=== PATIENT | female | born 1950 | race Two or more races ===

== ENCOUNTER 2023-06-15 10:20 | Outpatient (OUT) | payer MEDICARE, SELFPAY ==
--- NOTE | 2023-06-15 10:43 | MR_ITS ---
[address] [address] Patient Name: EDITH KHOURY MRN: [facility]:[id number] date: 1950 Sex: F Assigned Patient Location: MRI Current Patient Location: Accession/Order Number: [id number] Exam Date: 06/15/2023 10:49 Report Date: 06/16/2023 07:38 At the request of: NON-STAFF PHYSICIAN Procedure: MR lumbar spine wo con EXAMINATION: MR lumbar spine wo con HISTORY: Sacroiliitis M46.1 COMPARISON: 08/21/2020 TECHNIQUE: A variety of imaging planes and parameters were utilized for visualization of suspected pathology. FINDINGS: For the purposes of numbering, sagittal T2 image # 8 extends from the T10 vertebral body superiorly to the S3-S4 level inferiorly. PARASPINAL AREA: Normal with no visible mass. BONES: Normal alignment with no acute fracture or spondylolisthesis. Mild heterogeneous appearance of the marrow likely age-related change. Moderate degenerative spondylosis and facet osteoarthropathy CORD/CAUDA EQUINA: Normal caliber, contour, and signal intensity. DISC LEVELS: 12-L1: No significant disc/facet abnormality, spinal stenosis, or foraminal stenosis. L1-L2: No significant disc/facet abnormality, spinal stenosis, or foraminal stenosis. L2-L3: Moderate disc space narrowing and disc desiccation. Moderate diffuse disc/osteophyte complex and ligamentum flavum hypertrophy and facet osteoarthropathy. Moderate trefoil narrowing of the central canal, axial image #17. Minimal right and no left foraminal stenosis L3-L4: Mild disc space narrowing and disc desiccation. Mild diffuse disc/osteophyte complex and ligamentum flavum hypertrophy and facet osteoarthropathy. Moderate trefoil narrowing of the central canal, axial image #22. Moderate right and no left foraminal stenosis L4-L5: Disc collapse with endplate sclerosis right greater than left. Moderate diffuse disc/osteophyte complex and ligamentum flavum hypertrophy and facet osteoarthropathy. Severe central canal stenosis. Moderate bilateral foraminal stenosis L5-S1: Disc desiccation. Broad-based posterior disc herniation the protrusion type extending up to 3.8 mm. Bilateral facet osteoarthropathy. No central canal or right foraminal stenosis. Moderate narrowing of the left neural foramen. MR/MR lumbar spine wo con IMPRESSION: Degenerative changes resulting in moderate to severe central and foraminal stenosis at multiple levels as detailed above Electronically authenticated by: MARJORIE SUTTON Date: 06/16/2023 07:38
== END 2023-06-15 10:21 | disposition home or self-care (01) ==
LOC: MRI 10:23
PROVIDERS: PCP Family Medicine
DX: M46.1 Sacroiliitis, not elsewhere classified (principal); M51.36 Other intervertebral disc degeneration, lumbar region; M51.26 Other intervertebral disc displacement, lumbar region; M48.061 Spinal stenosis, lumbar region without neurogenic claudication; M47.816 Spondylosis without myelopathy or radiculopathy, lumbar region
CPT/HCPCS: 72148

== ENCOUNTER 2023-06-18 23:02 | Emergency (ER) | payer MEDICARE, SELFPAY ==
[2023-06-18 23:13] VITALS: BP 129/96; PULSE 81; RESP 16; TEMP 36.8; O2SAT 97; BMI 75.7
[2023-06-18] MEDS: IBUPROFEN 600 MG TABLET PO (23:51)
--- NOTE | 2023-06-18 23:53 | ED.SKABFB1 ---
HPI - Skin/Abscess/Foreign Bdy General Chief complaint: Skin/Abscess/Foreign Body Stated complaint: ABSCESS, LOWER EXTREMITY PAIN Time Seen by Provider: 06/18/23 23:19 Source: patient Mode of arrival: walk-in Limitations: no limitations History of Present Illness HPI narrative: The patient is doing diabetes coming to the ER with a right toe pain she mentioned that she already have a history of ingrowing toenail and she is supposed to see podiatry in 3 days The patient denies any other complaints she admits to walking more recently and also complaining of pain at the site No injury no other complaints Related Data Previous Rx's Medication Instructions Recorded clindamycin HCl 150 mg capsule 150 mg PO Q8H 3 days #9 caps 06/18/23 Allergies Allergy/AdvReac Type Severity Reaction Status Date / Time azithromycin Allergy Mild Hives Verified 06/18/23 23:25 [From Zithromax Z-Rk] cetirizine [From Zyrtec] Allergy Mild Hypertensio Verified 06/18/23 23:25 n ciprofloxacin [From Cipro] Allergy Mild Abdominal Verified 06/18/23 23:25 Pain Sulfa (Sulfonamide Allergy Mild Abdominal Verified 06/18/23 23:25 Antibiotics) Pain sulfamethoxazole Allergy Mild Nausea Verified 06/18/23 23:25 [From Bactrim] trimethoprim [From Bactrim] Allergy Mild Nausea Verified 06/18/23 23:25 Penicillins Allergy Hives Verified 06/18/23 23:25 morphine AdvReac Severe Palpitation Verified 06/18/23 23:25 s Review of Systems ROS Status of ROS 10 or more systems reviewed and unremarkable except as noted in history and below Exam Narrative Exam Narrative: Nurses notes and vital signs reviewed and patient is not hypoxic. General: Well-appearing and in no apparent distress. Skin: Warm, dry, no pallor noted. No rash. Head: Normocephalic, atraumatic. Neck: Supple, non-tender. Eye: Pupils are equal, round and EOMI. No scleral icterus. Ears, Nose, Mouth, and Throat: TM are clear, no nasal mucosal hypertrophy. Oral mucosa is moist, no posterior oropharynx erythema, uvula is mid-line Cardiovascular: Regular Rate and Rhythm without murmur, gallop or rub. Respiratory: No accessory muscle use or respiratory distress. Lungs are clear to auscultation, no wheezing, rales or rhonchi Chest Wall: no tenderness Back: No midline thoracic or lumbar vertebral tenderness. No CVA tenderness Musculoskeletal: normal ROM, no calf or popliteal tenderness, no lower extremity edema/swelling at the medial aspect of the greater toe nail there is a spot of 2 mm that is more ecchymosis that is mildly tender GI: Abdomen is soft, non-distended. Normal bowel sounds. No masses appreciated. No tenderness to palpation. No rebound, guarding, or rigidity noted. Neurological: A&O x4. No cranial nerve dysfunction observed. No truncal ataxia. Moves all extremities. Sensation intact. Psychiatric: Cooperative and interactive. Normal mood and affect. Constitutional Vital Signs, click to edit/add: Last Vital Signs Temp 98.2 F 06/18/23 23:13 Pulse 81 06/18/23 23:13 Resp 16 06/18/23 23:13 BP 129/96 H 06/18/23 23:13 Pulse Ox 97 06/18/23 23:13 O2 Del Method Room Air 06/18/23 23:13 Course Vital Signs Vital signs: Vital Signs Temperature 98.2 F 06/18/23 23:13 Pulse Rate 81 06/18/23 23:13 Respiratory Rate 16 06/18/23 23:13 Blood Pressure 129/96 H 06/18/23 23:13 Pulse Oximetry 97 06/18/23 23:13 Oxygen Delivery Method Room Air 06/18/23 23:13 Temperature 98.2 F 06/18/23 23:13 Pulse Rate 81 06/18/23 23:13 Respiratory Rate 16 06/18/23 23:13 Blood Pressure 129/96 H 06/18/23 23:13 Pulse Oximetry 97 06/18/23 23:13 Oxygen Delivery Method Room Air 06/18/23 23:13 MDM - Skin/Abscess/Foreign Bdy MDM Narrative Medical decision making narrative: The patient spot in her toe is mostly ecchymosis but with the patient history of being diabetic she was given 3 days of antibiotic prophylaxis she is supposed to see podiatry in 3 days She was instructed on the importance of following up with podiatry in 3 days The patient is to follow up with primary care physician in next 2-3 days or to return to the emergency department should any of the signs or symptoms worsen or new symptoms develop. The patient agrees with the following Diagnosis and Treatment plan and the patient will be discharged home. Discharge Plan Discharge Chief Complaint: Skin/Abscess/Foreign Body Clinical Impression: Ingrown nail Patient Disposition: Home, Self-Care Time of Disposition Decision: 23:40 Condition: Good Mode of Transportation: Private Vehicle Prescriptions / Home Meds: New clindamycin HCl 150 mg capsule 150 mg PO Q8H 3 Days Qty: 9 0RF Instructions: Ingrown Nail (ED) Stand Alone Forms: Portal Instructions Referrals: MATT SHEIKH [Primary Care Provider] - 1 week Zbigniew Jensen MD [Physician] - 06/22/23
== END 2023-06-18 23:55 | disposition home or self-care (01) ==
PROVIDERS: Emergency Provider Emergency Medicine; PCP Family Medicine
DX: L60.0 Ingrowing nail (principal); E11.9 Type 2 diabetes mellitus without complications
CPT/HCPCS: 99283

== ENCOUNTER 2023-07-20 18:21 | Emergency (ER) | payer MEDICARE, SELFPAY ==
[2023-07-20 18:41] VITALS: BP 170/60; PULSE 73; RESP 20; O2SAT 99; BMI 33.1
--- NOTE | 2023-07-20 18:46 | ECG_ITS ---
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
--- NOTE | 2023-07-20 18:46 | XR_ITS ---
[address] [address] Patient Name: EDITH KHOURY MRN: [facility]:[id number] date: 1950 Sex: F Assigned Patient Location: ER Current Patient Location: ER Accession/Order Number: [id number] Exam Date: 07/20/2023 19:15 Report Date: 07/20/2023 19:57 At the request of: TORI ARTEAGA Procedure: XR cervical spine 2-3V Exam: Radiographs: XR cervical spine 2-3V Reason for exam: Neck pain Comparison: Plain films dated 08/09/2018 XR/XR cervical spine 2-3V IMPRESSION: No radiographically evident cervical spine fractures. Mild anterolisthesis of C3 on C4 and C4-C5. Mild cervical spine degenerative changes with preserved intervertebral disc heights. Remainder unremarkable. Electronically authenticated by: SHEY RODRIGUEZ Date: 07/20/2023 19:57
--- NOTE | 2023-07-20 18:48 | ED_ITS ---
HPI - Neck Pain/Injury General Chief Complaint: Neck Pain/Injury Stated Complaint: NECK PAIN Time Seen by Provider: 07/20/23 18:41 Source: patient Mode of arrival: walk-in Limitations: no limitations History of Present Illness HPI Narrative: patient is a 73-year-old female who presents to the emergency department for a three day history of pain in the back of the neck radiating to the left side of the neck and behind the left ear. She denies any mechanism of injury or trauma. Pain is worse with movement of the head. She denies any pain radiation into the left arm or numbness or tingling of the left arm. no medications taken prior to arrival. Related Data Previous Rx's Medication Instructions Recorded clindamycin HCl 150 mg capsule 150 mg PO Q8H 3 days #9 caps 06/18/23 methocarbamol 500 mg tablet 500 mg PO Q8H #20 tabs 07/20/23 tramadol 50 mg tablet 50 mg PO Q4H PRN pain #15 tabs 07/20/23 Allergies Allergy/AdvReac Type Severity Reaction Status Date / Time azithromycin Allergy Mild Hives Verified 06/18/23 23:25 [From Zithromax Z-Rk] cetirizine [From Zyrtec] Allergy Mild Hypertensio Verified 06/18/23 23:25 n ciprofloxacin [From Cipro] Allergy Mild Abdominal Verified 06/18/23 23:25 Pain Sulfa (Sulfonamide Allergy Mild Abdominal Verified 06/18/23 23:25 Antibiotics) Pain sulfamethoxazole Allergy Mild Nausea Verified 06/18/23 23:25 [From Bactrim] trimethoprim [From Bactrim] Allergy Mild Nausea Verified 06/18/23 23:25 Penicillins Allergy Hives Verified 06/18/23 23:25 morphine AdvReac Severe Palpitation Verified 06/18/23 23:25 s Review of Systems ROS Constitutional Denies: fever or chills Ears, nose, mouth, and throat Reports: neck pain Cardiovascular Denies: chest pain Respiratory Denies: shortness of breath Gastrointestinal Denies: nausea or vomiting Musculoskeletal Reports: neck pain; Denies: back pain Integumentary/Breast Denies: rash Neurological Denies: headache Allergic/Immunologic Denies: hives Exam Narrative Exam Narrative: Gen.: Awake, alert, in no distress Head: Normocephalic, atraumatic ENT: Moist mucous membranes; left tympanic membrane is clear with a white tympanic membrane tube present Neck: no posterior bony point tenderness of the cervical spine with diffuse tenderness of the left paraspinal cervical muscles and left trapezius muscle. 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 Normal flexion and extension of the upper extremities, no deficit in biceps tendon strength. Normal abduction of the left shoulder. Psych: Normal mood and affect Neuro: No focal neuro deficit Skin: Warm, dry, intact Constitutional Vital Signs, click to edit/add: Last Vital Signs Pulse 73 07/20/23 18:41 Resp 20 07/20/23 18:41 BP 170/60 H 07/20/23 18:41 Pulse Ox 99 07/20/23 18:41 O2 Del Method Room Air 07/20/23 18:41 Course Vital Signs Vital signs: Vital Signs Pulse Rate 73 07/20/23 18:41 Respiratory Rate 20 07/20/23 18:41 Blood Pressure 170/60 H 07/20/23 18:41 Pulse Oximetry 99 07/20/23 18:41 Oxygen Delivery Method Room Air 07/20/23 18:41 Pulse Rate 73 07/20/23 18:41 Respiratory Rate 20 07/20/23 18:41 Blood Pressure 170/60 H 07/20/23 18:41 Pulse Oximetry 99 07/20/23 18:41 Oxygen Delivery Method Room Air 07/20/23 18:41 MDM - Neck Pain/Injury MDM Narrative Medical decision making narrative: x-rays with no evidence of acute process, patient with degenerative disc disease. Exam is consistent with muscular pain of the neck, the patient had an EKG that was unremarkable. She is discharged home with short course of analgesics and muscle relaxants follow-up with her PCP. OARRS shows the patient has been on tramadol chronically in the past but has not been on this medication in several months. She is prescribed tramadol and Robaxin for home. Rest, ice, gentle stretching. Follow-up with PCP and return to the Emergency Room if symptoms change or worsen Medical Records Attestation: I reviewed the patient's medical records. Imaging Data XR cervical spine: Attestation: I have reviewed the pertinent imaging results. Radiologist's impression: Procedure: XR cervical spine 2-3V Exam: Radiographs: XR cervical spine 2-3V Reason for exam: Neck pain Comparison: Plain films dated 08/09/2018 IMPRESSION: No radiographically evident cervical spine fractures. Mild anterolisthesis of C3 on C4 and C4-C5. Mild cervical spine degenerative changes with preserved intervertebral disc heights. Remainder unremarkable. Electronically authenticated by: SHEY RODRIGUEZ Date: 07/20/2023 19:57 ECG Data Attestation: I personally reviewed and interpreted this ECG as follows: (normal sinus rhythm at a rate of sixty-three, right bundle branch block, no acute ST elevation or ectopy. EKG reviewed by attending physician.) Discharge Plan Discharge Chief Complaint: Neck Pain/Injury Clinical Impression: Acute neck pain, Cervical muscle strain, Degenerative arthritis of cervical spine Patient Disposition: Home, Self-Care Time of Disposition Decision: 20:18 Condition: Good Prescriptions / Home Meds: New methocarbamol 500 mg tablet 500 mg PO Q8H Qty: 20 0RF tramadol 50 mg tablet 50 mg PO Q4H PRN (Reason: pain) Qty: 15 0RF No Action clindamycin HCl 150 mg capsule 150 mg PO Q8H 3 Days Qty: 9 0RF Stand Alone Forms: Portal Instructions Referrals: MATT SHEIKH [Primary Care Provider] - 1 week
[2023-07-20] MEDS: METHOCARBAMOL 500 MG TABLET PO (19:58)
[2023-07-20 20:52] VITALS: PULSE 86; RESP 16; O2SAT 97
== END 2023-07-20 20:52 | disposition home or self-care (01) ==
PROVIDERS: Emergency Provider Emergency Medicine; PCP Family Medicine
DX: S16.1XXA Strain of muscle, fascia and tendon at neck level, initial encounter (principal); M54.2 Cervicalgia; M47.812 Spondylosis without myelopathy or radiculopathy, cervical region; X58.XXXA Exposure to other specified factors, initial encounter
CPT/HCPCS: 72040; 93005; 99284

== ENCOUNTER 2023-07-22 08:53 | Emergency (ER) | payer MEDICARE, SELFPAY ==
[2023-07-22] VITALS (16 sets, daily range): BP systolic 132–169; BP diastolic 55–61; PULSE 58–70; RESP 13–30; TEMP 36.7; O2SAT 92–96; BMI 33.2
--- NOTE | 2023-07-22 09:30 | ECG_ITS ---
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
[2023-07-22] MEDS: ONDANSETRON PF 4 MG/2 ML VIAL IV (09:45)
[2023-07-22] MEDS: FAMOTIDINE/PF 20 MG/2 ML VIAL IV (09:45)
[2023-07-22] MEDS: KETOROLAC TROMETHAMINE 30 MG/ML VIAL 15 MG IVP ×2 (09:45→11:44)
[2023-07-22 10:01] LABS: Basophils Absolute Auto 0.1 10^3/uL (0.0-0.1); Basophils Percent Auto 0.6 % (0.2-2.0); Eosinophils Absolute Auto 0.1 10^3/uL (0.0-0.7); Eosinophils Percent Auto 1.3 % (0.9-7.0); Hematocrit 34.3 % (36.0-48.0); Hemoglobin 11.4 g/dL (12.0-16.0); Immature Granulocytes Abs Auto 0.03 10^3/uL (0.00-0.03); Immature Granulocytes Pct Auto 0.4 % (0.0-0.5); Lymphocytes Absolute Auto 1.6 10^3/uL (1.2-3.8); Lymphocytes Percent Auto 19.2 % (20.5-60.0); Mean Corpuscular HGB Conc 33.2 g/dL (29.9-35.2); Mean Corpuscular Hemoglobin 30.6 pg (26.7-34.0); Mean Platelet Volume 9.4 fL (9.5-13.5); Monocytes Absolute Auto 0.4 10^3/uL (0.3-0.8); Monocytes Percent Auto 4.6 % (1.7-12.0); Neutrophils Absolute Auto 6.1 10^3/uL (1.4-6.5); Neutrophils Percent Auto 73.9 % (43.0-75.0); Platelet Count 222 10^3/uL (150-450); Red Blood Count 3.73 10^6/uL (4.20-5.40); White Blood Count 8.3 10^3/uL (4.0-11.0)
[2023-07-22 10:10] LABS: Alanine Aminotransferase 21 U/L (14-59); Albumin Globulin Ratio 0.9; Albumin Level 3.1 g/dL (3.4-5.0); Alkaline Phosphatase 88 U/L (46-116); Anion Gap 11.8; Aspartate Amino Transferase 15 U/L (15-37); BUN Creatinine Ratio 25.4; Bilirubin Total 0.7 mg/dL (0.2-1.0); Carbon Dioxide 26.7 mmol/L (21.0-32.0); Chloride 101 mmol/L (98-107); Estimated GFR (African America >60 (>=60); Estimated GFR (Non-African Ame >60 (>=60); Globulin 3.6 g/dL; Glucose 162 mg/dL (74-106); Potassium 3.5 mmol/L (3.5-5.1); Sodium 136 mmol/L (136-145); Total Protein 6.7 g/dL (6.4-8.2)
[2023-07-22 10:13] LABS: Troponin I High Sensitivity 6.3 pg/mL (4.0-51.3)
--- NOTE | 2023-07-22 11:01 | ED_ITS ---
HPI - Back Pain/Injury General Chief Complaint: Back Pain/Injury Stated Complaint: BACK PAIN/NECK PAIN Time Seen by Provider: 07/22/23 09:24 Source: patient Mode of arrival: walk-in Limitations: no limitations History of Present Illness HPI Narrative: The patient is coming to the ER after she was just evaluated almost 2 days ago for her left-sided neck pain complaint is that she will woke up this morning with the neck pain and nausea, although initially the patient mentioned that she had the nausea after she took her tramadol but then she said that she woke up with nausea, there was no chest pain at any time no fever no chills no coughing and her neck pain is still there and is exacerbated with movement There is no sweating or any other complaints there was no difficulty breathing Related Data Previous Rx's Medication Instructions Recorded clindamycin HCl 150 mg capsule 150 mg PO Q8H 3 days #9 caps 06/18/23 methocarbamol 500 mg tablet 500 mg PO Q8H #20 tabs 07/20/23 tramadol 50 mg tablet 50 mg PO Q4H PRN pain #15 tabs 07/20/23 famotidine 20 mg tablet (Pepcid) 20 mg PO BID #20 tabs 07/22/23 meloxicam 7.5 mg tablet 7.5 mg PO DAILY PRN pain #10 tabs 07/22/23 ondansetron 4 mg disintegrating 4 mg PO Q8H nausea and vomiting 07/22/23 tablet 24 hours #3 tabs Allergies Allergy/AdvReac Type Severity Reaction Status Date / Time azithromycin Allergy Mild Hives Verified 06/18/23 23:25 [From Zithromax Z-Rk] cetirizine [From Zyrtec] Allergy Mild Hypertensio Verified 06/18/23 23:25 n ciprofloxacin [From Cipro] Allergy Mild Abdominal Verified 06/18/23 23:25 Pain Sulfa (Sulfonamide Allergy Mild Abdominal Verified 06/18/23 23:25 Antibiotics) Pain sulfamethoxazole Allergy Mild Nausea Verified 06/18/23 23:25 [From Bactrim] trimethoprim [From Bactrim] Allergy Mild Nausea Verified 06/18/23 23:25 Penicillins Allergy Hives Verified 06/18/23 23:25 morphine AdvReac Severe Palpitation Verified 06/18/23 23:25 s Review of Systems ROS Status of ROS 10 or more systems reviewed and unremarkable except as noted in history and below [facility] Social History Smoking status: Never smoker Exam Narrative Exam Narrative: Nurses notes and vital signs reviewed and patient is not hypoxic. General: Well-appearing and in no apparent distress. Skin: Warm, dry, no pallor noted. No rash. Head: Normocephalic, atraumatic. Neck: The patient have no intervertebral line tenderness she have paraspinal muscle tenderness in both sides mostly to the lower cervical level Eye: Pupils are equal, round and EOMI. No scleral icterus. Ears, Nose, Mouth, and Throat: TM are clear, no nasal mucosal hypertrophy. Oral mucosa is moist, no posterior oropharynx erythema, uvula is mid-line Cardiovascular: Regular Rate and Rhythm without murmur, gallop or rub. Respiratory: No accessory muscle use or respiratory distress. Lungs are clear to auscultation, no wheezing, rales or rhonchi Chest Wall: no tenderness Back: No midline thoracic or lumbar vertebral tenderness. No CVA tenderness Musculoskeletal: normal ROM, no calf or popliteal tenderness, no lower extremity edema/swelling GI: Abdomen is soft, non-distended. Normal bowel sounds. No masses appreciated. No tenderness to palpation. No rebound, guarding, or rigidity noted. Neurological: A&O x4. No cranial nerve dysfunction observed. No truncal ataxia. Moves all extremities. Sensation intact. Psychiatric: Cooperative and interactive. Normal mood and affect. Constitutional Vital Signs, click to edit/add: Last Vital Signs Temp 98.0 F 07/22/23 08:59 Pulse 65 07/22/23 10:20 Resp 14 07/22/23 10:20 BP 132/55 07/22/23 10:00 Pulse Ox 94 L 07/22/23 10:20 O2 Del Method Room Air 07/22/23 08:59 Course Vital Signs Vital signs: Vital Signs Temperature 98.0 F 07/22/23 08:59 Pulse Rate 63 07/22/23 08:59 Respiratory Rate 16 07/22/23 08:59 Blood Pressure 169/61 H 07/22/23 08:59 Pulse Oximetry 96 07/22/23 08:59 Oxygen Delivery Method Room Air 07/22/23 08:59 Temperature 98.0 F 07/22/23 08:59 Pulse Rate 65 07/22/23 10:20 Respiratory Rate 14 07/22/23 10:20 Blood Pressure 132/55 07/22/23 10:00 Pulse Oximetry 94 L 07/22/23 10:20 Oxygen Delivery Method Room Air 07/22/23 08:59 MDM - Back Pain/Injury MDM Narrative Medical decision making narrative: 2The patient EKG upon presentation showing sinus rhythm with a heart rate of 68 no significant acute changes compared to old EKG The patient CBC chemistry as well as troponin were negative the troponin will be repeated again just to make sure the patient have no cardiac reason for her nausea But she is presenting with a nausea and she admits that she took her tramadol on empty stomach Right now the patient was feeling much better after she was treated in the ER with Toradol as well as Zofran The patient was discharged home with Pepcid Zofran for only 24 hours as well as Mobic for pain avoid using tramadol unless she did that for pain if that Mobic is not working also she was instructed to take all her medication with food The patient is to follow up with primary care physician in next 2-3 days or to return to the emergency department should any of the signs or symptoms worsen or new symptoms develop. The patient agrees with the following Diagnosis and Treatment plan and the patient will be discharged home. Lab Data Labs: Lab Results 07/22/23 07/22/23 Range/Units 09:38 10:47 WBC 8.3 (4.0-11.0) 10^3/uL RBC 3.73 L (4.20-5.40) 10^6/uL Hgb 11.4 L (12.0-16.0) g/dL Hct 34.3 L (36.0-48.0) % MCV 92.0 (81.0-99.0) fL MCH 30.6 (26.7-34.0) pg MCHC 33.2 (29.9-35.2) g/dL RDW 14.0 (11.0-15.0) % Plt Count 222 (150-450) 10^3/uL MPV 9.4 L (9.5-13.5) fL Neut % (Auto) 73.9 (43.0-75.0) % Lymph % (Auto) 19.2 L (20.5-60.0) % Mcdonald % (Auto) 4.6 (1.7-12.0) % Eos % (Auto) 1.3 (0.9-7.0) % Baso % (Auto) 0.6 (0.2-2.0) % Neut # (Auto) 6.1 (1.4-6.5) 10^3/uL Lymph # (Auto) 1.6 (1.2-3.8) 10^3/uL Mcdonald # (Auto) 0.4 (0.3-0.8) 10^3/uL Eos # (Auto) 0.1 (0.0-0.7) 10^3/uL Baso # (Auto) 0.1 (0.0-0.1) 10^3/uL Abs Immat Gran (auto) 0.03 (0.00-0.03) 10^3/uL Imm/Tot Granulo (auto) 0.4 (0.0-0.5) % Sodium 136 (136-145) mmol/L Potassium 3.5 (3.5-5.1) mmol/L Chloride 101 (98-107) mmol/L Carbon Dioxide 26.7 (21.0-32.0) mmol/L Anion Gap 11.8 BUN 16.0 (7.0-18.0) mg/dL Creatinine 0.63 (0.55-1.02) mg/dL Est GFR ( Amer) >60 (>=60) Est GFR (Non-Af Amer) >60 (>=60) BUN/Creatinine Ratio 25.4 Glucose 162 H (74-106) mg/dL Calcium 9.0 (8.5-10.1) mg/dL Total Bilirubin 0.7 (0.2-1.0) mg/dL AST 15 (15-37) U/L ALT 21 (14-59) U/L Alkaline Phosphatase 88 (46-116) U/L Troponin I High Sens 6.3 7.3 (4.0-51.3) pg/mL Total Protein 6.7 (6.4-8.2) g/dL Albumin 3.1 L (3.4-5.0) g/dL Globulin 3.6 g/dL Albumin/Globulin Ratio 0.9 Discharge Plan Discharge Chief Complaint: Back Pain/Injury Clinical Impression: Pill gastritis Patient Disposition: Home, Self-Care Time of Disposition Decision: 11:24 Condition: Good Prescriptions / Home Meds: New famotidine [Pepcid] 20 mg tablet 20 mg PO BID Qty: 20 0RF meloxicam 7.5 mg tablet 7.5 mg PO DAILY PRN (Reason: pain ) Qty: 10 0RF ondansetron 4 mg tablet,disintegrating 4 mg PO Q8H 1 Days Qty: 3 0RF No Action clindamycin HCl 150 mg capsule 150 mg PO Q8H 3 Days Qty: 9 0RF methocarbamol 500 mg tablet 500 mg PO Q8H Qty: 20 0RF tramadol 50 mg tablet 50 mg PO Q4H PRN (Reason: pain) Qty: 15 0RF Instructions: Gastritis (ED) Stand Alone Forms: Portal Instructions Referrals: MATT SHEIKH [Primary Care Provider] - 1 week
[2023-07-22 11:13] LABS: Troponin I High Sensitivity 7.3 pg/mL (4.0-51.3)
== END 2023-07-22 12:12 | disposition home or self-care (01) ==
PROVIDERS: Emergency Provider Emergency Medicine; PCP Family Medicine
DX: K29.60 Other gastritis without bleeding (principal); Z79.899 Other long term (current) drug therapy
CPT/HCPCS: 36415; 80053; 84484; 85025; 93005; 96374; 96375; 96376; 99285

== ENCOUNTER 2024-01-01 17:40 | Emergency (ER) | payer MEDICARE, SELFPAY ==
[2024-01-01 17:45] VITALS: BP 153/83; PULSE 83; RESP 18; TEMP 36.9; O2SAT 99; BMI 30.9
--- NOTE | 2024-01-01 18:08 | ED_ITS ---
HPI - Dental/Oral General Chief complaint: Dental/Oral Stated complaint: MOUTH PAIN Time Seen by Provider: 01/01/24 17:57 Source: patient Mode of arrival: walk-in Limitations: no limitations History of Present Illness HPI Narrative: The patient presented with a dental pain that started after she was eating a hard candy. Pain in the right upper dental area no other complaints Related Data Home Medications Medication Instructions Recorded Confirmed albuterol sulfate 90 mcg/actuation 2 puff inhalation DAILY PRN 01/01/24 01/01/24 aerosol inhaler shortness of breath or wheezing amlodipine 2.5 mg tablet 2.5 mg PO DAILY 01/01/24 01/01/24 aspirin 81 mg tablet,delayed 81 mg PO DAILY 01/01/24 01/01/24 release (Adult Aspirin Regimen) atorvastatin 10 mg tablet 10 mg PO DAILY 01/01/24 01/01/24 benzonatate 100 mg capsule 100 mg PO TID PRN cough 01/01/24 01/01/24 doxycycline monohydrate 100 mg 100 mg PO DAILY 01/01/24 01/01/24 capsule fluticasone 250 mcg-salmeterol 50 1 inh inhalation Q12H 01/01/24 01/01/24 mcg/dose blistr powdr for inhalation levothyroxine 100 mcg tablet 100 mcg PO DAILY 01/01/24 01/01/24 (Synthroid) loratadine 10 mg tablet 10 mg PO DAILY 01/01/24 01/01/24 metformin 500 mg tablet 500 mg PO DAILY 01/01/24 01/01/24 mometasone 50 mcg/actuation nasal 1 spray intranasal PRN allergy 01/01/24 spray symptoms pantoprazole 40 mg tablet,delayed 40 mg PO DAILY 01/01/24 01/01/24 release ramipril 10 mg capsule 10 mg PO DAILY 01/01/24 01/01/24 Previous Rx's Medication Instructions Recorded methocarbamol 500 mg tablet 500 mg PO Q8H #20 tabs 07/20/23 tramadol 50 mg tablet 50 mg PO Q4H PRN pain #15 tabs 07/20/23 meloxicam 7.5 mg tablet 7.5 mg PO DAILY PRN pain #10 tabs 07/22/23 clindamycin HCl 300 mg capsule 300 mg PO Q8H 7 days #21 caps 01/01/24 meloxicam 7.5 mg tablet 7.5 mg PO DAILY PRN pain #10 tabs 01/01/24 Allergies Allergy/AdvReac Type Severity Reaction Status Date / Time azithromycin Allergy Mild Hives Verified 06/18/23 23:25 [From Zithromax Z-Rk] cetirizine [From Zyrtec] Allergy Mild Hypertensio Verified 06/18/23 23:25 n ciprofloxacin [From Cipro] Allergy Mild Abdominal Verified 06/18/23 23:25 Pain Sulfa (Sulfonamide Allergy Mild Abdominal Verified 06/18/23 23:25 Antibiotics) Pain sulfamethoxazole Allergy Mild Nausea Verified 06/18/23 23:25 [From Bactrim] trimethoprim [From Bactrim] Allergy Mild Nausea Verified 06/18/23 23:25 Penicillins Allergy Hives Verified 06/18/23 23:25 morphine AdvReac Severe Palpitation Verified 06/18/23 23:25 s Review of Systems ROS Status of ROS 10 or more systems reviewed and unremark able except as noted in history and below PFSH PFS Social History Smoking status: Never smoker Exam Narrative Exam Narrative: Nurses notes and vital signs reviewed and patient is not hypoxic. Dental: It was noted that the patient have very poor dental hygiene with a 6 tooth is decayed with erythematous gum the seventh tooth have crown there is tenderness on palpation General: Well-appearing and in no apparent distress. Skin: Warm, dry, no pallor noted. No rash. Head: Normocephalic, atraumatic. Neck: Supple, non-tender. Eye: Pupils are equal, round and EOMI. No scleral icterus. Ears, Nose, Mouth, and Throat: TM are clear, no nasal mucosal hypertrophy. Oral mucosa is moist, no posterior oropharynx erythema, uvula is mid-line Cardiovascular: Regular Rate and Rhythm without murmur, gallop or rub. Respiratory: No accessory muscle use or respiratory distress. Lungs are clear to auscultation, no wheezing, rales or rhonchi Chest Wall: no tenderness Back: No midline thoracic or lumbar vertebral tenderness. No CVA tenderness Musculoskeletal: normal ROM, no calf or popliteal tenderness, no lower extremity edema/swelling GI: Abdomen is soft, non-distended. Normal bowel sounds. No masses appreciated. No tenderness to palpation. No rebound, guarding, or rigidity noted. Neurological: A&O x4. No cranial nerve dysfunction observed. No truncal ataxia. Moves all extremities. Sensation intact. Psychiatric: Cooperative and interactive. Normal mood and affect. Constitutional Vital Signs, click to edit/add: Last Vital Signs Temp 98.4 F 01/01/24 17:45 Pulse 83 01/01/24 17:45 Resp 18 01/01/24 17:45 BP 153/83 H 01/01/24 17:45 Pulse Ox 99 01/01/24 17:45 O2 Del Method Room Air 01/01/24 17:45 Course Vital Signs Vital signs: Vital Signs Temperature 98.4 F 01/01/24 17:45 Pulse Rate 83 01/01/24 17:45 Respiratory Rate 18 01/01/24 17:45 Blood Pressure 153/83 H 01/01/24 17:45 Pulse Oximetry 99 01/01/24 17:45 Oxygen Delivery Method Room Air 01/01/24 17:45 Temperature 98.4 F 01/01/24 17:45 Pulse Rate 83 01/01/24 17:45 Respiratory Rate 18 01/01/24 17:45 Blood Pressure 153/83 H 01/01/24 17:45 Pulse Oximetry 99 01/01/24 17:45 Oxygen Delivery Method Room Air 01/01/24 17:45 MDM - Dental/Oral MDM Narrative Medical decision making narrative: The patient presenting to us with dental pain mostly secondary to dental infection she was treated with clindamycin in addition to local pain control in the ER discharged home with Mobic and clindamycin with referred to the dentist with outpatient The patient is to follow up with primary care physician in next 2-3 days or to return to the emergency department should any of the signs or symptoms worsen or new symptoms develop. The patient agrees with the following Diagnosis and Treatment plan and the patient will be discharged home. Discharge Plan Discharge Chief Complaint: Dental/Oral Clinical Impression: Pain, dental Patient Disposition: Home, Self-Care Time of Disposition Decision: 18:11 Condition: Good Prescriptions / Home Meds: New clindamycin HCl 300 mg capsule 300 mg PO Q8H 7 Days Qty: 21 0RF meloxicam 7.5 mg tablet 7.5 mg PO DAILY PRN (Reason: pain ) Qty: 10 0RF No Action methocarbamol 500 mg tablet 500 mg PO Q8H Qty: 20 0RF tramadol 50 mg tablet 50 mg PO Q4H PRN (Reason: pain) Qty: 15 0RF meloxicam 7.5 mg tablet 7.5 mg PO DAILY PRN (Reason: pain ) Qty: 10 0RF amlodipine 2.5 mg tablet 2.5 mg PO DAILY aspirin [Adult Aspirin Regimen] 81 mg tablet,delayed release (DR/EC) 81 mg PO DAILY atorvastatin 10 mg tablet 10 mg PO DAILY benzonatate 100 mg capsule 100 mg PO TID PRN (Reason: cough) doxycycline monohydrate 100 mg capsule 100 mg PO DAILY levothyroxine [Synthroid] 100 mcg tablet 100 mcg PO DAILY loratadine 10 mg tablet 10 mg PO DAILY fluticasone propion-salmeterol 250-50 mcg/dose blister with device 1 inh INHALATION Q12H metformin 500 mg tablet 500 mg PO DAILY pantoprazole 40 mg tablet,delayed release (DR/EC) 40 mg PO DAILY ramipril 10 mg capsule 10 mg PO DAILY albuterol sulfate 90 mcg/actuation HFA aerosol inhaler 2 puff INHALATION DAILY PRN (Reason: shortness of breath or wheezing) mometasone 50 mcg/actuation spray,non-aerosol 1 spray INTRANASAL PRN (Reason: allergy symptoms) Instructions: Toothache (ED) Stand Alone Forms: Portal Instructions Referrals: MATT SHEIKH [Primary Care Provider] - 1 week
[2024-01-01] MEDS: BENZOCAINE 30 ML, lidocaine HCL 15 ML MM (18:22)
[2024-01-01] MEDS: CLINDAMYCIN HCL 150 MG CAPSULE 300 MG PO (18:22)
[2024-01-01] MEDS: IBUPROFEN 600 MG TABLET PO (18:22)
[2024-01-01 18:28] VITALS: BP 138/70; PULSE 84; RESP 16; O2SAT 99
== END 2024-01-01 18:30 | disposition home or self-care (01) ==
PROVIDERS: Emergency Provider Emergency Medicine; PCP Family Medicine
DX: K08.89 Other specified disorders of teeth and supporting structures (principal); Z79.899 Other long term (current) drug therapy; Z79.82 Long term (current) use of aspirin; Z79.890 Hormone replacement therapy; Z79.84 Long term (current) use of oral hypoglycemic drugs
CPT/HCPCS: 99283

== ENCOUNTER 2024-01-03 14:39 | Emergency (ER) | payer MEDICARE, SELFPAY ==
[2024-01-03 14:42] VITALS: BP 132/56; PULSE 81; RESP 16; TEMP 37.3; O2SAT 97; BMI 36.4
--- NOTE | 2024-01-03 14:54 | ED.DENTAL1 ---
HPI - Dental/Oral General Chief complaint: Dental/Oral Stated complaint: dental pain Time Seen by Provider: 01/03/24 14:41 Source: patient Mode of arrival: walk-in Limitations: no limitations History of Present Illness HPI Narrative: 73-year-old female presents to the emergency department for swelling to her right upper jaw. She has a bad tooth and has a dentist appointment tomorrow. She has been on clindamycin for a few days. No difficulty breathing or swallowing. She has been taking [id number] Tylenol which is helping with the pain and she does not have pain at this moment. Related Data Home Medications Medication Instructions Recorded Confirmed albuterol sulfate 90 mcg/actuation 2 puff inhalation DAILY PRN 01/01/24 01/01/24 aerosol inhaler shortness of breath or wheezing amlodipine 2.5 mg tablet 2.5 mg PO DAILY 01/01/24 01/01/24 aspirin 81 mg tablet,delayed 81 mg PO DAILY 01/01/24 01/01/24 release (Adult Aspirin Regimen) atorvastatin 10 mg tablet 10 mg PO DAILY 01/01/24 01/01/24 benzonatate 100 mg capsule 100 mg PO TID PRN cough 01/01/24 01/01/24 doxycycline monohydrate 100 mg 100 mg PO DAILY 01/01/24 01/01/24 capsule fluticasone 250 mcg-salmeterol 50 1 inh inhalation Q12H 01/01/24 01/01/24 mcg/dose blistr powdr for inhalation levothyroxine 100 mcg tablet 100 mcg PO DAILY 01/01/24 01/01/24 (Synthroid) loratadine 10 mg tablet 10 mg PO DAILY 01/01/24 01/01/24 metformin 500 mg tablet 500 mg PO DAILY 01/01/24 01/01/24 mometasone 50 mcg/actuation nasal 1 spray intranasal PRN allergy 01/01/24 spray symptoms pantoprazole 40 mg tablet,delayed 40 mg PO DAILY 01/01/24 01/01/24 release ramipril 10 mg capsule 10 mg PO DAILY 01/01/24 01/01/24 Previous Rx's Medication Instructions Recorded methocarbamol 500 mg tablet 500 mg PO Q8H #20 tabs 07/20/23 tramadol 50 mg tablet 50 mg PO Q4H PRN pain #15 tabs 07/20/23 meloxicam 7.5 mg tablet 7.5 mg PO DAILY PRN pain #10 tabs 07/22/23 clindamycin HCl 300 mg capsule 300 mg PO Q8H 7 days #21 caps 01/01/24 meloxicam 7.5 mg tablet 7.5 mg PO DAILY PRN pain #10 tabs 01/01/24 Allergies Allergy/AdvReac Type Severity Reaction Status Date / Time azithromycin Allergy Mild Hives Verified 06/18/23 23:25 [From Zithromax Z-Rk] cetirizine [From Zyrtec] Allergy Mild Hypertensio Verified 06/18/23 23:25 n ciprofloxacin [From Cipro] Allergy Mild Abdominal Verified 06/18/23 23:25 Pain Sulfa (Sulfonamide Allergy Mild Abdominal Verified 06/18/23 23:25 Antibiotics) Pain sulfamethoxazole Allergy Mild Nausea Verified 06/18/23 23:25 [From Bactrim] trimethoprim [From Bactrim] Allergy Mild Nausea Verified 06/18/23 23:25 Penicillins Allergy Hives Verified 06/18/23 23:25 morphine AdvReac Severe Palpitation Verified 06/18/23 23:25 s Review of Systems ROS Narrative A ten point review of systems is negative except as noted above. PFSH PFS Social History Smoking status: Never smoker Exam Narrative Exam Narrative: Nurses note and vital signs reviewed and patient is not hypoxic. General: The patient appears well and in no apparent distress. Patient is resting comfortably on cart. Skin: Warm, dry, no pallor noted. There is no rash noted. Head: Normocephalic, atraumatic Eye: Normal conjunctiva, no drainage Ears, Nose, Mouth, and Throat: oral mucosa is moist. Nares patent. Dental caries is noted in the right upper dentition. She has right-sided facial swelling. No swelling to the floor of her mouth. She is handling her oral secretions well. Cardiovascular: Regular Rate and Rhythm Respiratory: Patient is in no distress, no accessory muscle use, lungs are clear to auscultation, no wheezing, rales or rhonchi Back: non-tender GI: Soft and nontender Musculoskeletal: The patient has no evidence of calf tenderness, no pitting edema, symmetrical pulses noted bilaterally Neurological: A&O, normal speech Psychiatric: Cooperative Constitutional Vital Signs, click to edit/add: Last Vital Signs Temp 99.1 F 01/03/24 14:42 Pulse 81 01/03/24 14:42 Resp 16 01/03/24 14:42 BP 132/56 01/03/24 14:42 Pulse Ox 97 01/03/24 14:42 O2 Del Method Room Air 01/03/24 14:42 Course Vital Signs Vital signs: Vital Signs Temperature 99.1 F 01/03/24 14:42 Pulse Rate 81 01/03/24 14:42 Respiratory Rate 16 01/03/24 14:42 Blood Pressure 132/56 01/03/24 14:42 Pulse Oximetry 97 01/03/24 14:42 Oxygen Delivery Method Room Air 01/03/24 14:42 Temperature 99.1 F 01/03/24 14:42 Pulse Rate 81 01/03/24 14:42 Respiratory Rate 16 01/03/24 14:42 Blood Pressure 132/56 01/03/24 14:42 Pulse Oximetry 97 01/03/24 14:42 Oxygen Delivery Method Room Air 01/03/24 14:42 MDM - Dental/Oral MDM Narrative Medical decision making narrative: She is allergic to penicillin. She is given IV clindamycin and will see the dentist tomorrow. She was offered prescription pain medication but wants to stick with [id number]-[id number] Tylenol. Treatment diagnosis and follow-up were discussed with the patient. Differential Diagnosis Differential diagnosis: Likely gingival abscess, dental caries, toothache and dental abscess Discharge Plan Discharge Chief Complaint: Dental/Oral Clinical Impression: Dental infection Patient Disposition: Home, Self-Care Time of Disposition Decision: 14:52 Condition: Good Mode of Transportation: Private Vehicle Prescriptions / Home Meds: No Action methocarbamol 500 mg tablet 500 mg PO Q8H Qty: 20 0RF tramadol 50 mg tablet 50 mg PO Q4H PRN (Reason: pain) Qty: 15 0RF meloxicam 7.5 mg tablet 7.5 mg PO DAILY PRN (Reason: pain ) Qty: 10 0RF amlodipine 2.5 mg tablet 2.5 mg PO DAILY aspirin [Adult Aspirin Regimen] 81 mg tablet,delayed release (DR/EC) 81 mg PO DAILY atorvastatin 10 mg tablet 10 mg PO DAILY benzonatate 100 mg capsule 100 mg PO TID PRN (Reason: cough) doxycycline monohydrate 100 mg capsule 100 mg PO DAILY levothyroxine [Synthroid] 100 mcg tablet 100 mcg PO DAILY loratadine 10 mg tablet 10 mg PO DAILY fluticasone propion-salmeterol 250-50 mcg/dose blister with device 1 inh INHALATION Q12H metformin 500 mg tablet 500 mg PO DAILY pantoprazole 40 mg tablet,delayed release (DR/EC) 40 mg PO DAILY ramipril 10 mg capsule 10 mg PO DAILY albuterol sulfate 90 mcg/actuation HFA aerosol inhaler 2 puff INHALATION DAILY PRN (Reason: shortness of breath or wheezing) mometasone 50 mcg/actuation spray,non-aerosol 1 spray INTRANASAL PRN (Reason: allergy symptoms) clindamycin HCl 300 mg capsule 300 mg PO Q8H 7 Days Qty: 21 0RF meloxicam 7.5 mg tablet 7.5 mg PO DAILY PRN (Reason: pain ) Qty: 10 0RF Instructions: Dental Abscess (ED) Additional Instructions: See your dentist at your appointment tomorrow. Continue the clindamycin at home. Stand Alone Forms: Portal Instructions Referrals: MATT SHEIKH [Primary Care Provider] - 1 week
[2024-01-03] MEDS: CLINDAMYCIN PHOSPHATE/D5W 600 MG/50 ML PIGGYBACK 100 MG IV (15:01)
== END 2024-01-03 15:38 | disposition home or self-care (01) ==
PROVIDERS: Emergency Provider Emergency Medicine; PCP Family Medicine
DX: K04.7 Periapical abscess without sinus (principal); Z79.82 Long term (current) use of aspirin; Z79.84 Long term (current) use of oral hypoglycemic drugs; Z79.890 Hormone replacement therapy
CPT/HCPCS: 96365; 99284

== ENCOUNTER 2024-04-28 12:18 | Outpatient (OUT) | payer MEDICARE, SELFPAY ==
--- NOTE | 2024-04-28 12:29 | MR_ITS ---
[address] [address] Patient Name: EDITH KHOURY MRN: [id number] date: 1950 Sex: F Assigned Patient Location: LAB Current Patient Location: Accession/Order Number: [id number] Exam Date: 04/28/2024 13:00 Report Date: 05/01/2024 14:23 At the request of: NON-STAFF PHYSICIAN Procedure: MR head/brain wo/w con Examination: MR head/brain wo/w con; [id number] Technique: Multiplanar and multisequence MR images of the brain were obtained both before and after the administration of IV contrast. Comparison: CT of the head 07/25/2022 and brain MRI 03/14/2021. Clinical Statement: rule out posterior fossa lesion, cholesteatoma Findings: Cerebellopontine angle/internal auditory canals: No mass or abnormal enhancement. Normal symmetric fluid signal within the labyrinth bilaterally. Cranial nerves VII/VIII: Normal course and caliber. Ebony: Mild multifocal FLAIR signal hyperintensity probably in the left ebony, similar. Parenchyma: -Mild multifocal and bilateral periventricular white matter FLAIR signal hyperintensities, overall similar and nonspecific though commonly seen in the setting of chronic microvascular ischemic disease. -No midline shift or mass effect. Basilar cisterns are patent. -Major vascular flow voids are patent. No restricted diffusion to indicate acute infarct. -Normal parenchymal FLAIR signal. -No susceptibility artifact to indicate hemosiderin deposition. -No enhancing parenchymal mass. Extra-axial spaces: No extra-axial hemorrhage or fluid collection. Ventricles: Normal in size and symmetric. Paranasal Sinuses: Clear. Mastoid air cells: -Status post right mastoidectomy. Overall appearance and signal characteristics are similar compared with 03/14/2021. -The left mastoid air cells are clear. Orbits: Normal MR/MR head/brain wo/w con Impression: 1. Status post right mastoidectomy. Overall appearance and signal characteristics are similar compared with 03/14/2021. No discrete abnormal enhancement or new/enlarging mass demonstrated. 2. Mild multifocal partial hyperintensity within the periventricular white matter and in the ebony, similar compared with 2020 and likely the sequela of chronic microvascular ischemic disease. Electronically authenticated by: FARHEEN OSBORN Date: 05/01/2024 14:23
[2024-04-28 12:39] LABS: Estimated GFR (African America >60 (>=60); Estimated GFR (Non-African Ame >60 (>=60)
== END 2024-04-28 12:19 | disposition home or self-care (01) ==
LOC: LAB 12:18
PROVIDERS: PCP Family Medicine
DX: D49.6 Neoplasm of unspecified behavior of brain (principal)
CPT/HCPCS: 36415; 70553; 82565; 84520; A9575

== ENCOUNTER 2024-05-15 12:44 | Outpatient (OUT) | payer MEDICARE, SELFPAY ==
--- NOTE | 2024-05-15 12:51 | XR_ITS ---
[facility] [place] [id number] Patient Name: EDITH KHOURY MRN: [id number] date: 1950 Sex: F Assigned Patient Location: [facility] Current Patient Location: [facility] Accession/Order Number: [id number] Exam Date: 05/15/2024 12:55 Report Date: 05/15/2024 13:21 At the request of: MATT SHEIKH Procedure: XR finger RT min 2V PROCEDURE: XR finger RT min 2V COMPARISON: None. HISTORY: Middle finger right hand pain and swelling M79.644 FINDINGS: BONES:No acute fracture or dislocation. Degenerative change of the distal interphalangeal joint with joint space narrowing and marginal osteophyte formation SOFT TISSUES:Negative. No visible soft tissue swelling. EFFUSION:None visible. OTHER: Negative. XR/XR finger RT min 2V IMPRESSION: Third distal interphalangeal joint osteoarthritis Electronically authenticated by: MARJORIE SUTTON Date: 05/15/2024 13:21
== END 2024-05-15 12:45 | disposition home or self-care (01) ==
LOC: RAD 12:46
PROVIDERS: PCP Family Medicine; Visit Provider Family Medicine
DX: M79.644 Pain in right finger(s) (principal)
CPT/HCPCS: 73140

== ENCOUNTER 2024-07-18 13:02 | Outpatient (OUT) | payer MEDICARE, SELFPAY ==
[2024-07-18 14:00] LABS: Estimated Average Glucose 143 mg/dL; Glycohemoglobin A1C 6.6 % (4.5-6.2)
== END 2024-07-18 13:03 | disposition home or self-care (01) ==
LOC: LAB 13:05
PROVIDERS: PCP Family Medicine; Visit Provider Family Medicine
DX: E11.9 Type 2 diabetes mellitus without complications (principal)
CPT/HCPCS: 36415; 83036

== ENCOUNTER 2024-08-11 12:32 | Emergency (ER) | payer MEDICARE, SELFPAY ==
[2024-08-11 12:35] VITALS: BP 153/98; PULSE 74; TEMP 36.7; O2SAT 99; BMI 34.4
--- NOTE | 2024-08-11 12:49 | PC.NURSE ---
no injury, no bruising and h/o chronic back pain
[2024-08-11] MEDS: KETOROLAC TROMETHAMINE 60 MG/2 ML VIAL IM (12:57)
--- NOTE | 2024-08-11 13:09 | ED.BACK1 ---
HPI HPI - Back Pain/Injury General Chief Complaint: Back Pain/Injury Stated Complaint: LOWER BACK PAIN Time Seen by Provider: 08/11/24 12:35 Source: patient Mode of arrival: walk-in History of Present Illness HPI Narrative: 74-year-old female presents to the emergency department for lower back pain. Its mostly on the right and this is an ongoing issue for her. She has been in pain management previously. No new injury and no dysuria or hematuria and the pain does not seem to radiate. No weakness or numbness. The pain is moderate to severe. Related Data Home Medications ?Medication ?Instructions ?Recorded ?Confirmed albuterol sulfate 90 mcg/actuation 2 puff inhalation DAILY PRN 01/01/24 01/01/24 aerosol inhaler shortness of breath or wheezing amlodipine 2.5 mg tablet 2.5 mg PO DAILY 01/01/24 01/01/24 aspirin 81 mg tablet,delayed 81 mg PO DAILY 01/01/24 01/01/24 release (Adult Aspirin Regimen) atorvastatin 10 mg tablet 10 mg PO DAILY 01/01/24 01/01/24 benzonatate 100 mg capsule 100 mg PO TID PRN cough 01/01/24 01/01/24 doxycycline monohydrate 100 mg 100 mg PO DAILY 01/01/24 01/01/24 capsule fluticasone 250 mcg-salmeterol 50 1 inh inhalation Q12H 01/01/24 01/01/24 mcg/dose blistr powdr for inhalation levothyroxine 100 mcg tablet 100 mcg PO DAILY 01/01/24 01/01/24 (Synthroid) loratadine 10 mg tablet 10 mg PO DAILY 01/01/24 01/01/24 metformin 500 mg tablet 500 mg PO DAILY 01/01/24 01/01/24 mometasone 50 mcg/actuation nasal 1 spray intranasal PRN allergy 01/01/24 spray symptoms pantoprazole 40 mg tablet,delayed 40 mg PO DAILY 01/01/24 01/01/24 release ramipril 10 mg capsule 10 mg PO DAILY 01/01/24 01/01/24 Previous Rx's ?Medication ?Instructions ?Recorded methocarbamol 500 mg tablet 500 mg PO Q8H #20 tabs 07/20/23 tramadol 50 mg tablet 50 mg PO Q4H PRN pain #15 tabs 07/20/23 meloxicam 7.5 mg tablet 7.5 mg PO DAILY PRN pain #10 tabs 07/22/23 clindamycin HCl 300 mg capsule 300 mg PO Q8H 7 days #21 caps 01/01/24 meloxicam 7.5 mg tablet 7.5 mg PO DAILY PRN pain #10 tabs 01/01/24 etodolac 300 mg capsule 300 mg PO Q8H PRN pain #20 caps 08/11/24 Allergies Allergy/AdvReac Type Severity Reaction Status Date / Time azithromycin Allergy Mild Hives Verified 06/18/23 23:25 [From Zithromax Z-Rk] cetirizine [From Zyrtec] Allergy Mild Hypertensio Verified 06/18/23 23:25 n ciprofloxacin [From Cipro] Allergy Mild Abdominal Verified 06/18/23 23:25 Pain Sulfa (Sulfonamide Allergy Mild Abdominal Verified 06/18/23 23:25 Antibiotics) Pain sulfamethoxazole Allergy Mild Nausea Verified 06/18/23 23:25 [From Bactrim] trimethoprim [From Bactrim] Allergy Mild Nausea Verified 06/18/23 23:25 Penicillins Allergy Hives Verified 06/18/23 23:25 morphine AdvReac Severe Palpitation Verified 06/18/23 23:25 s Opioid HPI Opioid Management Most Recent Opioid Data: Last Pain Scale 6 08/11/24 12:57 Last MAR Pain Assessment 08/11/24 12:57 Review of Systems ROS Narrative A ten point review of systems is negative except as noted above. PFSH PFSH Social History Smoking status: Never smoker Exam Narrative Exam Narrative: Nurses note and vital signs reviewed and patient is not hypoxic. General: The patient appears in no apparent distress. Skin: Warm, dry, no pallor noted. There is no rash noted. Head: Normocephalic, atraumatic Eye: Normal conjunctiva, no drainage Ears, Nose, Mouth, and Throat: oral mucosa is moist. Nares patent. Cardiovascular: Regular Rate and Rhythm Respiratory: Patient is in no distress, no accessory muscle use, lungs are clear to auscultation, no wheezing, rales or rhonchi Back: non-tender, no bruise or rash or focal area of tenderness to palpation. GI: Soft and nontender Musculoskeletal: The patient has no evidence of calf tenderness, no pitting edema, symmetrical pulses noted bilaterally Neurological: Awake and alert. Motor strength intact in her lower extremities Psychiatric: Cooperative Constitutional Vital Signs, click to edit/add: Last Vital Signs Temp 98.1 F 08/11/24 12:35 Pulse 74 08/11/24 12:35 Resp 18 08/11/24 12:35 BP 153/98 H 08/11/24 12:35 Pulse Ox 99 08/11/24 12:35 O2 Del Method Room Air 08/11/24 12:35 Course Vital Signs Vital signs: Vital Signs Temperature 98.1 F 08/11/24 12:35 Pulse Rate 74 08/11/24 12:35 Respiratory Rate 18 08/11/24 12:35 Blood Pressure 153/98 H 08/11/24 12:35 Pulse Oximetry 99 08/11/24 12:35 Oxygen Delivery Method Room Air 08/11/24 12:35 Temperature 98.1 F 08/11/24 12:35 Pulse Rate 74 08/11/24 12:35 Respiratory Rate 18 08/11/24 12:35 Blood Pressure 153/98 H 08/11/24 12:35 Pulse Oximetry 99 08/11/24 12:35 Oxygen Delivery Method Room Air 08/11/24 12:35 MDM - Back Pain/Injury MDM Narrative Medical decision making narrative: She was given IM Toradol and prescribed etodolac and she will follow-up with her doctor. She was also recommended pain management and was given information. Treatment diagnosis and follow-up were discussed with the patient. Differential Diagnosis Differential diagnosis: Likely lumbar radiculopathy, sciatica and strain of lumbar region Discharge Plan Discharge Chief Complaint: Back Pain/Injury Clinical Impression: Low back pain Patient Disposition: Home, Self-Care Time of Disposition Decision: 13:08 Condition: Good Mode of Transportation: Private Vehicle Prescriptions / Home Meds: New etodolac 300 mg capsule 300 mg PO Q8H PRN (Reason: pain) Qty: 20 0RF No Action methocarbamol 500 mg tablet 500 mg PO Q8H Qty: 20 0RF tramadol 50 mg tablet 50 mg PO Q4H PRN (Reason: pain) Qty: 15 0RF meloxicam 7.5 mg tablet 7.5 mg PO DAILY PRN (Reason: pain ) Qty: 10 0RF amlodipine 2.5 mg tablet 2.5 mg PO DAILY aspirin [Adult Aspirin Regimen] 81 mg tablet,delayed release (DR/EC) 81 mg PO DAILY atorvastatin 10 mg tablet 10 mg PO DAILY benzonatate 100 mg capsule 100 mg PO TID PRN (Reason: cough) doxycycline monohydrate 100 mg capsule 100 mg PO DAILY levothyroxine [Synthroid] 100 mcg tablet 100 mcg PO DAILY loratadine 10 mg tablet 10 mg PO DAILY fluticasone propion-salmeterol 250-50 mcg/dose blister with device 1 inh INHALATION Q12H metformin 500 mg tablet 500 mg PO DAILY pantoprazole 40 mg tablet,delayed release (DR/EC) 40 mg PO DAILY ramipril 10 mg capsule 10 mg PO DAILY albuterol sulfate 90 mcg/actuation HFA aerosol inhaler 2 puff INHALATION DAILY PRN (Reason: shortness of breath or wheezing) mometasone 50 mcg/actuation spray,non-aerosol 1 spray INTRANASAL PRN (Reason: allergy symptoms) clindamycin HCl 300 mg capsule 300 mg PO Q8H 7 Days Qty: 21 0RF meloxicam 7.5 mg tablet 7.5 mg PO DAILY PRN (Reason: pain ) Qty: 10 0RF Print Language: Faroese Instructions: Acute Low Back Pain (ED) Additional Instructions: Do not take meloxicam while on etodolac. Referrals: MATT SHEIKH [Primary Care Provider] - 1 week
[2024-08-11 13:16] VITALS: BP 154/79; PULSE 69; O2SAT 98
== END 2024-08-11 13:27 | disposition home or self-care (01) ==
PROVIDERS: Emergency Provider Emergency Medicine; PCP Family Medicine
DX: M54.50 Low back pain, unspecified (principal)
CPT/HCPCS: 96372; 99284; J1885

== ENCOUNTER 2024-09-29 17:21 | Inpatient (IN) | payer MEDICARE, SELFPAY ==
--- OUTSIDE RECORDS SUMMARY | 2024-09-29 18:01 | XMS_ITS | CCD ---
Author Organization [facility] Care Team Providers Care Medical Diagnostic Radiographer Name Role Phone Smith Sheikh Primary Care Provider Unavailable Unavailable Smith Sheikh MD Primary Care Provi israel Smith Sheikh MD Primary Care Provider Ava Salvador Unavailable Adilia Buck Unavailable Smith Sheikh MD Primary Care Provider Smith Sheikh MD Primary Care Provi israel Alexandre Frazier Attending Unavailable Alexandre Frazier Ad[facility] UnavailCORBY Sánchez Attending Unavailable CORBY YANEZ Admitting [facility] Unavailable ALEX HUERTA Consulting Unavailable CORBY YANEZ Consulting Unavailable [facility] Primary Care Unavailable LAKSHMIPATHY ., NARENDRANATH Attending Valery vailable LAKSHMIPATHY ., NARENDRANATH Admitting Valery vailable LAKSHMIPATHY ., NARENDRANATH Consulting Valery vailable ARCINIEGA ., DR RONY Reinoso Attending Unavailable [facility] Primary Care Unavailable PAVITHRA .GOGO Consulting Unavailable SUZE ., DR RONY Reinoso Admitting Unavailable LAKSHMIPATHY ., NARENDRANATH Consulting Valery vailable ARCINIEGA ., DR RONY Reinoso Consulting Unavailable [facility] Primary Care Unavailable ARCINIEGA ., DR RONY Reinoso Admitting Unavailable ARCINIEGA ., DR RONY Reinoso Attending Unavailable ARSHAD . GOGO Consulting Unavailable LAKSHMIPATHY ., NARENDRANATH Attending Valery vailable LAKSHMIPATHY ., NARENDRANATH Admitting Valery vailable [facility], SMITH Primary Care Unavailable SUZE ., DR RONY Reinoso Admitting Unavailable ARSHAD ., GOGO Consulting Unavailable [facility], SMITH Primary Care Unavailable ARCINIEGA ., DR RONY Reinoso Attending Unavailable ARCINIEGA ., DR RONY Reinoso Admitting Unavailable ARSHAD ., GOGO Consulting Unavailable RAGOTHAMAN, SMITH Primary Care Unavailable ARICNIEGA ., DR RONY Reinoso Attending Unavailable [facility], SMITH Primary Care Unavailable LAKSHMIPATHY ., NARENDRANATH Admitting Valery vailable LAKSHMIPATHY ., NARENDRANATH Attending Valery vailable LAKSHMIPATHY ., NARENDRANATH Consulting Valery vailable [facility]OTHAM[facility], SMITH Primary Care Unavailable [facility], SMITH Attending Unavailable [facility], SMITH Admitting Unavailable MISC, DR BRANNON Consulting Unavailable [facility]AGOTH[facility], SMITH Consulting Unavailable [facility]OTH[facility], SMITH Primary Care Unavailable NADHOMERO, DR MARLA Puente Consulting Unavailable NADERER, DR MARLA Puente Attending Unavailable NADERER, DR MARLA Puente Admitting Unavailable TREVON NAGY Consulting Unavailable HARIS OSUNA Consulting Unavailable GABRIELA MITTAL Consulting Unavailable EMETERIO ., CORBY Consulting Unavailable EMETERIO ., CORBY Attending Unavailable RAGOTHAM[facility], SMITH Primary Care Unavailable EMETERIO ., CORBY Admitting Unavailable ASTRID RODRIGUEZ Consulting Unavaila BILL Vivar Consulting Unavailable Courtney Perez [facility] GU[facility]LE Primary Care Unava ilable CONCEPCION MOORE Referring Unavailable BOBBI NUNEZ Referring Unavailable RAGOTHAMAN, SMITH M Primary Care Unavailabl e FABI ANTONY Referring Unavailable RAGOTHAMAN, SMITH M Primary Care Unavailabl e AGUILAR, SMITH M Primary Care Unavailabl e JIGAR SHEIKHNA M Attending Unavailabl e RAGOTHAMAN, SMITH M Referring Unavailabl e Tayla Torres Unavailable Smith Sheikh MD Primary Care Provider Smith Sheikh MD Primary Care Provi israel LICONA, ABDI Referring Unavailable RAGOTHAMAN, SMITH M Primary Care Unavailabl e RAGOTHAMAN, SMITH M Primary Care Unavailabl e LICONA, ABDI Referring Unavailable RAGOTHAMAN, SMITH M Primary Care Unavailabl e LICONA, ABDI Referring Unavailable LICONA, ABDI Referring Unavailable RAGOTHAMAN, SMITH M Primary Care Unavailabl e LICONA, ABDI Referring Unavailable RAGOTHAMAN, SMITH M Primary Care Unavailabl e LICONA, ABDI Referring Unavailable RAGOTHAMAN, SMITH M Primary Care Unavailabl e LICONA, ABDI Referring Unavailable RAGOTHAMAN, SMITH M Primary Care Unavailabl e LICONA, ABDI Referring Unavailable RAGOTHAMAN, SMITH M Primary Care Unavailabl e LICONA, ABDI Referring Unavailable RAGOTHAMAN, SMITH M Primary Care Unavailabl e LICONA, ABDI Referring Unavailable RAGOTHAMAN, SMITH M Primary Care Unavailabl e RAGOTHAMAN, SMITH M Primary Care Unavailabl e MARJORIE SYLVESTER Attending Unavailable FAUSTO SHIPLEY Admitting Unavailable [facility] Consulting Unavailable TERESA WILDER Consulting Unavailable MARJORIE SYLVESTER Attending Unavailable MARJORIE SYLVESTER Referring Unavailable RAGOTHAMAN, SMITH M Primary Care Unavailabl e LICONA, ABDI Referring Unavailable RAGOTHAMAN, SMITH M Primary Care Unavailabl e ATUL FRAZIER Attending Unavailable RAGOTHAMAN, SMITH M Primary Care Unavailabl e RAGOTHAMAN, SMITH GUILLE Primary Care Unava ilable SELF Referring Unavailable AVA DAMON Attending Unavailable AVA DAMON Referring Unavailable AVA DAMON Attending [facility] GUILLE Primary Care Unava ilable Allergies Allergy Classification Reported Allergen(s) Allergy Type Date of Onset Reaction(s) Facility (20 sources) Cetirizine; Translations: [CETIRIZINE HCL] Drug Allergy 12-20-19 09 [facility] [employer] Phone: (20 sources) Ciprofloxacin; Translations: [Ciprofloxacin HCl TABS] Drug Allergy 05-19-20 13 Unknown [facility] [employer] Phone: (20 sources) Morphine; Translations: [morphine] Drug Allergy 12-20-19 09 chest hurting and breathing issues [employer] Phone: (10 sources) Penicillins; Translations: [PENICILLINS] Propensity to adverse reactions to drug 12-20-19 09 [employer] Phone: (20 sources) Sulfamethoxazole / Trimethoprim; Translations: [SULFAMETHOXAZOLE-T RIMETHOPRIM] Drug Allergy 12-20-19 09 Nausea And Vomiting [employer] Phone: (6 sources) traMADol Drug Allergy 02-27-20 21 Other (See Comments) [employer] Phone: (5 sources) Cetirizine; Translations: [Cetirizine HCl TABS] [facility] [employer] [facility] Work Phone: (5 sources) Penicillins; Translations: [Penicillins] Allergy to drug (finding) [facility] [employer] DO Work Phone: (9 sources) Sulfamethoxazole / Trimethoprim; Translations: [Bactrim TABS] Drug Allergy stomach pain [facility] [employer] DO Work Phone: (5 sources) Sulfonamides (Antibiotic); Translations: [Sulfa Drugs] Allergy to drug (finding) [facility] [employer] DO Work Phone: (14 sources) Ibuprofen; Translations: [IBUPROFEN] Drug Allergy 12-07-19 18 Unknown [facility] (2 sources) Penicillins Propensity to adverse reactions 12-20-19 09 [facility] (4 sources) Cetirizine Drug Allergy blood pressure elevated [employer] Other (4 sources) Penicillin G Benzathine Drug allergy rash [employer] Other (2 sources) sulfaSALAzine Drug Allergy Unknown [employer] Other (13 sources) Penicillins Propensity to adverse reactions to drug 12-20-19 09 [facility] [employer] Phone: (3 sources) Cetirizine; Translations: [CETIRIZINE] Drug Allergy 12-20-19 [facility] Repository (1 source) Ciprofloxacin Drug Allergy 12-01-19 [facility] (1 source) Morphine Drug Allergy 12-01-19 [facility] (1 source) Penicillins Drug allergy (disorder) 12-01-19 [facility] (1 source) Sulfamethoxazole Drug Allergy 12-01-19 [facility] (2 sources) Sulfonamides (Antibiotic); Translations: [SULFA (SULFONAMIDE ANTIBIOTICS)] Drug allergy (disorder) 12-01-19 [facility] Repository (1 source) Trimethoprim Drug Allergy 12-01-19 [facility] Repository (1 source) Cetirizine Drug Allergy 08-11-20 15 [facility] Repository (1 source) Ciprofloxacin Drug Allergy 08-11-20 15 [facility] Repository (2 sources) Morphine Drug Allergy 05-05-20 15 [facility] Rep[facility] (2 sources) Penicillins Drug allergy (disorder) 04-28-20 15 [facility] Rep[facility] (2 sources) Sulfamethoxazole / Trimethoprim Drug Allergy 05-05-20 15 [facility] Repository (1 source) Sulfonamides (Antibiotic) Drug allergy (disorder) 08-11-20 15 [facility] Repository (2 sources) Substance with sulfonamide structure and antibacterial mechanism of action (substance) Drug allergy Unknown [employer] Other Medications Current Medications Medication Drug Class(es) Dates Sig (Normalized) Sig (Original) acetaminophen 300 mg / codeine phosphate 30 mg oral tablet (15 sources) Opioid Agonist Start: 09-16-2020 acetaminophen-cod eine (TYLENOL-COD #3) 300-30 mg per tablet 10/13/2020 Active Advair Diskus 250-50 MCG/DOSE (4 sources) take 1 puff(s) by inhalation twice daily Advair Diskus 250-50 MCG/DOSE 1 puff Inhalation Twice a day Active [id number] actuat albuterol 0.09 mg/actuat metered dose inhaler (20 sources) beta2-Adrenergic Agonist Start: 12-28-2023 take 2 puff(s) by inhalation every four to six hours as needed Albuterol Sulfate HFA 108 (90 Base) MCG/ACT 2 puffs as needed Inhalation every 4-6 hours for 14 days Dec, Active Start: 09-22-2023 take 2 puff(s) by in halation four times daily as needed Albuterol Sulfate HFA 108 (90 Base) MCG/ACT 2 puffs Inhalation 4 times a day prn Sep, Not-Taking/PRN Start: 01-28-2023 take 2 puff(s) by in halation every six hours as needed for wheezing albuterol sulfate HFA (PROVENTIL;VENTOLIN;PROAIR) 108 (90 Base) MCG/ACT inhaler Indications: Chest discomfort Inhale 2 puffs into the lungs every 6 hours as needed for Wheezing 1 each 3 01/28/2023 Active Start: 04-06-2022 take 2 puff(s) by in halation every four hours as needed Albuterol Sulfate HFA 108 (90 Base) MCG/ACT 2 puffs as needed Inhalation every 4 hrs March, Active Start: 02-05-2021 take 2 puff(s) by in halation every six hours as needed for wheezing albuterol sulfate HFA 108 (90 Base) MCG/ACT inhaler Inhale 2 puffs into the lungs every 6 hours as needed for Wheezing 1 Inhaler 3 02/05/2021 Active Start: 02-05-2021 ProAir HFA 108 (90 Base) MCG/ACT Inhalation Aerosol Solution Quantity: 8 Refills: 0 Ordered: 29-May-2021 DO Start : 05-Feb-2021 Complete Start: 09-26-2016 PROAIR HFA 108 (90 BASE) MCG/ACT inhaler albuterol sulfat e (PROAIR DIGIHALER) 90 mcg/actuation aebs Inhale as instructed. Active albuterol sulfat e (PROAIR DIGIHALER) 90 mcg/actuation aebs Inhale as instructed. 0 Active ProAir HFA Activ e take 1-2 puff(s) by inhalation every four to six hours as needed Albuterol 90 MCG/ACT AERS INHALE 1 TO 2 PUFFS EVERY 4 TO 6 HOURS NEEDED AND DIRECTED. Quantity: 0 Refills: 0 Ordered: 02-Sep-2021 DO Active Comment on above: Inhale as instructed . albuterol 0.833 mg/ml / ipratropium bromide 0.167 mg/ml inhalation solution (20 sources) Anticholinergic, beta2-Adrenergic Agonist Start: 9 End: 1 take 3 mL by inhalation every four hours ipratropium-albute rol (DUONEB) 0.5 mg-3 mg(2.5 mg base)/3 mL nebu Inhale 3 mL as instructed every 4 hours. 08/04/2019 Active take 1 [IU] by inhal ation four times daily Ipratropium-Albuterol 0.5-2.5 (3) MG/3ML Inhalation Solution USE 1 UNIT DOSE IN NEBULIZER 4 TIMES DAILY. Quantity: 0 Refills: 0 Ordered: 02-Sep-2021 DO Active Comment on above: Inhale 3 mL as instr ucted every 4 hours. albuterol sulfate HFA 108 (90 Base) MCG/ACT inhaler (4 sources) Start: 02-06-20 21 take 2 puff(s) by inhalation every six hours as needed for wheezing albuterol sulfate HFA 108 (90 Base) MCG/ACT inhaler Inhale 2 puffs into the lungs every 6 hours as needed for Wheezing 1 Inhaler 3 02/05/2021 Active amLODIPine 2.5 mg oral tablet (20 sources) Dihydropyridine Calcium Channel [place] Start: 08-11-20 21 amLODIPine Besylate 2.5 MG Oral Tablet Quantity: 90 Refills: 0 Ordered: 11-Aug-2021 DO Start : 11-Aug-2021 Complete Start: 08-09-2020 amLODIPine (NO RVASC) 2.5 MG tablet TAKE 1 TABLET DAILY 90 tablet 3 10/07/2023 Active Comment on above: Take 2.5 mg by mouth once daily. TAKE 1 TABLET DAILY Amlodipine & Diet Manage Prod 2.5 MG (4 sources) Amlodipine & t Manage Prod 2.5 MG as directed Orally Active Aspir-81 81 MG (4 sources) take 1 tablet by mouth once daily Aspir-81 81 MG 1 tablet Orally Once a day for 30 day(s) Active Aspirin (20 sources) Platelet Aggregation Inhibitor, Nonsteroidal Anti-inflammatory Drug aspirin, enteric coated (ASPIRIN, ENTERIC COATED) 81 mg EC tablet Take 81 mg by mouth. Active BABY ASPIRIN ORA L Take by mouth. Active aspirin 81 MG ch ewable tablet Take by mouth 0 Active BABY ASPIRIN ORA L Take by mouth. 0 Active Comment on above: Take by mouth. Take 81 mg by mouth. atorvastatin 10 mg oral tablet (20 sources) HMG-CoA Reductase Inhibitor Start: 08-04-2021 Atorvastatin Calcium 10 MG Oral Tablet Quantity: 90 Refills: 0 Ordered: 04-Aug-2021 DO Start : 04-Aug-2021 Complete Start: 11-07-2020 atorvastatin ( LIPITOR) 10 MG tablet TAKE 1 TABLET DAILY 90 tablet 3 10/25/2023 Active Comment on above: Take 10 mg by mouth once daily. TAKE 1 TABLET DAILY azithromycin 250 mg oral tablet (2 sources) Macrolide Antimicrobial Start: 2022 azithromycin (ZITHROMAX) 250 MG tablet Indications: Cough 500mg on day 1 followed by 250mg on days 2 - 5 6 tablet 0 2022 Active baclofen 10 mg oral tablet (15 sources) gamma-Aminobutyric Acid-ergic Agonist Start: 05-02-2021 baclofen (LIORESAL) 10 MG tablet Take 10 mg by mouth 0 05/02/2021 Active Start: 03-10-2021 Baclofen 10 MG Oral Tablet Quantity: 30 Refills: 0 Ordered: 02-May-2021 DO Start : 10-Mar-2021 Complete take 5 mL by mouth o nce daily at mealtime as needed Baclofen 10 MG 5 mL with food or milk as needed Orally Once a day Not-Taking/PRN benoxinate hydrochloride 4 mg/ml / fluorescein sodium 3 mg/ml ophthalmic solution (3 sources) Diagnostic Dye Start: 08-29-2024 End: 08-29-2024 fluorescein-benoxinate 0.3-0.4 % 1 Drop (FLURESS) Start: 03-13-2024 End: 03-13-2024 fluorescein-benoxinate 0.3-0 .4 % 1 Drop (FLURESS) Start: 02-19-2022 End: 02-19-2022 fluorescein-benoxinate 0.25- 0.4 % 1 Drop (FLURESS) benzonatate 100 mg oral capsule (3 sources) Non-narcotic Antitussive Start: 12-28-2023 take 1 capsule by mouth three times daily as needed Tessalon Perles 100 MG 1 capsule as needed Orally Three times a day for 7 days Dec, Active Start: 06-17-2023 take 1 capsule by mo [facility] three times daily as needed for cough Benzonatate 200 MG 1 capsule Orally Three times a day prn cough for 10 days Apr, Not-Taking/PRN biotin 1 mg oral capsule (13 sources) biotin 1 mg cap Take by mouth. Active Biotin 64602 MCG TABS Take by mouth 0 Active Comment on above: Take by mouth. Vjlplummd-ZD-Utyywdmenhu en (CORICIDIN D COLD/FLU/SINUS PO) (2 sources) Boanbtvmi-IG-Lep ta minophen (CORICIDIN D COLD/FLU/SINUS PO) Take by mouth 0 Active ubidecarenone 200 mg oral capsule (20 sources) Start: 07-17-2021 take 1 capsule by mouth once daily Coenzyme Q10 200 mg cap Take 1 capsule by mouth once daily. 07/17/2021 Active Start: 07-17-2021 CoQ10 200 MG O ral Capsule Quantity: 30 Refills: 0 Ordered: 16-Aug-2021 DO Start : 17-Jul-2021 Complete Co Q-10 200 MG O ral Capsule TAKE DIRECTED. Quantity: 0 Refills: 0 Ordered: 02-Sep-2021 DO Active take 1 capsule by [facility] once daily, then take 10 capsules by mouth once, then take 10 capsules by mouth Coenzyme Q10 (CO Q 10) 10 MG CAPS Take 10 mg by mouth daily 0 Active Comment on above: Take 1 capsule by [facility] once daily. COMP-AIR NEBULIZER COMPRESSOR (3 sources) Start: 03-07-2024 COMP-AIR NEBULIZER COMPRESSOR 03/07/2024 Active Start: 03-07-2024 COMP-AIR NEBUL IZER COMPRESSOR cyanocobalamin, vitamin B-12 , (B-12 DOTS ORAL) (11 sources) cyanocobalamin, vitamin B-12, (B-12 DOTS ORAL) Take by mouth. Active cyanocobalamin, vitamin B-12, (B-12 DOTS ORAL) Take by mouth. 0 Active Comment on above: Take by mouth. desloratadine 5 mg oral tablet (11 sources) Histamine-1 Receptor Antagonist Start: 9 desloratadine(C LARINEX 5 MG TAB) Take by mouth. 0 04/05/2009 Active Comment on above: Take by mouth. dexamethasone 1 mg/ml / neomycin 3.5 mg/ml / polymyxin b [id number] unt/ml ophthalmic suspension (4 sources) Aminoglycoside Antibacterial, Polymyxin-class Antibacterial, Corticosteroid Start: 4 take 1 drop(s) into the eye(s) three times daily NEOMYCIN-POLYMY APOLLO-DEXAMETH 3.5 MG/ML-10,000 UNIT/ML-0.1% EYE DROPS Use 1 Drop in both eyes three times a day. 5 mL 08/29/2024 Active Start: 11-18-2020 Neomycin-Polym yxin-Dexameth 3.5-45074-5.1 Ophthalmic Ointment Quantity: 3 Refills: 0 Ordered: 18-Nov-2020 DO Start : 18-Nov-2020 Complete diclofenac potassium 50 mg oral tablet (11 sources) Nonsteroidal Anti-inflammatory Drug Start: 08-21-2020 diclofenac potassium (CATAFLAM) 50 mg tablet 08/21/2020 Active doxycycline monohydrate 100 mg oral capsule (6 sources) Tetracycline-class Drug Start: 12-28-2023 take 1 capsule by mouth every twelve hours Doxycycline Monohydrate 100 MG 1 capsule Orally every 12 hrs for 10 days Dec, Active Start: 09-22-2023 take 1 tablet by pauline th every twelve hours Doxycycline Hyclate 100 MG 1 tablet Orally Twice a day for 10 day(s) Sep, Not-Taking/PRN Start: 03-02-2021 Doxycycline Mo nohydrate 100 MG Oral Capsule Quantity: 20 Refills: 0 Ordered: 02-Mar-2021 DO Start : 02-Mar-2021 Complete esomeprazole 40 mg delayed release oral capsule (11 sources) Proton Pump Inhibitor take 1 capsule by mouth once daily, then take 6 capsules by mouth in the morning esomeprazole (NEXIUM) 40 mg capsule Take 40 mg by mouth DAILY (6 AM). Active Comment on above: Take 40 mg by mouth DAILY (6 AM). famotidine 20 mg oral tablet (2 sources) Histamine-2 Receptor Antagonist Start: 3 famotidine (PEPCID) 20 MG tablet ferrous sulfate 325 mg oral tablet (12 sources) Start: 1 take 1 tablet by mouth twice daily ferrous sulfate (IRON 325) 325 (65 Fe) MG tablet Take 1 tablet by mouth 2 times daily 90 tablet 1 09/01/2021 Active Start: 09-01-2021 Ferrous Sulfat e 325 (65 Fe) MG Oral Tablet Delayed Release Quantity: 90 Refills: 0 Ordered: 01-Sep-2021 DO Start : 01-Sep-2021 Complete Start: 03-17-2021 FeroSul 325 (6 5 Fe) MG Oral Tablet Quantity: 60 Refills: 0 Ordered: 17-Mar-2021 DO Start : 17-Mar-2021 Complete fexofenadine hydrochloride 180 mg oral tablet (13 sources) Histamine-1 Receptor Antagonist take 1 tablet by mouth once daily fexofenadine (DELMI) 180 mg tablet Take 180 mg by mouth once daily. Active Delmi Active Comment on above: Take 180 mg by mouth once daily. fluticasone propionate 0.05 mg/actuat metered dose nasal spray (7 sources) Corticosteroid Start: take 2 spray(s) nasal route once daily fluticasone (FLONASE) 50 MCG/ACT nasal spray USE 2 SPRAY(S) IN EACH NOSTRIL ONCE DAILY FOR 14 DAYS 16 g 1 02/14/2024 Active Start: 05-08-2023 take 2 spray(s) nasa l route once daily as needed Fluticasone Propionate 50 MCG/ACT 2 sprays Nasally Once a day for 14 day(s) Sep, Not-Taking/PRN Start: 05-08-2023 Fluticasone Pr opionate 50 MCG/ACT 2 sprays (1 spray in each nostril) Nasally Once a day for 14 days Apr, Not-Taking/PRN Start: 05-08-2023 Fluticasone Pr opionate 50 MCG/ACT 2 sprays (1 spray in each nostril) Nasally Once a day for 14 days Apr, Active Start: 06-23-2022 End: 06-23-2023 take 2 puff(s) by inhalation in the morning fluticasone (FLOVENT HFA) 110 MCG/ACT inhaler Inhale 2 puffs into the lungs in the morning and 2 puffs before bedtime. 12 g 3 06/23/2022 06/23/2023 Active 60 actuat fluticasone propionate 0.25 mg/actuat / salmeterol 0.05 mg/actuat dry powder inhaler (20 sources) Corticosteroid, beta2-Adrenergic Agonist Start: 04-09-2023 take 1 puff(s) by inhalation in the morning fluticasone-salmeterol (ADVAIR) 250-50 MCG/ACT AEPB diskus inhaler Inhale 1 puff into the lungs in the morning and 1 puff in the evening. 1 each 0 04/09/2023 Active Start: 12-04-2019 fluticasone-sa lmeterol (ADVAIR, WIXELA) 250-50 mcg/dose inhaler USE 1 INHALATION TWICE A DAY 12/04/2019 Active Start: 12-04-2019 fluticasone-sa lmeterol (ADVAIR, WIXELA) 250-50 mcg/dose inhaler USE 1 INHALATION TWICE A DAY 0 12/04/2019 Active Start: 12-04-2019 fluticasone-sa lmeterol (ADVAIR DISKUS) 250-50 mcg/dose USE 1 INHALATION TWICE A DAY 0 12/04/2019 Active Start: 12-04-2019 ADVAIR DISKUS 250-50 MCG/DOSE AEPB USE 1 INHALATION TWICE A DAY 180 each 3 02/10/2021 Active Start: 04-05-2009 fluticasone/sa lmeterol(ADVAIR DISKUS 250 MCG-50 MCG/DOSE FOR INHALATION) 0 04/05/2009 Active take 1 puff(s) by in halation every twelve hours Advair Diskus 250-50 MCG/DOSE Inhalation Aerosol Powder Breath Activated INHALE 1 PUFF EVERY 12 HOURS. Quantity: 0 Refills: 0 Ordered: 02-Sep-2021 DO Active Comment on above: USE 1 INHALATION TWI CE A DAY furosemide 20 mg oral tablet (12 sources) Loop Diuretic Start: 05-06-2020 take 1 tablet by mouth once daily furosemide (LASIX) 20 mg tablet Take 20 mg by mouth once daily. 05/06/2020 Active Start: 05-06-2020 End: 02-26-2021 take 1 tablet by mouth twice daily furosemide (LASIX) 20 MG tablet Take 1 tablet by mouth 2 times daily for 10 days 20 tablet 0 05/06/2020 02/26/2021 Discontinued (LIST CLEANUP) Comment on above: Take 20 mg by mouth once daily. ketotifen 0.25 mg/ml ophthalmic solution (4 sources) Histamine-1 Receptor Inhibitor Start: 05-08-2023 take 1 drop(s) into the eye(s) twice daily EQ EYE ITCH RELIEF 0.025 % ophthalmic solution INSTILL 1 DROP INTO AFFECTED EYE TWICE DAILY FOR 7 DAYS 0 05/08/2023 Active Start: 05-08-2023 take 1 drop(s) into the eye(s) twice daily Ketotifen Fumarate 0.025 % 1 drop into affected eye Ophthalmic Twice a day for 7 days Apr, Active levothyroxine sodium 0.1 mg oral tablet (20 sources) l-Thyroxine Start: 09-01-2021 Synthroid 100 MCG Oral Tablet Quantity: 90 Refills: 0 Ordered: 01-Sep-2021 DO Start : 01-Sep-2021 Complete Start: 08-09-2020 SYNTHROID 88 m cg tablet 08/09/2020 Active Start: 01-08-2014 levothyroxine (SYNTHROID) 100 mcg tablet 1 tab qd 09/16/2020 Active take 1 tablet by pauline th once daily in the morning Levothyroxine Sodium 100 MCG 1 tablet on an empty stomach in the morning Orally Once a day for 30 day(s) Active Comment on above: Take 1 tablet by pauline th once daily. 1 tab qd loratadine 10 mg oral tablet (7 sources) Start: 01-06-2024 take 1 tablet by mouth once loratadine (CLARITIN) 10 mg tablet Take 1 tablet by mouth every afternoon. 01/06/2024 Active Start: 05-08-2023 take 1 tablet by pauline th every twenty-four hours Loratadine 10 MG 1 tablet Orally Once a day for 15 days Apr, Not-Taking/PRN meloxicam 7.5 mg oral tablet (7 sources) Nonsteroidal Anti-inflammatory Drug Start: 07-22-2023 meloxicam (MOBIC) 7.5 mg tablet 02/16/2024 Active metFORMIN hydrochloride 500 mg oral tablet (20 sources) Biguanide Start: 05-29-2021 metFORMIN HCl - 500 MG Oral Tablet Quantity: 270 Refills: 0 Ordered: 29-May-2021 DO Start : 29-May-2021 Complete Start: 11-27-2019 metFORMIN (GLU COPHAGE) 500 mg tablet TAKE 2 TABLETS EVERY MORNING AND TAKE 1 TABLET EVERY EVENING 11/27/2019 Active Start: 04-05-2009 metformin hcl( GLUCOPHAGE 500 MG TAB) Take by mouth. 0 04/05/2009 Active metFORMIN (GLUCO PHAGE) 1,000 mg tablet Take 1,000 mg by mouth. Active Comment on above: as directed Take 1,000 mg by pauline th. TAKE 2 TABLETS EVERY MORNING AND TAKE 1 TABLET EVERY EVENING Take by mouth. methocarbamol 500 mg oral tablet (1 source) Muscle Relaxant Start: 11-10-2023 End: 02-08-2024 methocarbamol (ROBAXIN) 500 MG tablet Take 1 tablet by mouth in the morning and 1 tablet at noon and 1 tablet in the evening. 180 tablet 0 11/10/2023 02/08/2024 Active mometasone furoate 0.05 mg/actuat metered dose nasal spray (20 sources) Corticosteroid Start: 01-08-2021 Mometasone Furoate 50 MCG/ACT Nasal Suspension Quantity: 51 Refills: 0 Ordered: 08-Jan-2021 DO Start : 08-Jan-2021 Complete Start: 04-05-2009 mometasone (NA SONEX) 50 MCG/ACT nasal spray 2 sprays by Nasal route daily 1 each 0 04/13/2023 Active Start: 04-05-2009 mometasone fur oate(NASONEX 50 MCG/ACTUATION SPRAY) MV with Hnc-Ehigxzlk-Lolruh 0.4 mg-300 mcg- 250 mcg tab (7 sources) MV with Min-Lyco pene-Lutein 0.4 mg-300 mcg- 250 mcg tab Take by mouth. Active MV with Min-Lyco pene-Lutein 0.4 mg-300 mcg- 250 mcg tab Take by mouth. 0 Active Comment on above: Take by mouth. olopatadine 1 mg/ml ophthalmic solution (19 sources) Histamine-1 Receptor Inhibitor Start: 08-29-2024 olopatadine (PATADAY TWICE DAILY RELIEF) 0.1 % ophthalmic solution Use 1 Drop in both eyes two times a day. 5 mL 4 08/29/2024 Active Start: 12-10-2023 take 1 drop(s) into the eye(s) twice daily olopatadine (PATANOL) 0.1 % ophthalmic solution INSTILL ONE DROP TO BOTH EYES TWICE A DAY 5 mL 5 12/10/2023 Active Start: 04-19-2023 olopatadine (P ATANOL) 0.1 % ophthalmic solution Start: 03-10-2023 take 1 drop(s) into the eye(s) twice daily olopatadine (PATANOL) 0.1 % ophthalmic solution INSTILL ONE DROP TO BOTH EYES TWICE A DAY 5 mL 5 03/10/2023 Active Start: 07-31-2022 take 1 drop(s) into the eye(s) twice daily olopatadine (PATANOL) 0.1 % ophthalmic solution INSTILL ONE DROP TO BOTH EYES TWICE A DAY 5 mL 5 07/31/2022 Active Start: 12-04-2020 take 1 drop(s) into the eye(s) twice daily olopatadine (PATANOL) 0.1 % ophthalmic solution Use 1 Drop in both eyes twice daily. 5 mL 5 12/04/2020 Active Start: 12-04-2020 Olopatadine HC l - 0.1 % Ophthalmic Solution Quantity: 5 Refills: 0 Ordered: 14-May-2021 DO Start : 04-Dec-2020 Complete Comment on above: Use 1 Drop in both e yes twice daily. INSTILL ONE DROP TO BOTH EYES TWICE A DAY pantoprazole 40 mg delayed release oral tablet (20 sources) Proton Pump Inhibitor Start: 05-02-2021 Pantoprazole Sodium 40 MG Oral Tablet Delayed Release Quantity: 90 Refills: 0 Ordered: 26-Jun-2021 DO Start : 02-May-2021 Complete Start: 10-21-2020 take 1 tablet by pauline once daily pantoprazole DR (PROTONIX) 40 mg tablet Take 40 mg by mouth once daily. 10/21/2020 Active Pantoprazole Sod ium Active Comment on above: Take 40 mg by mouth once daily. Potassium Chloride (2 sources) Potassium Chlori de (KLOR-CON 10 PO) Take by mouth 0 Active Pravastatin (4 sources) HMG-CoA Reductase Inhibitor Pravastatin Sodium Active ramipril 10 mg oral capsule (20 sources) Angiotensin Converting Enzyme Inhibitor Start: 05-30-2021 Ramipril 10 MG Oral Capsule Quantity: 90 Refills: 0 Ordered: 17-Aug-2021 DO Start : 30-May-2021 Complete Start: 10-09-2020 ramipril (GORGE CE) 10 mg capsule TAKE 1 CAPSULE DAILY 10/09/2020 Active Start: 04-05-2009 ramipril(ALTAC E 10 MG TAB) Take by mouth. 0 04/05/2009 Active Comment on above: TAKE 1 CAPSULE DAILY Take by mouth. Respiratory Therapy Supplies (NEBULIZER/TUBING/PAULINE THPIECE) KIT (6 sources) Start: Respiratory Therapy Supplies (NEBULIZER/TUBING/PAULINE THPIECE) KIT 1 kit by Does not apply route 4 times daily 1 kit 0 05/28/2021 Active rosuvastatin calcium 20 mg oral tablet (11 sources) HMG-CoA Reductase Inhibitor Start: 4 take 1 tablet by mouth once daily at bedtime rosuvastatin (CRESTOR) 20 mg tablet Take 1 tablet by mouth daily at bedtime. 0 01/08/2014 Active Comment on above: Take 1 tablet by pauline th daily at bedtime. 3 ml sodium chloride 9 mg/ml injection (4 sources) Start: 0.9 % sodium chloride infusion Start: 03-07-2021 sodium chlorid e flush 0.9 % injection 10 mL sucralfate 1000 mg oral tablet (20 sources) Aluminum Complex Start: 01-13-2021 Sucralfate 1 GM Oral Tablet Quantity: 240 Refills: 0 Ordered: 13-Jan-2021 DO Start : 13-Jan-2021 Complete Start: 09-02-2020 End: 05-14-2022 take 1 tablet by mouth four times daily sucralfate (CARAFATE) 1 gram tablet Take 1 g by mouth four times daily. 09/02/2020 Active Sucralfate Activ e Comment on above: Take 1 g by mouth fo ur times daily. vitamin b12 0.1 mg oral tablet (2 sources) Vitamin B12 take 0.5 tablet by mouth once daily vitamin B-12 (CYANOCOBALAMIN) 100 MCG tablet Take 0.5 tablets by mouth daily 0 Active Completed/Discontinued Medications Medication Drug Class(es) Dates Sig (Normalized) Sig (Original) 8 hr acetaminophen 650 mg extended release oral tablet (20 sources) Start: 03-26-2021 Acetaminophen ER 650 MG Oral Tablet Extended Release Quantity: 20 Refills: 0 Ordered: 26-Mar-2021 DO Start : 26-Mar-2021 Complete acetaminophen (T YLENOL ORAL) Take 650 mg by mouth as needed. Active take 1 tablet by pauline th every six hours as needed for pain acetaminophen (TYLENOL) 500 MG tablet Take 1 tablet by mouth every 6 hours as needed for Pain 0 Active End: 12-04-2022 take 1 tablet by mouth twice daily acetaminophen (TYLENOL) 650 MG extended release tablet Take 650 mg by mouth 2 times daily 0 12/04/2022 Discontinued (LIST CLEANUP) Comment on above: Take 650 mg by mouth as needed. Acetaminophen Extra Strength CAPS (5 sources) Acetaminophen Ex tra Strength CAPS TAKE 2 CAPSULES 4 TIMES DAILY PRN Quantity: 0 Refills: 0 Ordered: 02-Sep-2021 DO Active [employer] Test (4 sources) Asc[employer]ia Autod[employer] c Test Not-Taking/PRN Asc[employer]ia Autodis c Test Not-Taking [employer] c Test Active bisacodyl 5 mg delayed release oral tablet (8 sources) Stimulant Laxative Start: 02-24-2021 Bisacodyl E C 5 MG Oral Tablet Delayed Release Quantity: 4 Refills: 0 Ordered: 24-Feb-2021 DO Start : 24-Feb-2021 Complete Start: 02-24-2021 End: 03-07-2021 bisacodyl (BISACODYL) 5 MG E C tablet Follow instructions provided given by the physician's office. 4 tablet 0 02/24/2021 03/07/2021 Discontinued (Therapy completed) 5 ml bupivacaine hydrochloride 5 mg/ml injection (1 source) Amide Local Anesthetic Start: 02-02-2024 End: 02-02-2024 BUPivacaine (PF) (MARCAINE) 0.5 % injection celecoxib 200 mg oral capsule (20 sources) Nonsteroidal Anti-inflammatory Drug Start: 07-06-2022 End: 12-04-2022 celecoxib (CELEBREX) 200 MG capsule TAKE 1 CAPSULE DAILY 90 capsule 0 07/06/2022 12/04/2022 Discontinued (LIST CLEANUP) Start: 04-07-2022 celecoxib (MANUEL EBREX) 200 MG capsule TAKE 1 CAPSULE DAILY 90 capsule 0 04/07/2022 Active Start: 02-05-2021 Celecoxib 200 MG Oral Capsule Quantity: 60 Refills: 0 Ordered: 11-Jul-2021 DO Start : 05-Feb-2021 Complete Start: 01-22-2021 Celecoxib 100 MG Oral Capsule Quantity: 90 Refills: 0 Ordered: 22-Jan-2021 DO Start : 22-Jan-2021 Complete Start: 10-05-2020 End: 04-22-2021 take 1 capsule by mouth once daily celecoxib (CELEBREX) 100 MG capsule Take 1 capsule by mouth daily 90 capsule 0 01/22/2021 04/22/2021 Active take 1 capsule by [facility] twice daily at mealtime CeleBREX 200 MG Oral Capsule TAKE 1 CAPSULE TWICE DAILY WITH FOOD. Quantity: 0 Refills: 0 Ordered: 02-Sep-2021 DO Active Comment on above: Take 100 mg by mouth . clindamycin 150 mg oral capsule (4 sources) Lincosamide Antibacterial Start: 03-26-2021 Clindamycin HCl - 150 MG Oral Capsule Quantity: 21 Refills: 0 Ordered: 26-Mar-2021 DO Start : 26-Mar-2021 Complete 2 ml fentaNYL 0.05 mg/ml injection (1 source) Opioid Agonist Start: 02-02-2024 End: 02-02-2024 fentaNYL (SUBLIMAZE) injection ibuprofen 600 mg oral tablet (4 sources) Nonsteroidal Anti-inflammatory Drug Start: 03-26-2021 Ibuprofen 600 MG Oral Tablet Quantity: 20 Refills: 0 Ordered: 26-Mar-2021 DO Start : 26-Mar-2021 Complete iohexol (OMNIPAQUE 180) injection (1 source) Start: 02-02-2024 End: 02-02-2024 iohexol (OMNIPAQUE 180) injection 10 ml lidocaine hydrochloride 10 mg/ml injection (2 sources) Antiarrhythmic, Amide Local Anesthetic Start: 02-02-2024 End: 02-02-2024 lidocaine PF 1 % injection Start: 03-07-2021 End: 03-07-2021 lidocaine PF 1 % injection 1 mL meclizine hydrochloride 25 m g oral tablet (4 sources) Antiemetic Start: 02-14-2021 Meclizine HCl - 25 MG Oral Tablet Quantity: 20 Refills: 0 Ordered: 15-Feb-2021 DO Start : 14-Feb-2021 Complete methylPREDNISolone 4 mg oral tablet (2 sources) Corticosteroid Start: 09-22-2023 Medrol 4 MG as directed Orally As Directed for 6 days Sep, Not-Taking/PRN Start: 04-06-2022 methylPREDNISo lone 4 MG as directed Orally Once a day for 6 days March, Active 2 ml midazolam 1 mg/ml injection (1 source) Benzodiazepine Start: 02-02-2024 End: 02-02-2024 midazolam PF (VERSED) injection moxifloxacin 5 mg/ml ophthalmic solution (4 sources) Quinolone Antimicrobial Start: 06-16-2021 Moxifloxacin HCl - 0.5 % Ophthalmic Solution Quantity: 3 Refills: 0 Ordered: 17-Jun-2021 DO Start : 16-Jun-2021 Complete MV with Pfb-Tbrlrsxe-Mqvqkp (CENTRUM SILVER) 0.4-300-250 mg-mcg-mcg tab (4 sources) MV with Pnl-Uobebkda-Ippehb (CENTRUM SILVER) 0.4-300-250 mg-mcg-mcg tab Take by mouth. 0 Active Comment on above: Take by mouth. Nasonex 50 MCG/ACT (2 sources) take 2 spray(s) nasal route once daily Nasonex 50 MCG/ACT 2 sprays in each nostril Nasally Once a day for 30 day(s) Not-Taking ondansetron 4 mg disintegrating oral tablet (4 sources) Serotonin-3 Receptor Antagonist Start: 02-14-2021 Ondansetron 4 MG Oral Tablet Disintegrating Quantity: 10 Refills: 0 Ordered: 15-Feb-2021 DO Start : 14-Feb-2021 Complete Oxygen (5 sources) Oxygen 2L AT NIG HT Quantity: 0 Refills: 0 Ordered: 02-Sep-2021 DO Active phenylephrine hydrochloride 25 mg/ml ophthalmic solution (2 sources) alpha-1 Adrenergic Agonist Start: 03-13-2024 End: 03-13-2024 PHENYLephrine 2.5 % 1 Drop (AK-DILATE, THERESA-SYNEPHRINE) Start: 02-19-2022 End: 02-19-2022 PHENYLephrine 2.5 % 1 Drop ( AK-DILATE, THERESA-SYNEPHRINE) polyethylene glycol 3350 47510 mg powder for oral solution (8 sources) Osmotic Laxative Start: 02-24-2021 PEG 3350 17 G M/SCOOP Oral Powder Quantity: 238 Refills: 0 Ordered: 24-Feb-2021 DO Start : 24-Feb-2021 Complete Start: 02-24-2021 End: 03-07-2021 polyethylene glycol (GLYCOLA X) 17 GM/SCOOP powder Follow instructions provided to you from physician's office. 238 g 0 02/24/2021 03/07/2021 Discontinued (Therapy completed) traMADol hydrochloride 50 mg oral tablet (20 sources) Opioid Agonist Start: 02-13-2021 traMADol HCl - 50 MG Oral Tablet Quantity: 46 Refills: 0 Ordered: 25-Feb-2021 DO Start : 13-Feb-2021 Complete Start: 04-05-2009 tramadol hcl(U LTRAM 50 MG TAB) Take by mouth. 0 04/05/2009 Active Start: 04-05-2009 tramadol hcl(U LTRAM 50 MG TAB) Take one (1) or two(2) tablets every eight(8) hours as needed for pain. 0 04/05/2009 Active traMADol HCl Not -Taking/PRN traMADol HCl Act buddy Comment on above: Take one (1) or two( 2) tablets every eight(8) hours as needed for pain. Take 50 mg by mouth. Take by mouth. tropicamide 10 mg/ml ophthalmic solution (2 sources) Anticholinergic Start: 03-13-2024 End: 03-13-2024 tropicamide 1 % 1 Drop (MYDRIACYL) Start: 02-19-2022 End: 02-19-2022 tropicamide 1 % 1 Drop (MYDR IACYL) Problems Active Problems Problem Classification Problem Date Documented Date Episodic/Chronic Asthma (4 sources) Mild intermittent asthma; Translations: [Mild intermittent asthma, uncomplicated] Chronic Cardiac dysrhythmias (1 source) Tachycardia, unspecified; Translations: [Tachycardia, unspecified] Onset: 06-12-20 Episodic Cataract (17 sources) Bilateral pseudophakia; Translations: [Presence of intraocular lens] Onset: 11-03-20 10 Resolved : 06-09-20 Chronic Chronic obstructive pulmonary disease and bronchiectasis (2 sources) Acute exacerbation of chronic obstructive airways disease; Translations: [Chronic obstructive pulmonary disease with (acute) exacerbation] Chronic Conduction disorders (7 sources) EKG: right bundle branch block; Translations: [Right bundle branch block] Onset: 07-26-20 Chronic Congestive heart failure; nonhypertensive (3 sources) Heart failure, unspecified; Translations: [Heart failure] Onset: 07-29-20 22 04-07-2023 Chronic Coronary atherosclerosis and other heart disease (9 sources) Coronary artery spasm; Translations: [Other and unspecified angina pectoris] Onset: 08-29-20 Chronic Deficiency and other anemia (1 source) Anemia; Translations: [Anemia, unspecified type] Episodic Deficiency and other anemia (1 source) Iron deficiency anemia; Translations: [Other iron deficiency anemias] Episodic Deficiency and other anemia (1 source) Chronic anemia; Translations: [Anemia, unspecified] Episodic Deficiency and other anemia (1 source) Iron deficiency anemia secondary to inadequate dietary iron intake; Translations: [Other iron deficiency anemias] Episodic Diabetes mellitus without complication (20 sources) Diabetes mellitus; Translations: [Diabetes mellitus without mention of complication, type II or unspecified type, not stated as uncontrolled] Onset: 05-19-20 13 05-19-2013 Chronic Diabetes mellitus without complication (1 source) Hyperglycemia, unspecified; Translations: [Hyperglycemia, unspecified] Onset: 06-12-20 24 Episodic Disorders of lipid metabolism (7 sources) Hyperlipidemia; Translations: [Other and unspecified hyperlipidemia] Onset: 09-07-20 Chronic Esophageal disorders (3 sources) Gastro-esophageal reflux disease without esophagitis; Translations: [Gastroesophageal reflux disease without esophagitis] Onset: 09-07-20 22 04-07-2023 Chronic Esophageal disorders (2 sources) Esophageal disorders; Translations: [GASTROESOPHAGEAL REFLUX DISEASE WITHOUT ESOPHAGITIS] Onset: 12-08-19 Essential hypertension (8 sources) Benign essential hypertension; Translations: [Benign essential hypertension] Onset: 09-07-20 Chronic Genitourinary symptoms and ill-defined conditions (4 sources) Dysuria; Translations: [Dysuria] Episodic Headache; including migraine (1 source) Pain in face; Translations: [Left facial pain] Episodic Hypertension with complications and secondary hypertension (4 sources) Hypertensive heart disease with heart failure; Translations: [Hypertensive heart failure] Onset: 07-29-2004-07-2023 Chronic Immunizations and screening for infectious disease (6 sources) Contact with and (suspected) exposure to other viral communicable diseases; Translations: [Encounter for immunization] Onset: 04-06-20 Resolved : 07-25-20 Episodic Inflammation; infection of eye (except that caused by tuberculosis or sexually transmitteddisease) (7 sources) Keratoconjunctivitis sicca; Translations: [Keratoconjunctivitis sicca, not specified as Sjogren's, bilateral] Chronic Nonspecific chest pain (13 sources) Chest pain; Translations: [Chest pain, unspecified] Onset: 08-28-20 Episodic Osteoarthritis (3 sources) Primary osteoarthritis, right wrist; Translations: [Osteoarthritis of joint of right wrist] Onset: 09-07-20 22 04-07-2023 Chronic Other and unspecified benign neoplasm (10 sources) History of polyp of colon; Translations: [Personal history of colonic polyps] 09-07-2016 Episodic Other connective tissue disease (1 source) Neuralgia and neuritis, unspecified; Translations: [NEURALGIA AND NEURITIS UNSPECIFIED] Onset: 02-15-20 Episodic Other connective tissue disease (1 source) Muscle pain; Translations: [Myalgia, unspecified site] Episodic Other connective tissue disease (1 source) Poor posture; Translations: [Abnormal posture] Episodic Other connective tissue disease (1 source) Myalgia, unspecified site; Translations: [Myalgia] Onset: 05-14-20 Episodic Other connective tissue disease (1 source) Abnormal posture; Translations: [Postural imbalance] Onset: 05-14-20 Episodic Other eye disorders (4 sources) Scar of cornea of bilateral eyes; Translations: [Unspecified corneal scar and opacity] Episodic Other gastrointestinal disorders (10 sources) Irritable bowel syndrome; Translations: [Irritable bowel syndrome without diarrhea] 09-06-2017 Chronic Other nervous system disorders (5 sources) Other chronic pain; Translations: [OTHER CHRONIC PAIN] Onset: 02-15-20 Chronic Other nervous system disorders (1 source) Other specified mononeuropathies; Translations: [OTHER SPECIFIED MONONEUROPATHIES] Onset: 04-21-20 Chronic Other nervous system disorders (4 sources) Other specified mononeuropathies of right lower limb; Translations: [OTH SPEC MONONEUROPATH RT LOW LIMB] Onset: 02-24-20 Chronic Other nervous system disorders (2 sources) Mononeuropathy of lower limb; Translations: [Unspecified mononeuropathy of unspecified lower limb] Onset: 02-24-2004-07-2023 Chronic Other nervous system disorders (2 sources) Intercostal neuralgia; Translations: [Other specified mononeuropathies] Onset: 04-21-2007-28-2023 Chronic Other non-traumatic joint disorders (4 sources) Pain in right hip; Translations: [PAIN IN RIGHT HIP] Onset: 02-12-20 Episodic Other nutritional; endocrine; and metabolic disorders (5 sources) Obesity; Translations: [Obesity, unspecified] Chronic Other nutritional; endocrine; and metabolic disorders (2 sources) Body mass index (BMI) 34.0-34.9, adult; Translations: [Body mass index (BMI) 34.0-34.9, adult] Onset: 07-26-20 Chronic Other nutritional; endocrine; and metabolic disorders (1 source) Weight loss; Translations: [Abnormal weight loss] Episodic Other screening for suspected conditions (not mental disorders or infectious disease) (6 sources) Cardiovascular stress test abnormal; Translations: [Other nonspecific abnormal results of function study of cardiovascular system] Onset: 06-12-20 Episodic Other upper respiratory disease (4 sources) Seasonal allergic rhinitis; Translations: [Other seasonal allergic rhinitis] Onset: 07-28-2007-28-2023 Chronic Other upper respiratory disease (1 source) Other seasonal allergic rhinitis Chronic Other upper respiratory infections (5 sources) Acute ethmoidal sinusitis; Translations: [Acute ethmoidal sinusitis, unspecified] Onset: 07-25-20 Resolved : 07-25-20 Episodic Phlebitis; thrombophlebitis and thromboembolism (1 source) Acute embolism and thrombosis of unspecified deep veins of right lower extremity; Translations: [Acute embolism and thrombosis of unspecified deep veins of right lower extremity] Onset: 11-30-19 Episodic Residual codes; unclassified (10 sources) Chronic pain; Translations: [Other chronic pain] Onset: 08-02-20 17 08-02-2017 Chronic Residual codes; unclassified (5 sources) Sleep apnea; Translations: [Unspecified sleep apnea] Chronic Residual codes; unclassified (2 sources) Other specified health status; Translations: [Other specified health status] Onset: 07-26-20 Episodic Retinal detachments; defects; vascular occlusion; and retinopathy (12 sources) Retinal pigment epithelial abnormality; Translations: [Other specified retinal disorders] Onset: 06-09-20 Chronic Spondylosis; intervertebral disc disorders; other back problems (15 sources) Other intervertebral disc degeneration, lumbar region; Translations: [Spondylosis without myelopathy or radiculopathy, lumbar region] Onset: 03-09-20 Chronic Thyroid disorders (12 sources) Hypothyroidism; Translations: [Hypothyroidism, unspecified] Onset: 05-19-20 13 05-19-2013 Chronic Unclassified (1 source) Patient encounter status; Translations: [Pre-op testing] Unclassified (1 source) R07.9 - Chest pain, unspecified; Translations: [R07.9 - Chest pain, unspecified] Onset: 12-01-19 Unclassified (4 sources) LOW BACK PAIN, UNSPECIFIED; Translations: [LOW BACK PAIN, UNSPECIFIED] Onset: 07-06-20 Unclassified (1 source) CONTACT W/AND (SUSP) EXPOS COVID-19; Translations: [CONTACT W/AND (SUSP) EXPOS COVID-19] Onset: 09-02-20 22 Unclassified (1 source) EMS Onset: 06-12-20 Unclassified (1 source) Personal history of COVID-19; Translations: [Personal history of COVID-19] Onset: 07-26-20 Urinary tract infections (4 sources) Lower urinary tract infectious disease; Translations: [UTI (lower urinary tract infection)] Episodic Viral infection (1 source) COVID-19; Translations: [COVID-19] Onset: 06-13-20 Past or Other Problems Problem Classification Problem Date Documented Da te Episodic/Chronic Allergic reactions (11 sources) Contact dermatitis; Translations: [Unspecified contact dermatitis, unspecified cause] Onset: 12-20-2008 12-20-2008 Episodic Chronic obstructive pulmonary disease and bronchiectasis (1 source) Bronchitis, not specified as acute or chronic Onset: 04-06-2022 Resolved: 04-06-2022 Episodic Conditions associated with dizziness or vertigo (4 sources) Dizziness and giddiness; Translations: [DIZZINESS AND GIDDINESS] Onset: 07-25-2022 Episodic Fluid and electrolyte disorders (3 sources) Dehydration; Translations: [Dehydration] Onset: 07-29-2022 Resolved: 05-07-2023 05-07-2023 Episodic Osteoporosis (10 sources) Osteoporosis; Translations: [Age-related osteoporosis without current pathological fracture] Onset: 05-19-2013 Resolved: 04-29-2016 04-29-2016 Chronic Other aftercare (1 source) [facility] (current) use of aspirin; Translations: [GROUP HOME CURRENT USE OF ASPIRIN] Onset: 09-07-2022 Episodic Other aftercare (1 source) Other continuous churn buttermaker (current) drug therapy; Translations: [OTH GROUP HOME CURRENT DRUG THERAPY] Onset: 09-07-2022 Episodic Other aftercare (1 source) emt intermediate (current) use of oral hypoglycemic drugs; Translations: [GROUP HOME USE ORAL HYPOGLYCEMIC DX] Onset: 09-07-2022 Episodic Other aftercare (2 sources) Long-term current use of aspirin; Translations: [[facility] (current) use of aspirin] Onset: 09-07-2022 04-07-2023 Episodic Other aftercare (2 sources) Long-term current use of oral hypoglycemic medication; Translations: [[facility] (current) use of oral hypoglycemic drugs] Onset: 09-07-2022 04-07-2023 Episodic Other aftercare (2 sources) Long-term current use of drug therapy; Translations: [Other [facility] (current) drug therapy] Onset: 09-07-2022 04-07-2023 Episodic Other and unspecified benign neoplasm (10 sources) Tubular adenoma of colon; Translations: [Benign neoplasm of colon, unspecified] Onset: 08-19-2016 09-07-2016 Episodic Other connective tissue disease (4 sources) Other muscle spasm; Translations: [OTHER MUSCLE SPASM] Onset: 07-01-2022 Episodic Other connective tissue disease (1 source) Trochanteric bursitis, right hip; Translations: [TROCHANTERIC BURSITIS RIGHT HIP] Onset: 07-06-2022 Episodic Other connective tissue disease (2 sources) Neuropathy; Translations: [Neuralgia and neuritis, unspecified] Onset: 02-14-2023 04-07-2023 Episodic Other connective tissue disease (2 sources) Spasm; Translations: [Other muscle spasm] Onset: 07-01-2022 04-07-2023 Episodic Other connective tissue disease (2 sources) Trochanteric bursitis of right hip; Translations: [Trochanteric bursitis, right hip] Onset: 07-06-2022 04-07-2023 Episodic Other eye disorders (11 sources) Scar of cornea of left eye; Translations: [Unspecified corneal scar and opacity] Onset: 06-09-2019 06-09-2019 Episodic Other gastrointestinal disorders (10 sources) Diarrhea; Translations: [Diarrhea, unspecified] Onset: 07-16-2016 07-16-2016 Episodic Other non-traumatic joint disorders (4 sources) Pain in right wrist; Translations: [PAIN IN RIGHT WRIST] Onset: 09-06-2022 Episodic Other non-traumatic joint disorders (2 sources) Pain in right hip joint; Translations: [Pain in right hip] Onset: 02-11-2023 04-07-2023 Episodic Other non-traumatic joint disorders (2 sources) Pain in wrist; Translations: [Pain in unspecified wrist] Onset: 09-06-2022 04-07-2023 Episodic Residual codes; unclassified (10 sources) Family history of cancer of colon; Translations: [Family history of malignant neoplasm of digestive organs] Onset: 07-16-2016 07-16-2016 Episodic Residual codes; unclassified (1 source) Acquired absence of other specified parts of digestive tract; Translations: [ACQ ABSENCE OTH PART DIGESTV TRACT] Onset: 09-07-2022 Episodic Residual codes; unclassified (1 source) Acquired absence of both cervix and uterus; Translations: [ACQUIRED ABSENCE BOTH CERVIX AND UTERUS] Onset: 09-07-2022 Episodic Residual codes; unclassified (2 sources) Acquired absence of cervix and uterus; Translations: [Acquired absence of both cervix and uterus] Onset: 09-07-2022 04-07-2023 Episodic Residual codes; unclassified (2 sources) Disorder of digestive tract; Translations: [Acquired absence of other specified parts of digestive tract] Onset: 09-07-2022 04-07-2023 Episodic Residual codes; unclassified (1 source) Pain, unspecified; Translations: [Pain, unspecified] Onset: 11-08-2023 Episodic Spondylosis; intervertebral disc disorders; other back problems (6 sources) Spinal stenosis of lumbar region; Translations: [Spinal stenosis, lumbar region without neurogenic claudication] Onset: 05-14-2023 Episodic Unclassified (5 sources) Never smoked tobacco; Translations: [Never a smoker] Unclassified (1 source) LOW BACK PAIN, UNSPECIFIED; Translations: [LOW BACK PAIN, UNSPECIFIED] Onset: 11-10-2022 Unclassified (1 source) Acute cough R05.1 Unclassified (2 sources) Onset: 12-13-2023 12-13-2023 Unclassified (1 source) Personal history of COVID-19; Translations: [Personal history of COVID-19] Onset: 07-26-2024 Results Test Name Value Interpretation Reference Range Facility CBC AND AUTO DIFFon 06-13-20 ABSOLUTE BASOPHIL 0.0 X10E9/L Normal 0.0-0.2 [facility] Comment on above: Performed By: #### C JAMES, 87944-2, CMP, 02442-4, 36843-5 #### [facility] ([id number]) [address] [place] [address] 99330 ABSOLUTE NEUTROPHIL 7.1 X10E9/L High 1.5-6.6 [facility] Comment on above: Performed By: #### C JAMES, 93304-2, CMP, 51410-4, 68824-6 #### [facility] ([id number]) [address] [place] [address] 87083 Basophils/100 WBC (Bld) 0.2 % Normal [facility] Comment on above: Performed By: #### Siria RAMIREZ, 78357-7, CMP, 58132-3, 57528-3 #### [facility] ([id number]) [address] [place] [address] 07491 Eosinophils (Bld) [#/Vol] 0.0 10*3/uL Normal 0.0-0.4 [facility] Comment on above: Performed By: #### Siria RAMIREZ, 54290-3, CMP, 88576-2, 77512-0 #### [facility] ([id number]) [address] [place] [address] 12850 Eosinophils/100 WBC (Bld) 0.0 % Normal [facility] Comment on above: Performed By: #### Siria RAMIREZ, 77684-4, CMP, 62514-0, 54432-3 #### [facility] ([id number]) [address] [place] [address] 08953 Erythrocyte distribution width (RBC) [Ratio] 16.0 % High 11.5-15.0 [facility] Comment on above: Performed By: #### Siria RAMIREZ, 99973-9, CMP, 27916-8, 08667-9 #### [facility] ([id number]) [address] [place] [address] 50352 Hematocrit (Bld) [Volume fraction] 30.8 % Low 35-47 [facility] Comment on above: Performed By: #### C JAMES, 62772-5, CMP, 49927-6, 21236-3 #### [facility] ([id number]) [address] [place] [address] 73649 Hemoglobin (Bld) [Mass/Vol] 10.3 g/dL Low 11.7-15.5 [facility] Comment on above: Performed By: #### C JAMES, 18985-2, CMP, 14109-3, 15737-3 #### [facility] ([id number]) [address] [place] [address] 31651 Lymphocytes (Bld) [#/Vol] 1.0 10*3/uL Normal 1.0-3.5 [facility] Comment on above: Performed By: #### C JAMES, 09977-3, CMP, 28010-2, 04933-8 #### [facility] ([id number]) [address] [place] [address] 95993 Lymphocytes/100 WBC (Bld) 12.1 % Normal [facility] Comment on above: Performed By: #### Siria RAMIREZ, 40956-6, CMP, 84522-2, 34634-5 #### [facility] ([id number]) [address] [place] [address] 42851 MCH (RBC) [Entitic mass] 29.9 pg Normal 27-34 [facility] Comment on above: Performed By: #### C BCA, 53690-6, CMP, 72758-5, 70778-1 #### [facility] ([id number]) [address] [place] [address] 65303 MCHC (RBC) [Mass/Vol] 33.4 g/dL Normal 32-[address] [facility] Comment on above: Performed By: #### Siria RAMIREZ, 34268-0, CMP, 24010-4, 79440-9 #### [facility] ([id number]) [address] [place] [address] 14729 MCV (RBC) [Entitic vol] 90 fL Normal 80-100 [facility] Comment on above: Performed By: #### Siria RAMIREZ, 47804-6, CMP, 72995-7, 53024-9 #### [facility] ([id number]) [address] [place] [address] 60237 Monocytes (Bld) [#/Vol] 0.4 10*3/uL Normal 0-0.9 [facility] Comment on above: Performed By: #### Siria RAMIREZ, 45105-7, CMP, 89190-0, 99815-8 #### [facility] ([id number]) [address] [place] [address] 50366 Monocytes/100 WBC (Bld) 4.8 % Normal [facility] Comment on above: Performed By: #### Siria RAMIREZ, 06719-5, CMP, 47497-1, 41073-6 #### [facility] ([id number]) [address] [place] [address] 70172 Neutrophils/100 WBC (Bld) 82.9 % Normal [facility] Comment on above: Performed By: #### Siria RAMIREZ, 19173-2, CMP, 89967-5, 09589-7 #### [facility] ([id number]) [address] [place] [address] 72260 Platelet mean volume (Bld) [Entitic vol] 8.0 fL Normal 7-12 [facility] Comment on above: Performed By: #### Siria RAMIREZ, 71426-7, CMP, 06079-6, 53121-5 #### [facility] ([id number]) [address] [place] [address] 76265 Platelets (Bld) [#/Vol] 200 10*3/uL Normal 150-450 [facility] Comment on above: Performed By: #### C BCA, 41384-6, CMP, 15390-1, 01814-5 #### [facility] ([id number]) [address] [place] [address] 08539 RBC COUNT 3.43 X10E12/L Low 3.80-5.20 [facility] Comment on above: Performed By: #### C BCA, 18930-4, CMP, 58446-9, 74399-6 #### [facility] ([id number]) [address] [place] [address] 42598 WBC (Bld) [#/Vol] 8.5 10*3/uL Normal 4.0-11.0 [facility] Comment on above: Performed By: #### C BCA, 95639-3, CMP, 19312-9, 27388-3 #### [facility] ([id number]) [address] [place] [address] 54228 COMPREHENSIVE METABOLIC PANE Schuyler 06-13-2024 Albumin [Mass/Vol] 3.4 g/dL Normal 3.2-5.3 [facility] Comment on above: Performed By: #### Siria BCA, 50719-2, CMP, 39188-1, 09790-2 #### [facility] ([id number]) [address] [place] [address] 53351 ALP [Catalytic activity/Vol] 69 U/L Normal 39-130 [facility] Comment on above: Performed By: #### C BCA, 42480-7, CMP, 09834-2, 68488-4 #### [facility] ([id number]) [address] [place] [address] 41578 ALT [Catalytic activity/Vol] 34 U/L High 0-31 [facility] Comment on above: Performed By: #### C BCA, 71141-8, CMP, 35998-1, 38598-1 #### [facility] ([id number]) [address] [place] [address] 27686 Anion gap [Moles/Vol] 8 mmol/L Normal 5-[address] [facility] Comment on above: Performed By: #### C BCA, 04420-6, CMP, 91026-2, 41296-4 #### [facility] ([id number]) [address] [place] [address] 02428 AST [Catalytic activity/Vol] 31 U/L Normal 0-41 [facility] Comment on above: Performed By: #### C BCA, 56111-0, CMP, 04223-1, 63481-7 #### [facility] ([id number]) [address] [place] [address] 25508 Bilirubin [Mass/Vol] 0.3 mg/dL Normal 0.3-1.2 [facility] Comment on above: Performed By: #### C BCA, 44753-9, CMP, 80573-6, 14032-1 #### [facility] ([id number]) [address] [place] [address] 55055 Calcium [Mass/Vol] 8.5 mg/dL Normal 8.5-10.5 [facility] Comment on above: Performed By: #### C BCA, 75247-7, CMP, 59044-5, 99184-2 #### [facility] ([id number]) [address] [place] [address] 92744 Chloride [Moles/Vol] 107 mmol/L Normal 98-109 [facility] Comment on above: Performed By: #### C BCA, 72263-2, CMP, 13001-9, 69707-7 #### [facility] ([id number]) [address] [place] [address] 11123 CO2 [Moles/Vol] 21 mmol/L Low 22-32 [facility] Comment on above: Performed By: #### C BCA, 85442-2, CMP, 43145-5, 89691-2 #### [facility] ([id number]) [address] [place] [address] 81475 Creatinine [Mass/Vol] 0.62 mg/dL Normal 0.40-1.[address] [facility] Comment on above: Result Comment: METH OD TRACEABLE TO IDMS STANDARD Performed By: #### C BCA, 35437-2, CMP, 46970-1, 67657-6 #### [facility] ([id number]) [address] [place] [address] 87178 eGFR (CKD-EPI) NON-RACE DEPENDENT >90 Normal >59 [facility] Comment on above: Result Comment: Reported eGFR is based on the CKD-EPI 2020 equation that does not use a race coefficient. Performed By: #### C BCA, 07071-4, CMP, 14500-2, 83541-1 #### [facility] ([id number]) [address] [place] [address] 83870 Glucose [Mass/Vol] 159 mg/dL High 65-99 [facility] Comment on above: Performed By: #### C BCA, 93902-3, CMP, 04549-4, 39002-5 #### [facility] ([id number]) [address] [place] [address] 21155 Potassium [Moles/Vol] 3.8 mmol/L Normal 3.5-5.[address] [facility] Comment on above: Performed By: #### C BCA, 89117-0, CMP, 12241-3, 11981-9 #### [facility] ([id number]) [address] [place] [address] 44400 Protein [Mass/Vol] 6.3 g/dL Normal 6.0-8.0 [facility] Comment on above: Performed By: #### C JAMES, 86792-6, CMP, 13571-0, 78590-5 #### [facility] ([id number]) [address] [place] [address] 46095 Sodium [Moles/Vol] 136 mmol/L Normal 134-146 [facility] Comment on above: Performed By: #### C JAMES, 22562-3, CMP, 09149-4, 34946-9 #### [facility] ([id number]) [address] [place] [address] 15335 Urea nitrogen [Mass/Vol] 17 mg/dL Normal 5-27 [facility] Comment on above: Performed By: #### C JAMES, 63740-3, CMP, 37944-3, 63080-6 #### [facility] ([id number]) [address] [place] [address] 33044 Glucose Glucometer (BldC) [M ass/Vol]on 06-13-2024 Glucose [Mass/Vol] 233 mg/dL High 65-99 [facility] Glucose [Mass/Vol] 268 mg/dL High 65-99 [facility] Glucose [Mass/Vol] 153 mg/dL High 65-99 [facility] Glucose [Mass/Vol] 276 mg/dL High 65-99 [facility] MAGNESIUMon 06-13-2024 Magnesium [Mass/Vol] 1.5 mg/dL Low 1.8-2.6 [facility] Comment on above: Performed By: #### C JAMES, 67364-7, CMP, 19741-0, 67521-7 #### [facility] ([id number]) [address] [place] [address] 59892 Troponin I.cardiac High sens itivity method [Mass/Vol]on 06-13-2024 3 HOUR TROP I, HIGH SENSITIVITY 100 ng/L High <16 [facility] Comment on above: Result Comment: Elevations of hs-Troponin may be due to causes other than myocardial ischemia. Recommend serial hs-Troponin testing be performed. For the initial evaluation and management of chest pain patients, refer to the algorithms linked below. Emergency Patient: [email or web address] uh=[email or web address] Inpatient: [email or web address] uh=[email or web address] Performed By: #### C BCA, 04682-4, CMP, 27110-9, 27347-5 #### [facility] ([id number]) [address] [place] [address] 64853 1 HOUR TROP I, HIGH SENSITIVITY 116 ng/L High <16 [facility] Comment on above: Result Comment: Elevations of hs-Troponin may be due to causes other than myocardial ischemia. Recommend serial hs-Troponin testing be performed. For the initial evaluation and management of chest pain patients, refer to the algorithms linked below. Emergency Patient: [email or web address] uh=[email or web address] Inpatient: [email or web address] uh=acaea Performed By: #### C BCA, 78535-0, CMP, 64246-4, 58330-3 #### [facility] ([id number]) [address] [place] [address] 49142 TROPONIN I, HIGH SENSITIVITY 116 ng/L High <16 [facility] Comment on above: Result Comment: Elevations of hs-Troponin may be due to causes other than myocardial ischemia. Recommend serial hs-Troponin testing be performed. For the initial evaluation and management of chest pain patients, refer to the algorithms linked below. Emergency Patient: [email or web address] uh=[email or web address] Inpatient: [email or web address] uh=acaea Performed By: #### C BCA, 20830-6, CMP, 28248-9, 28017-1 #### [facility] ([id number]) [address] [place] [address] 45343 Beta hydroxybutyrate [Moles/ Vol]on 06-12-2024 BetaHydroxybutyrate 0.20 mmol/L Normal 0.02-0.27 [facility] Comment on above: Performed By: #### 6 873-4, 33713-2, 56376-7 #### [facility] ([id number]) [address] [place] [address] 75534 CBC AND AUTO DIFFon 06-12-20 ABSOLUTE BASOPHIL 0.0 X10E9/L Normal 0.0-0.2 [facility] Comment on above: Performed By: #### C BCA, 06142-1, CMP, 93174-4, 14608-1 #### [facility] ([id number]) [address] [place] [address] 95123 ABSOLUTE NEUTROPHIL 5.7 X10E9/L Normal 1.5-6.6 [facility] Comment on above: Performed By: #### C BCA, 73617-9, CMP, 96911-0, 24470-1 #### [facility] ([id number]) [address] [place] [address] 91679 Basophils/100 WBC (Bld) 0.1 % Normal [facility] Comment on above: Performed By: #### C BCA, 90154-8, CMP, 81396-9, 04076-1 #### [facility] ([id number]) [address] [place] [address] 40674 Eosinophils (Bld) [#/Vol] 0.0 10*3/uL Normal 0.0-0.4 [facility] Comment on above: Performed By: #### C JAMES, 13801-2, CMP, 26844-4, 94811-5 #### [facility] ([id number]) [address] [place] [address] 13649 Eosinophils/100 WBC (Bld) 0.0 % Normal [facility] Comment on above: Performed By: #### Siria RAMIREZ, 97829-4, CMP, 16906-2, 30531-2 #### [facility] ([id number]) [address] [place] [address] 44401 Erythrocyte distribution width (RBC) [Ratio] 16.2 % High 11.5-15.0 [facility] Comment on above: Performed By: #### Siria RAMIREZ, 23269-2, CMP, 25461-2, 19489-1 #### [facility] ([id number]) [address] [place] [address] 88465 Hematocrit (Bld) [Volume fraction] 32.5 % Low 35-47 [facility] Comment on above: Performed By: #### Siria RAMIREZ, 79342-6, CMP, 98369-6, 08232-8 #### [facility] ([id number]) [address] [place] [address] 00759 Hemoglobin (Bld) [Mass/Vol] 10.7 g/dL Low 11.7-15.5 [facility] Comment on above: Performed By: #### Siria RAMIREZ, 78153-8, CMP, 10025-1, 18725-0 #### [facility] ([id number]) [address] [place] [address] 12494 Lymphocytes (Bld) [#/Vol] 0.6 10*3/uL Low 1.0-3.5 [facility] Comment on above: Performed By: #### Siria RAMIREZ, 62580-0, CMP, 76106-5, 90023-6 #### [facility] ([id number]) [address] [place] [address] 18265 Lymphocytes/100 WBC (Bld) 8.7 % Normal [facility] Comment on above: Performed By: #### C JAMES, 67675-4, CMP, 30971-2, 56659-2 #### [facility] ([id number]) [address] [place] [address] 58883 MCH (RBC) [Entitic mass] 29.6 pg Normal 27-34 [facility] Comment on above: Performed By: #### Siria RAMIREZ, 13167-3, CMP, 11445-0, 16663-8 #### [facility] ([id number]) [address] [place] [address] 27427 MCHC (RBC) [Mass/Vol] 32.9 g/dL Normal 32-[address] [facility] Comment on above: Performed By: #### C JAEMS, 27616-7, CMP, 70340-1, 23223-0 #### [facility] ([id number]) [address] [place] [address] 98027 MCV (RBC) [Entitic vol] 90 fL Normal 80-100 [facility] Comment on above: Performed By: #### Siria RAMIREZ, 03461-4, CMP, 27463-6, 77270-1 #### [facility] ([id number]) [address] [place] [address] 69689 Monocytes (Bld) [#/Vol] 0.2 10*3/uL Normal 0-0.9 [facility] Comment on above: Performed By: #### Siria RAMIREZ, 21132-4, CMP, 56019-6, 74311-4 #### [facility] ([id number]) [address] [place] [address] 24534 Monocytes/100 WBC (Bld) 3.3 % Normal [facility] Comment on above: Performed By: #### Siria BCA, 96676-9, CMP, 41616-2, 01789-4 #### [facility] ([id number]) [address] [place] [address] 70105 Neutrophils/100 WBC (Bld) 87.9 % Normal [facility] Comment on above: Performed By: #### Siria BCA, 00136-7, CMP, 10364-3, 35078-6 #### [facility] ([id number]) [address] [place] [address] 67472 Platelet mean volume (Bld) [Entitic vol] 7.7 fL Normal 7-12 [facility] Comment on above: Performed By: #### Siria RAMIREZ, 95559-5, CMP, 71855-4, 07847-9 #### [facility] ([id number]) [address] [place] [address] 60597 Platelets (Bld) [#/Vol] 212 10*3/uL Normal 150-450 [facility] Comment on above: Performed By: #### Siria RAMIREZ, 46762-7, CMP, 30270-5, 61750-4 #### [facility] ([id number]) [address] [place] [address] 64529 RBC COUNT 3.62 X10E12/L Low 3.80-5.20 [facility] Comment on above: Performed By: #### Siria BCA, 30216-3, CMP, 63994-9, 78846-7 #### [facility] ([id number]) [address] [place] [address] 73084 WBC (Bld) [#/Vol] 6.4 10*3/uL Normal 4.0-11.0 [facility] Comment on above: Performed By: #### Siria BCA, 97281-8, CMP, 44246-5, 72604-2 #### [facility] ([id number]) [address] [place] [address] 84639 COMPREHENSIVE METABOLIC PANE Schuyler 06-12-2024 Albumin [Mass/Vol] 3.8 g/dL Normal 3.2-5.3 [facility] Comment on above: Performed By: #### C BCA, 28620-8, CMP, 41757-6, 49899-2 #### [facility] ([id number]) [address] [place] [address] 62729 ALP [Catalytic activity/Vol] 78 U/L Normal 39-130 [facility] Comment on above: Performed By: #### C BCA, 22963-4, CMP, 65571-6, 90161-7 #### [facility] ([id number]) [address] [place] [address] 92730 ALT [Catalytic activity/Vol] 30 U/L Normal 0-31 [facility] Comment on above: Performed By: #### C BCA, 80762-3, CMP, 63746-2, 18201-8 #### [facility] ([id number]) [address] [place] [address] 93634 Anion gap [Moles/Vol] 16 mmol/L High 5-[address] [facility] Comment on above: Performed By: #### C BCA, 30729-4, CMP, 12289-9, 76685-0 #### [facility] ([id number]) [address] [place] [address] 88727 AST [Catalytic activity/Vol] 31 U/L Normal 0-41 [facility] Comment on above: Performed By: #### C BCA, 23839-6, CMP, 74116-5, 54917-0 #### [facility] ([id number]) [address] [place] [address] 45221 Bilirubin [Mass/Vol] 0.2 mg/dL Low 0.3-1.2 [facility] Comment on above: Performed By: #### C BCA, 67635-1, CMP, 06727-8, 87328-5 #### [facility] ([id number]) [address] [place] [address] 28980 Calcium [Mass/Vol] 9.0 mg/dL Normal 8.5-10.5 [facility] Comment on above: Performed By: #### C BCA, 75822-7, CMP, 24848-4, 83910-1 #### [facility] ([id number]) [address] [place] [address] 72557 Chloride [Moles/Vol] 103 mmol/L Normal 98-109 [facility] Comment on above: Performed By: #### C BCA, 76069-1, CMP, 69297-5, 94013-5 #### [facility] ([id number]) [address] [place] [address] 09370 CO2 [Moles/Vol] 15 mmol/L Low 22-32 [facility] Comment on above: Performed By: #### C BCA, 55661-5, CMP, 90006-6, 30400-0 #### [facility] ([id number]) [address] [place] [address] 37320 Creatinine [Mass/Vol] 0.92 mg/dL Normal 0.40-1.[address] [facility] Comment on above: Result Comment: METH OD TRACEABLE TO IDMS STANDARD Performed By: #### C BCA, 18544-8, CMP, 73028-8, 15253-4 #### [facility] ([id number]) [address] [place] [address] 72636 GFR/1.73 sq M.predicted among non-blacks MDRD (S/P/Bld) [Vol rate/Area] 65 mL/min/{1.73_m2} Normal >59 [facility] Comment on above: Result Comment: Reported eGFR is based on the CKD-EPI 2020 equation that does not use a race coefficient. Performed By: #### C BCA, 79966-5, CMP, 07640-2, 37390-8 #### [facility] ([id number]) [address] [place] [address] 46770 Glucose [Mass/Vol] 362 mg/dL High 65-99 [facility] Comment on above: Performed By: #### C BCA, 31743-2, CMP, 67412-7, 42307-3 #### [facility] ([id number]) [address] [place] [address] 37987 Potassium [Moles/Vol] 3.7 mmol/L Normal 3.5-5.[address] [facility] Comment on above: Performed By: #### C BCA, 33859-4, CMP, 80349-1, 97633-8 #### [facility] ([id number]) [address] [place] [address] 59878 Protein [Mass/Vol] 6.9 g/dL Normal 6.0-8.0 [facility] Comment on above: Performed By: #### C BCA, 31440-4, CMP, 02182-2, 08221-4 #### [facility] ([id number]) [address] [place] [address] 23094 Sodium [Moles/Vol] 134 mmol/L Normal 134-146 [facility] Comment on above: Performed By: #### C BCA, 01072-2, CMP, 31899-6, 80560-0 #### [facility] ([id number]) [address] [place] [address] 05476 Urea nitrogen [Mass/Vol] 22 mg/dL Normal 5-27 [facility] Comment on above: Performed By: #### C BCA, 40642-9, CMP, 99730-0, 65480-7 #### [facility] ([id number]) [address] [place] [address] 23590 Fibrin D-dimer DDU (PPP) [Ma ss/Vol]on 06-12-2024 D DIMER <150 Normal <255 [facility] Comment on above: Result Comment: Results <255 ng/mL DDU: The presence of a VTE can safely be excluded with a negative D-Dimer result and Wells score. A negative result doesn't exclude the possibility of DIC. The test be repeated along with other diagnostic tests if the patient's symptoms persist or worsen. [email or web address] Performed By: #### C JAMES, 03396-6, HARRISON, 54946-6, 58797-9 #### [facility] ([id number]) [address] [place] [address] 56440 Glucose Glucometer (BldC) [M ass/Vol]on 06-12-2024 Glucose [Mass/Vol] 327 mg/dL High 65-99 [facility] Natriuretic peptide B [Mass/ Vol]on 06-12-2024 Natriuretic peptide B (Bld) [Mass/Vol] 71 pg/mL Normal <100.0 [facility] Comment on above: Performed By: #### C JAMES, 70193-8, HARRISON, 01949-4, 39336-8 #### [facility] ([id number]) [address] [place] [address] 07529 Procalcitonin IA [Mass/Vol]o n 06-12-2024 PROCALCITONIN 0.05 ng/mL High <0.05 [facility] Comment on above: Result Comment: NOTE <0.50 ng/mL - Low risk of severe sepsis and/or septic shock. <2.00 ng/mL - Recommend retesting within 6-24 hours. >2.00 ng/mL - High risk of sepsis and/or septic shock. Performed By: #### 6 873-4, 18666-4, 45060-2 #### [facility] ([id number]) [address] [place] [address], [place] [address] Troponin I.cardiac High sens itivity method [Mass/Vol]on 06-12-2024 1 HOUR TROP I, HIGH SENSITIVITY 10 ng/L Normal <16 [facility] Comment on above: Performed By: #### 6 873-4, 70055-8, 15138-3 #### [facility] ([id number]) [address] [place] [address] 24386 TROPONIN I, HIGH SENSITIVITY 7 ng/L Normal <16 [facility] Comment on above: Performed By: #### C BCA, 91841-5, CMP, 16899-7, 05171-6 #### [facility] ([id number]) [address] [place] [address] 94282 VENOUS BLOOD GASon 4 GALI'S TEST Normal [facility] Comment on above: Performed By: #### V BG #### [facility] ([id number]) [address] [place] [address] 44253 BASE,DEFICIT 9.0 MMOL/L High 0.0-2.0 [facility] Comment on above: Performed By: #### V BG #### [facility] ([id number]) [address] [place] [address] 38433 Body temperature 98.6 [degF] Normal 37.0 [facility] Comment on above: Performed By: #### V BG #### [facility] ([id number]) [address] [place] [address] 57672 HCO3 (Bld) [Moles/Vol] 16.0 mmol/L Low 20.0-24.0 [facility] Comment on above: Performed By: #### V BG #### [facility] ([id number]) [address] [place] [address] [id number] Oxygen saturation in Blood 60.0 % Low >80.0 [facility] Comment on above: Performed By: #### V BG #### [facility] ([id number]) [address] [place] [address] 32191 OXYGEN SOURCE [employer] [facility] Comment on above: Performed By: #### V BG #### [facility] ([id number]) [address] [place] [address] 60137 PCO2, VENOUS 30.0 [facility] Low 35-50 [facility] Comment on above: Performed By: #### V BG #### [facility] ([id number]) [address] [place] [address] 03336 PH, VENOUS 7.334 Normal 7.320-7.420 [facility] Comment on above: Performed By: #### V BG #### [facility] ([id number]) [address] [place] [address] 38967 PO2, VENOUS 33 [facility] Normal 30-50 [facility] Comment on above: Performed By: #### V BG #### [facility] ([id number]) [address] [place] [address] 81999 SAMPLE SITE N/A [facility] Comment on above: Performed By: #### V BG #### [facility] ([id number]) [address] [place] [address] 82427 SAMPLE TYPE VENOUS Normal [facility] Comment on above: Performed By: #### V BG #### [facility] ([id number]) [address] [place] [address] [id number] FLUORO FOR SURGICAL PROCEDUR ESon 03-22-2024 FLUORO FOR SURGICAL PROCEDURES Radiology result is complete; follow up with provider / physician office for radiology results Final result Normal [facility] [place] [facility] Glucose,Whole Bloodon 2023 Glucose [Mass/Vol] 95 mg/dL Normal 65-105 [facility] [place] [facility] FLUORO FOR SURGICAL PROCEDUR ESon 02-02-2024 FLUORO FOR SURGICAL PROCEDURES Radiology result is complete; follow up with provider / physician office for radiology results Final result Normal [facility] [place] [facility] Glucose,Whole Bloodon 2023 Glucose [Mass/Vol] 88 mg/dL Normal 65-105 [facility] [place] [facility] POC Glucose Fingerstickon Glucose [Mass/Vol] 88 mg/dL 65 - 105 mg/dL [facility] COVID + FLU Quick Testingon 12-28-2023 SARS-CoV-2 (COVID-19) RNA JAYY+probe Ql (Unsp spec) Negative [facility] Other COVID + FLU Quick Testing Negative [facility] Other FLUORO FOR SURGICAL PROCEDUR ESon 11-08-2023 FLUORO FOR SURGICAL PROCEDURES Radiology result is complete; follow up with provider / physician office for radiology results Final result Normal [facility] [place] [facility] No Panel Informationon 05-14 [facility] XR LUMBAR 3V AP/LAT/L5-S1on 05-14-2023 XR LUMBAR 3V AP/LAT/L5-S1 * * *Final Report* * * DATE OF EXAM: May 14 2023 1:11PM [id number] - XR LUMBAR 3V AP/LAT/L5-S1 / PROCEDURE REASON: multiple diagnoses * * * * Physician Interpretation * * * * EXAMINATION: XR LUMBAR 3V AP/LAT/L5-S1 HISTORY: LOWER BACK PAIN RIGHT SIDE Spinal stenosis of lumbar region, unspecified whether neurogenic claudication present Degenerative arthropathy of spinal facet joint Myalgia Postural imbalance. TECHNIQUE: XR LUMBAR 3V AP/LAT/L5-S1 Laterality: NOT APPLICABLE Number of different views (projections): 3 M: XB_1 COMPARISON: RESULT: Counting Reference: Lumbosacral junction.. For the purposes of this report, the most caudal normal disc space in the lumbar region will be labeled as L5-S1. The iliac crest will serve as a secondary landmark to identify the L4-5 level. Exceptions: none Mild leftward curve in the lumbar spine and straightening of the lumbar lordosis. Minimal anterolisthesis of L3 on L4. Vertebral body heights appear maintained. Moderate degenerative disc changes at L2-3 and L3-4 and severe at L4-5 and L5-S1. Mild degenerative facet changes of the lumbar spine. Maintained sacroiliac joints. Right upper quadrant surgical clips. No acute fracture or dislocation. There are no bony erosions. IMPRESSION: Moderate to severe lumbar spine degenerative change as described. Radio Mechanic Apprentice: JENNIFER Transcribe Date/Time: May 14 2023 1:53P Dictated by : GABRIELA SANDERSON MD This examination was interpreted and the report reviewed and electronically signed by: GABRIELA SANDERSON MD on May 14 2023 1:54PM EST [id number] CN [facility] XR PELVIS 1V APon 05-14-2023 XR PELVIS 1V AP * * *Final Report* * * DATE OF EXAM: May 14 2023 1:11PM [id number] - XR PELVIS 1V AP / PROCEDURE REASON: multiple diagnoses * * * * Physician Interpretation * * * * EXAMINATION: XR PELVIS 1V AP HISTORY: LOWER BACK PAIN RIGHT SIDE Spinal stenosis of lumbar region, unspecified whether neurogenic claudication present Degenerative arthropathy of spinal facet joint Myalgia Postural imbalance. TECHNIQUE: XR PELVIS 1V AP Laterality: NOT APPLICABLE Number of different views (projections): 1 M: XB_1 COMPARISON: RESULT: Lower lumbar degenerative disc changes. There are degenerative changes of the sacroiliac joints greater on the right however they appear maintained. Maintained pubic symphysis. Minimal degenerative changes of both hips. No acute fracture or dislocation. There are no bony erosions. IMPRESSION: Degenerative changes as described. Radio Mechanic Apprentice: JENNIFER Transcribe Date/Time: May 14 2023 1:52P Dictated by : GABRIELA SANDERSON MD This examination was interpreted and the report reviewed and electronically signed by: GABRIELA SANDERSON MD on May 14 2023 1:53PM EST [id number] CN [facility] C-REACTIVE PROTEIN (CRP)on 0 03-27-2023 CRP [Mass/Vol] <0.9 mg/dL [facility] ESR Westergren method (Bld) [Velocity]on 03-27-2023 ESR (Bld) [Velocity] 8 mm/h 0 - 20 mm/hr [facility] POINT OF CARE GLUCOSEon 04-0 Glucose [Mass/Vol] 133 mg/dL Critically high 74-106 [facility] Comment on above: Performed By: #### P OCGLUC #### [facility] [address] [address] [address] Kris Castillo CBC with Auto Differentialon 12-02-2022 Absolute Eos # 0.20 [facility] Absolute Lymph # 2.10 [facility] Absolute [place] # 0.30 [facility] Basophils (Bld) [#/Vol] 0.00 10*3/uL [facility] Basophils/100 WBC (Bld) 1 % 0 - 2 % [facility] Eosinophils/100 WBC (Bld) 3 % 0 - 4 % [facility] Hematocrit (Bld) [Volume fraction] 33.7 % Low 36 - 46 % [facility] Hemoglobin (Bld) [Mass/Vol] 11.3 g/dL Low 12.0 - 16.0 g/dL [facility] Interpretation and review of laboratory results Abnormal [facility] Lymphocytes/100 WBC (Bld) 36 % 24 - 44 % [facility] MCH (RBC) [Entitic mass] 29.2 pg 26 - 34 pg [facility] MCHC (RBC) [Mass/Vol] 33.5 g/dL 31 - 37 g/dL [facility] MCV (RBC) [Entitic vol] 87.1 fL 80 - 100 fL [facility] Monocytes/100 WBC (Bld) 6 % 1 - 7 % [facility] Platelet distribution width (Bld) [Ratio] 15.9 % High 11.5 - 14.9 % [facility] Platelet mean volume (Bld) [Entitic vol] 7.5 fL 6.0 - 12.0 fL [facility] Platelets (Bld) [#/Vol] 255 10*3/uL [facility] RBC (Bld) [#/Vol] 3.87 10*6/uL Low 4.0 - 5.2 m/uL [facility] Segmented neutrophils/100 WBC (Bld) 54 % 36 - 66 % [facility] Segs Absolute 3.00 [facility] WBC (Bld) [#/Vol] 5.7 10*3/uL [facility] Comprehensive Metabolic Pane schuyler 12-02-2022 Albumin [Mass/Vol] 3.8 g/dL 3.5 - 5.2 g/dL [facility] ALP (Bld) [Catalytic activity/Vol] 79 U/L 35 - 104 U/L [facility] ALT [Catalytic activity/Vol] 14 U/L 5 - 33 U/L [facility] Anion gap [Moles/Vol] 10 mmol/L 9 - 17 mmol/L [facility] AST [Catalytic activity/Vol] 18 U/L NINF - 32 U/L [facility] Bilirubin [Mass/Vol] 0.5 mg/dL 0.3 - 1 .2 mg/dL [facility] Calcium [Mass/Vol] 9.6 mg/dL 8.6 - 10. 4 mg/dL [facility] Chloride [Moles/Vol] 105 mmol/L 98 - 10 7 mmol/L [facility] CO2 [Moles/Vol] 26 mmol/L 20 - 31 mmol/L [facility] Creatinine [Mass/Vol] 0.53 mg/dL 0.50 - 0.90 mg/dL [facility] GFR/1.73 sq M.predicted MDRD (S/P/Bld) [Vol rate/Area] - PINF [facility] Comment on above: Effective Aug 24, 2022 These results are not intended for use in patients <18 years of age. eGFR results are calculated without a race factor using the 2020 CKD-EPI equation. Careful clinical correlation is recommended, particularly when comparing to results calculated using previous equations. The CKD-EPI equation is less accurate in patients with extremes of muscle mass, extra-renal metabolism of creatine, excessive creatine ingestion, or following therapy that affects renal tubular secretion. Glucose [Mass/Vol] 135 mg/dL High 70 - 99 mg/dL [facility] Interpretation and review of laboratory results Abnormal [facility] Potassium [Moles/Vol] 4.3 mmol/L 3.7 - 5.3 mmol/L [facility] Protein [Mass/Vol] 6.6 g/dL 6.4 - 8.3 g/dL [facility] Sodium [Moles/Vol] 141 mmol/L 135 - 144 mmol/L [facility] Urea nitrogen (BldV) [Mass/Vol] 14 mg/dL 8 - 23 mg/dL [facility] Folateon 12-02-2022 Folate 11 ng/mL 4.8 - PINF ng/mL [facility] Iron and TIBCon 12-02-2022 Iron [Mass/Vol] 81 ug/dL 37 - 145 ug/dL [facility] Iron Saturation 24 % 20 - 55 % [facility] TIBC 338 ug/dL 250 - 450 ug/dL [facility] UIBC 257 ug/dL 112 - 347 ug/dL [facility] Lipaseon 12-02-2022 Lipase [Catalytic activity/Vol] 16 U/L 13 - 60 U/L [facility] No Panel Informationon 12-02 [facility] Reticulocyteson 12-02-2022 Absolute Retic # 0.036 [facility] Retic % 0.9 % 0.5 - 2.0 % [facility] T4, Freeon 12-02-2022 Interpretation and review of laboratory results Abnormal [facility] Thyroxine, Free 1.95 ng/dL High 0.93 - 1.70 ng/dL [facility] TSH With Reflex Ft4on 2022 Interpretation and review of laboratory results Abnormal [facility] TSH Qn 0.08 m[IU]/L Low [facility] Vitamin B12on 12-02-2022 Cobalamin (Vitamin B12) [Mass/Vol] pg/mL High 232 - 1245 pg/mL [facility] Interpretation and review of laboratory results Abnormal [facility] XR WRIST RT MIN 3 Von 2021 XR WRIST RT MIN 3 V EXAM: XR WRIST RT MIN 3 V HISTORY: Pain COMPARISON: None. TECHNIQUE: 3 views of the right wrist are performed. FINDINGS: The bones are demineralized. There is no acute fracture. 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 There is mild soft tissue swelling. There is mild joint space narrowing at the wrist. IMPRESSION: Degenerative changes with soft tissue swelling. No fracture or definite bony erosion. Osteopenia. Electronically authenticated by: ALEX HUERTA Date: 2022-09-06 16:27 Normal [facility] LIPID PROFILEon 08-29-2022 CHOL-HDL RATIO NORM SEE BELOW Normal [facility] Comment on above: Result Comment: 3.3 - 4.4 LOW RISK 4.4 - 7.1 AVERAGE RISK 7.1 - 11.0 MODERATE RISK >11.0 HIGH RISK Performed By: #### C MREP #### [facility] [address] [address] [address] Kris Castillo Cholesterol [Mass/Vol] 157 mg/dL Normal <=200 [facility] Comment on above: Performed By: #### C MREP #### [facility] [address] [address] [address] Kris Castillo Cholesterol in HDL [Mass/Vol] 84 mg/dL Critically high 40-60 [facility] Comment on above: Performed By: #### C MREP #### [facility] [address] [address] [address] Kris Castillo Cholesterol in LDL [Mass/Vol] 62.4 mg/dL Normal [facility] Comment on above: Performed By: #### C MREP #### [facility] [address] [address] [address] Kris Castillo Cholesterol.total/Chol esterol in HDL [Mass ratio] 1.9 {ratio} Normal [facility] Comment on above: Performed By: #### C MREP #### [facility] [address] [place], [place] [address] Dr. Kris Castillo HDL NORMAL > or = 60 mg/dl - LOW CARDIOVASCULAR RISK <40 mg/dl - HIGH CARDIOVASCULAR RISK Normal [facility] Comment on above: Performed By: #### C MREP #### [facility] [address] [place], [place] [address] Dr. Kris Castillo LDL CALC NORMAL SEE BELOW Normal [facility] Comment on above: Result Comment: <100 mg/dl OPTIMAL 100 - 129 mg/dl NEAR OR ABOVE OPTIMAL 130 - 159 mg/dl BORDERLINE HIGH 160 - 189 mg/dl HIGH >190 mg/dl VERY HIGH Performed By: #### C MREP #### [facility] [address] [place] [address] Dr. Kris Castillo Triglyceride [Mass/Vol] 53 mg/dL Normal <=150 [facility] Comment on above: Performed By: #### C MREP #### [facility] [address] [place] [address] Dr. Kris Castillo VLDL CALC 10.6 mg/dL Normal [facility] Comment on above: Performed By: #### C MREP #### [facility] [address] [place] [address] Dr. Kris Castillo CARDIAC ROYA 3-6on 2 CK [Catalytic activity/Vol] 54 U/L Normal 26-192 [facility] Comment on above: Performed By: #### D DIM #### [facility] [address] [place] [address] Dr. Kris Castillo CK.MB [Mass/Vol] 1.12 ng/mL Normal <=3.60 [facility] Comment on above: Performed By: #### D DIM #### [facility] [address] [place] [address] Dr. Kris Castillo HSTROP 8.2 pg/mL Normal 4.0-51.3 [facility] Comment on above: Result Comment: CUT- OFF POINTS HAVE BEEN ESTABLISHED BASED ON THE FOURTH UNIVERSAL DEFINITIONS OF MYOCARDIAL INFARCTION. THE UPPER REFERENCE LIMIT (URL) OF TROPONIN, DEFINED THE 99TH PERCENTILE OF cTnI DISTRIBUTION IN A REFERENCE POPULATION, HAS BEEN CONFIRMED THE DECISION THRESHOLD FOR AL DIAGNOSIS. Performed By: #### D DIM #### [facility] [address] [place] [address] Dr. Kris Castillo CK [Catalytic activity/Vol] 57 U/L Normal 26-192 [facility] Comment on above: Performed By: #### C MREP #### [facility] [address] [place] [address] Dr. Kris Castillo CK.MB [Mass/Vol] 1.25 ng/mL Normal <=3.60 [facility] Comment on above: Performed By: #### C MREP #### [facility] [address] [address] [address] Kris Castillo HSTROP 7.3 pg/mL Normal 4.0-51.3 [facility] Comment on above: Result Comment: CUT- OFF POINTS HAVE BEEN ESTABLISHED BASED ON THE FOURTH UNIVERSAL DEFINITIONS OF MYOCARDIAL INFARCTION. THE UPPER REFERENCE LIMIT (URL) OF TROPONIN, DEFINED THE 99TH PERCENTILE OF cTnI DISTRIBUTION IN A REFERENCE POPULATION, HAS BEEN CONFIRMED THE DECISION THRESHOLD FOR AL DIAGNOSIS. Performed By: #### C MREP #### [facility] [address] [address] [address] Kris Castillo CARDIAC ROYA ADMITon 022 CK [Catalytic activity/Vol] 86 U/L Normal 26-192 [facility] Comment on above: Performed By: #### D DIM #### [facility] [address] [place] [address] Dr. Kris Castillo CK.MB [Mass/Vol] 1.65 ng/mL Normal <=3.60 [facility] Comment on above: Performed By: #### D DIM #### [facility] [address] [place] [address] Dr. Kris Castillo HSTROP 6.2 pg/mL Normal 4.0-51.3 [facility] Comment on above: Result Comment: CUT- OFF POINTS HAVE BEEN ESTABLISHED BASED ON THE FOURTH UNIVERSAL DEFINITIONS OF MYOCARDIAL INFARCTION. THE UPPER REFERENCE LIMIT (URL) OF TROPONIN, DEFINED THE 99TH PERCENTILE OF cTnI DISTRIBUTION IN A REFERENCE POPULATION, HAS BEEN CONFIRMED THE DECISION THRESHOLD FOR AL DIAGNOSIS. Performed By: #### D DIM #### [facility] [address] [place] [address] Dr. Kris Castillo RAMSES 34 ng/mL Normal 9-82 [facility] Comment on above: Performed By: #### D DIM #### [facility] [address] [place] [address] Dr. Kris Castillo CBC AUTO DIFFon 08-28-2022 BASO # 0.1 103/ul Normal 0.0-0.1 [facility] Comment on above: Performed By: #### C BC #### [facility] [address] [address] [address] Kris Castillo Basophils/100 WBC (Bld) 0.6 % Normal 0.2-2.0 [facility] Comment on above: Performed By: #### C BC #### [facility] [address] [place] [address] Dr. Kris Castillo EO # 0.3 103/ul Normal 0.0-0.7 [facility] Comment on above: Performed By: #### C BC #### [facility] [address] [place] [address] Dr. Kris Castillo Eosinophils/100 WBC (Bld) 3.8 % Normal 0.9-7.0 [facility] Comment on above: Performed By: #### C BC #### [facility] [address] [place] [address] Dr. Kris Castillo Erythrocyte distribution width (RBC) [Ratio] 16.2 % Critically high 11.0-15.0 [facility] Comment on above: Performed By: #### C BC #### [facility] [address] [place] [address] Dr. Kris Castillo Hematocrit (Bld) [Volume fraction] 34.7 % Critically low 36.0-48.0 [facility] Comment on above: Performed By: #### C BC #### [facility] [address] [place] [address] Dr. Kris Castillo Hemoglobin (Bld) [Mass/Vol] 10.8 g/dL Critically low 12.0-16.0 [facility] Comment on above: Performed By: #### C BC #### [facility] [address] [place] [address] Dr. Kris Castillo IG # 0.02 10e3/ul Normal 0.00-0.03 [facility] Comment on above: Performed By: #### C BC #### [facility] [address] [place] [address] Dr. Kris Castillo IG % 0.3 % Normal 0.0-0.5 [facility] Comment on above: Performed By: #### C BC #### [facility] [address] [place] [address] Dr. Kris Castillo LYMPH # 2.2 103/ul Normal 1.2-3.8 [facility] Comment on above: Performed By: #### C BC #### [facility] [address] [place] [address] Dr. Kris Castillo Lymphocytes/100 WBC (Bld) 27.9 % Normal 20.5-60.0 [facility] Comment on above: Performed By: #### C BC #### [facility] [address] [place] [address] Dr. Kris Castillo MANUAL DIFF REQ NO Normal [facility] Comment on above: Performed By: #### C BC #### [facility] [address] [place] [address] Dr. Kris Castillo MCH (RBC) [Entitic mass] 27.7 pg Normal 26.7-34.0 [facility] Comment on above: Performed By: #### C BC #### [facility] [address] [place] [address] Dr. Kris Castillo MCHC (RBC) [Mass/Vol] 31.1 g/dL Normal 29.9-35.2 [facility] Comment on above: Performed By: #### C BC #### [facility] [address] [place] [address] Dr. Kris Castillo MCV (RBC) [Entitic vol] 89.0 fL Normal 81.0-99.0 [facility] Comment on above: Performed By: #### C BC #### [facility] [address] [place] [address] Dr. Kris Castillo MONO # 0.6 103/ul Normal 0.3-0.8 [facility] Comment on above: Performed By: #### C BC #### [facility] [address] [place] [address] Dr. Kris Castillo Monocytes/100 WBC (Bld) 7.6 % Normal 1.7-12.0 [facility] Comment on above: Performed By: #### C BC #### [facility] [address] [place] [address] Dr. Kris Castillo NEUT # 4.7 103/ul Normal 1.4-6.5 [facility] Comment on above: Performed By: #### C BC #### [facility] [address] [place] [address] Dr. Kris Castillo Neutrophils/100 WBC (Bld) 59.8 % Normal 43.0-75.0 [facility] Comment on above: Performed By: #### C BC #### [facility] [address] [place] [address] Dr. Kris Castillo Platelet mean volume (Bld) [Entitic vol] 9.5 fL Normal 9.5-13.5 [facility] Comment on above: Performed By: #### C BC #### [facility] [address] [place] [address] Dr. Kris Castillo PLT 264 103/ul Normal 150-450 [facility] Comment on above: Performed By: #### C BC #### [facility] [address] [place] [address] Dr. Kris Castillo RBC 3.90 106/ul Critically low 4.20-5.40 [facility] Comment on above: Performed By: #### C BC #### [facility] [address] [place] [address] Dr. Kris Castillo WBC 7.9 103/ul Normal 4.0-11.0 [facility] Comment on above: Performed By: #### C BC #### [facility] [address] [place] [address] Dr. Kris Castillo [facility]on SARS-CoV-2 (COVID-19) RNA JAYY+probe Ql (Unsp spec) Not detected Normal NOT DETECTED [facility] Comment on above: Result Comment: When diagnostic testing is negative, the possibility of a false negative should be considered in the context of a patient's recent exposures and the presence of clinical signs and symptoms consistent with SARS-CoV-2. This test is not yet approved or cleared by the [place] FDA. When there are no FDA-approved or cleared tests available, and other criteria are met, FDA can make tests available under an emergency access mechanism called an Emergency Use Authorization (EUA). The EUA for this test is supported by the Plant Machin[employer] of Health and Human Service's declaration that circumstances exist to justify the emergency use of in vitro diagnostics for the detection and/or diagnosis of the virus that causes COVID-19. This EUA will remain in effect for the duration of the COVID-19 declaration justifying emergency of IVDs, unless it is terminated or revoked by the FDA (after which the test may no longer be used). Performed By: #### C VDTBH #### [facility] [address] [place] [address] Dr. Kris Castillo D-DIMERon 08-28-2022 D-DIMER 0.48 mg/L FEU Normal <=0.59 [facility] Comment on above: Performed By: #### D DIM #### [facility] [address] [place] [address] Dr. Kris Castillo D-DIMER COMMENTS SEE BELOW Normal [facility] Comment on above: Result Comment: Incr eases in D-Dimer concentration observed with thromboembolic events can be variable due to localization, size, and age of the thrombus. Therefore, a thromboembolic event cannot be diagnosed with certainty on the basis of the reference range. D-Dimers may also be elevated for a variety of disorders including: advanced age, , coronary disease, cancer, liver disease, infection, inflammation, hematoma, DIC, trauma, post-surgery, diabetes, thrombolytic or anticoagulant therapy, stress, and generalized hospitalization. Performed By: #### D DIM #### [facility] [address] [place] [address] Dr. Kris Castillo LIPID PROFILEon 08-28-2022 CHOL-HDL RATIO NORM SEE BELOW Normal [facility] Comment on above: Result Comment: 3.3 - 4.4 LOW RISK 4.4 - 7.1 AVERAGE RISK 7.1 - 11.0 MODERATE RISK >11.0 HIGH RISK Performed By: #### D DIM #### [facility] [address] [place] [address] Dr. Kris Castillo Cholesterol [Mass/Vol] 151 mg/dL Normal <=200 [facility] Comment on above: Performed By: #### D DIM #### [facility] [address] [address] [address] Kris Castillo Cholesterol in HDL [Mass/Vol] 77 mg/dL Critically high 40-60 [facility] Comment on above: Performed By: #### D DIM #### [facility] [address] [address] [address] Kris Castillo Cholesterol in LDL [Mass/Vol] 65.6 mg/dL Normal [facility] Comment on above: Performed By: #### D DIM #### [facility] [address] [address] [address] Kris Castillo Cholesterol.total/Chol esterol in HDL [Mass ratio] 2.0 {ratio} Normal [facility] Comment on above: Performed By: #### D DIM #### [facility] [address] [address] [address] Kris Castillo HDL NORMAL > or = 60 mg/dl - LOW CARDIOVASCULAR RISK <40 mg/dl - HIGH CARDIOVASCULAR RISK Normal [facility] Comment on above: Performed By: #### D DIM #### [facility] [address] [address] [address] Kris Castillo LDL CALC NORMAL SEE BELOW Normal [facility] Comment on above: Result Comment: <100 mg/dl OPTIMAL 100 - 129 mg/dl NEAR OR ABOVE OPTIMAL 130 - 159 mg/dl BORDERLINE HIGH 160 - 189 mg/dl HIGH >190 mg/dl VERY HIGH Performed By: #### D DIM #### [facility] [address] [address] [address] Kris Castillo Triglyceride [Mass/Vol] 42 mg/dL Normal <=150 [facility] Comment on above: Performed By: #### D DIM #### [facility] [address] [address] [address] Kris Castillo VLDL CALC 8.4 mg/dL Normal [facility] Comment on above: Performed By: #### D DIM #### [facility] [address] [address] [address] Kris Csatillo POINT OF CARE GLUCOSEon 10-0 Glucose [Mass/Vol] 108 mg/dL Critically high 74-106 [facility] Comment on above: Performed By: #### D DIM #### [facility] [address] [place] [address] Dr. Kris Castillo PROF 14(COMP METB)on 022 Albumin [Mass/Vol] 3.4 g/dL Normal 3.4-5.0 [facility] Comment on above: Performed By: #### D DIM #### [facility] [address] [place] [address] Dr. Kris Castillo Albumin/Globulin [Mass ratio] 0.9 {ratio} Normal [facility] Comment on above: Performed By: #### D DIM #### [facility] [address] [place] [address] Dr. Kris Castillo ALP [Catalytic activity/Vol] 88 U/L Normal 46-116 [facility] Comment on above: Performed By: #### D DIM #### [facility] [address] [place] [address] Dr. Kris Castillo ALT [Catalytic activity/Vol] 16 U/L Normal 14-59 [facility] Comment on above: Performed By: #### D DIM #### [facility] [address] [place] [address] Dr. Kris Castillo Anion gap [Moles/Vol] 9.5 mmol/L Normal [facility] Comment on above: Performed By: #### D DIM #### [facility] [address] [place] [address] Dr. Kris Castillo AST [Catalytic activity/Vol] 18 U/L Normal 15-37 [facility] Comment on above: Performed By: #### D DIM #### [facility] [address] [place] [address] Dr. Kris Castillo Bilirubin [Mass/Vol] 0.5 mg/dL Normal 0.2-1.0 [facility] Comment on above: Performed By: #### D DIM #### [facility] [address] [place] [address] Dr. Kris Castillo Calcium [Mass/Vol] 9.7 mg/dL Normal 8.5-10.1 [facility] Comment on above: Performed By: #### D DIM #### [facility] [address] [place] [address] Dr. Kris Castillo Chloride [Moles/Vol] 103 mmol/L Normal 98-107 [facility] Comment on above: Performed By: #### D DIM #### [facility] [address] [place] [address] Dr. Kris Castillo CO2 [Moles/Vol] 28.4 mmol/L Normal 21.0-32.0 [facility] Comment on above: Performed By: #### D DIM #### [facility] [address] [place] [address] Dr. Kris Castillo Creatinine [Mass/Vol] 0.78 mg/dL Normal 0.55-1.02 [facility] Comment on above: Performed By: #### D DIM #### [facility] [address] [place] [address] Dr. Kris Castillo EGFR-AF ISRAELI >60 Normal >=60 [facility] Comment on above: Performed By: #### D DIM #### [facility] [address] [place] [address] Dr. Kris Castillo EGFR-NON AF ISRAELI >60 Normal >=60 [facility] Comment on above: Performed By: #### D DIM #### [facility] [address] [place] [address] Dr. Kris Castillo Globulin (S) [Mass/Vol] 3.6 g/dL Normal [facility] Comment on above: Performed By: #### D DIM #### [facility] [address] [place] [address] Dr. Kris Castillo Glucose [Mass/Vol] 111 mg/dL Critically high 74-106 [facility] Comment on above: Performed By: #### D DIM #### [facility] [address] [place] [address] Dr. Kris Castillo Potassium [Moles/Vol] 3.9 mmol/L Normal 3.5-5.1 [facility] Comment on above: Performed By: #### D DIM #### [facility] [address] [place], [place] [address] Dr. Kris Castillo Protein [Mass/Vol] 7.0 g/dL Normal 6.4-8.2 [facility] Comment on above: Performed By: #### D DIM #### [facility] [address] [place], [place] [address] Dr. Kris Castillo Sodium [Moles/Vol] 137 mmol/L Normal 136-145 [facility] Comment on above: Performed By: #### D DIM #### [facility] [address] [place], [place] [address] Dr. Kris Castillo Urea nitrogen [Mass/Vol] 21.0 mg/dL Critically high 7.0-18.0 [facility] Comment on above: Performed By: #### D DIM #### [facility] [address] [place], [place] [address] Dr. Kris Castillo Urea nitrogen/Creatinine [Mass ratio] 26.9 mg/mg Normal [facility] Comment on above: Performed By: #### D DIM #### [facility] [address] [place], [place] [address] Dr. Kris Castillo XR CHEST 1 Von 08-28-2022 XR CHEST 1 V EXAM: XR CHEST 1 V HISTORY: CHEST PAIN, UNSPECIFIED COMPARISON: 07/25/2022 TECHNIQUE: Chest single view. FINDINGS: Lines/tubes/devices: EKG leads overlie the chest. No indwelling lines are seen. Cardiomediastinum: Heart size is stable, mildly enlarged. Stable mediastinal silhouette with aortic atherosclerosis. Vasculature: Normal. Lungs/pleura: Evaluation of the lung bases is limited by overlapping soft tissues but no consolidation, sizable effusion, or pneumothorax is demonstrated. Stable radiodense small nodule in the right midlung zone likely calcified granuloma. Bones/soft tissues: Bony thorax appears grossly intact with mild degenerative changes noted. IMPRESSION: No acute cardiopulmonary process. Stable mild cardiomegaly. Electronically authenticated by: GABRIELA MITTAL Date: 2022-08-28 02:26 Normal [facility] CULTURE URINEon 07-27-2022 CULTURE URINE Isolate 1 Escherichia coli >100,000 cfu/mL of ORGANISM 1 Escherichia coli ANTIBIOTIC M.I.C RX STATUS Ampicillin >=32 R F Ampicillin/Sulbactam >=32 R F Piperacillin/Tazobac swartz <=4 S F Cefazolin <=4 S F Ceftazidime <=1 S F Ceftriaxone <=1 S F Ertapenem <=0.5 S F Imipenem <=0.25 S F Amikacin <=2 S F Gentamicin <=1 S F Tobramycin <=1 S F Ciprofloxacin >=4 R F Levofloxacin >=8 R F Nitrofurantoin <=16 S F Trimethoprim/Sulfame thoxazole >=320 R F Normal [facility] Comment on above: Performed By: #### D DIM #### [facility] [address] [place] [address] Dr. Kris Castillo ACETONE SERUMon 07-25-2022 ACETONE Negative Normal NEGATIVE [facility] Comment on above: Performed By: #### C MREP #### [facility] [address] [place] [address] Dr. Kris Castillo BNPon 07-25-2022 Natriuretic peptide B (Bld) [Mass/Vol] 111.0 pg/mL Normal <=900.0 [facility] Comment on above: Performed By: #### C MREP #### [facility] [address] [place] [address] Dr. Kris Castillo CARDIAC ROYA ADMITon 022 CK [Catalytic activity/Vol] 61 U/L Normal 26-192 [facility] Comment on above: Performed By: #### C MREP #### [facility] [address] [place] [address] Dr. Kris Castillo CK.MB [Mass/Vol] 1.55 ng/mL Normal <=3.60 [facility] Comment on above: Performed By: #### C MREP #### [facility] [address] [place] [address] Dr. Kris Castillo HSTROP 7.1 pg/mL Normal 4.0-51.3 [facility] Comment on above: Result Comment: CUT- OFF POINTS HAVE BEEN ESTABLISHED BASED ON THE FOURTH UNIVERSAL DEFINITIONS OF MYOCARDIAL INFARCTION. THE UPPER REFERENCE LIMIT (URL) OF TROPONIN, DEFINED THE 99TH PERCENTILE OF cTnI DISTRIBUTION IN A REFERENCE POPULATION, HAS BEEN CONFIRMED THE DECISION THRESHOLD FOR AL DIAGNOSIS. Performed By: #### C MREP #### [facility] [address] [place] [address] Dr. Kris Castillo RAMSES 29 ng/mL Normal 9-82 [facility] Comment on above: Performed By: #### C MREP #### [facility] [address] [place] [address] Dr. Kris Castillo CBC AUTO DIFFon 07-25-2022 BASO # 0.1 103/ul Normal 0.0-0.1 [facility] Comment on above: Performed By: #### C BC #### [facility] [address] [place] [address] Dr. Kris Castillo Basophils/100 WBC (Bld) 0.6 % Normal 0.2-2.0 [facility] Comment on above: Performed By: #### C BC #### [facility] [address] [place] [address] Dr. Kris Castillo EO # 0.2 103/ul Normal 0.0-0.7 [facility] Comment on above: Performed By: #### C BC #### [facility] [address] [place] [address] Dr. Kris Castillo Eosinophils/100 WBC (Bld) 2.6 % Normal 0.9-7.0 [facility] Comment on above: Performed By: #### C BC #### [facility] [address] [place] [address] Dr. Kris Castillo Erythrocyte distribution width (RBC) [Ratio] 17.4 % Critically high 11.0-15.0 [facility] Comment on above: Performed By: #### C BC #### [facility] [address] [place] [address] Dr. Kris Castillo Hematocrit (Bld) [Volume fraction] 34.5 % Critically low 36.0-48.0 [facility] Comment on above: Performed By: #### C BC #### [facility] [address] [place] [address] Dr. Kris Castillo Hemoglobin (Bld) [Mass/Vol] 11.0 g/dL Critically low 12.0-16.0 [facility] Comment on above: Performed By: #### C BC #### [facility] [address] [place] [address] Dr. Kris Castillo IG # 0.03 10e3/ul Normal 0.00-0.03 [facility] Comment on above: Performed By: #### C BC #### [facility] [address] [place] [address] Dr. Kris Castillo IG % 0.3 % Normal 0.0-0.5 [facility] Comment on above: Performed By: #### C BC #### [facility] [address] [place] [address] Dr. Kris Castillo LYMPH # 2.0 103/ul Normal 1.2-3.8 [facility] Comment on above: Performed By: #### C BC #### [facility] [address] [place] [address] Dr. Kris Castillo Lymphocytes/100 WBC (Bld) 21.8 % Normal 20.5-60.0 [facility] Comment on above: Performed By: #### C BC #### [facility] [address] [place] [address] Dr. Kris Castillo MANUAL DIFF REQ NO Normal [facility] Comment on above: Performed By: #### C BC #### [facility] [address] [place] [address] Dr. Kris Castillo MCH (RBC) [Entitic mass] 27.8 pg Normal 26.7-34.0 [facility] Comment on above: Performed By: #### C BC #### [facility] [address] [place] [address] Dr. Kris Castillo MCHC (RBC) [Mass/Vol] 31.9 g/dL Normal 29.9-35.2 [facility] Comment on above: Performed By: #### C BC #### [facility] [address] [place] [address] Dr. Kris Castillo MCV (RBC) [Entitic vol] 87.3 fL Normal 81.0-99.0 [facility] Comment on above: Performed By: #### C BC #### [facility] [address] [address] [address] Kris Castillo MONO # 0.5 103/ul Normal 0.3-0.8 [facility] Comment on above: Performed By: #### C BC #### [facility] [address] [address] [address] Kris Castillo Monocytes/100 WBC (Bld) 5.9 % Normal 1.7-12.0 [facility] Comment on above: Performed By: #### C BC #### [facility] [address] [address] [address] Kris Castillo NEUT # 6.2 103/ul Normal 1.4-6.5 [facility] Comment on above: Performed By: #### C BC #### [facility] [address] [place] [address] Dr. Kris Castillo Neutrophils/100 WBC (Bld) 68.8 % Normal 43.0-75.0 [facility] Comment on above: Performed By: #### C BC #### [facility] [address] [address] [address] Kris Castillo Platelet mean volume (Bld) [Entitic vol] 9.5 fL Normal 9.5-13.5 [facility] Comment on above: Performed By: #### C BC #### [facility] [address] [address] [address] Kris Castillo PLT 231 103/ul Normal 150-450 [facility] Comment on above: Performed By: #### C BC #### [facility] [address] [address] [address] Kris Castillo RBC 3.95 106/ul Critically low 4.20-5.40 [facility] Comment on above: Performed By: #### C BC #### [facility] [address] [address] [address] Kris Castillo WBC 9.0 103/ul Normal 4.0-11.0 [facility] Comment on above: Performed By: #### C BC #### [facility] [address] [address] [address] HEAD WO CONon 07-25-2022 CT HEAD WO CON EXAMINATION: CT HEAD WO CON HISTORY: Dizziness COMPARISON: MR brain 03/14/2021. TECHNIQUE: CT examination of the head without IV contrast. Dose reduction techniques were achieved by using automated exposure control and/or adjustment of mA and/or kV according to patient size and/or use of iterative reconstruction technique. FINDINGS: Calvarium/skull base: No evidence of acute fracture or destructive lesion. Mastoids and middle ears demonstrate no substantial mucosal disease. Bilateral cheesh-na ocular lens replacement.Nonspeci fic calcifications are present along the superior aspect of the left orbit along the superficial soft tissues. These are likely present on MR from 2020 and are of undetermined etiology and significance. Paranasal sinuses: No air fluid levels. Brain: No acute intracranial hemorrhage. No acute large vascular territory infarct. Redemonstration of partially calcified dural based mass along the right parietal convexity measuring approximately 0.8 x 1.3 x 0.7 cm consistent with known meningioma. There is no mass effect on adjacent brain parenchyma. No hydrocephalus. Intracranial atherosclerosis. IMPRESSION: 1. No acute large vascular territory infarct or acute intracranial hemorrhage. If there is clinical concern for acute ischemia recommend MRI brain for further evaluation. 2. Stable appearance of right parietal convexity meningioma without mass effect on adjacent brain parenchyma. Electronically authenticated by: ASTRID RODRIGUEZ Date: 2022-07-25 12:48 Normal [facility] ER URINE PROFILEon 2 Bilirubin Ql (U) Negative Normal NEGATIVE [facility] Comment on above: Performed By: #### U MICRO, ERUR #### [facility] [address] [place] [address] Dr. Kris Castillo Clarity (U) CLEAR Normal CLEAR [facility] Comment on above: Performed By: #### U MICRO, ERUR #### [facility] [address] [address] [address] Kris Castillo Color (U) LT. YELLOW Normal YELLOW [facility] Comment on above: Performed By: #### U MICRO, ERUR #### [facility] [address] [address] [address] Kris DOMINGUEZ A micrscopic examination will be performed if indicated. Normal [facility] Comment on above: Performed By: #### U MICRO, ERUR #### [facility] [address] [address] [address] Kris Castillo Glucose Ql (U) Negative Normal NEGATIVE [facility] Comment on above: Performed By: #### U MICRO, ERUR #### [facility] [address] [address] [address] Kris Castillo Hemoglobin Ql (U) Negative Normal NEGATIVE [facility] Comment on above: Performed By: #### U MICRO, ERUR #### [facility] [address] [address] [address] Kris Castillo Ketones Ql (U) Negative Normal NEGATIVE [facility] Comment on above: Performed By: #### U MICRO, ERUR #### [facility] [address] [place] [address] Dr. Kris Castillo LEUKOCYTES SMALL Abnormal NEGATIVE [facility] Comment on above: Performed By: #### U MICRO, ERUR #### [facility] [address] [address] [address] Kris Castillo Nitrite Ql (U) Negative Normal NEGATIVE [facility] Comment on above: Performed By: #### U MICRO, ERUR #### [facility] [address] [place] [address] Dr. Kris Castillo pH (U) 6.0 [pH] Normal 5-9 [facility] Comment on above: Performed By: #### U MICRO, ERUR #### [facility] [address] [place] [address] Dr. Kris Castillo SPEC GRAVITY <=1.005 Abnormal 1.005-<=1.02 5 [facility] Comment on above: Performed By: #### U MICRO, ERUR #### [facility] [address] [place] [address] Dr. Kris Castillo UA PROTEIN Negative Normal NEGATIVE/ TRACE [facility] Comment on above: Performed By: #### U MICRO, ERUR #### [facility] [address] [address] [address] Kris Castillo UR MICRO IND INDICATED Normal [facility] Comment on above: Performed By: #### U MICRO, ERUR #### [facility] [address] [place] [address] Dr. Kris Castillo Urobilinogen Qn (U) 0.2 {Yaritza'U}/dL Normal 0.2 - 1. 0 [facility] Comment on above: Performed By: #### U MICRO, ERUR #### [facility] [address] [place] [address] Dr. Kris Castillo PH VENOUS BLOODon 07-25-2022 PCO2 VENOUS 49.1 mmHg Normal 40.0-52.0 [facility] Comment on above: Performed By: #### P T, PTT #### [facility] [address] [place] [address] Dr. Kris Castillo pH VENOUS 7.320 Critically low 7.330-7.430 [facility] Comment on above: Performed By: #### P T, PTT #### [facility] [address] [place] [address] Dr. Kris Castillo PROF 14(COMP METB)on 022 Albumin [Mass/Vol] 3.5 g/dL Normal 3.4-5.0 [facility] Comment on above: Performed By: #### C MREP #### [facility] [address] [place] [address] Dr. Kris Castillo Albumin/Globulin [Mass ratio] 1.0 {ratio} Normal [facility] Comment on above: Performed By: #### C MREP #### [facility] [address] [place] [address] Dr. Kris Castillo ALP [Catalytic activity/Vol] 82 U/L Normal 46-116 [facility] Comment on above: Performed By: #### C MREP #### [facility] [address] [place] [address] Dr. Kris Castillo ALT [Catalytic activity/Vol] 18 U/L Normal 14-59 [facility] Comment on above: Performed By: #### C MREP #### [facility] [address] [address] [address] Kris Castillo Anion gap [Moles/Vol] 15.9 mmol/L Normal [facility] Comment on above: Performed By: #### C MREP #### [facility] [address] [address] [address] Kris Castillo AST [Catalytic activity/Vol] 14 U/L Critically low 15-37 [facility] Comment on above: Performed By: #### C MREP #### [facility] [address] [address] [address] Kris Castillo Bilirubin [Mass/Vol] 0.4 mg/dL Normal 0.2-1.0 [facility] Comment on above: Performed By: #### C MREP #### [facility] [address] [place] [address] Dr. Kris Castillo Calcium [Mass/Vol] 8.6 mg/dL Normal 8.5-10.1 [facility] Comment on above: Performed By: #### C MREP #### [facility] [address] [place] [address] Dr. Kris Castillo Chloride [Moles/Vol] 102 mmol/L Normal 98-107 [facility] Comment on above: Performed By: #### C MREP #### [facility] [address] [place] [address] Dr. Kris Castillo CO2 [Moles/Vol] 22.7 mmol/L Normal 21.0-32.0 [facility] Comment on above: Performed By: #### C MREP #### [facility] [address] [place] [address] Dr. Kris Castillo Creatinine [Mass/Vol] 0.63 mg/dL Normal 0.55-1.02 [facility] Comment on above: Performed By: #### C MREP #### [facility] [address] [place] [address] Dr. Kris Castillo EGFR-AF ISRAELI >60 Normal >=60 [facility] Comment on above: Performed By: #### C MREP #### [facility] [address] [place] [address] Dr. Kris Castillo EGFR-NON AF ISRAELI >60 Normal >=60 [facility] Comment on above: Performed By: #### C MREP #### [facility] [address] [place] [address] Dr. Kris Castillo Globulin (S) [Mass/Vol] 3.4 g/dL Normal [facility] Comment on above: Performed By: #### C MREP #### [facility] [address] [address] [address] Kris Castillo Glucose [Mass/Vol] 92 mg/dL Normal 74-106 [facility] Comment on above: Performed By: #### C MREP #### [facility] [address] [place] [address] Dr. Kris Castillo Potassium [Moles/Vol] 3.6 mmol/L Normal 3.5-5.1 [facility] Comment on above: Performed By: #### C MREP #### [facility] [address] [place] [address] Dr. Kris Castillo Protein [Mass/Vol] 6.9 g/dL Normal 6.4-8.2 [facility] Comment on above: Performed By: #### C MREP #### [facility] [address] [place] [address] Dr. Kris Castillo Sodium [Moles/Vol] 137 mmol/L Normal 136-145 [facility] Comment on above: Performed By: #### C MREP #### [facility] [address] [place] [address] Dr. Kris Castillo Urea nitrogen [Mass/Vol] 24.0 mg/dL Critically high 7.0-18.0 [facility] Comment on above: Performed By: #### C MREP #### [facility] [address] [place] [address] Dr. Kris Castillo Urea nitrogen/Creatinine [Mass ratio] 38.1 mg/mg Normal [facility] Comment on above: Performed By: #### C MREP #### [facility] [address] [place] [address] Dr. Kris Castillo PROTIMEon 07-25-2022 INR Coag (PPP) [Relative time] 1.01 {INR} Normal [facility] Comment on above: Performed By: #### P T, PTT #### [facility] [address] [place] [address] Dr. Kris Castillo INR GUIDELINES SEE BELOW Normal [facility] Comment on above: Result Comment: ISAAC RED INR: 2.0 - 3.0 CONDITIONS NOT LISTED BELOW 2.5 - 3.5 FOR PROSTHETIC HEART VALVE REPLACEMENT 2.5 - 3.5 RECURRENT THROMBOSIS Performed By: #### P T, PTT #### [facility] [address] [place] [address] Dr. Kris Castillo PT Coag (PPP) [Time] 10.9 s Normal 9.0-11.6 [facility] Comment on above: Performed By: #### P T, PTT #### [facility] [address] [place] [address] Dr. Kris Castillo PTTon 07-25-2022 aPTT Coag (Bld) [Time] 27.6 s Normal 22.3-36.2 [facility] Comment on above: Performed By: #### P T, PTT #### [facility] [address] [place] [address] Dr. Kris Castillo SARS-CoV-2 (COVID-19) RNA NA A+probe Ql (Resp)on 07-25-2022 SARS-CoV-2 (COVID-19) RNA JAYY+probe Ql (Unsp spec) Negative [facility] Other URINE MICROSCOPIC ONLYon BACTERIA MODERATE Abnormal NONE SEEN [facility] Comment on above: Performed By: #### U MICRO, ERUR #### [facility] [address] [place] [address] Dr. Kirs Castillo Bacteria identified Cx Nom (U) INDICATED Normal [facility] Comment on above: Performed By: #### U MICRO, ERUR #### [facility] [address] [place] [address] Dr. Kris Castillo CAST NONE SEEN Normal NONE SEEN [facility] Comment on above: Performed By: #### U MICRO, ERUR #### [facility] [address] [address] [address] Kris Castillo Crystals LM Nom (Urine sed) NONE SEEN Normal NONE SEEN [facility] Comment on above: Performed By: #### U MICRO, ERUR #### [facility] [address] [address] [address] Kris Castillo Epithelial cells LM Ql (Urine sed) FEW Abnormal NONE SEEN /RARE [facility] Comment on above: Performed By: #### U MICRO, ERUR #### [facility] [address] [address] [address] Kris Castillo MUCOUS NONE SEEN Normal NONE SEEN [facility] Comment on above: Performed By: #### U MICRO, ERUR #### [facility] [address] [place] [address] Dr. Kris Castillo RBC 0-2 Normal 0-2 [facility] Comment on above: Performed By: #### U MICRO, ERUR #### [facility] [address] [address] [address] Kris Castillo WBC 2-5 Abnormal NONE SEEN [facility] Comment on above: Performed By: #### U MICRO, ERUR #### [facility] [address] [address] [address] Kris Castillo XR CHEST 1 Von 07-25-2022 XR CHEST 1 V EXAM: XR CHEST 1 V, 07/25/2022 HISTORY: Dizziness COMPARISON: Previous x-ray from 03/17/2022 TECHNIQUE: Portable AP upright x-ray of the chest. FINDINGS: Mild cardiac enlargement. Mild atherosclerotic calcification of the aortic arch. No focal consolidation or evidence of pleural effusion. Unremarkable bony structures. IMPRESSION: Mild cardiac enlargement. Clear lungs. Electronically authenticated by: BILL JONES Date: 2022-07-25 12:52 Normal [facility] CBC Auto Differentialon 05- Absolute Eos # 0.00 [facility] Heal th Absolute Lymph # 1.40 [facility] alth Absolute [place] # 0.30 [facility] Basophils (Bld) [#/Vol] 0.10 10*3/uL [facility] Basophils/100 WBC (Bld) 1 % 0 - 2 % [facility] Eosinophils/100 WBC (Bld) 0 % 0 - 4 % [facility] Hematocrit (Bld) [Volume fraction] 35.2 % Low 36 - 46 % [facility] Hemoglobin.gastrointes tinal spec 1 Ql (Stl) 11.2 g/dL Low 12.0 - 16.0 g/dL [facility] Interpretation and review of laboratory results Abnormal [facility] Lymphocytes/100 WBC (Bld) 14 % Low 24 - 44 % [facility] MCH (RBC) [Entitic mass] 27.7 pg 26 - 34 pg [facility] MCHC (RBC) [Mass/Vol] 31.9 g/dL 31 - 37 g/dL M [facility] MCV (RBC) [Entitic vol] 86.8 fL 80 - 100 fL [facility] Monocytes/100 WBC (Bld) 3 % 1 - 7 % [facility] Platelet distribution width (Bld) [Ratio] 16.5 % High 11.5 - 14.9 % [facility] Platelet mean volume (Bld) [Entitic vol] 6.8 fL 6.0 - 12.0 fL [facility] Platelets (Bld) [#/Vol] 290 10*3/uL [facility] RBC (Bld) [#/Vol] 4.06 10*6/uL 4.0 - 5.2 m/uL [facility] Segmented neutrophils/100 WBC (Bld) 82 % High 36 - 66 % [facility] Segs Absolute 8.50 [facility] h WBC (Bld) [#/Vol] 10.3 10*3/uL [facility] CBC with Auto Differentialon 04-07-2022 Absolute Eos # 0.00 [facility] th Absolute Lymph # 1.40 [facility] alth Absolute [place] # 0.30 [facility] lth Basophils (Bld) [#/Vol] 0.10 10*3/uL [facility] Basophils/100 WBC (Bld) 1 % 0 - 2 % [facility] Eosinophils/100 WBC (Bld) 0 % 0 - 4 % [facility] Hematocrit (Bld) [Volume fraction] 35.2 % Low 36 - 46 % [facility] Hemoglobin.gastrointes tinal spec 1 Ql (Stl) 11.2 g/dL Low 12.0 - 16.0 g/dL [facility] Interpretation and review of laboratory results Abnormal [facility] Lymphocytes/100 WBC (Bld) 14 % Low 24 - 44 % [facility] MCH (RBC) [Entitic mass] 27.7 pg 26 - 34 pg [facility] MCHC (RBC) [Mass/Vol] 31.9 g/dL 31 - 37 g/dL [facility] MCV (RBC) [Entitic vol] 86.8 fL 80 - 100 fL [facility] Monocytes/100 WBC (Bld) 3 % 1 - 7 % [facility] Platelet distribution width (Bld) [Ratio] 16.5 % High 11.5 - 14.9 % [facility] Platelet mean volume (Bld) [Entitic vol] 6.8 fL 6.0 - 12.0 fL [facility] Platelets (Bld) [#/Vol] 290 10*3/uL [facility] RBC (Bld) [#/Vol] 4.06 10*6/uL 4.0 - 5.2 m/uL [facility] Segmented neutrophils/100 WBC (Bld) 82 % High 36 - 66 % [facility] Segs [facility].50 [facility] (Bld) [#/Vol] 10.3 10*3/uL [facility] Iron And TIBCon 04-07-2022 Interpretation and review of laboratory results Abnormal [facility] Iron [Mass/Vol] 34 ug/dL Low 37 - 145 ug/dL [facility] Iron Saturation 8 % Low 20 - 55 % [facility] TIBC 413 ug/dL 250 - 450 ug/dL [facility] UIBC 379 ug/dL High 112 - 347 ug/dL [facility] COVID Quick Testingon 2021 Result Negative [facility] Other Quick Fluon 04-06-2022 FLUAV Ab CF (S) [Titer] Negative [facility] Other FLUBV Ab CF (S) [Titer] Negative [facility] Other Laboratory - Microbiology an d Antimicrobial susceptibilityon 09-17-2021 SARS-CoV-2 (COVID-19) RNA JAYY+probe Ql (Unsp spec) -[address] Work Phone: No Panel Informationon 09-17 18\S\18 Normal 9-23 [facility] [address] [place] Work Phone: 27.4\S\27.4 Normal 25.1-36.5 [facility] [address] [place] Work Phone: Comment on above: PERFORMED BY:[address] [address] [address] [place], [place] [id number] MEDICAL DIRECTORKIA MORE M.D. 1.1\S\1.1 Normal [facility] [address] [place] Work Phone: Comment on above: INR Therapeutic Rang e A) Pre- and Peroperative OAT started two weeks before surgery. NOT HIP SURGERY: 1.5 - 2.5 HIP SURGERY: 2 - 3 B) Primary and secondary prevention of venous THROMBOSIS: 2 - 3 C) Active venous thrombosis, pulmonary embolism and prevention of recurrent venous thrombosis: 2 - 3 D) Prevention of arterial thromboembolism including patients with mechanical heart valves: 3 - 4.5 12.5\S\12.5 Normal 9.0-12.9 [facility] [address] [place] Work Phone: 24.9\S\24.9 Normal 22.0-30.0 [facility] [address] [place] Work Phone: 106\S\106 Normal 95-114 [facility] [address] [place] Work Phone: 3.8\S\3.8 Normal 3.5-5.1 [facility] [address] [place] Work Phone: 140\S\140 Normal 136-146 [facility] [address] [place] Work Phone: [facility] [address] [place] Work Phone: > 60 Normal [facility] [address] [place] Work Phone: Comment on above: GFR estimated refere nce range: According to KDOQI guidelines, <60 ml/min/1.73m2 is sufficient to diagnose a patient with chronic kidney disease.PERFORMED BY:[facility] [place], [place] [id number] MEDICAL DIRECTORKIA MORE M.D. 0.57\S\0.57 Normal 0.44-1.03 -[facility] [address] [place] Work Phone: 46.1\S\46.1 Normal . [facility] [address] [place] Work Phone: 7.2\S\7.2 Normal . [facility] [address] [place] Work Phone: 267\S\267 Normal 150-450 [facility] [address] [place] Work Phone: 20.2\S\20.2 above high threshold 11.9-15.3 [facility] [address] [place] Work Phone: 30.4\S\30.4 below low threshold 32.0-35.0 [facility] [address] [place] Work Phone: 20.9\S\20.9 below low threshold 24.7-34.3 [facility] [address] [place] Work Phone: 2.1\S\2.1 Normal 1.8-7.7 [facility] [address] [place] Work Phone: 0.0\S\0.0 Normal 0-0.5 [facility] [address] [place] Work Phone: 1.9\S\1.9 Normal 1.00-4.8 [facility] [address] [place] Work Phone: 4.5\S\4.5 Normal . [facility] [address] [place] Work Phone: 40.3\S\40.3 Normal . [facility] [address] [place] Work Phone: Moderate Normal [facility] [address] [place] Work Phone: 0.1\S\0.1 Normal 0.0-0.2 [facility] [address] [place] Work Phone: 0.2\S\0.2 Normal 0.0-0.45 -[facility] [address] [place] Work Phone: 0.3\S\0.3 Normal 0.0-0.8 [facility] [address] [place] Work Phone: Normal Normal Normal [facility] [address] [place] Work Phone: Comment on above: PERFORMED BY:[address] [address] [address] [place], [place] [id number] MEDICAL DIRECTORKIA MORE M.D. Slight Normal [facility] [address] [place] Work Phone: 68.8\S\68.8 below low threshold 80-100 [facility] [address] [place] Work Phone: 26.3\S\26.3 below low threshold 34.0-46.4 [facility] [address] [place] Work Phone: 8.0\S\8.0 below low threshold 11.8-15.4 [facility] [address] [place] Work Phone: 3.82\S\3.82 Normal 3.60-5.00 [facility] [address] [place] Work Phone: 4.6\S\4.6 Normal 3.8-11.6 [facility] [address] [place] Work Phone: [facility] [address] [place] Work Phone: Laboratory - Chemistry and C hemistry - challengeon 09-09-2021 Cholesterol [Mass/Vol] 164\S\164 Normal 140-[address] Work Phone: Comment on above: Chol less than 200 m g/dl low risk Chol 201-239 mg/dl borderline risk Chol 240 mg/dl and greater high risk Cholesterol in LDL [Mass/Vol] 90\S\90 Normal 0-[address] Work Phone: Comment on above: LDL ATP III CLASSIFI CATION LDL less than 100 mg/dL Optimal LDL 100-129 mg/dL Near or above optimal LDL 130-159 mg/dL Borderline high LDL 160-189 mg/dL High LDL greater than 189 mg/dL Very high Laboratory - Microbiology an d Antimicrobial susceptibilityon 09-09-2021 SARS-CoV-2 (COVID-19) RNA JAYY+probe Ql (Unsp spec) [address] Work Phone: No Panel Informationon 09-09 29.7\S\29.7 Normal 25.1-36.[address] Work Phone: Comment on above: PERFORMED BY:[address] [address] [address] [place], [place] [id number] MEDICAL DIRECTORKIA MORE M.D. 1.2\S\1.[address] Work Phone: Comment on above: INR Therapeutic Rang e A) Pre- and Peroperative OAT started two weeks before surgery. NOT HIP SURGERY: 1.5 - 2.5 HIP SURGERY: 2 - 3 B) Primary and secondary prevention of venous THROMBOSIS: 2 - 3 C) Active venous thrombosis, pulmonary embolism and prevention of recurrent venous thrombosis: 2 - 3 D) Prevention of arterial thromboembolism including patients with mechanical heart valves: 3 - 4.5 13.3\S\13.3 above high threshold 9.0-12.[address] Work Phone: 24.8\S\24.8 Normal 22.0-30.0 -[facility] [address] [place] Work Phone: 106\S\106 Normal 95-114 -[facility] [address] [place] Work Phone: 4.0\S\4.0 Normal 3.5-5.1 -[facility] [address] [place] Work Phone: 140\S\140 Normal 136-146 -[facility] [address] [place] Work Phone: Slight Normal -[facility] [address] [place] Work Phone: Comment on above: PERFORMED BY:[facility] [id number] MEDICAL DIRECTORKIA MORE M.D. Normal Normal Normal -[facility] [address] [place] Work Phone: Moderate Normal -[facility] [address] [place] Work Phone: 0.1\S\0.1 Normal 0.0-0.2 -[facility] [address] [place] Work Phone: 0.3\S\0.3 Normal 0.0-0.45 -[facility] [address] [place] Work Phone: 0.4\S\0.4 Normal 0.0-0.8 -[facility] [address] [place] Work Phone: 2.1\S\2.1 Normal 1.00-4.8 -[facility] [address] [place] Work Phone: 2.6\S\2.6 Normal 1.8-7.7 -[facility] [address] [place] Work Phone: Comment on above: PERFORMED BY:[facility] [place], [place] [id number] MEDICAL DIRECTORKIA MORE M.D. 0.0\S\0.0 Normal 0-0.5 -[facility] [address] [place] Work Phone: 1.1\S\1.1 Normal . -[facility] [address] [place] Work Phone: 5.3\S\5.3 Normal . -[facility] [address] [place] Work Phone: 7.2\S\7.2 Normal . -[facility] [address] [place] Work Phone: 39.2\S\39.2 Normal . -[facility] [address] [place] Work Phone: 47.2\S\47.2 Normal . -[facility] [address] [place] Work Phone: 6.8\S\6.8 Normal 6.3-10.7 -[facility] [address] [place] Work Phone: 332\S\332 Normal 150-450 -[facility] [address] [place] Work Phone: 20.1\S\20.1 above high threshold 11.9-15.3 -[facility] [address] [place] Work Phone: 29.8\S\29.8 below low threshold 32.0-35.0 -[facility] [address] [place] Work Phone: 20.7\S\20.7 below low threshold 24.7-34.3 -[facility] [address] [place] Work Phone: 69.2\S\69.2 below low threshold 80-100 -[facility] [address] [place] Work Phone: 27.8\S\27.8 below low threshold 34.0-46.4 -[facility] [address] [place] Work Phone: 8.3\S\8.3 below low threshold 11.8-15.4 [facility] [employer] [address] [place] Work Phone: 4.01\S\4.01 Normal 3.60-5.00 [facility] [employer] [address] [place] Work Phone: 5.5\S\5.5 Normal 3.8-11.6 [facility] [employer] [address] [place] Work Phone: 11\S\11 Normal [facility] [employer] [address] [employer] Work Phone: 57\S\57 Normal 35-149 [facility] [employer] Work Phone: Comment on above: TRIG ATP III CLASSIF ICATION TRIG less than 150 mg/dL Normal TRIG 150-199 mg/dL Borderline high TRIG 200-500 mg/dL High TRIG greater than 500 mg/dL Very high Standard traceable to the Center for Disease Conrtrol and Prevention (CDC) test method. 63\S\63 Normal 35-85 [facility] [employer] Work Phone: Comment on above: HDL CHOL ATP-III CLA SSIFICATION Cardiovascular Risk HDL > or equal to 60 mg/dL LOW HDL < 40 mg/dL HIGH > 60 Normal [facility] [employer] Work Phone: Comment on above: GFR estimated refere nce range: According to KDOQI guidelines, <60 ml/min/1.73m2 is sufficient to diagnose a patient with chronic kidney disease. 0.56\S\0.56 Normal 0.44-1.03 [facility] [employer] [address] [employer] Work Phone: 19\S\19 Normal 9-23 [facility] [employer] [address] [place] Work Phone: [facility] [employer] [address] [place] Work Phone: [facility] [employer] [address] [employer] Work Phone: Office Visit (Cardiology)on 09-02-2021 Follow-up visit Diagnoses/Problems Assessed Chest pain (786.50) (R07.9) Abnormal stress test (794.39) (R94.39) Diabetes mellitus (250.00) (E11.9) Essential hypertension, benign (401.1) (I10) Hyperlipidemia (272.4) (E78.5) Sleep apnea (780.57) (G47.30) Never a smoker Class 1 obesity with body mass index (BMI) of 34.0 to 34.9 in adult (278.00,V85.34) (E66.9,Z68.34) Orders Abnormal stress test, Chest pain Hospital Evaluation and Treatment Evaluate AND Treat [place] diagnostic staff to initiate [facility] preop orders for left cardiac cath Status: Hold For - Scheduling,Retrospec tive Authorization Requested for: 02Sep2021 Electrocardiogram 12 Lead; Status:Active - Retrospective Authorization; Requested for:02Sep2021; SocHx: Never a smoker Tobacco Use Screening; Status:Complete; Done: 02Sep2021 Patient Instructions By signing my name below, I, Marla Suresh LPN ,[employer], attest that this documentation has been prepared under the direction and in the presence of Dr. Atul Frazier DO. All medical record entries made by the Scribe were at my direction and personally dictated by me. I have reviewed the chart and agree that the record accurately reflects my personal performance of the history, physical exam, discussion and plan. Follow-up after testing completed Chief Complaint MARAH SILVA is being seen for a consultation for abnormal test(s) results. Patient is a 71-year-old female seen in cardiology consultation at the request of her primary care physician for further assessment regarding chest pain, pressure with increasing frequency that occurs with exertion for the past 1 month. She underwent stress perfusion imaging, details of that outside report are reviewed revealing distal anteroapical perfusion date defect/ischemia with normal left ventricular function. She has a history of prior heart catheterization in [place] remotely that revealed normal coronary arteries. I had seen her a couple times in 2014 -. Her comorbidities include diabetes, controlled hypertension, hyperlipidemia, obesity and obstructive sleep apnea. ECG reveals sinus rhythm with right bundle branch block. And importantly she is not a smoker Her discomfort is classically described as retrosternal pressure and heaviness radiating to her back with less exertion now occurring nearly on a daily basis. Informed decision-making process, risk benefits regarding invasive assessment via cardiac catheterization possible revascularization are reviewed with the patient she is willing to proceed and also offered conservative based medical therapies. Surgical History Problems History of Cholecystectomy History of Colonoscopy History of Ear surgery History of Ostectomy of calcaneus for spur History of Partial hysterectomy History of Tonsillectomy Current Meds Medication NameInstruction Acetaminophen Extra Strength CAPSTAKE 2 CAPSULES 4 TIMES DAILY PRN Advair Diskus 250-50 MCG/DOSE Inhalation Aerosol Powder Breath ActivatedINHALE 1 PUFF EVERY 12 HOURS. Albuterol 90 MCG/ACT AERSINHALE 1 TO 2 PUFFS EVERY 4 TO 6 HOURS NEEDED AND DIRECTED. amLODIPine Besylate 2.5 MG Oral TabletTAKE 1 TABLET DAILY. Aspirin EC 81 MG Oral Tablet Delayed ReleaseTAKE 1 TABLET DAILY DIRECTED. Baclofen 10 MG Oral TabletTAKE 1 TABLET 3 TIMES DAILY NEEDED FOR MUSCLE SPASM. CeleBREX 200 MG Oral CapsuleTAKE 1 CAPSULE TWICE DAILY WITH FOOD. Co Q-10 200 MG Oral CapsuleTAKE DIRECTED. Ipratropium-Albutero l 0.5-2.5 (3) MG/3ML Inhalation SolutionUSE 1 UNIT DOSE IN NEBULIZER 4 TIMES DAILY. Levothyroxine Sodium 100 MCG Oral TabletTAKE 1 TABLET DAILY DIRECTED. Lipitor 10 MG Oral TabletTAKE 1 TABLET AT BEDTIME. metFORMIN HCl - 500 MG Oral Tablettake 2 tabets in the am and 1 tablet in the pm Mometasone Furoate 50 MCG/ACT Nasal SuspensionUSE 2 SPRAYS IN EACH NOSTRIL ONCE DAILY Daokcb1W AT NIGHT Pantoprazole Sodium 40 MG Oral Tablet Delayed ReleaseTAKE 1 TABLET DAILY. Ramipril 10 MG Oral CapsuleTAKE 1 CAPSULE ONCE DAILY. Sucralfate 1 GM Oral TabletTAKE 1 TABLET 4 TIMES DAILY. traMADol HCl - 50 MG Oral TabletTake 1 tablet twice daily Allergies Medication Bactrim TABS Recorded By: Farzad Magallon; 09/02/2021 10:42:10 AM Cetirizine HCl TABS Recorded By: Farzad Magallon; 09/02/2021 10:42:10 AM Ciprofloxacin HCl TABS Recorded By: Farzad Magallon; 09/02/2021 10:42:10 AM morphine Recorded By: Farzad Magallon; 09/02/2021 10:42:10 AM Penicillins Recorded By: Farzad Magallon; 09/02/2021 10:42:10 AM Sulfa Drugs Recorded By: Farzad Magallon; 09/02/2021 10:42:10 AM Family History Mother Family history of coronary artery disease (V17.3) (Z82.49) Father Family history of coronary artery disease (V17.3) (Z82.49) Sister Family history of coronary artery disease (V17.3) (Z82.49) Brother Family history of coronary artery disease (V17.3) (Z82.49) Social History Problems Daily caffeine consumption, 1 serving a day Never a smoker No alcohol use No illicit tres (more content not included)... Normal [facility] Tobacco Screening.on 021 Fall risk assessment a) No falls within the last year [employer] Work Phone: Tobacco use status CP b) No [employer] DO Work Phone: POC Glucose Fingerstickon Glucose [Mass/Vol] 101 mg/dL 65 - 105 mg/dL [employer] Phone: Glucose [Mass/Vol] 121 mg/dL High 65 - 105 mg/dL [employer] Phone: Interpretation and review of laboratory results Abnormal [employer] Phone: Folateon 03-03-2021 Folate 6.6 ng/mL >4.8 [employer] Phone: Iron and TIBCon 03-03-2021 Interpretation and review of laboratory results Abnormal [employer] Phone: Iron [Mass/Vol] 15 ug/dL Low 37 - 145 ug/dL [employer] Phone: Iron Saturation 4 % Low 20 - 55 % [employer] [facility] Work Phone: TIBC 390 ug/dL 250 - 450 ug/dL [employer] Phone: UIBC 375 ug/dL High 112 - 347 ug/dL [employer] Phone: Reticulocyteson 03-03-2021 Absolute Retic # 0.049 [employer] Work Phone: Immature Retic Fract NOT REPORTED % [facility] [employer] Phone: Retic % 1.3 % 0.5 - 2.0 % [employer] Phone: Retic Hemoglobin NOT REPORTED 28.2 - 35.7 pg [facility] Phone: Vitamin B12on 03-03-2021 Cobalamin (Vitamin B12) [Mass/Vol] pg/mL High 232 - 1245 pg/mL [employer] Phone: Interpretation and review of laboratory results Abnormal [employer] Phone: Vital Signs Date Time Vital Sign Value Performing Clinician Facility 12-28-2023 12:00-0500 Body height 149.86 cm Tayla Torres Other [facility] Other 12-28-2023 12:00-0500 Body mass index (BMI) [Ratio] 35.95 kg/m2 Tayla Torres Other [facility] Other 12-28-2023 12:00-0500 Body temperature 98.1 [degF] Tayla Torres Other [facility] Other 12-28-2023 12:00-0500 Body weight 80.74 kg Tayla Torres Other [facility] Other 12-28-2023 12:00-0500 Respiratory rate 18 /min Tayla Torres Other [facility] Other 12-28-2023 12:00-0500 SaO2% (BldA) [Mass fraction] 97 % Tayla Torres Other [facility] Other 05-14-2023 12:05-0400 Body height 152.4 cm Concepcion Moore DO Work Phone: [facility] 05-14-2023 12:05-0400 Body weight 74.84 kg Concepcion Moore DO Work Phone: [facility] 05-08-2023 11:30-0400 Body height 149.86 cm Courtney Perez Other [facility] Other 05-08-2023 11:30-0400 Body mass index (BMI) [Ratio] 33.24 kg/m2 Courtney Perez Other [facility] Other 05-08-2023 11:30-0400 Body temperature 97.7 [degF] Courtney Perez Other [facility] Other 05-08-2023 11:30-0400 Body weight 74.66 kg Courtney Perez Other [facility] Other 05-08-2023 11:30-0400 Diastolic blood pressure 66 mm[Hg] Courtney Perez Other [facility] Other 05-08-2023 11:30-0400 Respiratory rate 18 /min Courtney Perez Other [facility] Other 05-08-2023 11:30-0400 SaO2% (BldA) [Mass fraction] 98 % Courtney Perez Other [facility] Other 05-08-2023 11:30-0400 Systolic blood pressure 154 mm[Hg] Courtney Perez Other [facility] Other 12-08-2022 16:06-0500 Body height 149.9 cm [facility] 3 [facility] 12-08-2022 16:06-0500 Body mass index (BMI) [Ratio] 33.73 kg/m2 [facility] 3 [facility] 12-08-2022 16:06-0500 Body weight 75.75 kg [facility] 3 [facility] 07-25-2022 10:25-0400 Body height 149.86 cm Adilia Ramirezmond Other [facility] Other 07-25-2022 10:25-0400 Body mass index (BMI) [Ratio] 35.14 kg/m2 Adilia Cielo Other [facility] Other 07-25-2022 10:25-0400 Body temperature 97.8 [degF] Adilia Ramirezmond Other [facility] Other 07-25-2022 10:25-0400 Body weight 78.93 kg Adilia Buck Other [facility] Other 07-25-2022 10:25-0400 Respiratory rate 18 /min Adilia Buck Other [facility] Other 07-25-2022 10:25-0400 SaO2% (BldA) [Mass fraction] 98 % Adilia Ramirezmond Other [facility] Other 04-06-2022 12:35-0400 Body height 149.86 cm Ava Salvador Other [facility] Other 04-06-2022 12:35-0400 Body mass index (BMI) [Ratio] 35.95 kg/m2 Ava Salvador Other [facility] Other 04-06-2022 12:35-0400 Body temperature 98.8 [degF] Ava Salvador Other [facility] Other 04-06-2022 12:35-0400 Body weight 80.74 kg Ava Salvador Other [facility] Other 04-06-2022 12:35-0400 Respiratory rate 18 /min Ava Salvador Other [facility] Other 04-06-2022 12:35-0400 SaO2% (BldA) [Mass fraction] 97 % Ava Salvador Other [facility] Other 09-09-2021 00:00-0400 90 1 Atul Frazier DO Work Phone: [facility] [place] Work Phone: Comment on above: [facility] 09-02-2021 10:49-0400 Heart rate 62 /min Atul Frazier DO Work Phone: [facility] [address] DO Work Phone: 09-02-2021 10:46-0400 Body height 149.86 cm Atul Freddie DO Work Phone: [facility] [place] Work Phone: 09-02-2021 10:46-0400 Body mass index (BMI) [Ratio] 34.54 kg/m2 Atul Frazier DO Work Phone: [facility] [address] DO Work Phone: 09-02-2021 10:46-0400 Body surface area Derived from formula 1.73 m2 Atul Frazier DO Work Phone: [facility] [address] DO Work Phone: 09-02-2021 10:46-0400 Body weight 77.57 kg Atul Frazier DO Work Phone: [facility] [address] DO Work Phone: 09-02-2021 10:46-0400 Diastolic blood pressure 70 mm[Hg] Atul Frazier DO Work Phone: [facility] [address] DO Work Phone: 09-02-2021 10:46-0400 Systolic blood pressure 138 mm[Hg] Atul Frazier DO Work Phone: [facility] [address] DO Work Phone: 03-07-2021 09:20-0400 BP Diastolic 53 mm[Hg] [facility]bi [employer] [facility] Work Phone: 03-07-2021 09:20-0400 BP Systolic 136 mm[Hg] [facility]bi [employer] [facility] Work Phone: 03-07-2021 09:20-0400 Pulse (Heart Rate) 81 /min [facility] [employer] Work Phone: 03-07-2021 09:20-0400 Pulse Oximetry 97 % [facility]bi [employer] [facility] Work Phone: 03-07-2021 09:20-0400 Respiratory Rate 21 /min [facility]bi [employer] [facility] Work Phone: 03-07-2021 09:10-0400 Body Temperature 97.7 [degF] [facility]bi [employer] [facility] Work Phone: 03-07-2021 06:58-0400 BMI (Body Mass Index) 37.2 kg/m2 [facility] [employer] [facility] Work Phone: 03-07-2021 06:58-0400 Body weight 80.74 kg [employer] [facility] Work Phone: 03-07-2021 06:58-0400 Height 147.3 cm Bobbi Nunez [employer] Work Phone: 02-26-2021 15:57-0400 BMI (Body Mass Index) 37.2 kg/m2 St [facility] [employer] Phone: 02-26-2021 15:57-0400 Body weight 80.74 kg [facility] 4 [employer] Work Phone: 02-26-2021 15:57-0400 Height 147.3 cm [facility] 4 [employer] Phone: Encounters Encounter Date Encounter Type Care Provider Facility Start: 09-28-2024 End: 09-28-2024 Telephone encounter Ava Damon OD Work Phone: Ophthalmology Comment on above: Medication Problem Start: 08-29-2024 End: 08-29-2024 ambulatory SMITH SHEIKH Facility:[facility] Start: 08-29-2024 End: 08-29-2024 Patient encounter procedure Ava Damon OD Work Phone: Ophthalmology Comment on above: Other chronic allerg ic conjunctivitis of both eyes (Primary Dx); Keratoconjunctivitis sicca of both eyes not specified as Sjogren's; Bilateral cornea scars; Pseudophakia of both eyes Start: 07-26-2024 End: 07-26-2024 ambulatory [facility] Ambulatory Start: 06-12-2024 End: 06-14-2024 Emergency department patient visit MARJORIE SYLVESTER [facility] Start: 06-12-2024 End: 06-13-2024 ambulatory SMITH Acevedo [facility] Start: 03-22-2024 End: 03-23-2024 ambulatory TRINIDAD LICONA [facility] Start: 03-13-2024 End: 03-13-2024 ambulatory AVA DAMON Facility:[facility] Start: 03-13-2024 End: 03-13-2024 Patient encounter procedure Ava Damon OD Work Phone: Ophthalmology Comment on above: Diabetes mellitus ty pe 2 without retinopathy (HCC) (Primary Dx); Bilateral cornea scars; Keratoconjunctivitis sicca of both eyes not specified as Sjogren's; Other chronic allergic conjunctivitis of both eyes; Pseudophakia of both eyes Start: 02-23-2024 End: 02-23-2024 Subsequent hospital visit by physician Trinidad Licona MD Work Phone: [employer] Comment on above: Canceled (Patient) Start: 02-21-2024 End: 03-22-2024 ambulatory [facility] Start: 02-02-2024 End: 02-03-2024 ambulatory [facility] Start: 02-02-2024 End: 02-02-2024 Subsequent hospital visit by physician Trinidad Licona MD Work Phone: [employer] Comment on above: Lumbosacral spondylo sis without myelopathy (Primary Dx) Start: 01-21-2024 End: 02-21-2024 ambulatory [facility] Start: 12-28-2023 End: 12-28-2023 ambulatory Tayla Torres Other [facility] Other Start: 12-28-2023 Office outpatient vi sit 25 minutes Tayla Torres [facility] Start: 12-23-2023 End: 01-21-2024 ambulatory [facility] Start: 11-30-2023 End: 12-03-2023 ambulatory [facility] Start: 11-29-2023 End: 12-23-[address] [facility] Start: 11-08-2023 End: 11-09-2023 ambulatory [facility] Start: 10-26-2023 End: 11-22-2023 ambulatory [facility] Start: 10-21-2023 End: 10-22-2023 ambulatory FABI [facility] Start: 05-14-2023 ambulatory SMITH SHEIKH Facility:[facility] Start: 05-14-2023 Telephone encounter Concepcion Moore DO Work Phone: [facility] Comment on above: Medication Question Start: 05-14-2023 End: 05-14-2023 Patient encounter procedure Concepcion Moore DO Work Phone: [facility] Comment on above: Spinal stenosis of l umbar region, unspecified whether neurogenic claudication present (Primary Dx); Degenerative arthropathy of spinal facet joint; Myalgia; Postural imbalance Start: 05-11-2023 Telephone encounter Concepcion Moore DO Work Phone: [facility] [place] Comment on above: Appointment Cancelle d Start: 05-08-2023 End: 05-08-2023 ambulatory Courtney Perez Other [facility] Other Start: 05-08-2023 Office outpatient vi sit 15 minutes Courtney Perez [facility] Start: 04-20-2023 End: 04-21-2023 ambulatory SMITH SHEIKH Facility:[facility] Start: 03-26-2023 End: 03-26-2023 Patient encounter procedure Blayne Haro OD Work Phone: Ophthalmology Comment on above: Left facial pain (Pr imary Dx); Keratoconjunctivitis sicca of both eyes not specified as Sjogren's; Bilateral cornea scars; Diabetes mellitus type 2 without retinopathy (HCC) Start: 03-09-2023 ambulatory MEÑO CARVER . Facility: Start: 02-23-2023 End: 02-23-2023 ambulatory SMITH SHEIKH Facility:[facility] Start: 02-11-2023 End: 02-12-[address] RONY ARCINIEGA . Facility:[facility] Start: 12-23-2022 Telephone encounter Ava Damon OD Work Phone: Ophthalmology Comment on above: Opened In Error Patient Question Start: 12-08-2022 End: 12-13-2022 ambulatory BOBBI NUNEZ [facility] Start: 12-08-2022 End: 12-12-2022 Subsequent hospital visit by physician Myles Pat Rm 3 [facility] Pre-Admit Testing Start: 12-02-2022 End: 12-02-2022 Subsequent hospital visit by physician Smith Sheikh MD Work Phone: [facility] Comment on above: Chronic anemia; Weight loss; Iron deficiency anemia secondary to inadequate dietary iron intake Start: 11-10-2022 End: 11-11-[address] RONY ARCINIEGA . Facility:[facility] Start: 10-01-[address] RONY ARCINIEGA . Faci lity:[facility] Start: 09-06-2022 End: 09-06-2022 ambulatory CORBY STORM . Facility:[facility] Start: 08-29-2022 End: 08-30-2022 ambulatory SMITH SHEIKH Facility:[facility] Start: 08-28-2022 End: 08-28-2022 ambulatory SMITH SHEIKH Facility:[facility] Start: 07-25-2022 Office outpatient vi sit 15 minutes Adilia Buck [facility] Start: 07-25-2022 End: 07-25-2022 ambulatory CORBY STORM . [facility] Other Start: 07-01-2022 End: 07-02-[address] RONY ARCINIEGA . Facility: Start: 04-15-2022 Telephone encounter Ava Damon OD Work Phone: Ophthalmology Comment on above: Patient Question Start: 04-07-2022 End: 04-07-2022 Subsequent hospital visit by physician Smith Sheikh MD Work Phone: [facility] Comment on above: Other iron deficienc y anemia Start: 04-06-2022 End: 04-06-2022 ambulatory Ava Salvador Other [facility] Other Start: 04-06-2022 Office outpatient vi sit 15 minutes Ava Salvador [facility] Start: 02-19-2022 End: 02-19-2022 Patient encounter procedure Ava Damon OD Work Phone: Ophthalmology Comment on above: Diabetes mellitus ty pe 2 without retinopathy (HCC) (Primary Dx); Keratoconjunctivitis sicca of both eyes not specified as Sjogren's; Other chronic allergic conjunctivitis of both eyes; Bilateral cornea scars; Pseudophakia of both eyes; Retinal pigment epithelial mottling of macula Start: 12-01-2021 End: 12-01-2021 ambulatory W Shady Frazier Facility:[facility] Start: 09-19-2021 Chart Update Atul veloz DO Work Phone: [facility] [address] [place] Work Phone: Start: 09-19-2021 [facility], Provider: Atul Frazier, Status: Pen, Time: 10:00 AM Atul Frazier DO Work Phone: -[facility] [address] [place] Work Phone: Start: 09-18-2021 AUDIT Atul veloz DO Work Phone: -[facility] [address] [place] Work Phone: Start: 09-11-2021 [facility], Provider: Atul Frazier, Status: Pen, Time: 12:00 PM Atul Frazier DO Work Phone: -[facility] [place] Work Phone: Start: 09-09-2021 Chart Update Atul veloz DO Work Phone: -[facility] [address] [place] Work Phone: Start: 09-02-2021 Office consultation new/estab patient 80 min Atul Frazier DO Work Phone: [facility] [address] DO Work Phone: Start: 09-02-2021 Patient encounter procedure Atul Frazier DO Work Phone: -[facility] [address] DO Work Phone: Start: 03-07-2021 End: 03-07-2021 Subsequent hospital visit by physician Bobbi Nunez Work Phone: [facility] Start: 03-03-2021 End: 03-03-2021 Subsequent hospital visit by physician Myles Covid Screening Schedule [facility] Covid Screening Comment on above: Pre-op testing (Prim bartolo Dx) Anemia, unspecified type Start: 02-26-2021 End: 03-02-2021 Subsequent hospital visit by physician Myles Pat Rm 4 [facility] Pre-Admit Testing Procedures Date Procedure Procedure Detail Performing Clinician Start: 02-02-2024 Glucose blood reagent strip Trinidad Licona MD Work Phone: Start: 12-02-2022 Comprehensive metabo lic panel Bobbi Nunez MD Work Phone: Start: 04-07-2022 Iron binding capacity K andrey Sheikh MD Work Phone: Start: 04-07-2021 Mammography Ava Damon OD Work Phone: Start: 03-07-2021 Glucose blood reagent strip Bobbi Nunez Work Phone: Start: 03-07-2021 Glucose blood reagent strip Bobbi Nunez Work Phone: Start: 03-07-2021 Colonoscopy Smith nix MD Work Phone: Start: 03-03-2021 Assay of folic acid serum Bobbi Nunez Work Phone: Start: 03-03-2021 Blood count reticulo cyte automated Bobbi Nunez Work Phone: Start: 03-03-2021 Cyanocobalamin vitamin b-12 Bobbi Nunez Work Phone: Start: 03-03-2021 Iron binding capacity S lore Nunez Work Phone: Cholecystectomy Atul fermin DO Work Phone: Colonoscopy Atul Frazier DO Work Phone: Operation on the ear Atul Frazier DO Work Phone: Ostectomy of calcane us for spur Atul Frazier DO Work Phone: Partial hysterectomy Atul Frazier DO Work Phone: Tonsillectomy Atul veloz DO Work Phone: Plan of Treatment Date Care Activity Detail Author Start: 03-07-2026 Screening for malignant neoplasm of colon [facility] Start: 03-14-2025 End: 03-14-2025 Patient encounter procedure 03/14/2025 10:30 AM EDT Office Visit [facility] [address] [place] [address] Ava Damon, OD [address] [place] [address] 1 year diabetic eye exam Ophthalmology Comment on above: 1 year diabetic eye exam Start: 03-13-2025 Glaucoma screening Dilated Retinal Exam [facility] Start: 12-13-2024 Depression Screen Depression Screen [facility] Start: 07-23-2024 Covid-19 Vaccine ( season) Covid-19 Vaccine ( season) [facility] Start: 07-23-2024 Influenza vaccination [facility] Start: 07-06-2024 Hemoglobin A1c measurement HbA1C [facility] Start: 06-22-2024 Influenza vaccination Flu vaccine (Season Ended) [facility] Start: 04-10-2024 End: 04-10-2024 Patient encounter procedure 04/10/2024 2:30 PM EDT Office Visit [facility] [address] [place] [address] [phone] Smith Sheikh MD [address] [place] [address] 3 month check [facility] Comment on above: 3 month check Start: 04-07-2024 Shingles vaccine (2 of 2) Shingles vaccine (2 of 2) [employer] Comment on above: Postponed from 09/17/2021 (Unavailable) Start: 04-03-2024 End: 04-03-2024 Patient encounter procedure 04/03/2024 11:15 AM EDT Office Visit [facility] [address] [place] [address] Smith Sheikh MD [address] [place] [address] 3 month f/u [facility] Comment on above: 3 month f/u Start: 03-29-2024 Pneumococcal 65+ years Vaccine (2 - PPSV23 or PCV20) Pneumococcal 65+ years Vaccine (2 - PPSV23 or PCV20) [employer] Comment on above: Postponed from 09/17/2021 (Unavailable) Start: 03-29-2024 Pneumococcal 65+ years Vaccine (2 of 2 - PPSV23 or PCV20) Pneumococcal 65+ years Vaccine (2 of 2 - PPSV23 or PCV20) [employer] Comment on above: Postponed from 09/17/2021 (Unavailable) Start: 03-10-2024 Hepatitis C antibody, confirmatory test DILATED RETINAL EXAM [facility] Start: 12-02-2023 GFR test (Diabetes, CKD 3-4, OR last GFR 15-59) GFR test (Diabetes, CKD 3-4, OR last GFR 15-59) [facility] Start: 11-22-2023 Advance Directive Discussion Advance Directive Discussion [facility] Start: 11-22-2023 Behavioral Health Screening Behavioral Health Screening [facility] Start: 10-21-2023 Depression Screen Depression Screen [facility] Start: 10-21-2023 Hemoglobin A1c measurement A1C test (Diabetic or Prediabetic) [facility] Start: 08-29-2023 Lipid panel Lipids [facility] Start: 07-23-2023 Covid-19 Vaccine ( season) Covid-19 Vaccine () [facility] Start: 07-23-2023 COVID-19 Vaccine ( season) COVID-19 Vaccine ( season) [facility] Start: 06-22-2023 Influenza vaccination Flu vaccine (#1) [facility] Start: 04-07-2023 Screening for malignant neoplasm of breast Breast cancer screen [facility] Start: 02-19-2023 Hepatitis C antibody, confirmatory test DILATED RETINAL EXAM [facility] Start: 01-20-2023 End: 01-20-2023 Patient encounter procedure 01/20/2023 Office Visit Family Medicine Smith Sheikh MD [address] [place] [id number] Smith Sheikh MD [facility] Start: 2023 RSV Vaccine (1 - 1-dose 75+ series) RSV Vaccine (1 - 1-dose 75+ series) [facility] Start: 12-22-2022 End: 12-22-2022 Admission to same day surgery center 12/22/2022 Surgery Endoscopy Bobbi Nunez MD [address] [place] [address] EGD [facility] Comment on above: EGD BIOPSY Start: 12-22-2022 End: 12-22-2022 Egd transoral biopsy single/multiple EGD BIOPSY Gastroesophageal reflux disease without esophagitis 12/22/2022 8:00 AM EST [facility] Start: 12-22-2022 Subsequent hospital visit by physician 12/22/2022 Hospital Encounter Endoscopy Bobbi Nunez MD [address] [place] [address] [facility] Start: 12-08-2022 End: 12-08-2022 Patient encounter procedure 12/08/2022 Appointment Pre-Admission Testing [facility] Pre-Admit Testing Start: 11-22-2022 ADVANCE DIRECTIVE DISCUSSION ADVANCE DIRECTIVE DISCUSSION [facility] Start: 11-22-2022 DEPRESSION ASSESSMENT DEPRESSION ASSESSMENT [facility] Start: 11-03-2022 Depression Screen Depression Screen [facility] Start: 08-30-2022 Hemoglobin A1c measurement A1C test (Diabetic or Prediabetic) [employer] Start: 07-23-2022 Influenza vaccination [facility] Start: 07-23-2022 Pneumococcal 65+ years Vaccine (2 - PPSV23 if available, else PCV20) Pneumococcal 65+ years Vaccine (2 - PPSV23 if available, else PCV20) [facility] [employer] Start: 07-23-2022 Pneumococcal 65+ years Vaccine (2 - PPSV23 or PCV20) Pneumococcal 65+ years Vaccine (2 - PPSV23 or PCV20) [facility] Start: 05-13-2022 End: 05-13-2022 Patient encounter procedure 05/13/2022 Office Visit Gastroenterology Bobbi Nunez MD [address] [place] [address] [facility] Start: 04-22-2022 End: 04-22-2022 Patient encounter procedure 04/22/2022 Office Visit Family Medicine Smith Sheikh MD [address] [place] [id number] Smith Sheikh MD [facility] Start: 04-07-2022 Mammography MAMMOGRAM [facility] Start: 02-14-2022 Screening for malignant neoplasm of colon FIT/FOBT: Average risk [employer] Start: 02-05-2022 Hepatitis C screening Hepatitis C screen [employer] Phone: Comment on above: Postponed from 1948 (Patient Refus ed) Start: 01-24-2022 COVID-19 VACCINE (4 - Booster for Moderna series) COVID-19 VACCINE (4 - Booster for Moderna series) [facility] Start: 01-22-2022 Creatinine measurement Creatinine monitoring [employer] Phone: Start: 01-22-2022 HbA1c (Bld) [Mass fraction] A1C test (Diabetic or Prediabetic) [employer] Phone: Start: 01-22-2022 Lipid panel [employer] Start: 01-22-2022 Potassium monitoring Potassium monitoring [facility] [employer] Phone: Start: 01-22-2022 TSH Qn TSH testing [facility] [employer] Phone: Start: 11-22-2021 ADVANCE DIRECTIVE DISCUSSION ADVANCE DIRECTIVE DISCUSSION [facility] Start: 11-21-2021 COVID-19 VACCINE (4 - Booster for Moderna series) COVID-19 VACCINE (4 - Booster for Moderna series) [facility] Start: 11-21-2021 COVID-19 VACCINE (5 - Booster for Moderna series) COVID-19 VACCINE (5 - Booster for Moderna series) [facility] Start: 11-21-2021 COVID-19 Vaccine (5 - Booster) COVID-19 Vaccine (5 - Booster) [facility] Start: 10-30-2021 [facility], Provider: Atul Frazier, Status: Pen, Time: 10:10 AM [facility], Provider: Atul Frazier, Status: Pen, Time: 10:10 AM [employer] DO Work Phone: Start: 09-17-2021 Pneumococcal Vaccine: 65+ (2 of 2 - PPSV23 or PCV20) Pneumococcal Vaccine: 65+ (2 of 2 - PPSV23 or PCV20) [facility] Start: 09-17-2021 Shingles vaccine (2 of 2) Shingles vaccine (2 of 2) [facility] Start: 09-17-2021 Shingrix Vaccine (2 of 2) Shingrix Vaccine (2 of 2) [facility] Start: 09-11-2021 [facility], Provider: Atul Frazier, Status: Pen, Time: 12:00 PM [facility], Provider: Atul Frazier, Status: Pen, Time: 12:00 PM [employer] 250 DO Work Phone: Start: 08-28-2021 HbA1c (Bld) [Mass fraction] A1C test (Diabetic or Prediabetic) [facility] [employer] Phone: Start: 08-23-2021 DTaP/Tdap/Td vaccine (1 - Tdap) DTaP/Tdap/Td vaccine (1 - Tdap) [employer] Phone: Comment on above: Postponed from 1967 (Not Indicated ) Start: 08-23-2021 Pneumococcal 65+ years Vaccine (1 of 1 - PPSV23) Pneumococcal 65+ years Vaccine (1 of 1 - PPSV23) [employer] Phone: Comment on above: Postponed from 2013 (Not Indicated ) Start: 08-23-2021 Shingles Vaccine (1 of 2) Shingles Vaccine (1 of 2) [employer] Phone: Comment on above: Postponed from 1998 (Not Indicated ) Start: 07-23-2021 Influenza vaccination INFLUENZA (#1) [facility] Start: 03-31-2021 End: 03-31-2021 Office Visit 03/31/2021 Office Visit Gastroenterology Bobbi Nunez MD [address] [place] [address] [address] [phone] [facility] Start: 03-17-2021 End: 03-17-2021 Office Visit 03/17/2021 Office Visit Family Medicine Smith Sheikh MD [address] [place] [address] [phone] Smith Sheikh MD [facility] Start: 03-07-2021 End: 03-07-2021 Hospital Encounter [facility] Comment on above: EGD Start: 03-03-2021 End: 02-28-2022 COVID-19 [employer] Phone: Comment on above: Expected: 03/03/2021, Expires: 2 Once for 1 Occurrenc es starting 03/03/2021 until 03/03/2021 Start: 03-03-2021 Hospital Encounter 03/03/2021 Hospital Encounter Lab Pre-op testing (Primary Dx) [facility] Covid Screening Comment on above: Pre-op testing (Primary Dx) Start: 02-26-2021 Hemoglobin A1c measurement HbA1C [facility] Start: 02-26-2021 Hemoglobin A1c/Hemoglobin.total in Blood HBA1C [facility] Start: 12-25-2018 Screening for malignant neoplasm of breast Breast cancer screen [employer] Phone: Start: 08-21-2017 Screening for malignant neoplasm of colon Colon Cancer Screen FIT/FOBT [employer] Phone: Start: 07-31-2017 Creatinine measurement Creatinine monitoring [employer] Phone: Start: 07-31-2017 Lipid panel Lipid screen [employer] Phone: Start: 07-31-2017 Potassium monitoring Potassium monitoring [employer] Phone: Start: 07-31-2017 TSH Qn TSH testing [employer] Phone: Start: 11-19-2015 Diabetic foot examination Diabetic foot exam [facility] Start: 11-19-2015 Diabetic retinal exam Diabetic retinal exam [facility] Start: 11-19-2015 Glaucoma screening Diabetic retinal exam [employer] Start: 2013 BONE DENSITY BONE DENSITY [facility] Start: 2013 PNEUMOCOCCAL: 65+ (1 - PCV) PNEUMOCOCCAL: 65+ (1 - PCV) [facility] Start: 2013 PNEUMOVAX AGE 65 AND OVER WITH 5YR LOOKBACK (#1) PNEUMOVAX AGE 65 AND OVER WITH 5YR LOOKBACK (#1) [facility] Start: 2013 Screening for osteoporosis Bone Density Screening [facility] Start: 2008 Respiratory Syncytial Virus (RSV) or age 60 yrs+ (1 - 1-dose 60+ series) Respiratory Syncytial Virus (RSV) or age 60 yrs+ (1 - 1-dose 60+ series) [facility] Start: 2008 RSV Vaccine (1 - 1-dose 60+ series) RSV Vaccine (1 - 1-dose 60+ series) [facility] Start: 1998 SHINGRIX VACCINE (1 of 2) SHINGRIX VACCINE (1 of 2) [facility] Start: 1993 COLOGUARD (FIT-DNA) COLOGUARD (FIT-DNA) [facility] Start: 1993 Colonoscopy COLONOSCOPY [facility] Start: 1993 COLORECTAL CANCER SCREENING COLORECTAL CANCER SCREENING [facility] Start: [address] COLONOGRAPHY [facility] Start: 1993 FECAL OCCULT BLOOD FECAL OCCULT BLOOD [facility] Start: 1993 Screening for malignant neoplasm of colon [facility] Start: 1993 SIGMOIDOSCOPY SIGMOIDOSCOPY [facility] Start: 1967 DTaP/Tdap/Td vaccine (1 - Tdap) DTaP/Tdap/Td vaccine (1 - Tdap) [facility] Start: 1967 Urine microalbumin profile [facility] Start: 1966 ANNUAL PCP TEAM CHRONIC DISEASE VISIT ANNUAL PCP TEAM CHRONIC DISEASE VISIT [facility] Start: 1966 Anxiety Screening Anxiety Screening [facility] Start: 1966 Depression Screening Depression Screening [facility] Start: 1966 Diabetic microalbuminuria test Diabetic microalbuminuria test [employer] Phone: Start: 1966 Hepatitis B surface antibody level LDL CHOLESTEROL [facility] Start: 1966 HEPATITIS C SCREENING HEPATITIS C SCREENING [facility] Start: 1966 Hepatitis C screening [facility] Start: 1966 Urine screening for protein [facility] Start: 1960 Adult depression screening assessment DEPRESSION SCREENING [facility] Start: 1958 3 comp foot exam completed DIABETIC FOOT EXAM [facility] Start: 1958 Diabetic foot examination Diabetic Foot Exam [facility] Start: 1958 Hepatitis B screening URINE ALBUMIN:CREATININE RATIO [facility] Start: 1954 PNEUMOCOCCAL: 65+ (1 - PCV) PNEUMOCOCCAL: 65+ (1 - PCV) [facility] Start: 1948 Annual Wellness Visit (AWV) Annual Wellness Visit (AWV) [employer] COVID-19 COVID-19 Lab Kayden ross 03/03/2021 1:21 PM EDT [employer] Phone: Oxygen therapy [[facility]] Initiate Oxygen Therapy Protocol Respiratory Care Routine Daily until discontinued starting 03/07/2021 [employer] Phone: Comment on above: Daily until discontinued starting 2020 Surgical Pathology Surgical Path ology Lab Routine Release Upon Ordering for 1 Occurrences starting 03/07/2021 [employer] Work Phone: Comment on above: Release Upon Ordering for 1 Occurrences starting 03/07/2021 End: 03-03-2021 Tissue Transglutaminase, IgA Tissue Transglutaminase, IgA Lab Routine Anemia, unspecified type 1 Occurrences starting 03/03/2021 until 03/03/2021 [employer] Work Phone: Comment on above: 1 Occurrences starting 03/03/2021 until 03/03/2021 Tissue Transglutamin ase, IgA Tissue Transglutaminase, IgA Lab Routine Anemia, unspecified type 03/03/2021 10:40 AM EDT [employer] Work Phone: End: 12-02-2022 Tissue Transglutaminase, IgA [facility] Work Phone: Comment on above: 1 Occurrences starting 12/02/2022 until 12/02/2022 [facility] Immunizations Immunization Date Immunization Notes Care Provider [facility] 08-28-2022 influenza, high dose seasonal, preservative-free Smith Sheikh MD Work Phone: [facility] 08-28-2022 influenza virus vaccine, unspecified formulation Ava Damon OD Work Phone: [facility] 09-26-2021 COVID-19, PFIZER PUR PLE top, DILUTE for use, (age 12 y+), 30mcg/0.3mL Trinidad Licona MD Work Phone: [facility] 07-23-2021 pneumococcal conjuga te vaccine, 13 valent Atul Frazier DO Work Phone: [facility] 07-23-2021 zoster vaccine recombinant Atul Frazier DO [facility] Work Phone: 02-23-2021 COVID-19, Moderna, Primary or Immunocompromised, PF, 100mcg/0.5mL Smith Sheikh MD Work Phone: [facility] [employer] Work Phone: 02-20-2021 Moderna COVID-19 Vaccine 100 MCG/0.5ML Intramuscular Suspension Atul Frazier DO Work Phone: [facility] Work Phone: 01-31-2021 COVID-19, Moderna, P F, 100mcg/0.5mL Stcz 4 [facility] Work Phone: 01-23-2021 Moderna COVID-19 Vaccine 100 MCG/0.5ML Intramuscular Suspension Atul Frazier DO Work Phone: [facility] Work Phone: 10-26-2020 Influenza, High-dose , Quadv, 65 yrs +, IM (Fluzone) Stcz 4 [facility] Work Phone: Payers Date Payer Category Payer Self-pay 2017 Medicare HUMANA MEDICARE HU[employer]NA MEDICARE PPO [id number] 2017-Present [phone] [address] [place] [address] PPO [id number] 2017 Medicare HUMANA MEDICARE HUMANA MEDICARE PPO [id number] 2017-Present [phone] [address] [place] [address] PPO [id number] 1959 Private Health Insurance [id number] 1948 Unknown [id number] 2.16.840.1.090263.3.579.2 .593 1948 Unknown [id number] 2.16.840.1.105534.3.579.2 .593 1948 Unknown [id number] 2.16.840.1.254146.3.579.2 .593 1948 Unknown [id number] 2.16.840.1.832811.3.579.2 .593 1948 Unknown [id number] 2.16.840.1.216887.3.579.2 .593 1948 Unknown [id number] 2.16.840.1.710219.3.579.2 .593 1948 Unknown [id number] 2.16.840.1.204934.3.579.2 .593 1948 Unknown [id number] 2.16.840.1.910924.3.579.2 .593 1948 Unknown [id number] 2.16.840.1.212804.3.579.2 .593 1948 Unknown [id number] 2.16.840.1.391900.3.579.2 .593 1948 Unknown [id number] 2.16.840.1.044608.3.579.2 .593 1948 Unknown [id number] 2.16.840.1.074172.3.579.2 .176 1948 Unknown [id number] 2.16.840.1.644667.3.579.2 .176 1948 Unknown [id number] 2.16.840.1.088740.3.579.2 .176 1948 Unknown [id number] 2.16.840.1.880924.3.579.2 .175 1948 Unknown [id number] 2.16.840.1.802774.3.579.2 .175 1948 Unknown [id number] 2.16.840.1.473496.3.579.2 .175 1948 Unknown [id number] 2.16.840.1.109010.3.579.2 .175 1948 Unknown [id number] 2.16.840.1.038361.3.579.2 .175 1948 Unknown [id number] 2.16.840.1.113426.3.579.2 .175 1948 Unknown [id number] 2.16.840.1.239452.3.579.2 .1286 1948 Unknown [id number] 2.16.840.1.467218.3.579.2 .1286 1948 Unknown [id number] 2.16.840.1.138600.3.579.2 .1286 1948 Unknown [id number] 2.16.840.1.962344.3.579.2 .128 1948 Unknown [id number] 2.16.840.1.966571.3.579.2 .128 1948 Unknown [id number] 2.16.840.1.792035.3.579.2 .1286 1948 Unknown [id number] 2.16.840.1.267178.3.579.2 .1286 1948 Unknown [id number] 2.16.840.1.925979.3.579.2 .1244 Unknown [employer] GOLD CHOICE Unknown [id number] 2.16.840.1.536273.3.579.2 .531 Social History Date Type Detail Facility Start: 02-26-2021 End: 03-10-2023 Tobacco smoking status MOIS Never smoker [facility] Start: 02-26-2021 End: 03-10-2023 Tobacco use and exposure Never used [employer] Phone: Start: 02-26-2021 End: 02-02-2024 Alcohol intake Current non-drinker of alcohol (finding) [employer] Phone: Start: 02-05-2021 History SDOH Social Connections Phone 5 [employer] Phone: Start: 02-05-2021 End: 02-19-2022 History SDOH Social Connections Get Together 1 [employer] Phone: Start: 02-05-2021 History SDOH Social Connections [employer] 3 [employer] Work Phone: Start: 02-05-2021 History SDOH Physical Activity DPW 0 [employer] Work Phone: Start: 02-05-2021 History SDOH Education 12 [employer] Phone: Start: 02-05-2021 History SDOH IPV Fear 2 [employer] Phone: Start: 05-19-2013 Alcohol Comment never drank [employer] Phone: Start: 1950 Sex Assigned At Not on file [employer] Work Phone: Start: 01-23-2022 End: 12-08-2022 Exposure to SARS-CoV-2 (event) Not sure [employer] Phone: Start: 11-03-2021 End: 03-26-2023 No alcohol use No alcohol use -[facility] DO Work Phone: Start: 02-19-2022 End: 08-29-2024 Alcohol intake Lifetime non-drinker (finding) [facility] Start: 02-05-2021 End: 03-26-2023 Sex Assigned At [facility] Other Start: 08-28-2022 History SDOH Financial 4 [employer] Work Phone: Do you belong to any clubs or organizations such as confucianist groups, unions, fraternal or athletic groups, or school groups? Yes [employer] Are you now , , , , never or living with a partner? [employer] How hard is it for y ou to pay for the very basics like food, housing, medical care, and heating Not hard at all [employer] Do you feel stress - tense, restless, nervous, or anxious, or unable to sleep at night because your mind is troubled all the time - these days [OSQ] Not at all [employer] (I/We) worried wheth er (my/our) food would run out before (I/we) got money to buy more. Never true [employer] At any time in the p ast 12 months, were you homeless or living in assisted [including now]? No [employer] Medical Equipment Procedure Code Equipment Code Equipment Origin al Text Equipment Identifier Dates 100 each by In V itro route 2 times daily As needed. [id number] Start: 02-24-2018 1 kit by Does no t apply route 2 times daily [id number] Start: 02-24-2018 Patient test blo od sugar BID [id number] Start: 02-24-2018 End: 12-08-2022 Lens Iol +21.5 D iop Acrsf Iq - [id number] Start: 01-10-2014 100 each by In V itro route 2 times daily As needed. [id number] Start: 07-28-2022 Clinical Notes 11-03-2010 to 09-28-2024 Telephone Encounter - Astrid Moralez - 09/28/2024 8:54 AM ESTTelephone Encounter - Astrid Moralez - 09/28/2024 8:54 AM Ava Hastings, OD - 08/29/2024 3:24 PM EDTPatient Instructions Note Date & Type Note Facility 09-28-2024 Telephone encounter Note Pt is requesting a new eye drop prescription or another alternative due to the rx that was given being to expensive. Pt states they are 25 dollars and too much. Would like something else. Would like something sent to [facility] in [place] on [address] [facility] 09-28-2024 Miscellaneous Notes Pt is requesting a new eye drop prescription or another alternative due to the rx that was given being to expensive. Pt states they are 25 dollars and too much. Would like something else. Would like something sent to [facility] in [place] on [address] documented in this encounter [facility] 08-29-2024 Note HNO ID: [id number] Author: AVA DAMON OD Service: ? Author Type: MANAGER LOGISTIC Type: Progress Notes Filed: 08/29/2024 15:26 Note Text: ASSESSMENT/PLAN: 1. Other chronic allergic conjunctivitis of both eyes - ICD9: 372.14, ICD10: H10.45 (primary diagnosis) Allergy flare. Start maxitrol TID OU x 1 week (FML not available). Pataday BID OU (Rx called in, but available in 1-2x daily dose OTC). Call if NI 2. Keratoconjunctivitis sicca of both eyes not specified as Sjogren's - ICD9: 370.33, ICD10: H16.223 Switch back to Refresh BID OU. 3. 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 Stable. 4. Pseudophakia of both eyes - ICD9: V43.1, ICD10: Z96.1 Ava Damon, OD I have confirmed and edited as necessary the relevant ophthalmic history, ROS, and the exam findings as obtained by others. I have seen and examined this patient. I have discussed the case and the management of this patient's care with the resident or fellow as appropriate. I also have reviewed and agree with the assessment and plan as stated above and agree with all of its relevant components. Ava Damon, OD August 29, 2024 3:24 PM [facility] 08-29-2024 History of Present illness Narrative ASSESSMENT/PLAN: 1. Other chronic allergic conjunctivitis of both eyes - ICD9: 372.14, ICD10: H10.45 (primary diagnosis) Allergy flare. Start maxitrol TID OU x 1 week (FML not available). Pataday BID OU (Rx called in, but available in 1-2x daily dose OTC). Call if NI 2. Keratoconjunctivitis sicca of both eyes not specified as Sjogren's - ICD9: 370.33, ICD10: H16.223 Switch back to Refresh BID OU. 3. 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 Stable. 4. Pseudophakia of both eyes - ICD9: V43.1, ICD10: Z96.1 Ava Damon, MAYLIN I have confirmed and edited as necessary the relevant ophthalmic history, ROS, and the exam findings as obtained by others. I have seen and examined this patient. I have discussed the case and the management of this patient's care with the resident or fellow as appropriate. I also have reviewed and agree with the assessment and plan as stated above and agree with all of its relevant components. Ava Damon OD August 29, 2024 3:24 PM documented in this encounter [facility] 08-29-2024 Instructions Ava Damon OD - 08/29/2024 11:44 AM EDT Short term: start maxitrol drops (steroid) 3 times daily in both eyes for 5 days, then stop. This should help you feel better quickly emt intermediate: also start allergy drops (either Rx, or OTC Pataday, Zaditor) twice a day. Go back to Refresh for artificial tears documented in this encounter [facility] 06-12-2024 Note XR CHEST 2 VWS Procedure: Chest x-ray performed Number of views:2 History:Chest pain Covid positive Comparison:01/20/2020 Findings: The heart and lungs show no acute findings, and the mediastinum and brennen are grossly negative . Impression: 1. No acute change. Finalized by Marvin Ackerman MD on 06/12/2024 9:29 PM [facility] 03-13-2024 Instructions Ava Damon OD - 03/13/2024 11:10 AM EDT Dry eye is likely causing the blurred vision in the morning, and blurriness that gets worse with prolonged reading. Start using artificial tears 2-3 times daily, when needed. Here are some good omaq-pcr-wscpwth brands: Systane, Refresh, TheraTears Restart the pataday allergy drops in both eyes every morning during allergy seasons documented in this encounter [facility] 03-13-2024 Note HNO ID: [id number] Author: AVA DAMON OD Service: ? Author Type: MANAGER LOGISTIC Type: Progress Notes Filed: 03/13/2024 11:12 Note Text: ASSESSMENT/PLAN: 1. Diabetes mellitus type 2 without retinopathy (HCC) - ICD9: 250.00, ICD10: E11.9 (primary diagnosis) - Controlled - Continue current medications Encouraged tight blood sugar control. Monitor 1 year. 2. 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 Keratoconjunctivitis sicca of both eyes not specified as Sjogren's - ICD9: 370.33, ICD10: H16.223 Pt educated. Start ATs BID-TID OU, chronically. Samples given of Systane Complete 4. Other chronic allergic conjunctivitis of both eyes - ICD9: 372.14, ICD10: H10.45 Pataday QAM OU 5. Pseudophakia of both eyes - ICD9: V43.1, ICD10: Z96.1 Continue OTC readers. Pt states cannot afford Rx glasses. Ava Damon OD I have confirmed and edited as necessary the relevant ophthalmic history, ROS, and the exam findings as obtained by others. I have seen and examined this patient. I have discussed the case and the management of this patient's care with the resident or fellow as appropriate. I also have reviewed and agree with the assessment and plan as stated above and agree with all of its relevant components. Ava Damon OD March 13, 2024 11:08 AM [facility] 03-13-2024 History of Present illness Narrative ASSESSMENT/PLAN: 1. Diabetes mellitus type 2 without retinopathy (HCC) - ICD9: 250.00, ICD10: E11.9 (primary diagnosis) - Controlled - Continue current medications Encouraged tight blood sugar control. Monitor 1 year. 2. 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 Keratoconjunctivitis sicca of both eyes not specified as Sjogren's - ICD9: 370.33, ICD10: H16.223 Pt educated. Start ATs BID-TID OU, chronically. Samples given of Systane Complete 4. Other chronic allergic conjunctivitis of both eyes - ICD9: 372.14, ICD10: H10.45 Pataday QAM OU 5. Pseudophakia of both eyes - ICD9: V43.1, ICD10: Z96.1 Continue OTC readers. Pt states cannot afford Rx glasses. Ava Damon, OD I have confirmed and edited as necessary the relevant ophthalmic history, ROS, and the exam findings as obtained by others. I have seen and examined this patient. I have discussed the case and the management of this patient's care with the resident or fellow as appropriate. I also have reviewed and agree with the assessment and plan as stated above and agree with all of its relevant components. Ava Damon, MAYLIN March 13, 2024 11:08 AM documented in this encounter [facility] 02-23-2024 History of Present illness Narrative Pt called to cancel appt she is ill will call office to reschedule. documented in this encounter [facility] 02-23-2024 Hospital Discharge instructions Chichi Castrejon RN - 02/23/2024 7:19 AM EDT Discharge Instructions following Sedation or Anesthesia: You have received a sedative/anesthetic therefore, you should not consume any alcoholic beverages for minimum of [address] operate machinery for 24 hours. Do not sign legal documents for 24 hours. Dizziness, drowsiness, and unsteadiness may occur. Rest when need to. Increase diet as tolerated. Keep up on fluids if diet allows. General Instructions: Do not take a tub bath for 72 hours after procedure (this includes hot tubs and swimming pools). You may shower, but avoid hot water to injection site. Avoid strenuous activity TODAY especially if you experience dizziness. Remove band-aid the next day. Wash off any residual iodine Do not use heat, heating pad, or any other heating device over the injection site for 3 days after the procedure. If you experience pain after your procedure, you may continue with your current pain medication as prescribed. (DO NOT INCREASE YOUR PAIN MEDICATION WITHOUT TALKING TO DOCTOR) Soreness and pain at injection site is common, may use ice to reduce soreness. Call [facility] at [phone] if you experience: Fever, chills or temperature over 100 Vomiting, Headache, persistent stiff neck, nausea, blurred vision Difficulty in urinating or unable to urinate with 8 hours Increase in weakness, numbness or loss of function Increased redness, swelling or drainage at the injection site documented in this encounter [facility] 02-02-2024 Hospital Discharge instructions Chichi Castrejon RN - 02/02/2024 7:20 AM EDT Discharge Instructions following Sedation or Anesthesia: You have received a sedative/anesthetic therefore, you should not consume any alcoholic beverages for minimum of [address] operate machinery for 24 hours. Do not sign legal documents for 24 hours. Dizziness, drowsiness, and unsteadiness may occur. Rest when need to. Increase diet as tolerated. Keep up on fluids if diet allows. General Instructions: Do not take a tub bath for 72 hours after procedure (this includes hot tubs and swimming pools). You may shower, but avoid hot water to injection site. Avoid strenuous activity TODAY especially if you experience dizziness. Remove band-aid the next day. Wash off any residual iodine Do not use heat, heating pad, or any other heating device over the injection site for 3 days after the procedure. If you experience pain after your procedure, you may continue with your current pain medication as prescribed. (DO NOT INCREASE YOUR PAIN MEDICATION WITHOUT TALKING TO DOCTOR) Soreness and pain at injection site is common, may use ice to reduce soreness. Please complete pain diary as instructed. Call [facility] at [phone] if you experience: Fever, chills or temperature over 100 Vomiting, Headache, persistent stiff neck, nausea, blurred vision Difficulty in urinating or unable to urinate with 8 hours Increase in weakness, numbness or loss of function Increased redness, swelling or drainage at the injection site documented in this encounter [facility] 12-28-2023 Evaluation note Encounter Date Diagnosis Assessment Notes Dec, Acute cough (ICD-10 - R05.1) Dec, COPD exacerbation (ICD-10 - J44.1) Advised patient that rapid COVID/Influenz a A/B test was negative today in office. Discussed diagnosis with patient in detail. Will treat today with antibiotic. Reviewed allergies and recent antibiotic use. Advised to take medications as prescribed, take with food and plenty of water, finish entire course. Encouraged supportive care as directed, push fluids and rest, may use Tylenol as needed for fever/discomfo rt, cool mist humidifier. May use Tessalon Perles, albuterol inhaler as directed. Patient to follow up with PCP in 2-3 days. Immediate eval if SOB, difficulty breathing, chest pain, dizziness, or other concerning symptoms. Patient verbalizes understanding and is agreeable to treatment plan [facility] Other 06-23-2023 NoteHNO ID: [id number] Author: RT Brandyn(R) Service: Radiology Author Type: Rail Track Layer Type: Progress Notes Filed: 05/14/2023 1:06 PM Note Text: Radiology Service Progress Note PATIENT NAME: Marah Silva DATE OF SERVICE: May 14, 2023 TIME: 1:06 PM PATIENT IDENTITY VERIFICATION COMPLETED USING TWO (2) IDENTIFIERS: Name and Date of confirmed by patient verbally and Name and Date of confirmed by identification band. FALL SCREENING: Has the patient had 2 falls in the last year or 1 fall with injury or currently using an Ambulatory Assistive Device (Walker, Cane, Wheelchair, Crutches, etc.)? No PATIENT GENDER DATA: Female. status: : No status: NO. PATIENT RELEVANT IMPLANT DATA REVIEWED: Not Applicable RADIOLOGY DEPARTMENT: General X-ray: Exam(s) Completed: Spine X-Ray(s): Lumbar AP / LAT / L5-S1 Pelvis X-Ray: Pelvis General AP PERIPHERAL IV DATA: Not applicable SIGNED BY: Milagros Cox RT(R) May 14, 2023 1:06 [id number] Miscellaneous Notes* Telephone Encounter - Dominique Meneses LPN - 05/14/2023 1:24 PM EDT Pt came back to the front end manager requesting tramadol Spoke to pt and advised Dr Moore does not prescribe narcotics for chronic pain and will need to secure the tramadol from the prior prescriber-also noted in office visit note Pt stated the prescriber did not want to see her anymore Advised pt to see if another provider/PCP would possibly consider prescribing the tramadol Pt verbalized understanding [facility] History of Present illness Narrative* Concepcion Moore DO - 05/14/2023 10:40 AM EDT Images from the original note were not included. [facility] Low Back Pain - Chronic (> 12 weeks) Initial Exam SUBJECTIVE HISTORY OF PRESENT ILLNESS: Marah Silva is a 73 year old female who presents with a chief complaint of low back pain and isseen in consultation requested by Self for an opinion regarding Rt lower back pain. Pt is here for a second opinion from pain mgmt with [facility]. My final recommendations will be communicated back to the requesting physician by way of shared medical record or letter via [place] mail. Other Issues Addressed at the Visit Today: None. Precipitating Event: None PAIN EVALUATION 05/14/2023 1204 Pain Level: 9 Pain Location: -- Rt lower back Description: -- burning Duration Units: Years Frequency: Continuous Intervention/Comfort measure: -- Injections, RFA, Pain mgmt, PT, Medications Pain Radiation: as noted above. Aggravating Factors: Standing long time, Walking distances Alleviating Factors:Sitting Pain Ratio: N/A Prior Therapy: Tylenol 650mg, PT 4 years ago, Pain mgmt injections/RFA, Celebrex, Tylenol #3 PREVIOUS TREATMENTS IN THE LAST SIX MONTHS Active conservative therapy in the last six months (see below) 1. Physical therapy: No 2. Home exercise program after PT: No 3. A physician supervised home exercise program (HEP): No 4. American History Professor: No 5. What are your limitations: Standing long time, Walking distances Passive conservative therapy in the last six months (see below) 1. NSAIDS: None 2. Prescription pain medication: Ultram 3. Acupuncture: No 4. Tens unit: No Litigation: No Workers' Compensation: No YELLOW & BLUE FLAGS No-Neg Attitude; Back Pain is Disabling No-Avoiding Activity (for Fear of Pain) No-Depression or Anxiety Disorders No-Social Problems No-Substance Use Disorder No-Job Dissatisfaction No-Financial Disincentives Patient Entered Questionnaires PROMIS Score Percentiles Percentiles provide an indication of how the patient's score ranks in relation to the general population. Higher percentile rankings indicate better function/quality of life. 50th percentile is the average of the general population and indicates half of respondents had a worse score. 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 PAST MEDICAL HISTORY Diagnosis Date Anxiety Asthma DM (diabetes mellitus) (HCC) GERD (gastroesophageal reflux disease) HTN (hypertension) Hypercholesteremia Hypothyroidism HECTOR (obstructive sleep apnea) does not use c-pap Pseudophakia Both eyes PAST SURGICAL HISTORY Procedure Laterality Date CATARACT SURGERY, COMPLEX CHOLECYSTECTOMY PAST SURGICAL HISTORY OF mastoid surgery x5, inner ear surgery PAST SURGICAL HISTORY OF bone spur left heel SLING OPER STRES INCONTINENCE Social History Tobacco Use Smoking status: Never Smokeless tobacco: Never Vaping Use Vaping Use: Never used Substance Use Topics Alcohol use: Never Drug use: Never FAMILY HISTORY Problem Relation Age of Onset No Ocular Disease Father No Ocular Disease Mother ALLERGIES Allergen Reactions Bactrim [Sulfametho* Ciprofloxacin Unknown Ibuprofen Unknown Morphine Penicillins Zyrtec [Cetirizine * CURRENT MEDICATIONS: olopatadine (PATANOL) 0.1 % ophthalmic solution INSTILL ONE DROP TO BOTH EYES TWICE A DAY Coenzyme Q10 200 mg cap Take 1 capsule by mouth once daily. acetaminophen-codeine (TYLENOL-COD #3) 300-30 mg per tablet (Patient not taking: No sig reported) celecoxib (CELEBREX) 100 mg capsule Take 100 mg by mouth. celecoxib (CELEBREX) 100 mg capsule (Patient not taking: No sig reported) diclofenac potassium (CATAFLAM) 50 mg tablet amLODIPine (NORVASC) 2.5 mg tablet TAKE 1 TABLET DAILY (Patient not taking: No sig reported) aspirin, enteric coated (ASPIRIN, ENTERIC COATED) 81 mg EC tablet Take 81 mg by mouth. atorvastatin (LIPITOR) 10 mg tablet TAKE 1 TABLET DAILY (Patient not taking: No sig reported) fluticasone-salmeterol (ADVAIR, WIXELA) 250-50 mcg/dose inhaler USE 1 INHALATION TWICE A DAY levothyroxine (SYNTHROID) 100 mcg tablet 1 tab qd (Patient not taking: No sig reported) SYNTHROID 88 mcg tablet metFORMIN (GLUCOPHAGE) 1,000 mg tablet Take 1,000 mg by mouth. (Patient not taking: No sig reported) metFORMIN (GLUCOPHAGE) 500 mg tablet TAKE 2 TABLETS EVERY MORNING AND TAKE 1 TABLET EVERY EVENING ramipril (ALTACE) 10 mg capsule TAKE 1 CAPSULE DAILY ramipril (ALTACE) 10 mg capsule (Patient not taking: No sig reported) traMADol (ULTRAM) 50 mg tablet Take 50 mg by mouth. acetaminophen (TYLENOL ORAL) Take 650 mg by mouth as needed. sucralfate (CARAFATE) 1 gram tablet Take 1 g by mouth four times daily. albuterol sulfate (PROAIR DIGIHALER) 90 mcg/actuation aebs Inhale as instructed. pantoprazole DR (PROTONIX) 40 mg tablet Take 40 mg by mouth once daily. ipratropium-albuterol (DUONEB) 0.5 mg-3 mg(2.5 mg base)/3 mL nebu Inhale 3 mL as instructed every 4hours. furosemide (LASIX) 20 mg tablet Take 20 mg by mouth once daily. (Patient not taking: No sig reported) MV with Pyx-Wqajclnd-Gvugeb 0.4 mg-300 mcg- 250 mcg tab Take by mouth. amLODIPine (NORVASC) 2.5 mg tablet Take 2.5 mg by mouth once daily. (Patient not taking: No sig reported) atorvastatin (LIPITOR) 10 mg tablet Take 10 mg by mouth once daily. esomeprazole (NEXIUM) 40 mg capsule Take 40 mg by mouth DAILY (6 AM). BABY ASPIRIN ORAL Take by mouth. (Patient not taking: No sig reported) biotin 1 mg cap Take by mouth. fexofenadine (DELMI) 180 mg tablet Take 180 mg by mouth once daily. (Patient not taking: No sig reported) cyanocobalamin, vitamin B-12, (B-12 DOTS ORAL) Take by mouth. levothyroxine (SYNTHROID) 100 mcg tablet Take 1 tablet by mouth once daily. rosuvastatin (CRESTOR) 20 mg tablet Take 1 tablet by mouth daily at bedtime. ramipril(ALTACE 10 MG TAB) (Patient not taking: No sig reported) metformin hcl(GLUCOPHAGE 500 MG TAB) as directed (Patient not taking: No sig reported) tramadol hcl(ULTRAM 50 MG TAB) Take one (1) or two(2) tablets every eight(8) hours as needed for pain. (Patient not taking: No sig reported) fluticasone/salmeterol(ADVAIR DISKUS 250 MCG-50 MCG/DOSE FOR INHALATION) mometasone furoate(NASONEX 50 MCG/ACTUATION SPRAY) desloratadine(CLARINEX 5 MG TAB) (Patient not taking: No sig reported) REVIEW OF SYSTEMS: PAIN ASSESSMENT: See HPI. GENERAL: Denies fever, chills malaise and weight loss. HEENT: No recent change in vision or hearing. CARDIOVASCULAR: Denies chest pain, history of A-fib, valvular disease, or pacemaker/ICD. RESPIRATORY: Denies SOB, sputum production, and hemoptysis. GI: Denies GI ulcers, inflammatory disease, or liver disease. : Denies change in frequency or urgency, kidney disease, and burning with urination. MUSCULOSKELETAL: None other than noted above SKIN: Denies rash or itching. OBJECTIVE: PHYSICAL EXAM There were no vitals taken for this visit. SIGNATURE: Concepcion Moore DO PATIENT NAME: Marah Silva DATE: May 14, 2023 TIME: 10:40 AM Hip Xrays:04/27/2019 [facility]: Reports to be scanned into EMR or available in the scanned section of EMR There is no acute osseous injury. I agree with the Chief Complaint, ROS, and Past Histories independently gathered by the clinical business support associate and the remaining scribed note accurately describes my personal service to the patient and I have edited the above note to reflect this. See notes for physical exam and treatment plan. CC - Rt lower back pain 08/01. Uses a cane. Standing and walking makes it worse. PHYSICAL EXAM: GENERAL APPEARANCE - well nourished, well hydrated, no apparent distress, forward flexed SKIN - No skin breakdown noted over lumbar spine. HEAD - Normal cephalic, atraumatic EYES - Extra ocular movement intact, no conjunctivitis, no nystagmus. EARS - No drainage noted, pinna intact NOSE - No epistaxis noted THROAT - No thyromegaly, no gross lymphadenopathy LUNGS - Normal respiratory effort, CTA bilaterally CARDIAC - S1S2 VASCULAR - No evidence of peripheral edema, No significant varicosity ABDOMEN - no guarding noted NEURO - Alert and oriented, cooperative, answers questions appropriately GAIT - rt antalgic gait noted. Unable to demonstrate heel and toe stand/walk smoothly. SENSORY EXAM - Grossly intact to superficial light touch bilaterally to lower limbs MOTOR STRENGTH DURING SEATED NEURO EXAM - No apparent weakness bilaterally in Hip flexors, knee extensors, plantar flexors, dorsiflexors and extensor hallux longus. MUSCLE STRETCH REFLEXES - symmetric bilaterally in patella and achilles. Negative Basil's b/l ROM - Lumbar flexion and extension is moderately limited Lateral bending to rt and lt is moderately limited HIP ROM - mild loss in external rotation and internal rotation b/l. KNEE ROM - No significant loss in terminal extension b/l. ANKLE ROM - no significant loss in plantar flexion and dorsiflexion b/l. MUSCLE MASS - No gross muscle atrophy or asymmetry noted bilaterally in lower limb. TENDERNESS - No significant reproduction of pain with palpation of greater trochanter bilaterally. No significant pain with palpation over gluteal muscles. Mild pain with palpation over b/l L3-s1 paraspinous muscles. Negative thigh Thrust b/l Fabers test was negative b/l PACE test was negative b/l Distraction test was negative b/l AMARI SIGNS - 1) Tenderness: Appropriate 2) Simulation/Axial Loading/ROT: Appropriate 3) Distraction: Seated SLR: Appropriate 4) Regional Disturbances: Appropriate 5) Overreaction: Negative. NEURO/PHYSICAL SIGNS: No significant babinski, seated straight leg raising test b/l. Patricks test was negative b/l. RADIOGRAPHY: Reports / films reviewed with patient. Lumbar Xrays:06/08/2012 [facility]: Reports to be scanned into EMR or available in the scanned section of EMR 1. Moderate degenerative disease. Clinical factors will determine the need for further evaluation with MRI.. 2. Atherosclerosis. IMPRESSION: See diagnosis. PLAN: Discussed evidence based options including use of medications, non-surgical and surgical options. Educated about likely pathology and reviewed anatomy and prognosis. At present, pt would like to continue with non surgical care. No neurological deficits noted during [facility] exam. PT - Core stabilization exercises, stretching/ flexibility and strengthening exercises, soft-tissue/ joint mobilization, modalities, body mechanics, posture, and home exercise program. An x-ray of the pelvis ordered to assess for any joint space narrowing, any presence of subchondral sclerosis or subchondral cyst or osteophytes. Lumbar spine X-Rays ordered also. May consider trigger point injection, has seen pain mgmt. On tramadol and baclofen. May secure thiswith original provider. Guarded with overall gains. The majority of the visit was spent counseling and/or coordinating care for the patient on the dateof the service which included preparing to see the patient, [id number] patient care, completing clinical documentation, obtaining and/or reviewing separately obtained history, performing a medically appropriate examination, and educating the patient/family/caregiver and ordering medications, tests, or procedures. Follow up with primary physician for routine care, blood pressure evaluation, labwork, physical exam as scheduled and for any medical concerns. I have answered all the questions regarding patients current diagnosis, care and treatment plan to patients satisfaction during today's visit. Patient verbalize understanding of current diagnosis and treatment plan. Follow up with me as scheduled Notes from todays visit will be forwarded to consulting/requesting physician. Concepcion Moore DO, LISA documented in this encounter[facility] Miscellaneous Notes* Telephone Encounter - Frank Pillai - 05/11/2023 9:26 AM EDT 05/11/2023 LVM documented in this encounterSelect [facility]-17-[facility] Evaluation note* Encounter Date Diagnosis Assessment Notes Treatment Notes Treatment Clinical Notes Apr, Seasonal allergic rhinitis, unspecified trigger (ICD-10 - J30.2) Discussed with patient exam and history is consistent with seasonal allergic rhinitis. Will Rx claritin, Flonase, Tessalon, Zaditor eyedrops for symptomatic treatment. Discussed lungs remain clear. Follow-up with PCP if symptoms or not gradually improving over the next 7 to 10 days, sooner if significantly worsening, fever. Patient verbalized understanding of treatment plan. [facility] Other 05-30-2023 NoteCONSULTATION CONSULTATION DATE: 04/20/2023 TO: [facility] HISTORY: Patient presents today complaining of 5-7/10 pain in her right hip area, described as a sharp, burning pain, increased with activities such as standing, walking and performing transitioning maneuvers. She feels most comfortable in the semi-recumbent position. Denies any change in bowel and bladder habits or new sensorimotor changes in the lower extremities. EXAM: Notable for the patient still having dysesthesia and hyperesthesia overlying the distribution of the lateral cutaneous branch of the iliohypogastric nerve on the right side, and myofascial spasm of the right gluteus medius. 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 She has undergone a diagnostic procedure of the same, under fluoroscopic guidance, with the patient receiving 75-80% reduction of pain symptoms, starting in the immediate post procedural period. However, despite the improvement in her pain symptoms, the patient was a poor historian and was not convinced that it was significant relief for those first two hours. RECOMMENDATIONS: Nevertheless, I have recommended that she consider follow up with the [facility], as the patient is requesting the same. In the interim, I have asked her to discontinue her baclofen secondary to ineffectiveness. To continue with the tramadol until she follows up with her new physician and primary caregivers for pain management at the [facility], and we will facilitate that referral. As part of providing excellent, safe, comprehensive care, the following was completed at our patient's visit: 1. A medication reconciliation and review to ensure accurate knowledge of current/active medications, including asking our patients to inform us about any [id number] medications or herbal remedies/nutritional supplements/alternative remedies. 2. A review to specifically ensure our patients have had annual screening for: elevated body mass index (BMI, see intake chart for exact total), tobacco use, screening for depression, and screening for unhealthy alcohol use. When screening is concerning, patients are provided with education and the specific recommendation to discuss the concerning health issue and treatment options with their primary care provider.[facility] [id number] History of Present illness Narrative* Blayne Haro, OD - 03/29/2023 1:47 PM EDT Sed Rate and CRP normal Blayne Haro, OD March 29, 2023 1:47 PM * Blayne Haro, OD - 03/26/2023 3:00 PM EDT ASSESSMENT/PLAN: 1. Left facial pain - ICD9: 784.0, ICD10: R51.9 (primary diagnosis) Escalating Pain x 2 weeks Pt initially identified it as Eye Pain Dry Eye and corneal epithelial defect treated on 03/10/23 Eye is white and quiet and pt now identifies her pain to be mid face and periocular Consistent with Trigeminal Neuralgia Less likely atypical Zoster without skin lesions Less likely Giant Cell Arteritis Order Sed Rate and CRP Consult to PCP for evaluation and treatment options 2. Keratoconjunctivitis sicca of both eyes not specified as Sjogren's - ICD9: 370.33, ICD10: H16.223 3. Bilateral cornea scars - ICD9: 371.00, ICD10: H17.9 Frequent Artificial tears for comfort 4. Diabetes mellitus type 2 without retinopathy (HCC) - ICD9: 250.00, ICD10: E11.9 No Non proliferative diabetic retinopathy at 03/10/23 eye exam I have confirmed and edited as necessary the relevant ophthalmic history, ROS, and the exam findings as obtained by others. I have seen and examined this patient. I also have reviewed and agree with the assessment and plan as stated above and agree with all of its relevant components. Blayne Haro, MAYLIN March 26, 2023 3:00 PM documented in this encounterSelect [facility]-2023 NoteCONSULTATION CONSULTATION DATE: 02/11/2023 TO: [facility] CHIEF COMPLAINT: Includes right sided hip pain, buttock pain. HISTORY: She reports the pain as being 5-7/10 pain, burning in character. She reports the pain increases with activities such as standing, walking and performing transitioning maneuvers. She also reports light touch is quite painful for the patient in this distribution. She denied any change in bowel and bladder habits or new sensorimotor change in her lower extremities. EXAM: Her examination of the lower extremities is notable for patient having no clinical radiculopathy or myelopathy involving the lower extremities. Nothing to suggest facet loading pain clinically. Patient did have dysesthesia and hypoesthesia long the distribution of the right lateral cutaneous branch of the iliohypogastric nerve, and she had a fair amount of myofascial spasm involving the lumbar paravertebral muscles on the right side. 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 RECOMMENDATIONS: I have placed her on baclofen 10 mg pills, 1-2 pills at h.s. I have asked her to reduce the use of tramadol. I have given her 50 pills to last one month's time, one 50 mg pill b.i.d. as needed and not for daily use. To proceed with a diagnostic right sided lateral cutaneous branch of the iliohypogastric nerve under fluoroscopic guidance.[facility] 12-23-2022 Miscellaneous Notes* Telephone Encounter - Yaquelin Wang - 12/23/2022 3:30 PM EST Called patient and told her about the recommendation to see Dr. Childers in [place]. * Telephone Encounter - Yaquelin Wang - 12/23/2022 9:22 AM EST Patient called in requesting eye drops for her right eye. She states that she is having discharge from the eye. She says that she can smell infection. She is scheduled to see in February. The eye is watery and has a lot of drainage. If prescription is processed she would like it to go to the [facility] on [address] in [place]. Please advise. documented in this encounterSelect [facility]01-17-2023 History of Present illness Narrative* Shanna Woody RN - 12/08/2022 10:45 AM EST Pre-op Instructions For Out-Patient Endoscopy Surgery Medication Instructions: Please stop herbs and any supplements now (includes vitamins and minerals). Please contact your surgeon and prescribing physician for pre-op instructions for any blood thinners. If you have inhalers/aerosol treatments at home, please use them the morning of your surgery and bring the inhalers with you to the hospital. Please take the following medications the morning of your surgery with a sip of water: Inhaler, Ramipril, Amlodipine, Levothyroxine. Surgery Instructions: After midnight before surgery: Do not eat or drink anything, including water, mints, gum, and hard candy. You may brush your teeth without swallowing. No smoking, chewing tobacco, or street drugs. Please shower or bathe before surgery. Please do not wear any cologne, lotion, powder, jewelry, piercings, perfume, makeup, nail paraguayan, hair accessories, or hair spray on the day of surgery. Wear loose comfortable clothing. Leave your valuables at home. Bring a storage case for any glasses/contacts. An adult who is responsible for you MUST drive you home and should be with you for the first 24 hours after surgery. The Day of Surgery: Arrive at [facility] at the time directed by your surgeon and check in at the desk. If you have a living will or healthcare power of employee benefits attorney, please bring a copy. You will be taken to the pre-op holding area where you will be prepared for surgery. A physical assessment will be performed by a nurse practitioner or electrician powerhouse. Your IV will be started and you will meet your anesthesiologist. When you go to surgery, your family will be directed to the surgical waiting room, where the doctorshould speak with them after your surgery. After surgery, you will be taken to the recovery room then when you are awake and stable you will go to the short stay unit for preparation to be discharged. Instructions read to Marah and understanding verbalized. documented in this encounterBON COBALT [facility] ([facility]) HOSPITALHALO2CLOUD Phone: [phone] 860-963512-20-2022 NoteCONSULTATION CONSULTATION DATE: 11/10/2022 CHIEF COMPLAINT: Low back pain right side. HISTORY OF PRESENT ILLNESS: This is a very pleasant, 72-year-old female, who has chronic low back pain. The patient has lumbar degenerative disc disease, lumbar spondylosis. The patient is status post rhizotomy radiofrequency ablation in February. With the change in weather, the patient notes increasing pain. She rates it at times as a 5/10, a sharp pain. The pain occurs before the weather changes. The Voltaren gel helps mitigate her pain as does sitting, transitioning, laying down. Activities such as walking, standing, doing dishes, activities, ADLs, singing in the choir aggravate the patient's pain. The patient takes Tylenol Arthritis when severe. She also uses topical Voltaren gel which she finds helpful, along with her tramadol 50 mg b.i.d. PHYSICAL EXAM: Upon physical examination, this is a pleasant, cooperative female, who does not appear to be in any acute distress. VITAL SIGNS: Stable at 146/82, with a heart rate of 84. At a height of 4'9 , the patient weighs 77 kg. HEAD: Atraumatic. NECK: No crepitus. HEART: No orthopnea. LUNGS: No dyspnea. EXTREMITIES: The patient ambulates without any assistive devices. No pedal edema. MUSCULOSKELETAL: Intact in the lower extremities at 4+/5 bilaterally. BACK: The patient is fluid in her range of motion in standing up, sitting down. NEUROLOGICALLY: The patient is grossly intact. PSYCHIATRICALLY: Affect is appropriate. IMPRESSION: Chronic low back pain, lumbar degenerative disc disease, lumbar spondylosis. PLAN: The patient was instructed to continue with a topical ointment, especially prior to the weather changing, but also tramadol 50 mg b.i.d. will be refilled for her.[facility] [id number] Evaluation note* Encounter Date Diagnosis Assessment Notes Treatment Notes Treatment Clinical Notes Jul, Contact with and (suspected) exposure to other viral communicable diseases (ICD-10 - Z20.828) Jul, Viral upper respiratory infection (ICD-10 - J06.9) Viral upper respiratory infection: adult home care material was printed Drink plenty fluids, get plenty of rest. Continue home medications as prescribed. Follow-up with your family physician if no improvement in 2 to 3 days. Go to the ER for worsening symptoms or concerns. [facility] Other 08-10-2022 NoteCONSULTATION CONSULTATION DATE: 07/01/2022 This is a pleasant 72-year-old female returning to the clinic for a 3-month follow-up for her chronic lower back pain and right hip pain. Today she was complaining of right buttocks pain and hip pain that she feels is affecting her ambulation. She rates it 7 out of 10 and describes it as sharp. 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 She did have bilateral SA RFAs in February of this year which afforded er 40% relief. She does not have radiating pain at this time. She has slight paresthesia to her right buttocks. Medications include Celebrex, Tylenol arthritis, Aspercreme. The patient has attempted to use a cane but feels it gets in her way and she is struggling around her grandchildren and her purse, therefore may be at increased risk of falling. REVIEW OF SYSTEMS, PAST MEDICAL HISTORY, ALLERGIES AND IMAGES: Have been reviewed and noted in the chart. PHYSICAL EXAM: VITAL SIGNS: Blood pressure 166/65, heart rate is 57, temperature is 97.8. Height is 4'9 , weighs 82 kg. GENERAL APPEARANCE: Pleasant, appropriate, in no acute distress but is uncomfortable. FOCUSED EXAM: BACK: Range of motion is guarded in lateral rotation and flexion/extension. Bilateral paravertebral muscles are taut. Right gluteal muscle with trigger point identified, lateral to S1. Compression of that reproduces the patient's pain symptomatology. Right greater trochanteric bursa, tender to compression with positive jump response. This reproduces patient's pain pattern. No reproduction of spinoaxial pain to the lumbar facets upon compression. MUSCULOSKELETAL: Diffuse muscle atrophy is noted to bilateral lower extremities. The patient does walk in a slight forward flexion, slow, steady, antalgic gait. She does not have a cane with her today. NEUROLOGICAL: Patchy hypesthesia noted along L5, and S1 to the right to the level of mid-thigh. Bilateral patellar reflexes are +2. DIAGNOSIS: Right gluteal spasm, right greater trochanteric bursitis and chronic lower back pain. PLAN: She will receive in the clinic today a right greater trochanteric bursa injection as well as right gluteal trigger point injection. She currently does not use heat so education was given on the menthol rubs, heat and stretching. Nutrition and vitamin importance was stressed as well. The patient agrees with the plan of care and will see her in three months unless otherwise indicated.[id number] NotePROCEDURE DATE: 07/01/2022 PRE AND POSTOPERATIVE DIAGNOSIS: Right greater trochanteric bursitis and right gluteal spasm. PROCEDURE: Right greater trochanteric bursa injection; right gluteal trigger point injection. Subsequent to obtaining informed consent, the patient was placed in the upright standing forward flexion position. A 25-gauge needle with 0.125% Marcaine and 40 mg of Kenalog was divided into two locations. The needle was placed to rest inside the right hip bursa, negative heme. Medication was slowly injected. Right gluteal region needle was placed to rest inside the trigger point, negative heme. Medications injected in a fan-like position. The patient tolerated the procedure well with no overt complications. She will be followed up in the office.[facility] [id number] Miscellaneous Notes* Telephone Encounter - Abdiel Leroy - 04/15/2022 9:49 AM EDT Called and spoke with family member. Patient was unable to come to the phone. Left message stating she could be seen today or in the next one to two days. Message from Dr. Damon: I can see her today at 2:30 (book in 3:45 slot), or any open provider within the next 1-2 days. * Telephone Encounter - Abdiel Leroy - 04/15/2022 9:21 AM EDT Patient called stating left eye is having irritation, redness and itching for two days. Patient said they have been using artificial tears but it is not helping. Patient is wanting to know if a prescription could be called in for something or if she needs to be seen first. Please advise. [facility]* Encounter Date Diagnosis Assessment Notes Treatment Notes Treatment Clinical Notes March, Contact with and (suspected) exposure to other viral communicable diseases (ICD-10 - Z20.828) Today test was performed in office. Results are currently negative. That does not mean that you will not develop COVID or do not currently have a low viral count of COVID. The rapid test works best if symptoms have been over 72 hours and the results can vary if you are asymptomatic There is a higher chance of false negative results to occur if testing is performed too soon. It is recommended that even if results are negative and you have been exposed to someone that has COVID that you follow current CDC recommendations. These can be found at CDC.GOV. Follow up with primary care provider if symptoms persist or do not improve *VIRAL URI HANOUT GIVEN ON OTC TREATMENTS, FOLLOW UP AND WHEN TO SEEK EMERGENCY TREATMENT March, Bronchitis (ICD-10 - J40) Bronchitis is inflammation of openings of lungs. It is not caused from bacteria. Antibiotics are not needed to treat this illness. Take medications as directed. Rest and increase fluid intake. Take meds with food to prevent stomach upset. Use inhaler as needed for SOB. Blood sugars may increase due to steroid treatment so eat lower amount of carbs. Follow up with primary care provider if symptoms do not improve with treatment plan, although it may take a few weeks for the cough to go away. March, Other Additional time spent conducting pre-visit phone call, screening for symptoms, instructions on social distancing, application and removal of PPE, and cleaning of examination room, equipment and supplies was preformed. Patient education given for testing methodology and results. Patient care instructions given in writting by [facility] Care At Home document. [facility] [employer] Other 03-31-2022 History of Present illness Narrative* Ava Damon OD - 02/19/2022 11:51 AM EDT ASSESSMENT/PLAN: 1. Diabetes mellitus type 2 without retinopathy (HCC) - ICD9: 250.00, ICD10: E11.9 (primary diagnosis) Controlled. - Continue current medications Encouraged tight blood sugar control. Diabetes carries risk of vision loss if not properly managed. Monitor yearly. 2. Keratoconjunctivitis sicca of both eyes not specified as Sjogren's - ICD9: 370.33, ICD10: H16.223 Continue PF Refresh prn, discussed can use it in the car with AC running. 3. Other chronic allergic conjunctivitis of both eyes - ICD9: 372.14, ICD10: H10.45 No symptoms at this time. Start OTC allergy drops prn during allergy seasons. 4. Bilateral cornea scars - ICD9: 371.00, ICD10: H17.9 OS>>OD. Visually significant OS - longstanding. 5. Pseudophakia of both eyes - ICD9: V43.1, ICD10: Z96.1 Doing well. 6. Retinal pigment epithelial mottling of macula - ICD9: 362.89, ICD10: H35.89 Stable. Ava Damon, MAYLIN I have confirmed and edited as necessary the relevant ophthalmic history, ROS, and the exam findings as obtained by others. I have seen and examined this patient. I have discussed the case and the management of this patient's care with the resident or fellow as appropriate. I also have reviewed andagree with the assessment and plan as stated above and agree with all of its relevant components. Ava Damon OD February 19, 2022 11:51 AM documented in this encounter[facility] Chief complaint Narrative - Reported* MARAH SILVA is being seen for a consultation for abnormal test(s) results. * Patient is a 71-year-old female seen in cardiology consultation at the request of her primary care physician for further assessment regarding chest pain, pressure with increasing frequency that occurs with exertion for the past 1 month. She underwent stress perfusion imaging, details of that outside report are reviewed revealing distal anteroapical perfusion date defect/ischemia with normal left ventricular function. * She has a history of prior heart catheterization in [place] remotely that revealed normal coronary arteries. I had seen her a couple times in 2014 -. * Her comorbidities include diabetes, controlled hypertension, hyperlipidemia, obesity and obstructive sleep apnea. * ECG reveals sinus rhythm with right bundle branch block. And importantly she is not a smoker * Her discomfort is classically described as retrosternal pressure and heaviness radiating to her back with less exertion now occurring nearly on a daily basis. * Informed decision-making process, risk benefits regarding invasive assessment via cardiac catheterization possible revascularization are reviewed with the patient she is willing to proceed and also offered conservative based medical therapies. [facility] [address] DO Work Phone: [phone] 438-445112-13-2010 History of Past illness Narrative* Problem Noted Date Resolved Date Senile cataract, unspecified 11/03/2010 documented as of this encounter (statuses as of 02/19/2022) [facility] History of Past illness Narrative* Problem Noted Date Resolved Date Senile cataract, unspecified 11/03/2010 documented as of this encounter (statuses as of 04/15/2022) [facility] History of Past illness Narrative* Problem Noted Date Resolved Date Senile cataract, unspecified 11/03/2010 documented as of this encounter (statuses as of 12/23/2022) [facility] History of Past illness Narrative* Problem Noted Date Resolved Date Senile cataract, unspecified 11/03/2010 documented as of this encounter (statuses as of 03/29/2023) [facility] History of Past illness Narrative* Problem Noted Date Resolved Date Senile cataract, unspecified 11/03/2010 documented as of this encounter (statuses as of 05/11/2023) [facility] History of Past illness Narrative* Problem Noted Date Resolved Date Senile cataract, unspecified 11/03/2010 documented as of this encounter (statuses as of 05/14/2023) [facility] History of Past illness Narrative* Problem Noted Date Resolved Date Senile cataract, unspecified 11/03/2010 documented as of this encounter (statuses as of 05/14/2023) [facility] Narrative - Johnathon SILVA is being seen for a consultation for abnormal test(s) results.-[facility] [employer] Work Phone: Evaluation note* Diagnosis Diabetes mellitus type 2 without retinopathy (HCC)- Primary Type II or unspecified type diabetes mellitus without mention of complication, not stated as uncontrolled Keratoconjunctivitis sicca of both eyes not specified as Sjogren's Keratoconjunctivitis sicca, not specified as Sjogren's Other 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 Corneal opacity, unspecified Pseudophakia of both eyes Lens replaced by other means Retinal pigment epithelial mottling of macula Other retinal disorders documented in this encounter [facility]* Diagnosis Other iron deficiency anemia documented in this encounter [employer] Phone: evaluation note* Diagnosis Chronic anemia Anemia, unspecified Weight loss Loss of weight Iron deficiency anemia secondary to inadequate dietary iron intake Gastroesophageal reflux disease without esophagitis Esophageal reflux documented in this encounter [facility] [employer] Phone: evaluation note* Diagnosis Left facial pain- Primary Headache Keratoconjunctivitis sicca of both eyes not specified as Sjogren's Keratoconjunctivitis sicca, not specified as Sjogren's Bilateral cornea scars Corneal opacity, unspecified Diabetes mellitus type 2 without retinopathy (HCC) Type II or unspecified type diabetes mellitus without mention of complication, not stated as uncontrolled documented [facility] this encounter [facility]* Diagnosis Spinal stenosis of lumbar region, unspecified whether neurogenic claudication present- Primary Degenerative arthropathy of spinal facet joint Spondylosis of unspecified site without mention of myelopathy Myalgia Mylagia and myositis, unspecified Postural imbalance Disorders of soft tissue, unspecified documented in this encounter [facility] note* Diagnosis Lumbosacral spondylosis without myelopathy- Primary documented in this encounter [facility] note* Diagnosis Diabetes mellitus type 2 without retinopathy (HCC)- Primary Type II or unspecified type diabetes mellitus without mention of complication, not stated as uncontrolled Bilateral cornea scars Corneal opacity, unspecified Keratoconjunctivitis sicca of both eyes not specified as Sjogren's Keratoconjunctivitis sicca, not specified as Sjogren's Other chronic allergic conjunctivitis of both eyes Pseudophakia of both eyes Lens replaced by other means documented in this encounter [facility] note* Diagnosis Other chronic allergic conjunctivitis of both eyes- Primary Keratoconjunctivitis sicca of both eyes not specified as Sjogren's Keratoconjunctivitis sicca, not specified as Sjogren's Bilateral cornea scars Corneal opacity, unspecified Pseudophakia of both eyes Lens replaced by other means documented in this encounter [facility] general Narrative - Reported* Type Description Date Medical History diabetes mellitus Medical History Hypothyroidism Medical History osteoporosis Medical History Chronic obstructive pulmonary di sease Medical History Hearing loss Medical History asthma Surgical History cholecystectomy Surgical History partial hysterectomy Surgical History tonsillectomy Surgical History colonoscopy Surgical History ear surgery Surgical History back ablasion Hospitalization History See Above [facility] Other [place] general Narrative - Reported* Type Description Date Medical History diabetes mellitus Medical History Hypothyroidism Medical History osteoporosis Medical History Chronic obstructive pulmonary di sease Medical History Hearing loss Medical History asthma Surgical History cholecystectomy Surgical History partial hysterectomy Surgical History tonsillectomy Surgical History colonoscopy Surgical History ear surgery Surgical History back ablasion Hospitalization History See Above Hospitalization History blood pressure elevated [facility] Other Reason for referral (narrative)* - Pending Review Specialty Diagnoses / Procedures Referred By Bernardino mcmahan Referred To Contact Physical Therapy Diagnoses Spinal stenosis of lumbar region, unspecified whether neurogenic claudication present Degenerative arthropathy of spinal facet joint Myalgia Postural imbalance Procedures CONSULT [place] [address] [place] [address] Referral ID Status Reason Start Date Expiration Date V isits Requested Visits Authorized [id number] Pending Review 05/14/2023 08/12/2023 1 1 * Diagnostic Procedure Only (Routine) - Closed Specialty Diagnoses / Procedures Referred By Contac t Referred To Contact XR IMAGING Diagnoses Spinal stenosis of lumbar region, unspecified whether neurogenic claudication present Degenerative arthropathy of spinal facet joint Myalgia Postural imbalance Procedures XR PELVIS 1V AP RADIOLOGIC EXAMINATION PELVIS 1/[place] [address] [place] [address] Xr Imaging Referral ID Status Reason Start Date Expiration Date V isits Requested Visits Authorized [id number] Closed Auto-Generate d Referral 05/14/2023 06/12/2024 1 1 * Diagnostic Procedure Only (Routine) - Closed Specialty Diagnoses / Procedures Referred By Contac t Referred To Contact XR IMAGING Diagnoses Spinal stenosis of lumbar region, unspecified whether neurogenic claudication present Degenerative arthropathy of spinal facet joint Myalgia Postural imbalance Procedures XR LUMBAR GENERAL 3V AP/LAT/L5-S1 RADEX SPINE LUMBOSACRAL 2/[place] [address] [place] [address] Xr Imaging Referral ID Status Reason Start Date Expiration Date V isits Requested Visits Authorized [id number] Closed Auto-Generate d Referral 05/14/2023 06/12/2024 1 1 [facility] History of Present Illness * Gay Lin RN - 02/26/2021 1:45 PM EDT Pre-op Instructions For Out-Patient Endoscopy Surgery Medication Instructions: Please stop herbs and any supplements now (includes vitamins and minerals). Please contact your surgeon and prescribing physician for pre-op instructions for any blood thinners. If you have inhalers/aerosol treatments at home, please use them the morning of your surgery and bring the inhalers with you to the hospital. Please take the following medications the morning of your surgery with a sip of water: Inhaler, altace, amlodipine, levothyroxine, protonix, carafate. Surgery Instructions: 1. After midnight before surgery: Do not eat or drink anything, including water, mints, gum, and hard candy. You may brush your teeth without swallowing. No smoking, chewing tobacco, or street drugs. 2. Please shower or bathe before surgery. 3. Please do not wear any cologne, lotion, powder, jewelry, piercings, perfume, makeup, nail paraguayan, hair accessories, or hair spray on the day of surgery. Wear loose comfortable clothing. 4. Leave your valuables at home. Bring a storage case for any glasses/contacts. 5. An adult who is responsible for you MUST drive you home and should be with you for the first 24 hours after surgery. The Day of Surgery: Arrive at [facility] at the time directed by your surgeon and check in at the desk. If you have a living will or healthcare power of employee benefits attorney, please bring a copy. You will be taken to the pre-op holding area where you will be prepared for surgery. A physical assessment will be performed by a nurse practitioner or electrician powerhouse. Your IV will be started and you will meet your anesthesiologist. We are currently limiting visitors to only one designated person in the pre-op holding area. When you go to surgery, your family will be directed to the surgical waiting room, where the doctor shouldspeak with them after your surgery. After surgery, you will be taken to the recovery room then when you are awake and stable you will go to the short stay unit for preparation to be discharged. Only your one designated person is allowed to come to short stay for your discharge. documented in this encounter* Heather Schmitt RN - 03/07/2021 7:25 AM EDT Blood sugar 121 documented in this encounter Advance Directives Documents on File Type Date Recorded Patient Joint Maker Machine Expl anation ACP-Advance Directive ACP-Power of Electronic Warfare Operator Documents on File Type Date Recorded Patient Joint Maker Machine Expl anation ACP-Advance Directive ACP-Power of Electronic Warfare Operator Assessments Diagnosis Pre-op testing- Primary Preoperative examination, unspecified Diagnosis Anemia, unspecified type Discharge Instructions * Instructions* Flor Frausto RN - 03/07/2021 Images from the original note were not included. To see in the office in the next 2 to 3 weeks Sedation or General Anesthesia, Adult Care After Refer to this sheet in the next 24 hours. These instructions provide you with information on caringfor yourself after your procedure. Your caregiver may also give you more specific instructions. Your treatment has been planned according to current medical practices, but problems sometimes occur. Call your caregiver if you have any problems or questions after your procedure. HOME CARE INSTRUCTIONS Do not participate in any activities that require you to be alert or coordinated. Do not: Drive. Swim. Ride a bicycle. Operate heavy machinery. Cook. Use power tools. Climb ladders. Work at heights. Take a bath. Do not drink alcohol. Do not make any important decisions or sign legal documents. Stay with an adult. The first meal following your procedure should be light and small. Avoid solid foods if you feel sick to your stomach (nauseous) or if you throw up (vomit). Drink enough fluids to keep your urine clear or pale yellow. Only take your usual medicines or new medicines if your caregiver approves them. Only take [id number] or prescription medicines for pain, discomfort, or fever as directed by your caregiver. Keep all follow-up appointments as directed by your caregiver. SEEK IMMEDIATE MEDICAL CARE IF: You are not feeling normal or behaving normally after 24 hours. You have persistent nausea and vomiting. You are unable to drink fluids or eat food. You have difficulty urinating. You have difficulty breathing or speaking. You have blue or gomez skin. There is difficulty waking or you cannot be woken up. You have heavy bleeding, redness, or a lot of swelling where the sedative or anesthesia entered your skin (intravenous site). You have a rash. MAKE SURE YOU: Understand these instructions. Will watch your condition. Will get help right away if you are not doing well or get worse. Document Released: 11/08/2006 Document Revised: 05/09/2013 Document Reviewed: 03/08/2013 [facility] [place] Patient Information 2013 [employer]. Colonoscopy: What to Expect at Home Your Recovery After you have a colonoscopy, you will stay at the clinic for 1 to 2 hours until the medicines wearoff. Then you can go home, but you will need to arrange for a ride. Your doctor will tell you when you can eat and do your other usual activities. Your doctor will talk to you about when you will need your next colonoscopy. The results of your test and your risk for colorectal cancer will help your doctor decide how often you need to be checked. After the test, you may be bloated or have gas pains. You may need to pass gas. If a biopsy was done or a polyp was removed, you may have streaks of blood in your stool (feces) for a few days. This care sheet gives you a general idea about how long it will take for you to recover. But each person recovers at a different pace. Follow the steps below to get better as quickly as possible. How can you care for yourself at home? Activity Rest as much as you need to after you go home. You should be able to go back to your usual activities the day after the test. Diet Follow your doctor s directions for eating. Drink plenty of fluids (unless your doctor has told you not to) to replace the fluids that were lost during the colon prep. Do not drink alcohol. Medicines If polyps were removed or a biopsy was done during the test, your doctor may tell you not to take aspirin or other anti-inflammatory medicines, such as ibuprofen (Advil, Motrin) and naproxen (Aleve),for a few days. Other instructions For your safety, you should not drive or operate machinery until the medicine effects are gone and you can think clearly. Your doctor may tell you not to drive or operate machinery until the day after your test. Do not sign legal documents or make major decisions until the medicine effects are gone and you canthink clearly. The anesthesia medicine can make it hard for you to fully understand what you are agreeing to. Follow-up care is a vargas part of your treatment and safety. Be sure to make and go to all appointments, and call your doctor if you are having problems. It's also a good idea to know your test resultsand keep a list of the medicines you take. Call your Doctor if you have any of the following: Passing blood rectally or vomiting blood (it may be red or black). Persistent nausea or vomiting. Severe abdominal or chest pain, not relieved by passing gas. Fever of 100 or more, chills or excessive sweating. Redness or swelling at the IV site. If you experience shortness of breath or severe chest pain, call 911. Where can you learn more? Go to [email or web address] and sign in to your [employer] account. Enter E264 in the Search Health Information box to learn more about Colonoscopy: What to Expect at Home. If you do not have an account, please click on the Sign Up Now link. [phone] [employer]. Care instructions adapted under license by [facility] [email or web address]. This care instruction is for use with your licensed healthcare professional. If you have questions about a medical condition or this instruction, always ask your healthcare professional. [employer] disclaims any warranty or liability for your use of this information. Content Version: [id number]; Last Revised: January 11, 2013 EGD DISCHARGE INSTRUCTIONS Activity: Rest today. No driving, operating machinery, or making any important decisions today. May resume normal activity tomorrow. Diet: Following EGD eat slowly, chew food well, cut food into small pieces-Avoid greasy, spicy, crunchy foods X 48 hours. Call your Doctor if you have any of the following: -Passing blood rectally or vomiting blood (it may be red or black). -Persistent nausea/vomiting -Severe abdominal or chest pain not relieved with passing gas -Fever of 100 degrees or more -Redness or swelling at the IV site -Severe sore throat or neck pain PATIENT INSTRUCTIONS DIVERTICULOSIS FOLLOW-UP: Please make an appointment with your physician as directed. Call your physician immediately if you have any fevers greater than 102.5, increasing abdominal pain, GI bleeding (from the colon or rectum),or nausea/vomiting. CAUSE: Some people may have congenital diverticulosis, but most people develop diverticulosis around or after age 40 due to a low-fiber, high-fat diet, along with inadequate fluid intake. This is very prevalent in the industrialized world where we eat a lot of processed, low fiber foods. Diverticuli develop due to firm stool and high pressures in the colon, along with secondary spasm, which causes outpouchings to occus where the small arteries penetrate the wall of the colon to feed the internal lining. These occur most commonly on the left side and lower portions of the colon. Diverticuli can then cause bleeding from the arteries at these sites of weakness when they rupture or the diveritculi can get blocked with stool and debris and become obstructed, causing diverticulosis, which is due to an infection. When these are infected, diverticulitis, it is often treated with antibiotics andbowel rest, but when severe, recurrent, or if rupture of the colon occurs, it may require surgery. Following appropriate dietary changes and taking the proper precautions is therefore very important. DIET: You should increase your dietary fiber intake and take a fiber supplement twice a day. Make sure that you are taking a supplement that is just fiber and is not a laxative, which should be notedon the package. Starting a fiber supplement may cause increased gas, more frequent bowel movements,and distension at first but this should improve after a couple of weeks. Try to eat whole wheat breads and pasta, more fruits and vegetables, along with brown rice and plenty of fluids. Avoid small undigestible food items that could get stuck in these outpouchings, such as unpopped popcorn kernals,whole corn, small undigestible seeds, etc.. ACTIVITY: Exercise is also a great way to prevent constipation and is encouraged. It may also help prevent progression of your diverticulosis. Always make sure you take in plenty of fluids when exercising. MEDICATIONS: Take an cmsa-csj-nyckeeg fiber supplement as noted above twice daily. If your symptomsdon't improve with fiber and dietary changes alone your physician may also recommend psyllium or methylcellulose as well. If your physician has placed you on an antibiotic it is critical that you take the full course of these, even if your symptoms have improved, and that you not miss any doses. QUESTIONS: Please feel free to call your physician or the hospital spiral machine operator if you have any questions, and they will be glad to assist you. If you have further questions it may also be helpful to meet with a dietitician. High-Fiber Diet What Is Fiber? Dietary fiber is a form of carbohydrate found in plants that cannot be digested by humans. All plants contain fiber, including fruits, vegetables, grains, and legumes. Fiber is often classified into two categories: soluble and insoluble. Soluble fiber draws water into the bowel and can help slow digestion. Examples of foods that are high in soluble fiber include oatmeal, oat bran, barley, legumes (eg, beans and peas), apples, and strawberries. Insoluble fiber speeds digestion and can add bulk to the stool. Examples of foods that are high in insoluble fiber include whole-wheat products, wheat bran, cauliflower, green beans, and potatoes. Why Follow a High-Fiber Diet? A high-fiber diet is often recommended to prevent and treat constipation , hemorrhoids , diverticulitis , and irritable bowel syndrome . Eating a high- fiber diet can also help improve your cholesterol levels, lower your risk of coronary heart disease , reduce your risk of type 2 diabetes , and lower your weight. For people with type 1 or 2 diabetes, a high-fiber diet can also help stabilize bloodsugar levels. How Much Fiber Should I Eat? A high-fiber diet should contain 20-35 grams of fiber a day. This is actually the amount recommended for the general adult population; however, most Americans eat only 15 grams of fiber per day. Digestion of Fiber Eating a higher fiber diet than usual can take some getting used to by your body's digestive system. To avoid the side effects of sudden increases in dietary fiber (eg, gas, cramping, bloating, and diarrhea), increase fiber gradually and be sure to drink plenty of fluids every day. Tips for Increasing Fiber Intake Whenever possible, choose whole grains over refined grains (eg, brown rice instead of white rice, whole-wheat bread instead of white bread). Include a variety of grains in your diet, such as wheat, rye, barley, oats, quinoa, and bulgur. Eat more vegetarian-based meals. Here are some ideas: black rocha burgers, eggplant lasagna, and veggie tofu stir-fcuhs. Choose high-fiber snacks, such as fruits, popcorn, whole-grain crackers, and nuts. Make whole-grain cereal or whole-grain toast part of your daily breakfast regime. When eating out, whether ordering a sandwich or dinner, ask for extra vegetables. When baking, replace part of the white flour with whole-wheat flour. Whole-wheat flour is particularly easy to incorporate into a recipmerline. High-Fiber Diet Eating Guide Food Category Foods Recommended Notes Grains Whole-grain breads, muffins, bagels, or verna bread [place] bread Whole-wheat crackers or crisp breads Whole-grain or bran cereals Oatmeal, oat bran, or grits Wheat germ Whole-wheat pasta and brown rice Read the ingredients list on food labels. Look for products that list whole as the first ingredient (eg, whole-wheat, whole oats). Choose cereals with at least 2 grams of fiber per serving. Vegetables All vegetables, especially asparagus, rocha sprouts, broccoli, [place] sprouts, cabbage, carrots, cauliflower, celery, corn, greens, green beans, green pepper, onions, peas, potatoes (with skin), snow peas, spinach, squash, sweet potatoes, tomatoes, zucchini For maximum fiber intake, eat the peels of fruits and vegetablesjust be sure to wash them well first. Fruits All fruits, especially apples, berries, grapefruits, mangoes, nectarines, oranges, peaches, pears, dried fruits (figs, dates, prunes, raisins) Choose raw fruits and vegetables over juice, cooked, or cannedraw fruit has more fiber. Dried fruitis also a good source of fiber. Milk With the exception of yogurt containing inulin (a type of fiber), dairy foods provide little fiber. Add more fiber by topping your yogurt or cottage cheese with fresh fruit, whole grain or bran cereals, nuts, or seeds. Meats and Beans All beans and peas, especially Garbanzo beans, kidney beans, lentils, lehman beans, split peas, and sutton beans All nuts and seeds, especially almonds, peanuts, [place] nuts, cashews, peanut butter, walnuts, sesame and sunflower seeds All meat, poultry, fish, and eggs Increase fiber in meat dishes by adding sutton beans, kidney beans, black-eyed peas, bran, or oatmeal. If you are following a low-fat diet, use nuts and seeds only in moderation. Fats and Oils All in moderation Fats and oils do not provide fiber Snacks, Sweets, and Condiments Fruit Nuts Popcorn, whole-wheat pretzels, or trail mix made with dried fruits, nuts, and seeds Cakes, breads, and cookies made with oatmeal or whole-wheat flour Most snack foods do not provide much fiber. Choose snacks with at least 2 grams of fiber per serving. Last Reviewed: January 2011 Marlen Matthews MS, MPH, RD Updated: 02/17/2011 * Attachments The following attachments cannot be sent through Care Everywhere. * Esophagitis (Indonesian) documented in this encounter Family History Unknown Family Member Name Dates Details Family history of coronary a rtery disease: Mother, Father, Sister, Brother(V17.3, Z82.49) Status:Active Unknown Family Member Name Dates Details Family history of coronary a rtery disease: Mother, Father, Sister, Brother(V17.3, Z82.49) Status:Active Unknown Family Member Name Dates Details Family history of coronary a rtery disease: Mother, Father, Sister, Brother(V17.3, Z82.49) Status:Active Unknown Family Member Name Dates Details Family history of coronary a rtery disease: Mother, Father, Sister, Brother(V17.3, Z82.49) Status:Active Unknown Family Member Name Dates Details Family history of coronary a rtery disease: Mother, Father, Sister, Brother(V17.3, Z82.49) Status:Active Summary Purpose Additional Source Comments Reason for Visit (unrecogniz ed section and content) Status Reason Specialty Diagnoses / Procedures Re ferred By Contact Referred To Contact Diagnoses Anemia ANEMIA COVID 03/03 Procedures HI ESOPHAGOGASTRODUODENOSCOPY TRANSORAL DIAGNOSTIC HI COLONOSCOPY FLX DX W/COLLJ SPEC WHEN PFRMD EGD COLONOSCOPY DIAGNOSTIC Bobbi Nunez MD [address], [facility] [address] [place] [address] [facility] Reason Comments Keratoconjunctivitis sicca Reason Comments Patient Question Reason Onset Date Comments Opened In Error 12/23/2022 Reason Comments Eye Problem Left Eye Reason Comments Appointment Cancelled Reason Comments Pain Rt lower back pain Reason Comments Medication Question Specialty Diagnoses / Procedures Referred By Contac t Referred To Contact Pain Management Diagnoses Spondylosis without myelopathy or radiculopathy, lumbosacral region Procedures HI NJX DX/THER AGT PVRT FACET JT LMBR/SAC 1 LEVEL HI NJX DX/THER AGT PVRT FACET JT LMBR/SAC 2ND LEVEL Trinidad Licona MD [address] [place] [address] Trinidad Licona MD [address] [place] [address] Referral ID Status Reason Start Date Expiration Date Visits Re quested Visits Authorized [id number] Open 01/05/2024 01/04/2025 1 1 Specialty Diagnoses / Procedures Referred By Contadán t Referred To Contact Pain Management Diagnoses Spondylosis without myelopathy or radiculopathy, lumbosacral region Procedures HI DSTR NROLYTC AGNT PARVERTEB FCT SNGL LMBR/SACRAL HI DSTR NROLYTC AGNT PARVERTEB FCT ADDL LMBR/SACRAL Trinidad Licona MD [address] [place] [address] Trinidad Licona MD [address] [place] [address] Referral ID Status Reason Start Date Expiration Date Visits Re quested Visits Authorized [id number] Open 02/23/2024 05/24/2024 1 1 Reason Comments Diabetic Eye Exam Reason Comments Tearing Both Eyes Reason Comments Medication Problem INFORMATION SOURCE (unrecogn ized section and content) DATE CREATED AUTHOR 09/03/2021 [facility] DATE CREATED AUTHOR AUTHOR'S ORGANIZ ATION 12/26/2022 [facility] DATE CREATED AUTHOR AUTHOR'S ORGANIZ ATION 04/30/2023 [facility] DATE CREATED AUTHOR AUTHOR'S ORGANIZ ATION 05/15/2023 [facility] DATE CREATED AUTHOR AUTHOR'S ORGANIZ ATION 12/03/2023 [facility] DATE CREATED AUTHOR AUTHOR'S ORGANIZ ATION 03/23/2024 [facility] DATE CREATED AUTHOR AUTHOR'S ORGANIZ ATION 06/15/2024 [facility] DATE CREATED AUTHOR AUTHOR'S ORGANIZ ATION 07/27/2024 [facility] DATE CREATED AUTHOR AUTHOR'S ORGANIZ ATION 08/30/2024 [facility] Source Comments (unrecognize d section and content) In the event this informatio n is protected by the Federal Confidentiality of Alcohol and Drug Abuse Patient Records regulations: The Federal rules restrict any use of the information to criminally investigate or prosecute any alcohol or drug abuse patient.[facility] the event this information is protected by the Federal Confidentiality of Alcohol and Drug Abuse Patient Records regulations: The Federal rules restrict any use of the information to criminally investigate or prosecute any alcohol or drug abuse patient.[facility] the event this information is protected by the Federal Confidentiality of Alcohol and Drug Abuse Patient Records regulations: The Federal rules restrict any use of the information to criminally investigate or prosecute any alcohol or drug abuse patient.[facility] the event this information is protected by the Federal Confidentiality of Alcohol and Drug Abuse Patient Records regulations: The Federal rules restrict any use of the information to criminally investigate or prosecute any alcohol or drug abuse patient.[facility] the event this information is protected by the Federal Confidentiality of Alcohol and Drug Abuse Patient Records regulations: The Federal rules restrict any use of the information to criminally investigate or prosecute any alcohol or drug abuse patient.[facility] the event this information is protected by the Federal Confidentiality of Alcohol and Drug Abuse Patient Records regulations: The Federal rules restrict any use of the information to criminally investigate or prosecute any alcohol or drug abuse patient.[facility] the event this information is protected by the Federal Confidentiality of Alcohol and Drug Abuse Patient Records regulations: The Federal rules restrict any use of the information to criminally investigate or prosecute any alcohol or drug abuse patient.[facility] the event this information is protected by the Federal Confidentiality of Alcohol and Drug Abuse Patient Records regulations: The Federal rules restrict any use of the information to criminally investigate or prosecute any alcohol or drug abuse patient.[facility] the event this information is protected by the Federal Confidentiality of Alcohol and Drug Abuse Patient Records regulations: The Federal rules restrict any use of the information to criminally investigate or prosecute any alcohol or drug abuse patient.[facility] the event this information is protected by the Federal Confidentiality of Alcohol and Drug Abuse Patient Records regulations: The Federal rules restrict any use of the information to criminally investigate or prosecute any alcohol or drug abuse patient.[facility] the event this information is protected by the Federal Confidentiality of Alcohol and Drug Abuse Patient Records regulations: The Federal rules restrict any use of the information to criminally investigate or prosecute any alcohol or drug abuse patient.[facility] Care Teams (unrecognized sec tion and content) Medical Diagnostic Radiographer Relationship Specialty Start Date End Date Smith Sheikh MD [address] [place] [address], [place] [address] PCP - General 01/08/14 Medical Diagnostic Radiographer Relationship Specialty Start Date End Date Smith Sheikh MD [address] [place] [address], [place] [address] PCP - General Family Medicine 05/18/13 Medical Diagnostic Radiographer Relationship Specialty Start Date End Date Smith Sheikh MD [address] [place] [address], [place] [address] PCP - General Family Medicine 05/18/13 Medical Diagnostic Radiographer Relationship Specialty Start Date End Date Smith Sheikh MD [address] [place] [address], [place] [address] PCP - General 01/08/14 Medical Diagnostic Radiographer Relationship Specialty Start Date End Date Smith Sheikh MD [address] [place] [address], [place] [address] PCP - General Family Medicine 05/18/13 Medical Diagnostic Radiographer Relationship Specialty Start Date End Date Smith Sheikh MD [address] [place] [address], [place] [address] PCP - General 01/08/14 Medical Diagnostic Radiographer Relationship Specialty Start Date End Date Smith Sheikh MD [address] [place] [address], [place] [address] PCP - General 01/08/14 Medical Diagnostic Radiographer Relationship Specialty Start Date End Date Smith Sheikh MD [address] [place] [address], [place] [address] PCP - General 01/08/14 Medical Diagnostic Radiographer Relationship Specialty Start Date End Date Smith Sheikh MD [address] [place] [address], [place] [address] PCP - General 01/08/14 Medical Diagnostic Radiographer Relationship Specialty Start Date End Date Smith Sheikh MD [address] [place] [address] PCP - General Family Medicine 05/18/13 Medical Diagnostic Radiographer Relationship Specialty Start Date End Date Smith Sheikh MD [address] [place] [address] PCP - General Family Medicine 05/18/13 Medical Diagnostic Radiographer Relationship Specialty Start Date End Date Smith Sheikh MD [address] [place] [address] PCP - General 01/08/14 Medical Diagnostic Radiographer Relationship Specialty Start Date End Date Smith Sheikh MD [address] [place] [address] PCP - General 01/08/14 Medical Diagnostic Radiographer Relationship Specialty Start Date End Date mSith Sheikh MD [address] [place] [address] PCP - General 01/08/14 FOR RECORDS PERTAINING TO PATIENTS WHO ARE OR HAVE BEEN ENROLLED IN A CHEMICAL DEPENDENCY/SUBSTANCEABUSE PROGRAM, SOME INFORMATION MAY BE OMITTED. This clinical summary was aggregated from multiple sources. Caution should be exercised in using it in the provision of clinical care. This summary normalizes information from multiple sources, and as a consequence, information in this document may materially change the coding, format and clinical context of patient data. In addition, data may be omitted in some cases. CLINICAL DECISIONS SHOULD BE BASED ON THE PRIMARY CLINICAL RECORDS. [facility] [employer] [facility]. provides no warranty or guarantee of the accuracy or completeness of information in this document.
[2024-09-29 18:08] VITALS: BP 154/79; PULSE 102; TEMP 36.7; O2SAT 99; BMI 34.8
--- NOTE | 2024-09-29 19:39 | ED_ITS ---
HPI HPI - General Adult General Chief complaint: Upper Respiratory Infection Stated complaint: COUGH, NAUSEA, VOMITING, DIARRHEA Time Seen by Provider: 09/29/24 19:31 Source: patient Mode of arrival: walk-in History of Present Illness HPI narrative: patient states she received an injection 3 days ago of Mounlazarusro. States next day vomiting and diarrhea. States both are black in color. States she took Imodium and the diarrhea improved . Still has nausea and vomiting. Denies any belly pain. States when she eats or drinks she has chest pain. Has not eaten since noon. No fever or shortness of breath. Mild cough. she takes Mobic daily Related Data Home Medications ?Medication ?Instructions ?Recorded ?Confirmed albuterol sulfate 90 mcg/actuation 2 puff inhalation DAILY PRN 01/01/24 09/29/24 aerosol inhaler shortness of breath or wheezing amlodipine 2.5 mg tablet 2.5 mg PO DAILY 01/01/24 09/29/24 aspirin 81 mg tablet,delayed 81 mg PO DAILY 01/01/24 09/29/24 release (Adult Aspirin Regimen) atorvastatin 10 mg tablet 10 mg PO DAILY 01/01/24 09/29/24 benzonatate 100 mg capsule 100 mg PO TID PRN cough 01/01/24 09/29/24 fluticasone 250 mcg-salmeterol 50 1 inh inhalation Q12H 01/01/24 09/29/24 mcg/dose blistr powdr for inhalation levothyroxine 100 mcg tablet 100 mcg PO DAILY 01/01/24 09/29/24 (Synthroid) loratadine 10 mg tablet 10 mg PO DAILY 01/01/24 09/29/24 metformin 500 mg tablet 500 mg PO DAILY 01/01/24 09/29/24 mometasone 50 mcg/actuation nasal 2 spray intranasal DAILY 01/01/24 09/29/24 spray pantoprazole 40 mg tablet,delayed 40 mg PO DAILY 01/01/24 09/29/24 release ramipril 10 mg capsule 10 mg PO DAILY 01/01/24 09/29/24 albuterol 90 mcg/actuation aerosol 90 mcg inhalation QID 09/29/24 09/29/24 inhaler amlodipine 5 mg tablet 2.5 mg PO DAILY 09/29/24 09/29/24 biotin 10,000 mcg disintegrating 10,000 mcg PO DAILY 09/29/24 09/29/24 tablet ferrous sulfate 325 mg (65 mg 325 mg PO BID 09/29/24 09/29/24 iron) tablet (Destinee-Time) fluticasone propionate 50 2 spray intranasal DAILY 09/29/24 09/29/24 mcg/actuation nasal spray,suspension neomycin-polymyxin B-dexameth eye 1 drp ophthalmic (eye) TID 09/29/24 09/29/24 drops,suspension hwtoixer-vnwtsikxk-uyehxnru 3.5 drp ophthalmic (eye) 09/29/24 mg/mL-10,000 unit/mL-0.1% eye drops ondansetron HCl 4 mg tablet 4 mg PO Q8H 09/29/24 09/29/24 ondansetron HCl 4 mg tablet mg 09/29/24 sucralfate 1 gram tablet 1 g PO Q6H 09/29/24 09/29/24 tirzepatide 2.5 mg/0.5 mL 2.5 mg subcut QWEEK 09/29/24 09/29/24 subcutaneous pen injector (Samir) tizanidine 2 mg tablet 2 mg PO Q12H 09/29/24 09/29/24 Previous Rx's ?Medication ?Instructions ?Recorded meloxicam 7.5 mg tablet 7.5 mg PO DAILY PRN pain #10 tabs 07/22/23 meloxicam 7.5 mg tablet 7.5 mg PO DAILY PRN pain #10 tabs 01/01/24 etodolac 300 mg capsule 300 mg PO Q8H PRN pain #20 caps 08/11/24 Allergies Allergy/AdvReac Type Severity Reaction Status Date / Time azithromycin (From Zithromax Allergy Mild Hives Verified 06/18/23 23:25 Z-Rk) cetirizine (From Zyrtec) Allergy Mild Hypertensio Verified 06/18/23 23:25 n ciprofloxacin (From Cipro) Allergy Mild Abdominal Verified 06/18/23 23:25 Pain Sulfa (Sulfonamide Allergy Mild Abdominal Verified 06/18/23 23:25 Antibiotics) Pain sulfamethoxazole (From Allergy Mild Nausea Verified 06/18/23 23:25 Bactrim) trimethoprim (From Bactrim) Allergy Mild Nausea Verified 06/18/23 23:25 Penicillins Allergy Hives Verified 06/18/23 23:25 morphine AdvReac Severe Palpitation Verified 06/18/23 23:25 s Opioid HPI Opioid Management Most Recent Opioid Data: Last Pain Scale 6 08/11/24 12:57 08/11/24 Review of Systems ROS Status of ROS 10 or more systems reviewed and unremark able except as noted in history and below PFSH PFSH Social History Smoking status: Never smoker Little interest or pleasure in doing things: not at all Feeling down, depressed, or hopeless: not at all Exam Constitutional Vital Signs, click to edit/add: Last Vital Signs Temp 98.1 F 09/29/24 18:08 Pulse 93 H 09/29/24 22:03 Resp 20 09/29/24 22:03 BP 129/76 09/29/24 22:03 Pulse Ox 96 09/29/24 22:03 O2 Del Method Room Air 09/29/24 22:03 Common normals: no apparent distress, average body habitus, oriented x3, no limitations, healthy appearing, alert and well nourished Eye Common normals: PERRL and EOMs intact bilaterally Respiratory Common normals: normal respiratory effort, no retractions, no use of accessory muscles and clear to auscultation bilaterally Cardio Common normals: regular rate, regular rhythm, S1 normal heart sound and S2 normal heart sound GI Common normals: Normal to inspection, nondistended, normoactive bowel sounds present, soft to palpation and non-tender Extremity Common normals: normal to inspection Neuro Common normals: oriented x3, CN's II-XII intact bilaterally and moves all extremities Psych Appearance: grossly normal Course Vital Signs Vital signs: Vital Signs Temperature 98.1 F 09/29/24 18:08 Pulse Rate 102 H 09/29/24 18:08 Respiratory Rate 18 09/29/24 18:08 Blood Pressure 154/79 H 09/29/24 18:08 Pulse Oximetry 99 09/29/24 18:08 Oxygen Delivery Method Room Air 09/29/24 18:08 Temperature 98.1 F 09/29/24 18:08 Pulse Rate 93 H 09/29/24 22:03 Respiratory Rate 20 09/29/24 22:03 Blood Pressure 129/76 09/29/24 22:03 Pulse Oximetry 96 09/29/24 22:03 Oxygen Delivery Method Room Air 09/29/24 22:03 Medical Decision Making [facility] Narrative Medical decision making narrative: patient presents with 2 day history of tarry stools and black emesis. Denies abdominal pain. Last emesis around 6pm tonight. Took Imodium for the diarrhea and that has improved. Digital exam with empty vault. smear of tarry stool heme positive. She is anemic with Hgb 8.8. Given dose of protonix IV. Nausea resolved after one dose of zofran. her vital signs remain stable. 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 Patient admitted to hospitalist service cxray with ? small infiltrate left chest. exam finds chest is clear. No cough or dyspnea noted. Lab Data Labs: Lab Results 09/29/24 09/29/24 Range/Units 19:30 20:50 WBC 15.0 H (4.0-11.0) 10^3/uL RBC 2.90 L (4.20-5.40) 10^6/uL Hgb 8.8 L (12.0-16.0) g/dL Hct 27.2 L (36.0-48.0) % MCV 93.8 (81.0-99.0) fL MCH 30.3 (26.7-34.0) pg MCHC 32.4 (29.9-35.2) g/dL RDW 13.7 (11.0-15.0) % Plt Count 255 (150-450) 10^3/uL MPV 9.8 (9.5-13.5) fL Neut % (Auto) 63.6 (43.0-75.0) % Lymph % (Auto) 28.9 (20.5-60.0) % [place] % (Auto) 5.7 (1.7-12.0) % Eos % (Auto) 1.0 (0.9-7.0) % Baso % (Auto) 0.5 (0.2-2.0) % Neut # (Auto) 9.5 H (1.4-6.5) 10^3/uL Lymph # (Auto) 4.3 H (1.2-3.8) 10^3/uL [place] # (Auto) 0.9 H (0.3-0.8) 10^3/uL Eos # (Auto) 0.2 (0.0-0.7) 10^3/uL Baso # (Auto) 0.1 (0.0-0.1) 10^3/uL Abs Immat Gran (auto) 0.04 H (0.00-0.03) 10^3/uL Imm/Tot Granulo (auto) 0.3 (0.0-0.5) % Sodium 140 (136-145) mmol/L Potassium 4.0 (3.5-5.1) mmol/L Chloride 104 (98-107) mmol/L Carbon Dioxide 26.0 (21.0-32.0) mmol/L Anion Gap 14.0 BUN 46.0 H (7.0-18.0) mg/dL Creatinine 0.86 (0.55-1.02) mg/dL Est GFR ( Amer) >60 (>=60 mL/min/1.73m^2) Est GFR (Non-Af Amer) >60 (>=60 mL/min/1.73m^2) BUN/Creatinine Ratio 53.5 Glucose 141 H (74-106) mg/dL Lactate 2.1 H (0.4-2.0) mmol/L Calcium 9.3 (8.5-10.1) mg/dL Total Bilirubin 0.5 (0.2-1.0) mg/dL AST 12 L (15-37) U/L ALT 19 (14-59) U/L Alkaline Phosphatase 73 (46-116) U/L Troponin I High Sens 7.1 (4.0-51.3) pg/mL Total Protein 6.1 L (6.4-8.2) g/dL Albumin 3.0 L (3.4-5.0) g/dL Globulin 3.1 g/dL Albumin/Globulin Ratio 1.0 Lipase 18.0 (16.0-77.0) U/L Stool Occult Blood Positive A Discharge Plan Discharge Chief Complaint: Upper Respiratory Infection Clinical Impression: Acute upper GI bleed Patient Disposition: Admitted As Inpatient
--- NOTE | 2024-09-29 19:42 | PC.NURSE ---
States black stools
--- NOTE | 2024-09-29 19:43 | XR_ITS ---
The [address] [address] Patient Name: EDITH KHOURY MRN: [id number] date: 1950 Sex: F Assigned Patient Location: ER Current Patient Location: ER Accession/Order Number: [id number] Exam Date: 09/29/2024 19:58 Report Date: 09/29/2024 22:08 At the request of: TREVON NAGY Procedure: XR chest 2V EXAMINATION: XR chest 2V, , 09/29/2024 7:58 PM EST INDICATION: cough HISTORY: Ordering Provider Reason for Exam: cough Technologist Note: Additional: COMPARISON: None. TECHNIQUE: Chest x-ray: Two views. FINDINGS: Small opacity is seen in the anterolateral left lung base, which may represent a small infiltrate in the proper clinical setting. No significant pleural effusion or obvious pneumothorax is seen. Heart is normal in size. Bony thorax is unremarkable. XR/XR chest 2V IMPRESSION: Small opacity is seen in the anterolateral left lung base, which may represent a small infiltrate in the proper clinical setting. Electronically authenticated by: SHERYL PAPPAS Date: 09/29/2024 22:08
[2024-09-29 20:19] LABS: Basophils Absolute Auto 0.1 10^3/uL (0.0-0.1); Basophils Percent Auto 0.5 % (0.2-2.0); Eosinophils Absolute Auto 0.2 10^3/uL (0.0-0.7); Hematocrit 27.2 % (36.0-48.0); Hemoglobin 8.8 g/dL (12.0-16.0); Immature Granulocytes Abs Auto 0.04 10^3/uL (0.00-0.03); Immature Granulocytes Pct Auto 0.3 % (0.0-0.5); Lymphocytes Absolute Auto 4.3 10^3/uL (1.2-3.8); Lymphocytes Percent Auto 28.9 % (20.5-60.0); Mean Corpuscular HGB Conc 32.4 g/dL (29.9-35.2); Mean Corpuscular Hemoglobin 30.3 pg (26.7-34.0); Mean Corpuscular Volume 93.8 fL (81.0-99.0); Mean Platelet Volume 9.8 fL (9.5-13.5); Monocytes Absolute Auto 0.9 10^3/uL (0.3-0.8); Monocytes Percent Auto 5.7 % (1.7-12.0); Neutrophils Absolute Auto 9.5 10^3/uL (1.4-6.5); Neutrophils Percent Auto 63.6 % (43.0-75.0); Platelet Count 255 10^3/uL (150-450); Red Cell Distribution Width 13.7 % (11.0-15.0)
[2024-09-29] MEDS: ONDANSETRON PF 4 MG/2 ML VIAL IV (20:36)
[2024-09-29 20:42] LABS: Alanine Aminotransferase 19 U/L (14-59); Alkaline Phosphatase 73 U/L (46-116); Aspartate Amino Transferase 12 U/L (15-37); BUN Creatinine Ratio 53.5; Bilirubin Total 0.5 mg/dL (0.2-1.0); Calcium 9.3 mg/dL (8.5-10.1); Chloride 104 mmol/L (98-107); Estimated GFR (African America >60 (>=60 mL/min/1.73m^2); Estimated GFR (Non-African Ame >60 (>=60 mL/min/1.73m^2); Globulin 3.1 g/dL; Glucose 141 mg/dL (74-106); Lactate/Lactic Acid 2.1 mmol/L (0.4-2.0); Sodium 140 mmol/L (136-145); Total Protein 6.1 g/dL (6.4-8.2); Troponin I High Sensitivity 7.1 pg/mL (4.0-51.3)
[2024-09-29] MEDS: PANTOPRAZOLE SODIUM 40 MG VIAL IV (21:16)
[2024-09-29 21:42] LABS: Internal Control Within Normal Limits; Occult Blood Positive
[2024-09-29 22:03] VITALS: BP 129/76; PULSE 93; O2SAT 96
[2024-09-29 23:12] VITALS: BP 117/75; PULSE 80; TEMP 38.8; O2SAT 95; BMI 34.9
--- OUTSIDE RECORDS SUMMARY | 2024-09-29 23:13 | XMS_ITS | CCD ---
Author Organization [facility] Care Team Providers Care Cigarette Tipper Name Role Phone Smith Sheikh Primary Care Provider Unavailable Unavailable Smith Sheikh MD Primary Care Provi israel Smith Sheikh MD Primary Care Provider Ava Salvador Unavailable Adilia Buck Unavailable Smith Sheikh MD Primary Care Provider Smith Sheikh MD Primary Care Provi israel Alexandre Frazier Attending Unavailable Alexandre Frazier Admitting [facility] UnavailCORBY Sánchez Attending Unavailable CORBY YANEZ Admitting [facility] Unavailable ALEX HUERTA Consulting Unavailable CORBY YANEZ Consulting Unavailable [facility] Primary Care Unavailable LAKSHMIPATHY ., NARENDRANATH Attending Valery vailable LAKSHMIPATHY ., NARENDRANATH Admitting Valery vailable LAKSHMIPATHY ., NARENDRANATH Consulting Valery vailable ARCINIEGA ., DR RONY Reinoso Attending Unavailable [facility] Primary Care Unavailable PAVITHRA .GOGO Consulting Unavailable SUZE ., DR RONY Reinoso Admitting Unavailable LAKSHMIPATHY ., NARENDRANATH Consulting Valery vailable ARCINIEGA ., DR RONY Reinoso Consulting Unavailable [facility] Primary Care Unavailable ARCINIEGA ., DR [...] ARCINIEGA ., DR RONY Reinoso Attending Unavailable RAGOTHAMAN, [...] BILL Vivar Consulting Unavailable Courtney Perez Unavailable [facility] Primary Care Unava ilable CONCEPCION [...] DAMON Referring Unavailable AVA DAMON Attending [facility]available [facility] Primary Care Unava ilable Allergies Allergy Classification Reported Allergen(s) Allergy Type Date of Onset Reaction(s) Facility (20 sources) Cetirizine; Translations: [CETIRIZINE HCL] Drug Allergy 12-20-19 09 [facility] [employer] Phone: (20 sources) Ciprofloxacin; Translations: [Ciprofloxacin HCl TABS] Drug Allergy 05-19-20 13 Unknown [facility] [employer] Phone: (20 sources) Morphine; Translations: [morphine] Drug Allergy 12-20-19 09 chest hurting and breathing issues [employer] Phone: (10 sources) Penicillins; Translations: [PENICILLINS] Propensity to adverse reactions to drug 12-20-19 09 [employer] Phone: (20 sources) Sulfamethoxazole / Trimethoprim; Translations: [SULFAMETHOXAZOLE-T RIMETHOPRIM] Drug Allergy 12-20-19 09 Nausea And Vomiting [employer] Phone: (6 sources) traMADol Drug Allergy 02-27-20 21 Other (See Comments) [employer] Phone: (5 sources) Cetirizine; Translations: [Cetirizine HCl TABS] Drug Allergy [facility] [employer] DO Work Phone: (5 sources) Penicillins; Translations: [Penicillins] Allergy to drug (finding) [facility] [employer] DO Work Phone: (9 sources) Sulfamethoxazole / Trimethoprim; Translations: [Bactrim TABS] Drug Allergy stomach pain [facility] [employer] DO Work Phone: (5 sources) Sulfonamides (Antibiotic); Translations: [Sulfa Drugs] Allergy to drug (finding) [facility] [employer] DO Work Phone: (14 sources) Ibuprofen; Translations: [IBUPROFEN] Drug Allergy 12-07-19 18 Unknown [facility] (2 sources) Penicillins Propensity to adverse reactions 12-20-19 09 [facility] (4 sources) Cetirizine Drug Allergy blood pressure elevated [facility] Other (4 sources) Penicillin G Benzathine Drug allergy rash [facility] Other (2 sources) sulfaSALAzine Drug Allergy Unknown [facility] Other (13 sources) Penicillins Propensity to adverse reactions to drug 12-20-19 09 [facility] [employer] Phone: (3 sources) Cetirizine; Translations: [CETIRIZINE] Drug Allergy 12-20-19 [facility] (1 source) Ciprofloxacin Drug Allergy 12-01-19 [facility] Repository (1 source) Morphine Drug Allergy 12-01-19 [facility] (1 source) Penicillins Drug allergy (disorder) 12-01-19 [facility] (1 source) Sulfamethoxazole Drug Allergy 12-01-19 [facility] (2 sources) Sulfonamides (Antibiotic); Translations: [SULFA (SULFONAMIDE ANTIBIOTICS)] Drug allergy (disorder) 12-01-19 [facility] Repository (1 source) Trimethoprim Drug Allergy 12-01-19 [facility] Repository (1 source) Cetirizine Drug Allergy 08-11-20 15 [facility] Repository (1 source) Ciprofloxacin Drug Allergy 08-11-20 15 [facility] Repository (2 sources) Morphine Drug Allergy 05-05-20 15 [facility] Rep[facility] (2 sources) Penicillins Drug allergy (disorder) 04-28-20 15 [facility] Repository (2 sources) Sulfamethoxazole / Trimethoprim Drug Allergy 05-05-20 15 [facility] Repository (1 source) Sulfonamides (Antibiotic) Drug allergy (disorder) 08-11-20 15 [facility] Repository (2 sources) Substance with sulfonamide structure and antibacterial mechanism of action (substance) Drug allergy Unknown [facility] [employer] Other Medications Current Medications Medication Drug Class(es) Dates Sig (Normalized) Sig (Original) acetaminophen 300 mg / codeine phosphate 30 mg oral tablet (15 sources) Opioid Agonist Start: 09-16-2020 acetaminophen-cod eine (TYLENOL-COD #3) 300-30 mg per tablet 10/13/2020 Active Advair Diskus 250-50 MCG/DOSE (4 sources) take 1 puff(s) by inhalation twice daily Advair Diskus 250-50 MCG/DOSE 1 puff Inhalation Twice a day Active [id number] actuat albuterol 0.09 mg/actuat metered dose [...] Start: 06-17-2023 take 1 capsule by mo [facility] three times daily as needed for cough Benzonatate 200 MG 1 capsule Orally Three times a day prn cough for 10 days Apr, Not-Taking/PRN biotin 1 mg oral capsule (13 sources) biotin 1 mg cap Take by mouth. Active Biotin 19571 MCG TABS Take by mouth 0 Active Comment on above: Take by mouth. Rhbozopxq-SY-Bafknykjmve en (CORICIDIN D COLD/FLU/SINUS PO) (2 sources) Owmyrsuek-LA-Hck ta minophen (CORICIDIN D COLD/FLU/SINUS PO) Take [...] 02-Sep-2021 DO Active take 1 capsule by [facility] once daily, then take 10 capsules by mouth once, then take 10 capsules by mouth Coenzyme Q10 (CO Q 10) 10 MG CAPS Take 10 mg by mouth daily 0 Active Comment on above: Take 1 capsule by [facility] once daily. COMP-AIR NEBULIZER COMPRESSOR (3 sources) [...] / neomycin 3.5 mg/ml / polymyxin b 38847 unt/ml ophthalmic suspension (4 sources) Aminoglycoside Antibacterial, Polymyxin-class Antibacterial, Corticosteroid Start: 4 take 1 drop(s) into the eye(s) three times daily NEOMYCIN-POLYMY APOLLO-DEXAMETH 3.5 MG/ML-10,000 UNIT/ML-0.1% EYE DROPS Use 1 Drop in both eyes three times a day. 5 mL 08/29/2024 Active Start: 11-18-2020 Neomycin-Polym yxin-Dexameth 3.5-10132-9.1 Ophthalmic Ointment Quantity: 3 Refills: 0 Ordered: [...] fur oate(NASONEX 50 MCG/ACTUATION SPRAY) MV with Ldm-Wfqkigfi-Cvqmao 0.4 mg-300 mcg- 250 mcg tab (7 [...] 01/22/2021 04/22/2021 Active take 1 capsule by [facility] twice daily at mealtime CeleBREX 200 MG [...] DO Start : 16-Jun-2021 Complete MV with Ehe-Gmuicymd-Slejtb (CENTRUM SILVER) 0.4-300-250 mg-mcg-mcg tab (4 sources) MV with Wso-Qmhfjfqw-Xybrxy (CENTRUM SILVER) 0.4-300-250 mg-mcg-mcg tab Take by [...] Drop ( AK-DILATE, THERESA-SYNEPHRINE) polyethylene glycol 3350 47549 mg powder for oral solution (8 sources) [...] 04-29-2016 04-29-2016 Chronic Other aftercare (1 source) alf (current) use of aspirin; Translations: [SENIOR LIVING CURRENT USE OF ASPIRIN] Onset: 09-07-2022 Episodic Other aftercare (1 source) Other rn long term care (current) drug therapy; Translations: [OTH SENIOR LIVING CURRENT DRUG THERAPY] Onset: 09-07-2022 Episodic Other aftercare (1 source) 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; Translations: [SENIOR LIVING USE ORAL HYPOGLYCEMIC DX] Onset: 09-07-2022 Episodic Other aftercare (2 sources) Long-term current use of aspirin; Translations: [alf (current) use of aspirin] Onset: 09-07-2022 04-07-2023 Episodic Other aftercare (2 sources) Long-term current use of oral hypoglycemic medication; Translations: [alf (current) use of oral hypoglycemic drugs] Onset: 09-07-2022 04-07-2023 Episodic Other aftercare (2 sources) Long-term current use of drug therapy; Translations: [Other custodial (current) drug therapy] Onset: 09-07-2022 04-07-2023 Episodic [...] 06-13-20 ABSOLUTE BASOPHIL 0.0 X10E9/L Normal 0.0-0.2 [facility] Comment on above: Performed By: #### C JAMES, 51890-5, CMP, 05352-5, 16202-0 #### [facility] ([id number]) [address] [place] [address] 82361 ABSOLUTE NEUTROPHIL 7.1 X10E9/L High 1.5-6.[address] [facility] Comment on above: Performed By: #### C JAMES, 34913-1, CMP, 74435-7, 50737-5 #### [facility] ([id number]) [address] [place] [address] 15220 Basophils/100 WBC (Bld) 0.2 % Normal [facility] Comment on above: Performed By: #### Siria RAMIREZ, 78913-1, CMP, 58203-1, 73431-8 #### [facility] ([id number]) [address] [place] [address] 94875 Eosinophils (Bld) [#/Vol] 0.0 10*3/uL Normal 0.0-0.4 [facility] Comment on above: Performed By: #### Siria RAMIREZ, 51505-9, CMP, 48657-0, 84944-6 #### [facility] ([id number]) [address] [place] [address] 84061 Eosinophils/100 WBC (Bld) 0.0 % Normal [facility] Comment on above: Performed By: #### Siria RAMIREZ, 69493-3, CMP, 22252-2, 46619-6 #### [facility] ([id number]) [address] [place] [address] 34369 Erythrocyte distribution width (RBC) [Ratio] 16.0 % High 11.5-15.0 [facility] Comment on above: Performed By: #### Siria RAMIREZ, 93823-2, CMP, 64002-6, 16184-2 #### [facility] ([id number]) [address] [place] [address] 49292 Hematocrit (Bld) [Volume fraction] 30.8 % Low 35-47 [facility] Comment on above: Performed By: #### C JAMES, 36371-5, CMP, 07369-1, 96328-6 #### [facility] ([id number]) [address] [place] [address] 30250 Hemoglobin (Bld) [Mass/Vol] 10.3 g/dL Low 11.7-15.5 [facility] Comment on above: Performed By: #### C JAMES, 99191-8, CMP, 06908-5, 26203-7 #### [facility] ([id number]) [address] [place] [address] 63902 Lymphocytes (Bld) [#/Vol] 1.0 10*3/uL Normal 1.0-3.5 [facility] Comment on above: Performed By: #### C JAMES, 34162-9, CMP, 43384-4, 00283-8 #### [facility] ([id number]) [address] [place] [address] 81214 Lymphocytes/100 WBC (Bld) 12.1 % Normal [facility] Comment on above: Performed By: #### Siria RAMIREZ, 89136-7, CMP, 15367-2, 10031-7 #### [facility] ([id number]) [address] [place] [address] 76639 MCH (RBC) [Entitic mass] 29.9 pg Normal 27-34 [facility] Comment on above: Performed By: #### C BCA, 13257-0, CMP, 59297-0, 28871-3 #### [facility] ([id number]) [address] [place] [address] 69948 MCHC (RBC) [Mass/Vol] 33.4 g/dL Normal 32-36 [facility] Comment on above: Performed By: #### Siria RAMIREZ, 72160-6, CMP, 47513-9, 50003-1 #### [facility] ([id number]) [address] [place] [address] 15109 MCV (RBC) [Entitic vol] 90 fL Normal 80-100 [facility] Comment on above: Performed By: #### Siria RAMIREZ, 72572-0, CMP, 01974-9, 95101-8 #### [facility] ([id number]) [address] [place] [address] 92597 Monocytes (Bld) [#/Vol] 0.4 10*3/uL Normal 0-0.9 [facility] Comment on above: Performed By: #### Siria RAMIREZ, 80211-9, CMP, 11754-0, 66833-9 #### [facility] ([id number]) [address] [place] [address] 67488 Monocytes/100 WBC (Bld) 4.8 % Normal [facility] Comment on above: Performed By: #### Siria RAMIREZ, 96842-1, CMP, 28279-5, 01267-5 #### [facility] ([id number]) [address] [place] [address] 74665 Neutrophils/100 WBC (Bld) 82.9 % Normal [facility] Comment on above: Performed By: #### Siria RAMIREZ, 12615-3, CMP, 67790-9, 60638-1 #### [facility] ([id number]) [address] [place] [address] 21992 Platelet mean volume (Bld) [Entitic vol] 8.0 fL Normal 7-12 [facility] Comment on above: Performed By: #### Siria RAMIREZ, 41763-9, CMP, 82610-9, 36208-0 #### [facility] ([id number]) [address] [place] [address] 42743 Platelets (Bld) [#/Vol] 200 10*3/uL Normal 150-450 [facility] Comment on above: Performed By: #### C BCA, 17189-2, CMP, 02008-3, 32950-0 #### [facility] ([id number]) [address] [place] [address] 55138 RBC COUNT 3.43 X10E12/L Low 3.80-5.20 [facility] Comment on above: Performed By: #### C BCA, 42717-9, CMP, 16092-5, 66259-5 #### [facility] ([id number]) [address] [place] [address] 49360 WBC (Bld) [#/Vol] 8.5 10*3/uL Normal 4.0-11.0 [facility] Comment on above: Performed By: #### C BCA, 65853-2, CMP, 00053-8, 39239-4 #### [facility] ([id number]) [address] [place] [address] 34068 COMPREHENSIVE METABOLIC PANE Schuyler 06-13-2024 Albumin [Mass/Vol] 3.4 g/dL Normal 3.2-5.3 [facility] Comment on above: Performed By: #### Siria BCA, 25772-6, CMP, 99241-7, 78742-8 #### [facility] ([id number]) [address] [place] [address] 64162 ALP [Catalytic activity/Vol] 69 U/L Normal 39-130 [facility] Comment on above: Performed By: #### C BCA, 17710-9, CMP, 41110-3, 74259-0 #### [facility] ([id number]) [address] [place] [address] 51205 ALT [Catalytic activity/Vol] 34 U/L High 0-31 [facility] Comment on above: Performed By: #### C BCA, 57812-3, CMP, 20991-3, 10361-4 #### [facility] ([id number]) [address] [place] [address] 37542 Anion gap [Moles/Vol] 8 mmol/L Normal 5-15 [facility] Comment on above: Performed By: #### C BCA, 12609-2, CMP, 03303-3, 53403-6 #### [facility] ([id number]) [address] [place] [address] 27407 AST [Catalytic activity/Vol] 31 U/L Normal 0-41 [facility] Comment on above: Performed By: #### C BCA, 85657-4, CMP, 18027-3, 69224-6 #### [facility] ([id number]) [address] [place] [address] 48753 Bilirubin [Mass/Vol] 0.3 mg/dL Normal 0.3-1.[address] [facility] Comment on above: Performed By: #### C BCA, 08339-4, CMP, 04768-4, 55497-3 #### [facility] ([id number]) [address] [place] [address] 93498 Calcium [Mass/Vol] 8.5 mg/dL Normal 8.5-10.5 [facility] Comment on above: Performed By: #### C BCA, 77113-7, CMP, 62880-8, 86054-6 #### [facility] ([id number]) [address] [place] [address] 38060 Chloride [Moles/Vol] 107 mmol/L Normal 98-[address] [facility] Comment on above: Performed By: #### C BCA, 13240-3, CMP, 31884-2, 84892-0 #### [facility] ([id number]) [address] [place] [address] 55241 CO2 [Moles/Vol] 21 mmol/L Low 22-32 [facility] Comment on above: Performed By: #### C BCA, 31158-3, CMP, 87295-0, 57725-7 #### [facility] ([id number]) [address] [place] [address] 08684 Creatinine [Mass/Vol] 0.62 mg/dL Normal 0.40-1.00 [facility] Comment on above: Result Comment: METH OD TRACEABLE TO IDMS STANDARD Performed By: #### C BCA, 56426-4, CMP, 59731-2, 85105-5 #### [facility] ([id number]) [address] [place] [address] 68624 eGFR (CKD-EPI) NON-RACE DEPENDENT >90 Normal >59 [facility] Comment on above: Result Comment: Reported eGFR is based on the CKD-EPI 2020 equation that does not use a race coefficient. Performed By: #### C BCA, 96579-2, CMP, 46700-6, 85953-5 #### [facility] ([id number]) [address] [place] [address] 63476 Glucose [Mass/Vol] 159 mg/dL High 65-99 [facility] Comment on above: Performed By: #### C BCA, 52074-9, CMP, 03744-2, 13516-7 #### [facility] ([id number]) [address] [place] [address] 88117 Potassium [Moles/Vol] 3.8 mmol/L Normal 3.5-5.0 [facility] Comment on above: Performed By: #### C BCA, 39165-3, CMP, 19958-3, 38832-0 #### [facility] ([id number]) [address] [place] [address] 53974 Protein [Mass/Vol] 6.3 g/dL Normal 6.0-8.0 [facility] Comment on above: Performed By: #### C JAMES, 35613-6, CMP, 54276-6, 87376-4 #### [facility] ([id number]) [address] [place] [address] 34507 Sodium [Moles/Vol] 136 mmol/L Normal 134-146 [facility] Comment on above: Performed By: #### C JAMES, 73037-3, CMP, 63752-0, 34839-8 #### [facility] ([id number]) [address] [place] [address] 25031 Urea nitrogen [Mass/Vol] 17 mg/dL Normal 5-27 [facility] Comment on above: Performed By: #### C JAMES, 05444-7, CMP, 88121-5, 89341-3 #### [facility] ([id number]) [address] [place] [address] 37334 Glucose Glucometer (BldC) [M ass/Vol]on 06-13-2024 Glucose [Mass/Vol] 233 mg/dL High 65-99 [facility] Glucose [Mass/Vol] 268 mg/dL High 65-99 [facility] Glucose [Mass/Vol] 153 mg/dL High 65-99 [facility] Glucose [Mass/Vol] 276 mg/dL High 65-99 [facility] MAGNESIUMon 06-13-2024 Magnesium [Mass/Vol] 1.5 mg/dL Low 1.8-2.[address] [facility] Comment on above: Performed By: #### C JAMES, 31122-6, CMP, 79656-1, 32858-9 #### [facility] ([id number]) [address] [place] [address] 19403 Troponin I.cardiac High sens itivity method [Mass/Vol]on 06-13-2024 3 HOUR TROP I, HIGH SENSITIVITY 100 ng/L High <16 [facility] Comment on above: Result Comment: Elevations of hs-Troponin may be due to causes other than myocardial ischemia. Recommend serial hs-Troponin testing be performed. For the initial evaluation and management of chest pain patients, refer to the algorithms linked below. Emergency Patient: [email or web address] uh=[email or web address] Inpatient: [email or web address]& uh=acaea Performed By: #### C BCA, 55606-8, CMP, 91989-2, 96658-5 #### [facility] ([id number]) [address] [place] [address] 83357 1 HOUR TROP I, HIGH SENSITIVITY 116 ng/L High <16 [facility] Comment on above: Result Comment: Elevations of hs-Troponin may be due to causes other than myocardial ischemia. Recommend serial hs-Troponin testing be performed. For the initial evaluation and management of chest pain patients, refer to the algorithms linked below. Emergency Patient: [email or web address] uh=[email or web address] Inpatient: [email or web address]& uh=[email or web address] Performed By: #### C BCA, 86710-4, CMP, 86351-4, 71967-5 #### [facility] ([id number]) [address] [place] [address] 05653 TROPONIN I, HIGH SENSITIVITY 116 ng/L High <16 [facility] Comment on above: Result Comment: Elevations of hs-Troponin may be due to causes other than myocardial ischemia. Recommend serial hs-Troponin testing be performed. For the initial evaluation and management of chest pain patients, refer to the algorithms linked below. Emergency Patient: [email or web address] [email or web address] Inpatient: [email or web address]& uh=acaea Performed By: #### C BCA, 20330-1, CMP, 64685-3, 54250-5 #### [facility] ([id number]) [address] [place] [address] 38270 Beta hydroxybutyrate [Moles/ Vol]on 06-12-2024 BetaHydroxybutyrate 0.20 mmol/L Normal 0.02-0.[address] [facility] Comment on above: Performed By: #### 6 873-4, 19423-5, 82095-0 #### [facility] ([id number]) [address] [place] [address] 40238 CBC AND AUTO DIFFon 06-12-20 ABSOLUTE BASOPHIL 0.0 X10E9/L Normal 0.0-0.2 [facility] Comment on above: Performed By: #### C BCA, 56698-9, CMP, 01045-1, 64150-3 #### [facility] ([id number]) [address] [place] [address] 56150 ABSOLUTE NEUTROPHIL 5.7 X10E9/L Normal 1.5-6.[address] [facility] Comment on above: Performed By: #### C BCA, 96956-9, CMP, 84620-6, 02182-4 #### [facility] ([id number]) [address] [place] [address] 03954 Basophils/100 WBC (Bld) 0.1 % Normal [facility] Comment on above: Performed By: #### C BCA, 36111-3, CMP, 85565-2, 79830-7 #### [facility] ([id number]) [address] [place] [address] 48328 Eosinophils (Bld) [#/Vol] 0.0 10*3/uL Normal 0.0-0.4 [facility] Comment on above: Performed By: #### C JAMES, 72072-4, CMP, 30601-7, 32170-8 #### [facility] ([id number]) [address] [place] [address] 68901 Eosinophils/100 WBC (Bld) 0.0 % Normal [facility] Comment on above: Performed By: #### Siria RAMIREZ, 12085-4, CMP, 72145-6, 49681-1 #### [facility] ([id number]) [address] [place] [address] 93485 Erythrocyte distribution width (RBC) [Ratio] 16.2 % High 11.5-15.0 [facility] Comment on above: Performed By: #### Siria RAMIREZ, 08683-4, CMP, 76044-4, 40437-7 #### [facility] ([id number]) [address] [place] [address] 14983 Hematocrit (Bld) [Volume fraction] 32.5 % Low 35-47 [facility] Comment on above: Performed By: #### Siria RAMIREZ, 29582-3, CMP, 19098-8, 40490-1 #### [facility] ([id number]) [address] [place] [address] 18490 Hemoglobin (Bld) [Mass/Vol] 10.7 g/dL Low 11.7-15.5 [facility] Comment on above: Performed By: #### Siria RAMIREZ, 26035-4, CMP, 60367-1, 28539-0 #### [facility] ([id number]) [address] [place] [address] 36462 Lymphocytes (Bld) [#/Vol] 0.6 10*3/uL Low 1.0-3.5 [facility] Comment on above: Performed By: #### Siria RAMIREZ, 36678-6, CMP, 37032-0, 27234-4 #### [facility] ([id number]) [address] [place] [address] 72997 Lymphocytes/100 WBC (Bld) 8.7 % Normal [facility] Comment on above: Performed By: #### C JAMES, 65353-6, CMP, 60127-3, 09581-5 #### [facility] ([id number]) [address] [place] [address] 89936 MCH (RBC) [Entitic mass] 29.6 pg Normal 27-34 [facility] Comment on above: Performed By: #### Siria RAMIREZ, 64531-3, CMP, 95821-1, 87688-3 #### [facility] ([id number]) [address] [place] [address] 42823 MCHC (RBC) [Mass/Vol] 32.9 g/dL Normal 32-36 [facility] Comment on above: Performed By: #### C JAMES, 59968-8, CMP, 42721-2, 20590-9 #### [facility] ([id number]) [address] [place] [address] 09828 MCV (RBC) [Entitic vol] 90 fL Normal 80-100 [facility] Comment on above: Performed By: #### Siria RAMIREZ, 64667-7, CMP, 74579-6, 59776-0 #### [facility] ([id number]) [address] [place] [address] 64721 Monocytes (Bld) [#/Vol] 0.2 10*3/uL Normal 0-0.9 [facility] Comment on above: Performed By: #### Siria RAMIREZ, 34210-2, CMP, 18185-2, 41290-9 #### [facility] ([id number]) [address] [place] [address] 74101 Monocytes/100 WBC (Bld) 3.3 % Normal [facility] Comment on above: Performed By: #### Siria BCA, 96579-6, CMP, 68241-7, 59345-2 #### [facility] ([id number]) [address] [place] [address] 28829 Neutrophils/100 WBC (Bld) 87.9 % Normal [facility] Comment on above: Performed By: #### Siria BCA, 80259-1, CMP, 82866-1, 55629-9 #### [facility] ([id number]) [address] [place] [address] 82252 Platelet mean volume (Bld) [Entitic vol] 7.7 fL Normal 7-12 [facility] Comment on above: Performed By: #### Siria RAMIREZ, 11295-0, CMP, 07916-8, 79567-1 #### [facility] ([id number]) [address] [place] [address] 51850 Platelets (Bld) [#/Vol] 212 10*3/uL Normal 150-450 [facility] Comment on above: Performed By: #### Siria RAMIREZ, 29279-7, CMP, 25436-8, 72198-7 #### [facility] ([id number]) [address] [place] [address] 23209 RBC COUNT 3.62 X10E12/L Low 3.80-5.20 [facility] Comment on above: Performed By: #### Siria BCA, 30347-8, CMP, 02180-1, 79424-9 #### [facility] ([id number]) [address] [place] [address] 74199 WBC (Bld) [#/Vol] 6.4 10*3/uL Normal 4.0-11.0 [facility] Comment on above: Performed By: #### Siria BCA, 34767-8, CMP, 11796-7, 38959-4 #### [facility] ([id number]) [address] [place] [address] 52654 COMPREHENSIVE METABOLIC PANE Schuyler 06-12-2024 Albumin [Mass/Vol] 3.8 g/dL Normal 3.2-5.3 [facility] Comment on above: Performed By: #### C BCA, 97830-6, CMP, 02782-1, 98266-2 #### [facility] ([id number]) [address] [place] [address] 45370 ALP [Catalytic activity/Vol] 78 U/L Normal 39-130 [facility] Comment on above: Performed By: #### C BCA, 19370-1, CMP, 46978-1, 31705-6 #### [facility] ([id number]) [address] [place] [address] 42422 ALT [Catalytic activity/Vol] 30 U/L Normal 0-31 [facility] Comment on above: Performed By: #### C BCA, 22595-3, CMP, 77066-0, 94429-6 #### [facility] ([id number]) [address] [place] [address] 36964 Anion gap [Moles/Vol] 16 mmol/L High 5-15 [facility] Comment on above: Performed By: #### C BCA, 93089-8, CMP, 06024-0, 91289-0 #### [facility] ([id number]) [address] [place] [address] 56273 AST [Catalytic activity/Vol] 31 U/L Normal 0-41 [facility] Comment on above: Performed By: #### C BCA, 38201-4, CMP, 92007-9, 54719-2 #### [facility] ([id number]) [address] [place] [address] 68916 Bilirubin [Mass/Vol] 0.2 mg/dL Low 0.3-1.[address] [facility] Comment on above: Performed By: #### C BCA, 90668-0, CMP, 29261-6, 49836-7 #### [facility] ([id number]) [address] [place] [address] 92127 Calcium [Mass/Vol] 9.0 mg/dL Normal 8.5-10.5 [facility] Comment on above: Performed By: #### C BCA, 93530-1, CMP, 47140-3, 60577-6 #### [facility] ([id number]) [address] [place] [address] 27514 Chloride [Moles/Vol] 103 mmol/L Normal 98-[address] [facility] Comment on above: Performed By: #### C BCA, 05130-7, CMP, 43264-7, 83419-6 #### [facility] ([id number]) [address] [place] [address] 80496 CO2 [Moles/Vol] 15 mmol/L Low 22-32 [facility] Comment on above: Performed By: #### C BCA, 19004-8, CMP, 08084-4, 93594-8 #### [facility] ([id number]) [address] [place] [address] 42098 Creatinine [Mass/Vol] 0.92 mg/dL Normal 0.40-1.00 [facility] Comment on above: Result Comment: METH OD TRACEABLE TO IDMS STANDARD Performed By: #### C BCA, 97141-6, CMP, 18364-3, 51993-5 #### [facility] ([id number]) [address] [place] [address] 29363 GFR/1.73 sq M.predicted among non-blacks MDRD (S/P/Bld) [Vol rate/Area] 65 mL/min/{1.73_m2} Normal >59 [facility] Comment on above: Result Comment: Reported eGFR is based on the CKD-EPI 2020 equation that does not use a race coefficient. Performed By: #### C BCA, 07730-4, CMP, 62065-6, 97030-0 #### [facility] ([id number]) [address] [place] [address] 80402 Glucose [Mass/Vol] 362 mg/dL High 65-99 [facility] Comment on above: Performed By: #### C BCA, 44102-9, CMP, 32063-2, 99866-4 #### [facility] ([id number]) [address] [place] [address] 81615 Potassium [Moles/Vol] 3.7 mmol/L Normal 3.5-5.0 [facility] Comment on above: Performed By: #### C BCA, 18090-3, CMP, 29367-6, 17641-1 #### [facility] ([id number]) [address] [place] [address] 73850 Protein [Mass/Vol] 6.9 g/dL Normal 6.0-8.0 [facility] Comment on above: Performed By: #### C BCA, 91367-2, CMP, 43534-2, 59480-9 #### [facility] ([id number]) [address] [place] [address] 35162 Sodium [Moles/Vol] 134 mmol/L Normal 134-146 [facility] Comment on above: Performed By: #### C BCA, 80643-4, CMP, 19146-8, 45021-9 #### [facility] ([id number]) [address] [place] [address] 61655 Urea nitrogen [Mass/Vol] 22 mg/dL Normal 5-27 [facility] Comment on above: Performed By: #### C BCA, 90815-9, CMP, 56871-4, 89317-3 #### [facility] ([id number]) [address] [place] [address] 39207 Fibrin D-dimer DDU (PPP) [Ma ss/Vol]on 06-12-2024 D DIMER <150 Normal <255 [facility] Comment on above: Result Comment: Results <255 ng/mL DDU: The presence of a VTE can safely be excluded with a negative D-Dimer result and Wells score. A negative result doesn't exclude the possibility of DIC. The test be repeated along with other diagnostic tests if the patient's symptoms persist or worsen. [email or web address] Performed By: #### C JAMES, 87321-3, HARRISON, 79826-3, 00741-4 #### [facility] ([id number]) [address] [place] [address] 00644 Glucose Glucometer (BldC) [M ass/Vol]on 06-12-2024 Glucose [Mass/Vol] 327 mg/dL High 65-99 [facility] Natriuretic peptide B [Mass/ Vol]on 06-12-2024 Natriuretic peptide B (Bld) [Mass/Vol] 71 pg/mL Normal <100.0 [facility] Comment on above: Performed By: #### C JAMES, 42822-2, HARRISON, 74597-8, 86070-7 #### [facility] ([id number]) [address] [place] [address] 49174 Procalcitonin IA [Mass/Vol]o n 06-12-2024 PROCALCITONIN 0.05 ng/mL High <0.05 [facility] Comment on above: Result Comment: NOTE <0.50 ng/mL - Low risk of severe sepsis and/or septic shock. <2.00 ng/mL - Recommend retesting within 6-24 hours. >2.00 ng/mL - High risk of sepsis and/or septic shock. Performed By: #### 6 873-4, 62059-9, 84961-8 #### [facility] ([id number]) [address] [place] [address], [place] [address] Troponin I.cardiac High sens itivity method [Mass/Vol]on 06-12-2024 1 HOUR TROP I, HIGH SENSITIVITY 10 ng/L Normal <16 [facility] Comment on above: Performed By: #### 6 873-4, 22623-7, 02554-4 #### [facility] ([id number]) [address] [place] [address] 28677 TROPONIN I, HIGH SENSITIVITY 7 ng/L Normal <16 [facility] Comment on above: Performed By: #### C BCA, 40776-3, CMP, 80898-2, 08801-6 #### [facility] ([id number]) [address] [place] [address] 53540 VENOUS BLOOD GASon 4 GALI'S TEST Normal [facility] Comment on above: Performed By: #### V BG #### [facility] ([id number]) [address] [place] [address] 56363 BASE,DEFICIT 9.0 MMOL/L High 0.0-2.0 [facility] Comment on above: Performed By: #### V BG #### [facility] ([id number]) [address] [place] [address] 05586 Body temperature 98.6 [degF] Normal 37.0 [facility] Comment on above: Performed By: #### V BG #### [facility] ([id number]) [address] [place] [address] 92415 HCO3 (Bld) [Moles/Vol] 16.0 mmol/L Low 20.0-24.0 [facility] Comment on above: Performed By: #### V BG #### [facility] ([id number]) [address] [place] [address] 62428 Oxygen saturation in Blood 60.0 % Low >80.0 [facility] Comment on above: Performed By: #### V BG #### [facility] ([id number]) [address] [place] [address] 95196 OXYGEN SOURCE [employer] [facility] Comment on above: Performed By: #### V BG #### [facility] ([id number]) [address] [place] [address] 73540 PCO2, VENOUS 30.0 MMHG Low 35-50 [facility] Comment on above: Performed By: #### V BG #### [facility] ([id number]) [address] [place] [address] 24001 PH, VENOUS 7.334 Normal 7.320-7.420 [facility] Comment on above: Performed By: #### V BG #### [facility] ([id number]) [address] [place] [address] 36608 PO2, VENOUS 33 MMHG Normal 30-50 [facility] Comment on above: Performed By: #### V BG #### [facility] ([id number]) [address] [place] [address] 41007 SAMPLE SITE N/A [facility] Comment on above: Performed By: #### V BG #### [facility] ([id number]) [address] [place] [address] 47581 SAMPLE TYPE VENOUS Normal [facility] Comment on above: Performed By: #### V BG #### [facility] ([id number]) [address] [place] [address] 63198 FLUORO FOR SURGICAL PROCEDUR ESon 03-22-2024 FLUORO FOR SURGICAL PROCEDURES Radiology result is complete; follow up with provider / physician office for radiology results Final result Normal [facility] Glucose,Whole Bloodon 2023 Glucose [Mass/Vol] 95 mg/dL Normal 65-105 [facility] FLUORO FOR SURGICAL PROCEDUR ESon 02-02-2024 FLUORO FOR SURGICAL PROCEDURES Radiology result is complete; follow up with provider / physician office for radiology results Final result Normal [facility] Glucose,Whole Bloodon 2023 Glucose [Mass/Vol] 88 mg/dL Normal 65-105 [facility] POC Glucose Fingerstickon Glucose [Mass/Vol] 88 mg/dL 65 - 105 mg/dL [facility] COVID + FLU Quick Testingon 12-28-2023 SARS-CoV-2 (COVID-19) RNA JAYY+probe Ql (Unsp spec) Negative [facility] Other COVID + FLU Quick Testing Negative [facility] Other FLUORO FOR SURGICAL PROCEDUR ESon 11-08-2023 FLUORO FOR SURGICAL PROCEDURES Radiology result is complete; follow up with provider / physician office for radiology results Final result Normal [facility] No Panel Informationon 05-14 [facility] XR LUMBAR 3V AP/LAT/L5-S1on 05-14-2023 XR LUMBAR [...] severe lumbar spine degenerative change as described. Corporate Licensed Broker: JENNIFER Transcribe Date/Time: May 14 2023 1:53P Dictated by : GABRIELA SANDERSON MD This examination was interpreted and the report reviewed and electronically signed by: GABRIELA SANDERSON MD on May 14 2023 1:54PM EST [id number] [facility] XR PELVIS 1V APon 05-14-2023 XR PELVIS [...] bony erosions. IMPRESSION: Degenerative changes as described. Corporate Licensed Broker: JENNIFER Transcribe Date/Time: May 14 2023 1:52P Dictated by : GABRIELA SANDERSON MD This examination was interpreted and the report reviewed and electronically signed by: GABRIELA SANDERSON MD on May 14 2023 1:53PM EST [id number] CN [facility] C-REACTIVE PROTEIN (CRP)on 0 03-27-2023 CRP [Mass/Vol] <0.9 mg/dL [facility] ESR Westergren method (Bld) [Velocity]on 03-27-2023 ESR (Bld) [Velocity] 8 mm/h 0 - 20 mm/hr [facility] POINT OF CARE GLUCOSEon 04-0 Glucose [Mass/Vol] 133 mg/dL Critically high 74-106 [facility] Comment on above: Performed By: #### P OCGLUC #### [facility] [address] [address] [address] Kris Castillo CBC with Auto Differentialon 12-02-2022 Absolute Eos # 0.20 [facility] Absolute Lymph # 2.10 [facility] Absolute [place] # 0.30 [facility] Basophils (Bld) [#/Vol] 0.00 10*3/uL [facility] Basophils/100 WBC (Bld) 1 % 0 - 2 % [facility] Eosinophils/100 WBC (Bld) 3 % 0 - 4 % [facility] Hematocrit (Bld) [Volume fraction] 33.7 % Low 36 - 46 % [facility] Hemoglobin (Bld) [Mass/Vol] 11.3 g/dL Low 12.0 - 16.0 g/dL [facility] Interpretation and review of laboratory results Abnormal [facility] Lymphocytes/100 WBC (Bld) 36 % 24 - 44 % [facility] MCH (RBC) [Entitic mass] 29.2 pg 26 - 34 pg [facility] MCHC (RBC) [Mass/Vol] 33.5 g/dL 31 - 37 g/dL [facility] MCV (RBC) [Entitic vol] 87.1 fL 80 - 100 fL [facility] Monocytes/100 WBC (Bld) 6 % 1 - 7 % [facility] Platelet distribution width (Bld) [Ratio] 15.9 % High 11.5 - 14.9 % [facility] Platelet mean volume (Bld) [Entitic vol] 7.5 fL 6.0 - 12.0 fL [facility] Platelets (Bld) [#/Vol] 255 10*3/uL [facility] RBC (Bld) [#/Vol] 3.87 10*6/uL Low 4.0 - 5.2 m/uL [facility] Segmented neutrophils/100 WBC (Bld) 54 % 36 - 66 % [facility] Segs Absolute 3.00 [facility] WBC (Bld) [#/Vol] 5.7 10*3/uL [facility] Comprehensive Metabolic Pane schuyler 12-02-2022 Albumin [Mass/Vol] 3.8 g/dL 3.5 - 5.2 g/dL [facility] ALP (Bld) [Catalytic activity/Vol] 79 U/L 35 - 104 U/L [facility] ALT [Catalytic activity/Vol] 14 U/L 5 - 33 U/L [facility] Anion gap [Moles/Vol] 10 mmol/L 9 - 17 mmol/L [facility] AST [Catalytic activity/Vol] 18 U/L NINF - 32 U/L [facility] Bilirubin [Mass/Vol] 0.5 mg/dL 0.3 - 1 .2 mg/dL [facility] Calcium [Mass/Vol] 9.6 mg/dL 8.6 - 10. 4 mg/dL [facility] Chloride [Moles/Vol] 105 mmol/L 98 - 10 7 mmol/L [facility] CO2 [Moles/Vol] 26 mmol/L 20 - 31 mmol/L [facility] Creatinine [Mass/Vol] 0.53 mg/dL 0.50 - 0.90 mg/dL [facility] GFR/1.73 sq M.predicted MDRD (S/P/Bld) [Vol rate/Area] - PINF [facility] Comment on above: Effective Aug 24, 2022 [...] 135 mg/dL High 70 - 99 mg/dL [facility] Interpretation and review of laboratory results Abnormal [facility] Potassium [Moles/Vol] 4.3 mmol/L 3.7 - 5.3 mmol/L [facility] Protein [Mass/Vol] 6.6 g/dL 6.4 - 8.3 g/dL [facility] Sodium [Moles/Vol] 141 mmol/L 135 - 144 mmol/L [facility] Urea nitrogen (BldV) [Mass/Vol] 14 mg/dL 8 - 23 mg/dL [facility] Folateon 12-02-2022 Folate 11 ng/mL 4.8 - PINF ng/mL [facility] Iron and TIBCon 12-02-2022 Iron [Mass/Vol] 81 ug/dL 37 - 145 ug/dL [facility] Iron Saturation 24 % 20 - 55 % [facility] TIBC 338 ug/dL 250 - 450 ug/dL [facility] UIBC 257 ug/dL 112 - 347 ug/dL [facility] Lipaseon 12-02-2022 Lipase [Catalytic activity/Vol] 16 U/L 13 - 60 U/L [facility] No Panel Informationon 12-02 [facility] Reticulocyteson 12-02-2022 Absolute Retic # 0.036 [facility] Retic % 0.9 % 0.5 - 2.0 % [facility] T4, Freeon 12-02-2022 Interpretation and review of laboratory results Abnormal [facility] Thyroxine, Free 1.95 ng/dL High 0.93 - 1.70 ng/dL [facility] TSH With Reflex Ft4on 2022 Interpretation and review of laboratory results Abnormal [facility] TSH Qn 0.08 m[IU]/L Low [facility] Vitamin B12on 12-02-2022 Cobalamin (Vitamin B12) [Mass/Vol] pg/mL High 232 - 1245 pg/mL [facility] Interpretation and review of laboratory results Abnormal [facility] XR WRIST RT MIN 3 Von 2021 [...] by: ALEX HUERTA Date: 2022-09-06 16:27 Normal [facility] LIPID PROFILEon 08-29-2022 CHOL-HDL RATIO NORM SEE BELOW Normal [facility] Comment on above: Result Comment: 3.3 - 4.4 LOW RISK 4.4 - 7.1 AVERAGE RISK 7.1 - 11.0 MODERATE RISK >11.0 HIGH RISK Performed By: #### C MREP #### [facility] [address] [address] [address] Kris Castillo Cholesterol [Mass/Vol] 157 mg/dL Normal <=200 [facility] Comment on above: Performed By: #### C MREP #### [facility] [address] [address] [address] Kris aCstillo Cholesterol in HDL [Mass/Vol] 84 mg/dL Critically high 40-60 [facility] Comment on above: Performed By: #### C MREP #### [facility] [address] [address] [address] Kris Castillo Cholesterol in LDL [Mass/Vol] 62.4 mg/dL Normal [facility] Comment on above: Performed By: #### C MREP #### [facility] [address] [address] [address] Kris Castillo Cholesterol.total/Chol esterol in HDL [Mass ratio] 1.9 {ratio} Normal [facility] Comment on above: Performed By: #### C MREP #### [facility] [address] [place], [place] [address] Dr. Kris Castillo HDL NORMAL > or = 60 mg/dl - LOW CARDIOVASCULAR RISK <40 mg/dl - HIGH CARDIOVASCULAR RISK Normal [facility] Comment on above: Performed By: #### C MREP #### [facility] [address] [place], [place] [address] Dr. Kris Castillo LDL CALC NORMAL SEE BELOW Normal [facility] Comment on above: Result Comment: <100 mg/dl OPTIMAL 100 - 129 mg/dl NEAR OR ABOVE OPTIMAL 130 - 159 mg/dl BORDERLINE HIGH 160 - 189 mg/dl HIGH >190 mg/dl VERY HIGH Performed By: #### C MREP #### [facility] [address] [place] [address] Dr. Kris Castillo Triglyceride [Mass/Vol] 53 mg/dL Normal <=150 [facility] Comment on above: Performed By: #### C MREP #### [facility] [address] [place] [address] Dr. Kris Castillo VLDL CALC 10.6 mg/dL Normal [facility] Comment on above: Performed By: #### C MREP #### [facility] [address] [place] [address] Dr. Kris Castillo CARDIAC ROYA 3-6on 2 CK [Catalytic activity/Vol] 54 U/L Normal 26-192 [facility] Comment on above: Performed By: #### D DIM #### [facility] [address] [place] [address] Dr. Kris Castillo CK.MB [Mass/Vol] 1.12 ng/mL Normal <=3.60 [facility] Comment on above: Performed By: #### D DIM #### [facility] [address] [place] [address] Dr. Kris Castillo HSTROP 8.2 pg/mL Normal 4.0-51.3 [facility] Comment on above: Result Comment: CUT- OFF POINTS HAVE BEEN ESTABLISHED BASED ON THE FOURTH UNIVERSAL DEFINITIONS OF MYOCARDIAL INFARCTION. THE UPPER REFERENCE LIMIT (URL) OF TROPONIN, DEFINED THE 99TH PERCENTILE OF cTnI DISTRIBUTION IN A REFERENCE POPULATION, HAS BEEN CONFIRMED THE DECISION THRESHOLD FOR TN DIAGNOSIS. Performed By: #### D DIM #### [facility] [address] [place] [address] Dr. Kris Castillo CK [Catalytic activity/Vol] 57 U/L Normal 26-192 [facility] Comment on above: Performed By: #### C MREP #### [facility] [address] [place] [address] Dr. Kris Castlilo CK.MB [Mass/Vol] 1.25 ng/mL Normal <=3.60 [facility] Comment on above: Performed By: #### C MREP #### [facility] [address] [address] [address] Kris Castillo HSTROP 7.3 pg/mL Normal 4.0-51.3 [facility] Comment on above: Result Comment: CUT- OFF POINTS HAVE BEEN ESTABLISHED BASED ON THE FOURTH UNIVERSAL DEFINITIONS OF MYOCARDIAL INFARCTION. THE UPPER REFERENCE LIMIT (URL) OF TROPONIN, DEFINED THE 99TH PERCENTILE OF cTnI DISTRIBUTION IN A REFERENCE POPULATION, HAS BEEN CONFIRMED THE DECISION THRESHOLD FOR TN DIAGNOSIS. Performed By: #### C MREP #### [facility] [address] [address] [address] Kris Castillo CARDIAC ROYA ADMITon 022 CK [Catalytic activity/Vol] 86 U/L Normal 26-192 [facility] Comment on above: Performed By: #### D DIM #### [facility] [address] [place] [address] Dr. Kris Castillo CK.MB [Mass/Vol] 1.65 ng/mL Normal <=3.60 [facility] Comment on above: Performed By: #### D DIM #### [facility] [address] [place] [address] Dr. Kris Castillo HSTROP 6.2 pg/mL Normal 4.0-51.3 [facility] Comment on above: Result Comment: CUT- OFF POINTS HAVE BEEN ESTABLISHED BASED ON THE FOURTH UNIVERSAL DEFINITIONS OF MYOCARDIAL INFARCTION. THE UPPER REFERENCE LIMIT (URL) OF TROPONIN, DEFINED THE 99TH PERCENTILE OF cTnI DISTRIBUTION IN A REFERENCE POPULATION, HAS BEEN CONFIRMED THE DECISION THRESHOLD FOR TN DIAGNOSIS. Performed By: #### D DIM #### [facility] [address] [place] [address] Dr. Kris Castillo RAMSES 34 ng/mL Normal 9-82 [facility] Comment on above: Performed By: #### D DIM #### [facility] [address] [place] [address] Dr. Kris Castillo CBC AUTO DIFFon 08-28-2022 BASO # 0.1 103/ul Normal 0.0-0.1 [facility] Comment on above: Performed By: #### C BC #### [facility] [address] [address] [address] Kris Castillo Basophils/100 WBC (Bld) 0.6 % Normal 0.2-2.0 [facility] Comment on above: Performed By: #### C BC #### [facility] [address] [place] [address] Dr. Kris Castillo EO # 0.3 103/ul Normal 0.0-0.7 [facility] Comment on above: Performed By: #### C BC #### [facility] [address] [place] [address] Dr. Kris Castillo Eosinophils/100 WBC (Bld) 3.8 % Normal 0.9-7.0 [facility] Comment on above: Performed By: #### C BC #### [facility] [address] [place] [address] Dr. Kris Castillo Erythrocyte distribution width (RBC) [Ratio] 16.2 % Critically high 11.0-15.0 [facility] Comment on above: Performed By: #### C BC #### [facility] [address] [place] [address] Dr. Kris Castillo Hematocrit (Bld) [Volume fraction] 34.7 % Critically low 36.0-48.0 [facility] Comment on above: Performed By: #### C BC #### [facility] [address] [place] [address] Dr. Kris Castillo Hemoglobin (Bld) [Mass/Vol] 10.8 g/dL Critically low 12.0-16.0 [facility] Comment on above: Performed By: #### C BC #### [facility] [address] [place] [address] Dr. Kris Castillo IG # 0.02 10e3/ul Normal 0.00-0.03 [facility] Comment on above: Performed By: #### C BC #### [facility] [address] [place] [address] Dr. Kris Castillo IG % 0.3 % Normal 0.0-0.5 [facility] Comment on above: Performed By: #### C BC #### [facility] [address] [place] [address] Dr. Kris Castillo LYMPH # 2.2 103/ul Normal 1.2-3.8 [facility] Comment on above: Performed By: #### C BC #### [facility] [address] [place] [address] Dr. Kris Castillo Lymphocytes/100 WBC (Bld) 27.9 % Normal 20.5-60.0 [facility] Comment on above: Performed By: #### C BC #### [facility] [address] [place] [address] Dr. Kris Castillo MANUAL DIFF REQ NO Normal [facility] Comment on above: Performed By: #### C BC #### [facility] [address] [place] [address] Dr. Kris Castillo MCH (RBC) [Entitic mass] 27.7 pg Normal 26.7-34.0 [facility] Comment on above: Performed By: #### C BC #### [facility] [address] [place] [address] Dr. Kris Castillo MCHC (RBC) [Mass/Vol] 31.1 g/dL Normal 29.9-35.2 [facility] Comment on above: Performed By: #### C BC #### [facility] [address] [place] [address] Dr. Kris Castillo MCV (RBC) [Entitic vol] 89.0 fL Normal 81.0-99.0 [facility] Comment on above: Performed By: #### C BC #### [facility] [address] [place] [address] Dr. Kris Castillo MONO # 0.6 103/ul Normal 0.3-0.8 [facility] Comment on above: Performed By: #### C BC #### [facility] [address] [place] [address] Dr. Kris Castillo Monocytes/100 WBC (Bld) 7.6 % Normal 1.7-12.0 [facility] Comment on above: Performed By: #### C BC #### [facility] [address] [place] [address] Dr. Kris Castillo NEUT # 4.7 103/ul Normal 1.4-6.5 [facility] Comment on above: Performed By: #### C BC #### [facility] [address] [place] [address] Dr. Kris Castillo Neutrophils/100 WBC (Bld) 59.8 % Normal 43.0-75.0 [facility] Comment on above: Performed By: #### C BC #### [facility] [address] [place] [address] Dr. Kris Castillo Platelet mean volume (Bld) [Entitic vol] 9.5 fL Normal 9.5-13.5 [facility] Comment on above: Performed By: #### C BC #### [facility] [address] [place] [address] Dr. Kris Castillo PLT 264 103/ul Normal 150-450 [facility] Comment on above: Performed By: #### C BC #### [facility] [address] [place] [address] Dr. Kris Castillo RBC 3.90 106/ul Critically low 4.20-5.40 [facility] Comment on above: Performed By: #### C BC #### [facility] [address] [place] [address] Dr. Kris Castillo WBC 7.9 103/ul Normal 4.0-11.0 [facility] Comment on above: Performed By: #### C BC #### [facility] [address] [place] [address] Dr. Kris Castillo [facility]on SARS-CoV-2 (COVID-19) RNA JAYY+probe Ql (Unsp spec) Not detected Normal NOT DETECTED [facility] Comment on above: Result Comment: When [...] for this test is supported by the Disintegrator Operator of Health and Human Service's declaration that [...] used). Performed By: #### C VDTBH #### [facility] [address] [place] [address] Dr. Kris Castillo D-DIMERon 08-28-2022 D-DIMER 0.48 mg/L FEU Normal <=0.59 [facility] Comment on above: Performed By: #### D DIM #### [facility] [address] [place] [address] Dr. Kris Castillo D-DIMER COMMENTS SEE BELOW Normal [facility] Comment on above: Result Comment: Incr eases [...] hospitalization. Performed By: #### D DIM #### [facility] [address] [place] [address] Dr. Kris Castillo LIPID PROFILEon 08-28-2022 CHOL-HDL RATIO NORM SEE BELOW Normal [facility] Comment on above: Result Comment: 3.3 - 4.4 LOW RISK 4.4 - 7.1 AVERAGE RISK 7.1 - 11.0 MODERATE RISK >11.0 HIGH RISK Performed By: #### D DIM #### [facility] [address] [place] [address] Dr. Kris Castillo Cholesterol [Mass/Vol] 151 mg/dL Normal <=200 [facility] Comment on above: Performed By: #### D DIM #### [facility] [address] [address] [address] Kris Castillo Cholesterol in HDL [Mass/Vol] 77 mg/dL Critically high 40-60 [facility] Comment on above: Performed By: #### D DIM #### [facility] [address] [address] [address] Kris Castillo Cholesterol in LDL [Mass/Vol] 65.6 mg/dL Normal [facility] Comment on above: Performed By: #### D DIM #### [facility] [address] [address] [address] Kris Castillo Cholesterol.total/Chol esterol in HDL [Mass ratio] 2.0 {ratio} Normal [facility] Comment on above: Performed By: #### D DIM #### [facility] [address] [address] [address] Kris Castillo HDL NORMAL > or = 60 mg/dl - LOW CARDIOVASCULAR RISK <40 mg/dl - HIGH CARDIOVASCULAR RISK Normal [facility] Comment on above: Performed By: #### D DIM #### [facility] [address] [address] [address] Kris Castillo LDL CALC NORMAL SEE BELOW Normal [facility] Comment on above: Result Comment: <100 mg/dl OPTIMAL 100 - 129 mg/dl NEAR OR ABOVE OPTIMAL 130 - 159 mg/dl BORDERLINE HIGH 160 - 189 mg/dl HIGH >190 mg/dl VERY HIGH Performed By: #### D DIM #### [facility] [address] [address] [address] Kris Castillo Triglyceride [Mass/Vol] 42 mg/dL Normal <=150 [facility] Comment on above: Performed By: #### D DIM #### [facility] [address] [address] [address] Kris Castillo VLDL CALC 8.4 mg/dL Normal [facility] Comment on above: Performed By: #### D DIM #### [facility] [address] [address] [address] Kris Castillo POINT OF CARE GLUCOSEon 10-0 Glucose [Mass/Vol] 108 mg/dL Critically high 74-106 [facility] Comment on above: Performed By: #### D DIM #### [facility] [address] [place] [address] Dr. Kris Castillo PROF 14(COMP METB)on 022 Albumin [Mass/Vol] 3.4 g/dL Normal 3.4-5.0 [facility] [place] [facility] Comment on above: Performed By: #### D DIM #### [facility] [address] [place] [address] Dr. Kris Castillo Albumin/Globulin [Mass ratio] 0.9 {ratio} Normal [facility] Comment on above: Performed By: #### D DIM #### [facility] [address] [place] [address] Dr. Kris Castillo ALP [Catalytic activity/Vol] 88 U/L Normal 46-116 [facility] Comment on above: Performed By: #### D DIM #### [facility] [address] [place] [address] Dr. Kris Castillo ALT [Catalytic activity/Vol] 16 U/L Normal 14-59 [facility] Comment on above: Performed By: #### D DIM #### [facility] [address] [place] [address] Dr. Kris Castillo Anion gap [Moles/Vol] 9.5 mmol/L Normal [facility] Comment on above: Performed By: #### D DIM #### [facility] [address] [place] [address] Dr. Kris Castillo AST [Catalytic activity/Vol] 18 U/L Normal 15-37 [facility] Comment on above: Performed By: #### D DIM #### [facility] [address] [place] [address] Dr. Kris Castillo Bilirubin [Mass/Vol] 0.5 mg/dL Normal 0.2-1.0 [facility] Comment on above: Performed By: #### D DIM #### [facility] [address] [place] [address] Dr. Kris Castillo Calcium [Mass/Vol] 9.7 mg/dL Normal 8.5-10.1 [facility] [place] [facility] Comment on above: Performed By: #### D DIM #### [facility] [address] [place] [address] Dr. Kris Castillo Chloride [Moles/Vol] 103 mmol/L Normal 98-107 [facility] Comment on above: Performed By: #### D DIM #### [facility] [address] [place] [address] Dr. Kris Castillo CO2 [Moles/Vol] 28.4 mmol/L Normal 21.0-32.0 [facility] Comment on above: Performed By: #### D DIM #### [facility] [address] [place] [address] Dr. Kris Castillo Creatinine [Mass/Vol] 0.78 mg/dL Normal 0.55-1.02 [facility] Comment on above: Performed By: #### D DIM #### [facility] [address] [place] [address] Dr. Kris Castillo EGFR-AF MONTENEGRIN >60 Normal >=60 [facility] Comment on above: Performed By: #### D DIM #### [facility] [address] [place] [address] Dr. Kris Castillo EGFR-NON AF MONTENEGRIN >60 Normal >=60 [facility] Comment on above: Performed By: #### D DIM #### [facility] [address] [place] [address] Dr. Kris Castillo Globulin (S) [Mass/Vol] 3.6 g/dL Normal [facility] Comment on above: Performed By: #### D DIM #### [facility] [address] [place] [address] Dr. Kris Castillo Glucose [Mass/Vol] 111 mg/dL Critically high 74-106 [facility] Comment on above: Performed By: #### D DIM #### [facility] [address] [place] [address] Dr. Kris Castillo Potassium [Moles/Vol] 3.9 mmol/L Normal 3.5-5.1 [facility] Comment on above: Performed By: #### D DIM #### [facility] [address] [place], [place] [address] Dr. Kris Castillo Protein [Mass/Vol] 7.0 g/dL Normal 6.4-8.2 [facility] [place] [facility] Comment on above: Performed By: #### D DIM #### [facility] [address] [place], [place] [address] Dr. Kris Castillo Sodium [Moles/Vol] 137 mmol/L Normal 136-145 [facility] Comment on above: Performed By: #### D DIM #### [facility] [address] [place], [place] [address] Dr. Kris Castillo Urea nitrogen [Mass/Vol] 21.0 mg/dL Critically high 7.0-18.0 [facility] Comment on above: Performed By: #### D DIM #### [facility] [address] [place], [place] [address] Dr. Kris Castillo Urea nitrogen/Creatinine [Mass ratio] 26.9 mg/mg Normal [facility] Comment on above: Performed By: #### D DIM #### [facility] [address] [place], [place] [address] Dr. Kris Castillo XR CHEST 1 Von [...] GABRIELA MITTAL Date: 2022-08-28 02:26 Normal [facility] CULTURE URINEon 07-27-2022 CULTURE URINE Isolate [...] Trimethoprim/Sulfame thoxazole >=320 R F Normal [facility] Comment on above: Performed By: #### D DIM #### [facility] [address] [place] [address] Dr. Kris Castillo ACETONE SERUMon 07-25-2022 ACETONE Negative Normal NEGATIVE [facility] Comment on above: Performed By: #### C MREP #### [facility] [address] [place] [address] Dr. Kris Castillo BNPon 07-25-2022 Natriuretic peptide B (Bld) [Mass/Vol] 111.0 pg/mL Normal <=900.0 [facility] Comment on above: Performed By: #### C MREP #### [facility] [address] [place] [address] Dr. Kris Castillo CARDIAC ROYA ADMITon 022 CK [Catalytic activity/Vol] 61 U/L Normal 26-192 [facility] Comment on above: Performed By: #### C MREP #### [facility] [address] [place] [address] Dr. Kris Castillo CK.MB [Mass/Vol] 1.55 ng/mL Normal <=3.60 [facility] Comment on above: Performed By: #### C MREP #### [facility] [address] [place] [address] Dr. Kris Castillo HSTROP 7.1 pg/mL Normal 4.0-51.3 [facility] Comment on above: Result Comment: CUT- OFF POINTS HAVE BEEN ESTABLISHED BASED ON THE FOURTH UNIVERSAL DEFINITIONS OF MYOCARDIAL INFARCTION. THE UPPER REFERENCE LIMIT (URL) OF TROPONIN, DEFINED THE 99TH PERCENTILE OF cTnI DISTRIBUTION IN A REFERENCE POPULATION, HAS BEEN CONFIRMED THE DECISION THRESHOLD FOR TN DIAGNOSIS. Performed By: #### C MREP #### [facility] [address] [place] [address] Dr. Kris Castillo RAMSES 29 ng/mL Normal 9-82 [facility] Comment on above: Performed By: #### C MREP #### [facility] [address] [place] [address] Dr. Kris Castillo CBC AUTO DIFFon 07-25-2022 BASO # 0.1 103/ul Normal 0.0-0.1 [facility] Comment on above: Performed By: #### C BC #### [facility] [address] [place] [address] Dr. Kris Castillo Basophils/100 WBC (Bld) 0.6 % Normal 0.2-2.0 [facility] Comment on above: Performed By: #### C BC #### [facility] [address] [place] [address] Dr. Kris Castillo EO # 0.2 103/ul Normal 0.0-0.7 [facility] Comment on above: Performed By: #### C BC #### [facility] [address] [place] [address] Dr. Kris Castillo Eosinophils/100 WBC (Bld) 2.6 % Normal 0.9-7.0 [facility] Comment on above: Performed By: #### C BC #### [facility] [address] [place] [address] Dr. Kris Castillo Erythrocyte distribution width (RBC) [Ratio] 17.4 % Critically high 11.0-15.0 [facility] Comment on above: Performed By: #### C BC #### [facility] [address] [place] [address] Dr. Kris Castillo Hematocrit (Bld) [Volume fraction] 34.5 % Critically low 36.0-48.0 [facility] Comment on above: Performed By: #### C BC #### [facility] [address] [place] [address] Dr. Kris Castillo Hemoglobin (Bld) [Mass/Vol] 11.0 g/dL Critically low 12.0-16.0 [facility] Comment on above: Performed By: #### C BC #### [facility] [address] [place] [address] Dr. Kris Castillo IG # 0.03 10e3/ul Normal 0.00-0.03 [facility] Comment on above: Performed By: #### C BC #### [facility] [address] [place] [address] Dr. Kris Castillo IG % 0.3 % Normal 0.0-0.5 [facility] Comment on above: Performed By: #### C BC #### [facility] [address] [place] [address] Dr. Kris Castillo LYMPH # 2.0 103/ul Normal 1.2-3.8 [facility] Comment on above: Performed By: #### C BC #### [facility] [address] [place] [address] Dr. Kris Castillo Lymphocytes/100 WBC (Bld) 21.8 % Normal 20.5-60.0 [facility] Comment on above: Performed By: #### C BC #### [facility] [address] [place] [address] Dr. Kris Castillo MANUAL DIFF REQ NO Normal [facility] Comment on above: Performed By: #### C BC #### [facility] [address] [place] [address] Dr. Kris Castillo MCH (RBC) [Entitic mass] 27.8 pg Normal 26.7-34.0 [facility] Comment on above: Performed By: #### C BC #### [facility] [address] [place] [address] Dr. Kris Castillo MCHC (RBC) [Mass/Vol] 31.9 g/dL Normal 29.9-35.2 [facility] Comment on above: Performed By: #### C BC #### [facility] [address] [place] [address] Dr. Kris Castillo MCV (RBC) [Entitic vol] 87.3 fL Normal 81.0-99.0 [facility] Comment on above: Performed By: #### C BC #### [facility] [address] [address] [address] Kris Castillo MONO # 0.5 103/ul Normal 0.3-0.8 [facility] Comment on above: Performed By: #### C BC #### [facility] [address] [address] [address] Kris Castillo Monocytes/100 WBC (Bld) 5.9 % Normal 1.7-12.0 [facility] Comment on above: Performed By: #### C BC #### [facility] [address] [address] [address] Kris Castillo NEUT # 6.2 103/ul Normal 1.4-6.5 [facility] Comment on above: Performed By: #### C BC #### [facility] [address] [place] [address] Dr. Kris Castillo Neutrophils/100 WBC (Bld) 68.8 % Normal 43.0-75.0 [facility] Comment on above: Performed By: #### C BC #### [facility] [address] [address] [address] Kris Castillo Platelet mean volume (Bld) [Entitic vol] 9.5 fL Normal 9.5-13.5 [facility] Comment on above: Performed By: #### C BC #### [facility] [address] [address] [address] Kris Castillo PLT 231 103/ul Normal 150-450 [facility] Comment on above: Performed By: #### C BC #### [facility] [address] [address] [address] Kris Castillo RBC 3.95 106/ul Critically low 4.20-5.40 [facility] Comment on above: Performed By: #### C BC #### [facility] [address] [address] [address] Kris Castillo WBC 9.0 103/ul Normal 4.0-11.0 [facility] Comment on above: Performed By: #### C BC #### [facility] [address] [address] [address] HEAD WO CONon [...] ears demonstrate no substantial mucosal disease. Bilateral [place] ocular lens replacement.Nonspeci fic calcifications are present [...] ASTRID RODRIGUEZ Date: 2022-07-25 12:48 Normal [facility] ER URINE PROFILEon 2 Bilirubin Ql (U) Negative Normal NEGATIVE [facility] Comment on above: Performed By: #### U MICRO, ERUR #### [facility] [address] [place] [address] Dr. Kris Castillo Clarity (U) CLEAR Normal CLEAR [facility] Comment on above: Performed By: #### U MICRO, ERUR #### [facility] [address] [address] [address] Kris Castillo Color (U) LT. YELLOW Normal YELLOW [facility] Comment on above: Performed By: #### U MICRO, ERUR #### [facility] [address] [address] [address] Kris DOMINGUEZ A micrscopic examination will be performed if indicated. Normal [facility] Comment on above: Performed By: #### U MICRO, ERUR #### [facility] [address] [address] [address] Kris Castillo Glucose Ql (U) Negative Normal NEGATIVE [facility] Comment on above: Performed By: #### U MICRO, ERUR #### [facility] [address] [address] [address] Kris Castillo Hemoglobin Ql (U) Negative Normal NEGATIVE [facility] Comment on above: Performed By: #### U MICRO, ERUR #### [facility] [address] [address] [address] Kris Castillo Ketones Ql (U) Negative Normal NEGATIVE [facility] Comment on above: Performed By: #### U MICRO, ERUR #### [facility] [address] [place] [address] Dr. Kris Castillo LEUKOCYTES SMALL Abnormal NEGATIVE [facility] Comment on above: Performed By: #### U MICRO, ERUR #### [facility] [address] [address] [address] Kris Castillo Nitrite Ql (U) Negative Normal NEGATIVE [facility] Comment on above: Performed By: #### U MICRO, ERUR #### [facility] [address] [place] [address] Dr. Kris Castillo pH (U) 6.0 [pH] Normal 5-9 [facility] Comment on above: Performed By: #### U MICRO, ERUR #### [facility] [address] [place] [address] Dr. Kris Castillo SPEC GRAVITY <=1.005 Abnormal 1.005-<=1.02 5 [facility] Comment on above: Performed By: #### U MICRO, ERUR #### [facility] [address] [place] [address] Dr. Kris Castillo UA PROTEIN Negative Normal NEGATIVE/ TRACE [facility] Comment on above: Performed By: #### U MICRO, ERUR #### [facility] [address] [address] [address] Kris Castillo UR MICRO IND INDICATED Normal [facility] Comment on above: Performed By: #### U MICRO, ERUR #### [facility] [address] [place] [address] Dr. Kris Castillo Urobilinogen Qn (U) 0.2 {Yaritza'U}/dL Normal 0.2 - 1. 0 [facility] Comment on above: Performed By: #### U MICRO, ERUR #### [facility] [address] [place] [address] Dr. Kris Castillo PH VENOUS BLOODon 07-25-2022 PCO2 VENOUS 49.1 mmHg Normal 40.0-52.0 [facility] Comment on above: Performed By: #### P T, PTT #### [facility] [address] [place] [address] Dr. Kris Castillo pH VENOUS 7.320 Critically low 7.330-7.430 [facility] Comment on above: Performed By: #### P T, PTT #### [facility] [address] [place] [address] Dr. Kris Castillo PROF 14(COMP METB)on 022 Albumin [Mass/Vol] 3.5 g/dL Normal 3.4-5.0 [facility] [place] [facility] Comment on above: Performed By: #### C MREP #### [facility] [address] [place] [address] Dr. Kris Castillo Albumin/Globulin [Mass ratio] 1.0 {ratio} Normal [facility] Comment on above: Performed By: #### C MREP #### [facility] [address] [place] [address] Dr. Kris Castillo ALP [Catalytic activity/Vol] 82 U/L Normal 46-116 [facility] Comment on above: Performed By: #### C MREP #### [facility] [address] [place] [address] Dr. Kris Castillo ALT [Catalytic activity/Vol] 18 U/L Normal 14-59 [facility] Comment on above: Performed By: #### C MREP #### [facility] [address] [address] [address] Kris Castillo Anion gap [Moles/Vol] 15.9 mmol/L Normal [facility] Comment on above: Performed By: #### C MREP #### [facility] [address] [address] [address] Kris Castillo AST [Catalytic activity/Vol] 14 U/L Critically low 15-37 [facility] Comment on above: Performed By: #### C MREP #### [facility] [address] [address] [address] Kris Castillo Bilirubin [Mass/Vol] 0.4 mg/dL Normal 0.2-1.0 [facility] Comment on above: Performed By: #### C MREP #### [facility] [address] [place] [address] Dr. Kris Castillo Calcium [Mass/Vol] 8.6 mg/dL Normal 8.5-10.1 [facility] [place] [facility] Comment on above: Performed By: #### C MREP #### [facility] [address] [place] [address] Dr. Kris Castillo Chloride [Moles/Vol] 102 mmol/L Normal 98-107 [facility] Comment on above: Performed By: #### C MREP #### [facility] [address] [place] [address] Dr. Kris Castillo CO2 [Moles/Vol] 22.7 mmol/L Normal 21.0-32.0 [facility] Comment on above: Performed By: #### C MREP #### [facility] [address] [place] [address] Dr. Kris Castillo Creatinine [Mass/Vol] 0.63 mg/dL Normal 0.55-1.02 [facility] Comment on above: Performed By: #### C MREP #### [facility] [address] [place] [address] Dr. Kris Castillo EGFR-AF MONTENEGRIN >60 Normal >=60 [facility] Comment on above: Performed By: #### C MREP #### [facility] [address] [place] [address] Dr. Kris Castillo EGFR-NON AF MONTENEGRIN >60 Normal >=60 [facility] Comment on above: Performed By: #### C MREP #### [facility] [address] [place] [address] Dr. Kris Castillo Globulin (S) [Mass/Vol] 3.4 g/dL Normal [facility] Comment on above: Performed By: #### C MREP #### [facility] [address] [address] [address] Kris Castillo Glucose [Mass/Vol] 92 mg/dL Normal 74-106 [facility] Comment on above: Performed By: #### C MREP #### [facility] [address] [place] [address] Dr. Kris Castillo Potassium [Moles/Vol] 3.6 mmol/L Normal 3.5-5.1 [facility] Comment on above: Performed By: #### C MREP #### [facility] [address] [place] [address] Dr. Kris Castillo Protein [Mass/Vol] 6.9 g/dL Normal 6.4-8.2 [facility] Comment on above: Performed By: #### C MREP #### [facility] [address] [place] [address] Dr. Kris Castillo Sodium [Moles/Vol] 137 mmol/L Normal 136-145 [facility] Comment on above: Performed By: #### C MREP #### [facility] [address] [place] [address] Dr. Kris Castillo Urea nitrogen [Mass/Vol] 24.0 mg/dL Critically high 7.0-18.0 [facility] Comment on above: Performed By: #### C MREP #### [facility] [address] [place] [address] Dr. Kris Castillo Urea nitrogen/Creatinine [Mass ratio] 38.1 mg/mg Normal [facility] Comment on above: Performed By: #### C MREP #### [facility] [address] [place] [address] Dr. Kris Castillo PROTIMEon 07-25-2022 INR Coag (PPP) [Relative time] 1.01 {INR} Normal [facility] Comment on above: Performed By: #### P T, PTT #### [facility] [address] [place] [address] Dr. Kris Castillo INR GUIDELINES SEE BELOW Normal [facility] Comment on above: Result Comment: ISAAC RED INR: 2.0 - 3.0 CONDITIONS NOT LISTED BELOW 2.5 - 3.5 FOR PROSTHETIC HEART VALVE REPLACEMENT 2.5 - 3.5 RECURRENT THROMBOSIS Performed By: #### P T, PTT #### [facility] [address] [place] [address] Dr. Kris Castillo PT Coag (PPP) [Time] 10.9 s Normal 9.0-11.6 [facility] Comment on above: Performed By: #### P T, PTT #### [facility] [address] [place] [address] Dr. Kris Castillo PTTon 07-25-2022 aPTT Coag (Bld) [Time] 27.6 s Normal 22.3-36.2 [facility] Comment on above: Performed By: #### P T, PTT #### [facility] [address] [place] [address] Dr. Kris Castillo SARS-CoV-2 (COVID-19) RNA NA A+probe Ql (Resp)on 07-25-2022 SARS-CoV-2 (COVID-19) RNA JAYY+probe Ql (Unsp spec) Negative [facility] Other URINE MICROSCOPIC ONLYon BACTERIA MODERATE Abnormal NONE SEEN [facility] Comment on above: Performed By: #### U MICRO, ERUR #### [facility] [address] [place] [address] Dr. Kris Castillo Bacteria identified Cx Nom (U) INDICATED Normal [facility] Comment on above: Performed By: #### U MICRO, ERUR #### [facility] [address] [place] [address] Dr. Kris Castillo CAST NONE SEEN Normal NONE SEEN [facility] Comment on above: Performed By: #### U MICRO, ERUR #### [facility] [address] [address] [address] Kris Castillo Crystals LM Nom (Urine sed) NONE SEEN Normal NONE SEEN [facility] Comment on above: Performed By: #### U MICRO, ERUR #### [facility] [address] [address] [address] Kris Castillo Epithelial cells LM Ql (Urine sed) FEW Abnormal NONE SEEN /RARE [facility] Comment on above: Performed By: #### U MICRO, ERUR #### [facility] [address] [address] [address] Kris Castillo MUCOUS NONE SEEN Normal NONE SEEN [facility] Comment on above: Performed By: #### U MICRO, ERUR #### [facility] [address] [place] [address] Dr. Kris Castillo RBC 0-2 Normal 0-2 [facility] Comment on above: Performed By: #### U MICRO, ERUR #### [facility] [address] [address] [address] Kris Castillo WBC 2-5 Abnormal NONE SEEN [facility] Comment on above: Performed By: #### U MICRO, ERUR #### [facility] [address] [address] [address] Kris Castillo XR CHEST 1 Von [...] by: BILL JONES Date: 2022-07-25 12:52 Normal [facility] CBC Auto Differentialon 05- Absolute Eos # 0.00 [facility]al th Absolute Lymph # 1.40 [facility] alth Absolute [place] # 0.30 [facility] Basophils (Bld) [#/Vol] 0.10 10*3/uL [facility] Basophils/100 WBC (Bld) 1 % 0 - 2 % [facility] Eosinophils/100 WBC (Bld) 0 % 0 - 4 % [facility] Hematocrit (Bld) [Volume fraction] 35.2 % Low 36 - 46 % [facility] Hemoglobin.gastrointes tinal spec 1 Ql (Stl) 11.2 g/dL Low 12.0 - 16.0 g/dL [facility] Interpretation and review of laboratory results Abnormal [facility] Lymphocytes/100 WBC (Bld) 14 % Low 24 - 44 % [facility] MCH (RBC) [Entitic mass] 27.7 pg 26 - 34 pg [facility] MCHC (RBC) [Mass/Vol] 31.9 g/dL 31 - 37 g/dL M [facility] MCV (RBC) [Entitic vol] 86.8 fL 80 - 100 fL [facility] Monocytes/100 WBC (Bld) 3 % 1 - 7 % [facility] Platelet distribution width (Bld) [Ratio] 16.5 % High 11.5 - 14.9 % [facility] Platelet mean volume (Bld) [Entitic vol] 6.8 fL 6.0 - 12.0 fL [facility] Platelets (Bld) [#/Vol] 290 10*3/uL [facility] RBC (Bld) [#/Vol] 4.06 10*6/uL 4.0 - 5.2 m/uL [facility] Segmented neutrophils/100 WBC (Bld) 82 % High 36 - 66 % [facility] Segs Absolute 8.50 [facility] h WBC (Bld) [#/Vol] 10.3 10*3/uL [facility] CBC with Auto Differentialon 04-07-2022 Absolute Eos # 0.[address] [facility] th Absolute Lymph # 1.40 [facility] alth Absolute [place] # 0.30 [facility] lth Basophils (Bld) [#/Vol] 0.10 10*3/uL [facility] Basophils/100 WBC (Bld) 1 % 0 - 2 % [facility] Eosinophils/100 WBC (Bld) 0 % 0 - 4 % [facility] Hematocrit (Bld) [Volume fraction] 35.2 % Low 36 - 46 % [facility] Hemoglobin.gastrointes tinal spec 1 Ql (Stl) 11.2 g/dL Low 12.0 - 16.0 g/dL [facility] Interpretation and review of laboratory results Abnormal [facility] Lymphocytes/100 WBC (Bld) 14 % Low 24 - 44 % [facility] MCH (RBC) [Entitic mass] 27.7 pg 26 - 34 pg [facility] MCHC (RBC) [Mass/Vol] 31.9 g/dL 31 - 37 g/dL [facility] MCV (RBC) [Entitic vol] 86.8 fL 80 - 100 fL [facility] Monocytes/100 WBC (Bld) 3 % 1 - 7 % [facility] Platelet distribution width (Bld) [Ratio] 16.5 % High 11.5 - 14.9 % [facility] Platelet mean volume (Bld) [Entitic vol] 6.8 fL 6.0 - 12.0 fL [facility] Platelets (Bld) [#/Vol] 290 10*3/uL [facility] RBC (Bld) [#/Vol] 4.06 10*6/uL 4.0 - 5.2 m/uL [facility] Segmented neutrophils/100 WBC (Bld) 82 % High 36 - 66 % [facility] Segs Absolute [facility].[address] [facility] WBC (Bld) [#/Vol] 10.3 10*3/uL [facility] Iron And TIBCon 04-07-2022 Interpretation and review of laboratory results Abnormal [facility] Iron [Mass/Vol] 34 ug/dL Low 37 - 145 ug/dL [facility] Iron Saturation 8 % Low 20 - 55 % [facility] 413 ug/dL 250 - 450 ug/dL [facility] UIBC 379 ug/dL High 112 - 347 ug/dL [facility] COVID Quick Testingon 2021 Result Negative [facility] Other Quick Fluon 04-06-2022 FLUAV Ab CF (S) [Titer] Negative [facility] Other FLUBV Ab CF (S) [Titer] Negative [facility] Other Laboratory - Microbiology an d Antimicrobial susceptibilityon 09-17-2021 SARS-CoV-2 (COVID-19) RNA JAYY+probe Ql (Unsp spec) -[address] Work Phone: No Panel Informationon 09-17 18\S\18 Normal 9-23 [facility] [address] [place] Work Phone: 27.4\S\27.4 Normal 25.1-36.5 [facility] [address] [place] Work Phone: Comment on above: PERFORMED BY:[address] [address] [address] [place], [place] [id number] MEDICAL DIRECTORKIA MORE M.D. 1.1\S\1.1 Normal [facility] [address] [place] Work Phone: Comment on above: [...] valves: 3 - 4.5 12.5\S\12.5 Normal 9.0-12.9 [facility] [address] [place] Work Phone: 24.9\S\24.9 Normal 22.0-30.0 [facility] [address] [place] Work Phone: 106\S\106 Normal 95-114 [facility] [address] [place] Work Phone: 3.8\S\3.8 Normal 3.5-5.1 [facility] [address] [place] Work Phone: 140\S\140 Normal 136-146 [facility] [address] [place] Work Phone: [facility] [address] [place] Work Phone: > 60 Normal [facility] [address] [place] Work Phone: Comment on above: GFR estimated refere nce range: According to KDOQI guidelines, <60 ml/min/1.73m2 is sufficient to diagnose a patient with chronic kidney disease.PERFORMED BY:[facility] [place], [place] [id number] MEDICAL DIRECTORKIA MORE M.D. 0.57\S\0.57 Normal 0.44-1.03 -[facility] [address] [place] Work Phone: 46.1\S\46.1 Normal . [facility] [address] [place] Work Phone: 7.2\S\7.2 Normal . [facility] [address] [place] Work Phone: 267\S\267 Normal 150-450 [facility] [address] [place] Work Phone: 20.2\S\20.2 above high threshold 11.9-15.3 [facility] [address] [place] Work Phone: 30.4\S\30.4 below low threshold 32.0-35.0 [facility] [address] [place] Work Phone: 20.9\S\20.9 below low threshold 24.7-34.3 [facility] [address] [place] Work Phone: 2.1\S\2.1 Normal 1.8-7.7 [facility] [address] [place] Work Phone: 0.0\S\0.0 Normal 0-0.5 [facility] [address] [place] Work Phone: 1.9\S\1.9 Normal 1.00-4.8 [facility] [address] [place] Work Phone: 4.5\S\4.5 Normal . [facility] [address] [place] Work Phone: 40.3\S\40.3 Normal . [facility] [address] [place] Work Phone: Moderate Normal [facility] [address] [place] Work Phone: 0.1\S\0.1 Normal 0.0-0.2 [facility] [address] [place] Work Phone: 0.2\S\0.2 Normal 0.0-0.45 -[facility] [address] [place] Work Phone: 0.3\S\0.3 Normal 0.0-0.8 [facility] [address] [place] Work Phone: Normal Normal Normal [facility] [address] [place] Work Phone: Comment on above: PERFORMED BY:[address] [address] [address] [place], [place] [id number] MEDICAL DIRECTORKIA MORE M.D. Slight Normal [facility] [address] [place] Work Phone: 68.8\S\68.8 below low threshold 80-100 [facility] [address] [place] Work Phone: 26.3\S\26.3 below low threshold 34.0-46.4 [facility] [address] [place] Work Phone: 8.0\S\8.0 below low threshold 11.8-15.4 [facility] [address] [place] Work Phone: 3.82\S\3.82 Normal 3.60-5.00 [facility] [address] [place] Work Phone: 4.6\S\4.6 Normal 3.8-11.6 [facility] [address] [place] Work Phone: [facility] [address] [place] Work Phone: Laboratory - Chemistry and C hemistry - challengeon 09-09-2021 Cholesterol [Mass/Vol] 164\S\164 Normal 140-[address] Work Phone: Comment on above: Chol less than 200 m g/dl low risk Chol 201-239 mg/dl borderline risk Chol 240 mg/dl and greater high risk Cholesterol in LDL [Mass/Vol] 90\S\90 Normal 0-[address] Work Phone: Comment on above: LDL ATP III CLASSIFI CATION LDL less than 100 mg/dL Optimal LDL 100-129 mg/dL Near or above optimal LDL 130-159 mg/dL Borderline high LDL 160-189 mg/dL High LDL greater than 189 mg/dL Very high Laboratory - Microbiology an d Antimicrobial susceptibilityon 09-09-2021 SARS-CoV-2 (COVID-19) RNA JAYY+probe Ql (Unsp spec) [address] Work Phone: No Panel Informationon 09-09 29.7\S\29.7 Normal 25.1-36.[address] Work Phone: Comment on above: PERFORMED BY:[address] [address] [address] [place], [place] [id number] MEDICAL DIRECTORKIA MORE M.D. 1.2\S\1.[address] Work Phone: Comment on above: INR [...] - 4.5 13.3\S\13.3 above high threshold 9.0-12.[address] Work Phone: 24.8\S\24.8 Normal 22.0-30.0 -[facility] [address] [place] Work Phone: 106\S\106 Normal 95-114 -[facility] [address] [place] Work Phone: 4.0\S\4.0 Normal 3.5-5.1 -[facility] [address] [place] Work Phone: 140\S\140 Normal 136-146 -[facility] [address] [place] Work Phone: Slight Normal -[facility] [address] [place] Work Phone: Comment on above: PERFORMED BY:[facility] [place] [id number] MEDICAL DIRECTORKIA MORE M.D. Normal Normal Normal -[facility] [address] [place] Work Phone: Moderate Normal -[facility] [address] [place] Work Phone: 0.1\S\0.1 Normal 0.0-0.2 -[facility] [address] [place] Work Phone: 0.3\S\0.3 Normal 0.0-0.45 -[facility] [address] [place] Work Phone: 0.4\S\0.4 Normal 0.0-0.8 -[facility] [address] [place] Work Phone: 2.1\S\2.1 Normal 1.00-4.8 -[facility] [address] [place] Work Phone: 2.6\S\2.6 Normal 1.8-7.7 -[facility] [address] [place] Work Phone: Comment on above: PERFORMED BY:[facility] [place], [place] [id number] MEDICAL DIRECTORKIA MORE M.D. 0.0\S\0.0 Normal 0-0.5 -[facility] [address] [place] Work Phone: 1.1\S\1.1 Normal . -[facility] [address] [place] Work Phone: 5.3\S\5.3 Normal . -[facility] [place] Work Phone: 7.2\S\7.2 Normal . -[facility] [address] [place] Work Phone: 39.2\S\39.2 Normal . -[facility] [address] [place] Work Phone: 47.2\S\47.2 Normal . -[facility] [address] [place] Work Phone: 6.8\S\6.8 Normal 6.3-10.7 -[facility] [address] [place] Work Phone: 332\S\332 Normal 150-450 -[facility] [address] [place] Work Phone: 20.1\S\20.1 above high threshold 11.9-15.3 -[facility] [place] Work Phone: 29.8\S\29.8 below low threshold 32.0-35.0 -[facility] [address] [place] Work Phone: 20.7\S\20.7 below low threshold 24.7-34.3 -[facility] [address] [place] Work Phone: 69.2\S\69.2 below low threshold 80-100 -[facility] [address] [place] Work Phone: 27.8\S\27.8 below low threshold 34.0-46.4 -[facility] [place] Work Phone: 8.3\S\8.3 below low threshold 11.8-15.4 [facility] [place] Work Phone: 4.01\S\4.01 Normal 3.60-5.00 [facility] [place] Work Phone: 5.5\S\5.5 Normal 3.8-11.6 [facility] [employer] [address] [place] Work Phone: 11\S\11 Normal [facility] [address] [employer] Work Phone: 57\S\57 Normal 35-149 [facility] [employer] [facility] [employer] Work Phone: Comment on above: TRIG ATP III CLASSIF ICATION TRIG less than 150 mg/dL Normal TRIG 150-199 mg/dL Borderline high TRIG 200-500 mg/dL High TRIG greater than 500 mg/dL Very high Standard traceable to the Center for Disease Conrtrol and Prevention (CDC) test method. 63\S\63 Normal 35-85 [facility] [employer] Work Phone: Comment on above: HDL CHOL ATP-III CLA SSIFICATION Cardiovascular Risk HDL > or equal to 60 mg/dL LOW HDL < 40 mg/dL HIGH > 60 Normal [facility] [employer] Work Phone: Comment on above: GFR estimated refere nce range: According to KDOQI guidelines, <60 ml/min/1.73m2 is sufficient to diagnose a patient with chronic kidney disease. 0.56\S\0.56 Normal 0.44-1.03 [facility] [employer] Work Phone: 19\S\19 Normal 9-23 [facility] [address] [address] [place] Work Phone: [facility] [employer] [address] [place] Work Phone: [facility] [employer] [address] [employer] Work Phone: Office Visit (Cardiology)on 09-02-2021 Follow-up [...] Hospital Evaluation and Treatment Evaluate AND Treat [facility] diagnostic staff to initiate [facility] preop orders for left cardiac [...] a history of prior heart catheterization in [place] remotely that revealed normal coronary arteries. I [...] 2 SPRAYS IN EACH NOSTRIL ONCE DAILY [id number] AT NIGHT Pantoprazole Sodium 40 MG Oral [...] illicit tres (more content not included)... Normal [facility] Tobacco Screening.on 021 Fall risk assessment a) No falls within the last year [employer] Work Phone: Tobacco use status CP b) No [facility]astings [employer] DO Work Phone: POC Glucose Fingerstickon Glucose [Mass/Vol] 101 mg/dL 65 - 105 mg/dL [employer] Phone: Glucose [Mass/Vol] 121 mg/dL High 65 - 105 mg/dL [employer] Phone: Interpretation and review of laboratory results Abnormal [employer] Phone: Folateon 03-03-2021 Folate 6.6 ng/mL >4.8 [employer] Phone: Iron and TIBCon 03-03-2021 Interpretation and review of laboratory results Abnormal [employer] Phone: Iron [Mass/Vol] 15 ug/dL Low 37 - 145 ug/dL [employer] Phone: Iron Saturation 4 % Low 20 - 55 % [facility] Work Phone: TIBC 390 ug/dL 250 - 450 ug/dL [employer] Phone: UIBC 375 ug/dL High 112 - 347 ug/dL [employer] Phone: Reticulocyteson 03-03-2021 Absolute Retic # 0.049 [employer] Work Phone: Immature Retic Fract NOT REPORTED % Me [facility] [employer] Phone: Retic % 1.3 % 0.5 - 2.0 % [employer] Phone: Retic Hemoglobin NOT REPORTED 28.2 - 35.7 [facility] Phone: Vitamin B12on 03-03-2021 Cobalamin (Vitamin B12) [Mass/Vol] pg/mL High 232 - 1245 pg/mL [employer] Phone: Interpretation and review of laboratory results Abnormal [employer] Phone: Vital Signs Date Time Vital Sign Value Performing Clinician Facility 12-28-2023 12:00-0500 Body height 149.86 cm Tayla Torres Other [facility] Other 12-28-2023 12:00-0500 Body mass index (BMI) [Ratio] 35.95 kg/m2 Tayla Torres Other [facility] Other 12-28-2023 12:00-0500 Body temperature 98.1 [degF] Tayla Torres Other [facility] Other 12-28-2023 12:00-0500 Body weight 80.74 kg Tayla Torres Other [facility] Other 12-28-2023 12:00-0500 Respiratory rate 18 /min Tayla Torres Other [facility] Other 12-28-2023 12:00-0500 SaO2% (BldA) [Mass fraction] 97 % Tayla Torres Other [facility] Other 05-14-2023 12:05-0400 Body height 152.4 cm Concepcion Moore DO Work Phone: [facility] 05-14-2023 12:05-0400 Body weight 74.84 kg Concepcion Moore DO Work Phone: [facility] 05-08-2023 11:30-0400 Body height 149.86 cm Courtney Perez Other [facility] Other 05-08-2023 11:30-0400 Body mass index (BMI) [Ratio] 33.24 kg/m2 Courtney Perez Other [facility] Other 05-08-2023 11:30-0400 Body temperature 97.7 [degF] Courtney Perez Other [facility] Other 05-08-2023 11:30-0400 Body weight 74.66 kg Courtney Perez Other [facility] Other 05-08-2023 11:30-0400 Diastolic blood pressure 66 mm[Hg] Courtney Perez Other [facility] Other 05-08-2023 11:30-0400 Respiratory rate 18 /min Courtney Perez Other [facility] Other 05-08-2023 11:30-0400 SaO2% (BldA) [Mass fraction] 98 % Courtney Perez Other [facility] Other 05-08-2023 11:30-0400 Systolic blood pressure 154 mm[Hg] Courtney Perez Other [facility] Other 12-08-2022 16:06-0500 Body height 149.9 cm Stcz 3 [facility] 12-08-2022 16:06-0500 Body mass index (BMI) [Ratio] 33.73 kg/m2 Stcz 3 [facility] 12-08-2022 16:06-0500 Body weight 75.75 kg Stcz 3 [facility] 07-25-2022 10:25-0400 Body height 149.86 cm Adilia Ramirezmond Other [facility] Other 07-25-2022 10:25-0400 Body mass index (BMI) [Ratio] 35.14 kg/m2 Adilia Cielo Other [facility] Other 07-25-2022 10:25-0400 Body temperature 97.8 [degF] Adilia Ramirezmond Other [facility] Other 07-25-2022 10:25-0400 Body weight 78.93 kg Adilia Buck Other [facility] Other 07-25-2022 10:25-0400 Respiratory rate 18 /min Adilia Buck Other [facility] Other 07-25-2022 10:25-0400 SaO2% (BldA) [Mass fraction] 98 % Adilia Ramirezmond Other [facility] Other 04-06-2022 12:35-0400 Body height 149.86 cm Ava Salvador Other [facility] Other 04-06-2022 12:35-0400 Body mass index (BMI) [Ratio] 35.95 kg/m2 Ava Salvador Other [facility] Other 04-06-2022 12:35-0400 Body temperature 98.8 [degF] Ava Salvador Other [facility] Other 04-06-2022 12:35-0400 Body weight 80.74 kg Ava Salvador Other [facility] Other 04-06-2022 12:35-0400 Respiratory rate 18 /min Ava Salvador Other [facility] Other 04-06-2022 12:35-0400 SaO2% (BldA) [Mass fraction] 97 % Ava Salvador Other [facility] Other 09-09-2021 00:00-0400 90 1 Atul Frazier DO Work Phone: [facility] [address] [place] Work Phone: Comment on above: FSLDL 09-02-2021 10:49-0400 Heart rate 62 /min Atul Frazier DO Work Phone: [facility] [address] DO Work Phone: 09-02-2021 10:46-0400 Body height 149.86 cm Atul Freddie DO Work Phone: [facility] [address] DO Work Phone: 09-02-2021 10:46-0400 Body mass index (BMI) [Ratio] 34.54 kg/m2 Atul Frazier DO Work Phone: [facility] [address] DO Work Phone: 09-02-2021 10:46-0400 Body surface area Derived from formula 1.73 m2 Atul Frazier DO Work Phone: [facility] [address] DO Work Phone: 09-02-2021 10:46-0400 Body weight 77.57 kg Atul Frazier DO Work Phone: [facility] [address] DO Work Phone: 09-02-2021 10:46-0400 Diastolic blood pressure 70 mm[Hg] Atul Frazier DO Work Phone: [facility] [address] DO Work Phone: 09-02-2021 10:46-0400 Systolic blood pressure 138 mm[Hg] Atul Frazier DO Work Phone: [facility] [address] DO Work Phone: 03-07-2021 09:20-0400 BP Diastolic 53 mm[Hg] Bobbi CC videor [facility] Work Phone: 03-07-2021 09:20-0400 BP Systolic 136 mm[Hg] Bobbi fruuxlur [facility] Work Phone: 03-07-2021 09:20-0400 Pulse (Heart Rate) 81 /min Bobbi fruuxeulalior [facility] Work Phone: 03-07-2021 09:20-0400 Pulse Oximetry 97 % Bobbi fruuxlur [facility] Work Phone: 03-07-2021 09:20-0400 Respiratory Rate 21 /min Bobbi fruuxlur [facility] Work Phone: 03-07-2021 09:10-0400 Body Temperature 97.7 [degF] Bobbi fruuxlur [facility] Work Phone: 03-07-2021 06:58-0400 BMI (Body Mass Index) 37.2 kg/m2 Bobbi fruuxlur [facility] Work Phone: 03-07-2021 06:58-0400 Body weight 80.74 kg Bobbi CC videor [facility] Work Phone: 03-07-2021 06:58-0400 Height 147.3 cm Bobbi Nunez [place] Work Phone: 02-26-2021 15:57-0400 BMI (Body Mass Index) 37.2 kg/m2 St [facility] [employer] Phone: 02-26-2021 15:57-0400 Body weight 80.74 kg [facility] 4 [place] Work Phone: 02-26-2021 15:57-0400 Height 147.3 cm Stcz 4 [employer] Phone: Encounters Encounter Date Encounter Type Care Provider Facility Start: 09-28-2024 End: 09-28-2024 Telephone encounter Ava Damon OD Work Phone: Ophthalmology Comment on above: Medication Problem Start: 08-29-2024 End: 08-29-2024 ambulatory SMITH SHEIKH Facility:[facility] Start: 08-29-2024 End: 08-29-2024 Patient encounter procedure Ava Damon OD Work Phone: Ophthalmology Comment on above: Other chronic allerg ic conjunctivitis of both eyes (Primary Dx); Keratoconjunctivitis sicca of both eyes not specified as Sjogren's; Bilateral cornea scars; Pseudophakia of both eyes Start: 07-26-2024 End: 07-26-2024 ambulatory [facility] Start: 06-12-2024 End: 06-14-2024 Emergency department patient visit MARJORIE SYLVESTER [facility] Start: 06-12-2024 End: 06-13-[address] [facility] Start: 03-22-2024 End: 03-23-2024 ambulatory TRINIDAD LICONA [facility] Start: 03-13-2024 End: 03-13-2024 ambulatory AVA DAMON Facility:[facility] Start: 03-13-2024 End: 03-13-2024 Patient encounter procedure Ava Damon OD Work Phone: Ophthalmology Comment on above: Diabetes mellitus ty pe 2 without retinopathy (HCC) (Primary Dx); Bilateral cornea scars; Keratoconjunctivitis sicca of both eyes not specified as Sjogren's; Other chronic allergic conjunctivitis of both eyes; Pseudophakia of both eyes Start: 02-23-2024 End: 02-23-2024 Subsequent hospital visit by physician Trinidad Licona MD Work Phone: [employer] Comment on above: Canceled (Patient) Start: 02-21-2024 End: 03-22-2024 ambulatory [facility] Start: 02-02-2024 End: 02-03-2024 ambulatory [facility] Start: 02-02-2024 End: 02-02-2024 Subsequent hospital visit by physician Trinidad Licona MD Work Phone: [employer] Comment on above: Lumbosacral spondylo sis without myelopathy (Primary Dx) Start: 01-21-2024 End: 02-21-2024 ambulatory [facility] Start: 12-28-2023 End: 12-28-2023 ambulatory Tayla Torres Other [facility] Other Start: 12-28-2023 Office outpatient vi sit 25 minutes Tayla Torres [facility] Start: 12-23-2023 End: 01-21-2024 ambulatory [facility] Start: 11-30-2023 End: 12-03-2023 ambulatory [facility] Start: 11-29-2023 End: 12-23-2023 [facility] Start: 11-08-2023 End: 11-09-2023 ambulatory [facility] Start: 10-26-2023 End: 11-22-2023 ambulatory [facility] Start: 10-21-2023 End: 10-22-2023 ambulatory [facility] Start: 05-14-2023 ambulatory SMITH SHEIKH Facility:[facility] Start: 05-14-2023 Telephone encounter Concepcion Moore DO Work Phone: [facility] Comment on above: Medication Question Start: 05-14-2023 End: 05-14-2023 Patient encounter procedure Concepcion Moore DO Work Phone: [facility] Comment on above: Spinal stenosis of l umbar region, unspecified whether neurogenic claudication present (Primary Dx); Degenerative arthropathy of spinal facet joint; Myalgia; Postural imbalance Start: 05-11-2023 Telephone encounter Concepcion Moore DO Work Phone: [facility] Comment on above: Appointment Cancelle d Start: 05-08-2023 End: 05-08-2023 ambulatory Courtney Perez Other [facility] Other Start: 05-08-2023 Office outpatient vi sit 15 minutes Courtney Perez [facility] Start: 04-20-2023 End: 04-21-2023 [...] Start: 12-08-2022 End: 12-13-2022 ambulatory BOBBI NUNEZ [facility] Start: 12-08-2022 End: 12-12-2022 Subsequent hospital visit [...] 07-25-2022 End: 07-25-2022 ambulatory CORBY STORM . [facility] Other Start: 07-01-2022 End: 07-02-[address] RONY ARCINIEGA . Facility: Start: 04-15-2022 Telephone encounter Ava Damon OD Work Phone: Ophthalmology Comment on above: Patient Question Start: 04-07-2022 End: 04-07-2022 Subsequent hospital visit by physician Smith Sheikh MD Work Phone: [facility] Comment on above: Other iron deficienc y anemia Start: 04-06-2022 End: 04-06-2022 ambulatory Ava Salvador Other [facility] Other Start: 04-06-2022 Office outpatient vi sit [...] 12-01-2021 End: 12-01-2021 ambulatory W Shady Frazier Facility:[facility] Start: 09-19-2021 Chart Update Atul veloz DO Work Phone: [facility] [address] [place] Work Phone: Start: 09-19-2021 [facility], Provider: Atul Frazier, Status: Pen, Time: 10:00 AM Atul Frazier DO Work Phone: -[facility] [place] Work Phone: Start: 09-18-2021 AUDIT Atul veloz DO Work Phone: -[facility] [place] Work Phone: Start: 09-11-2021 [facility], Provider: Atul Frazier, Status: Pen, Time: 12:00 PM Atul Frazier DO Work Phone: -[facility] [place] Work Phone: Start: 09-09-2021 Chart Update Atul veloz DO Work Phone: -[facility] [place] Work Phone: Start: 09-02-2021 Office consultation new/estab patient 80 min Atul Frazier DO Work Phone: [facility] [place] Work Phone: Start: 09-02-2021 Patient encounter procedure Atul Frazier DO Work Phone: -[facility] [place] Work Phone: Start: 03-07-2021 End: [...] 03-07-2026 Screening for malignant neoplasm of colon [facility] Start: 03-14-2025 End: 03-14-2025 Patient encounter procedure 03/14/2025 10:30 AM EDT Office Visit [facility] [address] [place] [address] Ava Damon, OD [address] [place] [address] 1 year diabetic eye exam Ophthalmology Comment on above: 1 year diabetic eye exam Start: 03-13-2025 Glaucoma screening Dilated Retinal Exam [facility] Start: 12-13-2024 Depression Screen Depression Screen [facility] Start: 07-23-2024 Covid-19 Vaccine ( season) Covid-19 Vaccine ( season) [facility] Start: 07-23-2024 Influenza vaccination [facility] Start: 07-06-2024 Hemoglobin A1c measurement HbA1C [facility] Start: 06-22-2024 Influenza vaccination Flu vaccine (Season Ended) [facility] Start: 04-10-2024 End: 04-10-2024 Patient encounter procedure 04/10/2024 2:30 PM EDT Office Visit [facility] [address] [place] [address] [phone] Smith Sheikh MD [address] [place] [address] 3 month check [facility] Comment on above: 3 month check Start: 04-07-2024 Shingles vaccine (2 of 2) Shingles vaccine (2 of 2) [employer] Comment on above: Postponed from 09/17/2021 (Unavailable) Start: 04-03-2024 End: 04-03-2024 Patient encounter procedure 04/03/2024 11:15 AM EDT Office Visit [facility] [address] [place] [address] Smith Sheikh MD [address] [place] [address] 3 month f/u [facility] Comment on above: 3 month f/u Start: 03-29-2024 Pneumococcal 65+ years Vaccine (2 - PPSV23 or PCV20) Pneumococcal 65+ years Vaccine (2 - PPSV23 or PCV20) [employer] Comment on above: Postponed from 09/17/2021 (Unavailable) Start: 03-29-2024 Pneumococcal 65+ years Vaccine (2 of 2 - PPSV23 or PCV20) Pneumococcal 65+ years Vaccine (2 of 2 - PPSV23 or PCV20) [employer] Comment on above: Postponed from 09/17/2021 (Unavailable) Start: 03-10-2024 Hepatitis C antibody, confirmatory test DILATED RETINAL EXAM [facility] Start: 12-02-2023 GFR test (Diabetes, CKD 3-4, OR last GFR 15-59) GFR test (Diabetes, CKD 3-4, OR last GFR 15-59) [employer] Start: 11-22-2023 Advance Directive Discussion Advance Directive Discussion [facility] Start: 11-22-2023 Behavioral Health Screening Behavioral Health Screening [facility] Start: 10-21-2023 Depression Screen Depression Screen [employer] Start: 10-21-2023 Hemoglobin A1c measurement A1C test (Diabetic or Prediabetic) [employer] Start: 08-29-2023 Lipid panel Lipids [employer] Start: 07-23-2023 Covid-19 Vaccine ( season) Covid-19 Vaccine () [facility] Start: 07-23-2023 COVID-19 Vaccine ( season) COVID-19 Vaccine ( season) [facility] Start: 06-22-2023 Influenza vaccination Flu vaccine (#1) [facility] Start: 04-07-2023 Screening for malignant neoplasm of breast Breast cancer screen [facility] Start: 02-19-2023 Hepatitis C antibody, confirmatory test DILATED RETINAL EXAM [facility] Start: 01-20-2023 End: 01-20-2023 Patient encounter procedure 01/20/2023 Office Visit Family Medicine Smith Sheikh MD [address] [place] [id number] Smith Sheikh MD [facility] Start: 2023 RSV Vaccine (1 - 1-dose 75+ series) RSV Vaccine (1 - 1-dose 75+ series) [facility] Start: 12-22-2022 End: 12-22-2022 Admission to same day surgery center 12/22/2022 Surgery Endoscopy Bobbi Nunez MD [address] [place] [address] EGD BIOPSY [facility] Comment on above: EGD BIOPSY Start: 12-22-2022 End: 12-22-2022 Egd transoral biopsy single/multiple EGD BIOPSY Gastroesophageal reflux disease without esophagitis 12/22/2022 8:00 AM EST [facility] Start: 12-22-2022 Subsequent hospital visit by physician 12/22/2022 Hospital Encounter Endoscopy Bobbi Nunez MD [address] [place] [address] [facility] Start: 12-08-2022 End: 12-08-2022 Patient encounter procedure 12/08/2022 Appointment Pre-Admission Testing [facility] Pre-Admit Testing Start: 11-22-2022 ADVANCE DIRECTIVE DISCUSSION ADVANCE DIRECTIVE DISCUSSION [facility] Start: 11-22-2022 DEPRESSION ASSESSMENT DEPRESSION ASSESSMENT [facility] Start: 11-03-2022 Depression Screen Depression Screen [facility] Start: 08-30-2022 Hemoglobin A1c measurement A1C test (Diabetic or Prediabetic) [facility] Start: 07-23-2022 [facility] Start: 07-23-2022 Pneumococcal 65+ years Vaccine (2 - PPSV23 if available, else PCV20) Pneumococcal 65+ years Vaccine (2 - PPSV23 if available, else PCV20) [employer] [employer] Start: 07-23-2022 Pneumococcal 65+ years Vaccine (2 - PPSV23 or PCV20) Pneumococcal 65+ years Vaccine (2 - PPSV23 or PCV20) [facility] Start: 05-13-2022 End: 05-13-2022 Patient encounter procedure 05/13/2022 Office Visit Gastroenterology Bobbi Nunez MD [address] [place] [address] [facility] Start: 04-22-2022 End: 04-22-2022 Patient encounter procedure 04/22/2022 Office Visit Family Medicine Smith Sheikh MD [address] [place] [phone] Smith Sheikh MD [facility] Start: 04-07-2022 Mammography MAMMOGRAM [facility] Start: 02-14-2022 Screening for malignant neoplasm of colon FIT/FOBT: Average risk [facility] Start: 02-05-2022 Hepatitis C screening Hepatitis C screen [employer] Phone: Comment on above: Postponed from 1948 (Patient Refus ed) Start: 01-24-2022 COVID-19 VACCINE (4 - Booster for Moderna series) COVID-19 VACCINE (4 - Booster for Moderna series) [facility] Start: 01-22-2022 Creatinine measurement Creatinine monitoring [employer] Phone: Start: 01-22-2022 HbA1c (Bld) [Mass fraction] A1C test (Diabetic or Prediabetic) [employer] Phone: Start: 01-22-2022 Lipid panel [facility] Start: 01-22-2022 Potassium monitoring Potassium monitoring [facility] [employer] Phone: Start: 01-22-2022 TSH Qn TSH testing [facility] [employer] Phone: Start: 11-22-2021 ADVANCE DIRECTIVE DISCUSSION ADVANCE DIRECTIVE DISCUSSION [facility] Start: 11-21-2021 COVID-19 VACCINE (4 - Booster for Moderna series) COVID-19 VACCINE (4 - Booster for Moderna series) [facility] Start: 11-21-2021 COVID-19 VACCINE (5 - Booster for Moderna series) COVID-19 VACCINE (5 - Booster for Moderna series) [facility] Start: 11-21-2021 COVID-19 Vaccine (5 - Booster) COVID-19 Vaccine (5 - Booster) [facility] Start: 10-30-2021 FUV, Provider: Atul Frazier, Status: Pen, Time: 10:10 AM [facility], Provider: Atul Frazier, Status: Pen, Time: 10:10 AM [employer] DO Work Phone: Start: 09-17-2021 Pneumococcal Vaccine: 65+ (2 of 2 - PPSV23 or PCV20) Pneumococcal Vaccine: 65+ (2 of 2 - PPSV23 or PCV20) [facility] Start: 09-17-2021 Shingles vaccine (2 of 2) Shingles vaccine (2 of 2) [facility] Start: 09-17-2021 Shingrix Vaccine (2 of 2) Shingrix Vaccine (2 of 2) [facility] Start: 09-11-2021 [facility], Provider: Atul Frazier, Status: Pen, Time: 12:00 PM [facility], Provider: Atul Frazier, Status: Pen, Time: 12:00 PM [employer] 250 DO Work Phone: Start: 08-28-2021 HbA1c (Bld) [Mass fraction] A1C test (Diabetic or Prediabetic) [facility] [employer] Phone: Start: 08-23-2021 DTaP/Tdap/Td vaccine (1 - Tdap) DTaP/Tdap/Td vaccine (1 - Tdap) [employer] Phone: Comment on above: Postponed from 1967 (Not Indicated ) Start: 08-23-2021 Pneumococcal 65+ years Vaccine (1 of 1 - PPSV23) Pneumococcal 65+ years Vaccine (1 of 1 - PPSV23) [employer] Phone: Comment on above: Postponed from 2013 (Not Indicated ) Start: 08-23-2021 Shingles Vaccine (1 of 2) Shingles Vaccine (1 of 2) [employer] Phone: Comment on above: Postponed from 1998 (Not Indicated ) Start: 07-23-2021 Influenza vaccination INFLUENZA (#1) [facility] Start: 03-31-2021 End: 03-31-2021 Office Visit 03/31/2021 Office Visit Gastroenterology Bobbi Nunez MD [address] [place] [address] [address] [phone] [facility] Start: 03-17-2021 End: 03-17-2021 Office Visit 03/17/2021 Office Visit Family Medicine Smith Sheikh MD [address] [place] [address] [phone] Smith Sheikh MD [facility] Start: 03-07-2021 End: 03-07-2021 Hospital Encounter [facility] Comment on above: EGD Start: 03-03-2021 End: 02-28-2022 COVID-19 [employer] Phone: Comment on above: Expected: 03/03/2021, Expires: 2 Once for 1 Occurrenc es starting 03/03/2021 until 03/03/2021 Start: 03-03-2021 Hospital Encounter 03/03/2021 Hospital Encounter Lab Pre-op testing (Primary Dx) [facility] Covid Screening Comment on above: Pre-op testing (Primary Dx) Start: 02-26-2021 Hemoglobin A1c measurement HbA1C [facility] Start: 02-26-2021 Hemoglobin A1c/Hemoglobin.total in Blood HBA1C [facility] Start: 12-25-2018 Screening for malignant neoplasm of breast Breast cancer screen [employer] Phone: Start: 08-21-2017 Screening for malignant neoplasm of colon Colon Cancer Screen FIT/FOBT [employer] Phone: Start: 07-31-2017 Creatinine measurement Creatinine monitoring [employer] Phone: Start: 07-31-2017 Lipid panel Lipid screen [employer] Phone: Start: 07-31-2017 Potassium monitoring Potassium monitoring [employer] Phone: Start: 07-31-2017 TSH Qn TSH testing [employer] Phone: Start: 11-19-2015 Diabetic foot examination [facility] Start: 11-19-2015 Diabetic retinal exam Diabetic retinal exam [facility] Start: 11-19-2015 Glaucoma screening Diabetic retinal exam [employer] Start: 2013 BONE DENSITY BONE DENSITY [facility] Start: 2013 PNEUMOCOCCAL: 65+ (1 - PCV) PNEUMOCOCCAL: 65+ (1 - PCV) [facility] Start: 2013 PNEUMOVAX AGE 65 AND OVER WITH 5YR LOOKBACK (#1) PNEUMOVAX AGE 65 AND OVER WITH 5YR LOOKBACK (#1) [facility] Start: 2013 Screening for osteoporosis Bone Density Screening [facility] Start: 2008 Respiratory Syncytial Virus (RSV) or age 60 yrs+ (1 - 1-dose 60+ series) Respiratory Syncytial Virus (RSV) or age 60 yrs+ (1 - 1-dose 60+ series) [facility] Start: 2008 RSV Vaccine (1 - 1-dose 60+ series) RSV Vaccine (1 - 1-dose 60+ series) [facility] Start: 1998 SHINGRIX VACCINE (1 of 2) SHINGRIX VACCINE (1 of 2) [facility] Start: 1993 COLOGUARD (FIT-DNA) COLOGUARD (FIT-DNA) [facility] Start: 1993 Colonoscopy COLONOSCOPY [facility] Start: 1993 COLORECTAL CANCER SCREENING COLORECTAL CANCER SCREENING [facility] Start: [address] COLONOGRAPHY [facility] Start: 1993 FECAL OCCULT BLOOD FECAL OCCULT BLOOD [facility] Start: 1993 Screening for malignant neoplasm of colon [facility] Start: 1993 SIGMOIDOSCOPY SIGMOIDOSCOPY [facility] Start: 1967 DTaP/Tdap/Td vaccine (1 - Tdap) DTaP/Tdap/Td vaccine (1 - Tdap) [facility] Start: 1967 Urine microalbumin profile [facility] Start: 1966 ANNUAL PCP TEAM CHRONIC DISEASE VISIT ANNUAL PCP TEAM CHRONIC DISEASE VISIT [facility] Start: 1966 Anxiety Screening Anxiety Screening [facility] Start: 1966 Depression Screening Depression Screening [facility] Start: 1966 Diabetic microalbuminuria test Diabetic microalbuminuria test [employer] Phone: Start: 1966 Hepatitis B surface antibody level LDL CHOLESTEROL [facility] Start: 1966 HEPATITIS C SCREENING HEPATITIS C SCREENING [facility] Start: 1966 Hepatitis C screening [facility] Start: 1966 Urine screening for protein [facility] Start: 1960 Adult depression screening assessment DEPRESSION SCREENING [facility] Start: 1958 3 comp foot exam completed DIABETIC FOOT EXAM [facility] Start: 1958 Diabetic foot examination Diabetic Foot Exam [facility] Start: 1958 Hepatitis B screening URINE ALBUMIN:CREATININE RATIO [facility] Start: 1954 PNEUMOCOCCAL: 65+ (1 - PCV) PNEUMOCOCCAL: 65+ (1 - PCV) [facility] Start: 1948 Annual Wellness Visit (AWV) Annual Wellness Visit (AWV) [facility] COVID-19 COVID-19 Lab Kayden ross 03/03/2021 1:21 PM EDT [employer] Phone: Oxygen therapy [[facility] Data Set] Initiate Oxygen Therapy Protocol Respiratory Care Routine Daily until discontinued starting 03/07/2021 [employer] Phone: Comment on above: Daily until discontinued starting 2020 Surgical Pathology Surgical Path ology Lab Routine Release Upon Ordering for 1 Occurrences starting 03/07/2021 [employer] Work Phone: Comment on above: Release Upon Ordering for 1 Occurrences starting 03/07/2021 End: 03-03-2021 Tissue Transglutaminase, IgA Tissue Transglutaminase, IgA Lab Routine Anemia, unspecified type 1 Occurrences starting 03/03/2021 until 03/03/2021 [employer] Work Phone: Comment on above: 1 Occurrences starting 03/03/2021 until 03/03/2021 Tissue Transglutamin ase, IgA Tissue Transglutaminase, IgA Lab Routine Anemia, unspecified type 03/03/2021 10:40 AM EDT [employer] [facility] Work Phone: End: 12-02-2022 Tissue Transglutaminase, IgA [facility] Work Phone: Comment on above: 1 Occurrences starting 12/02/2022 until 12/02/2022 [facility] Immunizations Immunization Date Immunization Notes Care Provider [facility] 08-28-2022 influenza, high dose seasonal, preservative-free Smith Sheikh MD Work Phone: [facility] 08-28-2022 influenza virus vaccine, unspecified formulation Ava Damon OD Work Phone: [facility] 09-26-2021 COVID-19, PFIZER PUR PLE top, DILUTE for use, (age 12 y+), 30mcg/0.3mL Trinidad Licona MD Work Phone: [facility] 07-23-2021 pneumococcal conjuga te vaccine, 13 valent Atul Frazier DO Work Phone: [facility] 07-23-2021 zoster vaccine recombinant Atul Fraz[facility] DO Work Phone: [facility] Work Phone: 02-23-2021 COVID-19, Moderna, Primary or Immunocompromised, PF, 100mcg/0.5mL Smith Sheikh MD Work Phone: [facility] Work Phone: 02-20-2021 Moderna COVID-19 Vaccine 100 MCG/0.5ML Intramuscular Suspension Atul Frazier DO Work [facility]: [facility] Work Phone: 01-31-2021 COVID-19, Moderna, P F, 100mcg/0.5mL [facility] Work Phone: 01-23-2021 Moderna COVID-19 Vaccine 100 MCG/0.5ML Intramuscular Suspension Atul Frazier DO Work Phone: [facility] Work Phone: 10-26-2020 Influenza, High-dose , Quadv, 65 yrs +, IM (Fluzone) [facility] Work Phone: Payers Date Payer Category Payer Self-pay 2017 Medicare HU[employer]NA MEDICARE HU[employer]NA MEDICARE PPO [id number] 2017-Present [phone] [place] [address] PPO [id number] 2017 Medicare HUMANA MEDICARE HU[employer]NA MEDICARE PPO [id number] 2017-Present [phone] [address] [place] [address] PPO [id number] 1959 Private Health Insurance [id number] 1948 Unknown [id number] 2.16.840.1.228075.3.579.2 .593 1948 Unknown [id number] 2.16.840.1.729244.3.579.2 .593 1948 Unknown [id number] 2.16.840.1.995254.3.579.2 .593 1948 Unknown [id number] 2.16.840.1.901705.3.579.2 .593 1948 Unknown [id number] 2.16.840.1.121916.3.579.2 .593 1948 Unknown [id number] 2.16.840.1.496726.3.579.2 .593 1948 Unknown [id number] 2.16.840.1.203363.3.579.2 .593 1948 Unknown [id number] 2.16.840.1.218942.3.579.2 .593 1948 Unknown [id number] 2.16.840.1.840209.3.579.2 .593 1948 Unknown [id number] 2.16.840.1.883087.3.579.2 .593 1948 Unknown [id number] 2.16.840.1.548154.3.579.2 .593 1948 Unknown [id number] 2.16.840.1.122679.3.579.2 .176 1948 Unknown [id number] 2.16.840.1.936251.3.579.2 .176 1948 Unknown [id number] 2.16.840.1.578409.3.579.2 .176 1948 Unknown [id number] 2.16.840.1.335546.3.579.2 .175 1948 Unknown [id number] 2.16.840.1.521864.3.579.2 .175 1948 Unknown [id number] 2.16.840.1.631238.3.579.2 .175 1948 Unknown [id number] 2.16.840.1.688686.3.579.2 .175 1948 Unknown [id number] 2.16.840.1.196446.3.579.2 .175 1948 Unknown [id number] 2.16.840.1.657484.3.579.2 .175 1948 Unknown [id number] 2.16.840.1.472597.3.579.2 .1286 1948 Unknown [id number] 2.16.840.1.508134.3.579.2 .1286 1948 Unknown [id number] 2.16.840.1.158751.3.579.2 .1286 1948 Unknown [id number] 2.16.840.1.201951.3.579.2 .128 1948 Unknown [id number] 2.16.840.1.872231.3.579.2 .128 1948 Unknown [id number] 2.16.840.1.921056.3.579.2 .1286 1948 Unknown [id number] 2.16.840.1.519866.3.579.2 .1286 1948 Unknown [id number] 2.16.840.1.426937.3.579.2 .1244 Unknown [employer] GOLD CHOICE Unknown [id number] 2.16.840.1.869453.3.579.2 .531 Social History Date Type Detail Facility Start: 02-26-2021 End: 03-10-2023 Tobacco smoking status NCIS Never smoker [facility] Start: 02-26-2021 End: 03-10-2023 Tobacco use and exposure Never used [employer] Phone: Start: 02-26-2021 End: 02-02-2024 Alcohol intake Current non-drinker of alcohol (finding) [employer] Phone: Start: 02-05-2021 History SDOH Social Connections Phone 5 [employer] Phone: Start: 02-05-2021 End: 02-19-2022 History SDOH Social Connections Get Together 1 [employer] Phone: Start: 02-05-2021 History SDOH Social Connections [employer] Work Phone: Start: 02-05-2021 History SDOH Physical Activity DPW 0 [employer] [facility] Work Phone: Start: 02-05-2021 History SDOH Education 12 [employer] Phone: Start: 02-05-2021 History SDOH IPV Fear 2 [employer] Phone: Start: 05-19-2013 Alcohol Comment never drank [employer] Phone: Start: 1950 Sex Assigned At Not on file [employer] [facility] Work Phone: Start: 01-23-2022 End: 12-08-2022 Exposure to SARS-CoV-2 (event) Not sure [employer] Phone: Start: 11-03-2021 End: 03-26-2023 No alcohol use No alcohol use -[facility] DO Work Phone: Start: 02-19-2022 End: 08-29-2024 Alcohol intake Lifetime non-drinker (finding) [facility] Start: 02-05-2021 End: 03-26-2023 Sex Assigned At [facility] [employer] Other Start: 08-28-2022 History SDOH Financial 4 [employer] Work Phone: Do you belong to any clubs or organizations such as baptist groups, unions, fraternal or athletic groups, or school groups? Yes [employer] Are you now , , , , never or living with a partner? [employer] How hard is it for y ou to pay for the very basics like food, housing, medical care, and heating Not hard at all [employer] Do you feel stress - tense, restless, nervous, or anxious, or unable to sleep at night because your mind is troubled all the time - these days [OSQ] Not at all [employer] (I/We) worried wheth er (my/our) food would run out before (I/we) got money to buy more. Never true [employer] At any time in the p ast 12 months, were you homeless or living in retirement [including now]? No [employer] Medical Equipment Procedure Code Equipment Code Equipment Origin al Text Equipment Identifier Dates 100 each by In V itro route 2 times daily As needed. [id number] Start: 02-24-2018 1 kit by Does no t apply route 2 times daily [id number] Start: 02-24-2018 Patient test blo od sugar BID [id number] Start: 02-24-2018 End: 12-08-2022 Lens Iol +21.5 D iop Acrsf Iq - [id number] Start: 01-10-2014 100 each by In V itro route 2 times daily As needed. [id number] Start: 07-28-2022 Clinical Notes 11-03-2010 to 09-28-2024 [...] Would like something sent to [facility] in [place] on [address] [facility] 09-28-2024 Miscellaneous Notes Pt is requesting a new eye drop prescription or another alternative due to the rx that was given being to expensive. Pt states they are 25 dollars and too much. Would like something else. Would like something sent to [facility] in [place] on [address] documented in this encounter [facility] 08-29-2024 Note HNO ID: [id number] Author: AAV DAMON OD Service: ? Author Type: BILINGUAL PATIENT SUPPORT CASEWORKER Type: Progress Notes Filed: 08/29/2024 15:26 Note [...] Damon, OD August 29, 2024 3:24 PM [facility] 08-29-2024 History of Present illness Narrative ASSESSMENT/PLAN: [...] PM documented in this encounter [facility] 08-29-2024 Instructions Ava Damon OD - 08/29/2024 11:44 AM EDT Short term: start maxitrol drops (steroid) 3 times daily in both eyes for 5 days, then stop. 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 Go back to Refresh for artificial tears documented in this encounter [facility] 06-12-2024 Note XR CHEST 2 VWS Procedure: Chest x-ray performed Number of views:2 History:Chest pain Covid positive Comparison:01/20/2020 Findings: The heart and lungs show no acute findings, and the mediastinum and brennen are grossly negative . Impression: 1. No acute change. Finalized by Marvin Ackerman MD on 06/12/2024 9:29 PM [facility] 03-13-2024 Instructions Ava Damon OD - 03/13/2024 11:10 AM EDT Dry eye is likely causing the blurred vision in the morning, and blurriness that gets worse with prolonged reading. Start using artificial tears 2-3 times daily, when needed. Here are some good jmzc-mvr-nlrhbim brands: Systane, Refresh, TheraTears Restart the pataday allergy drops in both eyes every morning during allergy seasons documented in this encounter [facility] 03-13-2024 Note HNO ID: [id number] Author: AVA DAMON OD Service: ? Author Type: BILINGUAL PATIENT SUPPORT CASEWORKER Type: Progress Notes Filed: 03/13/2024 11:12 Note [...] Damon OD March 13, 2024 11:08 AM [facility] 03-13-2024 History of Present illness Narrative ASSESSMENT/PLAN: [...] AM documented in this encounter [facility] 02-23-2024 History of Present illness Narrative Pt called to cancel appt she is ill will call office to reschedule. documented in this encounter [facility] 02-23-2024 Hospital Discharge instructions Chichi Castrejon RN [...] may use ice to reduce soreness. Call [facility] at [phone] if you experience: Fever, chills or temperature over 100 Vomiting, Headache, persistent stiff neck, nausea, blurred vision Difficulty in urinating or unable to urinate with 8 hours Increase in weakness, numbness or loss of function Increased redness, swelling or drainage at the injection site documented in this encounter [facility] 02-02-2024 Hospital Discharge instructions Chichi Castrejon RN [...] Please complete pain diary as instructed. Call [facility] at [phone] if you experience: Fever, chills or temperature over 100 Vomiting, Headache, persistent stiff neck, nausea, blurred vision Difficulty in urinating or unable to urinate with 8 hours Increase in weakness, numbness or loss of function Increased redness, swelling or drainage at the injection site documented in this encounter [facility] 12-28-2023 Evaluation note Encounter Date Diagnosis [...] understanding and is agreeable to treatment plan [facility] Other 06-23-2023 NoteHNO ID: [id number] Author: RT Brandyn(R) Service: Radiology Author Type: Commercial Lending Relationship Manager Type: Progress Notes Filed: 05/14/2023 1:06 PM [...] Milagros Cox RT(R) May 14, 2023 1:06 [id number] Miscellaneous Notes* Telephone Encounter - Dominique Meneses LPN - 05/14/2023 1:24 PM EDT 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 Energy Audit Advisor: No 5. What are your limitations: Standing [...] not taking: No sig reported) MV with Ncg-Iahldzrc-Gkvgwi 0.4 mg-300 mcg- 250 mcg tab Take [...] Past Histories independently gathered by the clinical patient support tech and the remaining scribed note accurately describes [...] surgical care. No neurological deficits noted during [facility] exam. PT - Core stabilization exercises, [...] which included preparing to see the patient, zdgm-el-joqu patient care, completing clinical documentation, obtaining and/or [...] DO, LISA [facility] Miscellaneous Notes* Telephone Encounter - Frank Pillai - 05/11/2023 9:26 AM EDT 05/11/2023 LVM [facility] Evaluation note* Encounter Date Diagnosis Assessment Notes [...] fever. Patient verbalized understanding of treatment plan. [facility] Other 05-30-2023 NoteCONSULTATION CONSULTATION DATE: 04/20/2023 TO: [facility] HISTORY: Patient presents today complaining of 5-7/10 [...] consider follow up with the [facility], as the patient is requesting the same. In the interim, I have asked her to discontinue her baclofen secondary to ineffectiveness. To continue with the tramadol until she follows up with her new physician and primary caregivers for pain management at the [facility], and we will facilitate that referral. As part of providing excellent, safe, comprehensive care, the following was completed at our patient's visit: 1. A medication reconciliation and review to ensure accurate knowledge of current/active medications, including asking our patients to inform us about any oouk-wqu-sdkfpyt medications or herbal remedies/nutritional supplements/alternative remedies. 2. [...] treatment options with their primary care provider.[facility] [id number] History of Present illness Narrative* Blayne Haro, [...] 3:00 PM [facility] NoteCONSULTATION CONSULTATION DATE: 02/11/2023 TO: [facility] CHIEF COMPLAINT: Includes right sided hip pain, [...] of the iliohypogastric nerve under fluoroscopic guidance.[facility] 12-23-2022 Miscellaneous Notes* Telephone Encounter - Yaquelin Wang - 12/23/2022 3:30 PM EST Called patient and told her about the recommendation to see Dr. Childers in [place]. * Telephone Encounter - Yaquelin Wang - [...] would like it to go to the [facility] on [address] in [place]. Please advise. [facility] History of Present illness Narrative* Shanna Woody [...] lotion, powder, jewelry, piercings, perfume, makeup, nail armenian, hair accessories, or hair spray on the day of surgery. Wear loose comfortable clothing. Leave your valuables at home. Bring a storage case for any glasses/contacts. An adult who is responsible for you MUST drive you home and should be with you for the first 24 hours after surgery. The Day of Surgery: Arrive at [facility] at the time directed by your surgeon and check in at the desk. If you have a living will or healthcare power of southeast regional sales manager, please bring a copy. You will be taken to the pre-op holding area where you will be prepared for surgery. A physical assessment will be performed by a nurse practitioner or compressor house operator. Your IV will be started and you [...] and understanding verbalized. documented in [facility] encounter[facility]ans[facility] Phone: [phone]) 927-622412-20-2022 NoteCONSULTATION CONSULTATION DATE: 11/10/2022 CHIEF COMPLAINT: Low [...] mg b.i.d. will be refilled for her.[facility] [id number] Evaluation note* Encounter Date Diagnosis Assessment Notes [...] the ER for worsening symptoms or concerns. [facility] Other 08-10-2022 NoteCONSULTATION CONSULTATION DATE: 07/01/2022 This is a pleasant 72-year-old female returning to the clinic for a 3-month follow-up for her chronic lower back pain and right hip pain. Today she was complaining of right buttocks pain and hip pain that she feels is affecting her ambulation. She rates it 7 out of 10 and describes it as sharp. 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 [facility] [place] Evaluation note* Encounter Date Diagnosis Assessment Notes [...] Patient care instructions given in writting by [facility] Care At Home document. [facility] [employer] Other 03-31-2022 History of Present illness Narrative* [...] 11:51 AM documented [facility] [place] Chief complaint Narrative - Reported* MARAH SILVA [...] a history of prior heart catheterization in [place] remotely that revealed normal coronary arteries. I [...] and also offered conservative based medical therapies. [facility] 250 DO Work Phone: 1([phone]) 500-134712-13-2010 History of Past illness Narrative* Problem Noted Date Resolved Date Senile cataract, unspecified 11/03/2010 documented as of this encounter (statuses as of 02/19/2022) [facility]12-13-2010 History of Past illness Narrative* Problem Noted Date Resolved Date Senile cataract, unspecified 11/03/2010 documented as of this encounter (statuses as of 04/15/2022) [facility]12-13-2010 History of Past illness Narrative* Problem Noted Date Resolved Date Senile cataract, unspecified 11/03/2010 documented as of this encounter (statuses as of 12/23/2022) [facility]12-13-2010 History of Past illness Narrative* Problem Noted Date Resolved Date Senile cataract, unspecified 11/03/2010 documented as of this encounter (statuses as of 03/29/2023) [facility]12-13-2010 History of Past illness Narrative* Problem Noted Date Resolved Date Senile cataract, unspecified 11/03/2010 documented as of this encounter (statuses as of 05/11/2023) [facility]12-[facility]2010 History of Past illness Narrative* Problem Noted Date Resolved Date Senile cataract, unspecified 11/03/2010 documented as of this encounter (statuses as of 05/14/2023) [facility]12-13-2010 History of Past illness Narrative* Problem Noted Date Resolved Date Senile cataract, unspecified 11/03/2010 documented as of this encounter (statuses as of 05/14/2023) [facility] Narrative - Johnathon SILVA is being seen for a consultation for abnormal test(s) results.-[facility] [employer] Work Phone: Evaluation note* Diagnosis Diabetes mellitus [...] disorders [facility]* Diagnosis Other iron deficiency anemia documented in this encounter [employer] Phone: evaluation note* Diagnosis Chronic anemia Anemia, unspecified Weight loss Loss of weight Iron deficiency anemia secondary to inadequate dietary iron intake Gastroesophageal reflux disease without esophagitis Esophageal reflux documented in this encounter [facility] [employer] Phone: evaluation note* Diagnosis Left facial pain- Primary Headache Keratoconjunctivitis sicca of both eyes not specified as Sjogren's Keratoconjunctivitis sicca, not specified as Sjogren's Bilateral cornea scars Corneal opacity, unspecified Diabetes mellitus type 2 without retinopathy (HCC) Type II or unspecified type diabetes mellitus without mention of complication, not stated as uncontrolled [facility]* Diagnosis Spinal stenosis of lumbar region, unspecified whether neurogenic claudication present- Primary Degenerative arthropathy of spinal facet joint Spondylosis of unspecified site without mention of myelopathy Myalgia Mylagia and myositis, unspecified Postural imbalance Disorders of soft tissue, unspecified documented in this encounter [facility] note* Diagnosis Lumbosacral spondylosis without myelopathy- Primary documented in this encounter [facility] note* Diagnosis Diabetes mellitus type 2 without [...] by other means documented in this encounter [facility] note* Diagnosis Other chronic allergic conjunctivitis of both eyes- Primary Keratoconjunctivitis sicca of both eyes not specified as Sjogren's Keratoconjunctivitis sicca, not specified as Sjogren's Bilateral cornea scars Corneal opacity, unspecified Pseudophakia of both eyes Lens replaced by other means documented in this encounter [facility] general Narrative - Reported* Type Description Date Medical History diabetes mellitus Medical History Hypothyroidism Medical History osteoporosis Medical History Chronic obstructive pulmonary di sease Medical History Hearing loss Medical History asthma Surgical History cholecystectomy Surgical History partial hysterectomy Surgical History tonsillectomy Surgical History colonoscopy Surgical History ear surgery Surgical History back ablasion Hospitalization History See Above [facility] Other Hishidt general Narrative - Reported* Type Description Date Medical History diabetes mellitus Medical History Hypothyroidism Medical History osteoporosis Medical History Chronic obstructive pulmonary di sease Medical History Hearing loss Medical History asthma Surgical History cholecystectomy Surgical History partial hysterectomy Surgical History tonsillectomy Surgical History colonoscopy Surgical History ear surgery Surgical History back ablasion Hospitalization History See Above Hospitalization History blood pressure elevated [facility] Other Reason for referral (narrative)* - Pending Review Specialty Diagnoses / Procedures Referred By Bernardino mcmahan Referred To Contact Physical Therapy Diagnoses Spinal stenosis of lumbar region, unspecified whether neurogenic claudication present Degenerative arthropathy of spinal facet joint Myalgia Postural imbalance Procedures CONSULT [place] [address] [place] [address] Referral ID Status Reason Start Date Expiration Date V isits Requested Visits Authorized [id number] Pending Review 05/14/2023 08/12/2023 1 1 * Diagnostic Procedure Only (Routine) - Closed Specialty Diagnoses / Procedures Referred By Contac t Referred To Contact XR IMAGING Diagnoses Spinal stenosis of lumbar region, unspecified whether neurogenic claudication present Degenerative arthropathy of spinal facet joint Myalgia Postural imbalance Procedures XR PELVIS 1V AP RADIOLOGIC EXAMINATION PELVIS 1/[place] [address] [place] [address] Xr Imaging Referral ID Status Reason Start Date Expiration Date V isits Requested Visits Authorized [id number] Closed Auto-Generate d Referral 05/14/2023 06/12/2024 1 1 * Diagnostic Procedure Only (Routine) - Closed Specialty Diagnoses / Procedures Referred By Contac t Referred To Contact XR IMAGING Diagnoses Spinal stenosis of lumbar region, unspecified whether neurogenic claudication present Degenerative arthropathy of spinal facet joint Myalgia Postural imbalance Procedures XR LUMBAR GENERAL 3V AP/LAT/L5-S1 RADEX SPINE LUMBOSACRAL 2/3 [place] [address] [place] [address] Xr Imaging Referral ID Status Reason Start Date Expiration Date V isits Requested Visits Authorized [id number] Closed Auto-Generate d Referral 05/14/2023 06/12/2024 1 1 [facility] History of Present Illness * Gay Lin [...] lotion, powder, jewelry, piercings, perfume, makeup, nail armenian, hair accessories, or hair spray on the day of surgery. Wear loose comfortable clothing. 4. Leave your valuables at home. Bring a storage case for any glasses/contacts. 5. An adult who is responsible for you MUST drive you home and should be with you for the first 24 hours after surgery. The Day of Surgery: Arrive at [facility] at the time directed by your surgeon and check in at the desk. If you have a living will or healthcare power of southeast regional sales manager, please bring a copy. You will be taken to the pre-op holding area where you will be prepared for surgery. A physical assessment will be performed by a nurse practitioner or compressor house operator. Your IV will be started and you [...] Documents on File Type Date Recorded Patient Produce Inspector Expl anation ACP-Advance Directive ACP-Power of Scoop Operator Documents on File Type Date Recorded Patient Produce Inspector Expl anation ACP-Advance Directive ACP-Power of Scoop Operator Assessments Diagnosis Pre-op testing- Primary Preoperative [...] if your caregiver approves them. Only take ykmm-vav-yuqtkyx or prescription medicines for pain, discomfort, or [...] [facility] [place] Patient Information 2013 [employer]. Colonoscopy: What to Expect at Home Your [...] Where can you learn more? Go to [email or web address] and sign in to your [employer] account. Enter E264 in the Search Health Information box to learn more about Colonoscopy: What to Expect at Home. If you do not have an account, please click on the Sign Up Now link. [phone] [employer]. Care instructions adapted under license by [facility] [employer]. This care instruction is for use with your licensed healthcare professional. If you have questions about a medical condition or this instruction, always ask your healthcare professional. [employer] disclaims any warranty or liability for your use of this information. Content Version: [id number]; Last Revised: January 11, 2013 EGD DISCHARGE [...] of fluids when exercising. MEDICATIONS: Take an ngnc-boc-wggpphs fiber supplement as noted above twice daily. [...] to call your physician or the hospital paper and pulp mill operator if you have any questions, and [...] rocha burgers, eggplant lasagna, and veggie tofu stir-fuchs. Choose high-fiber snacks, such as fruits, popcorn, [...] Whole-grain breads, muffins, bagels, or verna bread [place] bread Whole-wheat crackers or crisp breads Whole-grain or bran cereals Oatmeal, oat bran, or grits Wheat germ Whole-wheat pasta and brown rice Read the ingredients list on food labels. Look for products that list whole as the first ingredient (eg, whole-wheat, whole oats). Choose cereals with at least 2 grams of fiber per serving. Vegetables All vegetables, especially asparagus, rocha sprouts, broccoli, [place] sprouts, cabbage, carrots, cauliflower, celery, corn, greens, [...] All nuts and seeds, especially almonds, peanuts, [place] nuts, cashews, peanut butter, walnuts, sesame and [...] be sent through Care Everywhere. * Esophagitis (Nepali) documented in this encounter Family History Unknown [...] Contact Diagnoses Anemia ANEMIA COVID 03/03 Procedures UT ESOPHAGOGASTRODUODENOSCOPY TRANSORAL DIAGNOSTIC UT COLONOSCOPY FLX DX W/COLLJ SPEC WHEN PFRMD EGD COLONOSCOPY DIAGNOSTIC Bobbi Nunez MD [address], [facility] [address] [place] [address] [facility] Reason Comments Keratoconjunctivitis sicca Reason Comments Patient Question Reason Onset Date Comments Opened In Error 12/23/2022 Reason Comments Eye Problem Left Eye Reason Comments Appointment Cancelled Reason Comments Pain Rt lower back pain Reason Comments Medication Question Specialty Diagnoses / Procedures Referred By Contac t Referred To Contact Pain Management Diagnoses Spondylosis without myelopathy or radiculopathy, lumbosacral region Procedures UT NJX DX/THER AGT PVRT FACET JT LMBR/SAC 1 LEVEL UT NJX DX/THER AGT PVRT FACET JT LMBR/SAC 2ND LEVEL Trinidad Licona MD [address] [place] [address] Trinidad Licona MD [address] [place] [address] Referral ID Status Reason Start Date Expiration Date Visits Re quested Visits Authorized [id number] Open 01/05/2024 01/04/2025 1 1 Specialty Diagnoses / Procedures Referred By Contadán t Referred To Contact Pain Management Diagnoses Spondylosis without myelopathy or radiculopathy, lumbosacral region Procedures UT DSTR NROLYTC AGNT PARVERTEB FCT SNGL LMBR/SACRAL UT DSTR NROLYTC AGNT PARVERTEB FCT ADDL LMBR/SACRAL Trinidad Licona MD [address] [place] [address] Trinidad Licona MD [address] [place] [address] Referral ID Status Reason Start Date Expiration Date Visits Re quested Visits Authorized [id number] Open 02/23/2024 05/24/2024 1 1 Reason Comments Diabetic Eye Exam Reason Comments Tearing Both Eyes Reason Comments Medication Problem INFORMATION SOURCE (unrecogn ized section and content) DATE CREATED AUTHOR 09/03/2021 Qminder DATE CREATED AUTHOR AUTHOR'S ORGANIZ ATION 12/26/2022 [facility] DATE CREATED AUTHOR AUTHOR'S ORGANIZ ATION 04/30/2023 [facility] DATE CREATED AUTHOR AUTHOR'S ORGANIZ ATION 05/15/2023 [facility] DATE CREATED AUTHOR AUTHOR'S ORGANIZ ATION 12/03/[address] [facility] DATE CREATED AUTHOR AUTHOR'S ORGANIZ ATION 03/23/2024 [facility] DATE CREATED AUTHOR AUTHOR'S ORGANIZ ATION 06/15/2024 [facility] DATE CREATED AUTHOR AUTHOR'S ORGANIZ ATION 07/27/2024 [facility] DATE CREATED AUTHOR AUTHOR'S ORGANIZ ATION 08/30/2024 [facility] Source Comments (unrecognize d section and content) In the event this informatio n is protected by the Federal Confidentiality of Alcohol and Drug Abuse Patient Records regulations: The Federal rules restrict any use of the information to criminally investigate or prosecute any alcohol or drug abuse patient.[facility] [place] the event this information is protected by the Federal Confidentiality of Alcohol and Drug Abuse Patient Records regulations: The Federal rules restrict any use of the information to criminally investigate or prosecute any alcohol or drug abuse patient.[facility] [place] the event this information is protected by the Federal Confidentiality of Alcohol and Drug Abuse Patient Records regulations: The Federal rules restrict any use of the information to criminally investigate or prosecute any alcohol or drug abuse patient.[facility] [place] the event this information is protected by the Federal Confidentiality of Alcohol and Drug Abuse Patient Records regulations: The Federal rules restrict any use of the information to criminally investigate or prosecute any alcohol or drug abuse patient.[facility] [place] the event this information is protected by the Federal Confidentiality of Alcohol and Drug Abuse Patient Records regulations: The Federal rules restrict any use of the information to criminally investigate or prosecute any alcohol or drug abuse patient.[facility] [place] the event this information is protected by the Federal Confidentiality of Alcohol and Drug Abuse Patient Records regulations: The Federal rules restrict any use of the information to criminally investigate or prosecute any alcohol or drug abuse patient.[facility] [place] the event this information is protected by the Federal Confidentiality of Alcohol and Drug Abuse Patient Records regulations: The Federal rules restrict any use of the information to criminally investigate or prosecute any alcohol or drug abuse patient.[facility] [place] the event this information is protected by the Federal Confidentiality of Alcohol and Drug Abuse Patient Records regulations: The Federal rules restrict any use of the information to criminally investigate or prosecute any alcohol or drug abuse patient.[facility] [place] the event this information is protected by the Federal Confidentiality of Alcohol and Drug Abuse Patient Records regulations: The Federal rules restrict any use of the information to criminally investigate or prosecute any alcohol or drug abuse patient.[facility] [place]In the event this information is protected by the Federal Confidentiality of Alcohol and Drug Abuse Patient Records regulations: The Federal rules restrict any use of the information to criminally investigate or prosecute any alcohol or drug abuse patient.[facility] [place]In the event this information is protected by the Federal Confidentiality of Alcohol and Drug Abuse Patient Records regulations: The Federal rules restrict any use of the information to criminally investigate or prosecute any alcohol or drug abuse patient.[facility] [place] Care Teams (unrecognized sec tion and content) Cigarette Tipper Relationship Specialty Start Date End Date Smith Sheikh MD [address] [place] [address], [place] [address] PCP - General 01/08/14 Cigarette Tipper Relationship Specialty Start Date End Date Smith Sheikh MD [address] [place] [address], [place] [address] PCP - General Family Medicine 05/18/13 Cigarette Tipper Relationship Specialty Start Date End Date Smith Sheikh MD [address] [place] [address], [place] [address] PCP - General Family Medicine 05/18/13 Cigarette Tipper Relationship Specialty Start Date End Date Smith Sheikh MD [address] [place] [address], [place] [address] PCP - General 01/08/14 Cigarette Tipper Relationship Specialty Start Date End Date Smith Sheikh MD [address] [place] [address], [place] [address] PCP - General Family Medicine 05/18/13 Cigarette Tipper Relationship Specialty Start Date End Date Smith Sheikh MD [address] [place] [address], [place] [address] PCP - General 01/08/14 Cigarette Tipper Relationship Specialty Start Date End Date Smith Sheikh MD [address] [place] [address], [place] [address] PCP - General 01/08/14 Cigarette Tipper Relationship Specialty Start Date End Date Smith Sheikh MD [address] [place] [address], [place] [address] PCP - General 01/08/14 Cigarette Tipper Relationship Specialty Start Date End Date Smith Sheikh MD [address] [place] [address], [place] [address] PCP - General 01/08/14 Cigarette Tipper Relationship Specialty Start Date End Date Smith Sheikh MD [address] [place] [address] PCP - General Family Medicine 05/18/13 Cigarette Tipper Relationship Specialty Start Date End Date Smith Sheikh MD [address] [place] [address] PCP - General Family Medicine 05/18/13 Cigarette Tipper Relationship Specialty Start Date End Date Smith Sheikh MD [address] [place] [address] PCP - General 01/08/14 Cigarette Tipper Relationship Specialty Start Date End Date Smith Sheikh MD [address] [place] [address] PCP - General 01/08/14 Cigarette Tipper Relationship Specialty Start Date End Date Smith Sheikh MD [address] [place] [address] PCP - General 01/08/14 FOR RECORDS PERTAINING [...] BE BASED ON THE PRIMARY CLINICAL RECORDS. [facility]. provides no warranty or guarantee of the accuracy or completeness of information in this document.
[2024-09-29 23:15] VITALS: O2SAT 98
[2024-09-29 23:19] LABS: Glucometer 132 mg/dL (74-106)
[2024-09-29] MEDS: TIZANIDINE HCL 4 MG TABLET 2 MG PO (23:24)
[2024-09-29] MEDS: 0.9 % SODIUM CHLORIDE 1,000 ML 100 ML IV (23:38)
[2024-09-29 23:41] VITALS: PULSE 87
[2024-09-30] VITALS (28 sets, daily range): BP systolic 90–131; BP diastolic 50–83; PULSE 73–103; TEMP 36.4–37.1; O2SAT 93–100
[2024-09-30] MEDS: ALBUTEROL SULFATE 2.5 MG/3 ML VIAL NEB IH ×4 (05:21→22:33)
[2024-09-30 06:26] LABS: Basophils Percent Auto 0.4 % (0.2-2.0); Eosinophils Absolute Auto 0.3 10^3/uL (0.0-0.7); Hemoglobin 7.6 g/dL (12.0-16.0); Immature Granulocytes Abs Auto 0.02 10^3/uL (0.00-0.03); Immature Granulocytes Pct Auto 0.2 % (0.0-0.5); Lymphocytes Absolute Auto 3.5 10^3/uL (1.2-3.8); Lymphocytes Percent Auto 38.3 % (20.5-60.0); Mean Corpuscular HGB Conc 32.2 g/dL (29.9-35.2); Mean Corpuscular Hemoglobin 30.2 pg (26.7-34.0); Mean Corpuscular Volume 93.7 fL (81.0-99.0); Mean Platelet Volume 9.3 fL (9.5-13.5); Monocytes Absolute Auto 0.6 10^3/uL (0.3-0.8); Monocytes Percent Auto 6.4 % (1.7-12.0); Neutrophils Absolute Auto 4.7 10^3/uL (1.4-6.5); Neutrophils Percent Auto 51.7 % (43.0-75.0); Platelet Count 217 10^3/uL (150-450); Red Blood Count 2.52 10^6/uL (4.20-5.40); Red Cell Distribution Width 14.1 % (11.0-15.0); White Blood Count 9.2 10^3/uL (4.0-11.0)
[2024-09-30 06:30] LABS: Bilirubin Urine NEGATIVE (NEGATIVE); Blood Urine NEGATIVE (NEGATIVE); Clarity Urine CLEAR (CLEAR); Color Urine LT. YELLOW (YELLOW); Glucose Urine UA NEGATIVE (NEGATIVE); Ketones Urine NEGATIVE (NEGATIVE); Leukocyte Esterase Urine NEGATIVE (NEGATIVE); Nitrite Urine POSITIVE (NEGATIVE); Protein Urine NEGATIVE (NEG/TRACE); Urobilinogen Urine 0.2 EU/dL (0.2-1.0)
[2024-09-30] MEDS: LEVOTHYROXINE SODIUM 100 MCG TABLET PO (06:32)
[2024-09-30 06:39] LABS: Hematocrit 23.6 % (36.0-48.0)
[2024-09-30 06:49] LABS: Anion Gap 15.4; BUN Creatinine Ratio 39.6; Calcium 8.3 mg/dL (8.5-10.1); Carbon Dioxide 24.7 mmol/L (21.0-32.0); Chloride 109 mmol/L (98-107); Estimated GFR (African America >60 (>=60 mL/min/1.73m^2); Estimated GFR (Non-African Ame >60 (>=60 mL/min/1.73m^2); Glucose 102 mg/dL (74-106); Magnesium 1.5 mg/dL (1.8-2.4); Potassium 4.1 mmol/L (3.5-5.1); Sodium 145 mmol/L (136-145)
[2024-09-30 06:51] LABS: INR 1.07; Partial Thromboplastin Time 24.1 sec (22.3-36.2); Prothrombin Time 11.3 sec (9.0-11.6)
[2024-09-30 07:00] LABS: Lactate/Lactic Acid 1.3 mmol/L (0.4-2.0)
--- NOTE | 2024-09-30 08:07 | P.GSCN_ITS ---
History of Present Illness Consult details Consult date: 09/30/24 Reason for consult: other (Hematemesis/anemia/acute GI bleed according to ED) Requesting physician: Chintan Toribio Narrative: Marah Silva is a 74-year-old female who presented to the ED last evening with a complaints of hematemesis and black tarry stools associate with nausea and vomiting which began evening after she had just been prescribed Mounjaro by her PCP (Dr. Thacker/Ondina) in [place]. She was placed on this for weight loss?. Patient has a longstanding history of osteoarthritis and chronic back pain for which she is seeing [facility] management at [facility] who performed radiofrequency ablation without good results according to her. She then sought care at [facility] pain management and now is seeking care with [facility] in [place] and receiving acupuncture for her back pain. She was also being treated for bronchitis and giving herself albuterol treatments. She takes iron 3 times a week according to her but her chart states that she takes it more often. She is also taking a baby aspirin daily as well as meloxicam which she has been on for a year. She is also taking Protonix and Carafate as well. Denies any previous history of ulcer disease. She has had melena. She cannot remember when she had her last colonoscopy and she has a positive family history of colon cancer in her older sister. She denies any abdominal pain but has chronic back pain. She was found to be anemic with a hemoglobin of 8.8 g. She denies any shortness of breath chest pain or dizziness currently. She had a positive Hemoccult test performed by the ED physician. Review of Systems ROS Status of ROS 10 or more systems reviewed and unremark able except as noted in history and below [facility] Medical History (Updated 09/30/24 @ 08:15 by Oscar Villatoro MD) On home oxygen therapy ?Z99.81 - Dependence on supplemental oxygen (ICD-10) Sleep apnea ?G47.30 - Sleep apnea, unspecified (ICD-10) Thyroid disease ?E07.9 - Disorder of thyroid, unspecified (ICD-10) Heart attack ?I21.9 - Acute myocardial infarction, unspecified (ICD-10) Arthritis ?M19.90 - Unspecified osteoarthritis, unspecified site (ICD-10) COPD (chronic obstructive pulmonary disease) ?J44.9 - Chronic obstructive pulmonary disease, unspecified (ICD-10) Elevated cholesterol ?E78.00 - Pure hypercholesterolemia, unspecified (ICD-10) HTN (hypertension) ?I10 - Essential (primary) hypertension (ICD-10) Diabetes 1.5, managed as type 2 ?E13.9 - Other specified diabetes mellitus without complications (ICD-10) Surgical History History of cholecystectomy ?Z90.49 - Acquired absence of other specified parts of digestive tract (ICD- 10) Family History Father Family history of CHF (congestive heart failure) Sister Family history of cancer Mother Family history of myocardial infarction Other Family history of diabetes mellitus Family history of hypertension Social History Smoking status: Never smoker Highest level of school completed/degree received: high school graduate Little interest or pleasure in doing things: not at all Feeling down, depressed, or hopeless: not at all Meds Home Medications and Allergies Home Medications ?Medication ?Instructions ?Recorded ?Confirmed ?Type albuterol sulfate 90 mcg/actuation 2 puff inhalation DAILY PRN 01/01/24 09/29/24 History aerosol inhaler shortness of breath or wheezing amlodipine 2.5 mg tablet 2.5 mg PO DAILY 01/01/24 09/29/24 History aspirin 81 mg tablet,delayed 81 mg PO DAILY 01/01/24 09/29/24 History release (Adult Aspirin Regimen) atorvastatin 10 mg tablet 10 mg PO DAILY 01/01/24 09/29/24 History benzonatate 100 mg capsule 100 mg PO TID PRN cough 01/01/24 09/29/24 History fluticasone 250 mcg-salmeterol 50 1 inh inhalation Q12H 01/01/24 09/29/24 History mcg/dose blistr powdr for inhalation levothyroxine 100 mcg tablet 100 mcg PO DAILY 01/01/24 09/29/24 History (Synthroid) loratadine 10 mg tablet 10 mg PO DAILY 01/01/24 09/29/24 History meloxicam 7.5 mg tablet 7.5 mg PO DAILY PRN pain #10 tabs 01/01/24 09/29/24 Rx metformin 500 mg tablet 500 mg PO DAILY 01/01/24 09/29/24 History mometasone 50 mcg/actuation nasal 2 spray intranasal DAILY 01/01/24 09/29/24 History spray pantoprazole 40 mg tablet,delayed 40 mg PO DAILY 01/01/24 09/29/24 History release ramipril 10 mg capsule 10 mg PO DAILY 01/01/24 09/29/24 History albuterol 90 mcg/actuation aerosol 90 mcg inhalation QID 09/29/24 09/29/24 History inhaler biotin 10,000 mcg disintegrating 10,000 mcg PO DAILY 09/29/24 09/29/24 History tablet ferrous sulfate 325 mg (65 mg 325 mg PO BID 09/29/24 09/29/24 History iron) tablet (Destinee-Time) fluticasone propionate 50 2 spray intranasal DAILY 09/29/24 09/29/24 History mcg/actuation nasal spray,suspension neomycin-polymyxin B-dexameth eye 1 drp ophthalmic (eye) TID 09/29/24 09/29/24 History drops,suspension ondansetron HCl 4 mg tablet 4 mg PO Q8H 09/29/24 09/29/24 History sucralfate 1 gram tablet 1 g PO Q6H 09/29/24 09/29/24 History tirzepatide 2.5 mg/0.5 mL 2.5 mg subcut QWEEK 09/29/24 09/29/24 History subcutaneous pen injector (Mounjaro) tizanidine 2 mg tablet 2 mg PO Q12H 09/29/24 09/29/24 History acetaminophen 500 mg tablet 500 mg PO Q6H PRN pain 09/30/24 09/30/24 History (Acetaminophen Extra Strength) Allergies Allergy/AdvReac Type Severity Reaction Status Date / Time azithromycin (From Zithromax Allergy Mild Hives Verified 06/18/23 23:25 Z-Rk) cetirizine (From Zyrtec) Allergy Mild Hypertensio Verified 06/18/23 23:25 n ciprofloxacin (From Cipro) Allergy Mild Abdominal Verified 06/18/23 23:25 Pain Sulfa (Sulfonamide Allergy Mild Abdominal Verified 06/18/23 23:25 Antibiotics) Pain sulfamethoxazole (From Allergy Mild Nausea Verified 06/18/23 23:25 Bactrim) trimethoprim (From Bactrim) Allergy Mild Nausea Verified 06/18/23 23:25 Penicillins Allergy Hives Verified 06/18/23 23:25 morphine AdvReac Severe Palpitation Verified 06/18/23 23:25 s Exam Constitutional Vital Signs, click to edit/add: Last Vital Signs Temp 97.7 F 09/30/24 06:00 Pulse 89 09/30/24 07:58 Resp 16 09/30/24 06:00 BP 120/73 09/30/24 06:05 Pulse Ox 98 09/30/24 06:00 O2 Del Method Room Air 09/30/24 06:00 O2 Flow Rate 2 09/30/24 05:19 Documenting provider has reviewed patient's vital signs: yes Common normals: no apparent distress, average body habitus, oriented x3, healthy appearing, alert and well nourished General appearance: cooperative, comfortable, well kempt and well developed GI Common normals: Normal to inspection, nondistended, normoactive bowel sounds present, soft to palpation, non-tender, no hepatosplenomegaly and no masses Inspection: normal to inspection Palpation: soft Neuro Common normals: oriented x3, CN's II-XII intact bilaterally, moves all extremities, no focal motor deficits and no sensory deficits noted Results Labs Labs: Abnormal lab results 09/29/24 09/29/24 09/29/24 Range/Units 19:30 20:50 23:17 WBC 15.0 H (4.0-11.0) 10^3/uL RBC 2.90 L (4.20-5.40) 10^6/uL Hgb 8.8 L (12.0-16.0) g/dL Hct 27.2 L (36.0-48.0) % MPV (9.5-13.5) fL Neut # (Auto) 9.5 H (1.4-6.5) 10^3/uL Lymph # (Auto) 4.3 H (1.2-3.8) 10^3/uL Caldwell # (Auto) 0.9 H (0.3-0.8) 10^3/uL Abs Immat Gran (auto) 0.04 H (0.00-0.03) 10^3/uL Chloride (98-107) mmol/L BUN 46.0 H (7.0-18.0) mg/dL Glucose 141 H (74-106) mg/dL Lactate 2.1 H (0.4-2.0) mmol/L Calcium (8.5-10.1) mg/dL Magnesium (1.8-2.4) mg/dL AST 12 L (15-37) U/L Total Protein 6.1 L (6.4-8.2) g/dL Albumin 3.0 L (3.4-5.0) g/dL Urine Nitrite (NEGATIVE) Stool Occult Blood Positive A POC Glucose 132 H (74-106) mg/dL 09/30/24 Range/Units 06:15 WBC (4.0-11.0) 10^3/uL RBC 2.52 L (4.20-5.40) 10^6/uL Hgb 7.6 L (12.0-16.0) g/dL Hct 23.6 L* (36.0-48.0) % MPV 9.3 L (9.5-13.5) fL Neut # (Auto) (1.4-6.5) 10^3/uL Lymph # (Auto) (1.2-3.8) 10^3/uL Caldwell # (Auto) (0.3-0.8) 10^3/uL Abs Immat Gran (auto) (0.00-0.03) 10^3/uL Chloride 109 H (98-107) mmol/L BUN 36.0 H (7.0-18.0) mg/dL Glucose (74-106) mg/dL Lactate (0.4-2.0) mmol/L Calcium 8.3 L (8.5-10.1) mg/dL Magnesium 1.5 L (1.8-2.4) mg/dL AST (15-37) U/L Total Protein (6.4-8.2) g/dL Albumin (3.4-5.0) g/dL Urine Nitrite Positive A (NEGATIVE) Stool Occult Blood POC Glucose (74-106) mg/dL Diabetes panel 09/29/24 09/30/24 Range/Units 19:30 06:15 Sodium 140 145 (136-145) mmol/L Potassium 4.0 4.1 (3.5-5.1) mmol/L Chloride 104 109 H (98-107) mmol/L Carbon Dioxide 26.0 24.7 (21.0-32.0) mmol/L BUN 46.0 H 36.0 H (7.0-18.0) mg/dL Creatinine 0.86 0.91 (0.55-1.02) mg/dL Glucose 141 H 102 (74-106) mg/dL Calcium 9.3 8.3 L (8.5-10.1) mg/dL AST 12 L (15-37) U/L ALT 19 (14-59) U/L Alkaline Phosphatase 73 (46-116) U/L Total Protein 6.1 L (6.4-8.2) g/dL Albumin 3.0 L (3.4-5.0) g/dL Calcium panel 09/29/24 09/30/24 Range/Units 19:30 06:15 Calcium 9.3 8.3 L (8.5-10.1) mg/dL Albumin 3.0 L (3.4-5.0) g/dL Pituitary panel 09/29/24 09/30/24 Range/Units 19:30 06:15 Sodium 140 145 (136-145) mmol/L Potassium 4.0 4.1 (3.5-5.1) mmol/L Chloride 104 109 H (98-107) mmol/L Carbon Dioxide 26.0 24.7 (21.0-32.0) mmol/L BUN 46.0 H 36.0 H (7.0-18.0) mg/dL Creatinine 0.86 0.91 (0.55-1.02) mg/dL Glucose 141 H 102 (74-106) mg/dL Calcium 9.3 8.3 L (8.5-10.1) mg/dL Adrenal panel 09/29/24 09/30/24 Range/Units 19:30 06:15 Sodium 140 145 (136-145) mmol/L Potassium 4.0 4.1 (3.5-5.1) mmol/L Chloride 104 109 H (98-107) mmol/L Carbon Dioxide 26.0 24.7 (21.0-32.0) mmol/L BUN 46.0 H 36.0 H (7.0-18.0) mg/dL Creatinine 0.86 0.91 (0.55-1.02) mg/dL Glucose 141 H 102 (74-106) mg/dL Calcium 9.3 8.3 L (8.5-10.1) mg/dL Total Bilirubin 0.5 (0.2-1.0) mg/dL AST 12 L (15-37) U/L ALT 19 (14-59) U/L Alkaline Phosphatase 73 (46-116) U/L Total Protein 6.1 L (6.4-8.2) g/dL Albumin 3.0 L (3.4-5.0) g/dL All other labs normal. Assessment and Plan Assessment and Plan (1) Acute upper GI bleed: (2) Low back pain: (3) Degenerative arthritis of cervical spine: (4) Sleep apnea: (5) Thyroid disease: (6) Heart attack: (7) Arthritis: (8) COPD (chronic obstructive pulmonary disease): (9) HTN (hypertension): (10) Diabetes 1.5, managed as type 2: (11) History of cholecystectomy: (12) Family history of colon cancer: Plan EGD with possible biopsy. Risks benefits and alternatives to endoscopy may include perforation or bleeding. She understood all the above and wished to proceed. If the EGD is negative then I would recommend that patient proceed with an outpatient colonoscopy at a later date as long as clinically stable since she has a family history of colon cancer in her sister and she cannot remember when her last colonoscopy was performed and she is anemic to rule out colon cancer. There are no signs of active bleeding. She is hemodynamically stable. She did have Hemoccult positive stools.
[2024-09-30] MEDS: 0.9 % SODIUM CHLORIDE 1,000 ML 100 ML IV ×2 (08:09→15:16)
--- NOTE | 2024-09-30 08:22 | P.GSPRC_ITS ---
Date of procedure: 09/30/24 Indications for Procedure: Hematemesis/Hemoccult positive stool/anemia/acute upper GI bleed Pre-op diagnosis: Hematemesis/Hemoccult positive stool/anemia/acute upper GI bleed Post-op diagnosis: other (Gastric ulcer linear x 3 cardia of stomach, medium sized hiatal hernia, esophageal ulcers GE junction) Procedure: EGD with biopsy cardia of stomach, GE junction ulcers Findings: GE junction ulcers, medium sized hiatal hernia, gastric ulcers of cardia of stomach linear x 3 without active bleeding Anesthesia: MAC Surgeon: Oscar Villatoro Procedure Summary: Patient was taken to the endoscopy suite placed in the left lateral recumbent position and given sedation by the leak operator paraffin plant. The Olympus EGD scope was advanced under direct visualization into the posterior pharynx esophagus into the stomach through the pylorus into the first second third and fourth portions of the duodenum. No ulcers polyps or tumors were seen in the duodenum but in the cardia of the stomach when the scope was retroflexed she had 3 linear gastric ulcers for which biopsies were taken and hemostasis maintained. There was no active bleeding and no old blood in the stomach. The scope was then withdrawn to the esophagus where she was found to have a medium sized hiatal hernia and at the GE junction she had superficial ulcers which were biopsied as well and hemostasis was maintained. The rest of the esophagus was normal. The scope was then withdrawn from the mouth. Recommendation would be to discontinue the aspirin and meloxicam for short period of time and allow healing to take place. She may need to be off of all nonsteroidal anti-inflammatory drugs permanently since she has already been on Protonix and Carafate. I would recommend she have outpatient colonoscopy in the future due to anemia and family history of colon cancer if so desired. Estimated blood loss (mL): 1 Specimens: Antral biopsies Complications: No Condition: stable Disposition: PACU
[2024-09-30] MEDS: ramipriL 5 MG CAPSULE 10 MG PO (09:58)
[2024-09-30] MEDS: AMLODIPINE BESYLATE 5 MG TABLET 2.5 MG PO (09:58)
[2024-09-30] MEDS: FERROUS SULFATE 325 MG TABLET PO ×2 (09:59→20:43)
[2024-09-30] MEDS: ATORVASTATIN CALCIUM 10 MG TABLET PO (09:59)
[2024-09-30] MEDS: PANTOPRAZOLE SODIUM 40 MG VIAL IV ×2 (09:59→20:43)
[2024-09-30] MEDS: FLUTICASONE PROPIONATE 50 MCG NASAL SPRAY 2 SPRAY NS (09:59)
[2024-09-30] MEDS: CETIRIZINE HCL 10 MG TABLET PO (09:59)
[2024-09-30] MEDS: CEFTRIAXONE 1,000 MG in 0.9 % SODIUM CHLORIDE 50 ML 100 MG IV (10:00)
[2024-09-30] MEDS: CLINDAMYCIN PHOSPHATE/D5W 600 MG/50 ML PREMIX 100 MG IV ×3 (10:00→20:09)
[2024-09-30] MEDS: ACETAMINOPHEN 500 MG TABLET 1000 MG PO (10:02)
--- NOTE | 2024-09-30 10:39 | P.HP_ITS ---
HPI H&P: HPI History of Present Illness Chief complaint: upper gi bleed Narrative: Patient scented to emergency room with hematemesis. Some conflicting information, in ER was documented she has had multiple melena stools, emesis with black emesis as well. Patient have significant anemia in the emergency room. Repeat CBC shows deterioration. When I saw patient up on the medical surgical floor it was after her EGD, she was resting comfortably bed, still feels very fatigued. Still feels like she is significantly pale compared to her baseline. Patient also with cough and some shortness of breath. X-ray consistent with pneumonia, likely aspiration secondary to hyperemesis Opioid HPI Opioid Management Most Recent Pain and Opioid Data: Last Pain Scale 0 09/30/24 12:05 09/30/24 Last Pain Assessment 09/30/24 12:05 Last MAR Pain Assessment 09/30/24 10:02 Last ORT Total Score 0 09/29/24 23:12 09/29/24 Last ORT Risk Category Low Risk 09/29/24 23:12 09/29/24 Review of Systems ROS Constitutional Reports: fever Eyes Denies: change in vision PFSH [facility] Medical History (Updated 09/30/24 @ 08:15 by Oscar Villatoro MD) On home oxygen therapy ?Z99.81 - Dependence on supplemental oxygen (ICD-10) Sleep apnea ?G47.30 - Sleep apnea, unspecified (ICD-10) Thyroid disease ?E07.9 - Disorder of thyroid, unspecified (ICD-10) Heart attack ?I21.9 - Acute myocardial infarction, unspecified (ICD-10) Arthritis ?M19.90 - Unspecified osteoarthritis, unspecified site (ICD-10) COPD (chronic obstructive pulmonary disease) ?J44.9 - Chronic obstructive pulmonary disease, unspecified (ICD-10) Elevated cholesterol ?E78.00 - Pure hypercholesterolemia, unspecified (ICD-10) HTN (hypertension) ?I10 - Essential (primary) hypertension (ICD-10) Diabetes 1.5, managed as type 2 ?E13.9 - Other specified diabetes mellitus without complications (ICD-10) Surgical History History of cholecystectomy ?Z90.49 - Acquired absence of other specified parts of digestive tract (ICD- 10) Family History Father Family history of CHF (congestive heart failure) Sister Family history of cancer Mother Family history of myocardial infarction Other Family history of diabetes mellitus Family history of hypertension Social History Smoking status: Never smoker Highest level of school completed/degree received: high school graduate Little interest or pleasure in doing things: not at all Feeling down, depressed, or hopeless: not at all Meds Home Medications and Allergies Home Medications ?Medication ?Instructions ?Recorded ?Confirmed ?Type albuterol sulfate 90 mcg/actuation 2 puff inhalation DAILY PRN 01/01/24 09/29/24 History aerosol inhaler shortness of breath or wheezing amlodipine 2.5 mg tablet 2.5 mg PO DAILY 01/01/24 09/29/24 History aspirin 81 mg tablet,delayed 81 mg PO DAILY 01/01/24 09/29/24 History release (Adult Aspirin Regimen) atorvastatin 10 mg tablet 10 mg PO DAILY 01/01/24 09/29/24 History benzonatate 100 mg capsule 100 mg PO TID PRN cough 01/01/24 09/29/24 History fluticasone 250 mcg-salmeterol 50 1 inh inhalation Q12H 01/01/24 09/29/24 History mcg/dose blistr powdr for inhalation levothyroxine 100 mcg tablet 100 mcg PO DAILY 01/01/24 09/29/24 History (Synthroid) loratadine 10 mg tablet 10 mg PO DAILY 01/01/24 09/29/24 History meloxicam 7.5 mg tablet 7.5 mg PO DAILY PRN pain #10 tabs 01/01/24 09/29/24 Rx metformin 500 mg tablet 500 mg PO DAILY 01/01/24 09/29/24 History mometasone 50 mcg/actuation nasal 2 spray intranasal DAILY 01/01/24 09/29/24 History spray pantoprazole 40 mg tablet,delayed 40 mg PO DAILY 01/01/24 09/29/24 History release ramipril 10 mg capsule 10 mg PO DAILY 01/01/24 09/29/24 History albuterol 90 mcg/actuation aerosol 90 mcg inhalation QID 09/29/24 09/29/24 History inhaler biotin 10,000 mcg disintegrating 10,000 mcg PO DAILY 09/29/24 09/29/24 History tablet ferrous sulfate 325 mg (65 mg 325 mg PO BID 09/29/24 09/29/24 History iron) tablet (Destinee-Time) fluticasone propionate 50 2 spray intranasal DAILY 09/29/24 09/29/24 History mcg/actuation nasal spray,suspension neomycin-polymyxin B-dexameth eye 1 drp ophthalmic (eye) TID 09/29/24 09/29/24 History drops,suspension ondansetron HCl 4 mg tablet 4 mg PO Q8H 09/29/24 09/29/24 History sucralfate 1 gram tablet 1 g PO Q6H 09/29/24 09/29/24 History tirzepatide 2.5 mg/0.5 mL 2.5 mg subcut QWEEK 09/29/24 09/29/24 History subcutaneous pen injector (Mounjaro) tizanidine 2 mg tablet 2 mg PO Q12H 09/29/24 09/29/24 History acetaminophen 500 mg tablet 500 mg PO Q6H PRN pain 09/30/24 09/30/24 History (Acetaminophen Extra Strength) Allergies Allergy/AdvReac Type Severity Reaction Status Date / Time azithromycin (From Zithromax Allergy Mild Hives Verified 06/18/23 23:25 Z-Rk) cetirizine (From Zyrtec) Allergy Mild Hypertensio Verified 06/18/23 23:25 n ciprofloxacin (From Cipro) Allergy Mild Abdominal Verified 06/18/23 23:25 Pain Sulfa (Sulfonamide Allergy Mild Abdominal Verified 06/18/23 23:25 Antibiotics) Pain sulfamethoxazole (From Allergy Mild Nausea Verified 06/18/23 23:25 Bactrim) trimethoprim (From Bactrim) Allergy Mild Nausea Verified 06/18/23 23:25 Penicillins Allergy Hives Verified 06/18/23 23:25 morphine AdvReac Severe Palpitation Verified 06/18/23 23:25 s Exam Constitutional Vital Signs, click to edit/add: Last Vital Signs Temp 98.1 F 09/30/24 09:25 Pulse 83 09/30/24 10:00 Resp 16 09/30/24 09:25 BP 131/72 09/30/24 09:25 Pulse Ox 95 09/30/24 09:25 O2 Del Method Room Air 09/30/24 09:25 O2 Flow Rate 96 09/30/24 08:09 Documenting provider has reviewed patient's vital signs: yes Common normals: no apparent distress Chest Common normals: inspection of chest normal Respiratory Common normals: normal respiratory effort, no retractions and clear to auscultation bilaterally (Patient just received breathing treatment) Cardio Common normals: regular rate and regular rhythm GI Common normals: Normal to inspection, nondistended, normoactive bowel sounds present and soft to palpation; tender Palpation: tender Details: epigastric Results Labs Labs: Short CBC 09/29/24 09/30/24 Range/Units 19:30 06:15 WBC 15.0 H 9.2 (4.0-11.0) 10^3/uL Hgb 8.8 L 7.6 L (12.0-16.0) g/dL Hct 27.2 L 23.6 L* (36.0-48.0) % Plt Count 255 217 (150-450) 10^3/uL BMP 09/29/24 09/30/24 19:30 06:15 Sodium 140 145 Potassium 4.0 4.1 Chloride 104 109 H Carbon Dioxide 26.0 24.7 BUN 46.0 H 36.0 H Creatinine 0.86 0.91 Glucose 141 H 102 Calcium 9.3 8.3 L Liver Function 09/29/24 Range/Units 19:30 Total Bilirubin 0.5 (0.2-1.0) mg/dL AST 12 L (15-37) U/L ALT 19 (14-59) U/L Alkaline Phosphatase 73 (46-116) U/L Albumin 3.0 L (3.4-5.0) g/dL Urine 09/30/24 Range/Units 06:15 Urine Color Lt. yellow (YELLOW) Urine Clarity Clear (CLEAR) Urine pH 6.0 (5.0-9.0) Ur Specific [place] 1.010 (1.005-1.025) Urine Protein Negative (NEG/TRACE) mg/dL Urine Glucose (UA) Negative (NEGATIVE) mg/dL Assessment and Plan Assessment and Plan (1) Acute upper GI bleed: (2) Low back pain: (3) Degenerative arthritis of cervical spine: (4) Sleep apnea: (5) Thyroid disease: (6) Heart attack: (7) Arthritis: (8) COPD (chronic obstructive pulmonary disease): (9) HTN (hypertension): (10) Diabetes 1.5, managed as type 2: (11) History of cholecystectomy: (12) Family history of colon cancer: Plan Admission findings: Sinus tachycardia, fever, labile hypertension, leukocytosis, acute anemia secondary to acute upper gastrointestinal blood loss anemia complicated by acute left lower lobe pneumonia and a positive urinalysis resulting in sepsis. Sepsis(leukocytosis, fever, hypotension, infectious source of pneumonia and UTI) secondary to left lower lobe pneumonia likely secondary to aspiration with hyperemesis-IV antibiotics, pulm cultures pending Acute upper gastrointestinal blood loss anemia secondary to acute upper gastrointestinal bleeding secondary to acute gastric ulcers as documented on EGD. Type cross and transfuse 1 unit. Repeat CBC posttransfusion. Leukocytosis secondary to above-monitor daily Elevated BUN consistent with and gastrointestinal bleeding-monitor daily NIDDM-insulin sliding scale Hypomagnesemia-supplement Hypercholesterolemia-continue with home medications Generalized arthritis-hold off on NSAIDs. Coronary artery disease-we will hold off on aspirin for now but will likely discharge patient to home on that. GERD-on IV Protonix, restart Carafate Lumbar radiculopathy-continue with tizanidine Admission status: Patient initially placed in observation status, with bleeding persisting decreasing hemoglobin and need for transfusion as well as now with fever and sepsis consistent with pneumonia directly due to aspiration, medically necessary treatment will span 2 midnights. Inpatient status.
[2024-09-30] MEDS: BUDESONIDE 0.5 MG/2 ML AMPULE NEB IH ×2 (11:06→22:33)
[2024-09-30 11:23] LABS: Glucometer 146 mg/dL (74-106)
[2024-09-30] MEDS: MAGNESIUM OXIDE 400 MG TABLET PO ×2 (12:20→20:43)
[2024-09-30] MEDS: INSULIN ASPART 300 UNIT/3 ML PEN SUBQ (12:21)
[2024-09-30] MEDS: NEOMYCIN/POLYMYXIN B/DEXAMETHA OP SUSP 100 DROP/5 ML BOTTLE EYE-BOTH ×2 (15:12→21:07)
[2024-09-30] MEDS: SUCRALFATE 1 GM TABLET PO ×2 (15:13→20:09)
[2024-09-30 15:26] LABS: Glucometer 94 mg/dL (74-106)
[2024-09-30 16:29] LABS: Basophils Percent Auto 0.5 % (0.2-2.0); Eosinophils Absolute Auto 0.2 10^3/uL (0.0-0.7); Eosinophils Percent Auto 2.6 % (0.9-7.0); Hemoglobin 7.9 g/dL (12.0-16.0); Immature Granulocytes Abs Auto 0.02 10^3/uL (0.00-0.03); Immature Granulocytes Pct Auto 0.3 % (0.0-0.5); Lymphocytes Absolute Auto 2.4 10^3/uL (1.2-3.8); Lymphocytes Percent Auto 31.8 % (20.5-60.0); Mean Corpuscular HGB Conc 33.3 g/dL (29.9-35.2); Mean Corpuscular Hemoglobin 31.1 pg (26.7-34.0); Mean Corpuscular Volume 93.3 fL (81.0-99.0); Mean Platelet Volume 9.4 fL (9.5-13.5); Monocytes Absolute Auto 0.4 10^3/uL (0.3-0.8); Monocytes Percent Auto 5.8 % (1.7-12.0); Neutrophils Absolute Auto 4.4 10^3/uL (1.4-6.5); Platelet Count 170 10^3/uL (150-450); Red Blood Count 2.54 10^6/uL (4.20-5.40); Red Cell Distribution Width 14.1 % (11.0-15.0); White Blood Count 7.4 10^3/uL (4.0-11.0)
[2024-09-30 16:43] LABS: Hematocrit 23.7 % (36.0-48.0)
[2024-09-30 19:41] LABS: Glucometer 117 mg/dL (74-106)
[2024-09-30] MEDS: TIZANIDINE HCL 4 MG TABLET 2 MG PO (20:43)
[2024-09-30 23:41] LABS: Hemoglobin 7.9 g/dL (12.0-16.0); Mean Corpuscular HGB Conc 33.1 g/dL (29.9-35.2); Mean Corpuscular Hemoglobin 30.5 pg (26.7-34.0); Mean Corpuscular Volume 92.3 fL (81.0-99.0); Mean Platelet Volume 9.7 fL (9.5-13.5); Platelet Count 176 10^3/uL (150-450); Red Blood Count 2.59 10^6/uL (4.20-5.40); Red Cell Distribution Width 14.4 % (11.0-15.0); White Blood Count 7.6 10^3/uL (4.0-11.0)
[2024-09-30 23:45] LABS: Hematocrit 23.9 % (36.0-48.0)
[2024-10-01] VITALS (10 sets, daily range): BP systolic 100–135; BP diastolic 60–73; PULSE 69–79; TEMP 36.6–36.8; O2SAT 91–100
[2024-10-01] MEDS: SUCRALFATE 1 GM TABLET PO ×3 (02:55→15:36)
[2024-10-01] MEDS: CLINDAMYCIN PHOSPHATE/D5W 600 MG/50 ML PREMIX 100 MG IV ×2 (02:55→09:20)
[2024-10-01] MEDS: LEVOTHYROXINE SODIUM 100 MCG TABLET PO (06:52)
[2024-10-01] MEDS: NEOMYCIN/POLYMYXIN B/DEXAMETHA OP SUSP 100 DROP/5 ML BOTTLE EYE-BOTH (06:52)
[2024-10-01 07:57] LABS: Basophils Percent Auto 0.6 % (0.2-2.0); Eosinophils Absolute Auto 0.3 10^3/uL (0.0-0.7); Eosinophils Percent Auto 4.3 % (0.9-7.0); Hematocrit 25.5 % (36.0-48.0); Hemoglobin 8.4 g/dL (12.0-16.0); Immature Granulocytes Abs Auto 0.02 10^3/uL (0.00-0.03); Immature Granulocytes Pct Auto 0.3 % (0.0-0.5); Lymphocytes Absolute Auto 2.3 10^3/uL (1.2-3.8); Lymphocytes Percent Auto 36.2 % (20.5-60.0); Mean Corpuscular HGB Conc 32.9 g/dL (29.9-35.2); Mean Corpuscular Volume 94.1 fL (81.0-99.0); Mean Platelet Volume 9.4 fL (9.5-13.5); Monocytes Absolute Auto 0.4 10^3/uL (0.3-0.8); Monocytes Percent Auto 6.1 % (1.7-12.0); Neutrophils Absolute Auto 3.3 10^3/uL (1.4-6.5); Neutrophils Percent Auto 52.5 % (43.0-75.0); Platelet Count 174 10^3/uL (150-450); Red Blood Count 2.71 10^6/uL (4.20-5.40); Red Cell Distribution Width 14.6 % (11.0-15.0); White Blood Count 6.4 10^3/uL (4.0-11.0)
[2024-10-01 07:57] LABS: Glucometer 95 mg/dL (74-106)
[2024-10-01 08:08] LABS: Alanine Aminotransferase 20 U/L (14-59); Albumin Level 2.8 g/dL (3.4-5.0); Alkaline Phosphatase 60 U/L (46-116); Anion Gap 12.5; Aspartate Amino Transferase 18 U/L (15-37); Bilirubin Total 0.5 mg/dL (0.2-1.0); Calcium 8.2 mg/dL (8.5-10.1); Carbon Dioxide 27.4 mmol/L (21.0-32.0); Chloride 110 mmol/L (98-107); Estimated GFR (African America >60 (>=60 mL/min/1.73m^2); Estimated GFR (Non-African Ame >60 (>=60 mL/min/1.73m^2); Globulin 2.7 g/dL; Glucose 91 mg/dL (74-106); Potassium 3.9 mmol/L (3.5-5.1); Sodium 146 mmol/L (136-145); Total Protein 5.5 g/dL (6.4-8.2)
[2024-10-01] MEDS: FLUTICASONE PROPIONATE 50 MCG NASAL SPRAY 2 SPRAY NS (09:17)
[2024-10-01] MEDS: METFORMIN HCL 500 MG TABLET PO (09:18)
[2024-10-01] MEDS: AMLODIPINE BESYLATE 5 MG TABLET 2.5 MG PO (09:18)
[2024-10-01] MEDS: CETIRIZINE HCL 10 MG TABLET PO (09:19)
[2024-10-01] MEDS: ATORVASTATIN CALCIUM 10 MG TABLET PO (09:19)
[2024-10-01] MEDS: FERROUS SULFATE 325 MG TABLET PO (09:19)
[2024-10-01] MEDS: ramipriL 5 MG CAPSULE 10 MG PO (09:19)
[2024-10-01] MEDS: MAGNESIUM OXIDE 400 MG TABLET PO (09:19)
[2024-10-01] MEDS: PANTOPRAZOLE SODIUM 40 MG VIAL IV (09:20)
[2024-10-01 10:56] LABS: Glucometer 96 mg/dL (74-106)
[2024-10-01] MEDS: CEFTRIAXONE 1,000 MG in 0.9 % SODIUM CHLORIDE 50 ML 100 MG IV (11:03)
--- NOTE | 2024-10-01 11:34 | P.DS_ITS ---
DS: Providers Provider Date of admission: 09/29/24 23:03 Primary care physician: MATT SHEIKH Consults: 09/30/24 07:51 Occupational Therapy Eval and Treat Routine Reason for consultation: Only if needed for Rehab Has provider been notified: No Physical Therapy Eval and Treat Routine Reason for consultation: Eval and Treat Has provider been notified: No DS: Diagnosis Discharge Diagnosis (1) Acute upper GI bleed: (2) Low back pain: (3) Degenerative arthritis of cervical spine: (4) Sleep apnea: (5) Thyroid disease: (6) Heart attack: (7) Arthritis: (8) COPD (chronic obstructive pulmonary disease): (9) HTN (hypertension): (10) Diabetes 1.5, managed as type 2: (11) History of cholecystectomy: (12) Family history of colon cancer: Plan Admission findings: Sinus tachycardia, fever, labile hypertension, leukocytosis, acute anemia secondary to acute upper gastrointestinal blood loss anemia complicated by acute left lower lobe pneumonia and a positive urinalysis resulting in sepsis. Sepsis(leukocytosis, fever, hypotension, infectious source of pneumonia and UTI) secondary to left lower lobe pneumonia likely secondary to aspiration with hyperemesis-IV antibiotics, pulm cultures pending Acute upper gastrointestinal blood loss anemia secondary to acute upper gastrointestinal bleeding secondary to acute gastric ulcers as documented on EGD. Hemoglobin stable at the time of discharge Leukocytosis secondary to above-stable at the time of discharge Elevated BUN consistent with and gastrointestinal bleeding-stable at the time of discharge NIDDM-insulin sliding scale Hypomagnesemia-supplement Hypercholesterolemia-continue with home medications Generalized arthritis-hold off on NSAIDs. Coronary artery disease-we will hold off on aspirin for now but will likely discharge patient to home on that. GERD-on IV Protonix, restart Carafate Lumbar radiculopathy-continue with tizanidine Admission status: Patient initially placed in observation status, with bleeding persisting decreasing hemoglobin and need for transfusion as well as now with fever and sepsis consistent with pneumonia directly due to aspiration, medically necessary treatment will span 2 midnights. Inpatient status. ? DS: Summary Hospital Course Hospital Course: Patient was seen and evaluated in the emergency room secondary to hematemesis and melena. Sounds like she gave her a family member gave more detailed information to the emergency room and she was admitting up on the medical surgical floor. She was taken for endoscopy. Found to have several nonbleeding ulcers. Patient's hemoglobin did drop less than 8, she was typed crossed and transfused were just 1 unit. Her hemoglobin is improved today. She is able to eat well this morning. Patient also had significant fever and chest x-ray consistent with pneumonia. She was started on IV antibiotics. Her cough is improved today. With improvement in her cough, no further fevers, white blood cell count returned to normal, hemoglobin actually improved from previous day s he will be discharged home in improving condition. Medications see list. Follow-up with PCP this week. Patient ministered and status was inpatient. She was initially started off as an observational patient with EGD, with the elevation in her fever, pneumonia on chest x-ray, she failed the treatment in the initial observational time. She was made inpatient status and maintained that throughout the rest of the hospitalization Status at Discharge Overall status at discharge: patient is not back to baseline Time Spent with Patient Time attestation: Total time spent providing and/or coordinating discharge services: Time spent: greater than 30 minutes Exam Constitutional Vital Signs, click to edit/add: Last Vital Signs Temp 98.0 F 10/01/24 08:00 Pulse 77 10/01/24 08:00 Resp 16 10/01/24 08:00 BP 100/60 10/01/24 08:00 Pulse Ox 94 L 10/01/24 08:00 O2 Del Method Room Air 10/01/24 08:00 O2 Flow Rate 2 09/30/24 23:33 Documenting provider has reviewed patient's vital signs: yes Common normals: no apparent distress (Seems fatigued) Chest Common normals: inspection of chest normal Respiratory Common normals: normal respiratory effort and no retractions Auscultation: rhonchi (Resolved from previous day) Cardio Common normals: regular rate and regular rhythm GI Common normals: Normal to inspection, nondistended, normoactive bowel sounds present and soft to palpation; tender Palpation: tender (Less tender than previous day) Details: epigastric DS: Data Data Completed and Pending Labs on day of discharge: Labs from last 24 hours 10/01/24 10/01/24 10/01/24 10:55 07:56 07:50 WBC 6.4 RBC 2.71 L Hgb 8.4 L Hct 25.5 L MCV 94.1 MCH 31.0 MCHC 32.9 RDW 14.6 Plt Count 174 MPV 9.4 L Neut % (Auto) 52.5 Lymph % (Auto) 36.2 [place]ran % (Auto) 6.1 Eos % (Auto) 4.3 Baso % (Auto) 0.6 Neut # (Auto) 3.3 Lymph # (Auto) 2.3 [place]chran # (Auto) 0.4 Eos # (Auto) 0.3 Baso # (Auto) 0.0 Abs Immat Gran (auto) 0.02 Imm/Tot Granulo (auto) 0.3 Sodium 146 H Potassium 3.9 Chloride 110 H Carbon Dioxide 27.4 Anion Gap 12.5 BUN 15.0 Creatinine 0.88 Est GFR ( Amer) >60 Est GFR (Non-Af Amer) >60 BUN/Creatinine Ratio 17.0 Glucose 91 Calcium 8.2 L Total Bilirubin 0.5 AST 18 ALT 20 Alkaline Phosphatase 60 Total Protein 5.5 L Albumin 2.8 L Globulin 2.7 Albumin/Globulin Ratio 1.0 POC Glucose 96 95 Blood Type Antibody Screen Crossmatch 09/30/24 09/30/24 09/30/24 23:22 19:39 16:07 WBC 7.6 7.4 RBC 2.59 L 2.54 L Hgb 7.9 L 7.9 L Hct 23.9 L* 23.7 L* MCV 92.3 93.3 MCH 30.5 31.1 MCHC 33.1 33.3 RDW 14.4 14.1 Plt Count 176 170 MPV 9.7 9.4 L Neut % (Auto) 59.0 Lymph % (Auto) 31.8 [place] % (Auto) 5.8 Eos % (Auto) 2.6 Baso % (Auto) 0.5 Neut # (Auto) 4.4 Lymph # (Auto) 2.4 [place]ran # (Auto) 0.4 Eos # (Auto) 0.2 Baso # (Auto) 0.0 Abs Immat Gran (auto) 0.02 Imm/Tot Granulo (auto) 0.3 Sodium Potassium Chloride Carbon Dioxide Anion Gap BUN Creatinine Est GFR ( Amer) Est GFR (Non-Af Amer) BUN/Creatinine Ratio Glucose Calcium Total Bilirubin AST ALT Alkaline Phosphatase Total Protein Albumin Globulin Albumin/Globulin Ratio POC Glucose 117 H Blood Type Antibody Screen Crossmatch 09/30/24 09/30/24 15:15 08:09 WBC RBC Hgb Hct MCV MCH MCHC RDW Plt Count MPV Neut % (Auto) Lymph % (Auto) [place] % (Auto) Eos % (Auto) Baso % (Auto) Neut # (Auto) Lymph # (Auto) [place] # (Auto) Eos # (Auto) Baso # (Auto) Abs Immat Gran (auto) Imm/Tot Granulo (auto) Sodium Potassium Chloride Carbon Dioxide Anion Gap BUN Creatinine Est GFR ( Amer) Est GFR (Non-Af Amer) BUN/Creatinine Ratio Glucose Calcium Total Bilirubin AST ALT Alkaline Phosphatase Total Protein Albumin Globulin Albumin/Globulin Ratio POC Glucose 94 Blood Type O Positive Antibody Screen Negative Crossmatch See Detail Discharge Plan Discharge Disposition: Home, Self-Care Condition: Good Discharge Medications: New magnesium oxide 400 mg (241.3 mg magnesium) Tablet 400 mg PO BID Qty: 60 11RF cefdinir 300 mg capsule 600 mg PO DAILY Qty: 20 0RF Continued amlodipine 2.5 mg tablet 2.5 mg PO DAILY aspirin [Adult Aspirin Regimen] 81 mg tablet,delayed release (DR/EC) 81 mg PO DAILY atorvastatin 10 mg tablet 10 mg PO DAILY benzonatate 100 mg capsule 100 mg PO TID PRN (Reason: cough) levothyroxine [Synthroid] 100 mcg tablet 100 mcg PO DAILY loratadine 10 mg tablet 10 mg PO DAILY fluticasone propion-salmeterol 250-50 mcg/dose blister with device 1 inh INHALATION Q12H metformin 500 mg tablet 500 mg PO DAILY pantoprazole 40 mg tablet,delayed release (DR/EC) 40 mg PO DAILY ramipril 10 mg capsule 10 mg PO DAILY albuterol sulfate 90 mcg/actuation HFA aerosol inhaler 2 puff INHALATION DAILY PRN (Reason: shortness of breath or wheezing) mometasone 50 mcg/actuation spray,non-aerosol 2 spray INTRANASAL DAILY biotin 10,000 mcg tablet,disintegrating 10,000 mcg PO DAILY ferrous sulfate [Destinee-Time] 325 mg (65 mg iron) tablet 325 mg PO BID fluticasone propionate 50 mcg/actuation spray,suspension 2 spray INTRANASAL DAILY Mounjaro 2.5 mg/0.5 mL pen injector 2.5 mg subcut QWEEK Rx Instructions: for 4 weeks sucralfate 1 gram tablet 1 g PO Q6H tizanidine 2 mg tablet 2 mg PO Q12H ondansetron HCl 4 mg tablet 4 mg PO Q8H neomycin-polymyxin B-dexameth Drops,Suspension 1 drp ophthalmic (eye) TID albuterol 90 mcg/actuation aerosol 90 mcg inhalation QID Rx Instructions: 2 puffs acetaminophen [Acetaminophen Extra Strength] 500 mg tablet 500 mg PO Q6H PRN (Reason: pain) Discontinued meloxicam 7.5 mg tablet 7.5 mg PO DAILY PRN (Reason: pain ) Qty: 10 0RF Print Language: [place] Patient Instructions: Cefdinir (By mouth), Magnesium (By mouth), Anemia (DC), Capsule Endoscopy (DC) Forms: Portal Instructions Follow Up Appointments: Make a f/u appointment with Dr. Villatoro in 1 week, he is located at [address] [place] [address]. Phone number [phone], a colonoscopy needs scheduled for outpatient. Make a f/u appointment with your PCP as well. Discharge Date/Time: 10/01/24 15:44 Discharge location: [facility] surg
[2024-10-01 11:41] LABS: H Pylori Tissue, Urease Negative
--- OUTSIDE RECORDS SUMMARY | 2024-10-02 13:56 | XMS_ITS | CCD ---
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 Name Role Phone Smith Sheikh Primary Care Provider [phone] Unavailable Unavailable Smith Sheikh MD Primary Care Provi israel Smith Sheikh MD Primary Care Provider Ava Salvador Unavailable Adilia Buck Unavailable Smith Sheikh MD Primary Care Provider Smith Sheikh MD Primary Care Provi israel Alexandre Frazier Attending Unavailable Alexandre Frazier Admitting [facility] UnavailCORBY Sánchez Attending Unavailable CORBY YANEZ Admitting [facility] Unavailable ALEX HUERTA Consulting Unavailable CORBY YANEZ Consulting Unavailable [facility] Primary Care Unavailable LAKSHMIPATHY ., NARENDRANATH Attending Valery vailable LAKSHMIPATHY ., NARENDRANATH Admitting Valery vailable LAKSHMIPATHY ., NARENDRANATH Consulting Valery vailable ARCINIEGA ., DR RONY Reinoso Attending Unavailable [facility] Primary Care Unavailable PAVITHRA .GOGO Consulting Unavailable SUZE ., DR RONY Reinoso Admitting Unavailable LAKSHMIPATHY ., NARENDRANATH Consulting Valery vailable ARCINIEGA ., DR RONY Reinoso Consulting Unavailable [facility] Primary Care Unavailable ARCINIEGA [...] BILL Vivar Consulting Unavailable Courtney Perez Unavailable [facility] Primary Care Unava [...] Referring Unavailable AVA DAMON Attending Unavailable AVA ADMON Referring Unavailable AVA DAMON Attending Unavailable [facility] LAWNAMAN, SMITH GUILLE Primary Care Unava ilable Allergies Allergy Classification Reported Allergen(s) Allergy Type Date of Onset Reaction(s) Facility (20 sources) Cetirizine; Translations: [CETIRIZINE HCL] Drug Allergy 12-20-19 09 [place] [facility] Phone: (20 sources) Ciprofloxacin; Translations: [Ciprofloxacin HCl TABS] Drug Allergy 05-19-20 13 Unknown [facility] [employer] Phone: (20 sources) Morphine; Translations: [morphine] Drug Allergy 12-20-19 09 chest hurting and breathing issues [facility] Phone: (10 sources) Penicillins; Translations: [PENICILLINS] Propensity to adverse reactions to drug 12-20-19 09 [facility] Phone: (20 sources) Sulfamethoxazole / Trimethoprim; Translations: [SULFAMETHOXAZOLE-T RIMETHOPRIM] Drug Allergy 12-20-19 09 Nausea And Vomiting [facility] Phone: (6 sources) traMADol Drug Allergy 02-27-20 21 Other (See Comments) [facility] Phone: (5 sources) Cetirizine; Translations: [Cetirizine HCl TABS] [facility] Phone: (5 sources) Penicillins; Translations: [Penicillins] Allergy to drug (finding) [facility] [employer] DO Work Phone: (9 sources) Sulfamethoxazole / Trimethoprim; Translations: [Bactrim TABS] Drug Allergy stomach pain [facility] [employer] DO Work Phone: (5 sources) Sulfonamides (Antibiotic); Translations: [Sulfa Drugs] Allergy to drug (finding) [facility] [employer] DO Work Phone: (14 sources) Ibuprofen; Translations: [IBUPROFEN] Drug Allergy 12-07-19 18 Unknown [facility] (2 sources) Penicillins Propensity to adverse reactions 12-20-19 09 [facility] (4 sources) Cetirizine Drug Allergy blood pressure elevated [employer] Other (4 sources) Penicillin G Benzathine Drug allergy rash [employer] Other (2 sources) sulfaSALAzine Drug Allergy Unknown [employer] Other (13 sources) Penicillins Propensity to adverse reactions to drug 12-20-19 09 [facility] Phone: (3 sources) Cetirizine; Translations: [CETIRIZINE] Drug Allergy 12-20-19 [facility] Rep[facility] (1 source) Ciprofloxacin Drug Allergy 12-01-19 [facility] (1 source) Morphine Drug Allergy 12-01-19 [facility] (1 source) Penicillins Drug allergy (disorder) 12-01-19 [facility] (1 source) Sulfamethoxazole Drug Allergy 12-01-19 [facility] Repository (2 sources) Sulfonamides (Antibiotic); Translations: [SULFA (SULFONAMIDE ANTIBIOTICS)] Drug allergy (disorder) 12-01-19 [facility] Repository (1 source) Trimethoprim Drug Allergy 12-01-19 [facility] (1 source) Cetirizine Drug Allergy 08-11-20 15 [facility] Repository (1 source) Ciprofloxacin Drug Allergy 08-11-20 15 [facility] (2 sources) Morphine Drug Allergy 05-05-20 15 [facility] (2 sources) Penicillins Drug allergy (disorder) 04-28-20 15 [facility] (2 sources) Sulfamethoxazole / Trimethoprim Drug Allergy 05-05-20 15 [facility] (1 source) Sulfonamides (Antibiotic) Drug allergy (disorder) 08-11-20 15 [facility] (2 sources) Substance with sulfonamide structure and antibacterial mechanism of action (substance) Drug allergy Unknown [facility] Other Medications Current Medications Medication Drug Class(es) Dates Sig (Normalized) Sig (Original) acetaminophen 300 mg / codeine phosphate 30 mg oral tablet (15 sources) Opioid Agonist Start: 09-16-2020 acetaminophen-cod eine (TYLENOL-COD #3) 300-30 mg per tablet 10/13/2020 Active Advair Diskus 250-50 MCG/DOSE (4 sources) take 1 puff(s) by inhalation twice daily Advair Diskus 250-50 MCG/DOSE 1 puff Inhalation Twice a day Active [id number] actuat albuterol 0.09 mg/actuat metered dose [...] Start: 06-17-2023 take 1 capsule by [facility] three times daily as needed for cough Benzonatate 200 MG 1 capsule Orally Three times a day prn cough for 10 days Apr, Not-Taking/PRN biotin 1 mg oral capsule (13 sources) biotin 1 mg cap Take by mouth. Active Biotin 49654 MCG TABS Take by mouth 0 Active Comment on above: Take by mouth. Dwoymfrgq-GO-Xdkpiuesgtn en (CORICIDIN D COLD/FLU/SINUS PO) (2 sources) Sqwxfuqeg-KE-Ljy ta minophen (CORICIDIN D COLD/FLU/SINUS PO) Take [...] 02-Sep-2021 DO Active take 1 capsule by [facility] once daily, then take 10 capsules by mouth once, then take 10 capsules by mouth Coenzyme Q10 (CO Q 10) 10 MG CAPS Take 10 mg by mouth daily 0 Active Comment on above: Take 1 capsule by [facility] once daily. COMP-AIR NEBULIZER COMPRESSOR (3 [...] / neomycin 3.5 mg/ml / polymyxin b 49694 unt/ml ophthalmic suspension (4 sources) Aminoglycoside Antibacterial, Polymyxin-class Antibacterial, Corticosteroid Start: 4 take 1 drop(s) into the eye(s) three times daily NEOMYCIN-POLYMY APOLLO-DEXAMETH 3.5 MG/ML-10,000 UNIT/ML-0.1% EYE DROPS Use 1 Drop in both eyes three times a day. 5 mL 08/29/2024 Active Start: 11-18-2020 Neomycin-Polym yxin-Dexameth 3.5-62246-0.1 Ophthalmic Ointment Quantity: 3 Refills: 0 Ordered: [...] fur oate(NASONEX 50 MCG/ACTUATION SPRAY) MV with Soe-Lyjrdyad-Ueqtop 0.4 mg-300 mcg- 250 mcg tab (7 [...] 01/22/2021 04/22/2021 Active take 1 capsule by [facility] twice daily at mealtime CeleBREX 200 [...] DO Start : 16-Jun-2021 Complete MV with Ztm-Ogolrfoz-Gokpyn (CENTRUM SILVER) 0.4-300-250 mg-mcg-mcg tab (4 sources) MV with Scf-Ntwoiblg-Hperdc (CENTRUM SILVER) 0.4-300-250 mg-mcg-mcg tab Take by [...] Drop ( AK-DILATE, THERESA-SYNEPHRINE) polyethylene glycol 3350 83119 mg powder for oral solution (8 sources) [...] 04-29-2016 04-29-2016 Chronic Other aftercare (1 source) care home (current) use of aspirin; Translations: [AIRPORT REPRESENTATIVE CURRENT USE OF ASPIRIN] Onset: 09-07-2022 Episodic Other aftercare (1 source) Other jail (current) drug therapy; Translations: [OTH SENIOR LIVING CURRENT DRUG THERAPY] Onset: 09-07-2022 Episodic Other aftercare (1 source) long term care social worker (current) use of oral hypoglycemic drugs; Translations: [SENIOR LIVING USE ORAL HYPOGLYCEMIC DX] Onset: 09-07-2022 Episodic Other aftercare (2 sources) Long-term current use of aspirin; Translations: [care home (current) use of aspirin] Onset: 09-07-2022 04-07-2023 Episodic Other aftercare (2 sources) Long-term current use of oral hypoglycemic medication; Translations: [long term care social worker (current) use of oral hypoglycemic drugs] Onset: 09-07-2022 04-07-2023 Episodic Other aftercare (2 sources) Long-term current use of drug therapy; Translations: [Other long term care social worker (current) drug therapy] Onset: 09-07-2022 04-07-2023 Episodic [...] Test Name Value Interpretation Reference Range [facility] PENGMARAH Alvarez ([id number]) 1950 F Date Time Provider Department 09/28/24 AVA DAMON During your visit today, we recorded the following information about you: KirtKrishnaia 09/28/2024 8:58 AM Signed Pt is requesting a new eye drop prescription or another alternative due to the rx that was given being to expensive. Pt states they are 25 dollars and too much. Would like something else. Would like something sent to [facility] in [place] on [address] Astrid Latham 09/28/2024 2:54 PM Signed Called pt and spoke with her she stated the Maxitrol was never picked up because she did not have the money at the time. Now she has money she was wondering if there a cheaper version of the Maxitrol. A lot of discharge. Allergies As of Date: 09/28/2024 Noted Allergy Reaction BACTRIM (SULFAMETHOXAZOLE-TR IMETH*12/20/2008 CIPROFLOXACIN 05/19/2013 16 - Unknown IBUPROFEN 12/07/2017 16 - Unknown MORPHINE 12/20/2008 PENICILLINS 12/20/2008 ZYRTEC (CETIRIZINE HCL) 12/20/2008 Date Reviewed: 08/29/2024 Reviewed by: Ava Damon OD - Fully Assessed Reason for Visit: Medication Problem [65] Prescriptions as of 09/28/2024 - ZHUWZMQH-TOWEVYBKW-R EXAMETH 3.5 MG/ML-10,000 UNIT/ML-0.1% EYE DROPS Use 1 Drop in both eyes three times a day. - olopatadine (PATADAY TWICE DAILY RELIEF) 0.1 % ophthalmic solution Use 1 Drop in both eyes two times a day. - loratadine (CLARITIN) 10 mg tablet Take 1 tablet by mouth every afternoon. - meloxicam (MOBIC) 7.5 mg tablet - COMP-AIR NEBULIZER COMPRESSOR - olopatadine (PATANOL) 0.1 % ophthalmic solution INSTILL ONE DROP TO BOTH EYES TWICE A DAY - Coenzyme Q10 200 mg cap Take 1 capsule by mouth once daily. - acetaminophen-codein e (TYLENOL-COD #3) 300-30 mg per tablet - celecoxib (CELEBREX) 100 mg capsule Take 100 mg by mouth. - celecoxib (CELEBREX) 100 mg capsule - diclofenac potassium (CATAFLAM) 50 mg tablet - amLODIPine (NORVASC) 2.5 mg tablet TAKE 1 TABLET DAILY - aspirin, enteric coated (ASPIRIN, ENTERIC COATED) 81 mg EC tablet Take 81 mg by mouth. - atorvastatin (LIPITOR) 10 mg tablet TAKE 1 TABLET DAILY - fluticasone-salmeter ol (ADVAIR, WIXELA) 250-50 mcg/dose inhaler USE 1 INHALATION TWICE A DAY - levothyroxine (SYNTHROID) 100 mcg tablet 1 tab qd - SYNTHROID 88 mcg tablet - metFORMIN (GLUCOPHAGE) 1,000 mg tablet Take 1,000 mg by mouth. - metFORMIN (GLUCOPHAGE) 500 mg tablet TAKE 2 TABLETS EVERY MORNING AND TAKE 1 TABLET EVERY EVENING - ramipril (ALTACE) 10 mg capsule TAKE 1 CAPSULE DAILY - ramipril (ALTACE) 10 mg capsule - traMADol (ULTRAM) 50 mg tablet Take 50 mg by mouth. - acetaminophen (TYLENOL ORAL) Take 650 mg by mouth as needed. - sucralfate (CARAFATE) 1 gram tablet Take 1 g by mouth four times daily. - albuterol sulfate (PROAIR DIGIHALER) 90 mcg/actuation aebs Inhale as instructed. - pantoprazole DR (PROTONIX) 40 mg tablet Take 40 mg by mouth once daily. - ipratropium-albutero l (DUONEB) 0.5 mg-3 mg(2.5 mg base)/3 mL nebu Inhale 3 mL as instructed every 4 hours. - furosemide (LASIX) 20 mg tablet Take 20 mg by mouth once daily. - MV with Obu-Agxgzdpq-Bnzviq 0.4 mg-300 mcg- 250 mcg tab Take by mouth. - amLODIPine (NORVASC) 2.5 mg tablet Take 2.5 mg by mouth once daily. - atorvastatin (LIPITOR) 10 mg tablet Take 10 mg by mouth once daily. - esomeprazole (NEXIUM) 40 mg capsule Take 40 mg by mouth DAILY (6 AM). - BABY ASPIRIN ORAL Take by mouth. - biotin 1 mg cap Take by mouth. - fexofenadine (DELMI) 180 mg tablet Take 180 mg by mouth once daily. - cyanocobalamin, vitamin B-12, (B-12 DOTS ORAL) Take by mouth. - levothyroxine (SYNTHROID) 100 mcg tablet Take 1 tablet by mouth once daily. - rosuvastatin (CRESTOR) 20 mg tablet Take 1 tablet by mouth daily at bedtime. - ramipril(ALTACE 10 MG TAB) Take by mouth. - metformin hcl(GLUCOPHAGE 500 MG TAB) Take by mouth. - tramadol hcl(ULTRAM 50 MG TAB) Take by mouth. - fluticasone/salmeter ol(ADVAIR DISKUS 250 MCG-50 MCG/DOSE FOR INHALATION) - mometasone furoate(NASONEX 50 MCG/ACTUATION SPRAY) - desloratadine(CLARIN EX 5 MG TAB) Take by mouth. Meds Comments as of 11/18/2020: 11-18-20 Pt brought med list however it does not seem to be accurate. Jose Luis, 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 Encounter Status:Closed by ASTRID LATHAM on 09/28/24 Normal [facility] CBC AND AUTO DIFFon 06-13-20 ABSOLUTE BASOPHIL 0.0 X10E9/L Normal 0.0-0.2 [facility] Comment on above: Performed By: #### C BCA, 53072-4, CMP, 56702-7, 34014-2 #### [facility] ([id number]) [address] [place] [address], [place] [address] ABSOLUTE NEUTROPHIL 7.1 X10E9/L High 1.5-6.6 [facility] Comment on above: Performed By: #### Siria RAMIREZ, 49290-1, CMP, 64984-6, 04486-5 #### [facility] ([id number]) [address] [place] [address] 11517 Basophils/100 WBC (Bld) 0.2 % Normal [facility] Comment on above: Performed By: #### Siria RAMIREZ, 93173-9, CMP, 50465-1, 29742-1 #### [facility] ([id number]) [address] [place] [address] 23613 Eosinophils (Bld) [#/Vol] 0.0 10*3/uL Normal 0.0-0.4 [facility] Comment on above: Performed By: #### Siria RAMIREZ, 60576-9, CMP, 70451-3, 12754-9 #### [facility] ([id number]) [address] [place] [address] 46321 Eosinophils/100 WBC (Bld) 0.0 % Normal [facility] Comment on above: Performed By: #### Siria RAMIREZ, 68831-0, CMP, 84094-7, 89170-8 #### [facility] ([id number]) [address] [place] [address] 53385 Erythrocyte distribution width (RBC) [Ratio] 16.0 % High 11.5-15.0 [facility] Comment on above: Performed By: #### Siria RAMIREZ, 16186-2, CMP, 67173-9, 00714-3 #### [facility] ([id number]) [address] [place] [address] 57943 Hematocrit (Bld) [Volume fraction] 30.8 % Low 35-47 [facility] Comment on above: Performed By: #### Siria RAMIREZ, 06818-0, CMP, 25510-4, 45441-0 #### [facility] ([id number]) [address] [place] [address] 73900 Hemoglobin (Bld) [Mass/Vol] 10.3 g/dL Low 11.7-15.5 [facility] Comment on above: Performed By: #### C JAMES, 38670-5, CMP, 48873-9, 90071-1 #### [facility] ([id number]) [address] [place] [address] 65627 Lymphocytes (Bld) [#/Vol] 1.0 10*3/uL Normal 1.0-3.5 [facility] Comment on above: Performed By: #### C JAMES, 12886-1, CMP, 69200-6, 77490-3 #### [facility] ([id number]) [address] [place] [address] 73227 Lymphocytes/100 WBC (Bld) 12.1 % Normal [facility] Comment on above: Performed By: #### Siria RAMIREZ, 53783-1, CMP, 22869-4, 27790-9 #### [facility] ([id number]) [address] [place] [address] 29006 MCH (RBC) [Entitic mass] 29.9 pg Normal 27-34 [facility] Comment on above: Performed By: #### Siria RAMIREZ, 75355-5, CMP, 65499-2, 67359-2 #### [facility] ([id number]) [address] [place] [address] 37706 MCHC (RBC) [Mass/Vol] 33.4 g/dL Normal 32-36 [facility] Comment on above: Performed By: #### Siria RAMIREZ, 25366-7, CMP, 38543-5, 83299-4 #### [facility] ([id number]) [address] [place] [address] 65713 MCV (RBC) [Entitic vol] 90 fL Normal 80-100 [facility] Comment on above: Performed By: #### Siria BCA, 36860-9, CMP, 47099-6, 03489-9 #### [facility] ([id number]) [address] [place] [address] 16700 Monocytes (Bld) [#/Vol] 0.4 10*3/uL Normal 0-0.9 [facility] Comment on above: Performed By: #### Siria BCA, 66467-0, CMP, 83345-2, 09685-8 #### [facility] ([id number]) [address] [place] [address] 70644 Monocytes/100 WBC (Bld) 4.8 % Normal [facility] Comment on above: Performed By: #### Siria RAMIREZ, 97022-7, CMP, 49234-1, 65320-1 #### [facility] ([id number]) [address] [place] [address] 41626 Neutrophils/100 WBC (Bld) 82.9 % Normal [facility] Comment on above: Performed By: #### Siria BCA, 17420-4, CMP, 17327-8, 39026-6 #### [facility] ([id number]) [address] [place] [address] 21402 Platelet mean volume (Bld) [Entitic vol] 8.0 fL Normal 7-12 [facility] Comment on above: Performed By: #### Siria BCA, 04353-1, CMP, 40922-0, 48208-2 #### [facility] ([id number]) [address] [place] [address] 90703 Platelets (Bld) [#/Vol] 200 10*3/uL Normal 150-450 [facility] Comment on above: Performed By: #### Siria BCA, 87392-0, CMP, 46961-6, 77054-9 #### [facility] ([id number]) [address] [place] [address] 97409 RBC COUNT 3.43 X10E12/L Low 3.80-5.20 [facility] Comment on above: Performed By: #### C BCA, 48723-8, CMP, 89992-8, 02509-9 #### [facility] ([id number]) [address] [place] [address] 84532 WBC (Bld) [#/Vol] 8.5 10*3/uL Normal 4.0-11.0 [facility] Comment on above: Performed By: #### C BCA, 79270-7, CMP, 91761-2, 74291-1 #### [facility] ([id number]) [address] [place] [address] 92545 COMPREHENSIVE METABOLIC PANE Schuyler 06-13-2024 Albumin [Mass/Vol] 3.4 g/dL Normal 3.2-5.3 [facility] Comment on above: Performed By: #### C BCA, 96894-5, CMP, 22393-7, 02289-7 #### [facility] ([id number]) [address] [place] [address] 01418 ALP [Catalytic activity/Vol] 69 U/L Normal 39-130 [facility] Comment on above: Performed By: #### C BCA, 76750-7, CMP, 36538-6, 07787-6 #### [facility] ([id number]) [address] [place] [address] 09151 ALT [Catalytic activity/Vol] 34 U/L High 0-31 [facility] Comment on above: Performed By: #### C BCA, 77261-4, CMP, 50955-9, 91908-6 #### [facility] ([id number]) [address] [place] [address] 55414 Anion gap [Moles/Vol] 8 mmol/L Normal 5-15 [facility] Comment on above: Performed By: #### C BCA, 90163-9, CMP, 07176-7, 06380-4 #### [facility] ([id number]) [address] [place] [address] 24266 AST [Catalytic activity/Vol] 31 U/L Normal 0-41 [facility] Comment on above: Performed By: #### C BCA, 64989-2, CMP, 45117-5, 93862-2 #### [facility] ([id number]) [address] [place] [address] 76096 Bilirubin [Mass/Vol] 0.3 mg/dL Normal 0.3-1.2 [facility] Comment on above: Performed By: #### C BCA, 88226-3, CMP, 64650-3, 20287-6 #### [facility] ([id number]) [address] [place] [address] 67716 Calcium [Mass/Vol] 8.5 mg/dL Normal 8.5-10.5 [facility] Comment on above: Performed By: #### C BCA, 36907-6, CMP, 76770-1, 33011-9 #### [facility] ([id number]) [address] [place] [address] 94501 Chloride [Moles/Vol] 107 mmol/L Normal 98-109 [facility] Comment on above: Performed By: #### C BCA, 38804-3, CMP, 30240-0, 22517-2 #### [facility] ([id number]) [address] [place] [address] 78407 CO2 [Moles/Vol] 21 mmol/L Low 22-32 [facility] Comment on above: Performed By: #### C BCA, 73467-5, CMP, 33224-2, 54858-6 #### [facility] ([id number]) [address] [place] [address] 57302 Creatinine [Mass/Vol] 0.62 mg/dL Normal 0.40-1.00 [facility] Comment on above: Result Comment: METH OD TRACEABLE TO IDMS STANDARD Performed By: #### C BCA, 43255-3, CMP, 99740-5, 62569-8 #### [facility] ([id number]) [address] [place] [address] 58128 eGFR (CKD-EPI) NON-RACE DEPENDENT >90 Normal >59 [facility] Comment on above: Result Comment: Reported eGFR is based on the CKD-EPI 2020 equation that does not use a race coefficient. Performed By: #### C BCA, 22402-9, CMP, 60496-4, 43584-2 #### [facility] ([id number]) [address] [place] [address] 47996 Glucose [Mass/Vol] 159 mg/dL High 65-99 [facility] Comment on above: Performed By: #### C BCA, 34881-8, CMP, 09568-6, 72654-7 #### [facility] ([id number]) [address] [place] [address] 63426 Potassium [Moles/Vol] 3.8 mmol/L Normal 3.5-5.0 [facility] Comment on above: Performed By: #### C BCA, 50061-6, CMP, 50198-8, 13371-7 #### [facility] ([id number]) [address] [place] [address] 51378 Protein [Mass/Vol] 6.3 g/dL Normal 6.0-8.0 [facility] Comment on above: Performed By: #### C BCA, 51026-9, CMP, 12504-9, 87672-1 #### [facility] ([id number]) [address] [place] [address] 10006 Sodium [Moles/Vol] 136 mmol/L Normal 134-146 [facility] Comment on above: Performed By: #### C JAMES, 49530-7, CMP, 61194-5, 05872-7 #### [facility] ([id number]) [address] [place] [address] 05447 Urea nitrogen [Mass/Vol] 17 mg/dL Normal 5-27 [facility] Comment on above: Performed By: #### C JAMES, 53563-6, [facility], 68532-7, 17390-7 #### [facility] ([id number]) [address] [place] [address] 67701 Glucose Glucometer (BldC) [M ass/Vol]on 06-13-2024 Glucose [Mass/Vol] 233 mg/dL High 65-99 [facility] Glucose [Mass/Vol] 268 mg/dL High 65-99 [facility] Glucose [Mass/Vol] 153 mg/dL High 65-99 [facility] Glucose [Mass/Vol] 276 mg/dL High 65-99 [facility] MAGNESIUMon 06-13-2024 Magnesium [Mass/Vol] 1.5 mg/dL Low 1.8-2.6 [facility] Comment on above: Performed By: #### C JAMES, 16083-1, [facility], 90072-1, 60508-6 #### [facility] ([id number]) [address] [place] [address] 89916 Troponin I.cardiac High sens itivity method [Mass/Vol]on 06-13-2024 3 HOUR TROP I, HIGH SENSITIVITY 100 ng/L High <16 [facility] Comment on above: Result Comment: Elevations of hs-Troponin may be due to causes other than myocardial ischemia. Recommend serial hs-Troponin testing be performed. For the initial evaluation and management of chest pain patients, refer to the algorithms linked below. Emergency Patient: [email or web address] Inpatient: [email or web address] Performed By: #### C BCA, 56965-8, CMP, 41185-8, 92878-2 #### [facility] [facility] ([id number]) [address] [place] [address] 06138 1 HOUR TROP I, HIGH SENSITIVITY 116 ng/L High <16 [facility] Comment on above: Result Comment: Elevations of hs-Troponin may be due to causes other than myocardial ischemia. Recommend serial hs-Troponin testing be performed. For the initial evaluation and management of chest pain patients, refer to the algorithms linked below. Emergency Patient: [email or web address] Inpatient: [email or web address] Performed By: #### C BCA, 06934-0, CMP, 90143-0, 37874-1 #### [facility] ([id number]) [address] [place] [address] 41631 TROPONIN I, HIGH SENSITIVITY 116 ng/L High <16 [facility] Comment on above: Result Comment: Elevations of hs-Troponin may be due to causes other than myocardial ischemia. Recommend serial hs-Troponin testing be performed. For the initial evaluation and management of chest pain patients, refer to the algorithms linked below. Emergency Patient: [email or web address] Inpatient: [email or web address] uh=[email or web address] Performed By: #### C BCA, 54809-1, CMP, 48787-0, 24323-6 #### [facility] ([id number]) [address] [place] [address] 94820 Beta hydroxybutyrate [Moles/ Vol]on 06-12-2024 BetaHydroxybutyrate 0.20 mmol/L Normal 0.02-0.27 [facility] Comment on above: Performed By: #### 6 873-4, 55713-3, 35960-1 #### [facility] ([id number]) [address] [place] [address] 35873 CBC AND AUTO DIFFon 06-12-20 ABSOLUTE BASOPHIL 0.0 X10E9/L Normal 0.0-0.2 [facility] Comment on above: Performed By: #### C BCA, 53268-3, CMP, 82742-1, 30382-1 #### [facility] ([id number]) [address] [place] [address] 43081 ABSOLUTE NEUTROPHIL 5.7 X10E9/L Normal 1.5-6.6 [facility] Comment on above: Performed By: #### C BCA, 25625-2, CMP, 91448-6, 87849-2 #### [facility] ([id number]) [address] [place] [address] 05593 Basophils/100 WBC (Bld) 0.1 % Normal [facility] Comment on above: Performed By: #### Siria BCA, 73454-1, CMP, 84352-0, 79295-4 #### [facility] ([id number]) [address] [place] [address] 65491 Eosinophils (Bld) [#/Vol] 0.0 10*3/uL Normal 0.0-0.4 [facility] Comment on above: Performed By: #### C BCA, 00720-8, CMP, 31641-4, 14915-9 #### [facility] ([id number]) [address] [place] [address] 05185 Eosinophils/100 WBC (Bld) 0.0 % Normal [facility] Comment on above: Performed By: #### C JAMES, 20769-7, CMP, 27288-9, 28612-0 #### [facility] ([id number]) [address] [place] [address] 19520 Erythrocyte distribution width (RBC) [Ratio] 16.2 % High 11.5-15.0 [facility] Comment on above: Performed By: #### Siria RAMIREZ, 12716-8, CMP, 92905-2, 28624-4 #### [facility] ([id number]) [address] [place] [address] 74287 Hematocrit (Bld) [Volume fraction] 32.5 % Low 35-47 [facility] Comment on above: Performed By: #### Siria RAMIREZ, 92248-0, CMP, 48944-6, 70952-8 #### [facility] ([id number]) [address] [place] [address] 23116 Hemoglobin (Bld) [Mass/Vol] 10.7 g/dL Low 11.7-15.5 [facility] Comment on above: Performed By: #### Siria RAMIREZ, 09895-2, CMP, 93610-2, 83994-9 #### [facility] ([id number]) [address] [place] [address] 40179 Lymphocytes (Bld) [#/Vol] 0.6 10*3/uL Low 1.0-3.5 [facility] Comment on above: Performed By: #### Siria RAMIREZ, 20575-3, CMP, 35448-3, 38681-7 #### [facility] ([id number]) [address] [place] [address] 57323 Lymphocytes/100 WBC (Bld) 8.7 % Normal [facility] Comment on above: Performed By: #### Siria RAMIREZ, 57876-4, CMP, 94994-0, 91118-8 #### [facility] ([id number]) [address] [place] [address] 03546 MCH (RBC) [Entitic mass] 29.6 pg Normal 27-34 [facility] Comment on above: Performed By: #### Siria RAMIREZ, 48586-0, CMP, 55748-6, 27454-3 #### [facility] ([id number]) [address] [place] [address] 82256 MCHC (RBC) [Mass/Vol] 32.9 g/dL Normal 32-36 [facility] Comment on above: Performed By: #### Siria RAMIREZ, 90124-0, CMP, 77389-9, 47411-2 #### [facility] ([id number]) [address] [place] [address] 99812 MCV (RBC) [Entitic vol] 90 fL Normal 80-100 [facility] Comment on above: Performed By: #### Siria RAMIREZ, 24591-0, CMP, 43658-8, 52262-1 #### [facility] ([id number]) [address] [place] [address] 15175 Monocytes (Bld) [#/Vol] 0.2 10*3/uL Normal 0-0.9 [facility] Comment on above: Performed By: #### Siria RAMIREZ, 85982-9, CMP, 93811-3, 77574-4 #### [facility] ([id number]) [address] [place] [address] 81152 Monocytes/100 WBC (Bld) 3.3 % Normal [facility] Comment on above: Performed By: #### Siria BCA, 57114-1, CMP, 13412-9, 36795-1 #### [facility] ([id number]) [address] [place] [address] 90220 Neutrophils/100 WBC (Bld) 87.9 % Normal [facility] Comment on above: Performed By: #### C BCA, 82581-0, CMP, 87928-0, 23657-3 #### [facility] ([id number]) [address] [place] [address] 77508 Platelet mean volume (Bld) [Entitic vol] 7.7 fL Normal 7-12 [facility] Comment on above: Performed By: #### Siria BCA, 23959-9, CMP, 67450-2, 38089-9 #### [facility] ([id number]) [address] [place] [address] 22052 Platelets (Bld) [#/Vol] 212 10*3/uL Normal 150-450 [facility] Comment on above: Performed By: #### Siria BCA, 23636-1, CMP, 02629-3, 10715-3 #### [facility] ([id number]) [address] [place] [address] 67303 RBC COUNT 3.62 X10E12/L Low 3.80-5.20 [facility] Comment on above: Performed By: #### Siria BCA, 38358-8, CMP, 66025-3, 26345-3 #### [facility] ([id number]) [address] [place] [address] 15985 WBC (Bld) [#/Vol] 6.4 10*3/uL Normal 4.0-11.0 [facility] Comment on above: Performed By: #### Siria BCA, 57465-3, CMP, 66794-8, 55940-9 #### [facility] ([id number]) [address] [place] [address] 44273 COMPREHENSIVE METABOLIC PANE Schuyler 06-12-2024 Albumin [Mass/Vol] 3.8 g/dL Normal 3.2-5.3 [facility] Comment on above: Performed By: #### Siria BCA, 07762-3, CMP, 55740-4, 43714-9 #### [facility] ([id number]) [address] [place] [address] 23960 ALP [Catalytic activity/Vol] 78 U/L Normal 39-130 [facility] Comment on above: Performed By: #### C BCA, 32276-8, CMP, 68225-4, 82322-6 #### [facility] ([id number]) [address] [place] [address] 30067 ALT [Catalytic activity/Vol] 30 U/L Normal 0-31 [facility] Comment on above: Performed By: #### C BCA, 61287-2, CMP, 01821-0, 74461-2 #### [facility] ([id number]) [address] [place] [address] 16001 Anion gap [Moles/Vol] 16 mmol/L High 5-15 [facility] Comment on above: Performed By: #### C BCA, 49252-2, CMP, 27019-2, 27363-6 #### [facility] ([id number]) [address] [place] [address] 52312 AST [Catalytic activity/Vol] 31 U/L Normal 0-41 [facility] Comment on above: Performed By: #### C BCA, 14535-5, CMP, 63178-8, 49549-8 #### [facility] ([id number]) [address] [place] [address] 68101 Bilirubin [Mass/Vol] 0.2 mg/dL Low 0.3-1.2 [facility] Comment on above: Performed By: #### C BCA, 70010-8, CMP, 03992-9, 64148-8 #### [facility] ([id number]) [address] [place] [address] 29569 Calcium [Mass/Vol] 9.0 mg/dL Normal 8.5-10.5 [facility] Comment on above: Performed By: #### C BCA, 14310-7, CMP, 14710-5, 37746-2 #### [facility] ([id number]) [address] [place] [address] 36438 Chloride [Moles/Vol] 103 mmol/L Normal 98-109 [facility] Comment on above: Performed By: #### C BCA, 38534-7, CMP, 56311-8, 21619-6 #### [facility] ([id number]) [address] [place] [address] 91034 CO2 [Moles/Vol] 15 mmol/L Low 22-32 [facility] Comment on above: Performed By: #### C BCA, 98886-8, CMP, 91387-2, 94176-6 #### [facility] ([id number]) [address] [place] [address] 42772 Creatinine [Mass/Vol] 0.92 mg/dL Normal 0.40-1.00 [facility] Comment on above: Result Comment: METH OD TRACEABLE TO IDMS STANDARD Performed By: #### C BCA, 02950-8, CMP, 36701-3, 36085-0 #### [facility] ([id number]) [address] [place] [address] 92882 GFR/1.73 sq M.predicted among non-blacks MDRD (S/P/Bld) [Vol rate/Area] 65 mL/min/{1.73_m2} Normal >59 [facility] Comment on above: Result Comment: Reported eGFR is based on the CKD-EPI 2020 equation that does not use a race coefficient. Performed By: #### C BCA, 34503-4, CMP, 89293-1, 07380-0 #### [facility] ([id number]) [address] [place] [address] 38127 Glucose [Mass/Vol] 362 mg/dL High 65-99 [facility] Comment on above: Performed By: #### C BCA, 72860-8, CMP, 93403-3, 32629-7 #### [facility] ([id number]) [address] [place] [address] 79521 Potassium [Moles/Vol] 3.7 mmol/L Normal 3.5-5.0 [facility] Comment on above: Performed By: #### C BCA, 12778-6, CMP, 33375-7, 14708-8 #### [facility] ([id number]) [address] [place] [address] 47595 Protein [Mass/Vol] 6.9 g/dL Normal 6.0-8.0 [facility] Comment on above: Performed By: #### Siria RAMIREZ, 29454-0, CMP, 79823-7, 96280-2 #### [facility] ([id number]) [address] [place] [address] 73316 Sodium [Moles/Vol] 134 mmol/L Normal 134-146 [facility] Comment on above: Performed By: #### Siria RAMIREZ, 50587-9, CMP, 91901-7, 05990-5 #### [facility] ([id number]) [address] [place] [address] 70810 Urea nitrogen [Mass/Vol] 22 mg/dL Normal 5-27 [facility] Comment on above: Performed By: #### Siria BCA, 31250-0, CMP, 35704-2, 51468-5 #### [facility] ([id number]) [address] [place] [address] 55195 Fibrin D-dimer DDU (PPP) [Ma ss/Vol]on 06-12-2024 D DIMER <150 Normal <255 [facility] Comment on above: Result Comment: Results <255 ng/mL DDU: The presence of a VTE can safely be excluded with a negative D-Dimer result and Wells score. A negative result doesn't exclude the possibility of DIC. The test be repeated along with other diagnostic tests if the patient's symptoms persist or worsen. [email or web address] Performed By: #### C JAMES, 50508-1, CMP, 28791-7, 64299-3 #### [facility] ([id number]) [address] [place] [address] 34531 Glucose Glucometer (BldC) [M ass/Vol]on 06-12-2024 Glucose [Mass/Vol] 327 mg/dL High 65-99 [facility] Natriuretic peptide B [Mass/ Vol]on 06-12-2024 Natriuretic peptide B (Bld) [Mass/Vol] 71 pg/mL Normal <100.0 [facility] Comment on above: Performed By: #### C JAMES, 51856-5, [facility], 34163-6, 19484-0 #### [facility] ([id number]) [address] [place] [address] 00767 Procalcitonin IA [Mass/Vol]o n 06-12-2024 PROCALCITONIN 0.05 ng/mL High <0.05 [facility] Comment on above: Result Comment: NOTE <0.50 ng/mL - Low risk of severe sepsis and/or septic shock. <2.00 ng/mL - Recommend retesting within 6-24 hours. >2.00 ng/mL - High risk of sepsis and/or septic shock. Performed By: #### 6 873-4, 67620-7, 77157-7 #### [facility] ([id number]) [address] [place] [address] 39154 Troponin I.cardiac High sens itivity method [Mass/Vol]on 06-12-2024 1 HOUR TROP I, HIGH SENSITIVITY 10 ng/L Normal <16 [facility] Comment on above: Performed By: #### 6 873-4, 97199-3, 23427-5 #### [facility] ([id number]) [address] [place] [address] 41343 TROPONIN I, HIGH SENSITIVITY 7 ng/L Normal <16 [facility] Comment on above: Performed By: #### C BCA, 89229-1, CMP, 68526-7, 61493-0 #### [facility] ([id number]) [address] [place] [address] 59247 VENOUS BLOOD GASon 4 GALI'S TEST Normal [facility] Comment on above: Performed By: #### V BG #### [facility] ([id number]) [address] [place] [address] 71659 BASE,DEFICIT 9.0 MMOL/L High 0.0-2.0 [facility] Comment on above: Performed By: #### V BG #### [facility] ([id number]) [address] [place] [address] 44300 Body temperature 98.6 [degF] Normal 37.0 [facility] Comment on above: Performed By: #### V BG #### [facility] ([id number]) [address] [place] [address] 20203 HCO3 (Bld) [Moles/Vol] 16.0 mmol/L Low 20.0-24.0 P [facility] Comment on above: Performed By: #### V BG #### [facility] ([id number]) [address] [place] [address] 86755 Oxygen saturation in Blood 60.0 % Low >80.0 [facility] Comment on above: Performed By: #### V BG #### [facility] ([id number]) [address] [place] [address] 37106 OXYGEN SOURCE [employer] Normal [facility] Comment on above: Performed By: #### V BG #### [facility] ([id number]) [address] [place] [address] 78726 PCO2, VENOUS 30.0 MMHG Low 35-50 [facility] Comment on above: Performed By: #### V BG #### [facility] ([id number]) [address] [place] [address] 71588 PH, VENOUS 7.334 Normal 7.320-7.420 [facility] Comment on above: Performed By: #### V BG #### [facility] ([id number]) [address] [place] [address] 41249 PO2, VENOUS 33 MMHG Normal 30-50 [facility] Comment on above: Performed By: #### V BG #### [facility] ([id number]) [address] [place] [address] [place] [address] SAMPLE SITE N/A Normal [facility] Comment on above: Performed By: #### V BG #### [facility] ([id number]) [address] [place] [address] [place] [address] SAMPLE TYPE VENOUS Normal [facility] Comment on above: Performed By: #### V BG #### [facility] ([id number]) [address] [place] [address] 74299 FLUORO FOR SURGICAL PROCEDUR ESon 03-22-2024 FLUORO FOR SURGICAL PROCEDURES Radiology result is complete; follow up with provider / physician office for radiology results Final result Normal [facility] Glucose,Whole Bloodon 2023 Glucose [Mass/Vol] 95 mg/dL Normal 65-105 [facility] FLUORO FOR SURGICAL PROCEDUR ESon 02-02-2024 FLUORO FOR SURGICAL PROCEDURES Radiology result is complete; follow up with provider / physician office for radiology results Final result Normal [facility] Glucose,Whole Bloodon 2023 Glucose [Mass/Vol] 88 mg/dL Normal 65-105 [facility] POC Glucose Fingerstickon Glucose [Mass/Vol] 88 mg/dL 65 - 105 mg/dL [facility] COVID + FLU Quick Testingon 12-28-2023 SARS-CoV-2 (COVID-19) RNA JAYY+probe Ql (Unsp spec) Negative [employer] Other COVID + FLU Quick Testing Negative [employer] Other FLUORO FOR SURGICAL PROCEDUR ESon 11-08-2023 FLUORO FOR SURGICAL PROCEDURES Radiology result is complete; follow up with provider / physician office for radiology results Final result Normal [facility] No Panel Informationon 05-14 [facility] XR LUMBAR 3V AP/LAT/L5-S1on 05-14-2023 XR LUMBAR [...] severe lumbar spine degenerative change as described. Retail Warehouse Associate: JENNIFER Transcribe Date/Time: May 14 2023 1:53P Dictated by : GABRIELA SANDERSON MD This examination was interpreted and the report reviewed and electronically signed by: GABRIELA SANDERSON MD on May 14 2023 1:54PM EST [id number] CN [facility] XR PELVIS 1V APon 05-14-2023 XR [...] bony erosions. IMPRESSION: Degenerative changes as described. Retail Warehouse Associate: JENNIFER Transcribe Date/Time: May 14 2023 1:52P Dictated by : GABRIELA SANDERSON MD This examination was interpreted and the report reviewed and electronically signed by: GABRIELA SANDERSON MD on May 14 2023 1:53PM EST [id number] [facility] C-REACTIVE PROTEIN (CRP)on 0 03-27-2023 CRP [Mass/Vol] <0.9 mg/dL [facility] ESR Westergren method (Bld) [Velocity]on 03-27-2023 ESR (Bld) [Velocity] 8 mm/h 0 - 20 mm/hr Cl [facility] POINT OF CARE GLUCOSEon 04-0 Glucose [Mass/Vol] 133 mg/dL Critically high 74-106 T [facility] Comment on above: Performed By: #### P OCGLUC #### [facility] [address] [place] [address] Dr. Kris Castillo CBC with Auto Differentialon 12-02-2022 Absolute Eos # 0.[address] [facility] Absolute Lymph # 2.[address] [facility] Absolute [place] # 0.30 [facility] Basophils (Bld) [#/Vol] 0.00 10*3/uL [facility] Basophils/100 WBC (Bld) 1 % 0 - 2 % [facility] Eosinophils/100 WBC (Bld) 3 % 0 - 4 % [facility] Hematocrit (Bld) [Volume fraction] 33.7 % Low 36 - 46 % [facility] Hemoglobin (Bld) [Mass/Vol] 11.3 g/dL Low 12.0 - 16.0 g/dL [facility] Interpretation and review of laboratory results Abnormal [facility] Lymphocytes/100 WBC (Bld) 36 % 24 - 44 % [facility] MCH (RBC) [Entitic mass] 29.2 pg 26 - 34 pg [facility] MCHC (RBC) [Mass/Vol] 33.5 g/dL 31 - 37 g/dL B [facility] MCV (RBC) [Entitic vol] 87.1 fL 80 - 100 fL [facility] Monocytes/100 WBC (Bld) 6 % 1 - 7 % [facility] Platelet distribution width (Bld) [Ratio] 15.9 % High 11.5 - 14.9 % [facility] Platelet mean volume (Bld) [Entitic vol] 7.5 fL 6.0 - 12.0 fL [facility] Platelets (Bld) [#/Vol] 255 10*3/uL [facility] RBC (Bld) [#/Vol] 3.87 10*6/uL Low 4.0 - 5.2 m/uL [facility] Segmented neutrophils/100 WBC (Bld) 54 % 36 - 66 % [facility] Segs Absolute 3.00 [facility] WBC (Bld) [#/Vol] 5.7 10*3/uL [facility] Comprehensive Metabolic Pane schuyler 12-02-2022 Albumin [Mass/Vol] 3.8 g/dL 3.5 - 5.2 g/dL [facility] ALP (Bld) [Catalytic activity/Vol] 79 U/L 35 - 104 U/L [facility] ALT [Catalytic activity/Vol] 14 U/L 5 - 33 U/L [facility] Anion gap [Moles/Vol] 10 mmol/L 9 - 17 mmol/L [facility] AST [Catalytic activity/Vol] 18 U/L NINF - 32 U/L [facility] Bilirubin [Mass/Vol] 0.5 mg/dL 0.3 - 1 .2 mg/dL [facility] Calcium [Mass/Vol] 9.6 mg/dL 8.6 - 10. 4 mg/dL [facility] Chloride [Moles/Vol] 105 mmol/L 98 - 10 7 mmol/L [facility] CO2 [Moles/Vol] 26 mmol/L 20 - 31 mmol/L [facility] Creatinine [Mass/Vol] 0.53 mg/dL 0.50 - 0.90 mg/dL [facility] GFR/1.73 sq M.predicted MDRD (S/P/Bld) [Vol rate/Area] - PINF [facility] Comment on above: Effective Aug 24, 2022 [...] 135 mg/dL High 70 - 99 mg/dL [facility] Interpretation and review of laboratory results Abnormal [facility] Potassium [Moles/Vol] 4.3 mmol/L 3.7 - 5.3 mmol/L [facility] Protein [Mass/Vol] 6.6 g/dL 6.4 - 8.3 g/dL [facility] Sodium [Moles/Vol] 141 mmol/L 135 - 144 mmol/L [facility] Urea nitrogen (BldV) [Mass/Vol] 14 mg/dL 8 - 23 mg/dL [facility] Folateon 12-02-2022 Folate 11 ng/mL 4.8 - PINF ng/mL [facility] Iron and TIBCon 12-02-2022 Iron [Mass/Vol] 81 ug/dL 37 - 145 ug/dL [facility] Iron Saturation 24 % 20 - 55 % [facility] TIBC 338 ug/dL 250 - 450 ug/dL [facility] UIBC 257 ug/dL 112 - 347 ug/dL [facility] Lipaseon 12-02-2022 Lipase [Catalytic activity/Vol] 16 U/L 13 - 60 U/L [facility] No Panel Informationon 12-02 [facility] Reticulocyteson 12-02-2022 Absolute Retic # 0.036 [facility] Retic % 0.9 % 0.5 - 2.0 % [facility] T4, Freeon 12-02-2022 Interpretation and review of laboratory results Abnormal [facility] Thyroxine, Free 1.95 ng/dL High 0.93 - 1.70 ng/dL [facility] TSH With Reflex Ft4on 2022 Interpretation and review of laboratory results Abnormal [facility] TSH Qn 0.08 m[IU]/L Low [facility] Vitamin B12on 12-02-2022 Cobalamin (Vitamin B12) [Mass/Vol] pg/mL High 232 - 1245 pg/mL [facility] Interpretation and review of laboratory results Abnormal [facility] XR WRIST RT MIN 3 [...] by: ALEX HUERTA Date: 2022-09-06 16:27 Normal [facility] LIPID PROFILEon 08-29-2022 CHOL-HDL RATIO NORM SEE BELOW Normal [facility] Comment on above: Result Comment: 3.3 - 4.4 LOW RISK 4.4 - 7.1 AVERAGE RISK 7.1 - 11.0 MODERATE RISK >11.0 HIGH RISK Performed By: #### C MREP #### [facility] [address] [address] [address] Kris Castillo Cholesterol [Mass/Vol] 157 mg/dL Normal <=200 [facility] Comment on above: Performed By: #### C MREP #### [facility] [address] [address] [address] Kris Castillo Cholesterol in HDL [Mass/Vol] 84 mg/dL Critically high 40-60 [facility] Comment on above: Performed By: #### C MREP #### [facility] [address] [address] [address] Kris Castillo Cholesterol in LDL [Mass/Vol] 62.4 mg/dL Normal [facility] Comment on above: Performed By: #### C MREP #### [facility] [address] [address] [address] Kris Castillo Cholesterol.total/Chol esterol in HDL [Mass ratio] 1.9 {ratio} Normal [facility] Comment on above: Performed By: #### C MREP #### [facility] [address] [place] [address] Dr. Kris Castillo HDL NORMAL > or = 60 mg/dl - LOW CARDIOVASCULAR RISK <40 mg/dl - HIGH CARDIOVASCULAR RISK Normal [facility] Comment on above: Performed By: #### C MREP #### [facility] [address] [address] [address] Kris Castillo LDL CALC NORMAL SEE BELOW Normal [facility] Comment on above: Result Comment: <100 mg/dl OPTIMAL 100 - 129 mg/dl NEAR OR ABOVE OPTIMAL 130 - 159 mg/dl BORDERLINE HIGH 160 - 189 mg/dl HIGH >190 mg/dl VERY HIGH Performed By: #### C MREP #### [facility] [address] [address] [address] Kris Castillo Triglyceride [Mass/Vol] 53 mg/dL Normal <=150 [facility] Comment on above: Performed By: #### C MREP #### [facility] [address] [place] [address] Dr. Kris Castillo VLDL CALC 10.6 mg/dL Normal [facility] Comment on above: Performed By: #### C MREP #### [facility] [address] [place] [address] Dr. Kris Castillo CARDIAC ROYA 3-6on 2 CK [Catalytic activity/Vol] 54 U/L Normal 26-192 [facility] Comment on above: Performed By: #### D DIM #### [facility] [address] [place] [address] Dr. Kris Castillo CK.MB [Mass/Vol] 1.12 ng/mL Normal <=3.60 [facility] Comment on above: Performed By: #### D DIM #### [facility] [address] [place] [address] Dr. Kris Castillo HSTROP 8.2 pg/mL Normal 4.0-51.3 [facility] Comment on above: Result Comment: CUT- OFF POINTS HAVE BEEN ESTABLISHED BASED ON THE FOURTH UNIVERSAL DEFINITIONS OF MYOCARDIAL INFARCTION. THE UPPER REFERENCE LIMIT (URL) OF TROPONIN, DEFINED THE 99TH PERCENTILE OF cTnI DISTRIBUTION IN A REFERENCE POPULATION, HAS BEEN CONFIRMED THE DECISION THRESHOLD FOR ME DIAGNOSIS. Performed By: #### D DIM #### [facility] [address] [place] [address] Dr. Kris Castillo CK [Catalytic activity/Vol] 57 U/L Normal 26-192 [facility] Comment on above: Performed By: #### C MREP #### [facility] [address] [place] [address] Dr. Kris Castillo CK.MB [Mass/Vol] 1.25 ng/mL Normal <=3.60 [facility] Comment on above: Performed By: #### C MREP #### [facility] [address] [place] [address] Dr. Kris Castillo HSTROP 7.3 pg/mL Normal 4.0-51.3 [facility] Comment on above: Result Comment: CUT- OFF POINTS HAVE BEEN ESTABLISHED BASED ON THE FOURTH UNIVERSAL DEFINITIONS OF MYOCARDIAL INFARCTION. THE UPPER REFERENCE LIMIT (URL) OF TROPONIN, DEFINED THE 99TH PERCENTILE OF cTnI DISTRIBUTION IN A REFERENCE POPULATION, HAS BEEN CONFIRMED THE DECISION THRESHOLD FOR ME DIAGNOSIS. Performed By: #### C MREP #### [facility] [address] [place] [address] Dr. Kris Castillo CARDIAC ROYA ADMITon 022 CK [Catalytic activity/Vol] 86 U/L Normal 26-192 [facility] Comment on above: Performed By: #### D DIM #### [facility] [address] [place] [address] Dr. Kris Castillo CK.MB [Mass/Vol] 1.65 ng/mL Normal <=3.60 [facility] Comment on above: Performed By: #### D DIM #### [facility] [address] [place] [address] Dr. Kris Castillo HSTROP 6.2 pg/mL Normal 4.0-51.3 [facility] Comment on above: Result Comment: CUT- OFF POINTS HAVE BEEN ESTABLISHED BASED ON THE FOURTH UNIVERSAL DEFINITIONS OF MYOCARDIAL INFARCTION. THE UPPER REFERENCE LIMIT (URL) OF TROPONIN, DEFINED THE 99TH PERCENTILE OF cTnI DISTRIBUTION IN A REFERENCE POPULATION, HAS BEEN CONFIRMED THE DECISION THRESHOLD FOR ME DIAGNOSIS. Performed By: #### D DIM #### [facility] [address] [place] [address] Dr. Kris Castillo RAMSES 34 ng/mL Normal 9-82 [facility] Comment on above: Performed By: #### D DIM #### [facility] [address] [place] [address] Dr. Kris Castillo CBC AUTO DIFFon 08-28-2022 BASO # 0.1 103/ul Normal 0.0-0.1 [facility] Comment on above: Performed By: #### C BC #### [facility] [address] [place] [address] Dr. Kris Castillo Basophils/100 WBC (Bld) 0.6 % Normal 0.2-2.0 [facility] Comment on above: Performed By: #### C BC #### [facility] [address] [place] [address] Dr. Kris Castillo EO # 0.3 103/ul Normal 0.0-0.7 [facility] Comment on above: Performed By: #### C BC #### [facility] [address] [place] [address] Dr. Kris Castillo Eosinophils/100 WBC (Bld) 3.8 % Normal 0.9-7.0 [facility] Comment on above: Performed By: #### C BC #### [facility] [address] [place] [address] Dr. Kris Castillo Erythrocyte distribution width (RBC) [Ratio] 16.2 % Critically high 11.0-15.0 [facility] Comment on above: Performed By: #### C BC #### [facility] [address] [place] [address] Dr. Kris Castillo Hematocrit (Bld) [Volume fraction] 34.7 % Critically low 36.0-48.0 [facility] Comment on above: Performed By: #### C BC #### [facility] [address] [place] [address] Dr. Kris Castillo Hemoglobin (Bld) [Mass/Vol] 10.8 g/dL Critically low 12.0-16.0 [facility] Comment on above: Performed By: #### C BC #### [facility] [address] [place] [address] Dr. Kris Castillo IG # 0.02 10e3/ul Normal 0.00-0.03 [facility] Comment on above: Performed By: #### C BC #### [facility] [address] [place] [address] Dr. Kris Castillo IG % 0.3 % Normal 0.0-0.5 [facility] Comment on above: Performed By: #### C BC #### [facility] [address] [place] [address] Dr. Kris Castillo LYMPH # 2.2 103/ul Normal 1.2-3.8 [facility] Comment on above: Performed By: #### C BC #### [facility] [address] [place] [address] Dr. Kris Castillo Lymphocytes/100 WBC (Bld) 27.9 % Normal 20.5-60.0 [facility] Comment on above: Performed By: #### C BC #### [facility] [address] [place] [address] Dr. Kris Castillo MANUAL DIFF REQ NO Normal [facility] Comment on above: Performed By: #### C BC #### [facility] [address] [place] [address] Dr. Kris Castillo MCH (RBC) [Entitic mass] 27.7 pg Normal 26.7-34.0 [facility] Comment on above: Performed By: #### C BC #### [facility] [address] [place] [address] Dr. Kris Castillo MCHC (RBC) [Mass/Vol] 31.1 g/dL Normal 29.9-35.2 [facility] Comment on above: Performed By: #### C BC #### [facility] [address] [place] [address] Dr. Kris Castillo MCV (RBC) [Entitic vol] 89.0 fL Normal 81.0-99.0 [facility] Comment on above: Performed By: #### C BC #### [facility] [address] [place] [address] Dr. Kris Castillo MONO # 0.6 103/ul Normal 0.3-0.8 [facility] Comment on above: Performed By: #### C BC #### [facility] [address] [place] [address] Dr. Kris Castillo Monocytes/100 WBC (Bld) 7.6 % Normal 1.7-12.0 [facility] Comment on above: Performed By: #### C BC #### [facility] [address] [place] [address] Dr. Kris Castillo NEUT # 4.7 103/ul Normal 1.4-6.5 [facility] Comment on above: Performed By: #### C BC #### [facility] [address] [place] [address] Dr. Kris Castillo Neutrophils/100 WBC (Bld) 59.8 % Normal 43.0-75.0 [facility] Comment on above: Performed By: #### C BC #### [facility] [address] [place] [address] Dr. Kris Castillo Platelet mean volume (Bld) [Entitic vol] 9.5 fL Normal 9.5-13.5 [facility] Comment on above: Performed By: #### C BC #### [facility] [address] [place] [address] Dr. Kris Castillo PLT 264 103/ul Normal 150-450 [facility] Comment on above: Performed By: #### C BC #### [facility] [address] [place] [address] Dr. Kris Castillo RBC 3.90 106/ul Critically low 4.20-5.40 [facility] Comment on above: Performed By: #### C BC #### [facility] [address] [place] [address] Dr. Kris Castillo WBC 7.9 103/ul Normal 4.0-11.0 [facility] Comment on above: Performed By: #### C BC #### [facility] [address] [place] [address] Dr. Kris Castillo Covid-19 PCR ([employer]on SARS-CoV-2 (COVID-19) RNA JAYY+probe Ql (Unsp spec) Not detected Normal NOT DETECTED [facility] Comment on above: Result Comment: When [...] for this test is supported by the Pig[employer] Supervisor of Health and Human Service's declaration that [...] used). Performed By: #### C VDTBH #### [facility] [address] [place] [address] Dr. Kris Castillo D-DIMERon 08-28-2022 D-DIMER 0.48 mg/L FEU Normal <=0.59 [facility] Comment on above: Performed By: #### D DIM #### [facility] [address] [place] [address] Dr. Kris Castillo D-DIMER COMMENTS SEE BELOW Normal [facility] Comment on above: Result Comment: Incr [...] hospitalization. Performed By: #### D DIM #### [facility] [address] [place] [address] Dr. Kris Castillo LIPID PROFILEon 08-28-2022 CHOL-HDL RATIO NORM SEE BELOW Normal [facility] Comment on above: Result Comment: 3.3 - 4.4 LOW RISK 4.4 - 7.1 AVERAGE RISK 7.1 - 11.0 MODERATE RISK >11.0 HIGH RISK Performed By: #### D DIM #### [facility] [address] [place] [address] Dr. Kris Castillo Cholesterol [Mass/Vol] 151 mg/dL Normal <=200 [facility] Comment on above: Performed By: #### D DIM #### [facility] [address] [place], [place] [id number] Dr. Kris Castillo Cholesterol in HDL [Mass/Vol] 77 mg/dL Critically high 40-60 [facility] Comment on above: Performed By: #### D DIM #### [facility] [address] [address] [address] Kris Castillo Cholesterol in LDL [Mass/Vol] 65.6 mg/dL Normal [facility] Comment on above: Performed By: #### D DIM #### [facility] [address] [address] [address] Kris Castillo Cholesterol.total/Chol esterol in HDL [Mass ratio] 2.0 {ratio} Normal [facility] Comment on above: Performed By: #### D DIM #### [facility] [address] [address] [address] rKis Castillo HDL NORMAL > or = 60 mg/dl - LOW CARDIOVASCULAR RISK <40 mg/dl - HIGH CARDIOVASCULAR RISK Normal [facility] Comment on above: Performed By: #### D DIM #### [facility] [address] [address] [address] Kris Castillo LDL CALC NORMAL SEE BELOW Normal [facility] Comment on above: Result Comment: <100 mg/dl OPTIMAL 100 - 129 mg/dl NEAR OR ABOVE OPTIMAL 130 - 159 mg/dl BORDERLINE HIGH 160 - 189 mg/dl HIGH >190 mg/dl VERY HIGH Performed By: #### D DIM #### [facility] [address] [address] [address] Kris Castillo Triglyceride [Mass/Vol] 42 mg/dL Normal <=150 [facility] Comment on above: Performed By: #### D DIM #### [facility] [address] [address] [address] Kris Castillo VLDL CALC 8.4 mg/dL Normal [facility] Comment on above: Performed By: #### D DIM #### [facility] [address] [address] [address] Kris Castillo POINT OF CARE GLUCOSEon 10-0 Glucose [Mass/Vol] 108 mg/dL Critically high 74-106 [facility] Comment on above: Performed By: #### D DIM #### [facility] [address] [address] [address] Kris Castillo PROF 14(COMP METB)on 022 Albumin [Mass/Vol] 3.4 g/dL Normal 3.4-5.0 [facility] Comment on above: Performed By: #### D DIM #### [facility] [address] [place] [address] Dr. Kris Castillo Albumin/Globulin [Mass ratio] 0.9 {ratio} Normal [facility] Comment on above: Performed By: #### D DIM #### [facility] [address] [place] [address] Dr. Kris Castillo ALP [Catalytic activity/Vol] 88 U/L Normal 46-116 [facility] Comment on above: Performed By: #### D DIM #### [facility] [address] [place] [address] Dr. Kris Castillo ALT [Catalytic activity/Vol] 16 U/L Normal 14-59 [facility] Comment on above: Performed By: #### D DIM #### [facility] [address] [place] [address] Dr. Kris Castillo Anion gap [Moles/Vol] 9.5 mmol/L Normal [facility] Comment on above: Performed By: #### D DIM #### [facility] [address] [place] [address] Dr. Kris Castillo AST [Catalytic activity/Vol] 18 U/L Normal 15-37 [facility] Comment on above: Performed By: #### D DIM #### [facility] [address] [place] [address] Dr. Kris Castillo Bilirubin [Mass/Vol] 0.5 mg/dL Normal 0.2-1.0 [facility] Comment on above: Performed By: #### D DIM #### [facility] [address] [place] [address] Dr. Kris Castillo Calcium [Mass/Vol] 9.7 mg/dL Normal 8.5-10.1 [facility] Comment on above: Performed By: #### D DIM #### [facility] [address] [place] [address] Dr. Kris Castillo Chloride [Moles/Vol] 103 mmol/L Normal 98-107 [facility] Comment on above: Performed By: #### D DIM #### [facility] [address] [address] [address] Kris Castillo CO2 [Moles/Vol] 28.4 mmol/L Normal 21.0-32.0 [facility] Comment on above: Performed By: #### D DIM #### [facility] [address] [address] [address] Kris Castillo Creatinine [Mass/Vol] 0.78 mg/dL Normal 0.55-1.02 [facility] Comment on above: Performed By: #### D DIM #### [facility] [address] [address] [address] Kris Castillo EGFR-AF [place]IZ[place] >60 Normal >=60 [facility] Comment on above: Performed By: #### D DIM #### [facility] [address] [address] [address] Kris Castillo EGFR-NON AF [place] >60 Normal >=60 [facility] Comment on above: Performed By: #### D DIM #### [facility] [address] [address] [address] Kris Castillo Globulin (S) [Mass/Vol] 3.6 g/dL Normal [facility] Comment on above: Performed By: #### D DIM #### [facility] [address] [place] [address] Dr. Kris Castillo Glucose [Mass/Vol] 111 mg/dL Critically high 74-106 T [facility] Comment on above: Performed By: #### D DIM #### [facility] [address] [address] [address] Kris Castillo Potassium [Moles/Vol] 3.9 mmol/L Normal 3.5-5.1 [facility] Comment on above: Performed By: #### D DIM #### [facility] [address] [place] [address] Dr. Kris Castillo Protein [Mass/Vol] 7.0 g/dL Normal 6.4-8.2 [facility] Comment on above: Performed By: #### D DIM #### [facility] [address] [place] [address] Dr. Kris Castillo Sodium [Moles/Vol] 137 mmol/L Normal 136-145 [facility] Comment on above: Performed By: #### D DIM #### [facility] [address] [id number] [address] Kris Castillo Urea nitrogen [Mass/Vol] 21.0 mg/dL Critically high 7.0-18.0 [facility] Comment on above: Performed By: #### D DIM #### [facility] [address] [id number] [address] Kris Castillo Urea nitrogen/Creatinine [Mass ratio] 26.9 mg/mg Normal [facility] Comment on above: Performed By: #### D DIM #### [facility] [address] [id number] [address] Kris Castillo XR CHEST 1 Von [...] by: GABRIELA MITTAL Date: 2022-08-28 02:26 Normal [facility] CULTURE URINEon 07-27-2022 CULTURE URINE Isolate [...] F Trimethoprim/Sulfame thoxazole >=320 R F Normal [facility] Comment on above: Performed By: #### D DIM #### [facility] [address] [place] [address] Dr. Kris Castillo ACETONE SERUMon 07-25-2022 ACETONE Negative Normal NEGATIVE [facility] Comment on above: Performed By: #### C MREP #### [facility] [address] [place] [address] Dr. Kris Castillo BNPon 07-25-2022 Natriuretic peptide B (Bld) [Mass/Vol] 111.0 pg/mL Normal <=900.0 [facility] Comment on above: Performed By: #### C MREP #### [facility] [address] [place] [address] Dr. Kris Castillo CARDIAC ROYA ADMITon 022 CK [Catalytic activity/Vol] 61 U/L Normal 26-192 [facility] Comment on above: Performed By: #### C MREP #### [facility] [address] [place] [address] Dr. Kris Castillo CK.MB [Mass/Vol] 1.55 ng/mL Normal <=3.60 [facility] Comment on above: Performed By: #### C MREP #### [facility] [address] [place] [address] Dr. Kris Castillo HSTROP 7.1 pg/mL Normal 4.0-51.3 [facility] Comment on above: Result Comment: CUT- OFF POINTS HAVE BEEN ESTABLISHED BASED ON THE FOURTH UNIVERSAL DEFINITIONS OF MYOCARDIAL INFARCTION. THE UPPER REFERENCE LIMIT (URL) OF TROPONIN, DEFINED THE 99TH PERCENTILE OF cTnI DISTRIBUTION IN A REFERENCE POPULATION, HAS BEEN CONFIRMED THE DECISION THRESHOLD FOR ME DIAGNOSIS. Performed By: #### C MREP #### [facility] [address] [place] [address] Dr. Kris Castillo RAMSES 29 ng/mL Normal 9-82 [facility] Comment on above: Performed By: #### C MREP #### [facility] [address] [address] [address] Kris Castillo CBC AUTO DIFFon 07-25-2022 BASO # 0.1 103/ul Normal 0.0-0.1 [facility] Comment on above: Performed By: #### C BC #### [facility] [address] [place] [address] Dr. Kris Castillo Basophils/100 WBC (Bld) 0.6 % Normal 0.2-2.0 [facility] Comment on above: Performed By: #### C BC #### [facility] [address] [place] [address] Dr. Kris Castillo EO # 0.2 103/ul Normal 0.0-0.7 [facility] Comment on above: Performed By: #### C BC #### [facility] [address] [place] [address] Dr. Kris Castillo Eosinophils/100 WBC (Bld) 2.6 % Normal 0.9-7.0 [facility] Comment on above: Performed By: #### C BC #### [facility] [address] [place] [address] Dr. Kris Castillo Erythrocyte distribution width (RBC) [Ratio] 17.4 % Critically high 11.0-15.0 [facility] Comment on above: Performed By: #### C BC #### [facility] [address] [place] [address] Dr. Kris Castillo Hematocrit (Bld) [Volume fraction] 34.5 % Critically low 36.0-48.0 [facility] Comment on above: Performed By: #### C BC #### [facility] [address] [place] [address] Dr. Kris Castillo Hemoglobin (Bld) [Mass/Vol] 11.0 g/dL Critically low 12.0-16.0 [facility] Comment on above: Performed By: #### C BC #### [facility] [address] [place] [address] Dr. Kris Castillo IG # 0.03 10e3/ul Normal 0.00-0.03 [facility] Comment on above: Performed By: #### C BC #### [facility] [address] [place] [address] Dr. Kris Castillo IG % 0.3 % Normal 0.0-0.5 [facility] Comment on above: Performed By: #### C BC #### [facility] [address] [place] [address] Dr. Kris Castillo LYMPH # 2.0 103/ul Normal 1.2-3.8 [facility] Comment on above: Performed By: #### C BC #### [facility] [address] [place] [address] Dr. Kris Castillo Lymphocytes/100 WBC (Bld) 21.8 % Normal 20.5-60.0 [facility] Comment on above: Performed By: #### C BC #### [facility] [address] [place] [address] Dr. Kris Castillo MANUAL DIFF REQ NO Normal [facility] Comment on above: Performed By: #### C BC #### [facility] [address] [place] [address] Dr. Kris Castillo MCH (RBC) [Entitic mass] 27.8 pg Normal 26.7-34.0 [facility] Comment on above: Performed By: #### C BC #### [facility] [address] [place] [address] Dr. Kris Castillo MCHC (RBC) [Mass/Vol] 31.9 g/dL Normal 29.9-35.2 [facility] Comment on above: Performed By: #### C BC #### [facility] [address] [place] [address] Dr. Kris Castillo MCV (RBC) [Entitic vol] 87.3 fL Normal 81.0-99.0 [facility] Comment on above: Performed By: #### C BC #### [facility] [address] [place] [address] Dr. Kris Castillo MONO # 0.5 103/ul Normal 0.3-0.8 [facility] Comment on above: Performed By: #### C BC #### [facility] [address] [place] [address] Dr. Kris Castillo Monocytes/100 WBC (Bld) 5.9 % Normal 1.7-12.0 [facility] Comment on above: Performed By: #### C BC #### [facility] [address] [place] [address] Dr. Kris Castillo NEUT # 6.2 103/ul Normal 1.4-6.5 [facility] Comment on above: Performed By: #### C BC #### [facility] [address] [place] [address] Dr. Kris Castillo Neutrophils/100 WBC (Bld) 68.8 % Normal 43.0-75.0 [facility] Comment on above: Performed By: #### C BC #### [facility] [address] [place] [address] Dr. Kris Castillo Platelet mean volume (Bld) [Entitic vol] 9.5 fL Normal 9.5-13.5 [facility] Comment on above: Performed By: #### C BC #### [facility] [address] [place] [address] Dr. Kris Castillo PLT 231 103/ul Normal 150-450 [facility] Comment on above: Performed By: #### C BC #### [facility] [address] [place] [address] Dr. Kris Castillo RBC 3.95 106/ul Critically low 4.20-5.40 [facility] Comment on above: Performed By: #### C BC #### [facility] [address] [place] [address] Dr. Kris Castillo WBC 9.0 103/ul Normal 4.0-11.0 [facility] Comment on above: Performed By: #### C BC #### [facility] [address] [place], [place] [id number] Dr. Kris Castillo CT HEAD WO CONon [...] ears demonstrate no substantial mucosal disease. Bilateral jena ocular lens replacement.Nonspeci fic calcifications are present [...] ASTRID RODRIGUEZ Date: 2022-07-25 12:48 Normal [facility] ER URINE PROFILEon 2 Bilirubin Ql (U) Negative Normal NEGATIVE [facility] Comment on above: Performed By: #### U MICRO, ERUR #### [facility] [address] [place] [address] Dr. Kris Castillo Clarity (U) CLEAR Normal CLEAR [facility] Comment on above: Performed By: #### U MICRO, ERUR #### [facility] [address] [place] [address] Dr. Kris Castillo Color (U) LT. YELLOW Normal YELLOW [facility] Comment on above: Performed By: #### U MICRO, ERUR #### [facility] [address] [place] [address] Dr. Kris Castillo ERUAHD A micrscopic examination will be performed if indicated. Normal [facility] Comment on above: Performed By: #### U MICRO, ERUR #### [facility] [address] [place] [address] Dr. Kris Castillo Glucose Ql (U) Negative Normal NEGATIVE [facility] Comment on above: Performed By: #### U MICRO, ERUR #### [facility] [address] [address] [address] Kris Castillo Hemoglobin Ql (U) Negative Normal NEGATIVE [facility] Comment on above: Performed By: #### U MICRO, ERUR #### [facility] [address] [address] [address] Kris Castillo Ketones Ql (U) Negative Normal NEGATIVE [facility] Comment on above: Performed By: #### U MICRO, ERUR #### [facility] [address] [address] [address] Kris Castillo LEUKOCYTES SMALL Abnormal NEGATIVE [facility] Comment on above: Performed By: #### U MICRO, ERUR #### [facility] [address] [address] [address] Kris Castillo Nitrite Ql (U) Negative Normal NEGATIVE [facility] Comment on above: Performed By: #### U MICRO, ERUR #### [facility] [address] [place] [address] Dr. Kris Castillo pH (U) 6.0 [pH] Normal 5-9 [facility] Comment on above: Performed By: #### U MICRO, ERUR #### [facility] [address] [place] [address] Dr. Kris Castillo SPEC GRAVITY <=1.005 Abnormal 1.005-<=1.02 5 [facility] Comment on above: Performed By: #### U MICRO, ERUR #### [facility] [address] [address] [address] Kris Castillo UA PROTEIN Negative Normal NEGATIVE/ TRACE [facility] Comment on above: Performed By: #### U MICRO, ERUR #### [facility] [address] [address] [address] Kris Castillo UR MICRO IND INDICATED Normal [facility] Comment on above: Performed By: #### U MICRO, ERUR #### [facility] [address] [place] [address] Dr. Kris Castillo Urobilinogen Qn (U) 0.2 {Yaritza'U}/dL Normal 0.2 - 1. 0 [facility] Comment on above: Performed By: #### U MICRO, ERUR #### [facility] [address] [place] [address] Dr. Kris Castillo PH VENOUS BLOODon 07-25-2022 PCO2 VENOUS 49.1 mmHg Normal 40.0-52.0 [facility] Comment on above: Performed By: #### P T, PTT #### [facility] [address] [place] [address] Dr. Kris Castillo pH VENOUS 7.320 Critically low 7.330-7.430 [facility] Comment on above: Performed By: #### P T, PTT #### [facility] [address] [place] [address] Dr. Kris Castillo PROF 14(COMP METB)on 022 Albumin [Mass/Vol] 3.5 g/dL Normal 3.4-5.0 [facility] Comment on above: Performed By: #### C MREP #### [facility] [address] [place] [address] Dr. Kris Castillo Albumin/Globulin [Mass ratio] 1.0 {ratio} Normal [facility] Comment on above: Performed By: #### C MREP #### [facility] [address] [place] [address] Dr. Kris Castillo ALP [Catalytic activity/Vol] 82 U/L Normal 46-116 [facility] Comment on above: Performed By: #### C MREP #### [facility] [address] [place] [address] Dr. Kris Castillo ALT [Catalytic activity/Vol] 18 U/L Normal 14-59 [facility] Comment on above: Performed By: #### C MREP #### [facility] [address] [place] [address] Dr. Kris Castillo Anion gap [Moles/Vol] 15.9 mmol/L Normal [facility] Comment on above: Performed By: #### C MREP #### [facility] [address] [place] [address] Dr. Kris Castillo AST [Catalytic activity/Vol] 14 U/L Critically low 15-37 [facility] Comment on above: Performed By: #### C MREP #### [facility] [address] [address] [address] Kris Castillo Bilirubin [Mass/Vol] 0.4 mg/dL Normal 0.2-1.0 [facility] Comment on above: Performed By: #### C MREP #### [facility] [address] [place] [address] Dr. Kris Castillo Calcium [Mass/Vol] 8.6 mg/dL Normal 8.5-10.1 [facility] Comment on above: Performed By: #### C MREP #### [facility] [address] [place] [address] Dr. Kris Castillo Chloride [Moles/Vol] 102 mmol/L Normal 98-107 [facility] Comment on above: Performed By: #### C MREP #### [facility] [address] [place] [address] Dr. Kris Castillo CO2 [Moles/Vol] 22.7 mmol/L Normal 21.0-32.0 [facility] Comment on above: Performed By: #### C MREP #### [facility] [address] [place] [address] Dr. Kris Castillo Creatinine [Mass/Vol] 0.63 mg/dL Normal 0.55-1.02 [facility] Comment on above: Performed By: #### C MREP #### [facility] [address] [place] [address] Dr. Kris Castillo EGFR-AF [place] CITIZ[place] >60 Normal >=60 [facility] Comment on above: Performed By: #### C MREP #### [facility] [address] [place] [address] Dr. Kris Castillo EGFR-NON AF [place] CITIZ[place] >60 Normal >=60 [facility] Comment on above: Performed By: #### C MREP #### [facility] [address] [place] [address] Dr. Kris Castillo Globulin (S) [Mass/Vol] 3.4 g/dL Normal [facility] Comment on above: Performed By: #### C MREP #### [facility] [address] [address] [address] Kris Castillo Glucose [Mass/Vol] 92 mg/dL Normal 74-106 [facility] Comment on above: Performed By: #### C MREP #### [facility] [address] [address] [address] Kris Castillo Potassium [Moles/Vol] 3.6 mmol/L Normal 3.5-5.1 [facility] Comment on above: Performed By: #### C MREP #### [facility] [address] [address] [address] Kris Castillo Protein [Mass/Vol] 6.9 g/dL Normal 6.4-8.2 [facility] Comment on above: Performed By: #### C MREP #### [facility] [address] [address] [address] Kris Castillo Sodium [Moles/Vol] 137 mmol/L Normal 136-145 [facility] Comment on above: Performed By: #### C MREP #### [facility] [address] [address] [address] Kris Castillo Urea nitrogen [Mass/Vol] 24.0 mg/dL Critically high 7.0-18.0 [facility] Comment on above: Performed By: #### C MREP #### [facility] [address] [address] [address] Kris Castillo Urea nitrogen/Creatinine [Mass ratio] 38.1 mg/mg Normal [facility] Comment on above: Performed By: #### C MREP #### [facility] [address] [address] [address] Kris Castillo PROTIMEon 07-25-2022 INR Coag (PPP) [Relative time] 1.01 {INR} Normal [facility] Comment on above: Performed By: #### P T, PTT #### [facility] [address] [address] [address] Kris Castillo INR GUIDELINES SEE BELOW Normal [facility] Comment on above: Result Comment: ISAAC RED INR: 2.0 - 3.0 CONDITIONS NOT LISTED BELOW 2.5 - 3.5 FOR PROSTHETIC HEART VALVE REPLACEMENT 2.5 - 3.5 RECURRENT THROMBOSIS Performed By: #### P T, PTT #### [facility] [address] [place] [address] Dr. Kris Castillo PT Coag (PPP) [Time] 10.9 s Normal 9.0-11.6 [facility] Comment on above: Performed By: #### P T, PTT #### [facility] [address] [place] [address] Dr. Kris Castillo PTTon 07-25-2022 aPTT Coag (Bld) [Time] 27.6 s Normal 22.3-36.2 [facility] Comment on above: Performed By: #### P T, PTT #### [facility] [address] [place] [address] Dr. Kris Castillo SARS-CoV-2 (COVID-19) RNA NA A+probe Ql (Resp)on 07-25-2022 SARS-CoV-2 (COVID-19) RNA JAYY+probe Ql (Unsp spec) Negative [employer] Other URINE MICROSCOPIC ONLYon BACTERIA MODERATE Abnormal NONE SEEN [facility] Comment on above: Performed By: #### U MICRO, ERUR #### [facility] [address] [place] [address] Dr. Kris Castillo Bacteria identified Cx Nom (U) INDICATED Normal [facility] Comment on above: Performed By: #### U MICRO, ERUR #### [facility] [address] [place] [address] Dr. Kris Castillo CAST NONE SEEN Normal NONE SEEN [facility] Comment on above: Performed By: #### U MICRO, ERUR #### [facility] [address] [place] [address] Dr. Kris Castillo Crystals LM Nom (Urine sed) NONE SEEN Normal NONE SEEN [facility] Comment on above: Performed By: #### U MICRO, ERUR #### [facility] [address] [place] [address] Dr. Kris Castillo Epithelial cells LM Ql (Urine sed) FEW Abnormal NONE SEEN /RARE [facility] Comment on above: Performed By: #### U MICRO, ERUR #### [facility] [address] [address] [address] Kris Castillo MUCOUS NONE SEEN Normal NONE SEEN [facility] Comment on above: Performed By: #### U MICRO, ERUR #### [facility] [address] [address] [address] Kris Castillo RBC 0-2 Normal 0-2 [facility] Comment on above: Performed By: #### U MICRO, ERUR #### [facility] [address] [address] [address] Kris Castillo WBC 2-5 Abnormal NONE SEEN [facility] Comment on above: Performed By: #### U MICRO, ERUR #### [facility] [address] [place] [address] Dr. Kris Castillo XR CHEST 1 Von [...] by: BILL JONES Date: 2022-07-25 12:52 Normal [facility] CBC Auto Differentialon 05-1 Absolute Eos # 0.00 [facility] th Absolute Lymph # 1.40 [facility] alth Absolute [place] # 0.30 [facility] Basophils (Bld) [#/Vol] 0.10 10*3/uL [employer] Basophils/100 WBC (Bld) 1 % 0 - 2 % [employer] Eosinophils/100 WBC (Bld) 0 % 0 - 4 % [facility] Hematocrit (Bld) [Volume fraction] 35.2 % Low 36 - 46 % [employer] [facility] Hemoglobin.gastrointes tinal spec 1 Ql (Stl) 11.2 g/dL Low 12.0 - 16.0 g/dL [facility] Interpretation and review of laboratory results Abnormal [facility] Lymphocytes/100 WBC (Bld) 14 % Low 24 - 44 % [facility] MCH (RBC) [Entitic mass] 27.7 pg 26 - 34 pg [facility] MCHC (RBC) [Mass/Vol] 31.9 g/dL 31 - 37 g/dL [facility] MCV (RBC) [Entitic vol] 86.8 fL 80 - 100 fL [facility] Monocytes/100 WBC (Bld) 3 % 1 - 7 % [facility] Platelet distribution width (Bld) [Ratio] 16.5 % High 11.5 - 14.9 % [facility] Platelet mean volume (Bld) [Entitic vol] 6.8 fL 6.0 - 12.0 fL [facility] Platelets (Bld) [#/Vol] 290 10*3/uL [facility] RBC (Bld) [#/Vol] 4.06 10*6/uL 4.0 - 5.2 m/uL [facility] Segmented neutrophils/100 WBC (Bld) 82 % High 36 - 66 % [facility] Segs Absolute 8.50 [facility] h WBC (Bld) [#/Vol] 10.3 10*3/uL [facility] CBC with Auto Differentialon 04-07-2022 Absolute Eos # 0.00 [facility] th Absolute Lymph # 1.40 [facility] alth Absolute [place] # 0.30 [facility] lth Basophils (Bld) [#/Vol] 0.10 10*3/uL [facility] Basophils/100 WBC (Bld) 1 % 0 - 2 % [facility] Eosinophils/100 WBC (Bld) 0 % 0 - 4 % [facility] Hematocrit (Bld) [Volume fraction] 35.2 % Low 36 - 46 % [facility] Hemoglobin.gastrointes tinal spec 1 Ql (Stl) 11.2 g/dL Low 12.0 - 16.0 g/dL [facility] Interpretation and review of laboratory results Abnormal [facility] Lymphocytes/100 WBC (Bld) 14 % Low 24 - 44 % [facility] MCH (RBC) [Entitic mass] 27.7 pg 26 - 34 pg [facility] MCHC (RBC) [Mass/Vol] 31.9 g/dL 31 - 37 g/dL [facility] MCV (RBC) [Entitic vol] 86.8 fL 80 - 100 fL [facility] Monocytes/100 WBC (Bld) 3 % 1 - 7 % [facility] Platelet distribution width (Bld) [Ratio] 16.5 % High 11.5 - 14.9 % [facility] Platelet mean volume (Bld) [Entitic vol] 6.8 fL 6.0 - 12.0 fL [facility] Platelets (Bld) [#/Vol] 290 10*3/uL [facility] RBC (Bld) [#/Vol] 4.06 10*6/uL 4.0 - 5.2 m/uL [facility] Segmented neutrophils/100 WBC (Bld) 82 % High 36 - 66 % [facility]s [facility] 8.50 [facility] W[facility] (Bld) [#/Vol] 10.3 10*3/uL [facility] Iron And TIBCon 04-07-2022 Interpretation and review of laboratory results Abnormal [facility] Iron [Mass/Vol] 34 ug/dL Low 37 - 145 ug/dL [facility] Iron Saturation 8 % Low 20 - 55 % [facility] lt TIBC 413 ug/dL 250 - 450 ug/dL [facility] UIBC 379 ug/dL High 112 - 347 ug/dL [facility] COVID Quick Testingon 2021 Result Negative [employer] Other Quick Fluon 04-06-2022 FLUAV Ab CF (S) [Titer] Negative [employer] Other FLUBV Ab CF (S) [Titer] Negative [employer] Other Laboratory - Microbiology an d Antimicrobial susceptibilityon 09-17-2021 SARS-CoV-2 (COVID-19) RNA JAYY+probe Ql (Unsp spec) -[address] Work Phone: No Panel Informationon 09-17 18\S\18 Normal 9-23 -[address] Work Phone: 27.4\S\27.4 Normal 25.1-36.5 -[address] Work Phone: Comment on above: PERFORMED BY:[facility] [place] [id number] MEDICAL DIRECTORKIA MORE M.D. 1.1\S\1.1 Normal [facility] [address] [place] Work Phone: Comment on above: [...] valves: 3 - 4.5 12.5\S\12.5 Normal 9.0-12.9 [facility] [address] [place] Work Phone: 24.9\S\24.9 Normal 22.0-30.0 [facility] [address] [place] Work Phone: 106\S\106 Normal 95-114 [facility] [address] [place] Work Phone: 3.8\S\3.8 Normal 3.5-5.1 [facility] [address] [place] Work Phone: 140\S\140 Normal 136-146 [facility] [address] [place] Work Phone: [facility] [address] [place] Work Phone: > 60 Normal [facility] [address] [place] Work Phone: Comment on above: GFR estimated refere nce range: According to KDOQI guidelines, <60 ml/min/1.73m2 is sufficient to diagnose a patient with chronic kidney disease.PERFORMED BY:[facility] [id number] MEDICAL DIRECTORKIA MORE M.D. 0.57\S\0.57 Normal 0.44-1.03 [facility] [address] [place] Work Phone: 46.1\S\46.1 Normal . -[facility] [address] [place] Work Phone: 7.2\S\7.2 Normal . [facility] [address] [place] Work Phone: 267\S\267 Normal 150-450 [facility] [address] [place] Work Phone: 20.2\S\20.2 above high threshold 11.9-15.3 -[facility] [address] [place] Work Phone: 30.4\S\30.4 below low threshold 32.0-35.0 -[facility] [address] [place] Work Phone: 20.9\S\20.9 below low threshold 24.7-34.3 -[facility] [address] [place] Work Phone: 2.1\S\2.1 Normal 1.8-7.7 -[facility] [address] [place] Work Phone: 0.0\S\0.0 Normal 0-0.5 -[facility] [address] [place] Work Phone: 1.9\S\1.9 Normal 1.00-4.8 -[facility] [address] [place] Work Phone: 4.5\S\4.5 Normal . [facility] [address] [place] Work Phone: 40.3\S\40.3 Normal . [facility] [address] [place] Work Phone: Moderate Normal [facility] [address] [place] Work Phone: 0.1\S\0.1 Normal 0.0-0.2 -[facility] [address] [place] Work Phone: 0.2\S\0.2 Normal 0.0-0.45 [facility] [address] [place] Work Phone: 0.3\S\0.3 Normal 0.0-0.8 [facility] [address] [place] Work Phone: Normal Normal Normal [facility] [address] [place] Work Phone: Comment on above: PERFORMED BY:[facility] [place] [place], [place] [phone] MEDICAL DIRECTORKIA MORE M.D. Slight Normal [facility] [address] [place] Work Phone: 68.8\S\68.8 below low threshold 80-100 [facility] [address] [place] Work Phone: 26.3\S\26.3 below low threshold 34.0-46.4 [facility] [address] [place] Work Phone: 8.0\S\8.0 below low threshold 11.8-15.4 [facility] [address] [place] Work Phone: 3.82\S\3.82 Normal 3.60-5.00 [facility] [address] [place] Work Phone: 4.6\S\4.6 Normal 3.8-11.6 [facility] [address] [place] Work Phone: [facility] [address] [place] Work Phone: Laboratory - Chemistry and C hemistry - challengeon 09-09-2021 Cholesterol [Mass/Vol] 164\S\164 Normal 140-200 [facility] [address] [place] Work Phone: Comment on above: Chol less than 200 m g/dl low risk Chol 201-239 mg/dl borderline risk Chol 240 mg/dl and greater high risk Cholesterol in LDL [Mass/Vol] 90\S\90 Normal 0-[address] Work Phone: Comment on above: LDL ATP III CLASSIFI CATION LDL less than 100 mg/dL Optimal LDL 100-129 mg/dL Near or above optimal LDL 130-159 mg/dL Borderline high LDL 160-189 mg/dL High LDL greater than 189 mg/dL Very high Laboratory - Microbiology an d Antimicrobial susceptibilityon 09-09-2021 SARS-CoV-2 (COVID-19) RNA JAYY+probe Ql (Unsp spec) [address] Work Phone: No Panel Informationon 09-09 29.7\S\29.7 Normal 25.1-36.[address] Work Phone: Comment on above: PERFORMED BY:[address] [address] [address] [place], [place] [phone] MEDICAL DIRECTORKIA MORE M.D. 1.2\S\1.[address] Work Phone: Comment on above: INR [...] - 4.5 13.3\S\13.3 above high threshold 9.0-12.[address] Work Phone: 24.8\S\24.8 Normal 22.0-30.[address] Work Phone: 106\S\106 Normal 95-[address] Work Phone: 4.0\S\4.0 Normal 3.5-5.1 [facility] [facility] [address] [place] Work Phone: 140\S\140 Normal 136-146 -[facility] [address] [place] Work Phone: Slight Normal -[facility] [address] [place] Work Phone: Comment on above: PERFORMED BY:[facility] [place] [id number] MEDICAL DIRECTORKIA MORE M.D. Normal Normal Normal -[facility] [address] [place] Work Phone: Moderate Normal -[facility] [address] [place] Work Phone: 0.1\S\0.1 Normal 0.0-0.2 [facility] [address] [place] Work Phone: 0.3\S\0.3 Normal 0.0-0.45 [facility] [address] [place] Work Phone: 0.4\S\0.4 Normal 0.0-0.8 [facility] [address] [place] Work Phone: 2.1\S\2.1 Normal 1.00-4.8 [facility] [address] [place] Work Phone: 2.6\S\2.6 Normal 1.8-7.7 -[facility] [address] [place] Work Phone: Comment on above: PERFORMED BY:[facility] [place] [phone] MEDICAL DIRECTORKIA MORE M.D. 0.0\S\0.0 Normal 0-0.5 -[facility] [address] [place] Work Phone: 1.1\S\1.1 Normal . [facility] [address] [place] Work Phone: 5.3\S\5.3 Normal . [facility] [address] [place] Work Phone: 7.2\S\7.2 Normal . -[facility] [address] [place] Work Phone: 39.2\S\39.2 Normal . -[facility] [address] [place] Work Phone: 47.2\S\47.2 Normal . -[facility] [address] [place] Work Phone: 6.8\S\6.8 Normal 6.3-10.7 -[facility] [address] [place] Work Phone: 332\S\332 Normal 150-450 -[facility] [address] [place] Work Phone: 20.1\S\20.1 above high threshold 11.9-15.3 -[facility] [address] [place] Work Phone: 29.8\S\29.8 below low threshold 32.0-35.0 -[facility] [address] [place] Work Phone: 20.7\S\20.7 below low threshold 24.7-34.3 -[facility] [address] [place] Work Phone: 69.2\S\69.2 below low threshold 80-100 -[facility] [address] [place] Work Phone: 27.8\S\27.8 below low threshold 34.0-46.4 -[facility] [address] [place] Work Phone: 8.3\S\8.3 below low threshold 11.8-15.4 -[facility] [address] [place] Work Phone: 4.01\S\4.01 Normal 3.60-5.00 -[facility] [address] [place] Work Phone: 5.5\S\5.5 Normal 3.8-11.6 [facility] [employer] [employer] Work Phone: 11\S\11 Normal [facility] Work Phone: 57\S\57 Normal 35-149 [facility] [employer] Work Phone: Comment on above: TRIG ATP III CLASSIF ICATION TRIG less than 150 mg/dL Normal TRIG 150-199 mg/dL Borderline high TRIG 200-500 mg/dL High TRIG greater than 500 mg/dL Very high Standard traceable to the Center for Disease Conrtrol and Prevention (CDC) test method. 63\S\63 Normal 35-85 [facility] [employer] Work Phone: Comment on above: HDL CHOL ATP-III CLA SSIFICATION Cardiovascular Risk HDL > or equal to 60 mg/dL LOW HDL < 40 mg/dL HIGH > 60 Normal [facility] [employer] Work Phone: Comment on above: GFR estimated refere nce range: According to KDOQI guidelines, <60 ml/min/1.73m2 is sufficient to diagnose a patient with chronic kidney disease. 0.56\S\0.56 Normal 0.44-1.03 [facility] [employer] Work Phone: 19\S\19 Normal 9-23 [facility] [employer] Work Phone: [facility] [employer] Work Phone: [facility] [employer] Work Phone: Office Visit (Cardiology)on 09-02-2021 Follow-up [...] Hospital Evaluation and Treatment Evaluate AND Treat [facility] diagnostic staff to initiate [facility] preop orders for left cardiac cath Status: Hold For - Scheduling,Retrospec tive Authorization Requested for: 02Sep2021 Electrocardiogram 12 Lead; Status:Active - Retrospective Authorization; Requested for:02Sep2021; SocHx: Never a smoker Tobacco Use Screening; Status:Complete; Done: 02Sep2021 Patient Instructions By signing my name below, I, Marla Suresh LPN ,Sandeep, attest that this documentation has been prepared [...] a history of prior heart catheterization in [place] remotely that revealed normal coronary arteries. I [...] 2 SPRAYS IN EACH NOSTRIL ONCE DAILY [id number] AT NIGHT Pantoprazole Sodium 40 MG Oral [...] illicit tres (more content not included)... Normal [employer] Tobacco Screening.on 021 Fall risk assessment a) No falls within the last year [facility] [address] [facility] Work Phone: Tobacco use status CP b) No [facility] [address] DO Work Phone: POC Glucose Fingerstickon Glucose [Mass/Vol] 101 mg/dL 65 - 105 mg/dL [employer] Phone: Glucose [Mass/Vol] 121 mg/dL High 65 - 105 mg/dL [employer] Phone: Interpretation and review of laboratory results Abnormal [employer] Phone: Folateon 03-03-2021 Folate 6.6 ng/mL >4.8 [employer] Phone: Iron and TIBCon 03-03-2021 Interpretation and review of laboratory results Abnormal [employer] Phone: Iron [Mass/Vol] 15 ug/dL Low 37 - 145 ug/dL [facility] Phone: Iron Saturation 4 % Low 20 - 55 % [employer] [facility] Work Phone: TIBC 390 ug/dL 250 - 450 ug/dL [employer] Work Phone: UIBC 375 ug/dL High 112 - 347 ug/dL [employer] Phone: Reticulocyteson 03-03-2021 Absolute Retic # 0.049 [employer] [facility] Work Phone: Immature Retic Fract NOT REPORTED % [employer] Work Phone: Retic % 1.3 % 0.5 - 2.0 % [employer] Phone: Retic Hemoglobin NOT REPORTED 28.2 - 35.7 pg [facility] Phone: Vitamin B12on 03-03-2021 Cobalamin (Vitamin B12) [Mass/Vol] pg/mL High 232 - 1245 pg/mL [facility] Phone: Interpretation and review of laboratory results Abnormal [employer] Phone: Vital Signs Date Time Vital Sign Value Performing Clinician Facility 12-28-2023 12:00-0500 Body height 149.86 cm Tayla Torres Other [employer] Other 12-28-2023 12:00-0500 Body mass index (BMI) [Ratio] 35.95 kg/m2 Tayla Torres Other [employer] Other 12-28-2023 12:00-0500 Body temperature 98.1 [degF] Tayla Torres Other [employer] Other 12-28-2023 12:00-0500 Body weight 80.74 kg Tayla Torres Other [employer] Other 12-28-2023 12:00-0500 Respiratory rate 18 /min Tayla Torres Other [employer] Other 12-28-2023 12:00-0500 SaO2% (BldA) [Mass fraction] 97 % Tayla Torres Other [employer] Other 05-14-2023 12:05-0400 Body height 152.4 cm Concepcion Moore DO Work Phone: [facility] 05-14-2023 12:05-0400 Body weight 74.84 kg Concepcion Moore DO Work Phone: [facility] 05-08-2023 11:30-0400 Body height 149.86 cm Courtney Perez Other [employer] Other 05-08-2023 11:30-0400 Body mass index (BMI) [Ratio] 33.24 kg/m2 Courtney Perez Other [employer] Other 05-08-2023 11:30-0400 Body temperature 97.7 [degF] Courtney Perez Other [employer] Other 05-08-2023 11:30-0400 Body weight 74.66 kg Courtney Perez Other [employer] Other 05-08-2023 11:30-0400 Diastolic blood pressure 66 mm[Hg] Courtney Perez Other [employer] Other 05-08-2023 11:30-0400 Respiratory rate 18 /min Courtney Perez Other [employer] Other 05-08-2023 11:30-0400 SaO2% (BldA) [Mass fraction] 98 % Courtney Perez Other [employer] Other 05-08-2023 11:30-0400 Systolic blood pressure 154 mm[Hg] Courtney Perez Other [employer] Other 12-08-2022 16:06-0500 Body height 149.9 cm St[facility] 3 [facility] [employer] 12-08-2022 16:06-0500 Body mass index (BMI) [Ratio] 33.73 kg/m2 St[facility] 3 [facility] [employer] 12-08-2022 16:06-0500 Body weight 75.75 kg Stcz 3 [facility] [employer] 09-03-2022 10:25-0400 Body height 149.86 cm Adilia Buck Other [employer] Other 07-25-2022 10:25-0400 Body mass index (BMI) [Ratio] 35.14 kg/m2 Adilia Buck Other [employer] Other 07-25-2022 10:25-0400 Body temperature 97.8 [degF] Adilia Buck Other [employer] Other 07-25-2022 10:25-0400 Body weight 78.93 kg Adilia Buck Other [employer] Other 07-25-2022 10:25-0400 Respiratory rate 18 /min Adilia Buck Other [employer] Other 07-25-2022 10:25-0400 SaO2% (BldA) [Mass fraction] 98 % Adilia Buck Other [employer] Other 04-06-2022 12:35-0400 Body height 149.86 cm Ava Madeleine Other [employer] Other 04-06-2022 12:35-0400 Body mass index (BMI) [Ratio] 35.95 kg/m2 Ava Madeleine Other [employer] Other 04-06-2022 12:35-0400 Body temperature 98.8 [degF] Ava Madeleine Other [employer] Other 04-06-2022 12:35-0400 Body weight 80.74 kg Ava Madeleine Other [employer] Other 05-16-2022 12:35-0400 Respiratory rate 18 /min Ava Salvador Other [employer] Other 04-06-2022 12:35-0400 SaO2% (BldA) [Mass fraction] 97 % Ava Salvador Other [employer] Other 09-09-2021 00:00-0400 90 1 Atul Frazier DO Work Phone: [facility] [address] [place] Work Phone: Comment on above: FSL 09-02-2021 10:49-0400 Heart rate 62 /min Atul Hyltondon DO Work Phone: [facility] DO Work Phone: 09-02-2021 10:46-0400 Body height 149.86 cm Atul Hyltondon DO Work Phone: [facility] [address] DO Work Phone: 09-02-2021 10:46-0400 Body mass index (BMI) [Ratio] 34.54 kg/m2 Atul Hyltondon DO Work Phone: [facility] 250 DO Work Phone: 09-02-2021 10:46-0400 Body surface area Derived from formula 1.73 m2 Atul Hyltondon DO Work Phone: [facility] [address] DO Work Phone: 09-02-2021 10:46-0400 Body weight 77.57 kg Atul Frazier DO Work Phone: [facility] [address] DO Work Phone: 09-02-2021 10:46-0400 Diastolic blood pressure 70 mm[Hg] Atul Frazier DO Work Phone: [facility] [address] DO Work Phone: 09-02-2021 10:46-0400 Systolic blood pressure 138 mm[Hg] Atul Frazier DO Work Phone: [facility] DO Work Phone: 03-07-2021 09:20-0400 BP Diastolic 53 mm[Hg] [facility] Work Phone: 03-07-2021 09:20-0400 BP Systolic 136 mm[Hg] [facility] Work Phone: 03-07-2021 09:20-0400 Pulse (Heart Rate) 81 /min [facility] Work Phone: 03-07-2021 09:20-0400 Pulse Oximetry 97 % Bobbisandra Castr [facility] Work Phone: 03-07-2021 09:20-0400 Respiratory Rate 21 /min [facility] Cast[facility] Work Phone: 03-07-2021 09:10-0400 Body Temperature 97.7 [degF] [facility] Work Phone: 03-07-2021 06:58-0400 BMI (Body Mass Index) 37.2 kg/m2 [facility] Cast[facility] Work Phone: 03-07-2021 06:58-0400 Body weight 80.74 kg Bobbi Castr [facility] Work Phone: 03-07-2021 06:58-0400 Height 147.3 cm Bobbi Castr [facility] Work Phone: 02-26-2021 15:57-0400 BMI (Body Mass Index) 37.2 kg/m2 [facility] Work Phone: 02-26-2021 15:57-0400 Body weight 80.[address] Work Phone: 02-26-2021 [phone] Height 147.[address] Work Phone: Encounters Encounter Date Encounter Type Care Provider Facility Start: 09-28-2024 End: 09-28-2024 Telephone encounter Ava Damon OD Work Phone: Ophthalmology Comment on above: Medication Problem Start: 08-29-2024 End: 08-29-[address] [facility] Facility:[facility] Start: 08-29-2024 End: 08-29-2024 Patient encounter procedure Ava Damon OD Work Phone: Ophthalmology Comment on above: Other chronic allerg ic conjunctivitis of both eyes (Primary Dx); Keratoconjunctivitis sicca of both eyes not specified as Sjogren's; Bilateral cornea scars; Pseudophakia of both eyes Start: 07-26-2024 End: 07-26-2024 ambulatory [facility] Start: 06-12-2024 End: 06-14-2024 Emergency department patient visit [facility] Start: 06-12-2024 End: 06-13-2024 ambulatory [facility] Start: 03-22-2024 End: 03-23-2024 ambulatory MATEO LICONA [facility] Start: 03-13-2024 End: 03-13-2024 ambulatory AVA DAMON Facility:[facility] Start: 03-13-2024 End: 03-13-2024 Patient encounter procedure Ava Damon OD Work Phone: Ophthalmology Comment on above: Diabetes mellitus ty pe 2 without retinopathy (HCC) (Primary Dx); Bilateral cornea scars; Keratoconjunctivitis sicca of both eyes not specified as Sjogren's; Other chronic allergic conjunctivitis of both eyes; Pseudophakia of both eyes Start: 02-23-2024 End: 02-23-2024 Subsequent hospital visit by physician Mateo Licona MD Work Phone: [facility] Comment on above: Canceled (Patient) Start: 02-21-2024 End: 03-22-2024 ambulatory [facility] Start: 02-02-2024 End: 02-03-2024 ambulatory [facility] Start: 02-02-2024 End: 02-02-2024 Subsequent hospital visit by physician Mateo Licona MD Work Phone: [facility] Comment on above: Lumbosacral spondylo sis without myelopathy (Primary Dx) Start: 01-21-2024 End: 02-21-2024 ambulatory [facility] Start: 12-28-2023 End: 12-28-2023 ambulatory Tayla Torres Other [employer] Other Start: 12-28-2023 Office outpatient vi sit 25 minutes Tayla Torres [facility] Start: 12-23-2023 End: 01-21-2024 ambulatory [facility] Start: 11-30-2023 End: 12-03-2023 ambulatory [facility] Start: 11-29-2023 End: 12-23-2023 ambulatory [facility] Start: 11-08-2023 End: 11-09-2023 ambulatory [facility] Start: 10-26-2023 End: 11-22-2023 ambulatory [facility] Start: 10-21-2023 End: 10-22-2023 ambulatory [facility] Start: 05-14-2023 ambulatory [facility] Facility:[facility] Start: 05-14-2023 Telephone encounter Concepcion Moore DO Work Phone: [facility] Comment on above: Medication Question Start: 05-14-2023 End: 05-14-2023 Patient encounter procedure Concepcion A Teresa DO Work Phone: [facility] Comment on above: Spinal stenosis of l umbar region, unspecified whether neurogenic claudication present (Primary Dx); Degenerative arthropathy of spinal facet joint; Myalgia; Postural imbalance Start: 05-11-2023 Telephone encounter Concepcion A Teresa DO Work Phone: [facility] Comment on above: Appointment Cancelle d Start: 05-08-2023 End: 05-08-2023 ambulatory Courtney Perez Other [employer] Other Start: 05-08-2023 Office outpatient vi sit 15 minutes Courtney Perez [facility] Start: 04-20-2023 End: 04-21-2023 ambulatory SMITH SHEIKH Facility:[facility] Start: 03-26-2023 End: 03-26-2023 Patient encounter procedure Blayne Haro OD Work Phone: Ophthalmology Comment on above: Left facial pain (Pr imary Dx); Keratoconjunctivitis sicca of both eyes not specified as Sjogren's; Bilateral cornea scars; Diabetes mellitus type 2 without retinopathy (HCC) Start: 03-09-2023 ambulatory MEÑO CARVER . Facility:[facility] Start: 02-23-2023 End: 02-23-2023 ambulatory SMITH SHEIKH Facility:[facility] Start: 02-11-2023 End: 02-12-[address] RONY ARCINIEGA . Facility:[facility] Start: 12-23-2022 Telephone encounter Ava Damon OD Work Phone: Ophthalmology Comment on above: Opened In Error Patient Question Start: 12-08-2022 End: 12-13-2022 ambulatory BOBBI NUNEZ [facility] Start: 12-08-2022 End: 12-12-2022 Subsequent hospital visit by physician Myles Tracey Rm 3 [facility] Pre-Admit Testing Start: 12-02-2022 End: 12-02-2022 Subsequent hospital visit by physician Smith Sheikh MD Work Phone: [facility] Comment on above: Chronic anemia; Weight [...] 07-25-2022 End: 07-25-2022 ambulatory CORBY STORM . [employer] Other Start: 07-01-2022 End: 07-02-[address] RONY ARCINIEGA . Facility:[facility] Start: 04-15-2022 Telephone encounter Ava Damon OD Work Phone: Ophthalmology Comment on above: Patient Question Start: 04-07-2022 End: 04-07-2022 Subsequent hospital visit by physician Smith Sheikh MD Work Phone: [facility] Comment on above: Other iron deficienc y anemia Start: 04-06-2022 End: 04-06-2022 ambulatory Ava Salvador Other [employer] Other Start: 04-06-2022 Office outpatient vi sit [...] of macula Start: 12-01-2021 End: 12-01-2021 ambulatory Alexandre Frazier Facility:[facility] Start: 09-19-2021 Chart Update Atul veloz DO Work Phone: -[facility] [address] [place] Work Phone: Start: 09-19-2021 [facility], Provider: Atul Frazier, Status: Pen, Time: 10:00 AM Atul Frazier DO Work Phone: -[facility] [address] [place] Work Phone: Start: 09-18-2021 AUDIT Atul veloz DO Work Phone: -[facility] [address] [place] Work Phone: Start: 09-11-2021 [facility], Provider: Atul Frazier, Status: Pen, Time: 12:00 PM Atul Frazier DO Work Phone: -[facility] [address] [place] Work Phone: Start: 09-09-2021 Chart Update Atul veloz DO Work Phone: -[facility] [address] [place] Work Phone: Start: 09-02-2021 Office consultation new/estab patient 80 min Atul Frazier DO Work Phone: [facility] DO Work Phone: Start: 09-02-2021 Patient encounter procedure Atul Frazier DO Work Phone: [facility] DO Work Phone: Start: 03-07-2021 End: 03-07-2021 Subsequent hospital visit by physician Bobbi Nunez Work Phone: [facility] Start: 03-03-2021 End: 03-03-2021 Subsequent hospital visit by physician Myles Covid Screening Schedule [facility] Covid Screening Comment on above: Pre-op testing (Prim bartolo Dx) Anemia, unspecified type Start: 02-26-2021 End: 03-02-2021 Subsequent hospital visit by physician Myles Pat Rm 4 CZ Pre-Admit Testing Procedures Date Procedure Procedure Detail Performing Clinician Start: 02-02-2024 Glucose blood reagent strip Mateo Licona MD Work Phone: Start: 12-02-2022 Comprehensive [...] Phone: Start: 03-03-2021 Cyanocobalamin vitamin b-12 Bobbi Nnuez Work Phone: Start: 03-03-2021 Iron binding capacity [...] 03-07-2026 Screening for malignant neoplasm of colon [employer] Start: 03-14-2025 End: 03-14-2025 Patient encounter procedure 03/14/2025 10:30 AM EDT Office Visit [facility] [address] [place] [address] Ava Damon, OD [address] [place] [address] 1 year diabetic eye exam Ophthalmology Comment on above: 1 year diabetic eye exam Start: 03-13-2025 Glaucoma screening Dilated Retinal Exam [facility] Start: 12-13-2024 Depression Screen Depression Screen [facility] [employer] Start: 07-23-2024 Covid-19 Vaccine ( season) Covid-19 Vaccine ( season) [facility] Start: 07-23-2024 Influenza vaccination [facility] Start: 07-06-2024 Hemoglobin A1c measurement HbA1C [facility] Start: 06-22-2024 Influenza vaccination Flu vaccine (Season Ended) [employer] Start: 04-10-2024 End: 04-10-2024 Patient encounter procedure 04/10/2024 2:30 PM EDT Office Visit [facility] [address] [place] [phone] Smith Sheikh MD [address] [place] [address] 3 month check [facility] Comment on above: 3 month check Start: 04-07-2024 Shingles vaccine (2 of 2) Shingles vaccine (2 of 2) [facility] [employer] Comment on above: Postponed from 09/17/2021 (Unavailable) Start: 04-03-2024 End: 04-03-2024 Patient encounter procedure 04/03/2024 11:15 AM EDT Office Visit [facility] [address] [place] [phone] Smith Sheikh MD [address] [place] [id number] 3 month f/u Smith Sheikh MD [facility] Comment on above: 3 month f/u Start: 03-29-2024 Pneumococcal 65+ years Vaccine (2 - PPSV23 or PCV20) Pneumococcal 65+ years Vaccine (2 - PPSV23 or PCV20) [facility] [employer] [facility] Comment on above: Postponed from 09/17/2021 (Unavailable) Start: 03-29-2024 Pneumococcal 65+ years Vaccine (2 of 2 - PPSV23 or PCV20) Pneumococcal 65+ years Vaccine (2 of 2 - PPSV23 or PCV20) [facility] [employer] [facility] Comment on above: Postponed from 09/17/2021 (Unavailable) Start: 03-10-2024 Hepatitis C antibody, confirmatory test DILATED RETINAL EXAM [facility] Start: 12-02-2023 GFR test (Diabetes, CKD 3-4, OR last GFR 15-59) GFR test (Diabetes, CKD 3-4, OR last GFR 15-59) [facility] Start: 11-22-2023 Advance Directive Discussion Advance Directive Discussion [facility] Start: 11-22-2023 Behavioral Health Screening Behavioral Health Screening [facility] Start: 10-21-2023 Depression Screen Depression Screen [facility] Start: 10-21-2023 Hemoglobin A1c measurement A1C test (Diabetic or Prediabetic) [facility] Start: 08-29-2023 Lipid panel Lipids [facility] Start: 07-23-2023 Covid-19 Vaccine ( season) Covid-19 Vaccine ( season) [facility] Start: 07-23-2023 COVID-19 Vaccine ( season) COVID-19 Vaccine ( season) [facility] Start: 06-22-2023 Influenza vaccination Flu vaccine (#1) [facility] Start: 04-07-2023 Screening for malignant neoplasm of breast Breast cancer screen [facility] Start: 02-19-2023 Hepatitis C antibody, confirmatory test DILATED RETINAL EXAM [facility] Start: 01-20-2023 End: 01-20-2023 Patient encounter procedure 01/20/2023 Office Visit Family Medicine Smith Sheikh MD [address] [place] [id number] Smith Sheikh MD [facility] Start: 2023 RSV Vaccine (1 - 1-dose 75+ series) RSV Vaccine (1 - 1-dose 75+ series) [facility] Start: 12-22-2022 End: 12-22-2022 Admission to same day surgery center 12/22/2022 Surgery Endoscopy Bobbi Nunez MD [address], [address] [address] EGD BIOPSY [facility] Comment on above: EGD BIOPSY Start: 12-22-2022 End: 12-22-2022 Egd transoral biopsy single/multiple EGD BIOPSY Gastroesophageal reflux disease without esophagitis 12/22/2022 8:00 AM EST [facility] Start: 12-22-2022 Subsequent hospital visit by physician 12/22/2022 Hospital Encounter Endoscopy Bobbi Nunez MD [address], [address] [address] [facility] Start: 12-08-2022 End: 12-08-2022 Patient encounter procedure 12/08/2022 Appointment Pre-Admission Testing [facility] Start: 11-22-2022 ADVANCE DIRECTIVE DISCUSSION ADVANCE DIRECTIVE DISCUSSION [facility] Start: 11-22-2022 DEPRESSION ASSESSMENT DEPRESSION ASSESSMENT [facility] Start: 11-03-2022 Depression Screen Depression Screen [facility] Start: 08-30-2022 Hemoglobin A1c measurement A1C test (Diabetic or Prediabetic) [facility] Start: 07-23-2022 Influenza vaccination [facility] Start: 07-23-2022 Pneumococcal 65+ years Vaccine (2 - PPSV23 if available, else PCV20) Pneumococcal 65+ years Vaccine (2 - PPSV23 if available, else PCV20) [facility] Start: 07-23-2022 Pneumococcal 65+ years Vaccine (2 - PPSV23 or PCV20) Pneumococcal 65+ years Vaccine (2 - PPSV23 or PCV20) [facility] Start: 05-13-2022 End: 05-13-2022 Patient encounter procedure 05/13/2022 Office Visit Gastroenterology Bobbi Nunez MD [address] [address] [facility] G[facility] Start: 04-22-2022 End: 04-22-2022 Patient encounter procedure 04/22/2022 Office Visit Family Medicine Smith Sheikh MD [address] [place], [place] [id number] Smith Sheikh MD [facility] Start: 04-07-2022 Mammography MAMMOGRAM [facility] Start: 02-14-2022 Screening for malignant neoplasm of colon FIT/FOBT: Average risk [place] [employer] Start: 02-05-2022 Hepatitis C screening Hepatitis C screen [facility] Phone: Comment on above: Postponed from 1948 (Patient Refus ed) Start: 01-24-2022 COVID-19 VACCINE (4 - Booster for Moderna series) COVID-19 VACCINE (4 - Booster for Moderna series) [facility] Start: 01-22-2022 Creatinine measurement Creatinine monitoring [facility] Phone: Start: 01-22-2022 HbA1c (Bld) [Mass fraction] A1C test (Diabetic or Prediabetic) [employer] Phone: Start: 01-22-2022 Lipid panel [place] [employer] Start: 01-22-2022 Potassium monitoring Potassium monitoring [employer] Phone: Start: 01-22-2022 TSH Qn TSH testing [employer] Phone: Start: 11-22-2021 ADVANCE DIRECTIVE DISCUSSION ADVANCE DIRECTIVE DISCUSSION [facility] Start: 11-21-2021 COVID-19 VACCINE (4 - Booster for Moderna series) COVID-19 VACCINE (4 - Booster for Moderna series) [facility] Start: 11-21-2021 COVID-19 VACCINE (5 - Booster for Moderna series) COVID-19 VACCINE (5 - Booster for Moderna series) [facility] Start: 11-21-2021 COVID-19 Vaccine (5 - Booster) COVID-19 Vaccine (5 - Booster) [facility] Start: 10-30-2021 [facility], Provider: Atul Frazier, Status: Pen, Time: 10:10 AM [facility], Provider: Atul Frazier, Status: Pen, Time: 10:10 AM [facility] DO Work Phone: Start: 09-17-2021 Pneumococcal Vaccine: 65+ (2 of 2 - PPSV23 or PCV20) Pneumococcal Vaccine: 65+ (2 of 2 - PPSV23 or PCV20) [facility] Start: 09-17-2021 Shingles vaccine (2 of 2) Shingles vaccine (2 of 2) [facility] Start: 09-17-2021 Shingrix Vaccine (2 of 2) Shingrix Vaccine (2 of 2) [facility] Start: 09-11-2021 [facility]: Atul Frazier, Status: Pen, Time: 12:00 PM [facility], Provider: Atul Frazier, Status: Pen, Time: 12:00 PM [facility] 250 DO Work Phone: Start: 08-28-2021 HbA1c (Bld) [Mass fraction] A1C test (Diabetic or Prediabetic) [facility] Phone: Start: 08-23-2021 DTaP/Tdap/Td vaccine (1 - Tdap) DTaP/Tdap/Td vaccine (1 - Tdap) [employer] Phone: Comment on above: Postponed from 1967 (Not Indicated ) Start: 08-23-2021 Pneumococcal 65+ years Vaccine (1 of 1 - PPSV23) Pneumococcal 65+ years Vaccine (1 of 1 - PPSV23) [employer] Phone: Comment on above: Postponed from 2013 (Not Indicated ) Start: 08-23-2021 Shingles Vaccine (1 of 2) Shingles Vaccine (1 of 2) [employer] Phone: Comment on above: Postponed from 1998 (Not Indicated ) Start: 07-23-2021 Influenza vaccination INFLUENZA (#1) [facility] Start: 03-31-2021 End: 03-31-2021 Office Visit 03/31/2021 Office Visit Gastroenterology Bobbi Nunez MD [address] [address] [phone] [facility] Gastro[facility] Start: 03-17-2021 End: 03-17-2021 Office Visit 03/17/2021 Office Visit Family Medicine Smith Sheikh MD [address] [place] [address] [phone] Smith Sheikh MD [facility] Start: 03-07-2021 End: 03-07-2021 Hospital Encounter [facility] Comment on above: EGD Start: 03-03-2021 End: 02-28-2022 COVID-19 [employer] Phone: Comment on above: Expected: 03/03/2021, Expires: 2 Once for 1 Occurrenc es starting 03/03/2021 until 03/03/2021 Start: 03-03-2021 Hospital Encounter 03/03/2021 Hospital Encounter Lab Pre-op testing (Primary Dx) [facility] Screening Comment on above: Pre-op testing (Primary Dx) Start: 02-26-2021 Hemoglobin A1c measurement HbA1C [facility] Start: 02-26-2021 Hemoglobin A1c/Hemoglobin.total in Blood HBA1C [facility] Start: 12-25-2018 Screening for malignant neoplasm of breast Breast cancer screen [employer] Phone: Start: 08-21-2017 Screening for malignant neoplasm of colon Colon Cancer Screen FIT/FOBT [employer] Phone: Start: 07-31-2017 Creatinine measurement Creatinine monitoring [employer] Phone: Start: 07-31-2017 Lipid panel Lipid screen [employer] Phone: Start: 07-31-2017 Potassium monitoring Potassium monitoring [employer] Phone: Start: 07-31-2017 TSH Qn TSH testing [employer] Phone: Start: 11-19-2015 Diabetic foot examination Diabetic foot [facility] Start: 11-19-2015 Diabetic retinal exam Diabetic retinal exam [facility] Start: 11-19-2015 Glaucoma screening Diabetic retinal exam [facility] [employer] Start: 2013 BONE DENSITY BONE DENSITY [facility] Start: 2013 PNEUMOCOCCAL: 65+ (1 - PCV) PNEUMOCOCCAL: 65+ (1 - PCV) [facility] Start: 2013 PNEUMOVAX AGE 65 AND OVER WITH 5YR LOOKBACK (#1) PNEUMOVAX AGE 65 AND OVER WITH 5YR LOOKBACK (#1) [facility] Start: 2013 Screening for osteoporosis Bone Density Screening [facility] Start: 2008 Respiratory Syncytial Virus (RSV) or age 60 yrs+ (1 - 1-dose 60+ series) Respiratory Syncytial Virus (RSV) or age 60 yrs+ (1 - 1-dose 60+ series) [facility] [employer] Start: 2008 RSV Vaccine (1 - 1-dose 60+ series) RSV Vaccine (1 - 1-dose 60+ series) [facility] Start: 1998 SHINGRIX VACCINE (1 of 2) SHINGRIX VACCINE (1 of 2) [facility] Start: 1993 COLOGUARD (FIT-DNA) COLOGUARD (FIT-DNA) [facility] Start: 1993 Colonoscopy COLONOSCOPY [facility] Start: 1993 COLORECTAL CANCER SCREENING COLORECTAL CANCER SCREENING [facility] Start: [address] COLONOGRAPHY [facility] Start: 1993 FECAL OCCULT BLOOD FECAL OCCULT BLOOD [facility] Start: 1993 Screening for malignant neoplasm of colon [facility] Start: 1993 SIGMOIDOSCOPY SIGMOIDOSCOPY [facility] Start: 1967 DTaP/Tdap/Td vaccine (1 - Tdap) DTaP/Tdap/Td vaccine (1 - Tdap) [facility] Start: 1967 Urine microalbumin profile [facility] Start: 1966 ANNUAL PCP TEAM CHRONIC DISEASE VISIT ANNUAL PCP TEAM CHRONIC DISEASE VISIT [facility] Start: 1966 Anxiety Screening Anxiety Screening [facility] Start: 1966 Depression Screening Depression Screening [facility] Start: 1966 Diabetic microalbuminuria test Diabetic microalbuminuria test [facility] [employer] Phone: Start: 1966 Hepatitis B surface antibody level LDL CHOLESTEROL [facility] Start: 1966 HEPATITIS C SCREENING HEPATITIS C SCREENING [facility] Start: 1966 Hepatitis C screening [facility] Start: 1966 Urine screening for protein [facility] Start: 1960 Adult depression screening assessment DEPRESSION SCREENING [facility] Start: 1958 3 comp foot exam completed DIABETIC FOOT EXAM [facility] Start: 1958 Diabetic foot examination Diabetic Foot Exam [facility] Start: 1958 Hepatitis B screening URINE ALBUMIN:CREATININE RATIO [facility] Start: 1954 PNEUMOCOCCAL: 65+ (1 - PCV) PNEUMOCOCCAL: 65+ (1 - PCV) [facility] Start: 1948 Annual Wellness Visit (AWV) Annual Wellness Visit (AWV) [place] [employer] COVID-19 COVID-19 Lab Rou cody 03/03/2021 1:21 PM EDT [facility] Phone: Oxygen therapy [[facility] Data [facility]] Initiate Oxygen Therapy Protocol Respiratory Care Routine Daily until discontinued starting 03/07/2021 [employer] Phone: Comment on above: Daily until discontinued starting 2020 Surgical Pathology Surgical Path ology Lab Routine Release Upon Ordering for 1 Occurrences starting 03/07/2021 [employer] Phone: Comment on above: Release Upon Ordering for 1 Occurrences starting 03/07/2021 End: 03-03-2021 Tissue Transglutaminase, IgA Tissue Transglutaminase, IgA Lab Routine Anemia, unspecified type 1 Occurrences starting 03/03/2021 until 03/03/2021 [employer] Work Phone: Comment on above: 1 Occurrences starting 03/03/2021 until 03/03/2021 Tissue Transglutamin ase, IgA Tissue Transglutaminase, IgA Lab Routine Anemia, unspecified type 03/03/2021 10:40 AM EDT [facility]: End: 12-02-2022 Tissue Transglutaminase, IgA [facility] Work Phone: Comment on above: 1 Occurrences starting 12/02/2022 until 12/02/2022 [facility] Immunizations Immunization Date Immunization Notes Care Provider Justus pitts 08-28-2022 influenza, high dose seasonal, preservative-free Smith Sheikh MD Work Phone: [facility] 08-28-2022 influenza virus vaccine, unspecified formulation Ava Damon OD Work Phone: [facility] 09-26-2021 COVID-19, PFIZER PUR PLE top, DILUTE for use, (age 12 y+), 30mcg/0.3mL Mateo Licona MD Work Phone: [facility] 07-23-2021 pneumococcal conjuga te vaccine, 13 valent Atul Frazier DO Work Phone: [facility] 07-23-2021 zoster vaccine recombinant Atul Frazier DO Work Phone: [facility] 250 DO Work Phone: 02-23-2021 COVID-19, Moderna, Primary or Immunocompromised, PF, 100mcg/0.5mL Smith Sheikh MD Work Phone: [facility] Work Phone: 02-20-2021 Moderna COVID-19 Vaccine 100 MCG/0.5ML Intramuscular Suspension Atul Frazier DO Work Phone: [facility] 250 DO Work Phone: 01-31-2021 COVID-19, Moderna, P F, 100mcg/0.5mL Stcz 4 [employer] Work Phone: 01-23-2021 Moderna COVID-19 Vaccine 100 MCG/0.5ML Intramuscular Suspension Atul Frazier DO Work Phone: [facility] 250 DO Work Phone: 10-26-2020 Influenza, High-dose , Quadv, 65 yrs +, IM (Fluzone) Stcz 4 [employer] Work Phone: Payers Date Payer Category Payer Self-pay 2017 Medicare HUMANA MEDICARE HUMANA MEDICARE PPO [id number] 2017-Present [phone] [address] [address] [place] [address] PPO [id number] 2017 Medicare HUMANA MEDICARE HUMANA MEDICARE PPO [id number] 2017-Present [phone] [address] [place] [address] PPO [id number] 1959 Private Health Insurance [id number] .[id number] 1948 Unknown [id number] 2.16.840.1.099614.3.579.2 .593 1948 Unknown [id number] 2.16.840.1.840740.3.579.2 .593 1948 Unknown [id number] 2.16.840.1.650906.3.579.2 .593 1948 Unknown [id number] 2.16.840.1.909039.3.579.2 .593 1948 Unknown [id number] 2.16.840.1.519015.3.579.2 .593 1948 Unknown [id number] 2.16.840.1.530203.3.579.2 .593 1948 Unknown [id number] 2.16.840.1.534425.3.579.2 .593 1948 Unknown [id number] 2.16.840.1.421533.3.579.2 .593 1948 Unknown [id number] 2.16.840.1.469740.3.579.2 .593 1948 Unknown [id number] 2.16.840.1.125649.3.579.2 .593 1948 Unknown [id number] 2.16.840.1.711466.3.579.2 .593 1948 Unknown [id number] 2.16.840.1.801830.3.579.2 .176 1948 Unknown [id number] 2.16.840.1.608607.3.579.2 .176 1948 Unknown [id number] 2.16.840.1.976198.3.579.2 .176 1948 Unknown [id number] 2.16.840.1.667048.3.579.2 .175 1948 Unknown [id number] 2.16.840.1.197231.3.579.2 .175 1948 Unknown [id number] 2.16.840.1.470171.3.579.2 .175 1948 Unknown [id number] 2.16.840.1.562988.3.579.2 .175 1948 Unknown [id number] 2.16.840.1.325719.3.579.2 .175 1948 Unknown [id number] 2.16.840.1.944052.3.579.2 .175 1948 Unknown [id number] 2.16.840.1.767002.3.579.2 .1286 1948 Unknown [id number] 2.16.840.1.397474.3.579.2 .1286 1948 Unknown [id number] 2.16.840.1.740570.3.579.2 .128 1948 Unknown [id number] 2.16.840.1.848008.3.579.2 .1286 1948 Unknown [id number] 2.16.840.1.411346.3.579.2 .128 1948 Unknown [id number] 2.16.840.1.386874.3.579.2 .1286 1948 Unknown [id number] 2.16.840.1.735190.3.579.2 .1285 1948 Unknown [id number] 2.16.840.1.105537.3.579.2 .1244 Unknown HUMANA GOLD CHOICE Unknown [id number] 2.16.840.1.621434.3.579.2 .531 Social History Date Type Detail Facility Start: 02-26-2021 End: 03-10-2023 Tobacco smoking status GAIS Never smoker [facility] Start: 02-26-2021 End: 03-10-2023 Tobacco use and exposure Never used [employer] Phone: Start: 02-26-2021 End: 02-02-2024 Alcohol intake Current non-drinker of alcohol (finding) [employer] Phone: Start: 02-05-2021 History SDOH Social Connections Phone 5 [employer] Phone: Start: 02-05-2021 End: 02-19-2022 History SDOH Social Connections Get Together 1 [employer] Phone: Start: 02-05-2021 History SDOH Social Connections Baptism 3 [employer] Phone: Start: 02-05-2021 History SDOH Physical Activity DPW 0 [employer] Work Phone: Start: 02-05-2021 History SDOH Education 12 [employer] Work Phone: Start: 02-05-2021 History SDOH IPV Fear 2 [employer] Work Phone: Start: 05-19-2013 Alcohol Comment never drank [employer] Work Phone: Start: 1950 Sex Assigned At Not on file [employer] Work Phone: Start: 01-23-2022 End: 12-08-2022 Exposure to SARS-CoV-2 (event) Not sure [employer] Work Phone: Start: 11-03-2021 End: 03-26-2023 No alcohol use No alcohol use [facility] 250 DO Work Phone: Start: 02-19-2022 End: 08-29-2024 Alcohol intake Lifetime non-drinker (finding) [facility] Start: 02-05-2021 End: 03-26-2023 Sex Assigned At [facility] [employer] Other Start: 08-28-2022 History SDOH Financial 4 [employer] Work Phone: Do you belong to any clubs or organizations such as christianity groups, unions, fraternal or athletic groups, or school groups? Yes [employer] Are you now , , , , never or living with a partner? [employer] How hard is it for y ou to pay for the very basics like food, housing, medical care, and heating Not hard at all [employer] Do you feel stress - tense, restless, nervous, or anxious, or unable to sleep at night because your mind is troubled all the time - these days [OSQ] Not at all [employer] (I/We) worried wheth er (my/our) food would run out before (I/we) got money to buy more. Never true [employer] At any time in the p ast 12 months, were you homeless or living in fpc [including now]? No [facility] Procedure Code Equipment Code Equipment Origin al Text Equipment Identifier Dates 100 each by In V itro route 2 times daily As needed. [id number] Start: 02-24-2018 1 kit by Does no t apply route 2 times daily [id number] Start: 02-24-2018 Patient test blo od sugar BID [id number] Start: 02-24-2018 End: 12-08-2022 Lens Iol +21.5 D iop Acrsf Iq - [id number] Start: 01-10-2014 100 each by In V itro route 2 times daily As needed. [id number] Start: 07-28-2022 Clinical Notes 11-03-2010 to 09-28-2024 Telephone Encounter - Astrid Latham - 09/28/2024 8:54 AM ESTTelephone Encounter - Astrid Latham - 09/28/2024 8:54 AM Ava Hastings, OD - 08/29/2024 3:24 PM EDTPatient Instructions Note Date & Type Note Facility 09-28-2024 Telephone encounter Note Pt is requesting a new eye drop prescription or another alternative due to the rx that was given being to expensive. Pt states they are 25 dollars and too much. Would like something else. Would like something sent to [facility] on [address] [facility] 09-28-2024 Miscellaneous Notes Pt is requesting a new eye drop prescription or another alternative due to the rx that was given being to expensive. Pt states they are 25 dollars and too much. Would like something else. Would like something sent to [facility] in [place] on [address] documented in this encounter [facility] 08-29-2024 Note HNO ID: [id number] Author: AVA DAMON OD Service: ? Author Type: SHEAR SCRAPMAN Type: Progress Notes Filed: 08/29/2024 15:26 Note [...] Damon, OD August 29, 2024 3:24 PM [facility] 08-29-2024 History of Present illness Narrative ASSESSMENT/PLAN: [...] 2024 3:24 PM documented in this encounter [facility] 08-29-2024 Instructions Ava Damon OD - 08/29/2024 11:44 AM EDT Short term: start maxitrol drops (steroid) 3 times daily in both eyes for 5 days, then stop. This should help you feel better quickly care home: also start allergy drops (either Rx, or OTC Pataday, Zaditor) twice a day. Go back to [employer] for artificial tears documented in this encounter [facility] 06-12-2024 Note XR CHEST 2 VWS Procedure: Chest x-ray performed Number of views:2 History:Chest pain Covid positive Comparison:01/20/2020 Findings: The heart and lungs show no acute findings, and the mediastinum and brennen are grossly negative . Impression: 1. No acute change. Finalized by Marvin Ackerman MD on 06/12/2024 9:29 PM [facility] 03-13-2024 Instructions Ava Damon OD - 03/13/2024 11:10 AM EDT Dry eye is likely causing the blurred vision in the morning, and blurriness that gets worse with prolonged reading. Start using artificial tears 2-3 times daily, when needed. Here are some good auti-glt-xfwzoxi brands: Systane, Refresh, TheraTears Restart the pataday allergy drops in both eyes every morning during allergy seasons documented in this encounter [facility] 03-13-2024 Note HNO ID: [id number] Author: AVA DAMON OD Service: ? Author Type: SHEAR SCRAPMAN Type: Progress Notes Filed: 03/13/2024 11:12 Note [...] Damon, MAYLIN March 13, 2024 11:08 AM [facility] 03-13-2024 History of Present illness Narrative ASSESSMENT/PLAN: [...] states cannot afford Rx glasses. Ava Damon, MAYLIN I have confirmed and [...] Damon OD March 13, 2024 11:08 AM documented in this encounter [facility] 02-23-2024 History of Present illness Narrative Pt called to cancel appt she is ill will call office to reschedule. documented in this encounter [facility] 02-23-2024 Hospital Discharge instructions Chichi Castrejon RN [...] may use ice to reduce soreness. Call [facility] at [phone] if you experience: Fever, chills or temperature over 100 Vomiting, Headache, persistent stiff neck, nausea, blurred vision Difficulty in urinating or unable to urinate with 8 hours Increase in weakness, numbness or loss of function Increased redness, swelling or drainage at the injection site documented in this encounter [facility] 02-02-2024 Hospital Discharge instructions Chichi Castrejon RN [...] Please complete pain diary as instructed. Call [facility] at [phone] if you experience: Fever, chills or temperature over 100 Vomiting, Headache, persistent stiff neck, nausea, blurred vision Difficulty in urinating or unable to urinate with 8 hours Increase in weakness, numbness or loss of function Increased redness, swelling or drainage at the injection site documented in this encounter [facility] 12-28-2023 Evaluation note Encounter Date Diagnosis [...] understanding and is agreeable to treatment plan [employer] Other 06-23-2023 NoteHNO ID: [id number] Author: RT Brandyn(R) Service: Radiology Author Type: Knitting Machine Fixer Head Type: Progress Notes Filed: 05/14/2023 1:06 PM [...] PERIPHERAL IV DATA: Not applicable SIGNED BY: RT Brandyn(R) May 14, 2023 1:06 [id number] Miscellaneous Notes* Telephone Encounter - Dominique Meneses LPN - 05/14/2023 1:24 PM EDT Pt came back to the front end engineer requesting tramadol Spoke to pt and advised Dr Moore does not prescribe narcotics for chronic pain and will need to secure the tramadol from the prior prescriber-also noted in office visit note Pt stated the prescriber did not want to see her anymore Advised pt to see if another provider/PCP would possibly consider prescribing the tramadol Pt verbalized understanding [facility] History of Present illness Narrative* Concepcion Moore [...] supervised home exercise program (HEP): No 4. Lan Administrator: No 5. What are your limitations: Standing [...] not taking: No sig reported) MV with Hgm-Jbqpaxux-Qyevee 0.4 mg-300 mcg- 250 mcg tab Take [...] Past Histories independently gathered by the clinical senior safety support manager and the remaining scribed note accurately describes [...] / films reviewed with patient. Lumbar Xrays:06/08/2012 Merc[facility]ir[facility]: Reports to be scanned into EMR or [...] surgical care. No neurological deficits noted during [facility] exam. PT - Core stabilization [...] which included preparing to see the patient, zobt-qg-ptop patient care, completing clinical documentation, obtaining and/or [...] forwarded to consulting/requesting physician. Concepcion Moore DO, MBA documented in this encounterOhio[facility]23 Miscellaneous Notes* Telephone Encounter - Frank Pillai - 05/11/2023 9:26 AM EDT 05/11/2023 LVM documented in this encounterOhio[facility]06-17-[facility]23 Evaluation note* Encounter Date Diagnosis Assessment Notes [...] fever. Patient verbalized understanding of treatment plan. [employer] Other 05-30-2023 NoteCONSULTATION CONSULTATION DATE: 04/20/2023 TO: [facility] HISTORY: Patient presents today complaining of 5-7/10 [...] that she consider follow up with the [facility], as the patient is requesting the same. In the interim, I have asked her to discontinue her baclofen secondary to ineffectiveness. To continue with the tramadol until she follows up with her new physician and primary caregivers for pain management at the [facility], and we will facilitate that referral. As part of providing excellent, safe, comprehensive care, the following was completed at our patient's visit: 1. A medication reconciliation and review to ensure accurate knowledge of current/active medications, including asking our patients to inform us about any xjzd-amp-hibmblr medications or herbal remedies/nutritional supplements/alternative remedies. 2. [...] treatment options with their primary care provider.[facility] [id number] History of Present illness Narrative* Blayne Haro, [...] all of its relevant components. Blayne Haro, OD March 26, 2023 3:00 PM documented in this encounterOhio[facility]03-23-2023 NoteCONSULTATION CONSULTATION DATE: 02/11/2023 TO: [facility] CHIEF COMPLAINT: Includes right sided hip pain, [...] of the iliohypogastric nerve under fluoroscopic guidance.[facility] 12-23-2022 Miscellaneous Notes* Telephone Encounter - Yaquelin Wang - 12/23/2022 3:30 PM EST Called patient and told her about the recommendation to see Dr. Childers in [place]. * Telephone Encounter - Yaquelin Wang - 12/23/2022 9:22 AM EST Patient called in requesting eye drops for her right eye. She states that she is having discharge from the eye. She says that she can smell infection. She is scheduled to see SE in February. The eye is watery and has a lot of drainage. If prescription is processed she would like it to go to the [facility] on [address] in [place]. Please advise. documented in this encounterOhio[facility]01-17-[facility] History of Present illness Narrative* Shanna Woody [...] lotion, powder, jewelry, piercings, perfume, makeup, nail mohawk, hair accessories, or hair spray on the day of surgery. Wear loose comfortable clothing. Leave your valuables at home. Bring a storage case for any glasses/contacts. An adult who is responsible for you MUST drive you home and should be with you for the first 24 hours after surgery. The Day of Surgery: Arrive at [facility] at the time directed by your surgeon and check in at the desk. If you have a living will or healthcare power of state attorney, please bring a copy. You will be taken to the pre-op holding area where you will be prepared for surgery. A physical assessment will be performed by a nurse practitioner or senior data warehouse developer. Your IV will be started and you [...] and understanding verbalized. [facility] [employer] Work Phone: 1(846) 836-989212-20-2022 NoteCONSULTATION CONSULTATION DATE: 11/10/2022 CHIEF COMPLAINT: Low [...] mg b.i.d. will be refilled for her.[facility] [id number] Evaluation note* Encounter Date Diagnosis Assessment Notes [...] the ER for worsening symptoms or concerns. [employer] 08-10-2022 NoteCONSULTATION CONSULTATION DATE: 07/01/2022 This is a pleasant 72-year-old female returning to the clinic for a 3-month follow-up for her chronic lower back pain and right hip pain. Today she was complaining of right buttocks pain and hip pain that she feels is affecting her ambulation. She rates it 7 out of 10 and describes it as sharp. 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 Please advise. documented in this encounterOhio[facility]05-16-2022 Evaluation note* Encounter Date Diagnosis Assessment Notes [...] Patient care instructions given in writting by [facility] At Home document. [employer] 03-31-2022 History of Present illness Narrative* Ava Damon MAYLIN - 02/19/2022 11:51 AM EDT ASSESSMENT/PLAN: 1. [...] 19, 2022 11:51 AM documented in this encounterOhio[facility]09-12-2021 Chief complaint Narrative - Reported* MARAH SILVA [...] a history of prior heart catheterization in [place] remotely that revealed normal coronary arteries. I [...] and also offered conservative based medical therapies. -[facility] 250 DO Work Phone: 1(301) 561-579212-13-2010 History of Past illness Narrative* Problem Noted Date Resolved Date Senile cataract, unspecified 11/03/2010 documented as of this encounter (statuses as of 02/19/2022) [facility]12-13-2010 History of Past illness Narrative* Problem Noted Date Resolved Date Senile cataract, unspecified 11/03/2010 documented as of this encounter (statuses as of 04/15/2022) [facility]12-13-2010 History of Past illness Narrative* Problem Noted Date Resolved Date Senile cataract, unspecified 11/03/2010 documented as of this encounter (statuses as of 12/23/2022) [facility]12-13-2010 History of Past illness Narrative* Problem Noted Date Resolved Date Senile cataract, unspecified 11/03/2010 documented as of this encounter (statuses as of 03/29/2023) [place] [address]-13-2010 History of Past illness Narrative* Problem Noted Date Resolved Date Senile cataract, unspecified 11/03/2010 documented as of this encounter (statuses as of 05/11/2023) [place] [address]-13-2010 History of Past illness Narrative* Problem Noted Date Resolved Date Senile cataract, unspecified 11/03/2010 documented as of this encounter (statuses as of 05/14/2023) [place] [address]-13-2010 History of Past illness Narrative* Problem Noted Date Resolved Date Senile cataract, unspecified 11/03/2010 documented as of this encounter (statuses as of 05/14/2023) [facility] complaint Narrative - Johnathon SILVA is being seen for a consultation for abnormal test(s) results.-[facility] [employer] Work Phone: Evaluation note* Diagnosis Diabetes mellitus [...] Other retinal disorders documented in this encounter [facility] note* Diagnosis Other iron deficiency anemia documented in this encounter [employer] Phone: evaluation note* Diagnosis Chronic anemia Anemia, unspecified Weight loss Loss of weight Iron deficiency anemia secondary to inadequate dietary iron intake Gastroesophageal reflux disease without esophagitis Esophageal reflux documented in this encounter [employer] Phone: evaluation note* Diagnosis Left facial pain- Primary Headache Keratoconjunctivitis sicca of both eyes not specified as Sjogren's Keratoconjunctivitis sicca, not specified as Sjogren's Bilateral cornea scars Corneal opacity, unspecified Diabetes mellitus type 2 without retinopathy (HCC) Type II or unspecified type diabetes mellitus without mention of complication, not stated as uncontrolled documented in this encounter [facility]* Diagnosis Spinal stenosis of lumbar region, unspecified whether neurogenic claudication present- Primary Degenerative arthropathy of spinal facet joint Spondylosis of unspecified site without mention of myelopathy Myalgia Mylagia and myositis, unspecified Postural imbalance Disorders of soft tissue, unspecified documented in this [facility]* Diagnosis Lumbosacral spondylosis without myelopathy- Primary documented in this encounter [place] note* Diagnosis Diabetes mellitus type 2 without [...] by other means documented in this encounter [facility]* Diagnosis Other chronic allergic conjunctivitis of both eyes- Primary Keratoconjunctivitis sicca of both eyes not specified as Sjogren's Keratoconjunctivitis sicca, not specified as Sjogren's Bilateral cornea scars Corneal opacity, unspecified Pseudophakia of both eyes Lens replaced by other means documented in this encounter [facility] general Narrative - Reported* Type Description Date Medical History diabetes mellitus Medical History Hypothyroidism Medical History osteoporosis Medical History Chronic obstructive pulmonary di sease Medical History Hearing loss Medical History asthma Surgical History cholecystectomy Surgical History partial hysterectomy Surgical History tonsillectomy Surgical History colonoscopy Surgical History ear surgery Surgical History back ablasion Hospitalization History See Above [employer] Other History general Narrative - Reported* Type Description Date Medical History diabetes mellitus Medical History Hypothyroidism Medical History osteoporosis Medical History Chronic obstructive pulmonary di sease Medical History Hearing loss Medical History asthma Surgical History cholecystectomy Surgical History partial hysterectomy Surgical History tonsillectomy Surgical History colonoscopy Surgical History ear surgery Surgical History back ablasion Hospitalization History See Above Hospitalization History blood pressure elevated [employer] Other Reason for referral (narrative)* - Pending Review Specialty Diagnoses / Procedures Referred By Bernardino mcmahan Referred To Contact Physical Therapy Diagnoses Spinal stenosis of lumbar region, unspecified whether neurogenic claudication present Degenerative arthropathy of spinal facet joint Myalgia Postural imbalance Procedures CONSULT [place] [address] [place] [address] Referral ID Status Reason Start Date Expiration Date V isits Requested Visits Authorized [id number] Pending Review 05/14/2023 08/12/2023 1 1 * Diagnostic Procedure Only (Routine) - Closed Specialty Diagnoses / Procedures Referred By Bernardino mcmahan Referred To Contact XR IMAGING Diagnoses Spinal stenosis of lumbar region, unspecified whether neurogenic claudication present Degenerative arthropathy of spinal facet joint Myalgia Postural imbalance Procedures XR PELVIS 1V AP RADIOLOGIC EXAMINATION PELVIS 1/[place] [address] [place] [address] Xr Imaging Referral ID Status Reason Start Date Expiration Date V isits Requested Visits Authorized [id number] Closed Auto-Generate d Referral 05/14/2023 06/12/2024 1 1 * Diagnostic Procedure Only (Routine) - Closed Specialty Diagnoses / Procedures Referred By Contac t Referred To Contact XR IMAGING Diagnoses Spinal stenosis of lumbar region, unspecified whether neurogenic claudication present Degenerative arthropathy of spinal facet joint Myalgia Postural imbalance Procedures XR LUMBAR GENERAL 3V AP/LAT/L5-S1 RADEX SPINE LUMBOSACRAL 2/3 [place] [address] [place] [address] Xr Imaging Referral ID Status Reason Start Date Expiration Date V isits Requested Visits Authorized [id number] Closed Auto-Generate d Referral 05/14/2023 06/12/2024 1 1 [facility] History of Present Illness * Gay Lin [...] lotion, powder, jewelry, piercings, perfume, makeup, nail mohawk, hair accessories, or hair spray on the day of surgery. Wear loose comfortable clothing. 4. Leave your valuables at home. Bring a storage case for any glasses/contacts. 5. An adult who is responsible for you MUST drive you home and should be with you for the first 24 hours after surgery. The Day of Surgery: Arrive at [facility] at the time directed by your surgeon and check in at the desk. If you have a living will or healthcare power of state attorney, please bring a copy. You will be taken to the pre-op holding area where you will be prepared for surgery. A physical assessment will be performed by a nurse practitioner or senior data warehouse developer. 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 Only take wcao-ajh-gwxapcl or prescription medicines for pain, discomfort, or [...] 11/08/2006 Document Revised: 05/09/2013 Document Reviewed: 03/08/2013 [employer] Patient Information 2013 [employer]. Colonoscopy: What to Expect at Home Your [...] Where can you learn more? Go to [email or web address] and sign in to your NowPublic account. Enter E264 in the Search Health Information box to learn more about Colonoscopy: What to Expect at Home. If you do not have an account, please click on the Sign Up Now link. [phone] [employer]. Care instructions adapted under license by [facility]. This care instruction is for use with your licensed healthcare professional. If you have questions about a medical condition or this instruction, always ask your healthcare professional. [employer] disclaims any warranty or liability for your use of this information. Content Version: [id number]; Last Revised: January 11, 2013 EGD DISCHARGE [...] of fluids when exercising. MEDICATIONS: Take an xbnw-jde-dqbctxs fiber supplement as noted above twice daily. [...] to call your physician or the hospital rip and groove machine operator if you have any questions, [...] is particularly easy to incorporate into a recipe. High-Fiber Diet Eating Guide Food Category Foods Recommended Notes Grains Whole-grain breads, muffins, bagels, or verna bread [place] bread Whole-wheat crackers or crisp breads Whole-grain or bran cereals Oatmeal, oat bran, or grits Wheat germ Whole-wheat pasta and brown rice Read the ingredients list on food labels. Look for products that list whole as the first ingredient (eg, whole-wheat, whole oats). Choose cereals with at least 2 grams of fiber per serving. Vegetables All vegetables, especially asparagus, rocha sprouts, broccoli, [place] sprouts, cabbage, carrots, cauliflower, celery, corn, greens, [...] All nuts and seeds, especially almonds, peanuts, [place] nuts, cashews, peanut butter, walnuts, sesame and [...] be sent through Care Everywhere. * Esophagitis (Lithuanian) documented in this encounter Family History No Family History Records FoundUnknown Family Member Name Dates Details Family history [...] Contact Diagnoses Anemia ANEMIA COVID 03/03 Procedures CA ESOPHAGOGASTRODUODENOSCOPY TRANSORAL DIAGNOSTIC CA COLONOSCOPY FLX DX W/COLLJ SPEC WHEN PFRMD EGD COLONOSCOPY DIAGNOSTIC Bobbi Nunez MD [address] [address] [facility] Reason Comments Keratoconjunctivitis sicca Reason Comments Patient Question Reason Onset Date Comments Opened In Error 12/23/2022 Reason Comments Eye Problem Left Eye Reason Comments Appointment Cancelled Reason Comments Pain Rt lower back pain Reason Comments Medication Question Specialty Diagnoses / Procedures Referred By Contac t Referred To Contact Pain Management Diagnoses Spondylosis without myelopathy or radiculopathy, lumbosacral region Procedures CA NJX DX/THER AGT PVRT FACET JT LMBR/SAC 1 LEVEL CA NJX DX/THER AGT PVRT FACET JT LMBR/SAC 2ND LEVEL Mateo Licona MD [address] [place] [address] Mateo Licona MD [address] [place] [address] Referral ID Status Reason Start Date Expiration Date Visits Re quested Visits Authorized [id number] Open 01/05/2024 01/04/2025 1 1 Specialty Diagnoses / Procedures Referred By Contac t Referred To Contact Pain Management Diagnoses Spondylosis without myelopathy or radiculopathy, lumbosacral region Procedures CA DSTR NROLYTC AGNT PARVERTEB FCT SNGL LMBR/SACRAL CA DSTR NROLYTC AGNT PARVERTEB FCT ADDL LMBR/SACRAL Mateo Licona MD [address] [place] [address] Mateo Licona MD [address] [place] [address] Referral ID Status Reason Start Date Expiration Date Visits Re quested Visits Authorized [id number] Open 02/23/2024 05/24/2024 1 1 Reason Comments Diabetic Eye Exam Reason Comments Tearing Both Eyes Reason Comments Medication Problem INFORMATION SOURCE (unrecogn ized section and content) DATE CREATED AUTHOR 09/03/2021 [employer] DATE CREATED AUTHOR AUTHOR'S ORGANIZ ATION 12/26/2022 [facility] DATE CREATED AUTHOR AUTHOR'S ORGANIZ ATION 04/30/2023 [facility] DATE CREATED AUTHOR AUTHOR'S ORGANIZ ATION 05/15/2023 [facility] DATE CREATED AUTHOR AUTHOR'S ORGANIZ ATION 12/03/2023 [facility] DATE CREATED AUTHOR AUTHOR'S ORGANIZ ATION 03/23/2024 [facility] DATE CREATED AUTHOR AUTHOR'S ORGANIZ ATION 06/15/2024 [facility] DATE CREATED AUTHOR AUTHOR'S ORGANIZ ATION 07/27/2024 [facility] DATE CREATED AUTHOR AUTHOR'S ORGANIZ ATION 09/30/2024 [facility] Source Comments (unrecognize d section and content) In the event this informatio n is protected by the Federal Confidentiality of Alcohol and Drug Abuse Patient Records regulations: The Federal rules restrict any use of the information to criminally investigate or prosecute any alcohol or drug abuse patient.[facility] the event this information is protected by the Federal Confidentiality of Alcohol and Drug Abuse Patient Records regulations: The Federal rules restrict any use of the information to criminally investigate or prosecute any alcohol or drug abuse patient.[facility] the event this information is protected by the Federal Confidentiality of Alcohol and Drug Abuse Patient Records regulations: The Federal rules restrict any use of the information to criminally investigate or prosecute any alcohol or drug abuse patient.[facility] the event this information is protected by the Federal Confidentiality of Alcohol and Drug Abuse Patient Records regulations: The Federal rules restrict any use of the information to criminally investigate or prosecute any alcohol or drug abuse patient.[facility] the event this information is protected by the Federal Confidentiality of Alcohol and Drug Abuse Patient Records regulations: The Federal rules restrict any use of the information to criminally investigate or prosecute any alcohol or drug abuse patient.[facility] the event this information is protected by the Federal Confidentiality of Alcohol and Drug Abuse Patient Records regulations: The Federal rules restrict any use of the information to criminally investigate or prosecute any alcohol or drug abuse patient.[facility] the event this information is protected by the Federal Confidentiality of Alcohol and Drug Abuse Patient Records regulations: The Federal rules restrict any use of the information to criminally investigate or prosecute any alcohol or drug abuse patient.[facility] the event this information is protected by the Federal Confidentiality of Alcohol and Drug Abuse Patient Records regulations: The Federal rules restrict any use of the information to criminally investigate or prosecute any alcohol or drug abuse patient.[facility] the event this information is protected by the Federal Confidentiality of Alcohol and Drug Abuse Patient Records regulations: The Federal rules restrict any use of the information to criminally investigate or prosecute any alcohol or drug abuse patient.[facility] the event this information is protected by the Federal Confidentiality of Alcohol and Drug Abuse Patient Records regulations: The Federal rules restrict any use of the information to criminally investigate or prosecute any alcohol or drug abuse patient.[facility] the event this information is protected by the Federal Confidentiality of Alcohol and Drug Abuse Patient Records regulations: The Federal rules restrict any use of the information to criminally investigate or prosecute any alcohol or drug abuse patient.[facility] Care Teams (unrecognized sec tion and content) Jig And Fixture Builder Apprentice Relationship Specialty Start Date End Date Smith Sheikh MD [address] [place] [id number] PCP - General 01/08/14 Jig And Fixture Builder Apprentice Relationship Specialty Start Date End Date Smith Sheikh MD [address] [place] [address], [place] [address] PCP - General Family Medicine 05/18/13 Jig And Fixture Builder Apprentice Relationship Specialty Start Date End Date Smith Sheikh MD [address] [place] [address], [place] [address] PCP - General Family Medicine 05/18/13 Jig And Fixture Builder Apprentice Relationship Specialty Start Date End Date Smith Sheikh MD [address] [place] [address], [place] [address] PCP - General 01/08/14 Jig And Fixture Builder Apprentice Relationship Specialty Start Date End Date Smith Sheikh MD [address] [place] [address], [place] [address] PCP - General Family Medicine 05/18/13 Jig And Fixture Builder Apprentice Relationship Specialty Start Date End Date Smith Sheikh MD [address] [place] [address] PCP - General 01/08/14 Jig And Fixture Builder Apprentice Relationship Specialty Start Date End Date Smith Sheikh MD [address] [place] [address], [place] [address] PCP - General 01/08/14 Jig And Fixture Builder Apprentice Relationship Specialty Start Date End Date Smith Sheikh MD [address] [place] [address], [place] [address] PCP - General 01/08/14 Jig And Fixture Builder Apprentice Relationship Specialty Start Date End Date Smith Sheikh MD [address] [place] [address], [place] [address] PCP - General 01/08/14 Jig And Fixture Builder Apprentice Relationship Specialty Start Date End Date Smith Sheikh MD [address] [place] [address] PCP - General Family Medicine 05/18/13 Jig And Fixture Builder Apprentice Relationship Specialty Start Date End Date Smith Sheikh MD [address] [place] [address] PCP - General Family Medicine 05/18/13 Jig And Fixture Builder Apprentice Relationship Specialty Start Date End Date Smith Sheikh MD [address] [place] [address] PCP - General 01/08/14 Jig And Fixture Builder Apprentice Relationship Specialty Start Date End Date Smith Sheikh MD [address] [place] [address] PCP - General 01/08/14 Jig And Fixture Builder Apprentice Relationship Specialty Start Date End Date Smith Sheikh MD [address] [place] [address] PCP - General 01/08/14 FOR RECORDS PERTAINING [...] BE BASED ON THE PRIMARY CLINICAL RECORDS. [facility] [employer] [facility]. provides no warranty or guarantee of the accuracy or completeness of information in this document.
--- NOTE | 2024-10-03 13:37 | CM.DCFOLLOWU ---
Person spoke with: Marah How are you feeling? Much better How is your pain? No pain Did you understand your discharge instructions? Yes Do you have any questions about your discharge instructions? No Were you given any prescriptions at discharge? Yes Were you able to get your prescriptions filled? Yes Do you understand how to take your medications as ordered? Yes Do you have any questions about your follow up appointment and do you plan to keep your follow up appointment? No I have already went to see my PCP and they are referring me for colonoscopy Is there anything else that you would like to discuss? No Questions/Comments/Concerns/Other:
== END 2024-10-01 15:44 | disposition home or self-care (01) | DRG 871 ==
LOC: ER 22:57 → MS 09-30 13:49
PROVIDERS: Registered Nurse; Surgery; Admitting Provider Family Medicine; Emergency Provider Internal Medicine; PCP Family Medicine; Visit Provider Family Medicine
PROC: 0DB68ZX Excision of Stomach, Via Natural or Artificial Opening Endoscopic, Diagnostic (ICD-10-PCS; principal; 2024-09-30 08:00)
DX: A41.9 Sepsis, unspecified organism (principal); J69.0 Pneumonitis due to inhalation of food and vomit; K25.0 Acute gastric ulcer with hemorrhage; K22.11 Ulcer of esophagus with bleeding; D62 Acute posthemorrhagic anemia; J44.0 Chronic obstructive pulmonary disease with (acute) lower respiratory infection; N39.0 Urinary tract infection, site not specified; Z99.81 Dependence on supplemental oxygen; G47.30 Sleep apnea, unspecified; E07.9 Disorder of thyroid, unspecified; I25.2 Old myocardial infarction; E78.00 Pure hypercholesterolemia, unspecified; I10 Essential (primary) hypertension; E13.9 Other specified diabetes mellitus without complications; Z90.49 Acquired absence of other specified parts of digestive tract; Z79.84 Long term (current) use of oral hypoglycemic drugs; M54.50 Low back pain, unspecified; M47.812 Spondylosis without myelopathy or radiculopathy, cervical region; Z80.0 Family history of malignant neoplasm of digestive organs; E83.42 Hypomagnesemia; I25.10 Atherosclerotic heart disease of native coronary artery without angina pectoris; K21.9 Gastro-esophageal reflux disease without esophagitis; M54.16 Radiculopathy, lumbar region; K44.9 Diaphragmatic hernia without obstruction or gangrene; Z79.82 Long term (current) use of aspirin; Z79.899 Other long term (current) drug therapy; M54.9 Dorsalgia, unspecified; G89.29 Other chronic pain; R79.89 Other specified abnormal findings of blood chemistry; M15.9 Polyosteoarthritis, unspecified; Z90.710 Acquired absence of both cervix and uterus
CPT/HCPCS: 36415; 36430; 71046; 80048; 80053; 81003; 82948; 83605; 83690; 83735; 84484; 85025; 85027; 85610; 85730; 86850; 86900; 86901; 86923; 87077; 88305; 88312; 88313; 94640; 94667; 94668; 94761; 96374; 96375; 99285; G0328; G0378; J0696; J2405; J2704; P9016

== ENCOUNTER 2024-10-05 16:34 | Outpatient (OUT) | payer MEDICARE, SELFPAY ==
--- OUTSIDE RECORDS SUMMARY | 2024-10-05 16:46 | XMS_ITS | CCD ---
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 Name Role Phone Smith Sheikh Primary Care Provider [phone] Unavailable Unavailable Smith Sheikh MD Primary Care Provi israel Smith Sheikh MD Primary Care Provider Ava Salvador Unavailable Adilia Buck Unavailable Smith Sheikh MD Primary Care Provider Smith Sheikh MD Primary Care Provi israel EMETERIO ., CORBY Attending Unavailable EMETERIO ., CORBY Admitting Unavailable [facility] Care Unavailable ALEX HUERTA Consulting Unavailable EMETERIO ., CORBY Consulting Unavailable [facility] Primary [facility] Unavailable LAKSHMIPATHY ., NARENDRANATH Attending Valery vailable LAKSHMIPATHY ., NARENDRANATH Admitting Valery vailable LAKSHMIPATHY ., NARENDRANATH Consulting Valery vailable ARCINIEGA ., DR RONY Reinoso Attending Unavailable [facility] Primary Care Unavailable ARSHAD ., GOGO Consulting Unavailable ARCINIEGA ., DR RONY Reinoso Admitting Unavailable LAKSHMIPATHY ., NARENDSILKEATH Consulting Valery vailable ARCINIEGA ., DR RONY Reinoso Consulting Unavailable [facility] Primary Care Unavailable ARCINIEGA ., DR RONY Reinoso Admitting Unavailable ARCINIEGA ., DR RONY Reinoso Attending Unavailable ARSHAD ., GOGO Consulting Unavailable LAKSHMIPATHY ., NARENDRANATH Attending Valery vailable LAKSHMIPATHY ., NARENDRANATH Admitting Valery vailable [facility] Primary Care Unavailable SUZE ., DR RONY [...] Consulting Unavailable RAGOTHAMAN, SMITH Primary Care Unavailable NADERER, DR MARLA Puente Consulting Unavailable NADERER, DR MARLA Puente Attending Unavailable NADERER, DR MARLA Puente Admitting Unavailable TREVON NAGY Consulting Unavailable HARIS OSUNA Consulting Unavailable GABRIELA MITTAL Consulting Unavailable EMETERIO ., CORBY Consulting Unavailable EMETERIO ., CORBY Attending [facility]available [facility] Primary [facility] Unavailable EMETERIO ., CORBY Admitting Unavailable ASTRID RODRIGUEZ Consulting Unavaila BILL Vivar Consulting Unavailable Courtney Perez Unavailable [facility], SMITH [facility] Primary Care Unava ilable [facility] Referring Unavailable BOBBI NUNEZ Referring Unavailable RAGOTHAMAN, SMITH M Primary Care Unavailabl e FABI ANTONY Referring Unavailable RAGOTHAMAN, SMITH M Primary Care Unavailabl e RAGOTHAMAN, SMITH M Primary Care Unavailabl e RAGOTHAMAN, SMITH M Attending Unavailabl e RAGOTHAMAN, SMITH M Referring Unavailabl e Tayla Torres Unavailable Smith Sheikh MD Primary Care Provider Smith Sheikh MD Primary Care Provi israel TRINIDAD LICONA Referring Unavailable RAGOTHAMAN, SMITH M Primary Care [...] DAMON Referring Unavailable AVA DAMON Attending [facility]available [facility] SMITH GUILLE Primary Care Unava ilable Gabriela Villatoro Attending Unavailable Gabriela Villatoro Admitting Unavailable Ragothaman, Smith M Primary Care Unavailabl e Allergies Allergy Classification Reported Allergen(s) Allergy Type Date of Onset Reaction(s) Facility (20 sources) Cetirizine; Translations: [CETIRIZINE HCL] Drug Allergy 12-20-19 09 [facility] Work Phone: (20 sources) Ciprofloxacin; Translations: [Ciprofloxacin HCl TABS] Drug Allergy 05-19-20 13 Unknown [facility] [employer] Phone: (20 sources) Morphine; Translations: [morphine] Drug Allergy 12-20-19 09 chest hurting and breathing issues [employer] Phone: (10 sources) Penicillins; Translations: [PENICILLINS] Propensity to adverse reactions to drug 12-20-19 09 [employer] Phone: (20 sources) Sulfamethoxazole / Trimethoprim; Translations: [SULFAMETHOXAZOLE-T RIMETHOPRIM] Drug Allergy 12-20-19 09 Nausea And Vomiting [employer] Phone: (6 sources) traMADol Drug Allergy 02-27-20 21 Other (See Comments) [employer] Phone: (5 sources) Cetirizine; Translations: [Cetirizine HCl TABS] Drug Allergy [facility] [email or web address] [facility] Work Phone: (5 sources) Penicillins; Translations: [Penicillins] Allergy to drug (finding) [facility] [email or web address] [facility] Work Phone: (9 sources) Sulfamethoxazole / Trimethoprim; Translations: [Bactrim TABS] Drug Allergy stomach pain [facility] [email or web address] [facility] Work Phone: (5 sources) Sulfonamides (Antibiotic); Translations: [Sulfa Drugs] Allergy to drug (finding) [facility] [email or web address] [facility] Work Phone: (14 sources) Ibuprofen; Translations: [IBUPROFEN] Drug Allergy 12-07-19 18 Unknown [facility] (2 sources) Penicillins Propensity to adverse reactions 12-20-19 09 [facility] (4 sources) Cetirizine Drug Allergy blood pressure elevated [facility] Other (5 sources) Penicillin G Benzathine; Translations: [penicillin G benzathine] Drug allergy 06-11-20 24 [facility] Repository (2 sources) sulfaSALAzine Drug Allergy Unknown [facility] Other (13 sources) Penicillins Propensity to adverse reactions to drug 12-20-19 09 [facility] [employer] Work Phone: (1 source) Cetirizine Drug Allergy 08-11-20 15 [facility] Repository (1 source) Ciprofloxacin Drug Allergy 08-11-20 15 [facility] Repository (2 sources) Morphine Drug Allergy 05-05-20 15 [facility] Repository (2 sources) Penicillins Drug allergy (disorder) 04-28-20 15 [facility] Repository (2 sources) Sulfamethoxazole / Trimethoprim Drug Allergy 05-05-20 15 [facility] Repository (1 source) Sulfonamides (Antibiotic) Drug allergy (disorder) 08-11-20 15 [facility] Repository (2 sources) Substance with sulfonamide structure and antibacterial mechanism of action (substance) Drug allergy Unknown [facility] Other (3 sources) Cetirizine; Translations: [CETIRIZINE] Drug Allergy 12-20-19 09 [facility] Repository (2 sources) Sulfonamides (Antibiotic); Translations: [SULFA (SULFONAMIDE ANTIBIOTICS)] Propensity to adverse reactions to drug (disorder) 12-01-19 [place] [address] Repository (1 source) Ciprofloxacin Drug Allergy 06-11-20 24 [facility] Repository (1 source) Morphine Drug Allergy 06-11-20 [facility] Repository (1 source) Penicillins Drug allergy (disorder) 06-11-20 [facility] Repository (1 source) Sulfamethoxazole Drug Allergy 06-11-20 [facility] Repository (1 source) Trimethoprim Drug Allergy 06-11-20 [facility] Repository Medications Current Medications Medication Drug Class(es) Dates Sig (Normalized) Sig (Original) acetaminophen 300 mg / codeine phosphate 30 mg oral tablet (15 sources) Opioid Agonist Start: 09-16-2020 acetaminophen-cod eine (TYLENOL-COD #3) 300-30 mg per tablet 10/13/2020 Active Advair Diskus 250-50 MCG/DOSE (4 sources) take 1 puff(s) by inhalation twice daily Advair Diskus 250-50 MCG/DOSE 1 puff Inhalation Twice a day Active [id number] actuat albuterol 0.09 mg/actuat metered dose [...] day for 7 days Dec, Active Start: 05-08-2023 take 1 capsule by mo uth three times daily as needed for cough Benzonatate 200 MG 1 capsule Orally Three times a day prn cough for 10 days Apr, Not-Taking/PRN biotin 1 mg oral capsule (13 sources) biotin 1 mg cap Take by mouth. Active Biotin 89464 MCG TABS Take by mouth 0 Active Comment on above: Take by mouth. Ecropywmz-EC-Chsnwayrdpx en (CORICIDIN D COLD/FLU/SINUS PO) (2 sources) Sbpppxukc-FC-Rhv ta minophen (CORICIDIN D COLD/FLU/SINUS PO) Take [...] 02-Sep-2021 DO Active take 1 capsule by mo uth once daily, then take 10 capsules by mouth once, then take 10 capsules by mouth Coenzyme Q10 (CO Q 10) 10 MG CAPS Take 10 mg by mouth daily 0 Active Comment on above: Take 1 capsule by mo ut once daily. COMP-AIR NEBULIZER COMPRESSOR (3 sources) [...] / neomycin 3.5 mg/ml / polymyxin b 61157 unt/ml ophthalmic suspension (4 sources) Aminoglycoside Antibacterial, Polymyxin-class Antibacterial, Corticosteroid Start: 4 take 1 drop(s) into the eye(s) three times daily NEOMYCIN-POLYMY APOLLO-DEXAMETH 3.5 MG/ML-10,000 UNIT/ML-0.1% EYE DROPS Use 1 Drop in both eyes three times a day. 5 mL 08/29/2024 Active Start: 11-18-2020 Neomycin-Polym yxin-Dexameth 3.5-31652-0.1 Ophthalmic Ointment Quantity: 3 Refills: 0 Ordered: [...] fur oate(NASONEX 50 MCG/ACTUATION SPRAY) MV with Dsu-Tyuuevkr-Twtqhu 0.4 mg-300 mcg- 250 mcg tab (7 [...] Start: 10-21-2020 take 1 tablet by pauline th once daily pantoprazole DR (PROTONIX) 40 mg [...] 01/22/2021 04/22/2021 Active take 1 capsule by mo [facility] twice daily at mealtime CeleBREX 200 [...] DO Start : 16-Jun-2021 Complete MV with Zjh-Wnifvgmw-Jcqtte (CENTRUM SILVER) 0.4-300-250 mg-mcg-mcg tab (4 sources) MV with Qcf-Qtkcqfiy-Chyhkf (CENTRUM SILVER) 0.4-300-250 mg-mcg-mcg tab Take by [...] Drop ( AK-DILATE, THERESA-SYNEPHRINE) polyethylene glycol 3350 07206 mg powder for oral solution (8 sources) [...] Translations: [Gastroesophageal reflux disease without esophagitis] Onset: 09-07-2004-07-2023 Chronic Esophageal disorders (2 sources) Esophageal disorders; [...] Patient encounter status; Translations: [Pre-op testing] Unclassified (4 sources) LOW BACK PAIN, UNSPECIFIED; Translations: [LOW BACK PAIN, UNSPECIFIED] Onset: 07-06-20 Unclassified (1 source) CONTACT W/AND (SUSP) EXPOS COVID-19; Translations: [CONTACT W/AND (SUSP) EXPOS COVID-19] Onset: 09-02-20 Unclassified (1 source) EMS Onset: 06-12-20 Unclassified [...] 04-29-2016 04-29-2016 Chronic Other aftercare (1 source) detention (current) use of aspirin; Translations: [SAFETY COMPLIANCE SPECIALIST CURRENT USE OF ASPIRIN] Onset: 09-07-2022 Episodic Other aftercare (1 source) Other mcfp (current) drug therapy; Translations: [OTH SAFETY COMPLIANCE SPECIALIST CURRENT DRUG THERAPY] Onset: 09-07-2022 Episodic Other aftercare (1 source) 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 (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) use of oral hypoglycemic drugs; Translations: [RESIDENTIAL USE ORAL HYPOGLYCEMIC DX] Onset: 09-07-2022 Episodic Other aftercare (2 sources) Long-term current use of aspirin; Translations: [detention (current) use of aspirin] Onset: 09-07-2022 04-07-2023 Episodic Other aftercare (2 sources) Long-term current use of oral hypoglycemic medication; Translations: [detention (current) use of oral hypoglycemic drugs] Onset: 09-07-2022 04-07-2023 Episodic Other aftercare (2 sources) Long-term current use of drug therapy; Translations: [Other termite treater (current) drug therapy] Onset: 09-07-2022 04-07-2023 Episodic [...] Test Name Value Interpretation Reference Range Facility [facility] 09-28-2024 [facility] Telephone (OPHTLN) MARAH SILVA ([id number]) 1950 F Date Time Provider Department 09/28/24 AVA DAMON During your visit today, we recorded the following information about you: Astrid Latham 09/28/2024 8:58 AM Signed Pt is requesting a new eye drop prescription or another alternative due to the rx that was given being to expensive. Pt states they are 25 dollars and too much. Would like something else. Would like something sent to [facility] in [place] on [address] Astrid Latham 09/28/2024 2:54 [...] 12/20/2008 Date Reviewed: 08/29/2024 Reviewed by: Ava Damon, OD - Fully Assessed Reason for Visit: Medication Problem [65] Prescriptions as of 09/28/2024 - HOUEEILW-NKQTZXMPX-K EXAMETH 3.5 MG/ML-10,000 UNIT/ML-0.1% EYE DROPS Use [...] by mouth once daily. - MV with Ope-Qcpejmot-Ptpqfz 0.4 mg-300 mcg- 250 mcg tab Take [...] not seem to be accurate. Jose Luis, 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 Encounter Status:Closed by ASTRID LATHAM on 09/28/24 Normal [facility] CBC AND AUTO DIFFon 06-13-20 ABSOLUTE BASOPHIL 0.0 X10E9/L Normal 0.0-0.2 [facility] Comment on above: Performed By: #### C JAMES, 96502-6, [facility], 49663-1, 43495-9 #### [facility] ([id number]) [address] [place] [address], [place] [address] ABSOLUTE NEUTROPHIL 7.1 X10E9/L High 1.5-6.6 [facility] Comment on above: Performed By: #### C JAMES, 28056-3, CMP, 23173-6, 00408-6 #### [facility] ([id number]) [address] [place] [address] 50457 Basophils/100 WBC (Bld) 0.2 % Normal [facility] Comment on above: Performed By: #### Siria RAMIREZ, 21386-7, CMP, 91574-7, 34161-3 #### [facility] ([id number]) [address] [place] [address] 44738 Eosinophils (Bld) [#/Vol] 0.0 10*3/uL Normal 0.0-0.4 [facility] Comment on above: Performed By: #### Siria RAMIREZ, 67091-0, CMP, 23055-3, 53176-6 #### [facility] ([id number]) [address] [place] [address] 54541 Eosinophils/100 WBC (Bld) 0.0 % Normal [facility] Comment on above: Performed By: #### Siria RAMIREZ, 73687-9, CMP, 15914-4, 05469-9 #### [facility] ([id number]) [address] [place] [address] 37451 Erythrocyte distribution width (RBC) [Ratio] 16.0 % High 11.5-15.0 [facility] Comment on above: Performed By: #### Siria RAMIREZ, 04912-0, CMP, 23134-1, 36589-9 #### [facility] ([id number]) [address] [place] [address] 74866 Hematocrit (Bld) [Volume fraction] 30.8 % Low 35-47 [facility] Comment on above: Performed By: #### Siria RAMIREZ, 96399-3, CMP, 31713-0, 84412-3 #### [facility] ([id number]) [address] [place] [address] 07710 Hemoglobin (Bld) [Mass/Vol] 10.3 g/dL Low 11.7-15.5 [facility] Comment on above: Performed By: #### Siria RAMIREZ, 02508-4, CMP, 76365-9, 59675-6 #### [facility] ([id number]) [address] [place] [address] 75976 Lymphocytes (Bld) [#/Vol] 1.0 10*3/uL Normal 1.0-3.5 [facility] Comment on above: Performed By: #### Siria RAMIREZ, 05696-9, CMP, 35255-1, 60038-1 #### [facility] ([id number]) [address] [place] [address] 93905 Lymphocytes/100 WBC (Bld) 12.1 % Normal [facility] Comment on above: Performed By: #### Siria RAMIREZ, 60343-8, CMP, 01754-0, 54533-0 #### [facility] ([id number]) [address] [place] [address] 53417 MCH (RBC) [Entitic mass] 29.9 pg Normal 27-34 [facility] Comment on above: Performed By: #### Siria RAMIREZ, 35945-7, CMP, 78977-1, 39021-9 #### [facility] ([id number]) [address] [place] [address] 97245 MCHC (RBC) [Mass/Vol] 33.4 g/dL Normal 32-36 [facility] Comment on above: Performed By: #### Siria RAMIREZ, 41185-1, CMP, 70340-2, 26696-2 #### [facility] ([id number]) [address] [place] [address] 15126 MCV (RBC) [Entitic vol] 90 fL Normal 80-100 [facility] Comment on above: Performed By: #### Siria RAMIREZ, 26271-6, CMP, 45146-7, 54027-8 #### [facility] ([id number]) [address] [place] [address] 46581 Monocytes (Bld) [#/Vol] 0.4 10*3/uL Normal 0-0.9 [facility] Comment on above: Performed By: #### Siria RAMIREZ, 16114-0, CMP, 33478-2, 63887-9 #### [facility] ([id number]) [address] [place] [address] 06384 Monocytes/100 WBC (Bld) 4.8 % Normal [facility] Comment on above: Performed By: #### Siria RAMIREZ, 03221-7, CMP, 38553-9, 60159-9 #### [facility] ([id number]) [address] [place] [address] 51224 Neutrophils/100 WBC (Bld) 82.9 % Normal [facility] Comment on above: Performed By: #### Siria RAMIREZ, 95486-5, CMP, 16293-0, 52010-9 #### [facility] ([id number]) [address] [place] [address] 18727 Platelet mean volume (Bld) [Entitic vol] 8.0 fL Normal 7-12 [facility] Comment on above: Performed By: #### Siria RAMIREZ, 80051-1, CMP, 19913-7, 70032-5 #### [facility] ([id number]) [address] [place] [address] 85922 Platelets (Bld) [#/Vol] 200 10*3/uL Normal 150-450 [facility] Comment on above: Performed By: #### Siria BCA, 12617-7, CMP, 59028-8, 10760-0 #### [facility] ([id number]) [address] [place] [address] 25638 RBC COUNT 3.43 X10E12/L Low 3.80-5.20 [facility] Comment on above: Performed By: #### C BCA, 04106-5, CMP, 15839-8, 52565-8 #### [facility] ([id number]) [address] [place] [address] 50170 WBC (Bld) [#/Vol] 8.5 10*3/uL Normal 4.0-11.0 [facility] Comment on above: Performed By: #### C BCA, 49288-2, CMP, 92260-7, 56252-4 #### [facility] ([id number]) [address] [place] [address] 29673 COMPREHENSIVE METABOLIC PANE Schuyler 06-13-2024 Albumin [Mass/Vol] 3.4 g/dL Normal 3.2-5.3 [facility] Comment on above: Performed By: #### C BCA, 27969-9, CMP, 88074-3, 75443-2 #### [facility] ([id number]) [address] [place] [address] 94796 ALP [Catalytic activity/Vol] 69 U/L Normal 39-130 [facility] Comment on above: Performed By: #### C BCA, 90061-4, CMP, 78431-7, 88916-7 #### [facility] ([id number]) [address] [place] [address] 19070 ALT [Catalytic activity/Vol] 34 U/L High 0-31 [facility] Comment on above: Performed By: #### C BCA, 69264-3, CMP, 35081-1, 15936-4 #### [facility] ([id number]) [address] [place] [address] 15101 Anion gap [Moles/Vol] 8 mmol/L Normal 5-15 [facility] Comment on above: Performed By: #### C BCA, 47913-9, CMP, 95935-4, 33356-6 #### [facility] ([id number]) [address] [place] [address] 33186 AST [Catalytic activity/Vol] 31 U/L Normal 0-41 [facility] Comment on above: Performed By: #### C BCA, 14452-3, CMP, 32347-4, 02163-6 #### [facility] ([id number]) [address] [place] [address] 59396 Bilirubin [Mass/Vol] 0.3 mg/dL Normal 0.3-1.2 [facility] Comment on above: Performed By: #### C BCA, 06060-7, CMP, 95861-8, 73247-7 #### [facility] ([id number]) [address] [place] [address] 25169 Calcium [Mass/Vol] 8.5 mg/dL Normal 8.5-10.5 [facility] Comment on above: Performed By: #### C BCA, 50336-2, CMP, 11125-4, 87232-1 #### [facility] ([id number]) [address] [place] [address] 89843 Chloride [Moles/Vol] 107 mmol/L Normal 98-109 [facility] Comment on above: Performed By: #### C BCA, 76027-4, CMP, 68473-0, 03771-1 #### [facility] ([id number]) [address] [place] [address] 39217 CO2 [Moles/Vol] 21 mmol/L Low 22-32 [facility] Comment on above: Performed By: #### C BCA, 13539-9, CMP, 21261-7, 78107-3 #### [facility] ([id number]) [address] [place] [address] 71068 Creatinine [Mass/Vol] 0.62 mg/dL Normal 0.40-1.00 [facility] Comment on above: Result Comment: METH OD TRACEABLE TO IDMS STANDARD Performed By: #### C BCA, 19392-3, CMP, 56184-3, 49871-5 #### [facility] ([id number]) [address] [place] [address] 71190 eGFR (CKD-EPI) NON-RACE DEPENDENT >90 Normal >59 [facility] Comment on above: Result Comment: Reported eGFR is based on the CKD-EPI 2020 equation that does not use a race coefficient. Performed By: #### C BCA, 78782-9, CMP, 17592-5, 83162-3 #### [facility] ([id number]) [address] [place] [address] 30610 Glucose [Mass/Vol] 159 mg/dL High 65-99 [facility] Comment on above: Performed By: #### C BCA, 76794-5, CMP, 53916-6, 81940-0 #### [facility] ([id number]) [address] [place] [address] 84336 Potassium [Moles/Vol] 3.8 mmol/L Normal 3.5-5.0 [facility] Comment on above: Performed By: #### C BCA, 11666-7, CMP, 34080-6, 24699-4 #### [facility] ([id number]) [address] [place] [address] 64249 Protein [Mass/Vol] 6.3 g/dL Normal 6.0-8.0 [facility] Comment on above: Performed By: #### C BCA, 90221-3, CMP, 86661-1, 57193-0 #### [facility] ([id number]) [address] [place] [address] 88061 Sodium [Moles/Vol] 136 mmol/L Normal 134-146 [facility] Comment on above: Performed By: #### C BCA, 87743-2, CMP, 55820-6, 26132-4 #### [facility] ([id number]) [address] [place] [address] 62791 Urea nitrogen [Mass/Vol] 17 mg/dL Normal 5-27 [facility] Comment on above: Performed By: #### C BCA, 37657-0, CMP, 81099-7, 04140-2 #### [facility] ([id number]) [address] [place] [address] 06484 Glucose Glucometer (BldC) [M ass/Vol]on 06-13-2024 Glucose [Mass/Vol] 233 mg/dL High 65-99 [facility] Glucose [Mass/Vol] 268 mg/dL High 65-99 [facility] Glucose [Mass/Vol] 153 mg/dL High 65-99 [facility] Glucose [Mass/Vol] 276 mg/dL High 65-99 [facility] MAGNESIUMon 06-13-2024 Magnesium [Mass/Vol] 1.5 mg/dL Low 1.8-2.6 [facility] Comment on above: Performed By: #### C BCA, 67168-0, CMP, 28984-6, 50019-9 #### [facility] ([id number]) [address] [place] [address] 39316 Troponin I.cardiac High sens itivity method [Mass/Vol]on 06-13-2024 3 HOUR TROP I, HIGH SENSITIVITY 100 ng/L High <16 [facility] Comment on above: Result Comment: Elevations of hs-Troponin may be due to causes other than myocardial ischemia. Recommend serial hs-Troponin testing be performed. For the initial evaluation and management of chest pain patients, refer to the algorithms linked below. Emergency Patient: [email or web address] Inpatient: [email or web address] Performed By: #### C BCA, 74598-4, CMP, 10729-2, 03574-8 #### [facility] ([id number]) [address] [place] [address] 12543 1 HOUR TROP I, HIGH SENSITIVITY 116 ng/L High <16 [facility] Comment on above: Result Comment: Elevations of hs-Troponin may be due to causes other than myocardial ischemia. Recommend serial hs-Troponin testing be performed. For the initial evaluation and management of chest pain patients, refer to the algorithms linked below. Emergency Patient: [email or web address] Inpatient: [email or web address] uh=[email or web address] Performed By: #### C BCA, 74543-2, CMP, 20828-9, 61906-3 #### [facility] ([id number]) [address] [place] [address] 54832 TROPONIN I, HIGH SENSITIVITY 116 ng/L High <16 [facility] Comment on above: Result Comment: Elevations of hs-Troponin may be due to causes other than myocardial ischemia. Recommend serial hs-Troponin testing be performed. For the initial evaluation and management of chest pain patients, refer to the algorithms linked below. Emergency Patient: [email or web address] Inpatient: [email or web address] [email or web address] Performed By: #### C BCA, 49861-2, CMP, 12606-5, 88568-1 #### [facility] ([id number]) [address] [place] [address] 20356 Beta hydroxybutyrate [Moles/ Vol]on 06-12-2024 BetaHydroxybutyrate 0.20 mmol/L Normal 0.02-0.27 [facility] Comment on above: Performed By: #### 6 873-4, 57199-8, 40090-7 #### [facility] ([id number]) [address] [place] [address] 85186 CBC AND AUTO DIFFon 06-12-20 ABSOLUTE BASOPHIL 0.0 X10E9/L Normal 0.0-0.2 [facility] Comment on above: Performed By: #### C BCA, 29025-7, CMP, 83151-8, 09660-2 #### [facility] ([id number]) [address] [place] [address] 77938 ABSOLUTE NEUTROPHIL 5.7 X10E9/L Normal 1.5-6.6 [facility] Comment on above: Performed By: #### Siria BCA, 33729-8, CMP, 38235-3, 00571-7 #### [facility] ([id number]) [address] [place] [address] 92588 Basophils/100 WBC (Bld) 0.1 % Normal [facility] Comment on above: Performed By: #### C BCA, 62925-1, CMP, 18264-2, 15540-8 #### [facility] ([id number]) [address] [place] [address] 57154 Eosinophils (Bld) [#/Vol] 0.0 10*3/uL Normal 0.0-0.4 [facility] Comment on above: Performed By: #### C BCA, 40445-0, CMP, 41043-6, 34937-9 #### [facility] ([id number]) [address] [place] [address] 03700 Eosinophils/100 WBC (Bld) 0.0 % Normal [facility] Comment on above: Performed By: #### C BCA, 77260-2, CMP, 79372-3, 18713-1 #### [facility] ([id number]) [address] [place] [address] 76188 Erythrocyte distribution width (RBC) [Ratio] 16.2 % High 11.5-15.0 [facility] Comment on above: Performed By: #### Siria RAMIREZ, 01438-3, CMP, 69083-4, 85974-8 #### [facility] ([id number]) [address] [place] [address] 07147 Hematocrit (Bld) [Volume fraction] 32.5 % Low 35-47 [facility] Comment on above: Performed By: #### Siria RAMIREZ, 07158-7, CMP, 56818-9, 53061-7 #### [facility] ([id number]) [address] [place] [address] 07933 Hemoglobin (Bld) [Mass/Vol] 10.7 g/dL Low 11.7-15.5 [facility] Comment on above: Performed By: #### Siria RAMIREZ, 63982-3, CMP, 02188-1, 68687-1 #### [facility] ([id number]) [address] [place] [address] 70607 Lymphocytes (Bld) [#/Vol] 0.6 10*3/uL Low 1.0-3.5 [facility] Comment on above: Performed By: #### Siria RAMIREZ, 80705-1, CMP, 02617-2, 45325-9 #### [facility] ([id number]) [address] [place] [address] 17578 Lymphocytes/100 WBC (Bld) 8.7 % Normal [facility] Comment on above: Performed By: #### Siria RAMIREZ, 01158-1, CMP, 42510-3, 83640-4 #### [facility] ([id number]) [address] [place] [address] 91176 MCH (RBC) [Entitic mass] 29.6 pg Normal 27-34 [facility] Comment on above: Performed By: #### C BCA, 78973-7, CMP, 69291-5, 16986-4 #### [facility] ([id number]) [address] [place] [address] 29527 MCHC (RBC) [Mass/Vol] 32.9 g/dL Normal 32-36 [facility] Comment on above: Performed By: #### C BCA, 84378-2, CMP, 30750-4, 94968-9 #### [facility] ([id number]) [address] [place] [address] 08260 MCV (RBC) [Entitic vol] 90 fL Normal 80-100 [facility] Comment on above: Performed By: #### Siria RAMIREZ, 12584-4, CMP, 12162-0, 26244-0 #### [facility] ([id number]) [address] [place] [address] 13111 Monocytes (Bld) [#/Vol] 0.2 10*3/uL Normal 0-0.9 [facility] Comment on above: Performed By: #### Siria BCA, 67565-6, CMP, 93972-3, 10489-7 #### [facility] ([id number]) [address] [place] [address] 24250 Monocytes/100 WBC (Bld) 3.3 % Normal [facility] Comment on above: Performed By: #### Siria BCA, 76267-3, CMP, 87117-5, 23018-9 #### [facility] ([id number]) [address] [place] [address] 09926 Neutrophils/100 WBC (Bld) 87.9 % Normal [facility] Comment on above: Performed By: #### Siria BCA, 74169-3, CMP, 01001-1, 52880-9 #### [facility] ([id number]) [address] [place] [address] 21758 Platelet mean volume (Bld) [Entitic vol] 7.7 fL Normal 7-12 [facility] Comment on above: Performed By: #### C BCA, 05622-6, CMP, 15496-0, 74857-5 #### [facility] ([id number]) [address] [place] [address] 70666 Platelets (Bld) [#/Vol] 212 10*3/uL Normal 150-450 [facility] Comment on above: Performed By: #### C BCA, 17763-9, CMP, 03556-1, 51662-8 #### [facility] ([id number]) [address] [place] [address] 79472 RBC COUNT 3.62 X10E12/L Low 3.80-5.20 [facility] Comment on above: Performed By: #### C BCA, 07444-1, CMP, 39793-5, 19556-6 #### [facility] ([id number]) [address] [place] [address] 55047 WBC (Bld) [#/Vol] 6.4 10*3/uL Normal 4.0-11.0 [facility] Comment on above: Performed By: #### C BCA, 50112-6, CMP, 93916-9, 52048-5 #### [facility] ([id number]) [address] [place] [address] 14542 COMPREHENSIVE METABOLIC PANE Schuyler 06-12-2024 Albumin [Mass/Vol] 3.8 g/dL Normal 3.2-5.3 [facility] Comment on above: Performed By: #### C BCA, 04994-4, CMP, 31476-6, 18166-5 #### [facility] ([id number]) [address] [place] [address] 60053 ALP [Catalytic activity/Vol] 78 U/L Normal 39-130 [facility] Comment on above: Performed By: #### C BCA, 26956-2, CMP, 24593-2, 77097-3 #### [facility] ([id number]) [address] [place] [address] 87287 ALT [Catalytic activity/Vol] 30 U/L Normal 0-31 [facility] Comment on above: Performed By: #### C BCA, 87304-8, CMP, 91256-8, 75099-4 #### [facility] ([id number]) [address] [place] [address] 81266 Anion gap [Moles/Vol] 16 mmol/L High 5-15 [facility] Comment on above: Performed By: #### C BCA, 69443-3, CMP, 24487-1, 28728-9 #### [facility] ([id number]) [address] [place] [address] 83855 AST [Catalytic activity/Vol] 31 U/L Normal 0-41 [facility] Comment on above: Performed By: #### C BCA, 81328-3, CMP, 41637-5, 95998-3 #### [facility] ([id number]) [address] [place] [address] 84238 Bilirubin [Mass/Vol] 0.2 mg/dL Low 0.3-1.2 [facility] Comment on above: Performed By: #### C BCA, 99182-9, CMP, 58034-9, 68482-6 #### [facility] ([id number]) [address] [place] [address] 70357 Calcium [Mass/Vol] 9.0 mg/dL Normal 8.5-10.5 [facility] Comment on above: Performed By: #### C BCA, 92201-8, CMP, 79793-3, 29055-4 #### [facility] ([id number]) [address] [place] [address] 87199 Chloride [Moles/Vol] 103 mmol/L Normal 98-109 [facility] Comment on above: Performed By: #### C BCA, 73506-7, CMP, 11878-9, 73799-4 #### [facility] ([id number]) [address] [place] [address] 13594 CO2 [Moles/Vol] 15 mmol/L Low 22-32 [facility] Comment on above: Performed By: #### C BCA, 10477-0, CMP, 32569-1, 73437-1 #### [facility] ([id number]) [address] [place] [address] 48280 Creatinine [Mass/Vol] 0.92 mg/dL Normal 0.40-1.00 [facility] Comment on above: Result Comment: METH OD TRACEABLE TO IDMS STANDARD Performed By: #### C BCA, 62873-1, CMP, 79087-7, 53784-0 #### [facility] ([id number]) [address] [place] [address] 37311 GFR/1.73 sq M.predicted among non-blacks MDRD (S/P/Bld) [Vol rate/Area] 65 mL/min/{1.73_m2} Normal >59 [facility] Comment on above: Result Comment: Reported eGFR is based on the CKD-EPI 1 equation that does not use a race coefficient. Performed By: #### C BCA, 16029-6, CMP, 02439-9, 59991-2 #### [facility] ([id number]) [address] [place] [address] 91031 Glucose [Mass/Vol] 362 mg/dL High 65-99 [facility] Comment on above: Performed By: #### C BCA, 45354-9, CMP, 85155-4, 08778-0 #### [facility] ([id number]) [address] [place] [address] 55255 Potassium [Moles/Vol] 3.7 mmol/L Normal 3.5-5.0 [facility] Comment on above: Performed By: #### C BCA, 48903-9, CMP, 61647-7, 78601-1 #### [facility] ([id number]) [address] [place] [address] 01929 Protein [Mass/Vol] 6.9 g/dL Normal 6.0-8.0 [facility] Comment on above: Performed By: #### C BCA, 35632-3, CMP, 60864-6, 18862-0 #### [facility] ([id number]) [address] [place] [address] 52147 Sodium [Moles/Vol] 134 mmol/L Normal 134-146 [facility] Comment on above: Performed By: #### C BCA, 71075-9, CMP, 74164-7, 51489-6 #### [facility] ([id number]) [address] [place] [address] 47181 Urea nitrogen [Mass/Vol] 22 mg/dL Normal 5-27 [facility] Comment on above: Performed By: #### C BCA, 93254-9, CMP, 10747-7, 49644-7 #### [facility] ([id number]) [address] [place] [address] 35722 Fibrin D-dimer DDU (PPP) [Ma ss/Vol]on 06-12-2024 D DIMER <150 Normal <255 [facility] Comment on above: Result Comment: Results <255 ng/mL DDU: The presence of a VTE can safely be excluded with a negative D-Dimer result and Wells score. A negative result doesn't exclude the possibility of DIC. The test be repeated along with other diagnostic tests if the patient's symptoms persist or worsen. [email or web address] Performed By: #### C JAMES, 60508-8, [facility], 58867-1, 42220-7 #### [facility] ([id number]) [address] [place] [address] 28185 Glucose Glucometer (BldC) [M ass/Vol]on 06-12-2024 Glucose [Mass/Vol] 327 mg/dL High 65-99 [facility] Natriuretic peptide B [Mass/ Vol]on 06-12-2024 Natriuretic peptide B (Bld) [Mass/Vol] 71 pg/mL Normal <100.0 [facility] Comment on above: Performed By: #### C JAMES, 84349-5, [place]ISON, 36026-8, 43871-9 #### [facility] ([id number]) [address] [place] [address] 34711 Procalcitonin IA [Mass/Vol]o n 06-12-2024 PROCALCITONIN 0.05 ng/mL High <0.05 [facility] Comment on above: Result Comment: NOTE <0.50 ng/mL - Low risk of severe sepsis and/or septic shock. <2.00 ng/mL - Recommend retesting within 6-24 hours. >2.00 ng/mL - High risk of sepsis and/or septic shock. Performed By: #### 6 873-4, 34870-3, 02505-8 #### [facility] ([id number]) [address] [place] [address] 72408 Troponin I.cardiac High sens itivity method [Mass/Vol]on 06-12-2024 1 HOUR TROP I, HIGH SENSITIVITY 10 ng/L Normal <16 [facility] Comment on above: Performed By: #### 6 873-4, 77282-4, 11209-5 #### [facility] ([id number]) [address] [place] [address] 89540 TROPONIN I, HIGH SENSITIVITY 7 ng/L Normal <16 [facility] Comment on above: Performed By: #### C BCA, 05560-8, CMP, 00580-5, 04498-5 #### [facility] ([id number]) [address] [place] [address] 50410 VENOUS BLOOD GASon 4 GALI'S TEST Normal [facility] Comment on above: Performed By: #### V BG #### [facility] ([id number]) [address] [place] [address] 37784 BASE,DEFICIT 9.0 MMOL/L High 0.0-2.0 [facility] Comment on above: Performed By: #### V BG #### [facility] ([id number]) [address] [place] [address] 35406 Body temperature 98.6 [degF] Normal 37.[address] [facility] Comment on above: Performed By: #### V BG #### [facility] ([id number]) [address] [place] [address] 59396 HCO3 (Bld) [Moles/Vol] 16.0 mmol/L Low 20.0-24.0 P [facility] Comment on above: Performed By: #### V BG #### [facility] ([id number]) [address] [place] [address] 81743 Oxygen saturation in Blood 60.0 % Low >80.0 [facility] Comment on above: Performed By: #### V BG #### [facility] ([id number]) [address] [place] [address] 16397 OXYGEN SOURCE [employer] [facility] Comment on above: Performed By: #### V BG #### [facility] ([id number]) [address] [place] [address] 77989 PCO2, VENOUS 30.0 MMHG Low 35-50 [facility] Comment on above: Performed By: #### V BG #### [facility] ([id number]) [address] [place] [address] 71612 PH, VENOUS 7.334 Normal 7.320-7.420 [facility] Comment on above: Performed By: #### V BG #### [facility] ([id number]) [address] [place] [address] 77525 PO2, VENOUS 33 MMHG Normal 30-50 [facility] Comment on above: Performed By: #### V BG #### [facility] ([id number]) [address] [place] [address] 85166 SAMPLE SITE N/A Normal [facility] Comment on above: Performed By: #### V BG #### [facility] ([id number]) [address] [place] [address] 74654 SAMPLE TYPE VENOUS Normal [facility] Comment on above: Performed By: #### V BG #### [facility] ([id number]) [address] [place] [address] 86626 FLUORO FOR SURGICAL PROCEDUR ESon 03-22-2024 FLUORO FOR SURGICAL PROCEDURES Radiology result is complete; follow up with provider / physician office for radiology results Final result Normal [facility] Glucose,Whole Bloodon 2023 Glucose [Mass/Vol] 95 mg/dL Normal 65-105 [facility] FLUORO FOR SURGICAL PROCEDUR ESon 02-02-2024 FLUORO FOR SURGICAL PROCEDURES Radiology result is complete; follow up with provider / physician office for radiology results Final result Normal [facility] Glucose,Whole Bloodon 2023 Glucose [Mass/Vol] 88 mg/dL Normal 65-105 [facility] POC Glucose Fingerstickon Glucose [Mass/Vol] 88 mg/dL 65 - 105 mg/dL [facility] COVID + FLU Quick Testingon 02-06-2024 SARS-CoV-2 (COVID-19) RNA JAYY+probe Ql (Unsp spec) Negative [facility] Other COVID + FLU Quick Testing Negative [facility] Other FLUORO FOR SURGICAL PROCEDUR ESon 11-08-2023 FLUORO FOR SURGICAL PROCEDURES Radiology result is complete; follow up with provider / physician office for radiology results Final result Normal [facility] No Panel Informationon 05-14 [facility] XR LUMBAR 3V AP/LAT/L5-S1on 05-14-2023 XR LUMBAR [...] severe lumbar spine degenerative change as described. Bath Attendant: JENNIFER Transcribe Date/Time: May 14 2023 1:53P Dictated by : GABRIELA SANDERSON MD This examination was interpreted and the report reviewed and electronically signed by: GABRIELA SANDERSON MD on May 14 2023 1:54PM EST [id number] Normal [facility] XR PELVIS 1V APon 05-14-2023 XR [...] bony erosions. IMPRESSION: Degenerative changes as described. Bath Att[facility] Transcribe Date/Time: May 14 2023 1:52P Dictated by : GABRIELA SANDERSON MD This examination was interpreted and the report reviewed and electronically signed by: GABRIELA SANDERSON MD on May 14 2023 1:53PM EST [id number] [facility] C-REACTIVE PROTEIN (CRP)on 0 03-27-2023 CRP [Mass/Vol] <0.9 mg/dL [facility] ESR Westergren method (Bld) [Velocity]on 03-27-2023 ESR (Bld) [Velocity] 8 mm/h 0 - 20 mm/hr [facility] POINT OF CARE GLUCOSEon 04-0 Glucose [Mass/Vol] 133 mg/dL Critically high 74-106 T [facility] Comment on above: Performed By: #### P OCGLUC #### [facility] [address] [place] [address] Dr. Kris Castillo CBC with Auto Differentialon 12-02-2022 Absolute Eos # 0.20 [facility] Absolute Lymph # 2.10 [facility] Absolute Gooding # 0.30 [facility] Basophils (Bld) [#/Vol] 0.00 10*3/uL [facility] [employer] Basophils/100 WBC (Bld) 1 % 0 - 2 % [facility] Eosinophils/100 WBC (Bld) 3 % 0 - 4 % [facility] Hematocrit (Bld) [Volume fraction] 33.7 % Low 36 - 46 % [facility] Hemoglobin (Bld) [Mass/Vol] 11.3 g/dL Low 12.0 - 16.0 g/dL [facility] Interpretation and review of laboratory results Abnormal [facility] Lymphocytes/100 WBC (Bld) 36 % 24 - 44 % [facility] MCH (RBC) [Entitic mass] 29.2 pg 26 - 34 pg [facility] MCHC (RBC) [Mass/Vol] 33.5 g/dL 31 - 37 g/dL B [facility] MCV (RBC) [Entitic vol] 87.1 fL 80 - 100 fL [facility] Monocytes/100 WBC (Bld) 6 % 1 - 7 % [facility] Platelet distribution width (Bld) [Ratio] 15.9 % High 11.5 - 14.9 % [facility] Platelet mean volume (Bld) [Entitic vol] 7.5 fL 6.0 - 12.0 fL [facility] Platelets (Bld) [#/Vol] 255 10*3/uL [facility] RBC (Bld) [#/Vol] 3.87 10*6/uL Low 4.0 - 5.2 m/uL [facility] Segmented neutrophils/100 WBC (Bld) 54 % 36 - 66 % [facility] Segs Absolute 3.00 [facility] WBC (Bld) [#/Vol] 5.7 10*3/uL [facility] Comprehensive Metabolic Pane schuyler 12-02-2022 Albumin [Mass/Vol] 3.8 g/dL 3.5 - 5.2 g/dL [facility] ALP (Bld) [Catalytic activity/Vol] 79 U/L 35 - 104 U/L [facility] ALT [Catalytic activity/Vol] 14 U/L 5 - 33 U/L [facility] Anion gap [Moles/Vol] 10 mmol/L 9 - 17 mmol/L [facility] AST [Catalytic activity/Vol] 18 U/L NINF - 32 U/L [facility] Bilirubin [Mass/Vol] 0.5 mg/dL 0.3 - 1 .2 mg/dL [facility] Calcium [Mass/Vol] 9.6 mg/dL 8.6 - 10. 4 mg/dL [facility] Chloride [Moles/Vol] 105 mmol/L 98 - 10 7 mmol/L [facility] CO2 [Moles/Vol] 26 mmol/L 20 - 31 mmol/L [facility] Creatinine [Mass/Vol] 0.53 mg/dL 0.50 - 0.90 mg/dL [facility] GFR/1.73 sq M.predicted MDRD (S/P/Bld) [Vol rate/Area] - PINF [facility] Comment on above: Effective Aug 24, [...] 135 mg/dL High 70 - 99 mg/dL [facility] Interpretation and review of laboratory results Abnormal [facility] Potassium [Moles/Vol] 4.3 mmol/L 3.7 - 5.3 mmol/L [facility] Protein [Mass/Vol] 6.6 g/dL 6.4 - 8.3 g/dL [facility] Sodium [Moles/Vol] 141 mmol/L 135 - 144 mmol/L [facility] Urea nitrogen (BldV) [Mass/Vol] 14 mg/dL 8 - 23 mg/dL [facility] Folateon 12-02-2022 Folate 11 ng/mL 4.8 - PINF ng/mL [facility] Iron and TIBCon 12-02-2022 Iron [Mass/Vol] 81 ug/dL 37 - 145 ug/dL [facility] Iron Saturation 24 % 20 - 55 % [facility] TIBC 338 ug/dL 250 - 450 ug/dL [facility] UIBC 257 ug/dL 112 - 347 ug/dL [facility] Lipaseon 12-02-2022 Lipase [Catalytic activity/Vol] 16 U/L 13 - 60 U/L [facility] No Panel Informationon 12-02 [facility] Reticulocyteson 12-02-2022 Absolute Retic # 0.036 [facility] Retic % 0.9 % 0.5 - 2.0 % [facility] T4, Freeon 12-02-2022 Interpretation and review of laboratory results Abnormal [facility] Thyroxine, Free 1.95 ng/dL High 0.93 - 1.70 ng/dL [facility] TSH With Reflex Ft4on 2022 Interpretation and review of laboratory results Abnormal [facility] TSH Qn 0.08 m[IU]/L Low [facility] Vitamin B12on 12-02-2022 Cobalamin (Vitamin B12) [Mass/Vol] pg/mL High 232 - 1245 pg/mL [facility] Interpretation and review of laboratory results Abnormal [facility] XR WRIST RT MIN 3 Von [...] by: ALEX HUERTA Date: 2022-09-06 16:27 Normal [facility] LIPID PROFILEon 08-29-2022 CHOL-HDL RATIO NORM SEE BELOW Normal [facility] Comment on above: Result Comment: 3.3 - 4.4 LOW RISK 4.4 - 7.1 AVERAGE RISK 7.1 - 11.0 MODERATE RISK >11.0 HIGH RISK Performed By: #### C MREP #### [facility] [address] [address] [address] Kris Castillo Cholesterol [Mass/Vol] 157 mg/dL Normal <=200 [facility] Comment on above: Performed By: #### C MREP #### [facility] [address] [address] [address] Kris Castillo Cholesterol in HDL [Mass/Vol] 84 mg/dL Critically high 40-60 [facility] Comment on above: Performed By: #### C MREP #### [facility] [address] [address] [address] Kris Castillo Cholesterol in LDL [Mass/Vol] 62.4 mg/dL Normal [facility] Comment on above: Performed By: #### C MREP #### [facility] [address] [address] [address] Kris Castillo Cholesterol.total/Chol esterol in HDL [Mass ratio] 1.9 {ratio} Normal [facility] Comment on above: Performed By: #### C MREP #### [facility] [address] [address] [address] Kris Castillo HDL NORMAL > or = 60 mg/dl - LOW CARDIOVASCULAR RISK <40 mg/dl - HIGH CARDIOVASCULAR RISK Normal [facility] Comment on above: Performed By: #### C MREP #### [facility] [address] [address] [address] Kris Castillo LDL CALC NORMAL SEE BELOW Normal [facility] Comment on above: Result Comment: <100 mg/dl OPTIMAL 100 - 129 mg/dl NEAR OR ABOVE OPTIMAL 130 - 159 mg/dl BORDERLINE HIGH 160 - 189 mg/dl HIGH >190 mg/dl VERY HIGH Performed By: #### C MREP #### [facility] [address] [address] [address] Kris Castillo Triglyceride [Mass/Vol] 53 mg/dL Normal <=150 [facility] Comment on above: Performed By: #### C MREP #### [facility] [address] [address] [address] Kris Castillo VLDL CALC 10.6 mg/dL Normal [facility] Comment on above: Performed By: #### C MREP #### [facility] [address] [place] [address] Dr. Kris Castillo CARDIAC ROYA 3-6on 2 CK [Catalytic activity/Vol] 54 U/L Normal 26-192 [facility] Comment on above: Performed By: #### D DIM #### [facility] [address] [place] [address] Dr. Kris Castillo CK.MB [Mass/Vol] 1.12 ng/mL Normal <=3.60 [facility] Comment on above: Performed By: #### D DIM #### [facility] [address] [place] [address] Dr. Kris Castillo HSTROP 8.2 pg/mL Normal 4.0-51.3 [facility] Comment on above: Result Comment: CUT- OFF POINTS HAVE BEEN ESTABLISHED BASED ON THE FOURTH UNIVERSAL DEFINITIONS OF MYOCARDIAL INFARCTION. THE UPPER REFERENCE LIMIT (URL) OF TROPONIN, DEFINED THE 99TH PERCENTILE OF cTnI DISTRIBUTION IN A REFERENCE POPULATION, HAS BEEN CONFIRMED THE DECISION THRESHOLD FOR [place] DIAGNOSIS. Performed By: #### D DIM #### [facility] [address] [place] [address] Dr. Kris Castillo CK [Catalytic activity/Vol] 57 U/L Normal 26-192 [facility] Comment on above: Performed By: #### C MREP #### [facility] [address] [place] [address] Dr. Kris Castillo CK.MB [Mass/Vol] 1.25 ng/mL Normal <=3.60 [facility] Comment on above: Performed By: #### C MREP #### [facility] [address] [place] [address] Dr. Kris Castillo HSTROP 7.3 pg/mL Normal 4.0-51.3 [facility] Comment on above: Result Comment: CUT- OFF POINTS HAVE BEEN ESTABLISHED BASED ON THE FOURTH UNIVERSAL DEFINITIONS OF MYOCARDIAL INFARCTION. THE UPPER REFERENCE LIMIT (URL) OF TROPONIN, DEFINED THE 99TH PERCENTILE OF cTnI DISTRIBUTION IN A REFERENCE POPULATION, HAS BEEN CONFIRMED THE DECISION THRESHOLD FOR [place] DIAGNOSIS. Performed By: #### C MREP #### [facility] [address] [place] [address] Dr. Kris Castillo CARDIAC ROYA ADMITon 022 CK [Catalytic activity/Vol] 86 U/L Normal 26-192 [facility] Comment on above: Performed By: #### D DIM #### [facility] [address] [place] [address] Dr. Kris Castillo CK.MB [Mass/Vol] 1.65 ng/mL Normal <=3.60 [facility] Comment on above: Performed By: #### D DIM #### [facility] [address] [place] [address] Dr. Kris Castillo HSTROP 6.2 pg/mL Normal 4.0-51.3 [facility] Comment on above: Result Comment: CUT- OFF POINTS HAVE BEEN ESTABLISHED BASED ON THE FOURTH UNIVERSAL DEFINITIONS OF MYOCARDIAL INFARCTION. THE UPPER REFERENCE LIMIT (URL) OF TROPONIN, DEFINED THE 99TH PERCENTILE OF cTnI DISTRIBUTION IN A REFERENCE POPULATION, HAS BEEN CONFIRMED THE DECISION THRESHOLD FOR [place] DIAGNOSIS. Performed By: #### D DIM #### [facility] [address] [place] [address] Dr. Kris Castillo RAMSES 34 ng/mL Normal 9-82 [facility] Comment on above: Performed By: #### D DIM #### [facility] [address] [place] [address] Dr. Kris Castillo CBC AUTO DIFFon 08-28-2022 BASO # 0.1 103/ul Normal 0.0-0.1 [facility] Comment on above: Performed By: #### C BC #### [facility] [address] [place] [address] Dr. Kris Castillo Basophils/100 WBC (Bld) 0.6 % Normal 0.2-2.0 [facility] Comment on above: Performed By: #### C BC #### [facility] [address] [place] [address] Dr. Kris Castillo EO # 0.3 103/ul Normal 0.0-0.7 [facility] Comment on above: Performed By: #### C BC #### [facility] [address] [place] [address] Dr. Kris Castillo Eosinophils/100 WBC (Bld) 3.8 % Normal 0.9-7.0 [facility] Comment on above: Performed By: #### C BC #### [facility] [address] [place] [address] Dr. Kris Castillo Erythrocyte distribution width (RBC) [Ratio] 16.2 % Critically high 11.0-15.0 [facility] Comment on above: Performed By: #### C BC #### [facility] [address] [place] [address] Dr. Kris Castillo Hematocrit (Bld) [Volume fraction] 34.7 % Critically low 36.0-48.0 [facility] Comment on above: Performed By: #### C BC #### [facility] [address] [place] [address] Dr. Kris Castillo Hemoglobin (Bld) [Mass/Vol] 10.8 g/dL Critically low 12.0-16.0 [facility] Comment on above: Performed By: #### C BC #### [facility] [address] [place] [address] Dr. Kris Castillo IG # 0.02 10e3/ul Normal 0.00-0.03 [facility] Comment on above: Performed By: #### C BC #### [facility] [address] [place] [address] Dr. Kris Castillo IG % 0.3 % Normal 0.0-0.5 [facility] Comment on above: Performed By: #### C BC #### [facility] [address] [place] [address] Dr. Kris Castillo LYMPH # 2.2 103/ul Normal 1.2-3.8 [facility] Comment on above: Performed By: #### C BC #### [facility] [address] [place] [address] Dr. Kris Castillo Lymphocytes/100 WBC (Bld) 27.9 % Normal 20.5-60.0 [facility] Comment on above: Performed By: #### C BC #### [facility] [address] [place] [address] Dr. Kris Castillo MANUAL DIFF REQ NO Normal [facility] Comment on above: Performed By: #### C BC #### [facility] [address] [place] [address] Dr. Kris Castillo MCH (RBC) [Entitic mass] 27.7 pg Normal 26.7-34.0 [facility] Comment on above: Performed By: #### C BC #### [facility] [address] [place] [address] Dr. Kris Castillo MCHC (RBC) [Mass/Vol] 31.1 g/dL Normal 29.9-35.2 [facility] Comment on above: Performed By: #### C BC #### [facility] [address] [place] [address] Dr. Kris Castillo MCV (RBC) [Entitic vol] 89.0 fL Normal 81.0-99.0 [facility] Comment on above: Performed By: #### C BC #### [facility] [address] [place] [address] Dr. Kris Castillo MONO # 0.6 103/ul Normal 0.3-0.8 [facility] Comment on above: Performed By: #### C BC #### [facility] [address] [place] [address] Dr. rKis Castillo Monocytes/100 WBC (Bld) 7.6 % Normal 1.7-12.0 [facility] Comment on above: Performed By: #### C BC #### [facility] [address] [place] [address] Dr. Kris Castillo NEUT # 4.7 103/ul Normal 1.4-6.5 [facility] Comment on above: Performed By: #### C BC #### [facility] [address] [place] [address] Dr. Kris Castillo Neutrophils/100 WBC (Bld) 59.8 % Normal 43.0-75.0 [facility] Comment on above: Performed By: #### C BC #### [facility] [address] [address] [address] Kris Castillo Platelet mean volume (Bld) [Entitic vol] 9.5 fL Normal 9.5-13.5 [facility] Comment on above: Performed By: #### C BC #### [facility] [address] [address] [address] Kris Castillo PLT 264 103/ul Normal 150-450 [facility] Comment on above: Performed By: #### C BC #### [facility] [address] [address] [address] Kris Castillo RBC 3.90 106/ul Critically low 4.20-5.40 [facility] Comment on above: Performed By: #### C BC #### [facility] [address] [place] [address] Dr. Kris Castillo WBC 7.9 103/ul Normal 4.0-11.0 [facility] Comment on above: Performed By: #### C BC #### [facility] [address] [address] [address] Kris Castillo Covid-19 PCR ([facility])on SARS-CoV-2 (COVID-19) RNA JAYY+probe Ql (Unsp spec) Not detected Normal NOT DETECTED [facility] Comment on above: Result Comment: When diagnostic [...] for this test is supported by the [place] of Health and Human Service's declaration that [...] used). Performed By: #### C VDTBH #### [facility] [address] [place], [place] [address] Dr. Kris Castillo D-DIMERon 08-28-2022 D-DIMER 0.48 mg/L FEU Normal <=0.59 [facility] Comment on above: Performed By: #### D DIM #### [facility] [address] [place] [address] Dr. Kris Castillo D-DIMER COMMENTS SEE BELOW Normal [facility] Comment on above: Result Comment: [...] hospitalization. Performed By: #### D DIM #### [facility] [address] [place] [address] Dr. Kris Castillo LIPID PROFILEon 08-28-2022 CHOL-HDL RATIO NORM SEE BELOW Normal [facility] Comment on above: Result Comment: 3.3 - 4.4 LOW RISK 4.4 - 7.1 AVERAGE RISK 7.1 - 11.0 MODERATE RISK >11.0 HIGH RISK Performed By: #### D DIM #### [facility] [address] [place] [address] Dr. Kris Castillo Cholesterol [Mass/Vol] 151 mg/dL Normal <=200 [facility] Comment on above: Performed By: #### D DIM #### [facility] [address] [id number] [address] Kris Castillo Cholesterol in HDL [Mass/Vol] 77 mg/dL Critically high 40-60 [facility] Comment on above: Performed By: #### D DIM #### [facility] [address] [place] [address] Dr. Kris Castillo Cholesterol in LDL [Mass/Vol] 65.6 mg/dL Normal [facility] Comment on above: Performed By: #### D DIM #### [facility] [address] [address] [address] Kris Castillo Cholesterol.total/Chol esterol in HDL [Mass ratio] 2.0 {ratio} Normal [facility] Comment on above: Performed By: #### D DIM #### [facility] [address] [address] [address] Kris Castillo HDL NORMAL > or = 60 mg/dl - LOW CARDIOVASCULAR RISK <40 mg/dl - HIGH CARDIOVASCULAR RISK Normal [facility] Comment on above: Performed By: #### D DIM #### [facility] [address] [address] [address] Kris Castillo LDL CALC NORMAL SEE BELOW Normal [facility] Comment on above: Result Comment: <100 mg/dl OPTIMAL 100 - 129 mg/dl NEAR OR ABOVE OPTIMAL 130 - 159 mg/dl BORDERLINE HIGH 160 - 189 mg/dl HIGH >190 mg/dl VERY HIGH Performed By: #### D DIM #### [facility] [address] [address] [address] Kris Castillo Triglyceride [Mass/Vol] 42 mg/dL Normal <=150 [facility] Comment on above: Performed By: #### D DIM #### [facility] [address] [address] [address] Kris Castillo VLDL CALC 8.4 mg/dL Normal [facility] Comment on above: Performed By: #### D DIM #### [facility] [address] [address] [address] Kris Castillo POINT OF CARE GLUCOSEon 10-0 Glucose [Mass/Vol] 108 mg/dL Critically high 74-106 [facility] Comment on above: Performed By: #### D DIM #### [facility] [address] [address] [address] Kris Castillo PROF 14(COMP METB)on 022 Albumin [Mass/Vol] 3.4 g/dL Normal 3.4-5.0 [facility] Comment on above: Performed By: #### D DIM #### [facility] [address] [place] [address] Dr. Kris Castillo Albumin/Globulin [Mass ratio] 0.9 {ratio} Normal [facility] Comment on above: Performed By: #### D DIM #### [facility] [address] [place] [address] Dr. Kris Castillo ALP [Catalytic activity/Vol] 88 U/L Normal 46-116 [facility] Comment on above: Performed By: #### D DIM #### [facility] [address] [place] [address] Dr. Kris Castillo ALT [Catalytic activity/Vol] 16 U/L Normal 14-59 [facility] Comment on above: Performed By: #### D DIM #### [facility] [address] [place] [address] Dr. Kris Castillo Anion gap [Moles/Vol] 9.5 mmol/L Normal [facility] Comment on above: Performed By: #### D DIM #### [facility] [address] [place] [address] Dr. Kris Castillo AST [Catalytic activity/Vol] 18 U/L Normal 15-37 [facility] Comment on above: Performed By: #### D DIM #### [facility] [address] [place] [address] Dr. Kris Castillo Bilirubin [Mass/Vol] 0.5 mg/dL Normal 0.2-1.0 [facility] Comment on above: Performed By: #### D DIM #### [facility] [address] [place] [address] Dr. Kris Castillo Calcium [Mass/Vol] 9.7 mg/dL Normal 8.5-10.1 [facility] Comment on above: Performed By: #### D DIM #### [facility] [address] [place] [address] Dr. Kris Castillo Chloride [Moles/Vol] 103 mmol/L Normal 98-107 [facility] Comment on above: Performed By: #### D DIM #### [facility] [address] [place] [address] Dr. Kris Castillo CO2 [Moles/Vol] 28.4 mmol/L Normal 21.0-32.0 [facility] Comment on above: Performed By: #### D DIM #### [facility] [address] [address] [address] Kris Castillo Creatinine [Mass/Vol] 0.78 mg/dL Normal 0.55-1.02 [facility] Comment on above: Performed By: #### D DIM #### [facility] [address] [address] [address] Kris Castillo EGFR-AF IRANIAN >60 Normal >=60 [facility] Comment on above: Performed By: #### D DIM #### [facility] [address] [address] [address] Kris Castillo EGFR-NON AF IRANIAN >60 Normal >=60 [facility] Comment on above: Performed By: #### D DIM #### [facility] [address] [place] [address] Dr. Kris Castillo Globulin (S) [Mass/Vol] 3.6 g/dL Normal [facility] Comment on above: Performed By: #### D DIM #### [facility] [address] [address] [address] Kris Catsillo Glucose [Mass/Vol] 111 mg/dL Critically high 74-106 [facility] Comment on above: Performed By: #### D DIM #### [facility] [address] [place] [address] Dr. Kris Castillo Potassium [Moles/Vol] 3.9 mmol/L Normal 3.5-5.1 [facility] Comment on above: Performed By: #### D DIM #### [facility] [address] [place] [address] Dr. Kris Castillo Protein [Mass/Vol] 7.0 g/dL Normal 6.4-8.2 [facility] Comment on above: Performed By: #### D DIM #### [facility] [address] [address] [address] Kris Castillo Sodium [Moles/Vol] 137 mmol/L Normal 136-145 [facility] Comment on above: Performed By: #### D DIM #### [facility] [address] [place], [place] [address] Dr. Kris Castillo Urea nitrogen [Mass/Vol] 21.0 mg/dL Critically high 7.0-18.0 [facility] Comment on above: Performed By: #### D DIM #### [facility] [address] [place], [place] [address] Dr. Kris Castillo Urea nitrogen/Creatinine [Mass ratio] 26.9 mg/mg Normal [facility] Comment on above: Performed By: #### D DIM #### [facility] [address] [place], [place] [address] Dr. Kris Castillo XR CHEST 1 Von [...] GABRIELA MITTAL Date: 2022-08-28 02:26 Normal [facility] CULTURE URINEon 07-27-2022 CULTURE URINE Isolate 1 [...] F Trimethoprim/Sulfame thoxazole >=320 R F Normal [facility] Comment on above: Performed By: #### D DIM #### [facility] [address] [place] [address] Dr. Kris Castillo ACETONE SERUMon 07-25-2022 ACETONE Negative Normal NEGATIVE [facility] Comment on above: Performed By: #### C MREP #### [facility] [address] [place] [address] Dr. Kris Castillo BNPon 07-25-2022 Natriuretic peptide B (Bld) [Mass/Vol] 111.0 pg/mL Normal <=900.0 [facility] Comment on above: Performed By: #### C MREP #### [facility] [address] [place] [address] Dr. Kris Castillo CARDIAC ROYA ADMITon 022 CK [Catalytic activity/Vol] 61 U/L Normal 26-192 [facility] Comment on above: Performed By: #### C MREP #### [facility] [address] [place] [address] Dr. Kris Castillo CK.MB [Mass/Vol] 1.55 ng/mL Normal <=3.60 [facility] Comment on above: Performed By: #### C MREP #### [facility] [address] [place] [address] Dr. Kris Castillo HSTROP 7.1 pg/mL Normal 4.0-51.3 [facility] Comment on above: Result Comment: CUT- OFF POINTS HAVE BEEN ESTABLISHED BASED ON THE FOURTH UNIVERSAL DEFINITIONS OF MYOCARDIAL INFARCTION. THE UPPER REFERENCE LIMIT (URL) OF TROPONIN, DEFINED THE 99TH PERCENTILE OF cTnI DISTRIBUTION IN A REFERENCE POPULATION, HAS BEEN CONFIRMED THE DECISION THRESHOLD FOR [place] DIAGNOSIS. Performed By: #### C MREP #### [facility] [address] [place] [address] Dr. Kris Castillo RAMSES 29 ng/mL Normal 9-82 [facility] Comment on above: Performed By: #### C MREP #### [facility] [address] [place] [address] Dr. Kris Castillo CBC AUTO DIFFon 09-03-2022 BASO # 0.1 103/ul Normal 0.0-0.1 [facility] Comment on above: Performed By: #### C BC #### [facility] [address] [place] [address] Dr. Kris Castillo Basophils/100 WBC (Bld) 0.6 % Normal 0.2-2.0 [facility] Comment on above: Performed By: #### C BC #### [facility] [address] [place] [address] Dr. Kris Castillo EO # 0.2 103/ul Normal 0.0-0.7 [facility] Comment on above: Performed By: #### C BC #### [facility] [address] [place] [address] Dr. Kris Castillo Eosinophils/100 WBC (Bld) 2.6 % Normal 0.9-7.0 [facility] Comment on above: Performed By: #### C BC #### [facility] [address] [place] [address] Dr. Kris Castillo Erythrocyte distribution width (RBC) [Ratio] 17.4 % Critically high 11.0-15.0 [facility] Comment on above: Performed By: #### C BC #### [facility] [address] [place] [address] Dr. Kris Castillo Hematocrit (Bld) [Volume fraction] 34.5 % Critically low 36.0-48.0 [facility] Comment on above: Performed By: #### C BC #### [facility] [address] [place] [address] Dr. Kris Castillo Hemoglobin (Bld) [Mass/Vol] 11.0 g/dL Critically low 12.0-16.0 [facility] Comment on above: Performed By: #### C BC #### [facility] [address] [place] [address] Dr. Kris Castillo IG # 0.03 10e3/ul Normal 0.00-0.03 [facility] Comment on above: Performed By: #### C BC #### [facility] [address] [place] [address] Dr. Kris Castillo IG % 0.3 % Normal 0.0-0.5 [facility] Comment on above: Performed By: #### C BC #### [facility] [address] [place] [address] Dr. Kris Castillo LYMPH # 2.0 103/ul Normal 1.2-3.8 [facility] Comment on above: Performed By: #### C BC #### [facility] [address] [place] [address] Dr. Kris Castillo Lymphocytes/100 WBC (Bld) 21.8 % Normal 20.5-60.0 [facility] Comment on above: Performed By: #### C BC #### [facility] [address] [place] [address] Dr. Kris Castillo MANUAL DIFF REQ NO Normal [facility] Comment on above: Performed By: #### C BC #### [facility] [address] [place] [address] Dr. Kris Castillo MCH (RBC) [Entitic mass] 27.8 pg Normal 26.7-34.0 [facility] Comment on above: Performed By: #### C BC #### [facility] [address] [place] [address] Dr. Kris Castillo MCHC (RBC) [Mass/Vol] 31.9 g/dL Normal 29.9-35.2 [facility] Comment on above: Performed By: #### C BC #### [facility] [address] [place] [address] Dr. Kris Castillo MCV (RBC) [Entitic vol] 87.3 fL Normal 81.0-99.0 [facility] Comment on above: Performed By: #### C BC #### [facility] [address] [place] [address] Dr. Kris Castillo MONO # 0.5 103/ul Normal 0.3-0.8 [facility] Comment on above: Performed By: #### C BC #### [facility] [address] [place] [address] Dr. Kris Castillo Monocytes/100 WBC (Bld) 5.9 % Normal 1.7-12.0 [facility] Comment on above: Performed By: #### C BC #### [facility] [address] [address] [address] Kris Castillo NEUT # 6.2 103/ul Normal 1.4-6.5 [facility] Comment on above: Performed By: #### C BC #### [facility] [address] [address] [address] Kris Castillo Neutrophils/100 WBC (Bld) 68.8 % Normal 43.0-75.0 [facility] Comment on above: Performed By: #### C BC #### [facility] [address] [place] [address] Dr. Kris Castillo Platelet mean volume (Bld) [Entitic vol] 9.5 fL Normal 9.5-13.5 [facility] Comment on above: Performed By: #### C BC #### [facility] [address] [place] [address] Dr. Kris Castillo PLT 231 103/ul Normal 150-450 [facility] Comment on above: Performed By: #### C BC #### [facility] [address] [place] [address] Dr. Kris Castillo RBC 3.95 106/ul Critically low 4.20-5.40 [facility] Comment on above: Performed By: #### C BC #### [facility] [address] [place] [address] Dr. Kris Castillo WBC 9.0 103/ul Normal 4.0-11.0 [facility] Comment on above: Performed By: #### C BC #### [facility] [address] [place] [address] HEAD WO CONon [...] ears demonstrate no substantial mucosal disease. Bilateral cachil dehe ocular lens replacement.Nonspeci fic calcifications are present [...] ASTRID RODRIGUEZ Date: 2022-07-25 12:48 Normal [facility] ER URINE PROFILEon 2 Bilirubin Ql (U) Negative Normal NEGATIVE [facility] Comment on above: Performed By: #### U MICRO, ERUR #### [facility] [address] [place] [address] Dr. Kirs Castillo Clarity (U) CLEAR Normal CLEAR [facility] Comment on above: Performed By: #### U MICRO, ERUR #### [facility] [address] [place] [address] Dr. Kris Castillo Color (U) LT. YELLOW Normal YELLOW [facility] Comment on above: Performed By: #### U MICRO, ERUR #### [facility] [address] [address] [address] Kris Castillo ERUAHD A micrscopic examination will be performed if indicated. Normal [facility] Comment on above: Performed By: #### U MICRO, ERUR #### [facility] [address] [place] [address] Dr. Kris Castillo Glucose Ql (U) Negative Normal NEGATIVE [facility] Comment on above: Performed By: #### U MICRO, ERUR #### [facility] [address] [place] [address] Dr. Kris Castillo Hemoglobin Ql (U) Negative Normal NEGATIVE [facility] Comment on above: Performed By: #### U MICRO, ERUR #### [facility] [address] [address] [address] Kris Castillo Ketones Ql (U) Negative Normal NEGATIVE [facility] Comment on above: Performed By: #### U MICRO, ERUR #### [facility] [address] [place] [address] Dr. Kris Castillo LEUKOCYTES SMALL Abnormal NEGATIVE [facility] Comment on above: Performed By: #### U MICRO, ERUR #### [facility] [address] [address] [address] Kris Castillo Nitrite Ql (U) Negative Normal NEGATIVE [facility] Comment on above: Performed By: #### U MICRO, ERUR #### [facility] [address] [place] [address] Dr. Kris Castillo pH (U) 6.0 [pH] Normal 5-9 [facility] Comment on above: Performed By: #### U MICRO, ERUR #### [facility] [address] [place] [address] Dr. Kris Castillo SPEC GRAVITY <=1.005 Abnormal 1.005-<=1.02 5 [facility] Comment on above: Performed By: #### U MICRO, ERUR #### [facility] [address] [place] [address] Dr. Kris Castillo UA PROTEIN Negative Normal NEGATIVE/ TRACE [facility] Comment on above: Performed By: #### U MICRO, ERUR #### [facility] [address] [address] [address] Kris Castillo UR MICRO IND INDICATED Normal [facility] Comment on above: Performed By: #### U MICRO, ERUR #### [facility] [address] [place] [address] Dr. Kris Castillo Urobilinogen Qn (U) 0.2 {Yaritza'U}/dL Normal 0.2 - 1. 0 [facility] Comment on above: Performed By: #### U MICRO, ERUR #### [facility] [address] [address] [address] Kris Castillo PH VENOUS BLOODon 07-25-2022 PCO2 VENOUS 49.1 mmHg Normal 40.0-52.0 [facility] Comment on above: Performed By: #### P T, PTT #### [facility] [address] [address] [address] Kris Castillo pH VENOUS 7.320 Critically low 7.330-7.430 [facility] Comment on above: Performed By: #### P T, PTT #### [facility] [address] [place] [address] Dr. Kris Castillo PROF 14(COMP METB)on 022 Albumin [Mass/Vol] 3.5 g/dL Normal 3.4-5.0 [facility] Comment on above: Performed By: #### C MREP #### [facility] [address] [place] [address] Dr. Kris Castillo Albumin/Globulin [Mass ratio] 1.0 {ratio} Normal [facility] Comment on above: Performed By: #### C MREP #### [facility] [address] [place] [address] Dr. Kris Castillo ALP [Catalytic activity/Vol] 82 U/L Normal 46-116 [facility] Comment on above: Performed By: #### C MREP #### [facility] [address] [place] [address] Dr. Kris Castillo ALT [Catalytic activity/Vol] 18 U/L Normal 14-59 [facility] Comment on above: Performed By: #### C MREP #### [facility] [address] [place] [address] Dr. Kris Castillo Anion gap [Moles/Vol] 15.9 mmol/L Normal [facility] Comment on above: Performed By: #### C MREP #### [facility] [address] [place] [address] Dr. rKis Castillo AST [Catalytic activity/Vol] 14 U/L Critically low 15-37 [facility] Comment on above: Performed By: #### C MREP #### [facility] [address] [address] [address] Kris Castillo Bilirubin [Mass/Vol] 0.4 mg/dL Normal 0.2-1.0 [facility] Comment on above: Performed By: #### C MREP #### [facility] [address] [place] [address] Dr. Kris Castillo Calcium [Mass/Vol] 8.6 mg/dL Normal 8.5-10.1 [facility] Comment on above: Performed By: #### C MREP #### [facility] [address] [address] [address] Kris Castillo Chloride [Moles/Vol] 102 mmol/L Normal 98-107 [facility] Comment on above: Performed By: #### C MREP #### [facility] [address] [place] [address] Dr. Kris Castillo CO2 [Moles/Vol] 22.7 mmol/L Normal 21.0-32.0 [facility] Comment on above: Performed By: #### C MREP #### [facility] [address] [place] [address] Dr. Kris Castillo Creatinine [Mass/Vol] 0.63 mg/dL Normal 0.55-1.02 [facility] Comment on above: Performed By: #### C MREP #### [facility] [address] [place] [address] Dr. Kris Castillo EGFR-AF IRANIAN >60 Normal >=60 [facility] Comment on above: Performed By: #### C MREP #### [facility] [address] [place] [address] Dr. Kris Castillo EGFR-NON AF IRANIAN >60 Normal >=60 [facility] Comment on above: Performed By: #### C MREP #### [facility] [address] [place] [address] Dr. rKis Castillo Globulin (S) [Mass/Vol] 3.4 g/dL Normal [facility] Comment on above: Performed By: #### C MREP #### [facility] [address] [place] [address] Dr. Kris Castillo Glucose [Mass/Vol] 92 mg/dL Normal 74-106 [facility] Comment on above: Performed By: #### C MREP #### [facility] [address] [address] [address] Kris Castillo Potassium [Moles/Vol] 3.6 mmol/L Normal 3.5-5.1 [facility] Comment on above: Performed By: #### C MREP #### [facility] [address] [address] [address] Kris Castillo Protein [Mass/Vol] 6.9 g/dL Normal 6.4-8.2 [facility] Comment on above: Performed By: #### C MREP #### [facility] [address] [address] [address] Kris Castillo Sodium [Moles/Vol] 137 mmol/L Normal 136-145 [facility] Comment on above: Performed By: #### C MREP #### [facility] [address] [address] [address] Kris Castillo Urea nitrogen [Mass/Vol] 24.0 mg/dL Critically high 7.0-18.0 [facility] Comment on above: Performed By: #### C MREP #### [facility] [address] [place] [address] Dr. Kris Castillo Urea nitrogen/Creatinine [Mass ratio] 38.1 mg/mg Normal [facility] Comment on above: Performed By: #### C MREP #### [facility] [address] [address] [address] Kris Castillo PROTIMEon 07-25-2022 INR Coag (PPP) [Relative time] 1.01 {INR} Normal [facility] Comment on above: Performed By: #### P T, PTT #### [facility] [address] [place] [address] Dr. Kris Castillo INR GUIDELINES SEE BELOW Normal [facility] Comment on above: Result Comment: ISAAC RED INR: 2.0 - 3.0 CONDITIONS NOT LISTED BELOW 2.5 - 3.5 FOR PROSTHETIC HEART VALVE REPLACEMENT 2.5 - 3.5 RECURRENT THROMBOSIS Performed By: #### P T, PTT #### [facility] [address] [place] [address] Dr. Kris Castillo PT Coag (PPP) [Time] 10.9 s Normal 9.0-11.6 [facility] Comment on above: Performed By: #### P T, PTT #### [facility] [address] [place] [address] Dr. Kris Castillo PTTon 07-25-2022 aPTT Coag (Bld) [Time] 27.6 s Normal 22.3-36.2 [facility] e [facility] Comment on above: Performed By: #### P T, PTT #### [facility] [address] [place] [address] Dr. Kris Castillo SARS-CoV-2 (COVID-19) RNA NA A+probe Ql (Resp)on 07-25-2022 SARS-CoV-2 (COVID-19) RNA JAYY+probe Ql (Unsp spec) Negative [facility] Other URINE MICROSCOPIC ONLYon BACTERIA MODERATE Abnormal NONE SEEN [facility] Comment on above: Performed By: #### U MICRO, ERUR #### [facility] [address] [place] [address] Dr. Kris Castillo Bacteria identified Cx Nom (U) INDICATED Normal [facility] Comment on above: Performed By: #### U MICRO, ERUR #### [facility] [address] [place] [address] Dr. Kris Castillo CAST NONE SEEN Normal NONE SEEN [facility] Comment on above: Performed By: #### U MICRO, ERUR #### [facility] [address] [place] [address] Dr. Kris Castillo Crystals LM Nom (Urine sed) NONE SEEN Normal NONE SEEN [facility] Comment on above: Performed By: #### U MICRO, ERUR #### [facility] [address] [place] [address] Dr. Kris Castillo Epithelial cells LM Ql (Urine sed) FEW Abnormal NONE SEEN /RARE [facility] Comment on above: Performed By: #### U MICRO, ERUR #### [facility] [address] [address] [address] Kris Castillo MUCOUS NONE SEEN Normal NONE SEEN [facility] Comment on above: Performed By: #### U MICRO, ERUR #### [facility] [address] [address] [address] Kris Castillo RBC 0-2 Normal 0-2 [facility] Comment on above: Performed By: #### U MICRO, ERUR #### [facility] [address] [address] [address] Kris Castillo WBC 2-5 Abnormal NONE SEEN [facility] Comment on above: Performed By: #### U MICRO, ERUR #### [facility] [address] [address] [address] Kris Castillo XR CHEST 1 Von [...] by: BILL JONES Date: 2022-07-25 12:52 Normal [facility] CBC Auto Differentialon 05- Absolute Eos # 0.00 [facility] th Absolute Lymph # 1.40 [facility] Absolute Gooding # 0.30 [facility] Basophils (Bld) [#/Vol] 0.10 10*3/uL [employer] Basophils/100 WBC (Bld) 1 % 0 - 2 % [employer] Eosinophils/100 WBC (Bld) 0 % 0 - 4 % [employer] Hematocrit (Bld) [Volume fraction] 35.2 % Low 36 - 46 % [employer] Hemoglobin.gastrointes tinal spec 1 Ql (Stl) 11.2 g/dL Low 12.0 - 16.0 g/dL [facility] Interpretation and review of laboratory results Abnormal [employer] Lymphocytes/100 WBC (Bld) 14 % Low 24 - 44 % [employer] MCH (RBC) [Entitic mass] 27.7 pg 26 - 34 pg [facility] MCHC (RBC) [Mass/Vol] 31.9 g/dL 31 - 37 g/dL [facility] MCV (RBC) [Entitic vol] 86.8 fL 80 - 100 fL [facility] Monocytes/100 WBC (Bld) 3 % 1 - 7 % [facility] Platelet distribution width (Bld) [Ratio] 16.5 % High 11.5 - 14.9 % [facility] Platelet mean volume (Bld) [Entitic vol] 6.8 fL 6.0 - 12.0 fL [facility] Platelets (Bld) [#/Vol] 290 10*3/uL [facility] RBC (Bld) [#/Vol] 4.06 10*6/uL 4.0 - 5.2 m/uL [facility] Segmented neutrophils/100 WBC (Bld) 82 % High 36 - 66 % [facility] Segs Absolute [facility].50 [facility] W[facility] (Bld) [#/Vol] 10.3 10*3/uL [facility] CBC with Auto Differentialon 04-07-2022 Absolute Eos # 0.00 [facility] th Absolute Lymph # 1.40 [facility] He alth Absolute [place] # 0.30 [facility] lth Basophils (Bld) [#/Vol] 0.10 10*3/uL [facility] Basophils/100 WBC (Bld) 1 % 0 - 2 % [facility] Eosinophils/100 WBC (Bld) 0 % 0 - 4 % [facility] Hematocrit (Bld) [Volume fraction] 35.2 % Low 36 - 46 % [facility] Hemoglobin.gastrointes tinal spec 1 Ql (Stl) 11.2 g/dL Low 12.0 - 16.0 g/dL [facility] Interpretation and review of laboratory results Abnormal [facility] Lymphocytes/100 WBC (Bld) 14 % Low 24 - 44 % [facility] MCH (RBC) [Entitic mass] 27.7 pg 26 - 34 pg [facility] MCHC (RBC) [Mass/Vol] 31.9 g/dL 31 - 37 g/dL [facility] MCV (RBC) [Entitic vol] 86.8 fL 80 - 100 fL [facility] Monocytes/100 WBC (Bld) 3 % 1 - 7 % [facility] Platelet distribution width (Bld) [Ratio] 16.5 % High 11.5 - 14.9 % [facility] Platelet mean volume (Bld) [Entitic vol] 6.8 fL 6.0 - 12.0 fL [facility] Platelets (Bld) [#/Vol] 290 10*3/uL [facility] RBC (Bld) [#/Vol] 4.06 10*6/uL 4.0 - 5.2 m/uL [facility] Segmented neutrophils/100 WBC (Bld) 82 % High 36 - 66 % [facility] Segs Absolute 8.50 [facility] Healt h WBC (Bld) [#/Vol] 10.3 10*3/uL [facility] Iron And TIBCon 04-07-2022 Interpretation and review of laboratory results Abnormal [facility] Iron [Mass/Vol] 34 ug/dL Low 37 - 145 ug/dL [facility] Iron Saturation 8 % Low 20 - 55 % [facility] 413 ug/dL 250 - 450 ug/dL [facility] UIBC 379 ug/dL High 112 - 347 ug/dL [facility] COVID Quick Testingon 2021 Result Negative [facility] Other Quick Fluon 04-06-2022 FLUAV Ab CF (S) [Titer] Negative [facility] Other FLUBV Ab CF (S) [Titer] Negative [facility] Other Laboratory - Microbiology an d Antimicrobial susceptibilityon 09-17-2021 SARS-CoV-2 (COVID-19) RNA JAYY+probe Ql (Unsp spec) -[address] Work Phone: No Panel Informationon 09-17 18\S\18 Normal 9-[address] Work Phone: 27.4\S\27.4 Normal 25.1-36.[address] Work Phone: Comment on above: PERFORMED BY:[address] [address] [address] [place], [place] [id number] MEDICAL DIRECTORKIA MORE M.D. 1.1\S\1.1 Normal [facility] [address] [place] Work Phone: Comment on above: [...] valves: 3 - 4.5 12.5\S\12.5 Normal 9.0-12.9 [facility] [address] [place] Work Phone: 24.9\S\24.9 Normal 22.0-30.0 [facility] [address] [place] Work Phone: 106\S\106 Normal 95-114 [facility] [address] [place] Work Phone: 3.8\S\3.8 Normal 3.5-5.1 [facility] [address] [place] Work Phone: 140\S\140 Normal 136-146 [facility] [address] [place] Work Phone: [facility] [address] [place] Work Phone: > 60 Normal [facility] [address] [place] Work Phone: Comment on above: GFR estimated refere nce range: According to KDOQI guidelines, <60 ml/min/1.73m2 is sufficient to diagnose a patient with chronic kidney disease.PERFORMED BY:[id number] [place] [id number] MEDICAL DIRECTORKIA MORE M.D. 0.57\S\0.57 Normal 0.44-1.03 [facility] [address] [place] Work Phone: 46.1\S\46.1 Normal . [facility] [address] [place] Work Phone: 7.2\S\7.2 Normal . [facility] [address] [place] Work Phone: 267\S\267 Normal 150-450 [facility] [address] [place] Work Phone: 20.2\S\20.2 above high threshold 11.9-15.3 -[facility] [address] [place] Work Phone: 30.4\S\30.4 below low threshold 32.0-35.0 -[facility] [address] [place] Work Phone: 20.9\S\20.9 below low threshold 24.7-34.3 -[facility] [address] [place] Work Phone: 2.1\S\2.1 Normal 1.8-7.7 -[facility] [address] [place] Work Phone: 0.0\S\0.0 Normal 0-0.5 -[facility] [address] [place] Work Phone: 1.9\S\1.9 Normal 1.00-4.8 -[facility] [address] [place] Work Phone: 4.5\S\4.5 Normal . -[facility] [address] [place] Work Phone: 40.3\S\40.3 Normal . [facility] [address] [place] Work Phone: Moderate Normal -[facility] [address] [place] Work Phone: 0.1\S\0.1 Normal 0.0-0.2 -[facility] [address] [place] Work Phone: 0.2\S\0.2 Normal 0.0-0.45 -[facility] [address] [place] Work Phone: 0.3\S\0.3 Normal 0.0-0.8 [facility] [address] [place] Work Phone: Normal Normal Normal [facility] [address] [place] Work Phone: Comment on above: PERFORMED BY:[address] [address] [address] [place], [place] [id number] MEDICAL DIRECTORKIA MORE M.D. Slight Normal [facility] [address] [place] Work Phone: 68.8\S\68.8 below low threshold 80-100 [facility] [address] [place] Work Phone: 26.3\S\26.3 below low threshold 34.0-46.4 [facility] [address] [place] Work Phone: 8.0\S\8.0 below low threshold 11.8-15.4 [facility] [address] [place] Work Phone: 3.82\S\3.82 Normal 3.60-5.00 [facility] [address] [place] Work Phone: 4.6\S\4.6 Normal 3.8-11.6 [facility] [address] [place] Work Phone: [facility] [address] [place] Work Phone: Laboratory - Chemistry and C hemistry - challengeon 09-09-2021 Cholesterol [Mass/Vol] 164\S\164 Normal 140-200 [facility] [address] [place] Work Phone: Comment on above: Chol less than 200 m g/dl low risk Chol 201-239 mg/dl borderline risk Chol 240 mg/dl and greater high risk Cholesterol in LDL [Mass/Vol] 90\S\90 Normal 0-100 [facility] [address] [place] Work Phone: Comment on above: LDL ATP III CLASSIFI CATION LDL less than 100 mg/dL Optimal LDL 100-129 mg/dL Near or above optimal LDL 130-159 mg/dL Borderline high LDL 160-189 mg/dL High LDL greater than 189 mg/dL Very high Laboratory - Microbiology an d Antimicrobial susceptibilityon 09-09-2021 SARS-CoV-2 (COVID-19) RNA JAYY+probe Ql (Unsp spec) [facility] [address] [place] Work Phone: No Panel Informationon 09-09 29.7\S\29.7 Normal 25.1-36.5 [facility] [address] [place] Work Phone: Comment on above: PERFORMED BY:[address] [address] [address] [place], [place] [phone] MEDICAL DIRECTORKIA MORE M.D. 1.2\S\1.[address] Work Phone: Comment on above: INR [...] - 4.5 13.3\S\13.3 above high threshold 9.0-12.9 [facility] [address] [place] Work Phone: 24.8\S\24.8 Normal 22.0-30.0 [facility] [address] [place] Work Phone: 106\S\106 Normal 95-114 [facility] [place] Work Phone: 4.0\S\4.0 Normal 3.5-5.1 [facility] [address] [place] Work Phone: 140\S\140 Normal 136-146 [facility] [address] [place] Work Phone: Slight Normal -[facility] [address] [place] Work Phone: Comment on above: PERFORMED BY:[facility] [place] [id number] MEDICAL DIRECTORROCÍOBANNER GATEWAY [facility] DERIK Ornelas Normal Normal Normal -[facility] [address] [place] Work Phone: Moderate Normal -[facility] [address] [place] Work Phone: 0.1\S\0.1 Normal 0.0-0.2 -[facility] [address] [place] Work Phone: 0.3\S\0.3 Normal 0.0-0.45 [facility] [address] [place] Work Phone: 0.4\S\0.4 Normal 0.0-0.8 [facility] [address] [place] Work Phone: 2.1\S\2.1 Normal 1.00-4.8 -[facility] [address] [place] Work Phone: 2.6\S\2.6 Normal 1.8-7.7 -[facility] [address] [place] Work Phone: Comment on above: PERFORMED BY:[facility] [id number] MEDICAL DIRECTORKIA MORE M.D. 0.0\S\0.0 Normal 0-0.5 -[facility] [address] [place] Work Phone: 1.1\S\1.1 Normal . [facility] [address] [place] Work Phone: 5.3\S\5.3 Normal . [facility] [address] [place] Work Phone: 7.2\S\7.2 Normal . [facility] [place] Work Phone: 39.2\S\39.2 Normal . -[facility] [address] [place] Work Phone: 47.2\S\47.2 Normal . [facility] [address] [place] Work Phone: 6.8\S\6.8 Normal 6.3-10.7 -[facility] [address] [place] Work Phone: 332\S\332 Normal 150-450 -[facility] [place] Work Phone: 20.1\S\20.1 above high threshold 11.9-15.3 -[facility] [place] Work Phone: 29.8\S\29.8 below low threshold 32.0-35.0 -[facility] [address] [place] Work Phone: 20.7\S\20.7 below low threshold 24.7-34.3 -[facility] [address] [place] Work Phone: 69.2\S\69.2 below low threshold 80-100 -[facility] [place] Work Phone: 27.8\S\27.8 below low threshold 34.0-46.4 -[facility] [place] Work Phone: 8.3\S\8.3 below low threshold 11.8-15.4 -[facility] [place] Work Phone: 4.01\S\4.01 Normal 3.60-5.00 -[facility] [place] Work Phone: 5.5\S\5.5 Normal 3.8-11.6 -[facility] [place] Work Phone: 11\S\11 Normal [facility] [employer] [employer] [facility] [place] Work Phone: 57\S\57 Normal 35-149 [email or web address] [place] Work Phone: Comment on above: TRIG ATP III CLASSIF ICATION TRIG less than 150 mg/dL Normal TRIG 150-199 mg/dL Borderline high TRIG 200-500 mg/dL High TRIG greater than 500 mg/dL Very high Standard traceable to the Center for Disease Conrtrol and Prevention (CDC) test method. 63\S\63 Normal 35-85 [facility] Work Phone: Comment on above: HDL CHOL ATP-III CLA SSIFICATION Cardiovascular Risk HDL > or equal to 60 mg/dL LOW HDL < 40 mg/dL HIGH > 60 Normal [facility] [email or web address] [place] Work Phone: Comment on above: GFR estimated refere nce range: According to KDOQI guidelines, <60 ml/min/1.73m2 is sufficient to diagnose a patient with chronic kidney disease. 0.56\S\0.56 Normal 0.44-1.03 [facility] [email or web address] [place] Work Phone: 19\S\19 Normal 9-23 [facility] [place] Work Phone: [email or web address] [place] Work Phone: [email or web address] [place] Work Phone: Office Visit (Cardiology)on 09-02-2021 Follow-up [...] Hospital Evaluation and Treatment Evaluate AND Treat [facility] diagnostic staff to initiate [facility] preop orders for left cardiac cath Status: Hold For - Scheduling,Retrospec tive Authorization Requested for: 02Sep2021 Electrocardiogram 12 Lead; Status:Active - Retrospective Authorization; Requested for:02Sep2021; SocHx: Never a smoker Tobacco Use Screening; Status:Complete; Done: 02Sep2021 Patient Instructions By signing my name below, I, Marla Suresh LPN ,Sandeep, attest that this documentation has been prepared under the direction and in the presence of Dr. Atlu Frazier DO. All medical record entries made [...] a history of prior heart catheterization in [place] remotely that revealed normal coronary arteries. I [...] 2 SPRAYS IN EACH NOSTRIL ONCE DAILY [id number] AT NIGHT Pantoprazole Sodium 40 MG Oral [...] illicit tres (more content not included)... Normal [employer] Tobacco Screening.on 021 Fall risk assessment a) No falls within the last year [facility] [address] [place] Work Phone: Tobacco use status CP b) No [facility] [address] [place] Work Phone: POC Glucose Fingerstickon Glucose [Mass/Vol] 101 mg/dL 65 - 105 mg/dL [employer] Phone: Glucose [Mass/Vol] 121 mg/dL High 65 - 105 mg/dL [employer] Phone: Interpretation and review of laboratory results Abnormal [employer] Phone: Folateon 03-03-2021 Folate 6.6 ng/mL >4.8 [employer] Phone: Iron and TIBCon 03-03-2021 Interpretation and review of laboratory results Abnormal [employer] Phone: Iron [Mass/Vol] 15 ug/dL Low 37 - 145 ug/dL [employer] Phone: Iron Saturation 4 % Low 20 - 55 % [facility] Work Phone: TIBC 390 ug/dL 250 - 450 ug/dL [employer] Phone: UIBC 375 ug/dL High 112 - 347 ug/dL [employer] Phone: Reticulocyteson 03-03-2021 Absolute Retic # 0.049 [facility] Work Phone: Immature Retic Fract NOT REPORTED % [employer] Work Phone: Retic % 1.3 % 0.5 - 2.0 % [employer] Phone: Retic Hemoglobin NOT REPORTED 28.2 - 35.7 pg [employer] Work Phone: Vitamin B12on 03-03-2021 Cobalamin (Vitamin B12) [Mass/Vol] pg/mL High 232 - 1245 pg/mL [employer] Phone: Interpretation and review of laboratory results Abnormal [employer] Phone: Vital Signs Date Time Vital Sign Value Performing Clinician Facility 12-28-2023 12:00-0500 Body height 149.86 cm Tayla Torres Other [facility] Other 12-28-2023 12:00-0500 Body mass index (BMI) [Ratio] 35.95 kg/m2 Tayla Torres Other [facility] Other 12-28-2023 12:00-0500 Body temperature 98.1 [degF] Tayla Torres Other [facility] Other 12-28-2023 12:00-0500 Body weight 80.74 kg Tayla Torres Other [facility] Other 12-28-2023 12:00-0500 Respiratory rate 18 /min Tayla Torres Other [facility] Other 12-28-2023 12:00-0500 SaO2% (BldA) [Mass fraction] 97 % Tayla Torres Other [facility] Other 05-14-2023 12:05-0400 Body height 152.4 cm Concepcionmichelle Moore DO Work Phone: [facility] 05-14-2023 12:05-0400 Body weight 74.84 kg Concepcion Moore DO Work Phone: [facility] 05-08-2023 11:30-0400 Body height 149.86 cm Courtney Perez Other [facility] Other 05-08-2023 11:30-0400 Body mass index (BMI) [Ratio] 33.24 kg/m2 Courtney Perez Other [facility] Other 05-08-2023 11:30-0400 Body temperature 97.7 [degF] Courtney Perez Other [facility] Other 05-08-2023 11:30-0400 Body weight 74.66 kg Courtney Perez Other [facility] Other 05-08-2023 11:30-0400 Diastolic blood pressure 66 mm[Hg] Courtney Perez Other [facility] Other 05-08-2023 11:30-0400 Respiratory rate 18 /min Courtney Perez Other [facility] Other 05-08-2023 11:30-0400 SaO2% (BldA) [Mass fraction] 98 % Courtney Perez Other [facility] Other 05-08-2023 11:30-0400 Systolic blood pressure 154 mm[Hg] Courtney Perez Other [facility] Other 12-08-2022 16:06-0500 Body height 149.9 cm [facility] [employer] 12-08-2022 16:06-0500 Body mass index (BMI) [Ratio] 33.73 kg/m2 [facility] [employer] 12-08-2022 16:06-0500 Body weight 75.75 kg [facility] 3 [employer] 07-25-2022 10:25-0400 Body height 149.86 cm Adilia Buck Other [facility] Other 07-25-2022 10:25-0400 Body mass index (BMI) [Ratio] 35.14 kg/m2 Adilia Buck Other [facility] Other 07-25-2022 10:25-0400 Body temperature 97.8 [degF] Adilia Buck Other [facility] Other 07-25-2022 10:25-0400 Body weight 78.93 kg Adilia Buck Other [facility] Other 07-25-2022 10:25-0400 Respiratory rate 18 /min Adilia Buck Other [facility] Other 07-25-2022 10:25-0400 SaO2% (BldA) [Mass fraction] 98 % Adilia Buck Other [facility] Other 04-06-2022 12:35-0400 Body height 149.86 cm Ava Fernandezault Other [facility] Other 04-06-2022 12:35-0400 Body mass index (BMI) [Ratio] 35.95 kg/m2 Ava Madeleine Other [facility] Other 04-06-2022 12:35-0400 Body temperature 98.8 [degF] Ava Madeleine Other [facility] Other 04-06-2022 12:35-0400 Body weight 80.74 kg Ava Madeleine Other [facility] Other 04-06-2022 12:35-0400 Respiratory rate 18 /min Ava Madeleine Other [facility] Other 04-06-2022 12:35-0400 SaO2% (BldA) [Mass fraction] 97 % Ava Salvador Other [facility] Other 09-09-2021 00:00-0400 90 1 Atul Freddie DO Work Phone: [facility] [place] Work Phone: Comment on above: [facility] 09-02-2021 10:49-0400 Heart rate 62 /min Atul Hyltondon DO Work Phone: [facility] DO Work Phone: 09-02-2021 10:46-0400 Body height 149.86 cm Atul Hyltondon DO Work Phone: [facility] DO Work Phone: 09-02-2021 10:46-0400 Body mass index (BMI) [Ratio] 34.54 kg/m2 Atul Hyltondon DO Work Phone: [facility] DO Work Phone: 09-02-2021 10:46-0400 Body surface area Derived from formula 1.73 m2 Atul Hyltondon DO Work Phone: [facility] DO Work Phone: 09-02-2021 10:46-0400 Body weight 77.57 kg Atul Frazier DO Work Phone: [facility] DO Work Phone: 09-02-2021 10:46-0400 Diastolic blood pressure 70 mm[Hg] Atul Frazier DO Work Phone: [facility] DO Work Phone: 09-02-2021 10:46-0400 Systolic blood pressure 138 mm[Hg] Atul Frazier DO Work Phone: [facility] DO Work Phone: 03-07-2021 09:20-0400 BP Diastolic 53 mm[Hg] [facility] Work Phone: 03-07-2021 09:20-0400 BP Systolic 136 mm[Hg] Bobbisandra Castr [facility] Work Phone: 03-07-2021 09:20-0400 Pulse (Heart Rate) 81 /min [facility] Work Phone: 03-07-2021 09:20-0400 Pulse Oximetry 97 % Bobbisandra Nunez [facility] Work Phone: 03-07-2021 09:20-0400 Respiratory Rate 21 /min Bobbisandra Castr [facility] Work Phone: 03-07-2021 09:10-0400 Body Temperature 97.7 [degF] Bobbisandra Castr [facility] Work Phone: 03-07-2021 06:58-0400 BMI (Body Mass Index) 37.2 kg/m2 Bobbisandra Castr [facility] Work Phone: 03-07-2021 06:58-0400 Body weight 80.74 kg Bobbi Segunr [facility] Work Phone: 03-07-2021 06:58-0400 Height 147.3 cm Bobbisandra Castr [facility] Work Phone: 02-26-2021 15:57-0400 BMI (Body Mass Index) 37.2 kg/m2 [facility] 4 [facility] Work Phone: 02-26-2021 15:57-0400 Body weight 80.[address] [facility] Work Phone: 02-26-2021 15:57-0400 Height 147.3 cm [facility] 4 [facility] Work Phone: Encounters Encounter Date Encounter Type Care Provider Facility Start: 09-30-2024 End: 09-30-2024 ambulatory Gabriela Villatoro Facility:[facility] Start: 09-28-2024 End: 09-28-2024 Telephone encounter Ava Damon OD Work Phone: Ophthalmology Comment on above: Medication Problem Start: 08-29-2024 End: 08-29-2024 ambulatory [facility] Facility[facility] Start: 08-29-2024 End: 08-29-2024 Patient encounter procedure Ava Damon OD Work Phone: Ophthalmology Comment on above: Other chronic allerg ic conjunctivitis of both eyes (Primary Dx); Keratoconjunctivitis sicca of both eyes not specified as Sjogren's; Bilateral cornea scars; Pseudophakia of both eyes Start: 07-26-2024 End: 07-26-2024 ambulatory [facility] Start: 06-12-2024 End: 06-14-2024 Emergency department patient visit [facility] Start: 06-12-2024 End: 06-13-2024 ambulatory SMITH Curtis [facility] Start: 03-22-2024 End: 03-23-2024 ambulatory TRINIDAD LICONA [facility] Start: 03-13-2024 End: 03-13-2024 ambulatory AVA DAMON Facility:[facility] Start: 03-13-2024 End: 03-13-2024 Patient encounter procedure Ava Damon OD Work Phone: Ophthalmology Comment on above: Diabetes mellitus ty pe 2 without retinopathy (HCC) (Primary Dx); Bilateral cornea scars; Keratoconjunctivitis sicca of both eyes not specified as Sjogren's; Other chronic allergic conjunctivitis of both eyes; Pseudophakia of both eyes Start: 02-23-2024 End: 02-23-2024 Subsequent hospital visit by physician Trinidad Licona MD Work Phone: [facility] [employer] Comment on above: Canceled (Patient) Start: 02-21-2024 End: 03-22-2024 ambulatory [facility] Start: 02-02-2024 End: 02-03-2024 ambulatory [facility] Start: 02-02-2024 End: 02-02-2024 Subsequent hospital visit by physician Trinidad Licona MD Work Phone: [facility] [employer] Comment on above: Lumbosacral spondylo sis without myelopathy (Primary Dx) Start: 01-21-2024 End: 02-21-2024 ambulatory [facility] Start: 12-28-2023 End: 12-28-2023 ambulatory Tayla Torres Other [facility] Other Start: 12-28-2023 Office outpatient vi sit 25 minutes Tayla Torres [facility] Start: 12-23-2023 End: 01-21-2024 ambulatory [facility] Start: 11-30-2023 End: 12-03-[address] [facility] Start: 11-29-2023 End: 12-23-2023 ambulatory [facility] Start: 11-08-2023 End: 11-09-2023 ambulatory [facility] Start: 10-26-2023 End: 11-22-2023 ambulatory [facility] Start: 10-21-2023 End: 10-22-2023 ambulatory [facility] Start: 05-14-2023 ambulatory [facility] Facility:[facility] Start: 05-14-2023 Telephone encounter Concepcion Moore DO Work Phone: [facility] Comment on above: Medication Question Start: 05-14-2023 End: 05-14-2023 Patient encounter procedure Concepcionmichelle Moore DO Work Phone: [facility] Comment on above: Spinal stenosis of l umbar region, unspecified whether neurogenic claudication present (Primary Dx); Degenerative arthropathy of spinal facet joint; Myalgia; Postural imbalance Start: 05-11-2023 Telephone encounter Concepcion Puente Teresa DO Work Phone: [facility] Comment on above: Appointment Cancelle d Start: 05-08-2023 End: 05-08-2023 ambulatory Courtney Perez Other [facility] [email or web address] Other Start: 05-08-2023 Office outpatient vi sit 15 minutes Courtney Perez [facility] Start: 04-20-2023 End: 04-21-2023 [...] Start: 12-08-2022 End: 12-13-2022 ambulatory BOBBI NUNEZ [facility] Start: 12-08-2022 End: 12-12-2022 Subsequent hospital visit by physician Myles Tracey Rm 3 [facility] Pre-Admit Testing Start: 12-02-2022 End: 12-02-2022 Subsequent hospital visit by physician Smith Sheikh MD Work Phone: [facility] Laboratory Comment on above: Chronic anemia; Weight [...] 07-25-2022 End: 07-25-2022 ambulatory CORBY STORM . [facility] Other Start: 07-01-2022 End: 07-02-[address] RONY ARCINIEGA . Facility:[facility] Start: 04-15-2022 Telephone encounter Ava Damon OD Work Phone: Ophthalmology Comment on above: Patient Question Start: 04-07-2022 End: 04-07-2022 Subsequent hospital visit by physician Smith Sheikh MD Work Phone: [facility] Laboratory Comment on above: Other iron deficienc y anemia Start: 04-06-2022 End: 04-06-2022 ambulatory Ava Salvador Other [facility] Other Start: 04-06-2022 Office outpatient vi sit [...] Retinal pigment epithelial mottling of macula Start: 09-19-2021 Chart Update Atul Trey veloz DO Work Phone: -[facility] [place] Work Phone: Start: 09-19-2021 [facility], Provider: Atul Frazier, Status: Pen, Time: 10:00 AM Atul Frazier DO Work Phone: [facility] [place] Work Phone: Start: 09-18-2021 AUDIT Atul Trey veloz DO Work Phone: -[facility] [place] Work Phone: Start: 09-11-2021 [facility], Provider: Atul Frazier, Status: Pen, Time: 12:00 PM Atul Frazier DO Work Phone: [facility] [place] Work Phone: Start: 09-09-2021 Chart Update Atul Trey veloz DO Work Phone: -[facility] [place] Work Phone: Start: 09-02-2021 Office consultation new/estab patient 80 min Atul Frazier DO Work Phone: [facility] DO Work Phone: Start: 09-02-2021 Patient encounter procedure Atul Frazier DO Work Phone: [facility] DO Work Phone: Start: 03-07-2021 End: 03-07-2021 Subsequent hospital visit by physician Bobbi Nunez Work Phone: [facility] Start: 03-03-2021 End: 03-03-2021 Subsequent hospital visit [...] MD Work Phone: Start: 04-07-2021 Mammography Ava Isra CARLISLE Work Phone: Start: 03-07-2021 Glucose blood reagent strip Bobbi Nunez Work Phone: Start: 03-07-2021 Glucose blood reagent strip Bobbi Nunez Work Phone: Start: 03-07-2021 Colonoscopy Smith nix MD Work Phone: Start: 03-03-2021 Assay of folic acid serum Bobbi Nunez Work Phone: Start: 03-03-2021 Blood count reticulo cyte automated Bobbi Nunez Work Phone: Start: 03-03-2021 Cyanocobalamin vitamin b-12 Bobbi Kellyludarren Work Phone: Start: 03-03-2021 Iron binding capacity [...] for malignant neoplasm of colon [facility] Start: 03-14-2025 End: 03-14-2025 Patient encounter procedure 03/14/2025 10:30 AM EDT Office Visit [facility] [address] [place] [address] Ava Damon, OD [address] [place] [address] 1 year diabetic eye exam Ophthalmology Comment on above: 1 year diabetic eye exam Start: 03-13-2025 Glaucoma screening Dilated Retinal Exam [facility] Start: 12-13-2024 Depression Screen Depression Screen [facility] Start: 07-23-2024 Covid-19 Vaccine ( season) Covid-19 Vaccine ( season) [facility] Start: 07-23-2024 Influenza vaccination [facility] Start: 07-06-2024 Hemoglobin A1c measurement HbA1C [facility] Start: 06-22-2024 Influenza vaccination Flu vaccine (Season Ended) [facility] Start: 04-10-2024 End: 04-10-2024 Patient encounter procedure 04/10/2024 2:30 PM EDT Office Visit [facility] [address] [place] [address] Smith Sheikh MD [address] [place] [id number] 3 month check [facility] Comment on above: 3 month check Start: 04-07-2024 Shingles vaccine (2 of 2) Shingles vaccine (2 of 2) [facility] Comment on above: Postponed from 09/17/2021 (Unavailable) Start: 04-03-2024 End: 04-03-2024 Patient encounter procedure 04/03/2024 11:15 AM EDT Office Visit [facility] [address] [place] [address] Smith Sheikh MD [address] [place] [id number] 3 month f/u Smith Ramirez Comment on above: 3 month f/u Start: 03-29-2024 Pneumococcal 65+ years Vaccine (2 - PPSV23 or PCV20) Pneumococcal 65+ years Vaccine (2 - PPSV23 or PCV20) [facility] Comment on above: Postponed from 09/17/2021 (Unavailable) Start: 03-29-2024 Pneumococcal 65+ years Vaccine (2 of 2 - PPSV23 or PCV20) Pneumococcal 65+ years Vaccine (2 of 2 - PPSV23 or PCV20) [facility] Comment on above: Postponed from 09/17/2021 (Unavailable) Start: 03-10-2024 Hepatitis C antibody, confirmatory test DILATED RETINAL EXAM [facility] Start: 12-02-2023 GFR test (Diabetes, CKD 3-4, OR last GFR 15-59) GFR test (Diabetes, CKD 3-4, OR last GFR 15-59) [facility] Start: 11-22-2023 Advance Directive Discussion Advance Directive Discussion [facility] Start: 11-22-2023 Behavioral Health Screening Behavioral Health Screening [facility] Start: 10-21-2023 Depression Screen Depression Screen [facility] Start: 10-21-2023 Hemoglobin A1c measurement A1C test (Diabetic or Prediabetic) [facility] Start: 08-29-2023 Lipid panel Lipids [facility] Start: 07-23-2023 Covid-19 Vaccine ( season) Covid-19 Vaccine ( season) [facility] Start: 07-23-2023 COVID-19 Vaccine ( season) COVID-19 Vaccine ( season) [facility] Start: 06-22-2023 Influenza vaccination Flu vaccine (#1) [facility] Start: 04-07-2023 Screening for malignant neoplasm of breast Breast cancer screen [facility] Start: 02-19-2023 Hepatitis C antibody, confirmatory test DILATED RETINAL EXAM [facility] Start: 01-20-2023 End: 01-20-2023 Patient encounter procedure 01/20/2023 Office Visit Family Medicine Smith Sheikh MD [address] [place] [address] Smith Sheikh MD [facility] Start: 2023 RSV Vaccine (1 - 1-dose 75+ series) RSV Vaccine (1 - 1-dose 75+ series) [facility] Start: 12-22-2022 End: 12-22-2022 Admission to same day surgery center 12/22/2022 Surgery Endoscopy Bobbi Nunez MD [address] [place] [address] EGD BIOPSY [facility] Comment on above: EGD BIOPSY Start: 12-22-2022 End: 12-22-2022 Egd transoral biopsy single/multiple EGD BIOPSY Gastroesophageal reflux disease without esophagitis 12/22/2022 8:00 AM EST [facility] Start: 12-22-2022 Subsequent hospital visit by physician 12/22/2022 Hospital Encounter Endoscopy Bobbi Nunez MD [address] [place] [address] [facility] Start: 12-08-2022 End: 12-08-2022 Patient encounter procedure 12/08/2022 Appointment Pre-Admission Testing [facility] Pre-Admit Testing Start: 11-22-2022 ADVANCE DIRECTIVE DISCUSSION ADVANCE DIRECTIVE DISCUSSION [facility] Start: 11-22-2022 DEPRESSION ASSESSMENT DEPRESSION ASSESSMENT [facility] Start: 11-03-2022 Depression Screen Depression Screen [facility] Start: 08-30-2022 Hemoglobin A1c measurement A1C test (Diabetic or Prediabetic) [facility] Start: 07-23-2022 Influenza vaccination [facility] Start: 07-23-2022 Pneumococcal 65+ years Vaccine (2 - PPSV23 if available, else PCV20) Pneumococcal 65+ years Vaccine (2 - PPSV23 if available, else PCV20) [facility] Start: 07-23-2022 Pneumococcal 65+ years Vaccine (2 - PPSV23 or PCV20) Pneumococcal 65+ years Vaccine (2 - PPSV23 or PCV20) [facility] Start: 05-13-2022 End: 05-13-2022 Patient encounter procedure 05/13/2022 Office Visit Gastroenterology Bobib Nunez MD [address] [address] [facility] Gastroenterology Start: 04-22-2022 End: 04-22-2022 Patient encounter procedure 04/22/2022 Office Visit Family Medicine Smith Sheikh MD [address] [place] [address] Smith Sheikh MD [facility] Start: 04-07-2022 Mammography MAMMOGRAM [facility] Start: 02-14-2022 Screening for malignant neoplasm of colon FIT/FOBT: Average risk [facility] [employer] Start: 02-05-2022 Hepatitis C screening [facility]atitis [facility] screen [facility] Phone: Comment on above: Postponed from 1948 (Patient Refus ed) Start: 01-24-2022 COVID-19 VACCINE (4 - Booster for Moderna series) COVID-19 VACCINE (4 - Booster for Moderna series) [facility] Start: 01-22-2022 Creatinine measurement Creatinine monitoring [facility] Phone: Start: 01-22-2022 HbA1c (Bld) [Mass fraction] A1C test (Diabetic or Prediabetic) [employer] Phone: Start: 01-22-2022 Lipid panel [facility] Start: 01-22-2022 Potassium monitoring Potassium monitoring [employer] Phone: Start: 01-22-2022 TSH Qn TSH testing [facility] Phone: Start: 11-22-2021 ADVANCE DIRECTIVE DISCUSSION ADVANCE DIRECTIVE DISCUSSION [facility] Start: 11-21-2021 COVID-19 VACCINE (4 - Booster for Moderna series) COVID-19 VACCINE (4 - Booster for Moderna series) [facility] Start: 11-21-2021 COVID-19 VACCINE (5 - Booster for Moderna series) COVID-19 VACCINE (5 - Booster for Moderna series) [facility] Start: 11-21-2021 COVID-19 Vaccine (5 - Booster) COVID-19 Vaccine (5 - Booster) [facility] Start: 10-30-2021 [facility], Provider: Atul Frazier, Status: Pen, Time: 10:10 AM [facility], Provider: Atul Frazier, Status: Pen, Time: 10:10 AM [facility] Work Phone: Start: 09-17-2021 Pneumococcal Vaccine: 65+ (2 of 2 - PPSV23 or PCV20) Pneumococcal Vaccine: 65+ (2 of 2 - PPSV23 or PCV20) [facility] Start: 09-17-2021 Shingles vaccine (2 of 2) Shingles vaccine (2 of 2) [facility] Start: 09-17-2021 Shingrix Vaccine (2 of 2) Shingrix Vaccine (2 of 2) [facility] Start: 09-11-2021 [facility], Provider: Atul Frazier, Status: Pen, Time: 12:00 PM [facility], Provider: Atul Frazier, Status: Pen, Time: 12:00 PM [facility] Work Phone: Start: 08-28-2021 HbA1c (Bld) [Mass fraction] A1C test (Diabetic or Prediabetic) [facility] Phone: Start: 08-23-2021 DTaP/Tdap/Td vaccine (1 - Tdap) DTaP/Tdap/Td vaccine (1 - Tdap) [facility] [email or web address] Phone: Comment on above: Postponed from 1967 (Not Indicated ) Start: 08-23-2021 Pneumococcal 65+ years Vaccine (1 of 1 - PPSV23) Pneumococcal 65+ years Vaccine (1 of 1 - PPSV23) [facility] Phone: Comment on above: Postponed from 2013 (Not Indicated ) Start: 08-23-2021 Shingles Vaccine (1 of 2) Shingles Vaccine (1 of 2) [employer] Phone: Comment on above: Postponed from 1998 (Not Indicated ) Start: 07-23-2021 Influenza vaccination INFLUENZA (#1) [facility] Start: 03-31-2021 End: 03-31-2021 Office Visit 03/31/2021 Office Visit Gastroenterology Bobbi Nunez MD [address] [address] [phone] [facility] Start: 03-17-2021 End: 03-17-2021 Office Visit 03/17/2021 Office Visit Family Medicine Smith Sheikh MD [address] [place] [address] [phone] Smith Sheikh [facility] Start: 03-07-2021 End: 03-07-2021 Hospital Encounter [facility] Comment on above: EGD Start: 03-03-2021 End: 02-28-2022 COVID-19 [employer] Phone: Comment on above: Expected: 03/03/2021, Expires: 2 Once for 1 Occurrenc es starting 03/03/2021 until 03/03/2021 Start: 03-03-2021 Hospital Encounter 03/03/2021 Hospital Encounter Lab Pre-op testing (Primary Dx) [facility] Covid Screening Comment on above: Pre-op testing (Primary Dx) Start: 02-26-2021 Hemoglobin A1c measurement HbA1C [facility] Start: 02-26-2021 Hemoglobin A1c/Hemoglobin.total in Blood HBA1C [facility] Start: 12-25-2018 Screening for malignant neoplasm of breast Breast cancer screen [employer] Phone: Start: 08-21-2017 Screening for malignant neoplasm of colon Colon Cancer Screen FIT/FOBT [employer] Phone: Start: 07-31-2017 Creatinine measurement Creatinine monitoring [employer] Phone: Start: 07-31-2017 Lipid panel Lipid screen [employer] Phone: Start: 07-31-2017 Potassium monitoring Potassium monitoring [employer] Phone: Start: 07-31-2017 TSH Qn TSH testing [employer] Phone: Start: 11-19-2015 Diabetic foot examination Diabetic foot exam [facility] [employer] Start: 11-19-2015 Diabetic retinal exam Diabetic retinal exam [facility] [employer] Start: 11-19-2015 Glaucoma screening Diabetic retinal exam [facility] [employer] [facility] [employer] Start: 2013 BONE DENSITY BONE DENSITY [facility] Start: 2013 PNEUMOCOCCAL: 65+ (1 - PCV) PNEUMOCOCCAL: 65+ (1 - PCV) [facility] Start: 2013 PNEUMOVAX AGE 65 AND OVER WITH 5YR LOOKBACK (#1) PNEUMOVAX AGE 65 AND OVER WITH 5YR LOOKBACK (#1) [facility] Start: 2013 Screening for osteoporosis Bone Density Screening [facility] Start: 2008 Respiratory Syncytial Virus (RSV) or age 60 yrs+ (1 - 1-dose 60+ series) Respiratory Syncytial Virus (RSV) or age 60 yrs+ (1 - 1-dose 60+ series) [facility] [employer] Start: 2008 RSV Vaccine (1 - 1-dose 60+ series) RSV Vaccine (1 - 1-dose 60+ series) [facility] Start: 1998 SHINGRIX VACCINE (1 of 2) SHINGRIX VACCINE (1 of 2) [facility] Start: 1993 COLOGUARD (FIT-DNA) COLOGUARD (FIT-DNA) [facility] Start: 1993 Colonoscopy COLONOSCOPY [facility] Start: 1993 COLORECTAL CANCER SCREENING COLORECTAL CANCER SCREENING [facility] Start: [address] COLONOGRAPHY [facility] Start: 1993 FECAL OCCULT BLOOD FECAL OCCULT BLOOD [facility] Start: 1993 Screening for malignant neoplasm of colon [facility] Start: 1993 SIGMOIDOSCOPY SIGMOIDOSCOPY [facility] Start: 1967 DTaP/Tdap/Td vaccine (1 - Tdap) DTaP/Tdap/Td vaccine (1 - Tdap) [facility] Start: 1967 Urine microalbumin profile [facility] Start: 1966 ANNUAL PCP TEAM CHRONIC DISEASE VISIT ANNUAL PCP TEAM CHRONIC DISEASE VISIT [facility] Start: 1966 Anxiety Screening Anxiety Screening [facility] Start: 1966 Depression Screening Depression Screening [facility] Start: 1966 Diabetic microalbuminuria test Diabetic [facility]albuminuria test [facility] Phone: Start: 1966 Hepatitis B surface antibody level LDL CHOLESTEROL [facility] Start: 1966 HEPATITIS C SCREENING HEPATITIS C SCREENING [facility] Start: 1966 Hepatitis C screening [facility] Start: 1966 Urine screening for protein [facility] Start: 1960 Adult depression screening assessment DEPRESSION SCREENING [facility] Start: 1958 3 comp foot exam completed DIABETIC FOOT EXAM [facility] Start: 1958 Diabetic foot examination Diabetic Foot Exam [facility] Start: 1958 Hepatitis B screening URINE ALBUMIN:CREATININE RATIO [facility] Start: 1954 PNEUMOCOCCAL: 65+ (1 - PCV) PNEUMOCOCCAL: 65+ (1 - PCV) [facility] Start: 1948 Annual Wellness Visit (AWV) Annual Wellness Visit (AWV) [employer] COVID-19 COVID-19 Lab Rou cody 03/03/2021 1:21 PM EDT [facility] O[facility] [[facility] Data Set] Initiate Oxygen Therapy Protocol Respiratory Care Routine Daily until discontinued starting 03/07/2021 [employer] Phone: Comment on above: Daily until discontinued starting 2020 Surgical Pathology Surgical Path ology Lab Routine Release Upon Ordering for 1 Occurrences starting 03/07/2021 [employer] Phone: Comment on above: Release Upon Ordering for 1 Occurrences starting 03/07/2021 End: 03-03-2021 Tissue Transglutaminase, IgA Tissue Transglutaminase, IgA Lab Routine Anemia, unspecified type 1 Occurrences starting 03/03/2021 until 03/03/2021 [employer] Phone: Comment on above: 1 Occurrences starting 03/03/2021 until 03/03/2021 Tissue Transglutamin ase, IgA Tissue Transglutaminase, IgA Lab Routine Anemia, unspecified type 03/03/2021 10:40 AM EDT [facility] Work Phone: End: 12-02-2022 Tissue Transglutaminase, IgA [facility] Work Phone: Comment on above: 1 Occurrences starting 12/02/2022 until 12/02/2022 [facility] Immunizations Immunization Date Immunization Notes Care Provider [facility] 08-28-2022 influenza, high dose seasonal, preservative-free Smith Sheikh MD Work Phone: [facility] 08-28-2022 influenza virus vaccine, unspecified formulation Ava Damon OD Work Phone: [facility] 09-26-2021 COVID-19, PFIZER PUR PLE top, DILUTE for use, (age 12 y+), 30mcg/0.3mL Trinidad Licona MD Work Phone: [facility] 07-23-2021 pneumococcal conjuga te vaccine, 13 valent Atul Frazier DO Work Phone: [facility] 07-23-2021 zoster vaccine recombinant Atul Frazier DO [facility] Work Phone: 02-23-2021 COVID-19, Moderna, Primary or Immunocompromised, PF, 100mcg/0.5mL Smith Sheikh MD Work Phone: [facility] Work Phone: 02-20-2021 Moderna COVID-19 Vaccine 100 MCG/0.5ML Intramuscular Suspension Atul Frazier DO Work [facility]: [facility] Work Phone: 01-31-2021 COVID-19, Moderna, P F, 100mcg/0.5mL Stcz 4 [facility] Work Phone: 01-23-2021 Moderna COVID-19 Vaccine 100 MCG/0.5ML Intramuscular Suspension Atul Frazier DO Work Phone: [facility] DO Work Phone: 10-26-2020 Influenza, High-dose , Quadv, 65 yrs +, IM (Fluzone) Stcz 4 [employer] Work Phone: Payers Date Payer Category Payer Self-pay 2017 Medicare HUMANA MEDICARE HUMANA MEDICARE PPO [id number] 2017-Present [phone] [place] [address] PPO [id number] 2017 Medicare HUMANA MEDICARE HUMANA MEDICARE PPO [id number] 2017-Present [phone] [place] [address] PPO [id number] 1959 Private Health Insurance [id number] .[id number] 1948 Unknown [id number] 2.16.840.1.969200.3.579.2 .593 1948 Unknown [id number] 2.16.840.1.781108.3.579.2 .593 1948 Unknown [id number] 2.16.840.1.767950.3.579.2 .593 1948 Unknown [id number] 2.16.840.1.981056.3.579.2 .593 1948 Unknown [id number] 2.16.840.1.356156.3.579.2 .593 1948 Unknown [id number] 2.16.840.1.291177.3.579.2 .593 1948 Unknown [id number] 2.16.840.1.757456.3.579.2 .593 1948 Unknown [id number] 2.16.840.1.671119.3.579.2 .593 1948 Unknown [id number] 2.16.840.1.402967.3.579.2 .593 1948 Unknown [id number] 2.16.840.1.598769.3.579.2 .593 1948 Unknown [id number] 2.16.840.1.494809.3.579.2 .593 1948 Unknown [id number] 2.16.840.1.735225.3.579.2 .176 1948 Unknown [id number] 2.16.840.1.687899.3.579.2 .176 1948 Unknown [id number] 2.16.840.1.194269.3.579.2 .176 1948 Unknown [id number] 2.16.840.1.968212.3.579.2 .175 1948 Unknown [id number] 2.16.840.1.020400.3.579.2 .175 1948 Unknown [id number] 2.16.840.1.956912.3.579.2 .175 1948 Unknown [id number] 2.16.840.1.812720.3.579.2 .175 1948 Unknown [id number] 2.16.840.1.299474.3.579.2 .175 1948 Unknown [id number] 2.16.840.1.627065.3.579.2 .175 1948 Unknown [id number] 2.16.840.1.669701.3.579.2 .1286 1948 Unknown [id number] 2.16.840.1.049394.3.579.2 .1285 1948 Unknown [id number] 2.16.840.1.519356.3.579.2 .128 1948 Unknown [id number] 2.16.840.1.022242.3.579.2 .1285 1948 Unknown [id number] 2.16.840.1.677994.3.579.2 .128 1948 Unknown [id number] 2.16.840.1.539784.3.579.2 .1285 1948 Unknown [id number] 2.16.840.1.148121.3.579.2 .1286 1948 Unknown [id number] 2.16.840.1.491267.3.579.2 .1244 Unknown HU[employer]NA GOLD CHOICE Unknown [id number] 2.16.840.1.437146.3.579.2 .531 Social History Date Type Detail Facility Start: 02-26-2021 End: 03-10-2023 Tobacco smoking status ARIS Never smoker [facility] Start: 02-26-2021 End: 03-10-2023 Tobacco use and exposure Never used [employer] Phone: Start: 02-26-2021 End: 02-02-2024 Alcohol intake Current non-drinker of alcohol (finding) [employer] Phone: Start: 02-05-2021 History SDOH Social Connections Phone 5 [employer] Phone: Start: 02-05-2021 End: 02-19-2022 History SDOH Social Connections Get Together 1 [employer] Phone: Start: 02-05-2021 History SDOH Social Connections Catholic 3 [employer] Phone: Start: 02-05-2021 History SDOH Physical Activity DPW 0 [employer] Phone: Start: 02-05-2021 History SDOH Education 12 [employer] Work Phone: Start: 02-05-2021 History SDOH IPV Fear 2 [employer] Work Phone: Start: 05-19-2013 Alcohol Comment never drank [employer] Work Phone: Start: 1950 Sex Assigned At Not on file [employer] Work Phone: Start: 01-23-2022 End: 12-08-2022 Exposure to SARS-CoV-2 (event) Not sure [employer] Work Phone: Start: 11-03-2021 End: 03-26-2023 No alcohol use No alcohol use -[facility] DO Work Phone: Start: 02-19-2022 End: 08-29-2024 Alcohol intake Lifetime non-drinker (finding) [facility] Start: 02-05-2021 End: 03-26-2023 Sex Assigned At [facility] [employer] Other Start: 08-28-2022 History SDOH Financial 4 [employer] Work Phone: Do you belong to any clubs or organizations such as protestant groups, unions, fraternal or athletic groups, or school groups? Yes [employer] Are you now , , , , never or living with a partner? [employer] How hard is it for y ou to pay for the very basics like food, housing, medical care, and heating Not hard at all [facility] Do you feel stress - tense, restless, nervous, or anxious, or unable to sleep at night because your mind is troubled all the time - these days [OSQ] Not at all [facility] (I/We) worried wheth er (my/our) food would run out before (I/we) got money to buy more. Never true [facility] At any time in the p ast 12 months, were you homeless or living in halfway [including now]? Bina RAYO [employer] [facility] Procedure Code Equipment Code Equipment Origin al Text Equipment Identifier Dates 100 each by In V itro route 2 times daily As needed. [id number] Start: 02-24-2018 1 kit by Does no t apply route 2 times daily [id number] Start: 02-24-2018 Patient test blo od sugar BID [id number] Start: 02-24-2018 End: 12-08-2022 Lens Iol +21.5 D iop Acrsf Iq - [id number] Start: 01-10-2014 100 each by In V itro route 2 times daily As needed. [id number] Start: 07-28-2022 Clinical Notes 11-03-2010 to 09-28-2024 Telephone Encounter - Astrid Latham - 09/28/2024 8:54 AM ESTTelephone Encounter - sAtrid Latham - 09/28/2024 8:54 AM Ava Hastings OD - 08/29/2024 3:24 PM EDTPatient Instructions Note Date & Type Note Facility 09-28-2024 Telephone encounter Note Pt is requesting a new eye drop prescription or another alternative due to the rx that was given being to expensive. Pt states they are 25 dollars and too much. Would like something else. Would like something sent to [facility] on [address] [facility] 09-28-2024 Miscellaneous Notes Pt is requesting a new eye drop prescription or another alternative due to the rx that was given being to expensive. Pt states they are 25 dollars and too much. Would like something else. Would like something sent to [facility] in [place] on [address] documented in this encounter [facility] 08-29-2024 Note HNO ID: [id number] Author: AVA DAMON OD Service: ? Author Type: SMALL ORDER CUTTER Type: Progress Notes Filed: 08/29/2024 15:26 Note [...] Damon, OD August 29, 2024 3:24 PM [facility] 08-29-2024 History of Present illness Narrative ASSESSMENT/PLAN: [...] 2024 3:24 PM documented in this encounter [facility] 08-29-2024 Instructions Ava Damon OD - 08/29/2024 11:44 AM EDT Short term: start maxitrol drops (steroid) 3 times daily in both eyes for 5 days, then stop. 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 Go back to Refresh for artificial tears documented in this encounter [facility] 06-12-2024 Note XR CHEST 2 VWS Procedure: Chest x-ray performed Number of views:2 History:Chest pain Covid positive Comparison:01/20/2020 Findings: The heart and lungs show no acute findings, and the mediastinum and brennen are grossly negative . Impression: 1. No acute change. Finalized by Marvin Ackerman MD on 06/12/2024 9:29 PM [facility] 03-13-2024 Instructions Ava Damon OD - 03/13/2024 11:10 AM EDT Dry eye is likely causing the blurred vision in the morning, and blurriness that gets worse with prolonged reading. Start using artificial tears 2-3 times daily, when needed. Here are some good syxc-aud-rhtluap brands: Systane, Refresh, TheraTears Restart the pataday allergy drops in both eyes every morning during allergy seasons documented in this encounter [facility] 03-13-2024 Note HNO ID: [id number] Author: AVA DAMON OD Service: ? Author Type: SMALL ORDER CUTTER Type: Progress Notes Filed: 03/13/2024 11:12 Note [...] of its relevant components. Ava Damon, OD March 13, 2024 11:08 AM [facility] 03-13-2024 History of Present illness Narrative ASSESSMENT/PLAN: [...] 2024 11:08 AM documented in this encounter [facility] 02-23-2024 History of Present illness Narrative Pt called to cancel appt she is ill will call office to reschedule. documented in this encounter [facility] 02-23-2024 Hospital Discharge instructions Chichi Castrejon [...] Call [facility] at [phone] if you experience: Fever, chills or temperature over 100 Vomiting, Headache, persistent stiff neck, nausea, blurred vision Difficulty in urinating or unable to urinate with 8 hours Increase in weakness, numbness or loss of function Increased redness, swelling or drainage at the injection site documented in this encounter [facility] 02-02-2024 Hospital Discharge instructions Chichi Castrejon RN [...] Call [facility] at [phone] if you experience: Fever, chills or temperature over 100 Vomiting, Headache, persistent stiff neck, nausea, blurred vision Difficulty in urinating or unable to urinate with 8 hours Increase in weakness, numbness or loss of function Increased redness, swelling or drainage at the injection site documented in this encounter [facility] 12-28-2023 Evaluation note Encounter Date Diagnosis [...] understanding and is agreeable to treatment plan Personal Medicine Other 06-23-2023 NoteHNO ID: [id number] Author: Milagros Cox RT(R) Service: Radiology Author Type: Bearing Maker Type: Progress Notes Filed: 05/14/2023 1:06 PM [...] IV DATA: Not applicable SIGNED BY: Milagros Cox, RT(R) May 14, 2023 1:06 [id number] Miscellaneous Notes* Telephone Encounter - Dominique Meneses LPN - 05/14/2023 1:24 PM EDT Pt came back to the front office director requesting tramadol Spoke to pt and advised Dr Moore does not prescribe narcotics for chronic pain and will need to secure the tramadol from the prior prescriber-also noted in office visit note Pt stated the prescriber did not want to see her anymore Advised pt to see if another provider/PCP would possibly consider prescribing the tramadol Pt verbalized understanding documented in [facility] History of Present illness Narrative* Concepcion Moore [...] supervised home exercise program (HEP): No 4. Museum Preparator: No 5. What are your limitations: Standing [...] not taking: No sig reported) MV with Zcd-Oovnbiod-Uvphmk 0.4 mg-300 mcg- 250 mcg tab Take [...] plan. CC - Rt lower back pain /. Uses a cane. Standing and walking makes [...] / films reviewed with patient. Lumbar Xrays:06/08/2012 Ju: Reports to be scanned into EMR or [...] surgical care. No neurological deficits noted during [facility] exam. PT - Core stabilization exercises, stretching/ [...] which included preparing to see the patient, xsxb-sb-bfti patient care, completing clinical documentation, obtaining and/or [...] Concepcion Moore DO, MBA documented in this encounterC[facility]06[facility]23 Miscellaneous Notes* Telephone Encounter - Frank Pillai - 05/11/2023 9:26 AM EDT 05/11/2023 LVM documented in this encounterCinc[facility]06-17-2023 Evaluation note* Encounter Date Diagnosis Assessment Notes [...] fever. Patient verbalized understanding of treatment plan. Personal Medicine Other 05-30-2023 NoteCONSULTATION CONSULTATION DATE: 04/20/2023 TO: [facility] HISTORY: Patient presents today complaining [...] that she consider follow up with the [facility], as the patient is requesting the same. In the interim, I have asked her to discontinue her baclofen secondary to ineffectiveness. To continue with the tramadol until she follows up with her new physician and primary caregivers for pain management at the [facility], and we will facilitate that referral. As part of providing excellent, safe, comprehensive care, the following was completed at our patient's visit: 1. A medication reconciliation and review to ensure accurate knowledge of current/active medications, including asking our patients to inform us about any bgtj-srz-qtiaxln medications or herbal remedies/nutritional supplements/alternative remedies. 2. [...] treatment options with their primary care provider.[facility] [id number] History of Present illness Narrative* Blayne Haro, MAYLIN - 03/29/2023 1:47 PM EDT Sed Rate and CRP normal Blayne Haro, OD March 29, 2023 1:47 PM * Blayne Haro, MAYLIN - 03/26/2023 3:00 PM EDT ASSESSMENT/PLAN: 1. [...] 26, 2023 3:00 PM documented in this encounterC[facility]03-[facility]-2023 NoteCONSULTATION CONSULTATION DATE: 02/11/2023 TO: [facility] CHIEF COMPLAINT: Includes right sided [...] of the iliohypogastric nerve under fluoroscopic guidance.[facility] 12-23-2022 Miscellaneous Notes* Telephone Encounter - Yaquelin Wang - 12/23/2022 3:30 PM EST Called patient and told her about the recommendation to see Dr. Childers in [place]. * Telephone Encounter - Yaquelin Wang - [...] would like it to go to the [facility] on [address] in [place]. Please advise. documented in this encounterC[facility]01-[facility] History of Present illness Narrative* Shanna Woody [...] lotion, powder, jewelry, piercings, perfume, makeup, nail scottish, hair accessories, or hair spray on the day of surgery. Wear loose comfortable clothing. Leave your valuables at home. Bring a storage case for any glasses/contacts. An adult who is responsible for you MUST drive you home and should be with you for the first 24 hours after surgery. The Day of Surgery: Arrive at [facility] at the time directed by your surgeon and check in at the desk. If you have a living will or healthcare power of collections attorney, please bring a copy. You will be taken to the pre-op holding area where you will be prepared for surgery. A physical assessment will be performed by a nurse practitioner or dimension warehouse supervisor. Your IV will be started and you [...] and understanding verbalized. documented in [facility] encounter[facility] Work Phone: [phone] NoteCONSULTATION CONSULTATION DATE: 11/10/2022 CHIEF COMPLAINT: Low [...] mg b.i.d. will be refilled for her.[facility] [id number] Evaluation note* Encounter Date Diagnosis Assessment Notes [...] the ER for worsening symptoms or concerns. Personal Medicine Other 08-10-2022 NoteCONSULTATION CONSULTATION DATE: 07/01/2022 This is a pleasant 72-year-old female returning to the clinic for a 3-month follow-up for her chronic lower back pain and right hip pain. Today she was complaining of right buttocks pain and hip pain that she feels is affecting her ambulation. She rates it 7 out of 10 and describes it as sharp. 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 Please advise. documented in this encounterCinc[facility]05-16-2022 Evaluation note* Encounter Date Diagnosis Assessment Notes [...] Patient care instructions given in writting by [facility] Care At Home document. Personal Medicine Other 03-31-2022 History of Present illness Narrative* Ava Damon, OD - 02/19/2022 11:51 AM EDT ASSESSMENT/PLAN: [...] 19, 2022 11:51 AM documented in this encounterCinc[facility] Center09-12-2021 Chief complaint Narrative - Reported* MARAH SILVA [...] a history of prior heart catheterization in [place] remotely that revealed normal coronary arteries. I [...] and also offered conservative based medical therapies. -[facility] [address] DO Work Phone: [phone] History of Past illness Narrative* Problem Noted Date Resolved Date Senile cataract, unspecified 11/03/2010 documented as of this encounter (statuses as of 02/19/2022) [facility]12-13-2010 History of Past illness Narrative* Problem Noted Date Resolved Date Senile cataract, unspecified 11/03/2010 documented as of this encounter (statuses as of 04/15/2022) [facility]12-13-2010 History of Past illness Narrative* Problem Noted Date Resolved Date Senile cataract, unspecified 11/03/2010 documented as of this encounter (statuses as of 12/23/2022) [facility]12-13-2010 History of Past illness Narrative* Problem Noted Date Resolved Date Senile cataract, unspecified 11/03/2010 documented as of this encounter (statuses as of 03/29/2023) [facility]12-13-2010 History of Past illness Narrative* Problem Noted Date Resolved Date Senile cataract, unspecified 11/03/2010 documented as of this encounter (statuses as of 05/11/2023) [address]13-2010 History of Past illness Narrative* Problem Noted Date Resolved Date Senile cataract, unspecified 11/03/2010 documented as of this encounter (statuses as of 05/14/2023) [place] [address]-13-2010 History of Past illness Narrative* Problem Noted Date Resolved Date Senile cataract, unspecified 11/03/2010 documented as of this encounter (statuses as of 05/14/2023) [facility] complaint Narrative - ReportedCELIA PENG is being seen for a consultation for abnormal test(s) results.-[facility] 250 DO Work Phone: Evaluation note* Diagnosis Diabetes mellitus [...] Other retinal disorders documented in this encounter [facility] note* Diagnosis Other iron deficiency anemia documented in this encounter [employer] Phone: evaluation note* Diagnosis Chronic anemia Anemia, unspecified Weight loss Loss of weight Iron deficiency anemia secondary to inadequate dietary iron intake Gastroesophageal reflux disease without esophagitis Esophageal reflux documented in this encounter [employer] Phone: evaluation note* Diagnosis Left facial pain- Primary Headache Keratoconjunctivitis sicca of both eyes not specified as Sjogren's Keratoconjunctivitis sicca, not specified as Sjogren's Bilateral cornea scars Corneal opacity, unspecified Diabetes mellitus type 2 without retinopathy (HCC) Type II or unspecified type diabetes mellitus without mention of complication, not stated as uncontrolled [facility]* Diagnosis Spinal stenosis of lumbar region, unspecified whether neurogenic claudication present- Primary Degenerative arthropathy of spinal facet joint Spondylosis of unspecified site without mention of myelopathy Myalgia Mylagia and myositis, unspecified Postural imbalance Disorders of soft tissue, unspecified documented [facility] this encounter [facility]* Diagnosis Lumbosacral spondylosis without myelopathy- Primary documented in this encounter [employer] note* Diagnosis Diabetes mellitus type 2 without [...] by other means [facility]* Diagnosis Other chronic allergic conjunctivitis of both eyes- Primary Keratoconjunctivitis sicca of both eyes not specified as Sjogren's Keratoconjunctivitis sicca, not specified as Sjogren's Bilateral cornea scars Corneal opacity, unspecified Pseudophakia of both eyes Lens replaced by other means documented in this encounter [facility] general Narrative - Reported* Type Description Date Medical History diabetes mellitus Medical History Hypothyroidism Medical History osteoporosis Medical History Chronic obstructive pulmonary di sease Medical History Hearing loss Medical History asthma Surgical History cholecystectomy Surgical History partial hysterectomy Surgical History tonsillectomy Surgical History colonoscopy Surgical History ear surgery Surgical History back ablasion Hospitalization History See Above Personal Medicine Other History general Narrative - Reported* Type Description Date Medical History diabetes mellitus Medical History Hypothyroidism Medical History osteoporosis Medical History Chronic obstructive pulmonary di sease Medical History Hearing loss Medical History asthma Surgical History cholecystectomy Surgical History partial hysterectomy Surgical History tonsillectomy Surgical History colonoscopy Surgical History ear surgery Surgical History back ablasion Hospitalization History See Above Hospitalization History blood pressure elevated Personal Medicine Other Reason for referral (narrative)* - Pending Review Specialty Diagnoses / Procedures Referred By Bernardino mcmahan Referred To Contact Physical Therapy Diagnoses Spinal stenosis of lumbar region, unspecified whether neurogenic claudication present Degenerative arthropathy of spinal facet joint Myalgia Postural imbalance Procedures CONSULT [place] [address] [place] [address] Referral ID Status Reason Start Date Expiration Date V isits Requested Visits Authorized [id number] Pending Review 05/14/2023 08/12/2023 1 1 * Diagnostic Procedure Only (Routine) - Closed Specialty Diagnoses / Procedures Referred By Bernardino mcmahan Referred To Contact XR IMAGING Diagnoses Spinal stenosis of lumbar region, unspecified whether neurogenic claudication present Degenerative arthropathy of spinal facet joint Myalgia Postural imbalance Procedures XR PELVIS 1V AP RADIOLOGIC EXAMINATION PELVIS 1/[place] [address] [place] [address] Xr Imaging Referral ID Status Reason Start Date Expiration Date V isits Requested Visits Authorized [id number] Closed Auto-Generate d Referral 05/14/2023 06/12/2024 1 1 * Diagnostic Procedure Only (Routine) - Closed Specialty Diagnoses / Procedures Referred By Johnathanac t Referred To Contact XR IMAGING Diagnoses Spinal stenosis of lumbar region, unspecified whether neurogenic claudication present Degenerative arthropathy of spinal facet joint Myalgia Postural imbalance Procedures XR LUMBAR GENERAL 3V AP/LAT/L5-S1 RADEX SPINE LUMBOSACRAL 2/[place] [address] [place] [address] Xr Imaging Referral ID Status Reason Start Date Expiration Date V isits Requested Visits Authorized [id number] Closed Auto-Generate d Referral 05/14/2023 06/12/2024 1 1 [facility] History of Present Illness * Gay Lin [...] lotion, powder, jewelry, piercings, perfume, makeup, nail scottish, hair accessories, or hair spray on the day of surgery. Wear loose comfortable clothing. 4. Leave your valuables at home. Bring a storage case for any glasses/contacts. 5. An adult who is responsible for you MUST drive you home and should be with you for the first 24 hours after surgery. The Day of Surgery: Arrive at [facility] at the time directed by your surgeon and check in at the desk. If you have a living will or healthcare power of collections attorney, please bring a copy. You will be taken to the pre-op holding area where you will be prepared for surgery. A physical assessment will be performed by a nurse practitioner or dimension warehouse supervisor. 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 Only take bsgs-qtr-ddsgnox or prescription medicines for pain, discomfort, or [...] Document Reviewed: 03/08/2013 ExitCare Patient Information 2013 [employer]. Colonoscopy: What to Expect at Home Your [...] Where can you learn more? Go to [email or web address] and sign in to your [facility] account. Enter E264 in the Search Health Information box to learn more about Colonoscopy: What to Expect at Home. If you do not have an account, please click on the Sign Up Now link. [employer]. Care instructions adapted under license by [facility]. This care instruction is for use with your licensed healthcare professional. If you have questions about a medical condition or this instruction, always ask your healthcare professional. [employer] disclaims any warranty or liability for your use of this information. Content Version: [id number]; Last Revised: January 11, 2013 EGD DISCHARGE [...] of fluids when exercising. MEDICATIONS: Take an susj-sjd-fajailb fiber supplement as noted above twice daily. [...] to call your physician or the hospital fire pot operator if you have any questions, and [...] Whole-grain breads, muffins, bagels, or verna bread [place] bread Whole-wheat crackers or crisp breads Whole-grain or bran cereals Oatmeal, oat bran, or grits Wheat germ Whole-wheat pasta and brown rice Read the ingredients list on food labels. Look for products that list whole as the first ingredient (eg, whole-wheat, whole oats). Choose cereals with at least 2 grams of fiber per serving. Vegetables All vegetables, especially asparagus, rocha sprouts, broccoli, [place] sprouts, cabbage, carrots, cauliflower, celery, corn, greens, [...] All nuts and seeds, especially almonds, peanuts, [place] nuts, cashews, peanut butter, walnuts, sesame and [...] be sent through Care Everywhere. * Esophagitis (Spanish) documented in this encounter Family History No [...] Contact Diagnoses Anemia ANEMIA COVID 03/03 Procedures CO ESOPHAGOGASTRODUODENOSCOPY TRANSORAL DIAGNOSTIC CO COLONOSCOPY FLX DX W/COLLJ SPEC WHEN PFRMD EGD COLONOSCOPY DIAGNOSTIC Pangulur, Bobbi Veloz MD [address] [address] [facility] Reason Comments Keratoconjunctivitis sicca Reason Comments Patient Question Reason Onset Date Comments Opened In Error 12/23/2022 Reason Comments Eye Problem Left Eye Reason Comments Appointment Cancelled Reason Comments Pain Rt lower back pain Reason Comments Medication Question Specialty Diagnoses / Procedures Referred By Contadán t Referred To Contact Pain Management Diagnoses Spondylosis without myelopathy or radiculopathy, lumbosacral region Procedures CO NJX DX/THER AGT PVRT FACET JT LMBR/SAC 1 LEVEL CO NJX DX/THER AGT PVRT FACET JT LMBR/SAC 2ND LEVEL Trinidad Licona MD [address] [place] [address] Trinidad Licona MD [address] [place] [address] Referral ID Status Reason Start Date Expiration Date Visits Re quested Visits Authorized [id number] Open 01/05/2024 01/04/2025 1 1 Specialty Diagnoses / Procedures Referred By Contadán t Referred To Contact Pain Management Diagnoses Spondylosis without myelopathy or radiculopathy, lumbosacral region Procedures CO DSTR NROLYTC AGNT PARVERTEB FCT SNGL LMBR/SACRAL CO DSTR NROLYTC AGNT PARVERTEB FCT ADDL LMBR/SACRAL Trinidad Licona MD [address] [place] [address] Trinidad Licona MD [address] [place] [address] Referral ID Status Reason Start Date Expiration Date Visits Re quested Visits Authorized [id number] Open 02/23/2024 05/24/2024 1 1 Reason Comments Diabetic Eye Exam Reason Comments Tearing Both Eyes Reason Comments Medication Problem INFORMATION SOURCE (unrecogn ized section and content) DATE CREATED AUTHOR 09/03/2021 [employer] DATE CREATED AUTHOR AUTHOR'S ORGANIZ ATION 04/30/2023 [facility] DATE CREATED AUTHOR AUTHOR'S ORGANIZ ATION 05/15/2023 [facility] DATE CREATED AUTHOR AUTHOR'S ORGANIZ ATION 12/03/2023 [facility] DATE CREATED AUTHOR AUTHOR'S ORGANIZ ATION 03/23/2024 [facility] DATE CREATED AUTHOR AUTHOR'S ORGANIZ ATION 06/15/2024 [facility] DATE CREATED AUTHOR AUTHOR'S ORGANIZ ATION 07/27/2024 [facility] DATE CREATED AUTHOR AUTHOR'S ORGANIZ ATION 09/30/2024 [facility] DATE CREATED AUTHOR AUTHOR'S ORGANIZ ATION 10/03/2024 [facility] Source Comments (unrecognize d section and content) In the event this informatio n is protected by the Federal Confidentiality of Alcohol and Drug Abuse Patient Records regulations: The Federal rules restrict any use of the information to criminally investigate or prosecute any alcohol or drug abuse patient.[facility] the event this information is protected by the Federal Confidentiality of Alcohol and Drug Abuse Patient Records regulations: The Federal rules restrict any use of the information to criminally investigate or prosecute any alcohol or drug abuse patient.[facility] Center[facility] the event this information is protected by the Federal Confidentiality of Alcohol and Drug Abuse Patient Records regulations: The Federal rules restrict any use of the information to criminally investigate or prosecute any alcohol or drug abuse patient.[facility] Center[facility] the event this information is protected by the Federal Confidentiality of Alcohol and Drug Abuse Patient Records regulations: The Federal rules restrict any use of the information to criminally investigate or prosecute any alcohol or drug abuse patient.[facility] Center[facility] the event this information is protected by the Federal Confidentiality of Alcohol and Drug Abuse Patient Records regulations: The Federal rules restrict any use of the information to criminally investigate or prosecute any alcohol or drug abuse patient.[facility] Center[facility] the event this information is protected by the Federal Confidentiality of Alcohol and Drug Abuse Patient Records regulations: The Federal rules restrict any use of the information to criminally investigate or prosecute any alcohol or drug abuse patient.[facility] Center[facility] the event this information is protected by the Federal Confidentiality of Alcohol and Drug Abuse Patient Records regulations: The Federal rules restrict any use of the information to criminally investigate or prosecute any alcohol or drug abuse patient.[facility] Center[facility] the event this information is protected by the Federal Confidentiality of Alcohol and Drug Abuse Patient Records regulations: The Federal rules restrict any use of the information to criminally investigate or prosecute any alcohol or drug abuse patient.[facility] Center[facility] the event this information is protected by the Federal Confidentiality of Alcohol and Drug Abuse Patient Records regulations: The Federal rules restrict any use of the information to criminally investigate or prosecute any alcohol or drug abuse patient.[facility] Center[facility] the event this information is protected by the Federal Confidentiality of Alcohol and Drug Abuse Patient Records regulations: The Federal rules restrict any use of the information to criminally investigate or prosecute any alcohol or drug abuse patient.[facility] Center[facility] the event this information is protected by the Federal Confidentiality of Alcohol and Drug Abuse Patient Records regulations: The Federal rules restrict any use of the information to criminally investigate or prosecute any alcohol or drug abuse patient.[facility] Care Teams (unrecognized sec tion and content) Mower Mechanic Relationship Specialty Start Date End Date Smith Sheikh MD [address] [place] [id number] PCP - General 01/08/14 Mower Mechanic Relationship Specialty Start Date End Date Smith Sheikh MD [address] [place] [id number] PCP - General Family Medicine 05/18/13 Mower Mechanic Relationship Specialty Start Date End Date Smith Sheikh MD [address] [place] [address], [place] [address] PCP - General Family Medicine 05/18/13 Mower Mechanic Relationship Specialty Start Date End Date Smith Sheikh MD [address] [place] [address], [place] [address] PCP - General 01/08/14 Mower Mechanic Relationship Specialty Start Date End Date Smith Sheikh MD [address] [place] [address], [place] [address] PCP - General Family Medicine 05/18/13 Mower Mechanic Relationship Specialty Start Date End Date Smith Sheikh MD [address] [place] [address], [place] [address] PCP - General 01/08/14 Mower Mechanic Relationship Specialty Start Date End Date Smith Sheikh MD [address] [place] [address], [place] [address] PCP - General 01/08/14 Mower Mechanic Relationship Specialty Start Date End Date Simth Sheikh MD [address] [place] [address], [place] [address] PCP - General 01/08/14 Mower Mechanic Relationship Specialty Start Date End Date Smith Sheikh MD [address] [place] [address], [place] [address] PCP - General 01/08/14 Mower Mechanic Relationship Specialty Start Date End Date Smith Sheikh MD [address] [place] [address], [place] [address] PCP - General Family Medicine 05/18/13 Mower Mechanic Relationship Specialty Start Date End Date Smith Sheikh MD [address] [facility] [place] [address] PCP - General Family Medicine 05/18/13 Mower Mechanic Relationship Specialty Start Date End Date Smith Sheikh MD [address] [place] [address] PCP - General 01/08/14 Mower Mechanic Relationship Specialty Start Date End Date Smith Sheikh MD [address] [place] [address] PCP - General 01/08/14 Mower Mechanic Relationship Specialty Start Date End Date Smith Sheikh MD [address] [place] [address] PCP - General 01/08/14 FOR RECORDS PERTAINING [...] BE BASED ON THE PRIMARY CLINICAL RECORDS. [facility] [employer] [facility]. provides no warranty or guarantee of the accuracy or completeness of information in this document.
[2024-10-05 16:48] LABS: Basophils Percent Auto 0.4 % (0.2-2.0); Eosinophils Absolute Auto 0.3 10^3/uL (0.0-0.7); Eosinophils Percent Auto 3.2 % (0.9-7.0); Hematocrit 27.1 % (36.0-48.0); Hemoglobin 8.7 g/dL (12.0-16.0); Immature Granulocytes Abs Auto 0.03 10^3/uL (0.00-0.03); Immature Granulocytes Pct Auto 0.4 % (0.0-0.5); Lymphocytes Absolute Auto 2.7 10^3/uL (1.2-3.8); Lymphocytes Percent Auto 32.3 % (20.5-60.0); Mean Corpuscular HGB Conc 32.1 g/dL (29.9-35.2); Mean Corpuscular Hemoglobin 30.3 pg (26.7-34.0); Mean Corpuscular Volume 94.4 fL (81.0-99.0); Monocytes Absolute Auto 0.6 10^3/uL (0.3-0.8); Monocytes Percent Auto 7.3 % (1.7-12.0); Neutrophils Absolute Auto 4.7 10^3/uL (1.4-6.5); Neutrophils Percent Auto 56.4 % (43.0-75.0); Platelet Count 252 10^3/uL (150-450); Red Blood Count 2.87 10^6/uL (4.20-5.40); Red Cell Distribution Width 13.8 % (11.0-15.0); White Blood Count 8.3 10^3/uL (4.0-11.0)
== END 2024-10-05 16:35 | disposition home or self-care (01) ==
LOC: LAB 16:35
PROVIDERS: PCP Family Medicine
DX: D50.0 Iron deficiency anemia secondary to blood loss (chronic) (principal)
CPT/HCPCS: 36415; 85025

== ENCOUNTER 2024-11-04 12:36 | Outpatient (OUT) | payer MEDICARE, SELFPAY ==
--- OUTSIDE RECORDS SUMMARY | 2024-11-04 12:40 | XMS_ITS | CCD ---
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 Name Role Phone Smith Sheikh Primary Care Provider [phone] Unavailable Unavailable Smith Sheikh MD Primary Care Provi israel Smith Sheikh MD Primary Care Provider Ava Salvador Unavailable Adilia Buck Unavailable Smith Sheikh MD Primary Care Provider Smith Sheikh MD Primary Care Provi israel EMETERIO ., CORBY Attending Unavailable EMETERIO ., CORBY Admitting Unavailable [facility] Primary Care Unavailable ALEX HUERTA Consulting Unavailable EMETERIO ., CORBY Consulting Unavailable [facility] Primary Care Unavailable LAKSHMIPATHY ., NARENDRANATH Attending Valery vailable LAKSHMIPATHY ., NARENDRANATH Admitting Valery vailable LAKSHMIPATHY ., NARENDRANATH Consulting Valery vailable ARCINIEGA ., DR RONY Reinoso Attending [facility] Un[facility] ARSHAD .GOGO Consulting Unavailable ARCINIEGA ., DR RONY Reinoso Admitting Unavailable LAKSHMIPATHY ., NARENDRANATH Consulting Valery vailable ARCINIEGA ., DR RONY Reinoso Consulting [facility] Unavailable ARCINIEGA ., DR RONY Reinoso Admitting Unavailable ARCINIEGA ., DR RONY Reinoso Attending Unavailable ARSHAD ., GOGO Consulting Unavailable LAKSHMIPATHY ., NARENDRANATH Attending Valery vailable LAKSHMIPATHY ., NARENDRANATH Admitting [facility]ery [facility]ailable [facility] Unavailable SUZE ., DR RONY [...] BILL Vivar Consulting Unavailable Courtney Perez Unavailable [facility] Primary Care Unava ilable [facility] [...] Care Unavailabl e ATUL FRAZIER Attending Unavailable [facility] M Primary Care Unavailabl e RAGOTHAMAN, SMITH GUILLE Primary Care Unava ilable SELF Referring Unavailable AVA DAMON Attending Unavailable AVA DAMON Referring Unavailable AVA DAMON Attending Unavailable [facility] GU[facility] Primary Care Unava ilable Smith Sheikh MD Primary Care Provider Gabriela Villatoro DO Attending Provider [phone] Gabriela Villatoro Attending Unavailable Gabriela Villatoro Admitting Unavailable [facility] M Primary Care Unavailabl Smith Yang MD Primary Care Provider Allergies Allergy Classification Reported Allergen(s) Allergy Type Date of Onset Reaction(s) Facility (20 sources) Cetirizine; Translations: [CETIRIZINE HCL] Drug Allergy 009 [facility] [employer] Phone: (20 sources) Ciprofloxacin; Translations: [Ciprofloxacin HCl TABS] Drug Allergy 013 Unknown [employer] Phone: (20 sources) Morphine; Translations: [morphine] Drug Allergy 009 chest hurting and breathing issues, Unknown Reaction, chest hurting and breathing issues [employer] Phone: (11 sources) Penicillins; Translations: [PENICILLINS] Propensity to adverse reactions to drug 009 Rash [employer] Work Phone: (20 sources) Sulfamethoxazole / Trimethoprim; Translations: [SULFAMETHOXAZOLE- TRIMETHOPRIM] Drug Allergy 009 [facility] Phone: (6 sources) traMADol Drug Allergy 021 Other (See Comments) [employer] Phone: (9 sources) Cetirizine; Translations: [Cetirizine HCl TABS] Drug Allergy 018 [facility] [employer] DO Work Phone: (5 sources) Penicillins; Translations: [Penicillins] Allergy to drug (finding) [facility] [employer] DO Work Phone: (9 sources) Sulfamethoxazole / Trimethoprim; Translations: [Bactrim TABS] Drug Allergy stomach pain [facility] [employer] DO Work Phone: (5 sources) Sulfonamides (Antibiotic); Translations: [Sulfa Drugs] Allergy to drug (finding) [facility] [employer] DO Work Phone: (18 sources) Ibuprofen; Translations: [IBUPROFEN] Drug Allergy 018 Unknown [facility] (2 sources) Penicillins Propensity to adverse reactions 009 [facility] (4 sources) Cetirizine Drug Allergy blood pressure elevated [employer] Other (6 sources) Penicillin G Benzathine; Translations: [penicillin G benzathine] Drug allergy 024 rash [facility] (2 sources) sulfaSALAzine Drug Allergy Unknown [facility] Other (17 sources) Penicillins Propensity to adverse reactions to drug 009 [facility] Work Phone: (1 source) Cetirizine Drug Allergy 015 [facility] (1 source) Ciprofloxacin Drug Allergy 015 [facility] (2 sources) Morphine Drug Allergy 015 [facility] (2 sources) Penicillins Drug allergy (disorder) 015 [facility] (2 sources) Sulfamethoxazole / Trimethoprim Drug Allergy 015 [facility] (1 source) Sulfonamides (Antibiotic) Drug allergy (disorder) 015 [facility] (2 sources) Substance with sulfonamide structure and antibacterial mechanism of action (substance) Drug allergy Unknown [employer] Other (4 sources) Cetirizine; Translations: [CETIRIZINE] Drug Allergy 009 Unknown Reaction, blood pressure elevated [facility] (3 sources) Sulfonamides (Antibiotic); Translations: [SULFA (SULFONAMIDE ANTIBIOTICS)] Propensity to adverse reactions to drug (disorder) 022 stomach upset [place] [id number] Repository (2 sources) Sulfamethoxazole; Translations: [sulfamethoxazole] Drug Allergy 024 Gastrointestinal Upset, stomach pain [facility] (2 sources) Trimethoprim; Translations: [trimethoprim] Drug Allergy 024 Gastrointestinal Upset, stomach pain [facility] (1 source) Ciprofloxacin Drug Allergy 024 [facility] Rep[facility] (1 source) Morphine Drug Allergy 024 [facility] (1 source) Penicillins Drug allergy (disorder) 024 [facility] Rep[facility] Medications Current Medications Medication Drug Class(es) Dates Sig (Normalized) Sig (Original) acetaminophen 300 mg / codeine phosphate 30 mg oral tablet (15 sources) Opioid Agonist Start: 09-16-2020 acetaminophen-cod eine (TYLENOL-COD #3) 300-30 mg per tablet 10/13/2020 Active Advair Diskus 250-50 MCG/DOSE (4 sources) take 1 puff(s) by inhalation twice daily Advair Diskus 250-50 MCG/DOSE 1 puff Inhalation Twice a day Active [id number] actuat albuterol 0.09 mg/actuat metered dose [...] Base) MCG/ACT inhaler (4 sources) Start: 02-06-20 take 2 puff(s) by inhalation every six [...] DO Start : 11-Aug-2021 Complete Start: 08-09-2020 take 1 tablet by pauline th once daily at bedtime Amlodipine 2.5 mg tablet Active 2.5 MG PO Daily at bedtime September 08, 2021 11:00pm Comment on above: Take 2.5 mg by mouth once daily. TAKE 1 TABLET DAILY Amlodipine & Diet Manage Prod 2.5 MG (4 sources) Amlodipine & t Manage Prod 2.5 MG as directed Orally Active Aspir-81 81 MG (4 sources) take 1 tablet by mouth once daily Aspir-81 81 MG 1 tablet Orally Once a day for 30 day(s) Active aspirin 81 mg delayed release oral tablet (20 sources) Platelet Aggregation Inhibitor, Nonsteroidal Anti-inflammatory Drug Start: Aspirin (Grant Low Dose Aspirin) 81 mg Tablet,Delayed Release (Dr/Ec) Active 81 MG PO Daily September 08, 2021 11:00pm BABY ASPIRIN ORA L Take by mouth. [...] DO Start : 04-Aug-2021 Complete Start: 11-07-2020 take 1 tablet by pauline once daily Atorvastatin 10 mg tablet Active 10 MG PO Daily September 08, 2021 11:00pm Comment on above: Take 10 mg by [...] Start: 05-08-2023 take 1 capsule by mo [facility] three times daily as needed for cough Benzonatate 200 MG 1 capsule Orally Three times a day prn cough for 10 days Apr, Not-Taking/PRN biotin 10 mg oral capsule (18 sources) Start: 09-09-2021 take 1 capsule by mouth twice daily Biotin 10,000 mcg Capsule Active 53829 MCG PO Twice daily September 08, 2021 11:00pm biotin 1 mg caps ule Take by mouth. Active Biotin 51741 MCG TABS Take by mouth 0 Active Comment on above: Take by mouth. calcium ascorbate 500 mg oral tablet (1 source) Start: 06-11-2024 take 1 tablet by mouth once daily Ascorbate Calcium (Vitamin C) 500 mg tablet Active 500 MG PO Daily June 10, 2024 11:00pm Qyhxrorhw-EM-Jlwmcvyyet hen (CORICIDIN D COLD/FLU/SINUS PO) (2 sources) Hqbrsbscd-XI-Bcs swartz inophen (CORICIDIN D COLD/FLU/SINUS PO) Take by mouth 0 Active ubidecarenone 200 mg oral capsule (20 sources) Start: 07-17-2021 take 10 capsules by mouth once daily Coenzyme Q10 200 mg capsule Active 200 MG PO Daily September 08, 2021 11:00pm Start: 07-17-2021 CoQ10 200 MG O ral Capsule Quantity: 30 Refills: 0 Ordered: 16-Aug-2021 DO Start : 17-Jul-2021 Complete Co Q-10 200 MG O ral Capsule TAKE DIRECTED. Quantity: 0 Refills: 0 Ordered: 02-Sep-2021 DO Active take 1 capsule by mo [facility] once daily, then take 10 capsules by mouth once, then take 10 capsules by mouth Coenzyme Q10 (CO Q 10) 10 MG CAPS Take 10 mg by mouth daily 0 Active Comment on above: Take 1 capsule by [facility] once daily. COMP-AIR NEBULIZER COMPRESSOR (3 [...] / neomycin 3.5 mg/ml / polymyxin b 85792 unt/ml ophthalmic suspension (4 sources) Aminoglycoside Antibacterial, Polymyxin-class Antibacterial, Corticosteroid Start: 4 take 1 drop(s) into the eye(s) three times daily NEOMYCIN-POLYMY APOLLO-DEXAMETH 3.5 MG/ML-10,000 UNIT/ML-0.1% EYE DROPS Use 1 Drop in both eyes three times a day. 5 mL 08/29/2024 Active Start: 11-18-2020 Neomycin-Polym yxin-Dexameth 3.5-89577-9.1 Ophthalmic Ointment Quantity: 3 Refills: 0 Ordered: [...] tablet ferrous sulfate 325 mg oral tablet (17 sources) Start: 2 take 1 tablet by mouth three times weekly Ferrous Sulfate 325 mg (65 mg iron) Tablet Active 325 MG PO 3 Times a week November 28, 2021 12:00am Wednesday, Wednesday, Wednesday Start: 09-01-2021 take 1 tablet by pauline th twice daily ferrous sulfate (IRON 325) 325 [...] Ordered: 17-Mar-2021 DO Start : 17-Mar-2021 Complete take 1 tablet by pauline th once daily at breakfast ferrous sulfate 325 (65 FE) mg tablet Take 1 tablet (325 mg total) by mouth daily with breakfast. Wednesday, Wednesday, WEDNESDAY Active fexofenadine hydrochloride 180 mg oral tablet (13 sources) Histamine-1 Receptor Antagonist take 1 tablet by mouth once daily fexofenadine (DELMI) 180 mg tablet Take 180 mg by mouth once daily. Active Delmi Active Comment on above: Take 180 mg by mouth once daily. fluticasone propionate 0.05 mg/actuat metered dose nasal spray ( sources) Corticosteroid Start: take 2 spray(s) nasal [...] bedtime. 12 g 3 06/23/2022 06/23/2023 Active take 1 spray(s) nasa l route in the morning fluticasone propionate (FLONASE) 50 mcg/actuation nasal spray Administer 1 spray into each nostril in the morning. Active 60 actuat fluticasone propionate 0.25 mg/actuat [...] Active take 1 puff(s) by in halation in the morning fluticasone propion-salmeteroL (ADVAIR) 250-50 mcg/dose DISKUS Inhale 1 puff in the morning and 1 puff before bedtime. Active take 1 puff(s) by in halation [...] m cg tablet 08/09/2020 Active Start: 01-08-2014 take 1 tablet by pauline th in the morning levothyroxine (SYNTHROID, LEVOTHROID) 100 MCG tablet Take 1 tablet (100 mcg total) by mouth in the morning. 05/29/2022 Active take 1 tablet by pauline th [...] Apr, Not-Taking/PRN meloxicam 7.5 mg oral tablet (11 sources) Nonsteroidal Anti-inflammatory Drug Start: 07-22-2023 meloxicam (MOBIC) 7.5 mg tablet 02/16/2024 Active metFORMIN hydrochloride 500 mg oral tablet (20 sources) Biguanide Start: 09-09-2021 End: 06-11-2024 take 1 tablet by mouth once daily in the evening Metformin 500 mg tablet Active 500 MG PO Every evening June 11, 2024 11:04am Start: 05-29-2021 metFORMIN HCl - 500 MG Oral Tablet Quantity: 270 Refills: 0 Ordered: 29-May-2021 DO Start : 29-May-2021 Complete Start: 11-27-2019 take 2 tablets by mo uth once daily in the morning Metformin 500 mg Tablet Active 1000 MG PO Every morning September 08, 2021 11:00pm Start: 04-05-2009 metformin hcl( GLUCOPHAGE 500 MG TAB) Take by mouth. 0 04/05/2009 Active take 0.5 tablet by m outh once daily at breakfast metFORMIN (GLUCOPHAGE) 1000 mg tablet Take 0.5 tablets (500 mg total) by mouth daily with breakfast. Active metFORMIN (GLUCO PHAGE) 1,000 mg tablet [...] 04-05-2009 mometasone fur oate(NASONEX 50 MCG/ACTUATION SPRAY) qeiqjizi-zch-MP-lycopen-lute in (CENTRUM SILVER) 0.4 mg-300 mcg- 250 mcg tablet (4 sources) take 1 tablet by mouth once ayhhgdnf-gqt-RC-lycopen-lutein (CENTRUM SILVER) 0.4 mg-300 mcg- 250 mcg tablet Take by mouth. Active Oexjmhgvqqft-Cflwtmzb-Wweecr Tablet (1 source) Star t: 06-10 take 1 tablet by mouth once daily Vbddmanrgfuf-Kgpunwui-Jnxown Tablet Active 1 TAB PO Daily November 28, 2021 12:00am MV with Fnx-Owmqozti-Okaqdn 0.4 mg-300 mcg- 250 mcg tab (7 sources) MV with Min-Lyco pene-Lutein 0.4 mg-300 mcg- 250 mcg tab Take by mouth. Active MV with Min-Lyco pene-Lutein 0.4 mg-300 mcg- 250 mcg tab Take by mouth. 0 Active Comment on above: Take by mouth. Nirmatrelvir-Ritonavir (Paxlovid) 300 mg (150 mg x 2)-100 mg tablets,dose pack (1 source) Start: 06-11-2024 Nirmatrelvir-Ritonavir (Paxlovid) 300 mg (150 mg x 2)-100 mg tablets,dose pack Active 0 PO .COMPLEX June 10, 2024 11:00pm take TWO 150 mg tablets of nirmatrelvir with ONE 100 mg tablet of ritonavir twice daily for 5 days PO olopatadine 1 mg/ml ophthalmic solution (19 sources) [...] tablet (20 sources) Proton Pump Inhibitor Start: 4 take 1 tablet by mouth at bedtime pantoprazole (PROTONIX) 40 mg EC tablet Take 1 tablet (40 mg total) by mouth in the morning and at bedtime. 180 tablet 1 10/10/2024 Active Start: 10-10-2024 take 1 tablet by pauline th at bedtime pantoprazole (PROTONIX) 40 mg EC tablet Take 1 tablet (40 mg total) by mouth in the morning and at bedtime. 180 tablet 1 10/10/2024 Active Start: 05-02-2021 Pantoprazole S odium 40 MG Oral Tablet Delayed Release Quantity: 90 Refills: 0 Ordered: 26-Jun-2021 DO Start : 02-May-2021 Complete Start: 10-21-2020 End: 11-28-2021 take 1 tablet by mouth once daily Pantoprazole (Protonix) 40 mg Tablet,Delayed Release (Dr/Ec) Discontinued 40 MG PO Daily September 08, 2021 11:00pm November 28, 2021 10:24am End: 10-10-2024 take 1 tablet by mouth in the morning pantoprazole (PROTONIX) 20 mg EC tablet Take 1 tablet (20 mg total) by mouth in the morning. 10/10/2024 Discontinued Pantoprazole Sod ium Active Comment on above: Take 40 mg by mouth once daily. Potassium Chloride (2 sources) Potassium Chlori de (KLOR-CON 10 PO) Take by mouth 0 Active Pravastatin (4 sources) HMG-CoA Reductase Inhibitor Pravastatin Sodium Active predniSONE 20 mg oral tablet (1 source) Start: 4 take 2 tablets by mouth once daily Prednisone 20 mg tablet Active 20 MG PO .COMPLEX June 10, 2024 11:00pm Take 2 tabs po daily x 5 days ramipril 10 mg oral capsule (20 sources) Angiotensin Converting Enzyme Inhibitor Start: 1 Ramipril 10 MG Oral Capsule Quantity: 90 Refills: 0 Ordered: 17-Aug-2021 DO Start : 30-May-2021 Complete Start: 10-09-2020 take 1 capsule by mo [facility] once daily Ramipril (Altace) 10 mg Capsule Active 10 MG PO Daily September 08, 2021 11:00pm Start: 04-05-2009 ramipril(ALTAC E 10 MG TAB) [...] 1 tablet by mouth four times daily Sucralfate 1 gram Tablet Active 1 GM PO Four times daily September 08, 2021 11:00pm Sucralfate Activ e Comment on above: Take 1 g by mouth fo ur times daily. tiZANidine 2 mg oral tablet (4 sources) Central alpha-2 Adrenergic Agonist take 1 tablet by mouth at bedtime tiZANidine (ZANAFLEX) 2 mg tablet Take 1 tablet (2 mg total) by mouth in the morning and at bedtime. Active Completed/Discontinued Medications Medication Drug Class(es) Dates [...] 0 07/06/2022 12/04/2022 Discontinued (LIST CLEANUP) Start: 09-09-2021 End: 06-11-2024 celecoxib (CELEBREX) 200 MG capsule TAKE 1 [...] 01/22/2021 04/22/2021 Active take 1 capsule by [facility] twice daily at mealtime CeleBREX 200 MG Oral Capsule TAKE 1 CAPSULE TWICE DAILY WITH FOOD. Quantity: 0 Refills: 0 Ordered: 02-Sep-2021 DO Active Comment on above: Take 100 mg by mouth . clindamycin 150 mg oral capsule (4 sources) Lincosamide Antibacterial Start: 2020 Clindamycin HCl - 150 MG Oral Capsule Quantity: 21 Refills: 0 Ordered: 26-Mar-2021 DO Start : 26-Mar-2021 Complete Esomeprazole Magnesium 20 mg Tablet,Delayed Release (Dr/Ec) (1 source) Start: 2020 End: 2021 take 1 tablet by mouth twice daily as needed for gastroesophageal reflux disease Esomeprazole Magnesium 20 mg Tablet,Delayed Release (Dr/Ec) Discontinued 20 MG PO Twice daily as needed for GERD September 08, 2021 11:00pm November 28, 2021 10:24am 2 ml fentaNYL 0.05 mg/ml injection (1 source) Opioid Agonist Start: 2023 End: 2023 fentaNYL (SUBLIMAZE) injection ibuprofen 600 mg oral tablet (4 sources) Nonsteroidal Anti-inflammatory Drug Start: 2020 Ibuprofen 600 MG Oral Tablet Quantity: 20 Refills: 0 Ordered: 26-Mar-2021 DO Start : 26-Mar-2021 Complete iohexol (OMNIPAQUE 180) injection (1 source) Start: 2023 End: 2023 iohexol (OMNIPAQUE 180) injection 10 ml lidocaine hydrochloride 10 mg/ml injection (2 sources) Antiarrhythmic, Amide Local Anesthetic Start: 2023 End: 2023 lidocaine PF 1 % injection Start: 03-07-2021 [...] Ordered: 17-Jun-2021 DO Start : 16-Jun-2021 Complete Multivitamin-Mineral s-Lutein (Centrum Silver) Tablet (1 source) Start: 11-28-2021 End: 11-28-2021 take 1 tablet by mouth once daily Multivitamin-Minera ls-Lutein (Centrum Silver) Tablet Discontinued 1 TAB PO Daily November 28, 2021 12:00am November 28, 2021 10:24am MV with Ffo-Ntukgczw-Uhqtzp (CENTRUM SILVER) 0.4-300-250 mg-mcg-mcg tab (4 sources) MV with Pes-Pboclidd-Iiqiid (CENTRUM SILVER) 0.4-300-250 mg-mcg-mcg tab Take by [...] Drop ( AK-DILATE, THERESA-SYNEPHRINE) polyethylene glycol 3350 84271 mg powder for oral solution (8 sources) [...] tropicamide 1 % 1 Drop (MYDR IACYL) vitamin b12 2.5 mg sublingual tablet (7 sources) Vitamin B12 Start: 09-09-2021 End: 06-11-2024 take 1 tablet under the tongue once daily Cyanocobalamin (Vitamin B-12) (Vitamin B-12) 2,500 mcg Tablet, Sublingual Discontinued 2500 MCG SUBLINGUAL Daily September 08, 2021 11:00pm June 11, 2024 11:03am take 1 tablet by mouth in the mo rning cyanocobalamin (vitamin B-12) 100 MCG tablet Take 1 tablet (100 mcg total) by mouth in the morning. Active take 0.5 tablet by mouth once da prerna vitamin B-12 (CYANOCOBALAMIN) 100 MCG tablet Take 0.5 tablets by mouth daily 0 Active Problems Active Problems Problem Classification Problem Date Documented Date Episodic/Chronic Asthma (4 sources) Mild intermittent asthma; Translations: [Mild intermittent asthma, uncomplicated] Chronic Cardiac dysrhythmias (1 source) Tachycardia, unspecified; Translations: [Tachycardia, unspecified] Onset: 06-12-20 Episodic Cataract (17 sources) Bilateral pseudophakia; Translations: [Presence of intraocular lens] Onset: 11-03-20 Resolved : 06-09-20 Chronic Chronic obstructive pulmonary disease and bronchiectasis (6 sources) Acute exacerbation of chronic obstructive airways disease; Translations: [Chronic obstructive pulmonary disease with (acute) exacerbation] Onset: 06-13-20 Chronic Conduction disorders (7 sources) EKG: right [...] Hyperglycemia, unspecified; Translations: [Hyperglycemia, unspecified] Onset: 06-12-20 Episodic Disorders of lipid metabolism (7 sources) [...] Chronic pain; Translations: [Other chronic pain] Onset: 08-02-2008-02-2017 Chronic Residual codes; unclassified (5 sources) Sleep [...] (1 source) COVID-19; Translations: [COVID-19] Onset: 06-13-20 24 Past or Other Problems Problem Classification Problem [...] 04-29-2016 04-29-2016 Chronic Other aftercare (1 source) prison (current) use of aspirin; Translations: [[facility] CURRENT USE OF ASPIRIN] Onset: 09-07-2022 Episodic Other aftercare (1 source) Other half-way (current) drug therapy; Translations: [OTH FILM CLEANER CURRENT DRUG THERAPY] Onset: 09-07-2022 Episodic Other aftercare (1 source) terminal operator (current) use of oral hypoglycemic drugs; Translations: [FILM CLEANER USE ORAL HYPOGLYCEMIC DX] Onset: 09-07-2022 Episodic Other aftercare (2 sources) Long-term current use of aspirin; Translations: [prison (current) use of aspirin] Onset: 09-07-2022 04-07-2023 Episodic Other aftercare (2 sources) Long-term current use of oral hypoglycemic medication; Translations: [terminal operator (current) use of oral hypoglycemic drugs] Onset: 09-07-2022 04-07-2023 Episodic Other aftercare (2 sources) Long-term current use of drug therapy; Translations: [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] Onset: 09-07-2022 04-07-2023 Episodic [...] Translations: [Personal history of COVID-19] Onset: 07-26-2024 Viral infection (9 sources) Disease caused by 2019-nCoV; Translations: [COVID-19] Onset: 06-12-2024 Resolved: 06-13-2024 06-11-2024 Episodic Results Test Name Value Interpretation Reference Range Facility CBC auto differentialOrdered By: Mony Paula on 10-12-2024 External % Basophils 0.4 [facility] External Absolute Basophil 0 [facility] External Absolute Monocytes 0.6 [facility] External Absolute Neutrophils 4.7 [facility] External Hematocrit Hct 8.3 [facility] External Hemoglobin 9.7 [facility] External Lymphocyte, Atypical 32.3 [facility] External MCH 30.3 [facility] External Mchc 32.1 [facility] External Mcv 94.4 [facility] External Monocytes 7.3 [facility] External Mpv 9 [facility] External Platelet Count 252 [facility] External Rbc Count 2.84 [facility] External Rdw 13.8 [facility] External Wbc Count 8.3 [facility] No Panel InformationOrdered By: Mony Paula on 10-12-2024 External Absolute Lymphocyte 2.7 [facility] Pathology study report docum entOrdered By: Zoya Castillo on 10-04-2024 Pathology study [facility] Other [place] 09-30-2024 L Specimen: [id number] Received: 10/02/24 Status: ERIN Chamberlain Num: [id number] Spec Type: Surgical Subm Dr: Gabriela Villatoro DO Tissues: A Stomach - Biopsy/Polyp (SUPERFICIAL ULCER FROM CARDI) B Stomach - Biopsy/Polyp (GE JUNCTION) Procedures: PAS - LGRN, HE/4, Gross/Micro L4/2, PAS-Alcian Blue/2 Age/ Patient Sex Location Account Attending Physician Marah Silva 74/F [facility] [id number] Gabriela Villatoro,DO SPEC NUM: [id number] RECD: 10/02/24 STATUS: ERIN CHAMBERLAIN NUM: [id number] MARLON: 09/30/[address] [facility] [address]: Gabriela Villatoro DO ENTERED: 10/02/24 [facility] DR: Sushila,Lab SPEC TYPE: Surgical DEPT: OSORIO KEN ENTERED BY: [id number] RECV BY: [id number] ORDERED: PAS - LGRN, HE/4, Gross/Micro L4/2, PAS-Alcian Blue/2 ORDERED: PAS - LGRN, HE/4, Gross/Micro L4/2, PAS-Alcian Blue/2 Pathological Diagnosis A, gastric cardia biopsy: -Focal acute superficial ulceration with associated fibrin exudate attaching to the degenerated and inflamed (with few PMN) superficial mucosa -Negative for malignancy, intestinal metaplasia (also per PAS-AB), glandular atypia, or significant chronic inflammation in lamina propria B, GE junction biopsy: -Focal mild acute erosive and ulcerative esophagitis -No evidence of intestinal metaplasia (also per PAS-AB) or glandular dysplasia -PASF special stain showing only rare or minimal degenerated hyphae of unknown significance Clinical Information Superficial ulcers of the cardia; medium hiatal hernia Gross Description Part A is received in formalin labeled with the patients name and superficial ulcer from cardia are 2 villeda-gomez, focally erythematous, friable, 0.5 and 0.6 cm in greatest dimension tissue strips. The specimen is entirely submitted in a single cassette. (1, ns, [id number]) SCOTT Specimen: [id number] Received: 10/02/24 Status: ERIN Chamberlain Num: [id number] Spec Type: Surgical Subm Dr: Gabriela Villatoro DO Tissues: A Stomach - Biopsy/Polyp (SUPERFICIAL ULCER FROM CARDI) B Stomach - Biopsy/Polyp (GE JUNCTION) Procedures: PAS - LGRN, HE/4, Gross/Micro L4/2, PAS-Alcian Blue/2 Patient: Marah Silva [id number] (Continued) Specimen: [id number] Received: 10/02/24 (Continued) Gross Description (Continued) Signed (signature on file) Zoya Castillo MD 10/04/24 1826 Specimen: [id number] Received: 10/02/24 Status: ERIN Chamberlain Num: [id number] Spec Type: Surgical Subm Dr: Gabriela Villatoro DO Tissues: A Stomach - Biopsy/Polyp (SUPERFICIAL ULCER FROM CARDI) B Stomach - Biopsy/Polyp (GE JUNCTION) Procedures: PAS - LGRN, HE/4, Gross/Micro L4/2, PAS-Alcian Blue/2 Patient: Marah Silva [id number] (Continued) Specimen: [id number] Received: 10/02/24 (Continued) Gross Description (Continued) Part B is received in formalin labeled with the patients name and GE junction are 6 pale gomez, feathery, 0.2 to 0.3 cm in greatest dimension tissue bits. The specimen is entirely submitted in a single cassette. (1, ns, [id number] B) Microscopic Description Microscopic examinations are performed supporting the above interpretation CPT Codes 55365g6 [id number] [id number] Specimen: [id number] Received: 10/02/24 Status: ERIN Chamberlain Num: [id number] Spec Type: Surgical Subm Dr: Gabriela Villatoro DO Tissues: A Stomach - Biopsy/Polyp (SUPERFICIAL ULCER FROM CARDI) B Stomach - Biopsy/Polyp (GE JUNCTION) Procedures: PAS - LGRN, HE/4, Gross/Micro L4/2, PAS-Alcian Blue/2 Patient: Marah Silva [id number] (Continued) Signed (signature on file) (more content not included)... Normal [facility] Surgical PathologyOrdered By : Mony Palua on 09-30-2024 [facility] CNPGuillermina 09-28-2024 CNPN Telephone (OPHTLN) PENGMARAH Alvarez ([id number]) 1950 F Date Time Provider Department 09/28/24 AVA DAMON During your visit today, we recorded the following information about you: Krishna Lathamia 09/28/2024 8:58 AM Signed Pt is requesting a new eye drop prescription or another alternative due to the rx that was given being to expensive. Pt states they are 25 dollars and too much. Would like something else. [facility] [place] on [address] Kirt Astrid 09/28/2024 2:54 PM Signed Called pt and [...] Date Reviewed: 08/29/2024 Reviewed by: Ava Damon, MAYLIN - Fully Assessed Reason for Visit: Medication Problem [65] Prescriptions as of 09/28/2024 - DAFPWOUS-LEOKRHBDI-P EXAMETH 3.5 MG/ML-10,000 UNIT/ML-0.1% EYE DROPS Use [...] by mouth once daily. - MV with Ekl-Eofvxqor-Dhenea 0.4 mg-300 mcg- 250 mcg tab Take [...] not seem to be accurate. 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 Encounter Status:Closed by ASTRID LATHAM on 09/28/24 Normal [facility] CBC AND AUTO DIFFon 06-13-20 ABSOLUTE BASOPHIL 0.0 X10E9/L Normal 0.0-0.2 [facility] Comment on above: Performed By: #### C BCA, 54643-6, CMP, 71920-4, 00366-9 #### [facility] ([id number]) [address] [place] [address], [place] [address] ABSOLUTE NEUTROPHIL 7.1 X10E9/L High 1.5-6.6 [facility] Comment on above: Performed By: #### C BCA, 65676-3, CMP, 82929-1, 17040-3 #### [facility] ([id number]) [address] [place] [address] 67652 Basophils/100 WBC (Bld) 0.2 % Normal [facility] Comment on above: Performed By: #### Siria BCA, 48408-1, CMP, 98676-3, 59587-6 #### [facility] ([id number]) [address] [place] [address] 31987 Eosinophils (Bld) [#/Vol] 0.0 10*3/uL Normal 0.0-0.4 [facility] Comment on above: Performed By: #### Siria BCA, 02556-5, CMP, 14654-2, 57310-0 #### [facility] ([id number]) [address] [place] [address] 74141 Eosinophils/100 WBC (Bld) 0.0 % Normal [facility] Comment on above: Performed By: #### Siria RAMIREZ, 77225-8, CMP, 70808-3, 78088-1 #### [facility] ([id number]) [address] [place] [address] 04073 Erythrocyte distribution width (RBC) [Ratio] 16.0 % High 11.5-15.0 [facility] Comment on above: Performed By: #### Siria BCA, 08744-7, CMP, 74483-8, 07767-4 #### [facility] ([id number]) [address] [place] [address] 47992 Hematocrit (Bld) [Volume fraction] 30.8 % Low 35-47 [facility] Comment on above: Performed By: #### Siria BCA, 51062-3, CMP, 23701-4, 75026-4 #### [facility] ([id number]) [address] [place] [address] Hemoglobin (Bld) [Mass/Vol] 10.3 g/dL Low 11.7-15.5 [facility] Comment on above: Performed By: #### C JAMES, 91421-8, CMP, 82883-8, 18206-7 #### [facility] ([id number]) [address] [place] [address] 74310 Lymphocytes (Bld) [#/Vol] 1.0 10*3/uL Normal 1.0-3.5 [facility] Comment on above: Performed By: #### Siria RAMIREZ, 81185-0, CMP, 35037-9, 39377-7 #### [facility] ([id number]) [address] [place] [address] 78382 Lymphocytes/100 WBC (Bld) 12.1 % Normal [facility] Comment on above: Performed By: #### Siria RAMIREZ, 40121-9, CMP, 71115-8, 19628-4 #### [facility] ([id number]) [address] [place] [address] 58438 MCH (RBC) [Entitic mass] 29.9 pg Normal 27-34 [facility] Comment on above: Performed By: #### Siria RAMIREZ, 81183-5, CMP, 73011-4, 27927-8 #### [facility] ([id number]) [address] [place] [address] 22119 MCHC (RBC) [Mass/Vol] 33.4 g/dL Normal 32-36 [facility] Comment on above: Performed By: #### Siria RAMIREZ, 93207-8, CMP, 24492-6, 27526-5 #### [facility] ([id number]) [address] [place] [address] 03335 MCV (RBC) [Entitic vol] 90 fL Normal 80-100 [facility] Comment on above: Performed By: #### Siria RAMIREZ, 25124-3, CMP, 75940-6, 09609-5 #### [facility] ([id number]) [address] [place] [address] 80029 Monocytes (Bld) [#/Vol] 0.4 10*3/uL Normal 0-0.9 [facility] Comment on above: Performed By: #### Siria RAMIREZ, 81751-5, CMP, 12869-2, 85206-6 #### [facility] ([id number]) [address] [place] [address] 23379 Monocytes/100 WBC (Bld) 4.8 % Normal [facility] Comment on above: Performed By: #### Siria RAMIREZ, 90089-9, CMP, 38305-0, 58422-8 #### [facility] ([id number]) [address] [place] [address] 99463 Neutrophils/100 WBC (Bld) 82.9 % Normal [facility] Comment on above: Performed By: #### Siria RAMIREZ, 95161-6, CMP, 77846-7, 92491-0 #### [facility] ([id number]) [address] [place] [address] 51314 Platelet mean volume (Bld) [Entitic vol] 8.0 fL Normal 7-12 [facility] Comment on above: Performed By: #### Siria RAMIREZ, 74301-0, CMP, 35830-2, 86711-0 #### [facility] ([id number]) [address] [place] [address] 70998 Platelets (Bld) [#/Vol] 200 10*3/uL Normal 150-450 [facility] Comment on above: Performed By: #### Siria BCA, 71137-7, CMP, 70763-4, 27862-1 #### [facility] ([id number]) [address] [place] [address] 07028 RBC COUNT 3.43 X10E12/L Low 3.80-5.20 [facility] Comment on above: Performed By: #### C BCA, 98342-3, CMP, 99626-0, 74053-3 #### [facility] ([id number]) [address] [place] [address] 49155 WBC (Bld) [#/Vol] 8.5 10*3/uL Normal 4.0-11.0 [facility] Comment on above: Performed By: #### C BCA, 53361-2, CMP, 24450-3, 87861-5 #### [facility] ([id number]) [address] [place] [address] 98961 COMPREHENSIVE METABOLIC PANE [facility] 06-13-2024 Albumin [Mass/Vol] 3.4 g/dL Normal 3.2-5.3 [facility] Comment on above: Performed By: #### C BCA, 04130-0, CMP, 20216-2, 97806-7 #### [facility] ([id number]) [address] [place] [address] 18246 ALP [Catalytic activity/Vol] 69 U/L Normal 39-130 [facility] Comment on above: Performed By: #### C BCA, 39890-7, CMP, 86243-5, 79119-6 #### [facility] ([id number]) [address] [place] [address] 38815 ALT [Catalytic activity/Vol] 34 U/L High 0-31 [facility] Comment on above: Performed By: #### C BCA, 85651-6, CMP, 01874-4, 75836-4 #### [facility] ([id number]) [address] [place] [address] 29091 Anion gap [Moles/Vol] 8 mmol/L Normal 5-15 [facility] Comment on above: Performed By: #### C BCA, 97096-7, CMP, 78126-8, 14677-8 #### [facility] ([id number]) [address] [place] [address] 78280 AST [Catalytic activity/Vol] 31 U/L Normal 0-41 [facility] Comment on above: Performed By: #### C BCA, 98342-0, CMP, 52446-8, 91919-2 #### [facility] ([id number]) [address] [place] [address] 87519 Bilirubin [Mass/Vol] 0.3 mg/dL Normal 0.3-1.2 [facility] Comment on above: Performed By: #### C BCA, 00688-2, CMP, 66382-4, 73993-1 #### [facility] ([id number]) [address] [place] [address] 39401 Calcium [Mass/Vol] 8.5 mg/dL Normal 8.5-10.5 [facility] Comment on above: Performed By: #### C BCA, 77080-4, CMP, 65404-4, 11969-0 #### [facility] ([id number]) [address] [place] [address] 72755 Chloride [Moles/Vol] 107 mmol/L Normal 98-109 [facility] Comment on above: Performed By: #### C BCA, 20120-5, CMP, 91145-4, 00881-7 #### [facility] ([id number]) [address] [place] [address] 98835 CO2 [Moles/Vol] 21 mmol/L Low 22-32 [facility] Comment on above: Performed By: #### C BCA, 94725-8, CMP, 45280-3, 38749-7 #### [facility] ([id number]) [address] [place] [address] 23490 Creatinine [Mass/Vol] 0.62 mg/dL Normal 0.40-1.00 [facility] Comment on above: Result Comment: METH OD TRACEABLE TO IDMS STANDARD Performed By: #### C BCA, 68647-0, CMP, 55536-5, 97039-0 #### [facility] ([id number]) [address] [place] [address] 73174 eGFR (CKD-EPI) NON-RACE DEPENDENT >90 Normal >59 [facility] Comment on above: Result Comment: Reported eGFR is based on the CKD-EPI 2020 equation that does not use a race coefficient. Performed By: #### C BCA, 73058-4, CMP, 73924-7, 30624-9 #### [facility] ([id number]) [address] [place] [address] 87832 Glucose [Mass/Vol] 159 mg/dL High 65-99 [facility] Comment on above: Performed By: #### C BCA, 70824-4, CMP, 90368-6, 26855-6 #### [facility] ([id number]) [address] [place] [address] 24057 Potassium [Moles/Vol] 3.8 mmol/L Normal 3.5-5.0 [facility] Comment on above: Performed By: #### C BCA, 73701-7, CMP, 03584-9, 19374-4 #### [facility] ([id number]) [address] [place] [address] 30196 Protein [Mass/Vol] 6.3 g/dL Normal 6.0-8.0 [facility] Comment on above: Performed By: #### C BCA, 59274-1, CMP, 04125-8, 78501-7 #### [facility] ([id number]) [address] [place] [address] 54878 Sodium [Moles/Vol] 136 mmol/L Normal 134-146 [facility] Comment on above: Performed By: #### C BCA, 88453-2, CMP, 11234-6, 04974-8 #### [facility] ([id number]) [address] [place] [address] 39304 Urea nitrogen [Mass/Vol] 17 mg/dL Normal 5-27 [facility] Comment on above: Performed By: #### C JAMES, 60827-5, CMP, 20609-5, 35267-0 #### [facility] ([id number]) [address] [place] [address] 93209 Glucose Glucometer (BldC) [M ass/Vol]on 06-13-2024 Glucose [Mass/Vol] 233 mg/dL High 65-99 [facility] Glucose [Mass/Vol] 268 mg/dL High 65-99 [facility] Glucose [Mass/Vol] 153 mg/dL High 65-99 [facility] Glucose [Mass/Vol] 276 mg/dL High 65-99 [facility] MAGNESIUMon 06-13-2024 Magnesium [Mass/Vol] 1.5 mg/dL Low 1.8-2.6 [facility] Comment on above: Performed By: #### C JAMES, 34316-8, [facility], 16306-0, 44677-3 #### [facility] ([id number]) [address] [place] [address] 31598 Troponin I.cardiac High sens itivity method [Mass/Vol]on 06-13-2024 3 HOUR TROP I, HIGH SENSITIVITY 100 ng/L High <16 [facility] Comment on above: Result Comment: Elevations of hs-Troponin may be due to causes other than myocardial ischemia. Recommend serial hs-Troponin testing be performed. For the initial evaluation and management of chest pain patients, refer to the algorithms linked below. Emergency Patient: [email or web address] uh=[email or web address] Inpatient: [email or web address]& uh=acaea Performed By: #### C BCA, 72513-1, CMP, 54604-0, 64395-8 #### [facility] ([id number]) [address] [place] [address] 35015 1 HOUR TROP I, HIGH SENSITIVITY 116 ng/L High <16 [facility] Comment on above: Result Comment: Elevations of hs-Troponin may be due to causes other than myocardial ischemia. Recommend serial hs-Troponin testing be performed. For the initial evaluation and management of chest pain patients, refer to the algorithms linked below. Emergency Patient: [email or web address]& uh=acaea Inpatient: [email or web address] uh=acaea Performed By: #### C BCA, 54256-6, CMP, 10452-6, 13697-5 #### [facility] ([id number]) [address] [place] [address] 38395 TROPONIN I, HIGH SENSITIVITY 116 ng/L High <16 [facility] Comment on above: Result Comment: Elevations of hs-Troponin may be due to causes other than myocardial ischemia. Recommend serial hs-Troponin testing be performed. For the initial evaluation and management of chest pain patients, refer to the algorithms linked below. Emergency Patient: [email or web address]& uh=acaea Inpatient: [email or web address]& uh=acaea Performed By: #### C BCA, 93210-6, CMP, 53083-1, 64667-3 #### [facility] ([id number]) [address] [place] [address] 47918 Beta hydroxybutyrate [Moles/ Vol]on 06-12-2024 BetaHydroxybutyrate 0.20 mmol/L Normal 0.02-0.27 [facility] Comment on above: Performed By: #### 6 873-4, 97298-1, 07071-9 #### [facility] ([id number]) [address] [place] [address] 14705 CBC AND AUTO DIFFon 06-12-20 ABSOLUTE BASOPHIL 0.0 X10E9/L Normal 0.0-0.2 [facility] Comment on above: Performed By: #### C BCA, 11227-2, CMP, 07033-9, 32581-8 #### [facility] ([id number]) [address] [place] [address] 51494 ABSOLUTE NEUTROPHIL 5.7 X10E9/L Normal 1.5-6.6 [facility] Comment on above: Performed By: #### C BCA, 17764-8, CMP, 10494-3, 20138-2 #### [facility] ([id number]) [address] [place] [address] 30554 Basophils/100 WBC (Bld) 0.1 % Normal [facility] Comment on above: Performed By: #### C BCA, 20961-7, CMP, 49020-4, 01970-9 #### [facility] ([id number]) [address] [place] [address] 52405 Eosinophils (Bld) [#/Vol] 0.0 10*3/uL Normal 0.0-0.4 [facility] Comment on above: Performed By: #### C BCA, 23824-5, CMP, 29809-9, 31336-8 #### [facility] ([id number]) [address] [place] [address] 72202 Eosinophils/100 WBC (Bld) 0.0 % Normal [facility] Comment on above: Performed By: #### C BCA, 93269-6, CMP, 85097-5, 24111-8 #### [facility] ([id number]) [address] [place] [address] 54419 Erythrocyte distribution width (RBC) [Ratio] 16.2 % High 11.5-15.0 [facility] Comment on above: Performed By: #### C BCA, 13344-7, CMP, 98745-3, 69958-5 #### [facility] ([id number]) [address] [place] [address] 35716 Hematocrit (Bld) [Volume fraction] 32.5 % Low 35-47 [facility] Comment on above: Performed By: #### C JAMES, 19119-3, CMP, 39727-6, 41358-7 #### [facility] ([id number]) [address] [place] [address] 70381 Hemoglobin (Bld) [Mass/Vol] 10.7 g/dL Low 11.7-15.5 [facility] Comment on above: Performed By: #### C JAMES, 60355-5, CMP, 13397-0, 19602-3 #### [facility] ([id number]) [address] [place] [address] 16316 Lymphocytes (Bld) [#/Vol] 0.6 10*3/uL Low 1.0-3.5 [facility] Comment on above: Performed By: #### C BCA, 70407-5, CMP, 31177-7, 67836-9 #### [facility] ([id number]) [address] [place] [address] 77800 Lymphocytes/100 WBC (Bld) 8.7 % Normal [facility] Comment on above: Performed By: #### Siria BCA, 78269-5, CMP, 01216-2, 04321-1 #### [facility] ([id number]) [address] [place] [address] 86549 MCH (RBC) [Entitic mass] 29.6 pg Normal 27-34 [facility] Comment on above: Performed By: #### Siria RAMIREZ, 78546-2, CMP, 57561-0, 87325-2 #### [facility] ([id number]) [address] [place] [address] 73058 MCHC (RBC) [Mass/Vol] 32.9 g/dL Normal 32-36 [facility] Comment on above: Performed By: #### Siria RAMIREZ, 40694-7, CMP, 96359-3, 56348-4 #### [facility] ([id number]) [address] [place] [address] 24223 MCV (RBC) [Entitic vol] 90 fL Normal 80-100 [facility] Comment on above: Performed By: #### Siria RAMIREZ, 52098-7, CMP, 63258-1, 42394-2 #### [facility] ([id number]) [address] [place] [address] 21590 Monocytes (Bld) [#/Vol] 0.2 10*3/uL Normal 0-0.9 [facility] Comment on above: Performed By: #### Siria RAMIREZ, 09663-2, CMP, 06338-1, 85737-5 #### [facility] ([id number]) [address] [place] [address] 35454 Monocytes/100 WBC (Bld) 3.3 % Normal [facility] Comment on above: Performed By: #### Siria RAMIREZ, 47192-6, CMP, 80866-2, 25950-0 #### [facility] ([id number]) [address] [place] [address] 96355 Neutrophils/100 WBC (Bld) 87.9 % Normal [facility] Comment on above: Performed By: #### Siria RAMIREZ, 41903-7, CMP, 86896-3, 64242-1 #### [facility] ([id number]) [address] [place] [address] 96445 Platelet mean volume (Bld) [Entitic vol] 7.7 fL Normal 7-12 [facility] Comment on above: Performed By: #### C BCA, 70896-0, CMP, 43721-3, 40889-5 #### [facility] ([id number]) [address] [place] [address] 88878 Platelets (Bld) [#/Vol] 212 10*3/uL Normal 150-450 [facility] Comment on above: Performed By: #### Siria BCA, 53830-0, CMP, 28410-5, 75327-4 #### [facility] ([id number]) [address] [place] [address] 48150 RBC COUNT 3.62 X10E12/L Low 3.80-5.20 [facility] Comment on above: Performed By: #### C BCA, 78582-5, CMP, 96706-1, 42241-5 #### [facility] ([id number]) [address] [place] [address] 78638 WBC (Bld) [#/Vol] 6.4 10*3/uL Normal 4.0-11.0 [facility] Comment on above: Performed By: #### Siria BCA, 85450-9, CMP, 91387-6, 24654-7 #### [facility] ([id number]) [address] [place] [address] 53219 COMPREHENSIVE METABOLIC PANE Schuyler 06-12-2024 Albumin [Mass/Vol] 3.8 g/dL Normal 3.2-5.3 [facility] Comment on above: Performed By: #### Siria BCA, 07171-6, CMP, 61212-1, 86432-7 #### [facility] ([id number]) [address] [place] [address] 39643 ALP [Catalytic activity/Vol] 78 U/L Normal 39-130 [facility] Comment on above: Performed By: #### C BCA, 83512-7, CMP, 12718-2, 76003-7 #### [facility] ([id number]) [address] [place] [address] 83631 ALT [Catalytic activity/Vol] 30 U/L Normal 0-31 [facility] Comment on above: Performed By: #### C BCA, 36810-1, CMP, 33524-6, 01777-3 #### [facility] ([id number]) [address] [place] [address] 80272 Anion gap [Moles/Vol] 16 mmol/L High 5-15 [facility] Comment on above: Performed By: #### C BCA, 09066-4, CMP, 73813-4, 57076-1 #### [facility] ([id number]) [address] [place] [address] 57335 AST [Catalytic activity/Vol] 31 U/L Normal 0-41 [facility] Comment on above: Performed By: #### C BCA, 38497-8, CMP, 58424-7, 35729-7 #### [facility] ([id number]) [address] [place] [address] 89005 Bilirubin [Mass/Vol] 0.2 mg/dL Low 0.3-1.2 [facility] Comment on above: Performed By: #### C BCA, 47307-1, CMP, 46732-1, 08202-0 #### [facility] ([id number]) [address] [place] [address] 42239 Calcium [Mass/Vol] 9.0 mg/dL Normal 8.5-10.5 [facility] Comment on above: Performed By: #### C BCA, 33743-2, CMP, 77379-4, 49843-8 #### [facility] ([id number]) [address] [place] [address] 32154 Chloride [Moles/Vol] 103 mmol/L Normal 98-109 [facility] Comment on above: Performed By: #### C BCA, 43769-9, CMP, 40510-7, 74133-0 #### [facility] ([id number]) [address] [place] [address] 17969 CO2 [Moles/Vol] 15 mmol/L Low 22-32 [facility] Comment on above: Performed By: #### C BCA, 13126-9, CMP, 64687-6, 40349-1 #### [facility] ([id number]) [address] [place] [address] 00223 Creatinine [Mass/Vol] 0.92 mg/dL Normal 0.40-1.00 [facility] Comment on above: Result Comment: METH OD TRACEABLE TO IDMS STANDARD Performed By: #### C BCA, 23732-7, CMP, 47793-9, 37110-8 #### [facility] ([id number]) [address] [place] [address] 90030 GFR/1.73 sq M.predicted among non-blacks MDRD (S/P/Bld) [Vol rate/Area] 65 mL/min/{1.73_m2} Normal >59 [facility] Comment on above: Result Comment: Reported eGFR is based on the CKD-EPI 2021 equation that does not use a race coefficient. Performed By: #### C BCA, 08326-5, CMP, 69021-5, 09880-0 #### [facility] ([id number]) [address] [place] [address] 07153 Glucose [Mass/Vol] 362 mg/dL High 65-99 [facility] Comment on above: Performed By: #### C BCA, 22798-0, CMP, 66334-4, 62139-1 #### [facility] ([id number]) [address] [place] [address] 63564 Potassium [Moles/Vol] 3.7 mmol/L Normal 3.5-5.0 [facility] Comment on above: Performed By: #### C BCA, 26237-7, CMP, 16676-2, 76538-0 #### [facility] ([id number]) [address] [place] [address] 11672 Protein [Mass/Vol] 6.9 g/dL Normal 6.0-8.0 [facility] Comment on above: Performed By: #### C BCA, 36512-8, CMP, 28707-3, 81130-2 #### [facility] ([id number]) [address] [place] [address] 43401 Sodium [Moles/Vol] 134 mmol/L Normal 134-146 [facility] Comment on above: Performed By: #### C BCA, 61389-9, CMP, 27285-5, 80953-2 #### [facility] ([id number]) [address] [place] [address] 32561 Urea nitrogen [Mass/Vol] 22 mg/dL Normal 5-27 [facility] Comment on above: Performed By: #### C BCA, 82072-3, CMP, 53407-1, 04297-0 #### [facility] ([id number]) [address] [place] [address] 14109 Fibrin D-dimer DDU (PPP) [Ma ss/Vol]on 06-12-2024 D DIMER <150 Normal <255 [facility] Comment on above: Result Comment: Results <255 ng/mL DDU: The presence of a VTE can safely be excluded with a negative D-Dimer result and Wells score. A negative result doesn't exclude the possibility of DIC. The test be repeated along with other diagnostic tests if the patient's symptoms persist or worsen. [email or web address] Performed By: #### C JAMES, 28544-6, CMP, 65077-9, 44790-0 #### [facility] ([id number]) [address] [place] [address] 55069 Glucose Glucometer (BldC) [M ass/Vol]on 06-12-2024 Glucose [Mass/Vol] 327 mg/dL High 65-99 [facility] Natriuretic peptide B [Mass/ Vol]on 06-12-2024 Natriuretic peptide B (Bld) [Mass/Vol] 71 pg/mL Normal <100.0 [facility] Comment on above: Performed By: #### C JAMES, 39275-7, [facility], 79987-2, 88178-7 #### [facility] ([id number]) [address] [place] [address] 28122 Procalcitonin IA [Mass/Vol]o n 06-12-2024 PROCALCITONIN 0.05 ng/mL High <0.05 [facility] Comment on above: Result Comment: NOTE <0.50 ng/mL - Low risk of severe sepsis and/or septic shock. <2.00 ng/mL - Recommend retesting within 6-24 hours. >2.00 ng/mL - High risk of sepsis and/or septic shock. Performed By: #### 6 873-4, 96238-0, 66793-9 #### [facility] ([id number]) [address] [place] [address] 17575 Troponin I.cardiac High sens itivity method [Mass/Vol]on 06-12-2024 1 HOUR TROP I, HIGH SENSITIVITY 10 ng/L Normal <16 [facility] Comment on above: Performed By: #### 6 873-4, 93874-4, 27351-4 #### [facility] ([id number]) [address] [place] [address] 35266 TROPONIN I, HIGH SENSITIVITY 7 ng/L Normal <16 [facility] Comment on above: Performed By: #### C BCA, 33146-2, CMP, 69678-0, 83314-9 #### [facility] ([id number]) [address] [place] [address] 58385 VENOUS BLOOD GASon 4 GALI'S TEST Normal [facility] Comment on above: Performed By: #### V BG #### [facility] ([id number]) [address] [place] [address] 14400 BASE,DEFICIT 9.0 MMOL/L High 0.0-2.0 [facility] Comment on above: Performed By: #### V BG #### [facility] ([id number]) [address] [place] [address] 74548 Body temperature 98.6 [degF] Normal 37.0 [facility] Comment on above: Performed By: #### V BG #### [facility] ([id number]) [address] [place] [address] 02996 HCO3 (Bld) [Moles/Vol] 16.0 mmol/L Low 20.0-24.0 [facility] Comment on above: Performed By: #### V BG #### [facility] ([id number]) [address] [place] [address] 79725 Oxygen saturation in Blood 60.0 % Low >80.0 [facility] Comment on above: Performed By: #### V BG #### [facility] ([id number]) [address] [place] [address] 09076 OXYGEN SOURCE RoomAir Normal [facility] Comment on above: Performed By: #### V BG #### [facility] ([id number]) [address] [place] [address] 77983 PCO2, VENOUS 30.0 MMHG Low 35-50 [facility] Comment on above: Performed By: #### V BG #### [facility] ([id number]) [address] [place] [address] 37923 PH, VENOUS 7.334 Normal 7.320-7.420 [facility] Comment on above: Performed By: #### V BG #### [facility] ([id number]) [address] [place] [address] 98173 PO2, VENOUS 33 MMHG Normal 30-50 [facility] Comment on above: Performed By: #### V BG #### [facility] ([id number]) [address] [place] [address] 66069 SAMPLE SITE N/A Normal [facility] Comment on above: Performed By: #### V BG #### [facility] ([id number]) [address] [place] [address] 29984 SAMPLE TYPE VENOUS Normal [facility] Comment on above: Performed By: #### V BG #### [facility] ([id number]) [address] [place] [address] 85305 FLUORO FOR SURGICAL PROCEDUR ESon 03-22-2024 FLUORO FOR SURGICAL PROCEDURES Radiology result is complete; follow up with provider / physician office for radiology results Final result Normal [facility] Glucose,Whole Bloodon 2023 Glucose [Mass/Vol] 95 mg/dL Normal 65-105 [facility] FLUORO FOR SURGICAL PROCEDUR ESon 02-02-2024 FLUORO FOR SURGICAL PROCEDURES Radiology result is complete; follow up with provider / physician office for radiology results Final result Normal [facility] Glucose,Whole Bloodon 2023 Glucose [Mass/Vol] 88 mg/dL Normal 65-105 [facility] POC Glucose Fingerstickon Glucose [Mass/Vol] 88 mg/dL 65 - 105 mg/dL [facility] COVID + FLU Quick Testingon 12-28-2023 SARS-CoV-2 (COVID-19) RNA JAYY+probe Ql (Unsp spec) Negative [facility] Other COVID + FLU Quick Testing Negative [facility] Other FLUORO FOR SURGICAL PROCEDUR ESon 11-08-2023 FLUORO FOR SURGICAL PROCEDURES Radiology result is complete; follow up with provider / physician office for radiology results Final result Normal [facility] No Panel Informationon 05-14 [facility] XR LUMBAR 3V AP/LAT/L5-S1on 05-14-2023 XR [...] severe lumbar spine degenerative change as described. Stock Hanger: JENNIFER Transcribe Date/Time: May 14 2023 1:53P Dictated by : GABRIELA SANDERSON MD This examination was interpreted and the report reviewed and electronically signed by: GABRIELA SANDERSON MD on May 14 2023 1:54PM EST [id number] CN Normal [facility] XR PELVIS 1V APon 05-14-2023 XR PELVIS [...] bony erosions. IMPRESSION: Degenerative changes as described. Stock Hanger[facility] Transcribe Date/Time: May 14 2023 1:52P Dictated by : GABRIELA SANDERSON MD This examination was interpreted and the report reviewed and electronically signed by: GABRIELA SANDERSON MD on May 14 2023 1:53PM EST [id number] CN Normal [facility] C-REACTIVE PROTEIN (CRP)on 0 03-27-2023 CRP [Mass/Vol] <0.9 mg/dL [facility] ESR Westergren method (Bld) [Velocity]on 03-27-2023 ESR (Bld) [Velocity] 8 mm/h 0 - 20 mm/hr Cl [facility] POINT OF CARE GLUCOSEon - Glucose [Mass/Vol] 133 mg/dL Critically high 74-106 [facility] Comment on above: Performed By: #### P OCGLUC #### [facility] [address] [place] [address] Dr. Kris Castillo CBC with Auto Differentialon 12-02-2022 Absolute Eos # 0.20 [facility] Absolute Lymph # 2.10 [facility] Absolute Emanuel # 0.30 [facility] [employer] [facility] Basophils (Bld) [#/Vol] 0.00 10*3/uL [facility] Basophils/100 WBC (Bld) 1 % 0 - 2 % [facility] Eosinophils/100 WBC (Bld) 3 % 0 - 4 % [facility] Hematocrit (Bld) [Volume fraction] 33.7 % Low 36 - 46 % [facility] Hemoglobin (Bld) [Mass/Vol] 11.3 g/dL Low 12.0 - 16.0 g/dL [facility] Interpretation and review of laboratory results Abnormal [facility] Lymphocytes/100 WBC (Bld) 36 % 24 - 44 % [facility] MCH (RBC) [Entitic mass] 29.2 pg 26 - [address] [facility] MCHC (RBC) [Mass/Vol] 33.5 g/dL 31 - 37 g/dL [facility] MCV (RBC) [Entitic vol] 87.1 fL 80 - [address] [facility] Monocytes/100 WBC (Bld) 6 % 1 - 7 % [facility] Platelet distribution width (Bld) [Ratio] 15.9 % High 11.5 - 14.9 % [facility] Platelet mean volume (Bld) [Entitic vol] 7.5 fL 6.0 - 12.[address] [facility] Platelets (Bld) [#/Vol] 255 10*3/uL [facility] RBC (Bld) [#/Vol] 3.87 10*6/uL Low 4.0 - 5.2 m/uL [facility] Segmented neutrophils/100 WBC (Bld) 54 % 36 - 66 % [facility] Segs Absolute 3.[address] [facility] WBC (Bld) [#/Vol] 5.7 10*3/uL [facility] Comprehensive Metabolic Pane schuyler 12-02-2022 Albumin [Mass/Vol] 3.8 g/dL 3.5 - 5.2 g/dL [facility] ALP (Bld) [Catalytic activity/Vol] 79 U/L 35 - 104 U/L [facility] ALT [Catalytic activity/Vol] 14 U/L 5 - 33 U/L [facility] Anion gap [Moles/Vol] 10 mmol/L 9 - 17 mmol/L [facility] AST [Catalytic activity/Vol] 18 U/L NINF - 32 U/L [facility] Bilirubin [Mass/Vol] 0.5 mg/dL 0.3 - 1 .2 mg/dL [facility] Calcium [Mass/Vol] 9.6 mg/dL 8.6 - 10. 4 mg/dL [facility] Chloride [Moles/Vol] 105 mmol/L 98 - 10 7 mmol/L [facility] CO2 [Moles/Vol] 26 mmol/L 20 - 31 mmol/L [facility] Creatinine [Mass/Vol] 0.53 mg/dL 0.50 - 0.90 mg/dL [facility] GFR/1.73 sq M.predicted MDRD (S/P/Bld) [Vol rate/Area] - PINF [facility] Comment on above: Effective Aug 24, [...] 135 mg/dL High 70 - 99 mg/dL [facility] Interpretation and review of laboratory results Abnormal [facility] Potassium [Moles/Vol] 4.3 mmol/L 3.7 - 5.3 mmol/L [facility] Protein [Mass/Vol] 6.6 g/dL 6.4 - 8.3 g/dL [facility] Sodium [Moles/Vol] 141 mmol/L 135 - 144 mmol/L [facility] Urea nitrogen (BldV) [Mass/Vol] 14 mg/dL 8 - 23 mg/dL [facility] Folateon 12-02-2022 Folate 11 ng/mL 4.8 - PINF ng/mL [facility] Iron and TIBCon 12-02-2022 Iron [Mass/Vol] 81 ug/dL 37 - 145 ug/dL [facility] Iron Saturation 24 % 20 - 55 % [facility] TIBC 338 ug/dL 250 - 450 ug/dL [facility] UIBC 257 ug/dL 112 - 347 ug/dL [facility] Lipaseon 12-02-2022 Lipase [Catalytic activity/Vol] 16 U/L 13 - 60 U/L [facility] No Panel Informationon 12-02 [facility] Reticulocyteson 12-02-2022 Absolute Retic # 0.036 [facility] Retic % 0.9 % 0.5 - 2.0 % [facility] T4, Freeon 12-02-2022 Interpretation and review of laboratory results Abnormal [facility] Thyroxine, Free 1.95 ng/dL High 0.93 - 1.70 ng/dL [facility] TSH With Reflex Ft4on 2022 Interpretation and review of laboratory results Abnormal [facility] TSH Qn 0.08 m[IU]/L Low [facility] Vitamin B12on 12-02-2022 Cobalamin (Vitamin B12) [Mass/Vol] pg/mL High 232 - 1245 pg/mL [facility] Interpretation and review of laboratory results Abnormal [facility] XR WRIST RT MIN 3 Von [...] by: ALEX HUERTA Date: 2022-09-06 16:27 Normal [facility] LIPID PROFILEon 08-29-2022 CHOL-HDL RATIO NORM SEE BELOW Normal [facility] Comment on above: Result Comment: 3.3 - 4.4 LOW RISK 4.4 - 7.1 AVERAGE RISK 7.1 - 11.0 MODERATE RISK >11.0 HIGH RISK Performed By: #### C MREP #### [facility] [address] [address] [address] Kris Castillo Cholesterol [Mass/Vol] 157 mg/dL Normal <=200 [facility] Comment on above: Performed By: #### C MREP #### [facility] [address] [address] [address] Kris Castillo Cholesterol in HDL [Mass/Vol] 84 mg/dL Critically high 40-60 [facility] Comment on above: Performed By: #### C MREP #### [facility] [address] [place] [address] Dr. Kris Castillo Cholesterol in LDL [Mass/Vol] 62.4 mg/dL Normal [facility] Comment on above: Performed By: #### C MREP #### [facility] [address] [place] [address] Dr. Kris Castillo Cholesterol.total/Chol esterol in HDL [Mass ratio] 1.9 {ratio} Normal [facility] Comment on above: Performed By: #### C MREP #### [facility] [address] [place] [address] Dr. Kris Castillo HDL NORMAL > or = 60 mg/dl - LOW CARDIOVASCULAR RISK <40 mg/dl - HIGH CARDIOVASCULAR RISK Normal [facility] Comment on above: Performed By: #### C MREP #### [facility] [address] [place] [address] Dr. Kris Castillo LDL CALC NORMAL SEE BELOW Normal [facility] Comment on above: Result Comment: <100 mg/dl OPTIMAL 100 - 129 mg/dl NEAR OR ABOVE OPTIMAL 130 - 159 mg/dl BORDERLINE HIGH 160 - 189 mg/dl HIGH >190 mg/dl VERY HIGH Performed By: #### C MREP #### [facility] [address] [place] [address] Dr. Kris Castillo Triglyceride [Mass/Vol] 53 mg/dL Normal <=150 [facility] Comment on above: Performed By: #### C MREP #### [facility] [address] [place] [address] Dr. Kris Castillo VLDL CALC 10.6 mg/dL Normal [facility] Comment on above: Performed By: #### C MREP #### [facility] [address] [place] [address] Dr. Kris Castillo CARDIAC ROYA 3-6on 2 CK [Catalytic activity/Vol] 54 U/L Normal 26-192 [facility] Comment on above: Performed By: #### D DIM #### [facility] [address] [place] [address] Dr. Kris Castillo CK.MB [Mass/Vol] 1.12 ng/mL Normal <=3.60 [facility] Comment on above: Performed By: #### D DIM #### [facility] [address] [place] [address] Dr. Kris Castillo HSTROP 8.2 pg/mL Normal 4.0-51.3 [facility] Comment on above: Result Comment: CUT- OFF POINTS HAVE BEEN ESTABLISHED BASED ON THE FOURTH UNIVERSAL DEFINITIONS OF MYOCARDIAL INFARCTION. THE UPPER REFERENCE LIMIT (URL) OF TROPONIN, DEFINED THE 99TH PERCENTILE OF cTnI DISTRIBUTION IN A REFERENCE POPULATION, HAS BEEN CONFIRMED THE DECISION THRESHOLD FOR ID DIAGNOSIS. Performed By: #### D DIM #### [facility] [address] [place] [address] Dr. Kris Castillo CK [Catalytic activity/Vol] 57 U/L Normal 26-192 [facility] Comment on above: Performed By: #### C MREP #### [facility] [address] [place] [address] Dr. Kris Castillo CK.MB [Mass/Vol] 1.25 ng/mL Normal <=3.60 [facility] Comment on above: Performed By: #### C MREP #### [facility] [address] [place] [address] Dr. Kris Castillo HSTROP 7.3 pg/mL Normal 4.0-51.3 [facility] Comment on above: Result Comment: CUT- OFF POINTS HAVE BEEN ESTABLISHED BASED ON THE FOURTH UNIVERSAL DEFINITIONS OF MYOCARDIAL INFARCTION. THE UPPER REFERENCE LIMIT (URL) OF TROPONIN, DEFINED THE 99TH PERCENTILE OF cTnI DISTRIBUTION IN A REFERENCE POPULATION, HAS BEEN CONFIRMED THE DECISION THRESHOLD FOR ID DIAGNOSIS. Performed By: #### C MREP #### [facility] [address] [place] [address] Dr. Kris Castillo CARDIAC ROYA ADMITon 022 CK [Catalytic activity/Vol] 86 U/L Normal 26-192 [facility] Comment on above: Performed By: #### D DIM #### [facility] [address] [place] [address] Dr. Kris Castillo CK.MB [Mass/Vol] 1.65 ng/mL Normal <=3.60 [facility] Comment on above: Performed By: #### D DIM #### [facility] [address] [place] [address] Dr. Kris Castillo HSTROP 6.2 pg/mL Normal 4.0-51.3 [facility] Comment on above: Result Comment: CUT- OFF POINTS HAVE BEEN ESTABLISHED BASED ON THE FOURTH UNIVERSAL DEFINITIONS OF MYOCARDIAL INFARCTION. THE UPPER REFERENCE LIMIT (URL) OF TROPONIN, DEFINED THE 99TH PERCENTILE OF cTnI DISTRIBUTION IN A REFERENCE POPULATION, HAS BEEN CONFIRMED THE DECISION THRESHOLD FOR ID DIAGNOSIS. Performed By: #### D DIM #### [facility] [address] [place] [address] Dr. Kris Castillo RAMSES 34 ng/mL Normal 9-82 [facility] Comment on above: Performed By: #### D DIM #### [facility] [address] [place] [address] Dr. Kris Castillo CBC AUTO DIFFon 08-28-2022 BASO # 0.1 103/ul Normal 0.0-0.1 [facility] Comment on above: Performed By: #### C BC #### [facility] [address] [place] [address] Dr. Kris Castillo Basophils/100 WBC (Bld) 0.6 % Normal 0.2-2.0 [facility] Comment on above: Performed By: #### C BC #### [facility] [address] [place] [address] Dr. Kris Castillo EO # 0.3 103/ul Normal 0.0-0.7 [facility] Comment on above: Performed By: #### C BC #### [facility] [address] [place] [address] Dr. Kris Castillo Eosinophils/100 WBC (Bld) 3.8 % Normal 0.9-7.0 [facility] Comment on above: Performed By: #### C BC #### [facility] [address] [place] [address] Dr. Kris Castillo Erythrocyte distribution width (RBC) [Ratio] 16.2 % Critically high 11.0-15.0 [facility] Comment on above: Performed By: #### C BC #### [facility] [address] [place] [address] Dr. Kris Castillo Hematocrit (Bld) [Volume fraction] 34.7 % Critically low 36.0-48.0 [facility] Comment on above: Performed By: #### C BC #### [facility] [address] [place] [address] Dr. Kris Castillo Hemoglobin (Bld) [Mass/Vol] 10.8 g/dL Critically low 12.0-16.0 [facility] Comment on above: Performed By: #### C BC #### [facility] [address] [place] [address] Dr. Kris Castillo IG # 0.02 10e3/ul Normal 0.00-0.03 [facility] Comment on above: Performed By: #### C BC #### [facility] [address] [place] [address] Dr. Kris Castillo IG % 0.3 % Normal 0.0-0.5 [facility] Comment on above: Performed By: #### C BC #### [facility] [address] [place] [address] Dr. Kris Castillo LYMPH # 2.2 103/ul Normal 1.2-3.8 [facility] Comment on above: Performed By: #### C BC #### [facility] [address] [place] [address] Dr. Kris Castillo Lymphocytes/100 WBC (Bld) 27.9 % Normal 20.5-60.0 [facility] Comment on above: Performed By: #### C BC #### [facility] [address] [place] [address] Dr. Kris Castillo MANUAL DIFF REQ NO Normal [facility] Comment on above: Performed By: #### C BC #### [facility] [address] [place] [address] Dr. Kris Castillo MCH (RBC) [Entitic mass] 27.7 pg Normal 26.7-34.0 [facility] Comment on above: Performed By: #### C BC #### [facility] [address] [place] [address] Dr. Kris Castillo MCHC (RBC) [Mass/Vol] 31.1 g/dL Normal 29.9-35.2 [facility] Comment on above: Performed By: #### C BC #### [facility] [address] [place] [address] Dr. Kris Castillo MCV (RBC) [Entitic vol] 89.0 fL Normal 81.0-99.0 [facility] Comment on above: Performed By: #### C BC #### [facility] [address] [place] [address] Dr. Kris Castillo MONO # 0.6 103/ul Normal 0.3-0.8 [facility] Comment on above: Performed By: #### C BC #### [facility] [address] [place] [address] Dr. Kris Castillo Monocytes/100 WBC (Bld) 7.6 % Normal 1.7-12.0 [facility] Comment on above: Performed By: #### C BC #### [facility] [address] [place] [address] Dr. Kris Castillo NEUT # 4.7 103/ul Normal 1.4-6.5 [facility] Comment on above: Performed By: #### C BC #### [facility] [address] [place] [address] Dr. Kris Castillo Neutrophils/100 WBC (Bld) 59.8 % Normal 43.0-75.0 [facility] Comment on above: Performed By: #### C BC #### [facility] [address] [address] [address] Kris Castillo Platelet mean volume (Bld) [Entitic vol] 9.5 fL Normal 9.5-13.5 [facility] Comment on above: Performed By: #### C BC #### [facility] [address] [address] [address] Kris Castillo PLT 264 103/ul Normal 150-450 [facility] Comment on above: Performed By: #### C BC #### [facility] [address] [address] [address] Kris Castillo RBC 3.90 106/ul Critically low 4.20-5.40 [facility] Comment on above: Performed By: #### C BC #### [facility] [address] [address] [address] Kris Castillo WBC 7.9 103/ul Normal 4.0-11.0 [facility] Comment on above: Performed By: #### C BC #### [facility] [address] [address] [address] Kris Castillo Covid-19 PCR ([facility])on SARS-CoV-2 (COVID-19) RNA JAYY+probe Ql (Unsp spec) Not detected Normal NOT DETECTED [facility] Comment on above: Result Comment: When [...] for this test is supported by the [place] of Health and Human Service's declaration that [...] used). Performed By: #### C VDTBH #### [facility] [address] [place] [address] Dr. Kris Castillo D-DIMERon 08-28-2022 D-DIMER 0.48 mg/L FEU Normal <=0.59 [facility] Comment on above: Performed By: #### D DIM #### [facility] [address] [place] [address] Dr. Kris Castillo D-DIMER COMMENTS SEE BELOW Normal [facility] Comment on above: Result Comment: Incr [...] hospitalization. Performed By: #### D DIM #### [facility] [address] [place] [address] Dr. Kris Castillo LIPID PROFILEon 08-28-2022 CHOL-HDL RATIO NORM SEE BELOW Normal [facility] Comment on above: Result Comment: 3.3 - 4.4 LOW RISK 4.4 - 7.1 AVERAGE RISK 7.1 - 11.0 MODERATE RISK >11.0 HIGH RISK Performed By: #### D DIM #### [facility] [address] [place] [address] Dr. Kris Castillo Cholesterol [Mass/Vol] 151 mg/dL Normal <=200 [facility] Comment on above: Performed By: #### D DIM #### [facility] [address] [place] [address] Dr. Kris Castillo Cholesterol in HDL [Mass/Vol] 77 mg/dL Critically high 40-60 [facility] Comment on above: Performed By: #### D DIM #### [facility] [address] [place], [place] [id number] Dr. Kris Catsillo Cholesterol in LDL [Mass/Vol] 65.6 mg/dL Normal [facility] Comment on above: Performed By: #### D DIM #### [facility] [address] [address] [address] Kris Castillo Cholesterol.total/Chol esterol in HDL [Mass ratio] 2.0 {ratio} Normal [facility] Comment on above: Performed By: #### D DIM #### [facility] [address] [address] [address] Kris Castillo HDL NORMAL > or = 60 mg/dl - LOW CARDIOVASCULAR RISK <40 mg/dl - HIGH CARDIOVASCULAR RISK Normal [facility] Comment on above: Performed By: #### D DIM #### [facility] [address] [place] [address] Dr. Kris Castillo LDL CALC NORMAL SEE BELOW Normal [facility] Comment on above: Result Comment: <100 mg/dl OPTIMAL 100 - 129 mg/dl NEAR OR ABOVE OPTIMAL 130 - 159 mg/dl BORDERLINE HIGH 160 - 189 mg/dl HIGH >190 mg/dl VERY HIGH Performed By: #### D DIM #### [facility] [address] [place] [address] Dr. Kris Castillo Triglyceride [Mass/Vol] 42 mg/dL Normal <=150 [facility] Comment on above: Performed By: #### D DIM #### [facility] [address] [place] [address] Dr. Kris Castillo VLDL CALC 8.4 mg/dL Normal [facility] Comment on above: Performed By: #### D DIM #### [facility] [address] [place] [address] Dr. Kris Castillo POINT OF CARE GLUCOSEon 10-0 Glucose [Mass/Vol] 108 mg/dL Critically high 74-106 [facility] Comment on above: Performed By: #### D DIM #### [facility] [address] [place] [address] Dr. Kris Castillo PROF 14(COMP METB)on 022 Albumin [Mass/Vol] 3.4 g/dL Normal 3.4-5.0 [facility] Comment on above: Performed By: #### D DIM #### [facility] [address] [place] [address] Dr. Kris Castillo Albumin/Globulin [Mass ratio] 0.9 {ratio} Normal [facility] Comment on above: Performed By: #### D DIM #### [facility] [address] [place] [address] Dr. Kris Castillo ALP [Catalytic activity/Vol] 88 U/L Normal 46-116 [facility] Comment on above: Performed By: #### D DIM #### [facility] [address] [place] [address] Dr. Kris Castillo ALT [Catalytic activity/Vol] 16 U/L Normal 14-59 [facility] Comment on above: Performed By: #### D DIM #### [facility] [address] [place] [address] Dr. Kris Castillo Anion gap [Moles/Vol] 9.5 mmol/L Normal [facility] Comment on above: Performed By: #### D DIM #### [facility] [address] [place] [address] Dr. Kris Castillo AST [Catalytic activity/Vol] 18 U/L Normal 15-37 [facility] Comment on above: Performed By: #### D DIM #### [facility] [address] [place] [address] Dr. Kris Castillo Bilirubin [Mass/Vol] 0.5 mg/dL Normal 0.2-1.0 [facility] Comment on above: Performed By: #### D DIM #### [facility] [address] [place] [address] Dr. Kris Castillo Calcium [Mass/Vol] 9.7 mg/dL Normal 8.5-10.1 [facility] Comment on above: Performed By: #### D DIM #### [facility] [address] [place] [address] Dr. Kris Castillo Chloride [Moles/Vol] 103 mmol/L Normal 98-107 [facility] Comment on above: Performed By: #### D DIM #### [facility] [address] [place] [address] Dr. Kris Castillo CO2 [Moles/Vol] 28.4 mmol/L Normal 21.0-32.0 [facility] Comment on above: Performed By: #### D DIM #### [facility] [address] [address] [address] Kris Castillo Creatinine [Mass/Vol] 0.78 mg/dL Normal 0.55-1.02 [facility] Comment on above: Performed By: #### D DIM #### [facility] [address] [address] [address] Kris Castillo EGFR-AF MONTENEGRIN >60 Normal >=60 [facility] Comment on above: Performed By: #### D DIM #### [facility] [address] [place] [address] Dr. Kris Castillo EGFR-NON AF MONTENEGRIN >60 Normal >=60 [facility] Comment on above: Performed By: #### D DIM #### [facility] [address] [place] [address] Dr. Kris Castillo Globulin (S) [Mass/Vol] 3.6 g/dL Normal [facility] Comment on above: Performed By: #### D DIM #### [facility] [address] [place] [address] Dr. Kris Castillo Glucose [Mass/Vol] 111 mg/dL Critically high 74-106 [facility] Comment on above: Performed By: #### D DIM #### [facility] [address] [place] [address] Dr. Kris Castillo Potassium [Moles/Vol] 3.9 mmol/L Normal 3.5-5.1 [facility] Comment on above: Performed By: #### D DIM #### [facility] [address] [place] [address] Dr. Kris Castillo Protein [Mass/Vol] 7.0 g/dL Normal 6.4-8.2 [facility] Comment on above: Performed By: #### D DIM #### [facility] [address] [place] [address] Dr. Kris Castillo Sodium [Moles/Vol] 137 mmol/L Normal 136-145 [facility] Comment on above: Performed By: #### D DIM #### [facility] [address], [place] [address] Dr. Kris Castillo Urea nitrogen [Mass/Vol] 21.0 mg/dL Critically high 7.0-18.0 [facility] Comment on above: Performed By: #### D DIM #### [facility] [address], [place] [address] Dr. Kris Castillo Urea nitrogen/Creatinine [Mass ratio] 26.9 mg/mg Normal [facility] Comment on above: Performed By: #### D DIM #### [facility] [address], [place] [address] Dr. Kris Castillo XR CHEST 1 Von [...] by: GABRIELA MITTAL Date: 2022-08-28 02:26 Normal [facility] CULTURE URINEon 07-27-2022 CULTURE URINE Isolate [...] F Trimethoprim/Sulfame thoxazole >=320 R F Normal [facility] Comment on above: Performed By: #### D DIM #### [facility] [address] [place] [address] Dr. Kris Castillo ACETONE SERUMon 07-25-2022 ACETONE Negative Normal NEGATIVE [facility] Comment on above: Performed By: #### C MREP #### [facility] [address] [place] [address] Dr. Kris Castillo BNPon 07-25-2022 Natriuretic peptide B (Bld) [Mass/Vol] 111.0 pg/mL Normal <=900.0 [facility] Comment on above: Performed By: #### C MREP #### [facility] [address] [place] [address] Dr. Kris Castillo CARDIAC ROYA ADMITon 022 CK [Catalytic activity/Vol] 61 U/L Normal 26-192 [facility] Comment on above: Performed By: #### C MREP #### [facility] [address] [place] [address] Dr. Kris Castillo CK.MB [Mass/Vol] 1.55 ng/mL Normal <=3.60 [facility] Comment on above: Performed By: #### C MREP #### [facility] [address] [place] [address] Dr. Kris Castillo HSTROP 7.1 pg/mL Normal 4.0-51.3 [facility] Comment on above: Result Comment: CUT- OFF POINTS HAVE BEEN ESTABLISHED BASED ON THE FOURTH UNIVERSAL DEFINITIONS OF MYOCARDIAL INFARCTION. THE UPPER REFERENCE LIMIT (URL) OF TROPONIN, DEFINED THE 99TH PERCENTILE OF cTnI DISTRIBUTION IN A REFERENCE POPULATION, HAS BEEN CONFIRMED THE DECISION THRESHOLD FOR ID DIAGNOSIS. Performed By: #### C MREP #### [facility] [address] [place] [address] Dr. Kris Castillo RAMSES 29 ng/mL Normal 9-82 [facility] Comment on above: Performed By: #### C MREP #### [facility] [address] [place] [address] Dr. Kris Castillo CBC AUTO DIFFon 07-25-2022 BASO # 0.1 103/ul Normal 0.0-0.1 [facility] Comment on above: Performed By: #### C BC #### [facility] [address] [place] [address] Dr. Kris Castillo Basophils/100 WBC (Bld) 0.6 % Normal 0.2-2.0 [facility] Comment on above: Performed By: #### C BC #### [facility] [address] [place] [address] Dr. Kris Castillo EO # 0.2 103/ul Normal 0.0-0.7 [facility] Comment on above: Performed By: #### C BC #### [facility] [address] [place] [address] Dr. Kris Castillo Eosinophils/100 WBC (Bld) 2.6 % Normal 0.9-7.0 [facility] Comment on above: Performed By: #### C BC #### [facility] [address] [place] [address] Dr. Kris Castillo Erythrocyte distribution width (RBC) [Ratio] 17.4 % Critically high 11.0-15.0 [facility] Comment on above: Performed By: #### C BC #### [facility] [address] [place] [address] Dr. Kris Castillo Hematocrit (Bld) [Volume fraction] 34.5 % Critically low 36.0-48.0 [facility] Comment on above: Performed By: #### C BC #### [facility] [address] [place] [address] Dr. Kris Castillo Hemoglobin (Bld) [Mass/Vol] 11.0 g/dL Critically low 12.0-16.0 [facility] Comment on above: Performed By: #### C BC #### [facility] [address] [place] [address] Dr. Kris Castillo IG # 0.03 10e3/ul Normal 0.00-0.03 [facility] Comment on above: Performed By: #### C BC #### [facility] [address] [place] [address] Dr. Kris Castillo IG % 0.3 % Normal 0.0-0.5 [facility] Comment on above: Performed By: #### C BC #### [facility] [address] [place] [address] Dr. Kris Castillo LYMPH # 2.0 103/ul Normal 1.2-3.8 [facility] Comment on above: Performed By: #### C BC #### [facility] [address] [place] [address] Dr. Kris Castillo Lymphocytes/100 WBC (Bld) 21.8 % Normal 20.5-60.0 [facility] Comment on above: Performed By: #### C BC #### [facility] [address] [place] [address] Dr. Kris Castillo MANUAL DIFF REQ NO Normal [facility] Comment on above: Performed By: #### C BC #### [facility] [address] [place] [address] Dr. Kris Castillo MCH (RBC) [Entitic mass] 27.8 pg Normal 26.7-34.0 [facility] Comment on above: Performed By: #### C BC #### [facility] [address] [place] [address] Dr. Kris Castillo MCHC (RBC) [Mass/Vol] 31.9 g/dL Normal 29.9-35.2 [facility] Comment on above: Performed By: #### C BC #### [facility] [address] [place] [address] Dr. Kris Castillo MCV (RBC) [Entitic vol] 87.3 fL Normal 81.0-99.0 [facility] Comment on above: Performed By: #### C BC #### [facility] [address] [place] [address] Dr. Kris Castillo MONO # 0.5 103/ul Normal 0.3-0.8 [facility] Comment on above: Performed By: #### C BC #### [facility] [address] [place] [address] Dr. Kris Castillo Monocytes/100 WBC (Bld) 5.9 % Normal 1.7-12.0 [facility] Comment on above: Performed By: #### C BC #### [facility] [address] [place] [address] Dr. Kris Castillo NEUT # 6.2 103/ul Normal 1.4-6.5 [facility] Comment on above: Performed By: #### C BC #### [facility] [address] [place] [address] Dr. Kris Castillo Neutrophils/100 WBC (Bld) 68.8 % Normal 43.0-75.0 [facility] Comment on above: Performed By: #### C BC #### [facility] [address] [place] [address] Dr. Kris Castillo Platelet mean volume (Bld) [Entitic vol] 9.5 fL Normal 9.5-13.5 [facility] Comment on above: Performed By: #### C BC #### [facility] [address] [place] [address] Dr. Kris Castillo PLT 231 103/ul Normal 150-450 [facility] Comment on above: Performed By: #### C BC #### [facility] [address] [place] [address] Dr. Kris Castillo RBC 3.95 106/ul Critically low 4.20-5.40 [facility] Comment on above: Performed By: #### C BC #### [facility] [address] [place] [address] Dr. Kris Castillo WBC 9.0 103/ul Normal 4.0-11.0 [facility] Comment on above: Performed By: #### C BC #### [facility] [address] [place] [address] HEAD WO CONon [...] ears demonstrate no substantial mucosal disease. Bilateral ekuk ocular lens replacement.Nonspeci fic calcifications are present [...] ASTRID RODRIGUEZ Date: 2022-07-25 12:48 Normal [facility] URINE PROFILEon 2 Bilirubin Ql (U) Negative Normal NEGATIVE [facility] Comment on above: Performed By: #### U MICRO, ERUR #### [facility] [address] [place] [address] Dr. Kris Castillo Clarity (U) CLEAR Normal CLEAR [facility] Comment on above: Performed By: #### U MICRO, ERUR #### [facility] [address] [place] [address] Dr. Kris Castillo Color (U) LT. YELLOW Normal YELLOW [facility] Comment on above: Performed By: #### U MICRO, ERUR #### [facility] [address] [place] [address] Dr. Kris Castillo ERUAHD A micrscopic examination will be performed if indicated. Normal [facility] Comment on above: Performed By: #### U MICRO, ERUR #### [facility] [address] [place] [address] Dr. Kris Castillo Glucose Ql (U) Negative Normal NEGATIVE [facility] Comment on above: Performed By: #### U MICRO, ERUR #### [facility] [address] [place] [address] Dr. Kris Castillo Hemoglobin Ql (U) Negative Normal NEGATIVE [facility] Comment on above: Performed By: #### U MICRO, ERUR #### [facility] [address] [place] [address] Dr. Kris Castillo Ketones Ql (U) Negative Normal NEGATIVE [facility] Comment on above: Performed By: #### U MICRO, ERUR #### [facility] [address] [place] [address] Dr. Kris Castillo LEUKOCYTES SMALL Abnormal NEGATIVE [facility] Comment on above: Performed By: #### U MICRO, ERUR #### [facility] [address] [address] [address] Kris Castillo Nitrite Ql (U) Negative Normal NEGATIVE [facility] Comment on above: Performed By: #### U MICRO, ERUR #### [facility] [address] [place] [address] Dr. Kris Castillo pH (U) 6.0 [pH] Normal 5-9 [facility] Comment on above: Performed By: #### U MICRO, ERUR #### [facility] [address] [place] [address] Dr. Kris Castillo SPEC GRAVITY <=1.005 Abnormal 1.005-<=1.02 5 [facility] Comment on above: Performed By: #### U MICRO, ERUR #### [facility] [address] [place] [address] Dr. Kris Castillo UA PROTEIN Negative Normal NEGATIVE/ TRACE [facility] Comment on above: Performed By: #### U MICRO, ERUR #### [facility] [address] [place] [address] Dr. Kris Castillo UR MICRO IND INDICATED Normal [facility] Comment on above: Performed By: #### U MICRO, ERUR #### [facility] [address] [place] [address] Dr. Kris Castillo Urobilinogen Qn (U) 0.2 {Yaritza'U}/dL Normal 0.2 - 1. 0 [facility] Comment on above: Performed By: #### U MICRO, ERUR #### [facility] [address] [address] [address] Kris Castillo PH VENOUS BLOODon 07-25-2022 PCO2 VENOUS 49.1 mmHg Normal 40.0-52.0 [facility] Comment on above: Performed By: #### P T, PTT #### [facility] [address] [address] [address] Kris Castillo pH VENOUS 7.320 Critically low 7.330-7.430 [facility] Comment on above: Performed By: #### P T, PTT #### [facility] [address] [place] [address] Dr. Kris Castillo PROF 14(COMP METB)on 022 Albumin [Mass/Vol] 3.5 g/dL Normal 3.4-5.0 [facility] Comment on above: Performed By: #### C MREP #### [facility] [address] [place] [address] Dr. Kris Castillo Albumin/Globulin [Mass ratio] 1.0 {ratio} Normal [facility] Comment on above: Performed By: #### C MREP #### [facility] [address] [place] [address] Dr. Kris Castillo ALP [Catalytic activity/Vol] 82 U/L Normal 46-116 [facility] Comment on above: Performed By: #### C MREP #### [facility] [address] [place] [address] Dr. Kris Castillo ALT [Catalytic activity/Vol] 18 U/L Normal 14-59 [facility] Comment on above: Performed By: #### C MREP #### [facility] [address] [place] [address] Dr. Kris Castillo Anion gap [Moles/Vol] 15.9 mmol/L Normal [facility] Comment on above: Performed By: #### C MREP #### [facility] [address] [place] [address] Dr. Kris Castillo AST [Catalytic activity/Vol] 14 U/L Critically low 15-37 [facility] Comment on above: Performed By: #### C MREP #### [facility] [address] [address] [address] Kris Castillo Bilirubin [Mass/Vol] 0.4 mg/dL Normal 0.2-1.0 [facility] Comment on above: Performed By: #### C MREP #### [facility] [address] [address] [address] Kris Castillo Calcium [Mass/Vol] 8.6 mg/dL Normal 8.5-10.1 [facility] Comment on above: Performed By: #### C MREP #### [facility] [address] [address] [address] Kris Castillo Chloride [Moles/Vol] 102 mmol/L Normal 98-107 [facility] Comment on above: Performed By: #### C MREP #### [facility] [address] [place] [address] Dr. Kris Castillo CO2 [Moles/Vol] 22.7 mmol/L Normal 21.0-32.0 [facility] Comment on above: Performed By: #### C MREP #### [facility] [address] [place] [address] Dr. Kris Castillo Creatinine [Mass/Vol] 0.63 mg/dL Normal 0.55-1.02 [facility] Comment on above: Performed By: #### C MREP #### [facility] [address] [place] [address] Dr. Kris Castillo EGFR-AF MONTENEGRIN >60 Normal >=60 [facility] Comment on above: Performed By: #### C MREP #### [facility] [address] [place] [address] Dr. Kris Castillo EGFR-NON AF MONTENEGRIN >60 Normal >=60 [facility] Comment on above: Performed By: #### C MREP #### [facility] [address] [place] [address] Dr. Kris Castillo Globulin (S) [Mass/Vol] 3.4 g/dL Normal [facility] Comment on above: Performed By: #### C MREP #### [facility] [address] [address] [address] Kris Castillo Glucose [Mass/Vol] 92 mg/dL Normal 74-106 [facility] Comment on above: Performed By: #### C MREP #### [facility] [address] [address] [address] Kris Castillo Potassium [Moles/Vol] 3.6 mmol/L Normal 3.5-5.1 [facility] Comment on above: Performed By: #### C MREP #### [facility] [address] [address] [address] Kris Castillo Protein [Mass/Vol] 6.9 g/dL Normal 6.4-8.2 [facility] Comment on above: Performed By: #### C MREP #### [facility] [address] [address] [address] Kris Castillo Sodium [Moles/Vol] 137 mmol/L Normal 136-145 [facility] Comment on above: Performed By: #### C MREP #### [facility] [address] [address] [address] Kris Castillo Urea nitrogen [Mass/Vol] 24.0 mg/dL Critically high 7.0-18.0 [facility] Comment on above: Performed By: #### C MREP #### [facility] [address] [address] [address] Kris Castillo Urea nitrogen/Creatinine [Mass ratio] 38.1 mg/mg Normal [facility] Comment on above: Performed By: #### C MREP #### [facility] [address] [address] [address] Kris Castillo PROTIMEon 07-25-2022 INR Coag (PPP) [Relative time] 1.01 {INR} Normal [facility] Comment on above: Performed By: #### P T, PTT #### [facility] [address] [address] [address] Kris Castillo INR GUIDELINES SEE BELOW Normal [facility] Comment on above: Result Comment: ISAAC RED INR: 2.0 - 3.0 CONDITIONS NOT LISTED BELOW 2.5 - 3.5 FOR PROSTHETIC HEART VALVE REPLACEMENT 2.5 - 3.5 RECURRENT THROMBOSIS Performed By: #### P T, PTT #### [facility] [address] [place] [address] Dr. Kris Castillo PT Coag (PPP) [Time] 10.9 s Normal 9.0-11.6 [facility] Comment on above: Performed By: #### P T, PTT #### [facility] [address] [place] [address] Dr. Kris Castillo PTTon 07-25-2022 aPTT Coag (Bld) [Time] 27.6 s Normal 22.3-36.2 [facility] Comment on above: Performed By: #### P T, PTT #### [facility] [address] [place] [address] Dr. Kris Castillo SARS-CoV-2 (COVID-19) RNA NA A+probe Ql (Resp)on 07-25-2022 SARS-CoV-2 (COVID-19) RNA JAYY+probe Ql (Unsp spec) Negative [facility] Other URINE MICROSCOPIC ONLYon BACTERIA MODERATE Abnormal NONE SEEN [facility] Comment on above: Performed By: #### U MICRO, ERUR #### [facility] [address] [place] [address] Dr. Kris Castillo Bacteria identified Cx Nom (U) INDICATED Normal [facility] Comment on above: Performed By: #### U MICRO, ERUR #### [facility] [address] [place] [address] Dr. Kris Castillo CAST NONE SEEN Normal NONE SEEN [facility] Comment on above: Performed By: #### U MICRO, ERUR #### [facility] [address] [place] [address] Dr. Kris Castillo Crystals LM Nom (Urine sed) NONE SEEN Normal NONE SEEN [facility] Comment on above: Performed By: #### U MICRO, ERUR #### [facility] [address] [place] [address] Dr. Kris Castillo Epithelial cells LM Ql (Urine sed) FEW Abnormal NONE SEEN /RARE [facility] Comment on above: Performed By: #### U MICRO, ERUR #### [facility] [address] [address] [address] Kris Castillo MUCOUS NONE SEEN Normal NONE SEEN [facility] Comment on above: Performed By: #### U MICRO, ERUR #### [facility] [address] [address] [address] Kris Castillo RBC 0-2 Normal 0-2 [facility] Comment on above: Performed By: #### U MICRO, ERUR #### [facility] [address] [address] [address] Kris Castillo WBC 2-5 Abnormal NONE SEEN [facility] Comment on above: Performed By: #### U MICRO, ERUR #### [facility] [address] [address] [address] Kris Castillo XR CHEST 1 Von [...] by: BILL JONES Date: 2022-07-25 12:52 Normal [facility] CBC Auto Differentialon 05-1 Absolute Eos # 0.00 [facility] th Absolute Lymph # 1.40 [facility] Absolute Emanuel # 0.30 [facility] Basophils (Bld) [#/Vol] 0.10 10*3/uL [facility] Basophils/100 WBC (Bld) 1 % 0 - 2 % [facility] Eosinophils/100 WBC (Bld) 0 % 0 - 4 % [facility] Hematocrit (Bld) [Volume fraction] 35.2 % Low 36 - 46 % [facility] Hemoglobin.gastrointes tinal spec 1 Ql (Stl) 11.2 g/dL Low 12.0 - 16.0 g/dL [facility] Interpretation and review of laboratory results Abnormal [facility] Lymphocytes/100 WBC (Bld) 14 % Low 24 - 44 % [facility] MCH (RBC) [Entitic mass] 27.7 pg 26 - 34 pg [facility] MCHC (RBC) [Mass/Vol] 31.9 g/dL 31 - 37 g/dL M [facility] MCV (RBC) [Entitic vol] 86.8 fL 80 - 100 fL [facility] Monocytes/100 WBC (Bld) 3 % 1 - 7 % [facility] Platelet distribution width (Bld) [Ratio] 16.5 % High 11.5 - 14.9 % [facility] Platelet mean volume (Bld) [Entitic vol] 6.8 fL 6.0 - 12.0 fL [facility] Platelets (Bld) [#/Vol] 290 10*3/uL [facility] RBC (Bld) [#/Vol] 4.06 10*6/uL 4.0 - 5.2 m/uL [facility] Segmented neutrophils/100 WBC (Bld) 82 % High 36 - 66 % [facility] [#/Vol] 10.3 10*3/uL [facility] CBC with Auto Differentialon 04-07-2022 Absolute Eos # 0.00 [facility] th Absolute Lymph # 1.40 [facility] alth Absolute [facility]manuel [facility].30 [facility] Basophils (Bld) [#/Vol] 0.10 10*3/uL [facility] Basophils/100 WBC (Bld) 1 % 0 - 2 % [facility] Eosinophils/100 WBC (Bld) 0 % 0 - 4 % [facility] Hematocrit (Bld) [Volume fraction] 35.2 % Low 36 - 46 % [facility] Hemoglobin.gastrointes tinal spec 1 Ql (Stl) 11.2 g/dL Low 12.0 - 16.0 g/dL [facility] Interpretation and review of laboratory results Abnormal [facility] Lymphocytes/100 WBC (Bld) 14 % Low 24 - 44 % [facility] MCH (RBC) [Entitic mass] 27.7 pg 26 - 34 pg [facility] MCHC (RBC) [Mass/Vol] 31.9 g/dL 31 - 37 g/dL M [facility] MCV (RBC) [Entitic vol] 86.8 fL 80 - 100 fL [facility] Monocytes/100 WBC (Bld) 3 % 1 - 7 % [facility] Platelet distribution width (Bld) [Ratio] 16.5 % High 11.5 - 14.9 % [facility] Platelet mean volume (Bld) [Entitic vol] 6.8 fL 6.0 - 12.0 fL [facility] Platelets (Bld) [#/Vol] 290 10*3/uL [facility] RBC (Bld) [#/Vol] 4.06 10*6/uL 4.0 - 5.2 m/uL [facility] Segmented neutrophils/100 WBC (Bld) 82 % High 36 - 66 % [facility] Segs Absolute [facility]Vol[facility] 10.3 10*3/uL [facility] Iron And TIBCon 04-07-2022 Interpretation and review of laboratory results Abnormal [facility] Iron [Mass/Vol] 34 ug/dL Low 37 - 145 ug/dL [facility] Iron Saturation 8 % Low 20 - 55 % [facility] 413 ug/dL 250 - 450 ug/dL [facility] UIBC 379 ug/dL High 112 - 347 ug/dL [facility] COVID Quick Testingon 2021 Result Negative [facility] Other Quick Fluon 04-06-2022 FLUAV Ab CF (S) [Titer] Negative [facility] Other FLUBV Ab CF (S) [Titer] Negative [facility] Other Laboratory - Microbiology an d Antimicrobial susceptibilityon 09-17-2021 SARS-CoV-2 (COVID-19) RNA JAYY+probe Ql (Unsp spec) [address] Work Phone: No Panel Informationon 09-17 18\S\18 Normal 9-[address] Work Phone: 27.4\S\27.4 Normal 25.1-36.[address] Work Phone: Comment on above: PERFORMED BY:[facility] [place] [id number] MEDICAL DIRECTORKIA MORE M.D. 1.1\S\1.1 Normal [facility] [address] [place] Work Phone: Comment on above: [...] valves: 3 - 4.5 12.5\S\12.5 Normal 9.0-12.9 [facility] [place] Work Phone: 24.9\S\24.9 Normal 22.0-30.0 [facility] [place] Work Phone: 106\S\106 Normal 95-114 [facility] [address] [place] Work Phone: 3.8\S\3.8 Normal 3.5-5.1 [facility] [address] [place] Work Phone: 140\S\140 Normal 136-146 [facility] [address] [place] Work Phone: [facility] [address] [place] Work Phone: > 60 Normal [facility] [address] [place] Work Phone: Comment on above: GFR estimated refere pae range: According to KDOQI guidelines, <60 ml/min/1.73m2 is sufficient to diagnose a patient with chronic kidney disease.PERFORMED BY:[facility] [place], [place] [id number] MEDICAL DIRECTORKIA MORE M.D. 0.57\S\0.57 Normal 0.44-1.03 [facility] [address] [place] Work Phone: 46.1\S\46.1 Normal . -[facility] [address] [place] Work Phone: 7.2\S\7.2 Normal . -[facility] [address] [place] Work Phone: 267\S\267 Normal 150-450 -[facility] [address] [place] Work Phone: 20.2\S\20.2 above high threshold 11.9-15.3 -[facility] [place] Work Phone: 30.4\S\30.4 below low threshold 32.0-35.0 -[facility] [address] [place] Work Phone: 20.9\S\20.9 below low threshold 24.7-34.3 -[facility] [address] [place] Work Phone: 2.1\S\2.1 Normal 1.8-7.7 -[facility] [address] [place] Work Phone: 0.0\S\0.0 Normal 0-0.5 -[facility] [address] [place] Work Phone: 1.9\S\1.9 Normal 1.00-4.8 -[facility] [address] [place] Work Phone: 4.5\S\4.5 Normal . -[facility] [place] Work Phone: 40.3\S\40.3 Normal . -[facility] [address] [place] Work Phone: Moderate Normal -[facility] [address] [place] Work Phone: 0.1\S\0.1 Normal 0.0-0.2 -[facility] [address] [place] Work Phone: 0.2\S\0.2 Normal 0.0-0.45 [facility] [place] Work Phone: 0.3\S\0.3 Normal 0.0-0.8 [facility] [address] [place] Work Phone: Normal Normal Normal [facility] [address] [place] Work Phone: Comment on above: PERFORMED BY:[place] [address] [address] [place], [place] [id number] MEDICAL DIRECTORKIA MORE M.D. Slight Normal [facility] [address] [place] Work Phone: 68.8\S\68.8 below low threshold 80-100 [facility] [place] Work Phone: 26.3\S\26.3 below low threshold 34.0-46.4 [facility] [address] [place] Work Phone: 8.0\S\8.0 below low threshold 11.8-15.4 [facility] [address] [place] Work Phone: 3.82\S\3.82 Normal 3.60-5.00 [facility] [address] [place] Work Phone: 4.6\S\4.6 Normal 3.8-11.6 [facility] [address] [place] Work Phone: [facility] [address] [place] Work Phone: Laboratory - Chemistry and C hemistry - challengeon 09-09-2021 Cholesterol [Mass/Vol] 164\S\164 Normal 140-200 [facility] [address] [place] Work Phone: Comment on above: Chol less than 200 m g/dl low risk Chol 201-239 mg/dl borderline risk Chol 240 mg/dl and greater high risk Cholesterol in LDL [Mass/Vol] 90\S\90 Normal 0-100 [facility] [address] [place] Work Phone: Comment on above: LDL ATP III CLASSIFI CATION LDL less than 100 mg/dL Optimal LDL 100-129 mg/dL Near or above optimal LDL 130-159 mg/dL Borderline high LDL 160-189 mg/dL High LDL greater than 189 mg/dL Very high Laboratory - Microbiology an d Antimicrobial susceptibilityon 09-09-2021 SARS-CoV-2 (COVID-19) RNA JAYY+probe Ql (Unsp spec) [address] Work Phone: No Panel Informationon 09-09 29.7\S\29.7 Normal 25.1-36.[address] Work Phone: Comment on above: PERFORMED BY:[place] [address] [address] [place], [place] [id number] MEDICAL DIRECTORKIA MORE M.D. 1.2\S\1.[address] Work Phone: Comment on above: INR [...] 4.5 13.3\S\13.3 above high threshold 9.0-12.[address] Work Phone: 24.8\S\24.8 Normal 22.0-30.[address] [place] Work Phone: 106\S\106 Normal 95-[address] Work Phone: 4.0\S\4.0 Normal 3.5-5.[address] Work Phone: 140\S\140 Normal 136-146 -[facility] [address] [place] Work Phone: Slight Normal -[facility] [place] Work Phone: Comment on above: PERFORMED BY:[facility] [place], [place] [id number] MEDICAL DIRECTORKIA MORE M.D. Normal Normal Normal [facility] [address] [place] Work Phone: Moderate Normal [facility] [address] [place] Work Phone: 0.1\S\0.1 Normal 0.0-0.2 -[facility] [place] Work Phone: 0.3\S\0.3 Normal 0.0-0.45 [facility] [place] Work Phone: 0.4\S\0.4 Normal 0.0-0.8 [facility] [address] [place] Work Phone: 2.1\S\2.1 Normal 1.00-4.8 [facility] [address] [place] Work Phone: 2.6\S\2.6 Normal 1.8-7.7 [facility] [address] [place] Work Phone: Comment on above: PERFORMED BY:[facility] [place], [place] [phone] MEDICAL DIRECTORKIA MORE M.D. 0.0\S\0.0 Normal 0-0.5 -[facility] [address] [place] Work Phone: 1.1\S\1.1 Normal . [facility] [address] [place] Work Phone: 5.3\S\5.3 Normal . [facility] [address] [place] Work Phone: 7.2\S\7.2 Normal . -[facility] [place] Work Phone: 39.2\S\39.2 Normal . -[facility] [place] Work Phone: 47.2\S\47.2 Normal . -[facility] [place] Work Phone: 6.8\S\6.8 Normal 6.3-10.7 -[facility] [address] [place] Work Phone: 332\S\332 Normal 150-450 -[facility] [address] [place] Work Phone: 20.1\S\20.1 above high threshold 11.9-15.3 -[facility] [address] [place] Work Phone: 29.8\S\29.8 below low threshold 32.0-35.0 -[facility] [place] Work Phone: 20.7\S\20.7 below low threshold 24.7-34.3 -[facility] [address] [place] Work Phone: 69.2\S\69.2 below low threshold 80-100 -[facility] [address] [place] Work Phone: 27.8\S\27.8 below low threshold 34.0-46.4 -[facility] [address] [place] Work Phone: 8.3\S\8.3 below low threshold 11.8-15.4 -[facility] [place] Work Phone: 4.01\S\4.01 Normal 3.60-5.00 -[facility] [address] [place] Work Phone: 5.5\S\5.5 Normal 3.8-11.6 -[facility] [address] [place] Work Phone: 11\S\11 Normal [facility] [place] Work Phone: 57\S\57 Normal 35-149 [facility] [employer] Work Phone: Comment on above: TRIG ATP III CLASSIF ICATION TRIG less than 150 mg/dL Normal TRIG 150-199 mg/dL Borderline high TRIG 200-500 mg/dL High TRIG greater than 500 mg/dL Very high Standard traceable to the Center for Disease Conrtrol and Prevention (CDC) test method. 63\S\63 Normal 35-85 [facility] Work Phone: Comment on above: HDL CHOL ATP-III CLA SSIFICATION Cardiovascular Risk HDL > or equal to 60 mg/dL LOW HDL < 40 mg/dL HIGH > 60 Normal [facility] Work Phone: Comment on above: GFR estimated refere nce range: According to KDOQI guidelines, <60 ml/min/1.73m2 is sufficient to diagnose a patient with chronic kidney disease. 0.56\S\0.56 Normal 0.44-1.03 [facility] Work Phone: 19\S\19 Normal 9-23 [facility] Work Phone: [facility] Work Phone: [facility] Work Phone: Office Visit (Cardiology)on 09-02-2021 Follow-up [...] Evaluation and Treatment Evaluate AND Treat [facility] diagnostic staff to initiate [facility] preop orders for left cardiac cath Status: [...] All medical record entries made by the Solitarioibandreas were at my direction and personally dictated [...] a history of prior heart catheterization in [place] remotely that revealed normal coronary arteries. I [...] 2 SPRAYS IN EACH NOSTRIL ONCE DAILY Agqszr2X AT NIGHT Pantoprazole Sodium 40 MG Oral [...] illicit tres (more content not included)... Normal [employer] Tobacco Screening.on 021 Fall risk assessment a) No falls within the last year [facility] [address] [place] Work Phone: Tobacco use status CPHS b) No [facility] DO Work Phone: POC Glucose Fingerstickon Glucose [Mass/Vol] 101 mg/dL 65 - 105 mg/dL [facility] Phone: Glucose [Mass/Vol] 121 mg/dL High 65 - 105 mg/dL [facility] Phone: Interpretation and review of laboratory results Abnormal [facility] Phone: Folateon 03-03-2021 Folate 6.6 ng/mL >4.8 [facility] Phone: Iron and TIBCon 03-03-2021 Interpretation and review of laboratory results Abnormal [facility] Phone: Iron [Mass/Vol] 15 ug/dL Low 37 - 145 ug/dL [facility] Phone: Iron Saturation 4 % Low 20 - 55 % [facility] Work Phone: TIBC 390 ug/dL 250 - 450 ug/dL [facility] Phone: UIBC 375 ug/dL High 112 - 347 ug/dL [facility] Phone: Reticulocyteson 03-03-2021 Absolute Retic # 0.049 [facility] Work Phone: Immature Retic Fract NOT REPORTED % [facility] [employer] Work Phone: Retic % 1.3 % 0.5 - 2.0 % [facility] Phone: Retic Hemoglobin NOT REPORTED 28.2 - 35.7 pg [facility] Phone: Vitamin B12on 03-03-2021 Cobalamin (Vitamin B12) [Mass/Vol] pg/mL High 232 - 1245 pg/mL [facility] Phone: Interpretation and review of laboratory results Abnormal [facility] Phone: Vital Signs Date Time Vital Sign Value Performing Clinician Facility 12-28-2023 12:00-0500 Body height 149.86 cm Tayla Torres Other [facility] Other 12-28-2023 12:00-0500 Body mass index (BMI) [Ratio] 35.95 kg/m2 Tayla Torres Other [facility] Other 12-28-2023 12:00-0500 Body temperature 98.1 [degF] Tayla Torres Other [facility] Other 12-28-2023 12:00-0500 Body weight 80.74 kg Tayla Torres Other [facility] Other 12-28-2023 12:00-0500 Respiratory rate 18 /min Tayla Torres Other [facility] Other 12-28-2023 12:00-0500 SaO2% (BldA) [Mass fraction] 97 % Tayla Torres Other [facility] Other 05-14-2023 12:05-0400 Body height 152.4 cm Concepcion Teresa DO Work Phone: [facility] 05-14-2023 12:05-0400 Body weight 74.84 kg Concepcionmichelle Moore DO Work Phone: [facility] 05-08-2023 11:30-0400 Body height 149.86 cm Courtney Perez Other [facility] Other 05-08-2023 11:30-0400 Body mass index (BMI) [Ratio] 33.24 kg/m2 Courtney Perez Other [facility] Other 05-08-2023 11:30-0400 Body temperature 97.7 [degF] Courtney Perez Other [facility] Other 05-08-2023 11:30-0400 Body weight 74.66 kg Courtney Perez Other [facility] Other 05-08-2023 11:30-0400 Diastolic blood pressure 66 mm[Hg] Courtney Perez Other [facility] Other 05-08-2023 11:30-0400 Respiratory rate 18 /min Courtney Perez Other [facility] Other 05-08-2023 11:30-0400 SaO2% (BldA) [Mass fraction] 98 % Courtneysergio Perez Other [facility] Other 05-08-2023 11:30-0400 Systolic blood pressure 154 mm[Hg] Courtney Perez Other [facility] Other 12-08-2022 16:06-0500 Body height 149.9 cm [facility] [employer] 12-08-2022 16:06-0500 Body mass index (BMI) [Ratio] 33.73 kg/m2 [facility] [employer] 12-08-2022 16:06-0500 Body weight 75.75 kg [facility] [employer] 07-25-2022 10:25-0400 Body height 149.86 cm Adilia Buck Other [facility] Other 07-25-2022 10:25-0400 Body mass index (BMI) [Ratio] 35.14 kg/m2 Adilia Buck Other [facility] Other 07-25-2022 10:25-0400 Body temperature 97.8 [degF] Adilia Buck Other [facility] Other 07-25-2022 10:25-0400 Body weight 78.93 kg Adilia Buck Other [facility] Other 07-25-2022 10:25-0400 Respiratory rate 18 /min Adilia Buck Other [facility] Other 07-25-2022 10:25-0400 SaO2% (BldA) [Mass fraction] 98 % Adilia Buck Other [facility] Other 04-06-2022 12:35-0400 Body height 149.86 cm Ava Madeleine Other [facility] Other 04-06-2022 12:35-0400 Body mass index (BMI) [Ratio] 35.95 kg/m2 Ava Madeleine Other [facility] Other 04-06-2022 12:35-0400 Body temperature 98.8 [degF] Ava Madeleine Other [facility] Other 04-06-2022 12:35-0400 Body weight 80.74 kg Ava Madeleine Other [facility] Other 04-06-2022 12:35-0400 Respiratory rate 18 /min Ava Salvador Other [employer] [employer] Other 04-06-2022 12:35-0400 SaO2% (BldA) [Mass fraction] 97 % Ava Salvador Other [employer] Other 09-09-2021 00:00-0400 90 1 Atul Frazier DO Work Phone: [facility] [address] [place] Work Phone: Comment on above: FSLDL 09-02-2021 10:49-0400 Heart rate 62 /min Atul Hyltondon DO Work Phone: [facility] DO Work Phone: 09-02-2021 10:46-0400 Body height 149.86 cm Atul Hyltondon DO Work Phone: [facility] DO Work Phone: 09-02-2021 10:46-0400 Body mass index (BMI) [Ratio] 34.54 kg/m2 Atul Hyltondon DO Work Phone: [facility] DO Work Phone: 09-02-2021 10:46-0400 Body surface area Derived from formula 1.73 m2 Atul Hyltondon DO Work Phone: [facility] DO Work Phone: 09-02-2021 10:46-0400 Body weight 77.57 kg Atul Hyltondon DO Work Phone: [facility] DO Work Phone: 09-02-2021 10:46-0400 Diastolic blood pressure 70 mm[Hg] Atul Hyltondon DO Work Phone: [facility] DO Work Phone: 09-02-2021 10:46-0400 Systolic blood pressure 138 mm[Hg] Atul Frazier DO Work Phone: [facility] DO Work Phone: 03-07-2021 09:20-0400 BP Diastolic 53 mm[Hg] Bobbi Castr [facility] Work Phone: 03-07-2021 09:20-0400 BP Systolic 136 mm[Hg] Bobbi Castr [facility] Work Phone: 03-07-2021 09:20-0400 Pulse (Heart Rate) 81 /min [facility] Work Phone: 03-07-2021 09:20-0400 Pulse Oximetry 97 % Bobbi PanMarley Spooneulalior [facility] Work Phone: 03-07-2021 09:20-0400 Respiratory Rate 21 /min Bobbisandra Castr [facility] Work Phone: 03-07-2021 09:10-0400 Body Temperature 97.7 [degF] Bobbi BurtMarley Spooneulalior [facility] Work Phone: 03-07-2021 06:58-0400 BMI (Body Mass Index) 37.2 kg/m2 Bobbi PanMarley Spooneulalior [facility] Work Phone: 03-07-2021 06:58-0400 Body weight 80.74 kg Bobbisandra Castr [facility] Work Phone: 03-07-2021 06:58-0400 Height 147.3 cm Bobbi Servoyanteulalior [facility] Work Phone: 02-26-2021 15:57-0400 BMI (Body Mass Index) 37.2 kg/m2 St [facility] Work Phone: 02-26-2021 15:57-0400 Body weight 80.74 kg [facility] Work Phone: 02-26-2021 15:57-0400 Height 147.3 cm [facility] 4 [facility] Work Phone: Encounters Encounter Date Encounter Type Care Provider Facility Start: 10-12-2024 End: 10-12-2024 Orders Only Not In System Ref Prov [facility] Start: 10-10-2024 End: 10-10-2024 Orders Only Gabriela Johns Shauna DO Work Phone: [facility] Start: 10-09-2024 End: 10-09-2024 Orders Only Not In System Ref Prov [facility] Start: 09-30-2024 End: 09-30-2024 ambulatory Smith Sheikh MD Work Phone: [facility] Work Phone: Start: 09-30-2024 End: 09-30-2024 Departed Referred Smith Sheikh MD Work Phone: [facility] Path [facility] Start: 09-28-2024 End: 09-28-2024 Telephone encounter Ava Damon OD Work Phone: Ophthalmology Comment on above: Medication Problem Start: 08-29-2024 End: 08-29-2024 ambulatory SMITH SHEIKH Facility:[facility] Start: 08-29-2024 End: 08-29-2024 Patient encounter procedure Ava Damon OD Work Phone: Ophthalmology Comment on above: Other chronic allerg ic conjunctivitis of both eyes (Primary Dx); Keratoconjunctivitis sicca of both eyes not specified as Sjogren's; Bilateral cornea scars; Pseudophakia of both eyes Start: 07-26-2024 End: 07-26-2024 ambulatory [facility] Start: 06-12-2024 End: 06-14-2024 Emergency department patient visit MARJORIE SYLVESTER [facility] Start: 06-12-2024 End: 06-13-2024 [facility] Start: 03-22-2024 End: 03-23-2024 ambulatory [facility] Start: 03-13-2024 End: 03-13-2024 ambulatory AVA Maria Ines EWINGMARISOL Facility:[facility] Start: 03-13-2024 End: 03-13-2024 Patient encounter procedure Ava Maria Ines Marisol OD Work Phone: Ophthalmology Comment on above: Diabetes mellitus ty pe 2 without retinopathy (HCC) (Primary Dx); Bilateral cornea scars; Keratoconjunctivitis sicca of both eyes not specified as Sjogren's; Other chronic allergic conjunctivitis of both eyes; Pseudophakia of both eyes Start: 02-23-2024 End: 02-23-2024 Subsequent hospital visit by physician Trinidad Licona MD Work Phone: [employer] Comment on above: Canceled (Patient) Start: 02-21-2024 End: 03-22-2024 ambulatory [facility] Start: 02-02-2024 End: 02-03-2024 ambulatory [facility] Start: 02-02-2024 End: 02-02-2024 Subsequent hospital visit by physician Trinidad Licona MD Work Phone: [employer] Comment on above: Lumbosacral spondylo sis without myelopathy (Primary Dx) Start: 01-21-2024 End: 02-21-2024 ambulatory [facility] Start: 12-28-2023 End: 12-28-2023 ambulatory Tayla Torres Other [facility] Other Start: 12-28-2023 Office outpatient vi sit 25 minutes Tayla Torres [facility] Start: 12-23-2023 End: 01-21-2024 ambulatory [facility] Start: 11-30-2023 End: 12-03-2023 ambulatory [facility] Start: 11-29-2023 End: 12-23-2023 ambulatory [facility] Start: 11-08-2023 End: 11-09-2023 ambulatory SMITH Acevedo [facility] Start: 10-26-2023 End: 11-22-2023 ambulatory [facility] Start: 10-21-2023 End: 10-22-2023 [facility] Start: [facility]-14-[facility]23 [facility] Start: 05-14-2023 Telephone encounter Concepcion Moore DO Work Phone: [facility] Comment on above: Medication Question Start: 05-14-2023 End: 05-14-2023 Patient encounter procedure Concepcion Moore DO Work Phone: [facility] Comment on above: Spinal stenosis of l umbar region, unspecified whether neurogenic claudication present (Primary Dx); Degenerative arthropathy of spinal facet joint; Myalgia; Postural imbalance Start: 05-11-2023 Telephone encounter Concepcion Moore DO Work Phone: [facility] Comment on above: Appointment Cancelle d Start: 05-08-2023 End: 05-08-2023 ambulatory Courtney Perez Other [facility] Other Start: 05-08-2023 Office outpatient vi sit 15 minutes Courtney Perez [facility] Start: 04-20-2023 End: 04-21-2023 [facility] Start: 03-26-2023 End: 03-26-2023 Patient encounter procedure Blayne Haro OD Work Phone: Ophthalmology Comment on above: Left facial pain (Pr imary Dx); Keratoconjunctivitis sicca of both eyes not specified as Sjogren's; Bilateral cornea scars; Diabetes mellitus type 2 without retinopathy (HCC) Start: 03-09-2023 ambulatory MEÑO CHANMIJAIMIE . Facility:[facility] Start: 02-23-2023 End: 02-23-2023 ambulatory SMITH SHEIKH Facility:[facility] Start: 02-11-2023 End: 02-12-[address] RONY ARCINIEGA . Facility:[facility] Start: 12-23-2022 Telephone encounter Ava Damon OD Work Phone: Ophthalmology Comment on above: Opened In Error Patient Question Start: 12-08-2022 End: 12-13-2022 ambulatory BOBBI NUNEZ [facility] Start: 12-08-2022 End: 12-12-2022 Subsequent hospital visit [...] outpatient vi sit 15 minutes Adilia Buck [facility] Start: 07-25-2022 End: 07-25-2022 ambulatory CORBY STORM . [facility] Other Start: 07-01-2022 End: 07-02-[address] RONY ARCINIEGA . Facility:[facility] Start: 04-15-2022 Telephone encounter Ava Damon OD Work Phone: Ophthalmology Comment on above: Patient Question Start: 04-07-2022 End: 04-07-2022 Subsequent hospital visit by physician Smith Sheikh MD Work Phone: [facility] Comment on above: Other iron deficienc y anemia Start: 04-06-2022 End: 04-06-2022 ambulatory Ava Madeleine Other [employer] Other Start: 04-06-2022 Office outpatient vi sit 15 minutes Ava Salvador [facility] Start: 02-19-2022 End: 02-19-2022 Patient encounter procedure Ava Maria Ines Damon OD Work Phone: Ophthalmology Comment on above: Diabetes mellitus ty pe 2 without retinopathy (HCC) (Primary Dx); Keratoconjunctivitis sicca of both eyes not specified as Sjogren's; Other chronic allergic conjunctivitis of both eyes; Bilateral cornea scars; Pseudophakia of both eyes; Retinal pigment epithelial mottling of macula Start: 09-19-2021 Chart Update Atul veloz DO Work Phone: [facility] [place] Work Phone: Start: 09-19-2021 [facility], Provider: Atul Frazier, Status: Pen, Time: 10:00 AM Atul Frazier DO Work Phone: [facility] [place] Work Phone: Start: 09-18-2021 AUDIT Atul veloz DO Work Phone: [facility] [address] [place] Work Phone: Start: 09-11-2021 [facility], Provider: Atul Frazier, Status: Pen, Time: 12:00 PM Atul Frazier DO Work Phone: [facility] [address] [place] Work Phone: Start: 09-09-2021 Chart Update Atul veloz DO Work Phone: [facility] [place] Work Phone: Start: 09-02-2021 Office consultation new/estab patient 80 min Atul Frazier DO Work Phone: -[facility] DO Work Phone: Start: 09-02-2021 Patient encounter procedure Atul Frazier DO Work Phone: -[facility] DO Work Phone: Start: 03-07-2021 End: [...] Date Procedure Procedure Detail Performing Clinician Start: 10-12-2024 Blood count complete auto&auto difrntl wbc Not In System Ref Prov Start: 09-30-2024 Level i surg pathology gross examination only Not In System Ref Prov Start: 06-13-2024 History of coronary artery bypass grafting History of coronary artery bypass graft Not Ref Prov Start: 02-02-2024 Glucose blood reagent strip Trinidad aguilar MD Work Phone: Start: 12-02-2022 Comprehensive metabolic panel Bobbi Nunez MD Work Phone: Start: 04-07-2022 Iron binding capacity Smith king MD Work Phone: Start: 04-07-2021 Mammography Ava Damon OD Work Phone: Start: 03-07-2021 Glucose blood reagent strip Bobbi cespedes Work Phone: Start: 03-07-2021 Glucose blood reagent strip Bobbi cespedes Work Phone: Start: 03-07-2021 Colonoscopy Smith Grider Work Phone: Start: 03-03-2021 Assay of folic acid serum Bobbi N Burt guludarren Work Phone: Start: 03-03-2021 Blood count reticulocyte automated Bobbi Kellylur Work Phone: Start: 03-03-2021 Cyanocobalamin vitamin b-12 Bobbi Veloz Binh rubina Work Phone: Start: 03-03-2021 Iron binding capacity Bobbi Cast r Work Phone: Cholecystectomy Atul fermin DO Work Phone: Colonoscopy Atul Frazier DO Work Phone: Operation on the ear Atul Frazier DO Work Phone: Ostectomy of calcane us for spur Atul Frazier DO Work Phone: Partial hysterectomy Atul Frazier DO Work Phone: Tonsillectomy Atul veloz DO Work Phone: Plan of Treatment Date Care Activity Detail Author Start: 03-07-2026 Screening for malignant neoplasm of colon [facility] Start: 06-13-2025 Tobacco Screening Tobacco Screening [facility] Start: 03-14-2025 End: 03-14-2025 Patient encounter procedure 03/14/2025 10:30 AM EDT Office Visit [facility] [address] [place] [address] Ava Damon, OD [address] [place] [address] 1 year diabetic eye exam Ophthalmology Comment on above: 1 year diabetic eye exam Start: 03-13-2025 Glaucoma screening Dilated Retinal Exam [facility] Start: 12-13-2024 Depression Screen Depression Screen [facility] Start: 10-24-2024 End: 10-24-2024 Patient encounter procedure 10/24/2024 11:00 AM EST Office Visit [facility] [address] [place] [address] Esperanza Irving, 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 [address] [place] [address] [facility] Start: 07-23-2024 Covid-19 Vaccine ( season) Covid-19 Vaccine ( season) [facility] Start: 07-23-2024 Influenza vaccination [facility] Start: 07-06-2024 Hemoglobin A1c measurement HbA1C [facility] Start: 06-22-2024 Influenza vaccination Flu vaccine (Season Ended) [employer] Start: 04-10-2024 End: 04-10-2024 Patient encounter procedure 04/10/2024 2:30 PM EDT Office Visit [facility] [address] [place] [phone] Smith Sheikh MD [address] [place] [address] 3 month check [facility] Comment on above: 3 month check Start: 04-07-2024 Shingles vaccine (2 of 2) Shingles vaccine (2 of 2) [employer] Comment on above: Postponed from 09/17/2021 (Unavailable) Start: 04-03-2024 End: 04-03-2024 Patient encounter procedure 04/03/2024 11:15 AM EDT Office Visit [facility] [address] [place] [address] Smith Sheikh MD [address] [place] [address] 3 month f/u [facility] Comment on above: 3 month f/u Start: 03-29-2024 Pneumococcal 65+ years Vaccine (2 - PPSV23 or PCV20) Pneumococcal 65+ years Vaccine (2 - PPSV23 or PCV20) [employer] Comment on above: Postponed from 09/17/2021 (Unavailable) Start: 03-29-2024 Pneumococcal 65+ years Vaccine (2 of 2 - PPSV23 or PCV20) Pneumococcal 65+ years Vaccine (2 of 2 - PPSV23 or PCV20) [facility] Comment on above: Postponed from 09/17/2021 (Unavailable) Start: 03-10-2024 Hepatitis C antibody, confirmatory test DILATED RETINAL EXAM [facility] Start: 12-02-2023 GFR test (Diabetes, CKD 3-4, OR last GFR 15-59) GFR test (Diabetes, CKD 3-4, OR last GFR 15-59) [facility] Start: 11-22-2023 Advance Directive Discussion Advance Directive Discussion [facility] Start: 11-22-2023 Behavioral Health Screening Behavioral Health Screening [facility] Start: 10-21-2023 Depression Screen Depression Screen [facility] Start: 10-21-2023 Hemoglobin A1c measurement A1C test (Diabetic or Prediabetic) [facility] Start: 08-29-2023 Lipid panel Lipids [facility] Start: 07-23-2023 Covid-19 Vaccine ( season) Covid-19 Vaccine (2022- season) [facility] Start: 07-23-2023 COVID-19 Vaccine (2022- season) COVID-19 Vaccine ( season) [facility] Start: 06-22-2023 Influenza vaccination Flu vaccine (#1) [facility] Start: 04-07-2023 Screening for malignant neoplasm of breast Breast cancer screen [facility] Start: 02-19-2023 Hepatitis C antibody, confirmatory test DILATED RETINAL EXAM [facility] Start: 01-20-2023 End: 01-20-2023 Patient encounter procedure 01/20/2023 Office Visit Family Medicine Smith Sheikh MD [address] [place] [phone] Smith Sheikh MD [facility] Start: 2023 RSV Vaccine (1 - 1-dose 75+ series) RSV Vaccine (1 - 1-dose 75+ series) [facility] Start: 12-22-2022 End: 12-22-2022 Admission to same day surgery center 12/22/2022 Surgery Endoscopy Bobbi Nunez MD [address], [facility] [address] [place] [address] EGD BIOPSY [facility] Comment on above: EGD BIOPSY Start: 12-22-2022 End: 12-22-2022 Egd transoral biopsy single/multiple EGD BIOPSY Gastroesophageal reflux disease without esophagitis 12/22/2022 8:00 AM EST [facility] Start: 12-22-2022 Subsequent hospital visit by physician 12/22/2022 Hospital Encounter Endoscopy Bobbi Nunez MD [address], [address] [address] [facility] Start: 12-08-2022 End: 12-08-2022 Patient encounter procedure 12/08/2022 Appointment Pre-Admission Testing [facility] Pre-Admit Testing Start: 11-22-2022 ADVANCE DIRECTIVE DISCUSSION ADVANCE DIRECTIVE DISCUSSION [facility] Start: 11-22-2022 DEPRESSION ASSESSMENT DEPRESSION ASSESSMENT [facility] Start: 11-03-2022 Depression Screen Depression Screen [facility] Start: 08-30-2022 Hemoglobin A1c measurement A1C test (Diabetic or Prediabetic) [facility] Start: 07-23-2022 Influenza vaccination [facility] Start: 07-23-2022 Pneumococcal 65+ years Vaccine (2 - PPSV23 if available, else PCV20) Pneumococcal 65+ years Vaccine (2 - PPSV23 if available, else PCV20) [facility] Start: 07-23-2022 Pneumococcal 65+ years Vaccine (2 - PPSV23 or PCV20) Pneumococcal 65+ years Vaccine (2 - PPSV23 or PCV20) [facility] Start: 05-13-2022 End: 05-13-2022 Patient encounter procedure 05/13/2022 Office Visit Gastroenterology Bobbi Nunez MD [address], [facility] [address] [place] [address] [facility] Start: 04-22-2022 End: 04-22-2022 Patient encounter procedure 04/22/2022 Office Visit Family Medicine Smith Sheikh MD [address] [place] [address] Smith Sheikh MD [facility] Start: 04-07-2022 Mammography MAMMOGRAM [facility] Start: 02-14-2022 Screening for malignant neoplasm of colon FIT/FOBT: Average risk [facility] [employer] [facility] Start: 02-05-2022 Hepatitis C screening Hepatitis C screen [facility] [employer] Phone: Comment on above: Postponed from 1950 (Patient Refus ed) Start: 01-24-2022 COVID-19 VACCINE (4 - Booster for Moderna series) COVID-19 VACCINE (4 - Booster for Moderna series) [facility] Start: 01-22-2022 Creatinine measurement Creatinine monitoring [facility] [employer] Phone: Start: 01-22-2022 HbA1c (Bld) [Mass fraction] A1C test (Diabetic or Prediabetic) [facility] [employer] Phone: Start: 01-22-2022 Lipid panel [facility] [employer] Start: 01-22-2022 Potassium monitoring Potassium monitoring [facility] [employer] Phone: Start: 01-22-2022 TSH Qn TSH testing [facility] [employer] Phone: Start: 11-22-2021 ADVANCE DIRECTIVE DISCUSSION ADVANCE DIRECTIVE DISCUSSION [facility] Start: 11-21-2021 COVID-19 VACCINE (4 - Booster for Moderna series) COVID-19 VACCINE (4 - Booster for Moderna series) [facility] Start: 11-21-2021 COVID-19 VACCINE (5 - Booster for Moderna series) COVID-19 VACCINE (5 - Booster for Moderna series) [facility] Start: 11-21-2021 COVID-19 Vaccine (5 - Booster) COVID-19 Vaccine (5 - Booster) [facility] Start: 10-30-2021 FUV, Provider: Atul Frazier, Status: Pen, Time: 10:10 AM FUV, Provider: Atul Frazier, Status: Pen, Time: 10:10 AM [place] [address] DO Work Phone: Start: 09-17-2021 Administration of varicella zoster vaccine Zoster (Shingles) Vaccine (2 of 2) [facility] Start: 09-17-2021 Pneumococcal Vaccine: 65+ (2 of 2 - PPSV23 or PCV20) Pneumococcal Vaccine: 65+ (2 of 2 - PPSV23 or PCV20) [facility] Start: 09-17-2021 Shingles vaccine (2 of 2) Shingles vaccine (2 of 2) [facility] Start: 09-17-2021 Shingrix Vaccine (2 of 2) Shingrix Vaccine (2 of 2) [facility] Start: 09-11-2021 [facility], Provider: Atul Frazier, Status: Pen, Time: 12:00 PM [facility], Provider: Atul Frazier, Status: Pen, Time: 12:00 PM [facility] 250 DO Work Phone: Start: 08-28-2021 HbA1c (Bld) [Mass fraction] A1C test (Diabetic or Prediabetic) [employer] Phone: Start: 08-23-2021 DTaP/Tdap/Td vaccine (1 - Tdap) DTaP/Tdap/Td vaccine (1 - Tdap) [employer] Phone: Comment on above: Postponed from 1967 (Not Indicated ) Start: 08-23-2021 Pneumococcal 65+ years Vaccine (1 of 1 - PPSV23) Pneumococcal 65+ years Vaccine (1 of 1 - PPSV23) [employer] Phone: Comment on above: Postponed from 2013 (Not Indicated ) Start: 08-23-2021 Shingles Vaccine (1 of 2) Shingles Vaccine (1 of 2) [employer] Phone: Comment on above: Postponed from 1998 (Not Indicated ) Start: 07-23-2021 Influenza vaccination INFLUENZA (#1) [facility] Start: 03-31-2021 End: 03-31-2021 Office Visit 03/31/2021 Office Visit Gastroenterology Bobbi Nunez MD [address], [facility] [address] [place] [address] [phone] [facility] Start: 03-17-2021 End: 03-17-2021 Office Visit 03/17/2021 Office Visit Family Medicine Smith Sheikh MD [address] [place] [address] [phone] [facility] Start: 03-07-2021 End: 03-07-2021 Hospital Encounter [facility] Comment on above: EGD Start: 03-03-2021 End: 02-28-2022 COVID-19 [employer] Phone: Comment on above: Expected: 03/03/2021, Expires: 2 Once for 1 Occurrenc es starting 03/03/2021 until 03/03/2021 Start: 03-03-2021 Hospital Encounter 03/03/2021 Hospital Encounter Lab Pre-op testing (Primary Dx) [facility] Covid Screening Comment on above: Pre-op testing (Primary Dx) Start: 02-26-2021 Hemoglobin A1c measurement HbA1C [facility] Start: 02-26-2021 Hemoglobin A1c/Hemoglobin.total in Blood HBA1C [facility] Start: 12-25-2018 Screening for malignant neoplasm of breast Breast cancer screen [employer] Phone: Start: 08-21-2017 Screening for malignant neoplasm of colon Colon Cancer Screen FIT/FOBT [employer] Phone: Start: 07-31-2017 Creatinine measurement Creatinine monitoring [employer] Phone: Start: 07-31-2017 Lipid panel Lipid screen [employer] Phone: Start: 07-31-2017 Potassium monitoring Potassium monitoring [employer] Phone: Start: 07-31-2017 TSH Qn TSH testing [employer] Phone: Start: 11-19-2015 Diabetic foot examination Diabetic foot exam [employer] Start: 11-19-2015 Diabetic retinal exam Diabetic retinal exam [facility] Start: 11-19-2015 Glaucoma screening Diabetic retinal exam [facility] Start: 2013 BONE DENSITY BONE DENSITY [facility] Start: 2013 Fall Risk Screening Fall Risk Screening [facility] Start: 2013 PNEUMOCOCCAL: 65+ (1 - PCV) PNEUMOCOCCAL: 65+ (1 - PCV) [facility] Start: 2013 PNEUMOVAX AGE 65 AND OVER WITH 5YR LOOKBACK (#1) PNEUMOVAX AGE 65 AND OVER WITH 5YR LOOKBACK (#1) [facility] Start: 2013 Screening for osteoporosis Bone Density Screening [facility] Start: 2008 Respiratory Syncytial Virus (RSV) or age 60 yrs+ (1 - 1-dose 60+ series) Respiratory Syncytial Virus (RSV) or age 60 yrs+ (1 - 1-dose 60+ series) [facility] Start: 2008 RSV Vaccine (1 - 1-dose 60+ series) RSV Vaccine (1 - 1-dose 60+ series) [facility] Start: 1998 SHINGRIX VACCINE (1 of 2) SHINGRIX VACCINE (1 of 2) [facility] Start: 1993 COLOGUARD (FIT-DNA) COLOGUARD (FIT-DNA) [facility] Start: 1993 Colonoscopy COLONOSCOPY [facility] Start: 1993 COLORECTAL CANCER SCREENING COLORECTAL CANCER SCREENING [facility] Start: [address] COLONOGRAPHY [facility] Start: 1993 FECAL OCCULT BLOOD FECAL OCCULT BLOOD [facility] Start: 1993 Screening for malignant neoplasm of colon [facility] Start: 1993 SIGMOIDOSCOPY SIGMOIDOSCOPY [facility] Start: 1967 DTaP,Tdap and Td Vaccines (1 - Tdap) DTaP,Tdap and Td Vaccines (1 - Tdap) [facility] Start: 1967 DTaP/Tdap/Td vaccine (1 - Tdap) DTaP/Tdap/Td vaccine (1 - Tdap) [facility] Start: 1967 Urine microalbumin profile [facility] Start: 1966 ANNUAL PCP TEAM CHRONIC DISEASE VISIT ANNUAL PCP TEAM CHRONIC DISEASE VISIT [facility] Start: 1966 Anxiety Screening Anxiety Screening [facility] Start: 1966 Depression Screening Depression Screening [facility] Start: 1966 Diabetic microalbuminuria test Diabetic microalbuminuria test [facility] [employer] Phone: Start: 1966 Hepatitis B surface antibody level LDL CHOLESTEROL [facility] Start: 1966 HEPATITIS C SCREENING HEPATITIS C SCREENING [facility] Start: 1966 Hepatitis C screening [facility] Start: 1966 Urine screening for protein [facility] Start: 1960 Adult depression screening assessment DEPRESSION SCREENING [facility] Start: 1958 3 comp foot exam completed DIABETIC FOOT EXAM [facility] Start: 1958 Diabetic foot examination Diabetic Foot Exam [facility] Start: 1958 Hepatitis B screening URINE ALBUMIN:CREATININE RATIO [facility] Start: 1954 PNEUMOCOCCAL: 65+ (1 - PCV) PNEUMOCOCCAL: 65+ (1 - PCV) [facility] Start: 1948 Annual Wellness Visit (AWV) Annual Wellness Visit (AWV) [employer] COVID-19 COVID-19 Lab Rou cody 03/03/2021 1:21 PM EDT [employer] Phone: Oxygen therapy [[facility] Data Set] Initiate Oxygen Therapy Protocol Respiratory Care Routine Daily until discontinued starting 03/07/2021 [employer] Phone: Comment on above: Daily until discontinued starting 2020 Surgical Pathology Surgical Path ology Lab Routine Release Upon Ordering for 1 Occurrences starting 03/07/2021 [employer] Phone: Comment on above: Release Upon Ordering for 1 Occurrences starting 03/07/2021 End: 03-03-2021 Tissue Transglutaminase, IgA Tissue Transglutaminase, IgA Lab Routine Anemia, unspecified type 1 Occurrences starting 03/03/2021 until 03/03/2021 [employer] Phone: Comment on above: 1 Occurrences starting 03/03/2021 until 03/03/2021 Tissue Transglutamin ase, IgA Tissue Transglutaminase, IgA Lab Routine Anemia, unspecified type 03/03/2021 10:40 AM EDT [facility] Work Phone: End: 12-02-2022 Tissue Transglutaminase, IgA [facility] Work Phone: Comment on above: 1 Occurrences starting 12/02/2022 until 12/02/2022 [facility] Immunizations Immunization Date Immunization Notes Care Provider Justus pitts 08-28-2022 influenza, high dose seasonal, preservative-free Smith Sheikh MD Work Phone: [facility] 08-28-2022 influenza virus vaccine, unspecified formulation Ava Damon OD Work Phone: [facility] 09-26-2021 COVID-19, PFIZER PUR PLE top, DILUTE for use, (age 12 y+), 30mcg/0.3mL Trinidad Licona MD Work Phone: [facility] 07-23-2021 pneumococcal conjuga te vaccine, 13 valent Atul Frazier DO Work Phone: [facility] 07-23-2021 zoster vaccine recombinant Atul Frazier DO Work Phone: [facility] 250 DO Work Phone: 07-23-2021 zoster vaccine, unspecified formulation Not Ref Prov [facility] 02-23-2021 COVID-19, Moderna, Primary or Immunocompromised, PF, 100mcg/0.5mL [facility] Phone: 02-20-2021 Moderna COVID-19 Vaccine 100 MCG/0.5ML Intramuscular Suspension Atul Frazier DO Work Phone: [facility] 250 DO Work Phone: 01-31-2021 COVID-19, Moderna, P F, 100mcg/0.5mL [facility] 4 [facility] Work Phone: 01-23-2021 Moderna COVID-19 Vaccine 100 MCG/0.5ML Intramuscular Suspension Atul Frazier DO [facility] Work Phone: 10-26-2020 Influenza, High-dose , Quadv, 65 yrs +, IM (Fluzone) [facility] [employer] Work Phone: Payers Date Payer Category Payer Self-pay 2019 Auto Insurance [employer] [id number] 2017 Medicare HUMANA MEDICARE HU[employer]NA MEDICARE PPO [id number] 2017-Present [phone] [place] [address] PPO [id number] 2017 Medicare HUMANA MEDICARE HU[employer]NA MEDICARE PPO [id number] 2017-Present [phone] [place] [address] PPO [id number] 2017 Medicare HMO HU[employer]NA MEDICARE [id number] 1959 Private Health Insurance [id number] [id number] 1948 Unknown [id number] 2.16.840.1.648016.3.579. 2.593 1948 Unknown [id number] 2.16.840.1.311156.3.579. 2.593 1948 Unknown [id number] 2.16.840.1.769019.3.579. 2.593 1948 Unknown [id number] 2.16.840.1.199064.3.579. 2.593 1948 Unknown [id number] 2.16.840.1.563152.3.579. 2.593 1948 Unknown [id number] 2.16.840.1.419869.3.579. 2.593 1948 Unknown [id number] 2.16.840.1.763885.3.579. 2.593 1948 Unknown [id number] 2.16.840.1.093749.3.579. 2.593 1948 Unknown [id number] 2.16.840.1.947583.3.579. 2.593 1948 Unknown [id number] 2.16.840.1.269168.3.579. 2.593 1948 Unknown [id number] 2.16.840.1.422884.3.579. 2.593 1948 Unknown [id number] 2.16.840.1.010295.3.579. 2.176 1948 Unknown [id number] 2.16.840.1.258173.3.579. 2.176 1948 Unknown [id number] 2.16.840.1.985955.3.579. 2.176 1948 Unknown [id number] 2.16.840.1.637678.3.579. 2.175 1948 Unknown [id number] 2.16.840.1.608448.3.579. 2.175 1948 Unknown [id number] 2.16.840.1.059267.3.579. 2.175 1948 Unknown [id number] 2.16.840.1.376700.3.579. 2.175 1948 Unknown [id number] 2.16.840.1.687013.3.579. 2.175 1948 Unknown [id number] 2.16.840.1.466182.3.579. 2.175 1948 Unknown [id number] 2.16.840.1.669966.3.579. 2.1286 1948 Unknown [id number] 2.16.840.1.131547.3.579. 2.1286 1948 Unknown [id number] 2.16.840.1.516202.3.579. 2.1286 1948 Unknown [id number] 2.16.840.1.967410.3.579. 2.128 1948 Unknown [id number] 2.16.840.1.981936.3.579. 2.1286 1948 Unknown [id number] 2.16.840.1.004207.3.579. 2.1286 1948 Unknown [id number] 2.16.840.1.569868.3.579. 2.1286 1948 Unknown [id number] 2.16.840.1.707397.3.579. 2.1244 Medicare Medicare [id number] Unknown [employer] GOLD CHOICE Unknown [id number] 2.16.840.1.931625.3.579. 2.531 Social History Date Type Detail Facility Start: 02-26-2021 End: 06-13-2024 Tobacco smoking status [facility] Never smoker [facility] Start: 02-26-2021 End: 06-13-2024 Tobacco use and exposure Never used [employer] Phone: Start: 02-26-2021 End: 06-13-2024 Alcohol intake Current non-drinker of alcohol (finding) [employer] Phone: Start: 02-05-2021 History SDOH Social Connections Phone 5 [employer] Phone: Start: 02-05-2021 End: 02-19-2022 History SDOH Social Connections Get Together 1 [employer] Phone: Start: 02-05-2021 History SDOH Social Connections Scientology 3 [employer] Phone: Start: 02-05-2021 History SDOH Physical Activity DPW 0 [employer] Phone: Start: 02-05-2021 History SDOH Education 12 [employer] Phone: Start: 02-05-2021 History SDOH IPV Fear 2 [employer] Phone: Start: 05-19-2013 Alcohol Comment never drank [employer] Phone: Start: 1950 Sex Assigned At Not on file [employer] Phone: Start: 01-23-2022 End: 12-08-2022 Exposure to SARS-CoV-2 (event) Not sure [employer] Phone: Start: 01-02-2021 End: 11-03-2021 No alcohol use No alcohol use -[facility] DO Work Phone: Start: 02-19-2022 End: 08-29-2024 Alcohol intake Lifetime non-drinker (finding) [facility] Start: 01-02-2021 End: 02-05-2021 Sex Assigned At [facility] [employer] Other Start: 08-28-2022 History SDOH Financial 4 [employer] Work Phone: Do you belong to any clubs or organizations such as jewish groups, unions, fraternal or athletic groups, or school groups? Yes [employer] Are you now , , , , never or living with a partner? [employer] How hard is it for y ou to pay for the very basics like food, housing, medical care, and heating Not hard at all [employer] Do you feel stress - tense, restless, nervous, or anxious, or unable to sleep at night because your mind is troubled all the time - these days [OSQ] Not at all [facility] (I/We) worried wheth er (my/our) food would run out before (I/we) got money to buy more. Never true [employer] At any time in the p ast 12 months, were you homeless or living in skilled nursing [including now]? No [employer] Start: 10-03-2024 Sex Patient sex unknown (finding) [facility] Start: 1950 Sex Assigned At Female [facility] Start: 06-27-2015 Sex Female (finding) [employer] [facility] [employer] Procedure Code Equipment Code Equipment Origin al Text Equipment Identifier Dates 100 each by In V itro route 2 times daily As needed. [id number] Start: 02-24-2018 1 kit by Does no t apply route 2 times daily [id number] Start: 02-24-2018 Patient test blo od sugar BID [id number] Start: 02-24-2018 End: 12-08-2022 Lens Iol +21.5 D iop Acrsf Iq - [id number] Start: 01-10-2014 100 each by In V itro route 2 times daily As needed. [id number] Start: 07-28-2022 Goals Date Patient Goal Desired Activity /State Personal health goal Comment on above: Formatting of this n ote might be different from the original. Evaluation of progress towards goal: In progress: DC to home today. Clinical Notes 11-03-2010 to 10-10-2024 Telephone Encounter - Courtney Barbosa CMA - 10/10/2024 9:52 AM ESTTelephone Encounter - Courtney Barbosa CMA - 10/10/2024 9:52 AM ESTTelephone Encounter - Astrid Latham - 09/28/2024 8:54 AM EST Note Date & Type Note Facility 10-10-2024 Miscellaneous Notes ----- Message from Dr. Gabriela Villatoro DO sent at 10/10/2024 6:51 AM EST ----- Please call pt. And let her know that she has erosive esophagitis and she should increase her pantoprazole to 40 mg bid for 6 weeks only and continue to take the sucralfate 1 gm ac and hs for 1 month. She should avoid NSAID's, lots of caffeine, alcohol or tobacco. I will send order for pantoprazole and chart state that she already has sucralfate rx. ThanksDr. Keyes documented in this encounter [facility] 10-10-2024 Telephone encounter Note ----- Message from Dr. Gabriela Villatoro DO sent at 10/10/2024 6:51 AM EST ----- Please call pt. And let her know that she has erosive esophagitis and she should increase her pantoprazole to 40 mg bid for 6 weeks only and continue to take the sucralfate 1 gm ac and hs for 1 month. She should avoid NSAID's, lots of caffeine, alcohol or tobacco. I will send order for pantoprazole and chart state that she already has sucralfate rx. ThanksDr. Keyes [facility] 09-28-2024 Telephone encounter Note Pt is requesting a new eye drop prescription or another alternative due to the rx that was given being to expensive. Pt states they are 25 dollars and too much. Would like something else. Would like something sent to [facility] in [place] on [address] [facility] 09-28-2024 Miscellaneous Notes Pt is requesting a new eye drop prescription or another alternative due to the rx that was given being to expensive. Pt states they are 25 dollars and too much. Would like something else. Would like something sent to [facility] in [place] on [address] documented in this encounter [facility] 08-29-2024 Note HNO ID: [id number] Author: AVA DAMON, MAYLIN Service: ? Author Type: FUR BUYER Type: Progress Notes Filed: 08/29/2024 15:26 Note [...] Damon OD August 29, 2024 3:24 PM [facility] 08-29-2024 History of Present illness Narrative [...] eyes - ICD9: V43.1, ICD10: Z96.1 Ava Damon OD I have confirmed and [...] 2024 3:24 PM documented in this encounter [facility] 08-29-2024 Instructions Ava Damon OD - 08/29/2024 11:44 AM EDT Short term: start maxitrol drops (steroid) 3 times daily in both eyes for 5 days, then stop. This should help you feel better quickly terminal operator: also start allergy drops (either Rx, or OTC Pataday, Zaditor) twice a day. Go back to Refresh for artificial tears documented in this encounter [facility] 06-12-2024 Note XR CHEST 2 VWS Procedure: Chest x-ray performed Number of views:2 History:Chest pain Covid positive Comparison:01/20/2020 Findings: The heart and lungs show no acute findings, and the mediastinum and brennen are grossly negative . Impression: 1. No acute change. Finalized by Marvin Ackerman MD on 06/12/2024 9:29 PM [facility] 03-13-2024 Instructions Ava Damon OD - 03/13/2024 11:10 AM EDT Dry eye is likely causing the blurred vision in the morning, and blurriness that gets worse with prolonged reading. Start using artificial tears 2-3 times daily, when needed. Here are some good lwmz-vrp-cmbansx brands: Systane, Refresh, TheraTears Restart the pataday allergy drops in both eyes every morning during allergy seasons documented in this encounter [facility] 03-13-2024 Note HNO ID: [id number] Author: AVA DAMON OD Service: ? Author Type: FUR BUYER Type: Progress Notes Filed: 03/13/2024 11:12 Note [...] Damon OD March 13, 2024 11:08 AM [facility] 03-13-2024 History of Present illness Narrative [...] 2024 11:08 AM documented in this encounter [facility] 02-23-2024 History of Present illness Narrative Pt called to cancel appt she is ill will call office to reschedule. documented in this encounter [facility] 02-23-2024 Hospital Discharge instructions Chichi Castrejon [...] may use ice to reduce soreness. Call [facility] at [phone] if you experience: Fever, chills or temperature over 100 Vomiting, Headache, persistent stiff neck, nausea, blurred vision Difficulty in urinating or unable to urinate with 8 hours Increase in weakness, numbness or loss of function Increased redness, swelling or drainage at the injection site documented in this encounter [facility] 02-02-2024 Hospital Discharge instructions Chichi Castrejon [...] Please complete pain diary as instructed. Call [facility] at [phone] if you experience: Fever, chills or temperature over 100 Vomiting, Headache, persistent stiff neck, nausea, blurred vision Difficulty in urinating or unable to urinate with 8 hours Increase in weakness, numbness or loss of function Increased redness, swelling or drainage at the injection site documented in this encounter [facility] 12-28-2023 Evaluation note Encounter Date Diagnosis [...] understanding and is agreeable to treatment plan [facility] 06-23-2023 NoteHNO ID: [id number] Author: RT Brandyn(R) Service: Radiology Author Type: Cell Technician Type: Progress Notes Filed: 05/14/2023 1:06 PM [...] BY: RT Brandyn(R) May 14, 2023 1:06 [id number] Miscellaneous Notes* Telephone Encounter - Dominique Meneses LPN - 05/14/2023 1:24 PM EDT Pt came back to the front desk officer requesting tramadol Spoke to pt and advised Dr Moore does not prescribe narcotics for chronic pain and will need to secure the tramadol from the prior prescriber-also noted in office visit note Pt stated the prescriber did not want to see her anymore Advised pt to see if another provider/PCP would possibly consider prescribing the tramadol Pt verbalized understanding [facility] History of Present illness Narrative* Concepcion [...] supervised home exercise program (HEP): No 4. Watch Guard Gate: No 5. What are your limitations: Standing [...] not taking: No sig reported) MV with Fhp-Iqzwzbhw-Cewoat 0.4 mg-300 mcg- 250 mcg tab Take [...] Past Histories independently gathered by the clinical unit support representative and the remaining scribed note accurately describes [...] surgical care. No neurological deficits noted during todays exam. PT - Core stabilization exercises, stretching/ [...] which included preparing to see the patient, rnfk-wx-zylg patient care, completing clinical documentation, obtaining and/or [...] forwarded to consulting/requesting physician. Concepcion Moore DO, ILSA documented in this encounter[facility] Miscellaneous Notes* Telephone Encounter - Frank Pillai - 05/11/2023 9:26 AM EDT 05/11/2023 LVM documented in this encounter[facility] Evaluation note* Encounter Date Diagnosis Assessment [...] fever. Patient verbalized understanding of treatment plan. [facility] 05-30-2023 NoteCONSULTATION CONSULTATION DATE: 04/20/2023 TO: [facility] HISTORY: Patient presents today complaining [...] that she consider follow up with the [facility], as the patient is requesting the same. In the interim, I have asked her to discontinue her baclofen secondary to ineffectiveness. To continue with the tramadol until she follows up with her new physician and primary caregivers for pain management at the [facility], and we will facilitate that referral. As part of providing excellent, safe, comprehensive care, the following was completed at our patient's visit: 1. A medication reconciliation and review to ensure accurate knowledge of current/active medications, including asking our patients to inform us about any dmjk-pan-dlzsmxb medications or herbal remedies/nutritional supplements/alternative remedies. 2. [...] treatment options with their primary care provider.[facility] [id number] History of Present illness Narrative* Blayne Haro OD - 03/29/2023 1:47 PM EDT Sed Rate and CRP normal Blayne Haro OD March 29, 2023 1:47 PM * Blayne Haro OD - 03/26/2023 3:00 PM EDT ASSESSMENT/PLAN: [...] with all of its relevant components. Blayne Haro OD March 26, 2023 3:00 PM documented in this encounter[facility]2023 NoteCONSULTATION CONSULTATION DATE: 02/11/2023 TO: [facility] CHIEF COMPLAINT: Includes right sided [...] of the iliohypogastric nerve under fluoroscopic guidance.[facility] 12-23-2022 Miscellaneous Notes* Telephone Encounter - Yaquelin Wang - 12/23/2022 3:30 PM EST Called patient and told her about the recommendation to see Dr. Childers in [place]. * Telephone Encounter - Yaquelin Wang - [...] would like it to go to the [facility] [address] [place]. Please advise. documented in [facility] encounter[facility] History of Present illness Narrative* Shanna [...] lotion, powder, jewelry, piercings, perfume, makeup, nail slovak, hair accessories, or hair spray on the day of surgery. Wear loose comfortable clothing. Leave your valuables at home. Bring a storage case for any glasses/contacts. An adult who is responsible for you MUST drive you home and should be with you for the first 24 hours after surgery. The Day of Surgery: Arrive at [facility] at the time directed by your surgeon and check in at the desk. If you have a living will or healthcare power of attorney general, please bring a copy. You will be taken to the pre-op holding area where you will be prepared for surgery. A physical assessment will be performed by a nurse practitioner or mixing house operator. Your IV will be started [...] and understanding verbalized. [facility] Work Phone: 1(369) 845-394012-20-2022 NoteCONSULTATION CONSULTATION DATE: 11/10/2022 CHIEF COMPLAINT: Low [...] mg b.i.d. will be refilled for her.[facility] [id number] Evaluation note* Encounter Date Diagnosis Assessment Notes [...] the ER for worsening symptoms or concerns. [facility] 08-10-2022 NoteCONSULTATION CONSULTATION DATE: 07/01/2022 This is a pleasant 72-year-old female returning to the clinic for a 3-month follow-up for her chronic lower back pain and right hip pain. Today she was complaining of right buttocks pain and hip pain that she feels is affecting her ambulation. She rates it 7 out of 10 and describes it as sharp. 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 Please advise. documented in this encounter[facility] Evaluation note* Encounter Date Diagnosis Assessment [...] persist or do not improve *VIRAL URI [facility] GIVEN ON OTC TREATMENTS, FOLLOW UP AND [...] Patient care instructions given in writting by [facility] document. [facility] 03-31-2022 History of Present illness Narrative* [...] 19, 2022 11:51 AM documented in this encounterTri[facility] Chief complaint Narrative - Reported* MARAH [...] a history of prior heart catheterization in [place] remotely that revealed normal coronary arteries. I [...] and also offered conservative based medical therapies. [facility] [address] Work Phone: 1(415) 173-395912-13-2010 History of Past illness Narrative* Problem Noted Date Resolved Date Senile cataract, unspecified 11/03/2010 documented as of this encounter (statuses as of 02/19/2022) [facility]12-13-2010 History of Past illness Narrative* Problem Noted Date Resolved Date Senile cataract, unspecified 11/03/2010 documented as of this encounter (statuses as of 04/15/2022) [facility]12-13-2010 History of Past illness Narrative* Problem Noted Date Resolved Date Senile cataract, unspecified 11/03/2010 documented as of this encounter (statuses as of 12/23/2022) [place] [address]-13-2010 History of Past illness Narrative* Problem Noted Date Resolved Date Senile cataract, unspecified 11/03/2010 documented as of this encounter (statuses as of 03/29/2023) [place] [address]-13-2010 History of Past illness Narrative* Problem Noted Date Resolved Date Senile cataract, unspecified 11/03/2010 documented as of this encounter (statuses as of 05/11/2023) [place] [address]-13-2010 History of Past illness Narrative* Problem Noted Date Resolved Date Senile cataract, unspecified 11/03/2010 documented as of this encounter (statuses as of 05/14/2023) [facility] History of Past illness Narrative* Problem Noted Date Resolved Date Senile cataract, unspecified 11/03/2010 documented as of this encounter (statuses as of 05/14/2023) [facility] HospitalChi complaint Narrative - ReportedMARAH SILVA is being seen for a consultation for abnormal test(s) results.-[facility] [employer] Work Phone: Evaluation note* Diagnosis Diabetes mellitus [...] Other retinal disorders documented in this encounter [facility]* Diagnosis Other iron deficiency anemia documented in this encounter [employer] Phone: evaluation note* Diagnosis Chronic anemia Anemia, unspecified Weight loss Loss of weight Iron deficiency anemia secondary to inadequate dietary iron intake Gastroesophageal reflux disease without esophagitis Esophageal reflux documented in this encounter [facility] [employer] [employer] Phone: evaluation note* Diagnosis Left facial pain- Primary Headache Keratoconjunctivitis sicca of both eyes not specified as Sjogren's Keratoconjunctivitis sicca, not specified as Sjogren's Bilateral cornea scars Corneal opacity, unspecified Diabetes mellitus type 2 without retinopathy (HCC) Type II or unspecified type diabetes mellitus without mention of complication, not stated as uncontrolled documented in this encounter [facility] note* Diagnosis Spinal stenosis of lumbar region, unspecified whether neurogenic claudication present- Primary Degenerative arthropathy of spinal facet joint Spondylosis of unspecified site without mention of myelopathy Myalgia Mylagia and myositis, unspecified Postural imbalance Disorders of soft tissue, unspecified documented in this encounter [facility] note* Diagnosis Lumbosacral spondylosis without myelopathy- Primary documented in this encounter [facility] note* Diagnosis Diabetes mellitus type 2 [...] means documented in this encounter [facility] note* Diagnosis Other chronic allergic conjunctivitis of both eyes- Primary Keratoconjunctivitis sicca of both eyes not specified as Sjogren's Keratoconjunctivitis sicca, not specified as Sjogren's Bilateral cornea scars Corneal opacity, unspecified Pseudophakia of both eyes Lens replaced by other means documented in this encounter [facility] noteNo assessment information availableHolzer Health System Work Phone: Hisxbop general Narrative - Reported* Type Description Date Medical History diabetes mellitus Medical History Hypothyroidism Medical History osteoporosis Medical History Chronic obstructive pulmonary di sease Medical History Hearing loss Medical History asthma Surgical History cholecystectomy Surgical History partial hysterectomy Surgical History tonsillectomy Surgical History colonoscopy Surgical History ear surgery Surgical History back ablasion Hospitalization History See Above [facility] Other History general Narrative - Reported* Type Description Date Medical History diabetes mellitus Medical History Hypothyroidism Medical History osteoporosis Medical History Chronic obstructive pulmonary di sease Medical History Hearing loss Medical History asthma Surgical History cholecystectomy Surgical History partial hysterectomy Surgical History tonsillectomy Surgical History colonoscopy Surgical History ear surgery Surgical History back ablasion Hospitalization History See Above Hospitalization History blood pressure elevated [facility] Other InstructionsNot on filedocumented in this encounter [facility] SystemInstructionsNot on filedocumented in this encounter [facility] SystemReason for referral (narrative)* - Pending Review Specialty Diagnoses / Procedures Referred By Bernardino mcmahan Referred To Contact Physical Therapy Diagnoses Spinal stenosis of lumbar region, unspecified whether neurogenic claudication present Degenerative arthropathy of spinal facet joint Myalgia Postural imbalance Procedures CONSULT [place] [address] [place] [address] Referral ID Status Reason Start Date Expiration Date V isits Requested Visits Authorized [id number] Pending Review 05/14/2023 08/12/2023 1 1 * Diagnostic Procedure Only (Routine) - Closed Specialty Diagnoses / Procedures Referred By Bernardino mcmahan Referred To Contact XR IMAGING Diagnoses Spinal stenosis of lumbar region, unspecified whether neurogenic claudication present Degenerative arthropathy of spinal facet joint Myalgia Postural imbalance Procedures XR PELVIS 1V AP RADIOLOGIC EXAMINATION PELVIS 1/[place] [address] [place] [address] Xr Imaging Referral ID Status Reason Start Date Expiration Date V isits Requested Visits Authorized [id number] Closed Auto-Generate d Referral 05/14/2023 06/12/2024 1 1 * Diagnostic Procedure Only (Routine) - Closed Specialty Diagnoses / Procedures Referred By Bernardino mcmahan Referred To Contact XR IMAGING Diagnoses Spinal stenosis of lumbar region, unspecified whether neurogenic claudication present Degenerative arthropathy of spinal facet joint Myalgia Postural imbalance Procedures XR LUMBAR GENERAL 3V AP/LAT/L5-S1 RADEX SPINE LUMBOSACRAL 2/3 [place] [address] [place] [address] Xr Imaging Referral ID Status Reason Start Date Expiration Date V isits Requested Visits Authorized [id number] Closed Auto-Generate d Referral 05/14/2023 06/12/2024 1 1 [facility] History of Present Illness * Gay [...] lotion, powder, jewelry, piercings, perfume, makeup, nail slovak, hair accessories, or hair spray on the day of surgery. Wear loose comfortable clothing. 4. Leave your valuables at home. Bring a storage case for any glasses/contacts. 5. An adult who is responsible for you MUST drive you home and should be with you for the first 24 hours after surgery. The Day of Surgery: Arrive at [facility] at the time directed by your surgeon and check in at the desk. If you have a living will or healthcare power of attorney general, please bring a copy. You will be taken to the pre-op holding area where you will be prepared for surgery. A physical assessment will be performed by a nurse practitioner or mixing house operator. 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 Only take otkz-tat-lqdozna or prescription medicines for pain, discomfort, or [...] 11/08/2006 Document Revised: 05/09/2013 Document Reviewed: 03/08/2013 [facility] Patient Information 2013 [email or web address]. Colonoscopy: What to Expect at Home Your [...] Where can you learn more? Go to [email or web address] and sign in to your [employer] account. Enter E264 in the Search Health Information box to learn more about Colonoscopy: What to Expect at Home. If you do not have an account, please click on the Sign Up Now link. [id number] [employer]. Care instructions adapted under license by [employer]. This care instruction is for use with your licensed healthcare professional. If you have questions about a medical condition or this instruction, always ask your healthcare professional. [employer] disclaims any warranty or liability for your use of this information. Content Version: [id number]; Last Revised: January 11, 2013 EGD DISCHARGE [...] of fluids when exercising. MEDICATIONS: Take an argd-odp-ebylhvt fiber supplement as noted above twice daily. [...] to call your physician or the hospital squaring machine operator if you have any questions, [...] Whole-grain breads, muffins, bagels, or verna bread [place] bread Whole-wheat crackers or crisp breads Whole-grain or bran cereals Oatmeal, oat bran, or grits Wheat germ Whole-wheat pasta and brown rice Read the ingredients list on food labels. Look for products that list whole as the first ingredient (eg, whole-wheat, whole oats). Choose cereals with at least 2 grams of fiber per serving. Vegetables All vegetables, especially asparagus, rocha sprouts, broccoli, [place] sprouts, cabbage, carrots, cauliflower, celery, corn, greens, [...] beans, lentils, lehman beans, split peas, and sutotn beans All nuts and seeds, especially almonds, peanuts, Rolfe nuts, cashews, peanut butter, walnuts, sesame and [...] be sent through Care Everywhere. * Esophagitis (Thai) documented in this encounter Family History Unknown [...] disease: Mother, Father, Sister, Brother(V17.3, Z82.49) Status:Active Relationship Condition Age at Onset Recorded Date/T anthony mother Myocardial infarction Unknown Malignant neoplasm Unknown father Diabetes mellitus Unknown Heart problem Unknown family member Diabetes mellitus Unknown father Unknown mother Unknown Summary Purpose Additional Source Comments Reason for Visit (unrecogniz ed section and content) Status Reason Specialty Diagnoses / Procedures Re ferred By Contact Referred To Contact Diagnoses Anemia ANEMIA COVID 03/03 Procedures MI ESOPHAGOGASTRODUODENOSCOPY TRANSORAL DIAGNOSTIC MI COLONOSCOPY FLX DX W/COLLJ SPEC WHEN PFRMD EGD COLONOSCOPY DIAGNOSTIC Bobbi Nunez MD [address] [address] [facility] Reason Comments Keratoconjunctivitis sicca Reason Comments Patient Question Reason Onset Date Comments Opened In Error 12/23/2022 Reason Comments Eye Problem Left Eye Reason Comments Appointment Cancelled Reason Comments Pain Rt lower back pain Reason Comments Medication Question Specialty Diagnoses / Procedures Referred By Bernardino mcmahan Referred To Contact Pain Management Diagnoses Spondylosis without myelopathy or radiculopathy, lumbosacral region Procedures MI NJX DX/THER AGT PVRT FACET JT LMBR/SAC 1 LEVEL MI NJX DX/THER AGT PVRT FACET JT LMBR/SAC 2ND LEVEL Trinidad Licona MD [address] [place] [address] Trinidad Licona MD [address] [place] [address] Referral ID Status Reason Start Date Expiration Date Visits Re quested Visits Authorized [id number] Open 01/05/2024 01/04/2025 1 1 Specialty Diagnoses / Procedures Referred By Bernardino t Referred To Contact Pain Management Diagnoses Spondylosis without myelopathy or radiculopathy, lumbosacral region Procedures MI DSTR NROLYTC AGNT PARVERTEB FCT SNGL LMBR/SACRAL MI DSTR NROLYTC AGNT PARVERTEB FCT ADDL LMBR/SACRAL Trinidad Licona MD [address] [place] [address] Trinidad Licona MD [address] [place] [address] Referral ID Status Reason Start Date Expiration Date Visits Re quested Visits Authorized [id number] Open 02/23/2024 05/24/2024 1 1 Reason Comments Diabetic Eye Exam Reason Comments Tearing Both Eyes Reason Comments Medication Problem INFORMATION SOURCE (unrecogn ized section and content) DATE CREATED AUTHOR 09/03/2021 [facility] DATE CREATED AUTHOR AUTHOR'S ORGANIZ ATION 04/30/2023 [facility] DATE CREATED AUTHOR AUTHOR'S ORGANIZ ATION 05/15/2023 [facility] DATE CREATED AUTHOR AUTHOR'S ORGANIZ ATION 12/03/2023 [facility] DATE CREATED AUTHOR AUTHOR'S ORGANIZ ATION 03/23/2024 [facility] DATE CREATED AUTHOR AUTHOR'S ORGANIZ ATION 06/15/2024 [facility] DATE CREATED AUTHOR AUTHOR'S ORGANIZ ATION 07/27/2024 [facility] Ambulatory DATE CREATED AUTHOR AUTHOR'S ORGANIZ ATION 09/30/2024 [facility] DATE CREATED AUTHOR AUTHOR'S ORGANIZ ATION 10/07/2024 [facility] Source Comments (unrecognize d section and content) In the event this informatio n is protected by the Federal Confidentiality of Alcohol and Drug Abuse Patient Records regulations: The Federal rules restrict any use of the information to criminally investigate or prosecute any alcohol or drug abuse patient.[facility] the event this information is protected by the Federal Confidentiality of Alcohol and Drug Abuse Patient Records regulations: The Federal rules restrict any use of the information to criminally investigate or prosecute any alcohol or drug abuse patient.[facility] the event this information is protected by the Federal Confidentiality of Alcohol and Drug Abuse Patient Records regulations: The Federal rules restrict any use of the information to criminally investigate or prosecute any alcohol or drug abuse patient.[facility] the event this information is protected by the Federal Confidentiality of Alcohol and Drug Abuse Patient Records regulations: The Federal rules restrict any use of the information to criminally investigate or prosecute any alcohol or drug abuse patient.[facility] the event this information is protected by the Federal Confidentiality of Alcohol and Drug Abuse Patient Records regulations: The Federal rules restrict any use of the information to criminally investigate or prosecute any alcohol or drug abuse patient.[facility] the event this information is protected by the Federal Confidentiality of Alcohol and Drug Abuse Patient Records regulations: The Federal rules restrict any use of the information to criminally investigate or prosecute any alcohol or drug abuse patient.[facility] the event this information is protected by the Federal Confidentiality of Alcohol and Drug Abuse Patient Records regulations: The Federal rules restrict any use of the information to criminally investigate or prosecute any alcohol or drug abuse patient.[facility] the event this information is protected by the Federal Confidentiality of Alcohol and Drug Abuse Patient Records regulations: The Federal rules restrict any use of the information to criminally investigate or prosecute any alcohol or drug abuse patient.[facility] the event this information is protected by the Federal Confidentiality of Alcohol and Drug Abuse Patient Records regulations: The Federal rules restrict any use of the information to criminally investigate or prosecute any alcohol or drug abuse patient.[facility] the event this information is protected by the Federal Confidentiality of Alcohol and Drug Abuse Patient Records regulations: The Federal rules restrict any use of the information to criminally investigate or prosecute any alcohol or drug abuse patient.[facility] Hospital[facility] the event this information is protected by the Federal Confidentiality of Alcohol and Drug Abuse Patient Records regulations: The Federal rules restrict any use of the information to criminally investigate or prosecute any alcohol or drug abuse patient.[facility] Care Teams (unrecognized sec tion and content) [employer] Relationship Specialty Start Date End Date Smith Sheikh MD [address] [place] [id number] PCP - General 01/08/14 [employer] Relationship Specialty Start Date End Date Smith Sheikh MD [address] [place] [id number] PCP - General Family Medicine 05/18/13 [employer] Relationship Specialty Start Date End Date Smith Sheikh MD [address] [place] [id number] PCP - General Family Medicine 05/18/13 [employer] Relationship Specialty Start Date End Date Smith Sheikh MD [address] [place] [id number] PCP - General 01/08/14 [employer] Relationship Specialty Start Date End Date Smith Sheikh MD [address] [place] [id number] PCP - General Family Medicine 05/18/13 [employer] Relationship Specialty Start Date End Date Smith Sheikh MD [address] [place] [id number] PCP - General 01/08/14 [employer] Relationship Specialty Start Date End Date Smith Sheikh MD [address] [place] [address] [id number] PCP - General 01/08/14 [employer] Relationship Specialty Start Date End Date Smith Sheikh MD [address] [place] [address] [id number] PCP - General 01/08/14 [employer] Relationship Specialty Start Date End Date Smith Sheikh MD [address] [place] [address] [id number] PCP - General 01/08/14 [employer] Relationship Specialty Start Date End Date Smith Sheikh MD [address] [place] [id number] PCP - General Family Medicine 05/18/13 [employer] Relationship Specialty Start Date End Date Smith Sheikh MD [address] [place] [id number] PCP - General Family Medicine 05/18/13 [employer] Relationship Specialty Start Date End Date Smith Sheikh MD [address] [place] [address] [id number] PCP - General 01/08/14 [employer] Relationship Specialty Start Date End Date Smith Sheikh MD [address] [place] [address] PCP - General 01/08/14 [employer] Relationship Specialty Start Date End Date Smith Sheikh MD [address] [place] [address] PCP - General 01/08/14 Team Status: Active Member Role Status Dates Smith Sheikh MD Primary Care Provider Active Team Status: Inactive Member Role Status Dates Smith Sheikh MD Primary Care Provider Active Start: September 30, 2024 End: September 30, 2024 Gabriela Villatoro DO Attending Provider Active Start: September 30, 2024 End: September 30, 2024 [employer] Relationship Specialty Start Date End Date Smith Sheikh MD [address] [place] [address] PCP - General Family Medicine 12/07/17 [employer] Relationship Specialty Start Date End Date Smith Sheikh MD [address] [place] [address] PCP - General Family Medicine 12/07/17 [employer] Relationship Specialty Start Date End Date Smith Sheikh MD [address] [place] [address] PCP - General Family Medicine 12/07/17 Goals (unrecognized section and content) Goals may be documented in a n alternate section FOR RECORDS PERTAINING TO PATIENTS WHO ARE [...] BE BASED ON THE PRIMARY CLINICAL RECORDS. [facility] [employer] [facility]. provides no warranty or guarantee of the accuracy or completeness of information in this document.
[2024-11-04 13:07] LABS: Estimated Average Glucose 140 mg/dL; Glycohemoglobin A1C 6.5 % (4.5-6.2)
== END 2024-11-04 12:37 | disposition home or self-care (01) ==
LOC: LAB 12:36
PROVIDERS: PCP Family Medicine
DX: E11.9 Type 2 diabetes mellitus without complications (principal)
CPT/HCPCS: 36415; 83036

== ENCOUNTER 2024-11-06 16:40 | Outpatient (OUT) | payer MEDICARE, SELFPAY ==
[2024-11-06 17:00] LABS: Basophils Absolute Auto 0.1 10^3/uL (0.0-0.1); Basophils Percent Auto 0.8 % (0.2-2.0); Eosinophils Absolute Auto 0.3 10^3/uL (0.0-0.7); Eosinophils Percent Auto 3.9 % (0.9-7.0); Hematocrit 30.1 % (36.0-48.0); Hemoglobin 9.2 g/dL (12.0-16.0); Immature Granulocytes Abs Auto 0.01 10^3/uL (0.00-0.03); Immature Granulocytes Pct Auto 0.1 % (0.0-0.5); Lymphocytes Absolute Auto 2.6 10^3/uL (1.2-3.8); Mean Corpuscular HGB Conc 30.6 g/dL (29.9-35.2); Mean Corpuscular Hemoglobin 27.6 pg (26.7-34.0); Mean Corpuscular Volume 90.4 fL (81.0-99.0); Mean Platelet Volume 8.9 fL (9.5-13.5); Monocytes Absolute Auto 0.5 10^3/uL (0.3-0.8); Monocytes Percent Auto 7.5 % (1.7-12.0); Neutrophils Absolute Auto 3.6 10^3/uL (1.4-6.5); Neutrophils Percent Auto 50.7 % (43.0-75.0); Platelet Count 311 10^3/uL (150-450); Red Blood Count 3.33 10^6/uL (4.20-5.40); Red Cell Distribution Width 14.2 % (11.0-15.0); White Blood Count 7.1 10^3/uL (4.0-11.0)
== END 2024-11-06 16:41 | disposition home or self-care (01) ==
PROVIDERS: PCP Family Medicine
DX: D50.0 Iron deficiency anemia secondary to blood loss (chronic) (principal)
CPT/HCPCS: 36415; 85025

== ENCOUNTER 2024-11-30 14:25 | Outpatient (OUT) | payer MEDICARE, SELFPAY | END 2024-11-30 14:26 | disposition home or self-care (01) | LOC: PST 14:25 | PROVIDERS: PCP Family Medicine; Visit Provider Surgery | DX: D64.9 Anemia, unspecified (principal); Z12.11 Encounter for screening for malignant neoplasm of colon ==

== ENCOUNTER 2025-02-02 11:01 | Outpatient (OUT) | payer MEDICARE, SELFPAY ==
--- OUTSIDE RECORDS SUMMARY | 2025-02-02 11:10 | XMS_ITS | CCD ---
Author Organization [facility] CliniSyil Care Team Providers Care 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 Name Role Phone Smith Sheikh Primary Care Provider [phone] Unavailable Unavailable Smith Sheikh MD Primary Care Provi israel Smith Sheikh MD Primary Care Provider Ava Salvador Unavailable Adilia Buck Unavailable Smith Sheikh MD Primary Care Provider Smith Sheikh MD Primary Care Provi israel EMETERIO ., CORBY Attending Unavailable EMETERIO ., CORBY Admitting Unavailable [facility] Primary Care Unavailable ALEX HUERTA Consulting Unavailable EMETERIO ., CORBY Consulting Unavailable [facility] Primary Care Unavailable LAKSHMIPATHY ., NARENDRANATH Attending Valery vailable LAKSHMIPATHY ., NARENDRANATH Admitting Valery vailable LAKSHMIPATHY ., NARENDRANATH Consulting Valery vailable ARCINIEGA ., DR RONY Reinoso Attending Unavailable [facility] Primary Care Unavailable ARSHAD .GOGO Consulting Unavailable ARCINIEGA ., DR RONY Reinoso Admitting Unavailable LAKSHMIPATHY ., NARENDSILKEATH Consulting Valery vailable ARCINIEGA ., DR RONY Reinoso Consulting [facility] Care Unavailable ARCINIEGA ., DR RONY Reinoso Admitting Unavailable ARCINIEGA ., DR RONY Reinoso Attending Unavailable ARSHAD ., GOGO Consulting Unavailable LAKSHMIPATHY ., NARENDRANATH Attending Valery vailable LAKSHMIPATHY ., NARENDRANATH Admitting Valery vailable [facility] Primary Care Unavailable SUZE ., DR RONY [...] SMITH Attending Unavailable RAGOTHAMAN, SMITH Admitting Unavailable MISSiria, DR BRANNON Consulting Unavailable RAGOTHAMAN, SMITH Consulting Unavailable RAGOTHAMAN, SMITH Primary Care Unavailable NADERER, DR MARLA Puente Consulting Unavailable NADERER, DR MARLA Puente Attending Unavailable NADMONICAR, DR MARLA Puente Admitting Unavailable TREVON NAGY Consulting Unavailable HARIS OSUNA Consulting Unavailable GABRIELA MITTAL Consulting Unavailable EMETERIO ., CORBY Consulting Unavailable EMETERIO ., CORBY Attending Unavailable RAGOTHAMAN, SMITH Primary Care Unavailable EMETERIO ., CORBY Admitting Unavailable ASTRID RODRIGUEZ Consulting Unavaila BILL Vivar Consulting Unavailable Courtney Perez Unavailable [facility] Primary Care Unava ilable [facility] Referring [...] Care Unavailabl e LICONA, ABDI Referring Unavailable ARLENEOTHAMAN, SMITH M Primary Care Unavailabl e LICONA, ABDI Referring Unavailable RAGOTHAMAN, SMITH M Primary Care Unavailabl e LICONA, ABDI Referring Unavailable RAGOTHAMAN, SMITH M Primary Care Unavailabl e LICONA, ABDI Referring Unavailable RAGOTHAMAN, SMITH M Primary Care Unavailabl e LICONA, ABDI Referring Unavailable RAGOTHAMAN, SMITH M Primary Care Unavailabl e RAGOTHAMAN, SMITH M Primary Care Unavailabl e MARJORIE ARDON Attending Unavailable FAUSTO MARCOS Admitting Unavailable [facility] Consulting Unavailable TERESA ODOM Consulting Unavailable MARJORIE ARDON Attending Unavailable MARJORIE ARDON Referring Unavailable ARLENEOTHAMAN, SMITH M Primary Care Unavailabl e LICONA, ABDI Referring Unavailable ARLENEOTHAMAN, SMITH M Primary Care Unavailabl e ATUL FRAZIER Attending Unavailable ARLENEOTHAMAN, SMITH M Primary Care Unavailabl e Kedar EDWARDS [facility] Primary Care Provider Gabriela Villatoro DO Attending Provider ESPERANZA IRVING Attending Unavailable ARLENEOTHAMAN, SMITH M Referring Unavailabl e ARLENEOTHAMAN, SMITH M Primary Care Unavailabl merline Sheikh MD [facility] Primary Care Provider Courtney Perez APRN Attending Provider [phone] Courtney Perez Admitting Unavailable Courtney Perez Attending Unavailable Gabriela Villatoro Attending Unavailable Ragothaman, Smith M Primary Care Unavailashutosh e Gabriela Villatoro Admitting Unavailable [facility] Primary Care Provider SELF Referring Unavailable AVA DAMON Attending Unavailable [facility] Care Unava ilable [facility] Primary Care Unava ilable AVA DAMON Referring Unavailable AVA DAMON Attending Unavailable Allergies Allergy Classification Reported Allergen(s) Allergy Type Date of Onset Reaction(s) Facility (20 sources) Cetirizine; Translations: [CETIRIZINE HCL] Drug Allergy 009 [facility] Phone: (20 sources) Ciprofloxacin; Translations: [Ciprofloxacin HCl TABS] Drug Allergy 013 Unknown, GI Upset, Other [facility] Phone: (20 sources) Morphine; Translations: [morphine] Drug Allergy 009 Shortness of breath, Unknown [facility] Phone: (13 sources) Penicillins; Translations: [PENICILLINS] Propensity to adverse reactions to drug 009 Rash [facility] Phone: (20 sources) Sulfamethoxazole / Trimethoprim; Translations: [SULFAMETHOXAZOLE- TRIMETHOPRIM] Drug Allergy 009 Nausea And Vomiting, Nausea Only, GI Upset [facility] Phone: (6 sources) traMADol Drug Allergy 021 Other (See Comments) [facility] Phone: (16 sources) Cetirizine; Translations: [Cetirizine HCl TABS] Drug Allergy 009 Other [facility] (5 sources) Penicillins; Translations: [Penicillins] Allergy to drug (finding) -[facility] [employer] DO Work Phone: (9 sources) Sulfamethoxazole / Trimethoprim; Translations: [Bactrim TABS] Drug Allergy stomach pain [employer] [employer] DO Work Phone: (5 sources) Sulfonamides (Antibiotic); Translations: [Sulfa Drugs] Allergy to drug (finding) [facility] [employer] DO Work Phone: (20 sources) Ibuprofen; Translations: [IBUPROFEN] Drug Allergy 018 Unknown [facility] (2 sources) Penicillins Propensity to adverse reactions 009 [facility] (4 sources) Cetirizine Drug Allergy blood pressure elevated [employer] [facility] [employer] Other (7 sources) Penicillin G Benzathine; Translations: [penicillin G benzathine] Drug allergy 024 [facility] (2 sources) sulfaSALAzine Drug Allergy Unknown [employer] [facility] [employer] Other (20 sources) Penicillins Propensity to adverse reactions to drug 009 [facility] [employer] Work Phone: (1 source) Cetirizine Drug Allergy 015 [facility] (1 source) Ciprofloxacin Drug Allergy 015 [facility] (2 sources) Morphine Drug Allergy 015 [facility] (2 sources) Penicillins Drug allergy (disorder) 015 [facility] (2 sources) Sulfamethoxazole / Trimethoprim Drug Allergy 015 [facility] (1 source) Sulfonamides (Antibiotic) Drug allergy (disorder) 015 [facility] (3 sources) Substance with sulfonamide structure and antibacterial mechanism of action (substance) Drug allergy 022 GI Upset, Nausea Only [facility] [employer] Other (6 sources) Cetirizine; Translations: [CETIRIZINE] Drug Allergy 009 Unknown Reaction, blood pressure elevated [facility] (4 sources) Sulfonamides (Antibiotic); Translations: [SULFA (SULFONAMIDE ANTIBIOTICS)] Propensity to adverse reactions to drug (disorder) stomach upset [facility] Rep[facility] (3 sources) Sulfamethoxazole; Translations: [sulfamethoxazole] Drug Allergy Gastrointestinal Upset, stomach pain [facility] (3 sources) Trimethoprim; Translations: [trimethoprim] Drug Allergy Gastrointestinal Upset, stomach pain [facility] (1 source) Ciprofloxacin Drug Allergy [facility] (1 source) Morphine Drug Allergy [facility] (1 source) Penicillins Drug allergy (disorder) [facility] Medications Current Medications Medication Drug Class(es) Dates Sig (Normalized) Sig (Original) acetaminophen 325 mg oral tablet (20 sources) Start: 06-12-2024 take 1 tablet by mouth every four hours as needed for pain and headache and fever 650 mg, oral, Every 4 hours PRN, mild pain - pain scale 1-3, headaches, temperature greater than 38 C, Temperature greater than 38.3 C, Starting on Wed06/12/24 at 2317, [Warning: Total Acetaminophen not to exceed more than 4 grams (4000 mg) in 24 hours] Start: 06-12-2024 End: 06-12-2024 take 1000 mg by mouth once 1,000 mg, oral, Once, On 06/12/24 at 1925, For 1 dose Start: 03-26-2021 Acetaminophen ER 650 MG Oral Tablet Extended Release Quantity: 20 Refills: 0 Ordered: 26-Mar-2021 DO Start : 26-Mar-2021 Complete acetaminophen (T YLENOL ORAL) Take 650 mg by mouth as needed. Active take 1 tablet by every six hours as needed acetaminophen (Tylenol) 500 mg tablet Take 1 tablet (500 mg) by mouth every 6 hours if needed. Active End: 12-04-2022 take 1 tablet by mouth twice daily acetaminophen (TYLENOL) 650 MG extended release tablet Take 650 mg by mouth 2 times daily 0 12/04/2022 Discontinued (LIST CLEANUP) Comment on above: Take 650 mg by mouth as needed. acetaminophen 300 mg / codeine phosphate 30 mg oral tablet (16 sources) Opioid Agonist Start: 0 acetaminophen-codein e (TYLENOL-COD #3) 300-30 mg per tablet 10/13/2020 Active acetaminophen 325 mg / HYDROcodone bitartrate 5 mg oral tablet (1 source) Opioid Agonist Start: 4 take 1 tablet by mouth every four hours as needed for pain and pain 1 tablet, oral, Every 4 hours PRN, moderate pain - pain scale 4-6, severe pain - pain scale 7-10, Starting on Wed06/13/24 at 0456, Look-alike/sound-ali ke medication - verify indication for use. Advair Diskus 250-50 MCG/DOSE (4 sources) take 1 puff(s) by inhalation twice daily Advair Diskus 250-50 MCG/DOSE 1 puff Inhalation Twice a day Active [id number] 200 actuat albuterol 0.09 mg/actuat metered dose inhaler (20 sources) beta2-Adrenergic Agonist Start: take 2.5 mg by inhalation every four to six hours as needed for wheezing Albuterol Sulfate 2.5 mg /3 mL (0.083 %) solution for nebulization Active 2.5 MG INHALATION EVERY 4-6 HOURS as needed for shortness of breath or wheezing 75 December 01, 2024 12:00am Start: 12-01-2024 Albuterol Sulf ate 90 mcg/actuation HFA aerosol inhaler Active INHALATION December 01, 2024 12:00am Start: 12-28-2023 take 2 puff(s) by in halation every four to six hours as needed [...] puff(s) by in halation every six hours albuterol 90 mcg/actuation inhaler Inhale 2 puffs every 6 hours if needed. 01/28/2023 Active Start: 04-06-2022 take 2 puff(s) [...] as instructed every 4 hours. 08/04/2019 Active ipratropium-albu teroL (Duo-Neb) 0.5-2.5 mg/3 mL nebulizer solution Inhale 4 times a day. Active take 1 [IU] by inhal ation [...] Wheezing 1 Inhaler 3 02/05/2021 Active amLODIPine 5 mg oral tablet (20 sources) Dihydropyridine Calcium Channel [place] Start: 07-26-20 End: 07-26-20 take 1 tablet by mouth once daily amLODIPine (Norvasc) 5 mg tablet Indications: Essential hypertension Take 1 tablet (5 mg) by mouth once daily. 90 tablet 3 07/26/2024 07/26/2025 Active Start: 08-11-2021 amLODIPine Bes ylate 2.5 MG Oral Tablet Quantity: 90 Refills: 0 Ordered: 11-Aug-2021 DO Start : 11-Aug-2021 Complete Start: 08-09-2020 End: 07-26-2024 take 1 tablet by mouth once daily at bedtime Amlodipine 2.5 mg tablet Active 2.5 MG PO Daily at bedtime September 08, 2021 11:00pm Comment on above: Take 2.5 mg by mouth once daily. TAKE 1 TABLET DAILY Amlodipine & Diet Manage Prod 2.5 MG (4 sources) Amlodipine & t Manage Prod 2.5 MG as directed Orally Active Ascorbic Acid (5 sources) Vitamin C ascorbic acid (VITAMIN C ORAL) Take by mouth. Active Aspir-81 81 MG (4 sources) take 1 tablet by mouth once daily Aspir-81 81 MG 1 tablet Orally Once a day for 30 day(s) Active aspirin 81 mg delayed release oral tablet (20 sources) Platelet Aggregation Inhibitor, Nonsteroidal Anti-inflammatory Drug Start: End: take 81 mg by mouth once daily 81 mg, oral, Daily, First dose on Wed06/13/24 at 1445, Do not crush or chew. BABY ASPIRIN ORA L Take by mouth. Active aspirin 81 MG ch ewable tablet Take by mouth 0 Active BABY ASPIRIN ORA L Take by mouth. 0 Active Comment on above: Take by mouth. Take 81 mg by mouth. atorvastatin 10 mg oral tablet (20 sources) HMG-CoA Reductase Inhibitor Start: 06-13-2024 take 10 mg by mouth once daily 10 mg, oral, Nightly, First dose on Wed06/13/24 at 2200, Look-alike/sound-al eliel medication - verify indication for use. Start: 08-04-2021 Atorvastatin C alcium 10 MG Oral Tablet Quantity: 90 Refills: 0 Ordered: 04-Aug-2021 DO Start : 04-Aug-2021 Complete Start: 11-07-2020 take 1 tablet by brinda once daily Atorvastatin 10 mg tablet Active 10 MG PO Daily September 08, 2021 11:00pm Comment on above: Take 10 mg by mouth once daily. TAKE 1 TABLET DAILY baclofen 10 mg oral tablet (15 sources) [...] Start: 05-08-2023 take 1 capsule by mo [facility] three times daily as needed for cough Benzonatate 200 MG 1 capsule Orally Three times a day prn cough for 10 days Apr, Not-Taking/PRN biotin 10 mg oral capsule (20 sources) Start: 09-09-2021 take 1 capsule by mouth twice daily Biotin 10,000 mcg Capsule Active 12779 MCG PO Twice daily September 08, 2021 11:00pm biotin 1 mg cap Take by mouth. Active take 1 tablet by mouth once elia y biotin 10 mg tablet Take 1 tablet (10 mg) by mouth once daily. Active Biotin 02735 MCG TABS Take by mouth 0 Active Comment on above: Take by mouth. calcium ascorbate 500 mg oral tablet (3 sources) Start: take 1 tablet by mouth once daily Ascorbate Calcium (Vitamin C) 500 mg tablet Active 500 MG PO Daily June 10, 2024 11:00pm 100 ml calcium gluconate 20 mg/ml injection (1 source) Start: take 4-4.3 mg intravenously every hour as needed 2,000 mg, intravenous, at 50 mL/hr, Administer over 2 Hours, As needed, ionized calcium 4 to 4.3 mg/dL, Starting on Wed06/12/24 at 2317, IV Administration of calcium via a central or deep vein preferred. Avoid administration in small hand veins VESICANT (RED) calcium gluconate 3,000 mg in sodium chloride 0.9 % 100 mL IVPB (1 source) Start: take 3.5-3.9 mg intravenously every hour as needed 3,000 mg, intravenous, at 43.3 mL/hr, Administer over 3 Hours, As needed, ionized calcium 3.5 to 3.9 mg/dL, Starting on Wed06/12/24 at 2317, IV Administration of calcium via a central or deep vein preferred. Avoid administration in small hand veins VESICANT (RED) calcium gluconate 4,000 mg in sodium chloride 0.9 % 250 mL IVPB (1 source) Start: take 3.4 mg intravenously every hour as needed 4,000 mg, intravenous, at 72.5 mL/hr, Administer over 4 Hours, As needed, ionized calcium 3.4 mg/dL or less, Starting on Wed06/12/24 at 2317, IV administration of calcium via a central or deep vein is preferred. Avoid administration in small hand veins. VESICANT (RED) cephalexin 500 mg oral capsule (2 sources) Cephalosporin Antibacterial Start: take 1 capsule by mouth three times daily Cephalexin 500 mg capsule Active 500 MG PO Three times daily 11 06December 19, 2024 12:00am End: 06-13-2024 CEPHalexin (KEFLEX) 500 mg c apsule Take 500 mg by mouth in the morning and 500 mg at noon and 500 mg in the evening and 500 mg before bedtime. 06/13/2024 Discontinued (Stop Taking at Discharge) Uthiwlrng-TR-Fepjfmpyvpqqj (CORICIDIN D COLD/FLU/SINUS PO) (2 sources) Ixhknpneb-AO-Pgd taminophen (CORICIDIN D COLD/FLU/SINUS PO) Take by mouth 0 Active ubidecarenone 200 mg oral capsule (20 sources) Start: 2020 take 1 capsule by mouth once daily Coenzyme Q10 200 mg cap Take 1 capsule by mouth once daily. 07/17/2021 Active Start: 07-17-2021 CoQ10 200 MG O ral Capsule Quantity: 30 Refills: 0 Ordered: 16-Aug-2021 DO Start : 17-Jul-2021 Complete take 1 capsule by mo uth once daily coenzyme Q-10 200 mg capsule Take 1 capsule (200 mg) by mouth once daily. Active Co Q-10 200 MG O ral Capsule TAKE DIRECTED. Quantity: 0 Refills: 0 Ordered: 02-Sep-2021 DO Active take 1 capsule by mo uth once daily, then take 10 capsules by mouth once, then take 10 capsules by mouth Coenzyme Q10 (CO Q 10) 10 MG CAPS Take 10 mg by mouth daily 0 Active Comment on above: Take 1 capsule by mo uth once daily. COMP-AIR NEBULIZER COMPRESSOR (4 sources) Start: 03-07-2024 COMP-AIR NEBULIZER COMPRESSOR 03/07/2024 Active Start: 03-07-2024 COMP-AIR NEBUL IZER COMPRESSOR cyanocobalamin, vitamin B-12 , (B-12 DOTS ORAL) (12 sources) cyanocobalamin, vitamin B-12, (B-12 DOTS ORAL) Take by mouth. Active cyanocobalamin, vitamin B-12, (B-12 DOTS ORAL) Take by mouth. 0 Active Comment on above: Take by mouth. desloratadine 5 mg oral tablet (12 sources) Histamine-1 Receptor Antagonist Start: 9 desloratadine(C LARINEX 5 MG TAB) Take by mouth. 0 04/05/2009 Active Comment on above: Take by mouth. dexamethasone 1 mg/ml / neomycin 3.5 mg/ml / polymyxin b 26366 unt/ml ophthalmic suspension (5 sources) Aminoglycoside Antibacterial, Polymyxin-class Antibacterial, Corticosteroid Start: 4 take 1 drop(s) into the eye(s) three times daily NEOMYCIN-POLYMY APOLLO-DEXAMETH 3.5 MG/ML-10,000 UNIT/ML-0.1% EYE DROPS Use 1 Drop in both eyes three times a day. 5 mL 08/29/2024 Active Start: 11-18-2020 Neomycin-Polym yxin-Dexameth 3.5-57758-2.1 Ophthalmic Ointment Quantity: 3 Refills: 0 Ordered: 18-Nov-2020 DO Start : 18-Nov-2020 Complete diclofenac potassium 50 mg oral tablet (12 sources) Nonsteroidal Anti-inflammatory Drug Start: 08-21-2020 diclofenac potassium (CATAFLAM) 50 mg tablet 08/21/2020 Active docusate sodium 50 mg / sennosides, half-way 8.6 mg oral tablet (1 source) Start: 06-12-2024 take 1 tablet by mouth every twelve hours as needed for constipation 1 tablet, oral, Every 12 hours PRN, constipation, Starting on Wed06/12/24 at 2317 doxycycline monohydrate 100 mg oral capsule (6 sources) Tetracycline-class Drug Start: 12-28-2023 take 1 capsule by mouth every twelve hours Doxycycline Monohydrate 100 MG 1 capsule Orally every 12 hrs for 10 days Dec, Active Start: 09-22-2023 take 1 tablet by brinda th every twelve hours Doxycycline Hyclate 100 MG 1 tablet Orally Twice a day for 10 day(s) Sep, Not-Taking/PRN Start: 03-02-2021 Doxycycline Mo nohydrate 100 MG Oral Capsule Quantity: 20 Refills: 0 Ordered: 02-Mar-2021 DO Start : 02-Mar-2021 Complete esomeprazole 40 mg delayed release oral capsule (12 sources) Proton Pump Inhibitor take 1 capsule [...] tablet ferrous sulfate 325 mg oral tablet (20 sources) Start: 1 take 1 tablet by mouth twice daily ferrous sulfate (IRON 325) 325 (65 Fe) MG tablet Take 1 tablet by mouth 2 times daily 90 tablet 1 09/01/2021 Active Start: 09-01-2021 Ferrous Sulfat e 325 (65 Fe) MG Oral Tablet Delayed Release Quantity: 90 Refills: 0 Ordered: 01-Sep-2021 DO Start : 01-Sep-2021 Complete Start: 03-17-2021 take 1 tablet by brinda th three times weekly Ferrous Sulfate 325 mg (65 mg iron) Tablet Active 325 MG PO 3 Times a week November 28, 2021 12:00am Wednesday, Wednesday, Wednesday take 1 tablet by brinda th once daily at breakfast ferrous sulfate 325 (65 FE) mg tablet Take 1 tablet (325 mg total) by mouth daily with breakfast. Wednesday, Wednesday, WEDNESDAY Active take 1 tablet by brinda th three times weekly ferrous sulfate 325 (65 Fe) MG EC tablet Take by mouth. 1 tablet 3 times a week Active fexofenadine hydrochloride 180 mg oral tablet (14 sources) Histamine-1 Receptor Antagonist take 1 tablet by mouth once daily fexofenadine (DELMI) 180 mg tablet Take 180 mg by mouth once daily. Active Delmi Active Comment on above: Take 180 mg by mouth once daily. fluticasone propionate 0.05 mg/actuat metered dose nasal spray (20 sources) Corticosteroid Start: 12-01-2024 Fluticasone Propionate 50 mcg/actuation spray,suspension Active 2 SPRAY INTRANASAL daily December 01, 2024 12:00am Start: 02-14-2024 take 2 spray(s) nasa l route once daily fluticasone (Flonase) 50 mcg/actuation nasal spray USE 2 SPRAY(S) IN EACH NOSTRIL ONCE DAILY FOR 14 DAYS 02/14/2024 Active Start: 02-14-2024 take 2 spray(s) nasa l route once daily fluticasone (FLONASE) 50 MCG/ACT [...] into each nostril in the morning. Active Fluticasone Propion-Salmeterol (20 sources) Corticosteroid, beta2-Adrenergic Agonist Start: 12-01-2024 Fluticasone Propion-Salmeterol 250-50 mcg/dose blister with device Active 1 INH INHALATION Twice daily December 01, 2024 12:00am Start: 06-18-2024 fluticasone pr opion-salmeteroL (Advair Diskus) 250-50 mcg/dose diskus inhaler USE 1 INHALATION TWICE A DAY 06/18/2024 Active Start: 04-09-2023 take 1 puff(s) by in halation in the morning fluticasone-salmeterol (ADVAIR) 250-50 MCG/ACT [...] the morning and 1 puff before bedtime. take 1 puff(s) by in halation every twelve hours Advair Diskus 250-50 MCG/DOSE Inhalation Aerosol Powder Breath Activated INHALE 1 PUFF EVERY 12 HOURS. Quantity: 0 Refills: 0 Ordered: 02-Sep-2021 DO Active Comment on above: USE 1 INHALATION TWI CE A DAY furosemide 20 mg oral tablet (13 sources) Loop Diuretic Start: 05-06-2020 take 1 [...] Take 20 mg by mouth once daily. glucagon (rdna) 1 mg injection (2 sources) Antihypoglycemic Agent Start: 06-12-2024 1 mg, intramuscular, As needed, low blood sugar, blood glucose less than 70 mg/dL and unconscious or NPO without IV access., Starting on 06/12/24 at 2317, If conscious and not NPO, immediately follow with meal tray or high protein (7Grams) snack if tray not available. If NPO, initiate IV 5% Dextrose/Water at 100 mL/hr and contact prescriber for additional orders. If blood glucose is not greater than 70 mg/dL after initial treatment, repeat treatment. 150 ml glucose 50 mg/ml injection (6 sources) Start: 06-12-2024 15 g, oral, As needed, low blood sugar, blood glucose less than 70 mg/dL, Starting on Wed06/12/24 at 2317, If patient conscious and taking PO. If blood glucose is not greater than 70 mg/dL after initial treatment, repeat treatment. Start: 06-12-2024 25 mL, intrave nous, As needed, low blood sugar, blood glucose less than 70 mg/dL and unconscious or NPO with IV access, Starting on Wed06/12/24 at 2317, Push over 1-3 minutes STAT. If conscious and not NPO, immediately follow with meal tray or high protein (7 grams) snack if tray not available. If NPO, initiate 5% dextrose in water at 100 mL/hr and contact prescriber for additional orders. If blood glucose is not greater than 70 mg/dL after initial treatment, repeat treatment. VESICANT (RED) Warning: HYPERTONIC solution. Start: 06-12-2024 take 70 mg intraveno usly every hour 100 mL/hr, intravenous, Continuous PRN, blood glucose less than 70 mg/dL, Starting on Wed06/12/24 at 2317, Use immediately following dextrose 50% or glucagon treatment for patients who are unconscious or NPO. Contact prescriber for additional orders. If blood glucose is not greater than 70 mg/dL after initial treatment, repeat treatment. 1 ml heparin sodium, porcine 5000 unt/ml injection (1 source) Unfractionated Heparin, Anti-coagulant Start: 06-13-2024 5,000 Units, subcutaneous, Every 8 hours scheduled, First dose on Wed06/13/24 at 0600, Notify prescriber if INR greater than 1.9, hemoglobin less than 10 mg/dL, aPTT greater than 40 seconds, and/or platelet count less than 100,000/mm Look-alike/sound-alike medication - verify indication for use. Observe for bleeding. 1 ml hydrALAZINE hydrochloride 20 mg/ml injection (1 source) Arteriolar Vasodilator Start: 06-12-2024 take 10 mg intravenously every four hours as needed 10 mg, intravenous, Every 4 hours PRN, high blood pressure, SBP > 180, Starting on Wed06/12/24 at 2318, Look-alike/sound-alike medication - verify indication for use. Administer IV doses as a slow IV push; maximum rate: 5 mg/minute. 3 ml insulin lispro 100 unt/ml pen injector (2 sources) Insulin Analog Start: 06-13-2024 inject 400 mg by subcutaneous injection three times daily at mealtime, then inject 2 [IU] by subcutaneous injection 15 minutes after mealtime 2-10 Units, subcutaneous, 3 times daily with meals, First dose on Wed06/13/24 at 0800, Daytime hyperglycemia dosing. For blood glucose 151-200 mg/dL, give 2 units. For blood glucose 201-250 mg/dL, give 4 units. For blood glucose 251-300 mg/dL, give 6 units. For blood glucose 301-350 mg/dL, give 8 units. For blood glucose 351-400 mg/dL, give 10 units. Give even if NPO or meals skipped. Do NOT give more often then every 4 hours when NPO. Notify prescriber if blood glucose greater than 400 mg/dL. Look-alike/sound-alike medication - verify indication for use. Prime with 2 units of insulin prior to administration. Prandial/supplemental Insulin. Pre-filled pens stable 28 days at room temperature. Insulin lispro should be administered within 15 minutes before or immediately after a meal. Start: 06-12-2024 inject 400 mg by sub cutaneous injection once daily, then inject 2 [IU] by subcutaneous injection 15 minutes after mealtime 2-8 Units, subcutaneous, Nightly, First dose on Wed06/12/24 at 2320, Bedtime hyperglycemia dosing. For blood glucose 201-250 mg/dL, give 2 units. For blood glucose 251-300 mg/dL, give 4 units. For blood glucose 301-350 mg/dL, give 6 units. For blood glucose 351-400 mg/dL, give 8 units. Give even if NPO or meals skipped. Do NOT give more often then every 4 hours when NPO. Notify prescriber if blood glucose greater than 400 mg/dL. Look-alike/sound-alike medication - verify indication for use. Prime with 2 units of insulin prior to administration. Prandial/supplemental Insulin. Pre-filled pens stable 28 days at room temperature. Insulin lispro should be administered within 15 minutes before or immediately after a meal. ketotifen 0.25 mg/ml ophthalmic solution (5 sources) Histamine-1 Receptor Inhibitor Start: 05-08-2023 take 1 drop(s) into the eye(s) twice daily ketotifen (Zaditor) 0.025 % (0.035 %) ophthalmic solution INSTILL 1 DROP INTO AFFECTED EYE TWICE DAILY FOR 7 DAYS 05/08/2023 Active Start: 05-08-2023 take 1 drop(s) [...] Active Start: 01-08-2014 take 1 tablet by brinda th in the morning levothyroxine (SYNTHROID, LEVOTHROID) 100 MCG tablet Take 1 tablet (100 mcg total) by mouth in the morning. 05/29/2022 Active take 1 tablet by brinda th once daily in the morning Levothyroxine Sodium 100 MCG 1 tablet on an empty stomach in the morning Orally Once a day for 30 day(s) Active Comment on above: Take 1 tablet by brinda th once daily. 1 tab qd loratadine 10 mg oral tablet (15 sources) Start: 05-08-2023 End: 10-11-2024 take 1 tablet by mouth once daily Loratadine 10 mg tablet Active 10 MG PO Daily December 01, 2024 12:00am lycopene (1 source) take 1 tablet by mouth once daily LYCOPENE ORAL Take 1 tablet by mouth once daily. Active magnesium oxide 400 mg oral tablet (1 source) Start: 12-01-2024 take 1 tablet by mouth once Magnesium Oxide 400 mg (241.3 mg magnesium) tablet Active 400 MG PO Once December 01, 2024 12:00am 50 ml magnesium sulfate 40 mg/ml injection (2 sources) Start: 06-12-2024 2,000 mg, intravenous, at 25 mL/hr, Administer over 120 Minutes, As needed, Magnesium level 1.7 to 1.9 mg/dL, or Ionized Magnesium level 0.45 to 0.5 mmol/L., Starting on Wed06/12/24 at 2317, Recheck magnesium level 4 hours after infusion complete. With each magnesium result continue the replacement orders as needed. Start: 06-12-2024 4,000 mg, intr avenous, at 25 mL/hr, Administer over 240 Minutes, As needed, Magnesium level 1.6 mg/dL or less, or Ionized Magnesium level 0.44 mmol/L or less, Starting on Wed06/12/24 at 2317, Recheck magnesium level 4 hours after infusion complete. With each magnesium result continue the replacement orders as needed. meloxicam 7.5 mg oral tablet (16 sources) Nonsteroidal Anti-inflammatory Drug Start: 07-22-2023 End: 11-03-2024 meloxicam (MOBIC) 7.5 mg tablet 02/16/2024 Active metFORMIN hydrochloride 500 mg oral tablet (20 sources) Biguanide Start: 05-29-2021 metFORMIN HCl - 500 MG Oral Tablet Quantity: 270 Refills: 0 Ordered: 29-May-2021 DO Start : 29-May-2021 Complete Start: 11-27-2019 metFORMIN (GLU COPHAGE) 500 mg tablet TAKE 2 TABLETS EVERY MORNING AND TAKE 1 TABLET EVERY EVENING 11/27/2019 Active Start: 04-05-2009 End: 06-11-2024 take 1 tablet by mouth once daily in the evening Metformin 500 mg tablet Active 500 MG PO Every evening June 11, 2024 11:04am Start: 04-05-2009 metFORMIN (Glu cophage) 500 mg tablet 1 tablet (500 mg) 2 times daily (morning and late afternoon). 03/27/2024 Active metFORMIN (GLUCO PHAGE) 1,000 mg tablet Take 1,000 mg by mouth. Active End: 11-03-2024 take 0.5 tablet by mouth once daily at breakfast metFORMIN (GLUCOPHAGE) 1000 mg tablet Take 0.5 tablets (500 mg total) by mouth daily with breakfast. 11/03/2024 Discontinued (Therapy completed) Comment on above: as directed Take 1,000 mg by brinda th. TAKE 2 TABLETS EVERY MORNING AND [...] Start : 08-Jan-2021 Complete Start: 04-05-2009 mometasone fur oate(NASONEX 50 MCG/ACTUATION SPRAY) 0 04/05/2009 Active Start: 04-05-2009 mometasone fur oate(NASONEX 50 MCG/ACTUATION SPRAY) take 2 spray(s) nasa l route in the morning mometasone (NASONEX) 50 mcg/actuation nasal spray Administer 2 sprays into each nostril in the morning. Active MV with Ksl-Iitjbveo-Qrgdtk 0.4 mg-300 mcg- 250 mcg tab (8 sources) MV with Min-Lyco pene-Lutein 0.4 mg-300 mcg- 250 mcg tab Take by mouth. Active MV with Min-Lyco pene-Lutein 0.4 mg-300 mcg- 250 mcg tab Take by mouth. 0 Active Comment on above: Take by mouth. olopatadine 1 mg/ml ophthalmic solution (20 sources) Histamine-1 Receptor Inhibitor Start: 08-29-2024 olopatadine [...] DROP TO BOTH EYES TWICE A DAY 2 ml ondansetron 2 mg/ml injection (7 sources) Serotonin-3 Receptor Antagonist Start: 06-12-20 take 4 mg intravenously every eight hours as needed for nausea and vomiting 4 mg, intravenous, Every 8 hours PRN, nausea, vomiting, Starting on Wed06/12/24 at 2317, Administer over 2-5 minutes. Start: 02-14-2021 End: 06-13-2024 take 1 tablet by mouth every eight hours as needed for nausea ondansetron ODT (ZOFRAN ODT) 4 mg disintegrating tablet Dissolve 1 tablet (4 mg total) on tongue every 8 (eight) hours as needed for nausea for up to 10 doses. 10 tablet 08/14/2022 06/13/2024 Discontinued (Stop Taking at Discharge) Start: 02-14-2021 Ondansetron 4 MG Oral Tablet Disintegrating Quantity: 10 Refills: 0 Ordered: 15-Feb-2021 DO Start : 14-Feb-2021 Complete pantoprazole 40 mg delayed release oral tablet (20 sources) Proton Pump Inhibitor Start: 10-10-2024 take 1 tablet by mouth at bedtime pantoprazole (PROTONIX) 40 mg EC tablet Take 1 tablet (40 mg total) by mouth in the morning and at bedtime. 180 tablet 1 10/10/2024 Active Start: 06-13-2024 40 mg, oral, E very morning before breakfast, First dose on Wed06/13/24 at 0700, Look-alike/sound-alike medication - verify indication for use. If patient is receiving enteral feeding, consider alternative PPI or continue IV pantoprazole until the delayed-release tablet can be taken orally, Indication: GERD Start: 05-02-2021 Pantoprazole S odium 40 MG Oral Tablet Delayed Release Quantity: 90 Refills: 0 Ordered: 26-Jun-2021 DO Start : 02-May-2021 Complete Start: 10-21-2020 End: 11-28-2021 take 1 tablet by mouth at bedtime pantoprazole (PROTONIX) 40 mg EC tablet Take 1 tablet (40 mg total) by mouth in the morning and at bedtime. 180 tablet 1 10/10/2024 Active End: 10-10-2024 take 1 tablet by mouth in the morning pantoprazole (PROTONIX) 20 mg EC tablet Take 1 tablet (20 mg total) by mouth in the morning. 10/10/2024 Discontinued Pantoprazole Sod ium Active Comment on above: Take 40 mg by mouth once daily. Potassium Chloride (3 sources) Start: 06-12-2024 potassium chloride (KLOR-CON M 20) CR tablet 30-50 mEq Potassium Chlori de (KLOR-CON 10 PO) Take [...] DAILY Take by mouth. Respiratory Therapy Supplies (NEBULIZER/TUBING/MO UTHPIECE) KIT (6 sources) Start: 05-28-20 21 Respiratory Therapy Supplies (NEBULIZER/TUBING/MO UTHPIECE) KIT 1 kit by Does not apply route 4 times daily 1 kit 0 05/28/2021 Active rosuvastatin calcium 20 mg oral tablet (12 sources) HMG-CoA Reductase Inhibitor Start: 01-08-20 14 take 1 tablet by mouth once daily at bedtime rosuvastatin (CRESTOR) 20 mg tablet Take 1 tablet by mouth daily at bedtime. 0 01/08/2014 Active Comment on above: Take 1 tablet by brinda th daily at bedtime. sod sulf-pot chloride-mag sulf 1.479-0.188- 0.225 gram tablet (5 sources) Start: 11-03-20 24 sod sulf-pot chloride-mag sulf 1.479-0.188- 0.225 gram tablet Indications: Anemia, unspecified type Please see instructional sheet given by physicians office. 24 tablet 11/03/2024 Active 1000 ml sodium chloride 9 mg/ml injection (8 sources) Start: 06-12-20 24 take 20 mL intravenously every hour as needed 20 mL/hr, intravenous, Continuous PRN, to maintain patency of lines, Starting on Wed06/12/24 at 2317 Start: 06-12-2024 take 25 mL intraveno usly every hour as needed 25 mL, intravenous, at 100 mL/hr, Administer over 15 Minutes, As needed, line care, line care after IVPB administration, Starting on Wed06/12/24 at 2317 Start: 06-12-2024 End: 06-12-2024 1,000 mL, intravenous, at 98 4 mL/hr, Administer over 61 Minutes, Once, On Wed06/12/24 at 2205, For 1 dose Start: 06-12-2024 3 mL, intraven ous, As needed, line care, before and after each intermittent use, Starting on Wed06/12/24 at 1914 Start: 03-07-2021 0.9 % sodium c hloride infusion Start: 03-07-2021 sodium chlorid e flush 0.9 % injection 10 mL sodium phosphate 20 mmol in sodium chloride 0.9 % 250 mL IVPB (1 source) Start: 06-12-2024 sodium phospha te 20 mmol in sodium chloride 0.9 % 250 mL IVPB sucralfate 1000 mg oral tablet (20 sources) [...] times daily. tiZANidine 2 mg oral tablet (13 sources) Central alpha-2 Adrenergic Agonist Start: 12-01-2024 take 2 tablets by mouth once daily at bedtime Tizanidine 2 mg tablet Active 4 MG PO Daily at bedtime December 01, 2024 12:00am Start: 04-26-2024 take 1 tablet by brinda th twice daily tiZANidine (Zanaflex) 2 mg tablet Take 1 tablet (2 mg) by mouth twice a day. 04/26/2024 Active take 1 tablet by brinda th at bedtime tiZANidine (ZANAFLEX) 2 mg tablet Take 1 tablet (2 mg total) by mouth in the morning and at bedtime. Active Completed/Discontinued Medications Medication Drug Class(es) Dates Sig (Normalized) Sig (Original) Acetaminophen Extra Strength CAPS (5 sources) Acetaminophen Ex tra Strength CAPS TAKE 2 CAPSULES 4 TIMES DAILY PRN Quantity: 0 Refills: 0 Ordered: 02-Sep-2021 DO Active Albuterol Sulfate 90 mcg/actuation HFA aerosol inhaler (1 source) Start: 12-01-2024 End: 12-19-2024 Albuterol Sulfate 90 mcg/actuation HFA aerosol inhaler Discontinued 2 INH INHALATION EVERY 4-6 HOURS as needed for shortness of breath or wheezing 6.7 December 01, 2024 12:00am December 19, 2024 9:55am Ascensia Autodisc Test (4 sources) Ascensia Autodis c Test Not-Taking/PRN Ascensia Autodis c Test Not-Taking Ascensia Autodis c Test Active azithromycin 250 mg oral tablet (3 sources) Macrolide Antimicrobial Start: 12-01-2024 End: 12-19-2024 Azithromycin 250 mg tablet Discontinued 0 PO .COMPLEX 6 December 01, 2024 12:00am December 19, 2024 9:54am For 250 mg dose pack: take 500 mg today (day 1), then 250 mg for 4 days (days 2-5) PO Start: 2022 azithromycin ( ZITHROMAX) 250 MG tablet Indications: Cough 500mg on day 1 followed by 250mg on days 2 - 5 6 tablet 0 2022 Active bisacodyl 5 mg delayed release oral [...] capsule (20 sources) Nonsteroidal Anti-inflammatory Drug Start: 09-09-2021 End: 06-13-2024 take 1 capsule by mouth in the morning celecoxib (CeleBREX) 200 mg capsule Take 1 capsule by mouth in the morning. 07/06/2022 06/13/2024 Discontinued (Stop Taking at Discharge) Start: 02-05-2021 Celecoxib 200 MG Oral Capsule [...] 04/22/2021 Active take 1 capsule by mo ut twice daily at mealtime CeleBREX 200 MG [...] Esomeprazole Magnesium 20 mg Tablet,Delayed Release (Dr/Ec) (2 sources) Start: 2020 End: 2021 take 1 tablet [...] Ordered: 26-Mar-2021 DO Start : 26-Mar-2021 Complete insulin, regular, human 100 unt/ml injectable solution (1 source) Insulin Start: 2023 End: 2023 10 Units, subcutaneous, Once, On Wed06/12/24 at 2205, For 1 dose, Look-alike/sound-a like medication - verify indication for use. Prandial/supplemen fer insulin. Stable for 28 days at room temperature. iohexol (OMNIPAQUE 180) injection (1 source) Start: 2023 End: 2023 iohexol (OMNIPAQUE 180) injection labetalol hydrochloride 5 mg/ml injectable solution (1 source) beta-Adrenergic Corby Start: 2023 End: 2023 20 mg, intravenous, Once, On Wed06/12/24 at 2310, For 1 dose, For systolic blood pressure greater than 180 mmHg Look-alike/sound-a like medication - verify indication for use. 10 ml lidocaine hydrochloride 10 mg/ml injection (2 sources) Antiarrhythmic, Amide Local Anesthetic Start: 2023 End: 2023 lidocaine PF 1 % injection Start: 03-07-2021 End: 03-07-2021 lidocaine PF 1 % injection 1 mL meclizine hydrochloride 25 mg oral tablet (6 sources) Antiemetic Start: 02-14-2021 End: 06-13-2024 take 1 tablet by mouth three times daily as needed for dizziness meclizine (ANTIVERT) 25 mg tablet Take 1 tablet (25 mg total) by mouth 3 (three) times a day as needed for dizziness. 20 tablet 08/14/2022 06/13/2024 Discontinued (Stop Taking at Discharge) Start: 02-14-2021 Meclizine HCl - 25 MG [...] Ordered: 17-Jun-2021 DO Start : 16-Jun-2021 Complete nnlhwtoc-uoq-RK-lyc open-lutein (CENTRUM SILVER) 0.4 mg-300 mcg- 250 mcg tablet (7 sources) End: 11-03-2024 take 1 tablet by mouth once acxccrln-uuw-HF-ly copen-lutein (CENTRUM SILVER) 0.4 mg-300 mcg- 250 mcg tablet Take by mouth. 11/03/2024 Discontinued (Therapy completed) take 1 tablet by mouth once mult vxjc-fvm-ZV-lycopen-lutein (CENTRUM SILVER) 0.4 mg-300 mcg- 250 mcg tablet Take by mouth. Active take 1 tablet by mouth once mult edbt-ncb-PU-lycopen-lutein (CENTRUM SILVER) 0.4 mg-300 mcg- 250 mcg tablet Take by mouth. Dyhykumlomcg-Ypbvzyyt-Vuombj (Centrum Silver) Tablet (2 sources) Start: 11-28-2021 End: 11-28-2021 take 1 tablet by mouth once daily Sdftukbkmtjt-Dotkrmpb-Bxoxis (Centrum Silver) Tablet Discontinued 1 TAB PO Daily November 28, 2021 12:00am November 28, 2021 10:24am Zigvhjrtuxah-Kwmknrab-Yoyzjb Tablet (2 sources) Start: 11-28-2021 End: 12-01-2024 take 1 tablet by mouth once daily Dnhybhyhqpen-Umevyjyg-Hhjddr Tablet Discontinued 1 TAB PO Daily November 28, 2021 12:00am December 01, 2024 10:44am Start: 11-28-2021 take 1 tablet by brinda th once daily Vmzozmcojeaj-Jicuqrmx-Odxnum Tablet Acti ve 1 TAB PO Daily November 28, 2021 12:00am MV with Sbl-Bgzeawgt-Kvltpf (CENTRUM SILVER) 0.4-300-250 mg-mcg-mcg tab (4 sources) MV with Lrn-Vbwgiugr-Cxrbav (CENTRUM SILVER) 0.4-300-250 mg-mcg-mcg tab Take by mouth. 0 Active Comment on above: Take by mouth. Nasonex 50 MCG/ACT (2 sources) take 2 spray(s) nasal route once daily Nasonex 50 MCG/ACT 2 sprays in each nostril Nasally Once a day for 30 day(s) Not-Taking Nirmatrelvir-Ritonavir (Paxlovid) 300 mg (150 mg x 2)-100 mg tablets,dose pack (2 sources) Start: 06-11-20 End: 12-01-19 Nirmatrelvir-Ritonavir (Paxlovid) 300 mg (150 mg x 2)-100 mg tablets,dose pack Discontinued 0 PO .COMPLEX June 10, 2024 11:00pm December 01, 2024 10:45am take TWO 150 mg tablets of nirmatrelvir with ONE 100 mg tablet of ritonavir twice daily for 5 days PO Start: 06-11-2024 Nirmatrelvir-R itonavir (Paxlovid) 300 mg (150 mg x 2)-100 mg tablets,dose pack Active 0 PO .COMPLEX June 10, 2024 11:00pm take TWO 150 mg tablets of nirmatrelvir with ONE 100 mg tablet of ritonavir twice daily for 5 days PO Oxygen (5 sources) Oxygen 2L AT NIG HT Quantity: 0 Refills: 0 Ordered: 02-Sep-2021 DO Active phenylephrine hydrochloride 25 mg/ml ophthalmic solution (2 sources) alpha-1 Adrenergic Agonist Start: 03-13-2024 End: 03-13-2024 PHENYLephrine 2.5 % 1 Drop (AK-DILATE, THERESA-SYNEPHRINE) Start: 02-19-2022 End: 02-19-2022 PHENYLephrine 2.5 % 1 Drop ( AK-DILATE, THERESA-SYNEPHRINE) polyethylene glycol 3350 71222 mg powder for oral solution (8 sources) Osmotic Laxative Start: 02-24-2021 PEG 3350 17 G M/SCOOP Oral Powder Quantity: 238 Refills: 0 Ordered: 24-Feb-2021 DO Start : 24-Feb-2021 Complete Start: 02-24-2021 End: 03-07-2021 polyethylene glycol (GLYCOLA X) 17 GM/SCOOP powder Follow instructions provided to you from physician's office. 238 g 0 02/24/2021 03/07/2021 Discontinued (Therapy completed) predniSONE 20 mg oral tablet (6 sources) Start: 12-01-2024 End: 12-19-2024 take 1 tablet by mouth twice daily Prednisone 20 mg tablet Discontinued 20 MG PO Twice daily 10 5 December 01, 2024 12:00am December 19, 2024 9:55am Start: 06-13-2024 take 40 mg by mouth once daily at mealtime 40 mg, oral, Daily with breakfast, First dose on Wed06/13/24 at 1445, Look-alike/sound-alike medication - verify indication for use. Food-Drug Interaction Education Required May alter blood glucose or insulin requirements Take/give with food Look-alike/sound-alike medication - verify indication for use. Start: 06-11-2024 End: 12-01-2024 take 2 tablets by mouth once daily at breakfast predniSONE (DELTASONE) 20 mg tablet Take 2 tablets (40 mg total) by mouth daily with breakfast for 5 days. 10 tablet 06/14/2024 06/19/2024 traMADol hydrochloride 50 mg oral tablet (20 sources) Opioid Agonist Start: 02-13-2021 traMADol HCl - 50 MG Oral Tablet Quantity: 46 Refills: 0 Ordered: 25-Feb-2021 DO Start : 13-Feb-2021 Complete Start: 04-05-2009 End: 11-03-2024 tramadol hcl(ULTRAM 50 MG TA B) Take by mouth. 0 04/05/2009 Active Start: [...] IACYL) vitamin b12 2.5 mg sublingual tablet (12 sources) Vitamin B12 Start: 09-09-2021 End: 06-11-2024 take 1 tablet under the tongue once daily Cyanocobalamin (Vitamin B-12) (Vitamin B-12) 2,500 mcg Tablet, Sublingual Discontinued 2500 MCG SUBLINGUAL Daily September 08, 2021 11:00pm June 11, 2024 11:03am End: 11-03-2024 take 1 tablet by mouth in the morning cyanocobalamin (vitamin B-12) 100 MCG tablet Take 1 tablet (100 mcg total) by mouth in the morning. 11/03/2024 Discontinued (Therapy completed) take 0.5 tablet by m outh once daily vitamin B-12 (CYANOCOBALAMIN) 100 MCG tablet Take 0.5 tablets by mouth daily 0 Active Problems Active Problems Problem Classification Problem Date Documented Date Episodic/Chronic Asthma (4 sources) Mild intermittent asthma; Translations: [Mild intermittent asthma, uncomplicated] Chronic Cardiac dysrhythmias (2 sources) Tachycardia, unspecified; Translations: [Tachycardia] Onset: 06-12-20 24 06-12-2024 Episodic Cataract (19 sources) Bilateral pseudophakia; Translations: [Presence of intraocular lens] Onset: 11-03-20 Resolved : 06-09-20 Chronic Chronic obstructive pulmonary disease and bronchiectasis (13 sources) Acute exacerbation of chronic obstructive airways disease; Translations: [Chronic obstructive pulmonary disease with (acute) exacerbation] Onset: 06-13-20 Chronic Chronic obstructive pulmonary disease and bronchiectasis (3 sources) Bronchitis, not specified as acute or chronic; Translations: [Bronchitis] Onset: 04-06-20 Resolved : 04-06-20 Episodic Conduction disorders (9 sources) EKG: right bundle branch block; Translations: [Right bundle branch block] Onset: 07-26-20 Chronic Congestive heart failure; nonhypertensive (3 sources) Heart failure, unspecified; Translations: [Heart failure] Onset: 07-29-2004-07-2023 Chronic Coronary atherosclerosis and other heart disease (9 sources) Coronary artery spasm; Translations: [Other and unspecified angina pectoris] Onset: 08-29-20 Chronic Deficiency and other anemia (2 sources) Anemia; Translations: [Anemia, unspecified] 11-03-2024 Episodic Deficiency and other anemia (1 source) Iron deficiency anemia; Translations: [Other iron deficiency anemias] Episodic Deficiency and other anemia (1 source) Chronic anemia; Translations: [Anemia, unspecified] Episodic Deficiency and other anemia (1 source) Iron deficiency anemia secondary to inadequate dietary iron intake; Translations: [Other iron deficiency anemias] Episodic Deficiency and other anemia (1 source) Anemia, unspecified; Translations: [Anemia, unspecified] Onset: 11-03-20 Episodic Diabetes mellitus without complication (20 sources) Diabetes mellitus; Translations: [Diabetes mellitus without mention of complication, type II or unspecified type, not stated as uncontrolled] Onset: 05-19-20 13 05-19-2013 Chronic Diabetes mellitus without complication (2 sources) Hyperglycemia, unspecified; Translations: [Hyperglycemia] Onset: 06-12-20 24 06-12-2024 Episodic Disorders of lipid metabolism (7 sources) Hyperlipidemia; Translations: [Other and unspecified hyperlipidemia] Onset: 09-07-20 Chronic Esophageal disorders (3 sources) Gastro-esophageal reflux disease without esophagitis; Translations: [Gastroesophageal reflux disease without esophagitis] Onset: 09-07-2004-07-2023 Chronic Esophageal disorders (2 sources) Esophageal disorders; Translations: [GASTROESOPHAGEAL REFLUX DISEASE WITHOUT ESOPHAGITIS] Onset: 12-08-19 Essential hypertension (10 sources) Benign essential hypertension; Translations: [Benign essential hypertension] Onset: 09-07-20 Chronic Genitourinary symptoms and ill-defined conditions (5 sources) Dysuria; Translations: [Dysuria] Onset: 12-19-19 Episodic Headache; including migraine (1 source) Pain in face; Translations: [Left facial pain] Episodic Hypertension with complications and secondary hypertension (5 sources) Hypertensive heart disease with heart failure; Translations: [Hypertensive heart failure] Onset: 07-29-20 22 04-07-2023 Chronic Immunizations and screening for infectious disease (6 sources) Contact with and (suspected) exposure to other viral communicable diseases; Translations: [Encounter for immunization] Onset: 04-06-20 Resolved : 07-25-20 Episodic Inflammation; infection of eye (except that caused by tuberculosis or sexually transmitteddisease) (7 sources) Keratoconjunctivitis sicca; Translations: [Keratoconjunctivitis sicca, not specified as Sjogren's, bilateral] Chronic Nonspecific chest pain (16 sources) Chest pain; Translations: [Chest pain, unspecified] [...] bowel syndrome without diarrhea] 09-06-2017 Chronic Other gastrointestinal disorders (12 sources) Diarrhea; Translations: [Diarrhea, unspecified] Onset: 07-16-2007-16-2016 Episodic Other gastrointestinal disorders (1 source) Diarrhea, unspecified; Translations: [Diarrhea, unspecified] Onset: 11-03-20 Episodic Other nervous system disorders (5 sources) Other [...] metabolic disorders (2 sources) Body mass index 30+ - obesity; Translations: [Body mass index (BMI) 34.0-34.9, adult] Onset: 07-26-2007-26-2024 Chronic Other nutritional; endocrine; and metabolic disorders (1 source) Weight loss; Translations: [Abnormal weight loss] Episodic Other screening for suspected conditions (not mental disorders or infectious disease) (6 sources) Cardiovascular stress test abnormal; Translations: [Other nonspecific abnormal results of function study of cardiovascular system] Onset: 06-12-20 Episodic Other upper respiratory disease (4 sources) Seasonal allergic rhinitis; Translations: [Other seasonal allergic rhinitis] Onset: 07-28-20 23 07-28-2023 Chronic Other upper respiratory disease (1 source) [...] [Unspecified sleep apnea] Chronic Residual codes; unclassified (11 sources) Family history of cancer of colon; Translations: [Family history of malignant neoplasm of digestive organs] Onset: 07-16-20 16 07-16-2016 Episodic Residual codes; unclassified (2 sources) Other specified health status; Translations: [Other specified health status] Onset: 07-26-20 Episodic Residual codes; unclassified (1 source) Family history of malignant neoplasm of digestive organs; Translations: [Family history of malignant neoplasm of digestive organs] Onset: 11-03-20 Episodic Retinal detachments; defects; vascular occlusion; and retinopathy (13 sources) Retinal pigment epithelial abnormality; Translations: [Other [...] of COVID-19] Onset: 07-26-20 Urinary tract infections (6 sources) Lower urinary tract infectious disease; Translations: [UTI (lower urinary tract infection)] 12-19-2024 Episodic Viral infection (1 source) COVID-19; Translations: [COVID-19] Onset: 06-13-20 Past or Other Problems Problem Classification Problem Date Documented Da te Episodic/Chronic Allergic reactions (12 sources) Contact dermatitis; Translations: [Unspecified contact dermatitis, unspecified cause] Onset: 12-20-2008 12-20-2008 Episodic Conditions associated with dizziness or vertigo (4 sources) Dizziness and giddiness; Translations: [DIZZINESS AND GIDDINESS] Onset: 07-25-2022 Episodic Fluid and electrolyte disorders (3 sources) Dehydration; Translations: [Dehydration] Onset: 07-29-2022 Resolved: 05-07-2023 05-07-2023 Episodic Osteoporosis (10 sources) Osteoporosis; Translations: [Age-related osteoporosis without current pathological fracture] Onset: 05-19-2013 Resolved: 04-29-2016 04-29-2016 Chronic Other aftercare (1 source) snf (current) use of aspirin; Translations: [CARE HOME CURRENT USE OF ASPIRIN] Onset: 09-07-2022 Episodic Other aftercare (1 source) [place] [facility] (current[facility] drug therapy; Translations: [OTH CARE HOME CURRENT DRUG THERAPY] Onset: 09-07-2022 Episodic Other aftercare (1 source) manager intermediate (current) use of oral hypoglycemic drugs; Translations: [CARE HOME USE ORAL HYPOGLYCEMIC DX] Onset: 09-07-2022 Episodic Other aftercare (2 sources) Long-term current use of aspirin; Translations: [manager intermediate (current) use of aspirin] Onset: 09-07-2022 04-07-2023 Episodic Other aftercare (2 sources) Long-term current use of oral hypoglycemic medication; Translations: [manager intermediate (current) use of oral hypoglycemic drugs] Onset: 09-07-2022 04-07-2023 Episodic Other aftercare (2 sources) Long-term current use of drug therapy; Translations: [Other [place] [facility] (current) drug therapy] Onset: 09-07-2022 04-07-2023 Episodic [...] Onset: 07-06-2022 04-07-2023 Episodic Other eye disorders (12 sources) Scar of cornea of left eye; Translations: [Unspecified corneal scar and opacity] Onset: 06-09-2019 06-09-2019 Episodic Other infections; including parasitic (2 sources) Personal history of other infectious and parasitic diseases; Translations: [History of COVID-19] Onset: 07-26-2024 07-26-2024 Episodic Other non-traumatic joint disorders (4 sources) Pain in right wrist; Translations: [PAIN IN RIGHT WRIST] Onset: 09-06-2022 Episodic Other non-traumatic joint disorders (2 sources) Pain in right hip joint; Translations: [Pain in right hip] Onset: 02-11-2023 04-07-2023 Episodic Other non-traumatic joint disorders (2 sources) Pain in wrist; Translations: [Pain in unspecified wrist] Onset: 09-06-2022 04-07-2023 Episodic Residual codes; unclassified (1 source) Acquired [...] unspecified; Translations: [Pain, unspecified] Onset: 11-08-2023 Episodic Residual codes; unclassified (2 sources) Never smoked tobacco; Translations: [Other specified health status] Onset: 07-26-2024 07-26-2024 Episodic Spondylosis; intervertebral disc disorders; other back [...] history of COVID-19] Onset: 07-26-2024 Viral infection (20 sources) Disease caused by 2019-nCoV; Translations: [COVID-19] Onset: 06-12-2024 Resolved: 06-13-2024 06-11-2024 Episodic Results Test Name Value Interpretation Reference Range Facility [facility] RICARDOMARAH Alvarez ([id number]) 1950 F Date Time Provider Department 01/06[facility] During your visit today, we recorded the following information about you: Manpreet Membreno MD 01/06/2025 12:40 PM Signed Received page that patient had called. Spoke to them on the phone at 12:36 PM. Patient has a history of chronic allergic conjunctivitis OU. Last seen by Dr. Damon 08/2024 who rx maxitrol gtt TID for 1 week Patient reports she has been using the mixtrol gtt TID since last visit with minimal improvement and is requesting refill since she is out. She reports stable tearing and discharge OU and intermittent sharp pain OS which lasts a few seconds. Denies change in vision or new symptoms since last eye exam. Discussed that the maxtrol was only suppose to be for one week per Dr. Damon's note. Rec PF AFTs 6x daily for now. Rec calling Dr. Damon's office for sooner apt Return precautions given. Discussed that if any significant change in symptoms, worsening vision, pain or new symptoms, please call back or go to the emergency room. Manpreet Membreno MD Ophthalmology Resident Allergies As of Date: 01/06/2025 Noted Allergy Reaction BACTRIM (SULFAMETHOXAZOLE-TR IMETH*12/20/2008 CIPROFLOXACIN 05/19/2013 16 - Unknown IBUPROFEN 12/07/2017 16 - Unknown MORPHINE 12/20/2008 PENICILLINS 12/20/2008 ZYRTEC (CETIRIZINE HCL) 12/20/2008 Date Reviewed: 08/29/2024 Reviewed by: Ava Damon OD - Fully Assessed Prescriptions as of 01/06/2025 - HNCQNQFF-AFKIYRAHS-L EXAMETH 3.5 MG/ML-10,000 UNIT/ML-0.1% EYE DROPS Use [...] by mouth once daily. - MV with Mxo-Qyesktam-Txkojf 0.4 mg-300 mcg- 250 mcg tab Take [...] not seem to be accurate. 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 Normal [facility] Urine Cultureon 12-19-2024 Bacteria identified Cx Nom (U) ORGANISM: Escherichia coli (O:ESCCOL) [place]ro Count >100,000 Aerobic SHERIDAN Charge (NMIC56) ----- SUSCEPTIBILITY ---- ORGANISM: O:ESCCOL ANTIBIOTIC INTERPRETATION SHERIDAN Amikacin S <16 Amoxacillin/K Clavulanate S <8 Ampicillin R >16 Ampicillin/Sulbactam I 1616/8 Aztreonam S <4 Cefazolin S 4 Cefepime S <2 Ceftazidime S <1 Ceftazidime/Avibacta m S <4 Ceftolozane/Tazobact am S <2 Ceftriaxone S <1 Cefuroxime S <4 Ciprofloxacin S <0.25 Ertapenem S <0.5 Gentamicin S <2 Levofloxacin S <0.5 Meropenem S <1 Meropenem/Vaborbacta m S <2 Nitrofurantoin S <32 Piperacillin/Tazobac swartz S <8 Tetracycline S <4 Tigecycline S <2 Tobramycin S <2 Trimethoprim/Sulfame thoxazole R >2 S = SUSCEPTIBLE I = INTERMEDIATE R = RESISTANT BLANK = DATA NOT AVAILABLE, OR DRUG NOT ADVISABLE OR TESTED R* = RESISTANCE DUE TO EXTENDED SPECTRUM BETA-LACTAMASES ESBL = EXTENDED SPECTRUM BETA-LACTAMASE TFG = THYMIDINE-DEPENDENT STRAIN ELOY = BETA-LACTAMASE POSITIVE IB = INDUCIBLE BETA-LACTAMASE. APPEARS IN PLACE OF 'S' WITH SPECIES KNOWN TO POSSESS INDUCIBLE BETA-LACTAMASES. POTENTIALLY THEY MAY BECOME RESISTANT TO ALL B-LACTAM DRUGS. PERFORMED BY: [place] [address] PATHOLOGIST [employer] FEEDER SHERRON HAMILTON M.D. Normal [facility] Comment on above: Performed By: #### C UU #### [address] Influenza virus B Ag [Presen ce] in Upper respiratory specimen by Rapid immunoassayon 12-01-2024 FLUBV Ag IA.rapid Ql (Nph) Influenza virus B Ag [Presence] in Upper respiratory specimen by Rapid immunoassay [facility] No Panel Informationon 12-01 Influenza Type A (Rapid) Negative [facility] POC SARS CoV-2 Antigen Negative [facility] CBC auto differentialOrdered By: Mony Paula on 10-12-2024 External % Basophils 0.4 [facility] External Absolute Basophil 0 [facility] External Absolute Monocytes 0.6 [facility] External Absolute Neutrophils 4.7 [facility] External Hematocrit Hct 8.3 [facility] External Hemoglobin 9.7 [facility] External Lymphocyte, Atypical 32.3 [facility] External MCH 30.3 [facility] External Mchc 32.1 [facility] External [...] By: Zoya Castillo on 10-04-2024 Pathology study [facility] Other Schuyler 09-30-2024 L Specimen: [id number] Received: 10/02/24 Status: ALYSSASteve Hartman Num: [id number] Spec Type: Surgical Subm Dr: Gabriela Villatoro,DO Tissues: A Stomach - Biopsy/Polyp (SUPERFICIAL ULCER FROM CARDI) B Stomach - Biopsy/Polyp (GE JUNCTION) Procedures: PAS - LGRN, HE/4, Gross/Micro L4/2, PAS-Alcian Blue/2 Age/ Patient Sex Location Account Attending Physician Marah Silva Cindi 74/F [place] [id number] Gabriela Villatoro,DO SPEC NUM: [id number] RECD: 10/02/24 STATUS: ERIN MCKEONEmy NUM: [id number] MARLON: 09/30/[address] [facility] [address]: Gabriela Villatoro DO ENTERED: 10/02/24 [facility] DR: Sushila,Lab SPEC TYPE: Surgical DEPT: OSORIO KEN ENTERED BY: [id number] RECV BY: [id number] ORDERED: PAS - LGRN, HE/4, Gross/Micro L4/2, [...] submitted in a single cassette. (1, ns, [id number]) SCOTT Specimen: [id number] Received: 10/02/24 Status: ERIN Hartman Num: [id number] Spec Type: Surgical Subm Dr: Gabriela Villatoro DO Tissues: A Stomach - Biopsy/Polyp (SUPERFICIAL ULCER FROM CARDI) B Stomach - Biopsy/Polyp (GE JUNCTION) Procedures: PAS - LGRN, HE/4, Gross/Micro L4/2, PAS-Alcian Blue/2 Patient: Marah Silva [id number] (Continued) Specimen: [id number] Received: 10/02/24 (Continued) Gross Description (Continued) Signed (signature on file) Zoya Castillo MD 10/04/24 1826 Specimen: [id number] Received: 10/02/24 Status: ERIN Hartman Num: [id number] Spec Type: Surgical Subm Dr: Gabriela Villatoro DO Tissues: A Stomach - Biopsy/Polyp (SUPERFICIAL ULCER FROM CARDI) B Stomach - Biopsy/Polyp (GE JUNCTION) Procedures: PAS - LGRN, HE/4, Gross/Micro L4/2, PAS-Alcian Blue/2 Patient: Marah Silva [id number] (Continued) Specimen: [id number] Received: 10/02/24 (Continued) Gross Description (Continued) Part B is received in formalin labeled with the patients name and GE junction are 6 pale gomez, feathery, 0.2 to 0.3 cm in greatest dimension tissue bits. The specimen is entirely submitted in a single cassette. (1, chago, [id number] B) KaleighG Microscopic Description Microscopic examinations are performed supporting the above interpretation CPT Codes 15494u4 98645 [id number] Specimen: [id number] Received: 10/02/24 Status: ERIN Hartman Num: [id number] Spec Type: Surgical Subm Dr: Gabriela Villatoro DO Tissues: A Stomach - Biopsy/Polyp (SUPERFICIAL ULCER FROM CARDI) B Stomach - Biopsy/Polyp (GE JUNCTION) Procedures: PAS - LGRN, HE/4, Gross/Micro L4/2, PAS-Alcian Blue/2 Patient: Marah Silva [id number] (Continued) Signed (signature on file) (more content not included)... Normal [facility] Surgical PathologyOrdered By : Mony Paula on [facility]-2024 [facility] MARAH [facility]VA ([id number]) 1950 F Date Time Provider Department 09/28/24 AVA DAMON OPHTLN During your visit today, we recorded the following information about you: Astrid Latham 09/28/2024 8:58 AM Signed Pt is requesting a new eye drop prescription or another alternative due to the rx that was given being to expensive. Pt states they are 25 dollars and too much. Would like something else. Would like something sent to [facility] in [place] on [address] Astrid Latham 09/28/2024 2:54 [...] Problem [65] Prescriptions as of 09/28/2024 - AKVPMULA-NZUPFMPDK-Z EXAMETH 3.5 MG/ML-10,000 UNIT/ML-0.1% EYE DROPS Use [...] by mouth once daily. - MV with Iss-Xshaarkz-Lcsnle 0.4 mg-300 mcg- 250 mcg tab Take [...] not seem to be accurate. 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 Encounter Status:Closed by ASTRID LATHAM on 09/28/24 Normal [facility] ECG 12 Leadon 07-26-2024 Normal sinus rhythm, right bundle branch block [facility] Work Phone: CBC AND AUTO DIFFon 06-13-20 ABSOLUTE BASOPHIL 0.0 X10E9/L Normal 0.0-0.2 [facility] Comment on above: Performed By: #### C JAMES, 13090-4, CMP, 17738-3, 66624-7 #### [facility] ([id number]) [address] [place] [address] 56954 ABSOLUTE NEUTROPHIL 7.1 X10E9/L High 1.5-6.6 [facility] Comment on above: Performed By: #### Siria RAMIREZ, 32001-5, CMP, 53873-4, 71291-8 #### [facility] ([id number]) [address] [place] [address] 93524 Basophils/100 WBC (Bld) 0.2 % Normal [facility] Comment on above: Performed By: #### Siria RAMIREZ, 13749-0, CMP, 86414-0, 02081-1 #### [facility] ([id number]) [address] [place] [address] 06981 Eosinophils (Bld) [#/Vol] 0.0 10*3/uL Normal 0.0-0.4 [facility] Comment on above: Performed By: #### Siria RAMIREZ, 81013-7, CMP, 89177-5, 15946-1 #### [facility] ([id number]) [address] [place] [address] 58766 Eosinophils/100 WBC (Bld) 0.0 % Normal [facility] Comment on above: Performed By: #### Siria RAMIREZ, 44040-6, CMP, 88426-2, 72541-9 #### [facility] ([id number]) [address] [place] [address] 52661 Erythrocyte distribution width (RBC) [Ratio] 16.0 % High 11.5-15.0 [facility] Comment on above: Performed By: #### Siria RAMIREZ, 87012-7, CMP, 50636-9, 43526-9 #### [facility] ([id number]) [address] [place] [address] 10494 Hematocrit (Bld) [Volume fraction] 30.8 % Low 35-47 [facility] Comment on above: Performed By: #### C JAMES, 13177-4, CMP, 96019-6, 46113-3 #### [facility] ([id number]) [address] [place] [address] 99169 Hemoglobin (Bld) [Mass/Vol] 10.3 g/dL Low 11.7-15.5 [facility] Comment on above: Performed By: #### Siria RAMIREZ, 70116-2, CMP, 99418-5, 58480-9 #### [facility] ([id number]) [address] [place] [address] 60885 Lymphocytes (Bld) [#/Vol] 1.0 10*3/uL Normal 1.0-3.5 [facility] Comment on above: Performed By: #### Siria RAMIREZ, 58329-2, CMP, 35278-5, 50585-3 #### [facility] ([id number]) [address] [place] [address] 30076 Lymphocytes/100 WBC (Bld) 12.1 % Normal [facility] Comment on above: Performed By: #### Siria RAMIREZ, 77792-1, CMP, 05931-8, 65511-7 #### [facility] ([id number]) [address] [place] [address] 04013 MCH (RBC) [Entitic mass] 29.9 pg Normal 27-34 [facility] Comment on above: Performed By: #### Siria RAMIREZ, 13689-8, CMP, 91928-6, 29130-9 #### [facility] ([id number]) [address] [place] [address] 53891 MCHC (RBC) [Mass/Vol] 33.4 g/dL Normal 32-36 [facility] Comment on above: Performed By: #### Siria RAMIREZ, 18340-1, CMP, 28795-1, 47850-8 #### [facility] ([id number]) [address] [place] [address] 84102 MCV (RBC) [Entitic vol] 90 fL Normal 80-100 [facility] Comment on above: Performed By: #### Siria RAMIREZ, 02992-7, CMP, 91593-3, 94857-9 #### [facility] ([id number]) [address] [place] [address] 20288 Monocytes (Bld) [#/Vol] 0.4 10*3/uL Normal 0-0.9 [facility] Comment on above: Performed By: #### Siria RAMIREZ, 80514-4, CMP, 91383-3, 33479-1 #### [facility] ([id number]) [address] [place] [address] 38252 Monocytes/100 WBC (Bld) 4.8 % Normal [facility] Comment on above: Performed By: #### Siria RAMIREZ, 20193-7, CMP, 51783-0, 60544-7 #### [facility] ([id number]) [address] [place] [address] 78834 Neutrophils/100 WBC (Bld) 82.9 % Normal [facility] Comment on above: Performed By: #### Siria RAMIREZ, 10843-4, CMP, 31594-8, 50366-2 #### [facility] ([id number]) [address] [place] [address] 16849 Platelet mean volume (Bld) [Entitic vol] 8.0 fL Normal 7-12 [facility] Comment on above: Performed By: #### Siria RAMIREZ, 65223-8, CMP, 88968-9, 82453-5 #### [facility] ([id number]) [address] [place] [address] 92664 Platelets (Bld) [#/Vol] 200 10*3/uL Normal 150-450 [facility] Comment on above: Performed By: #### C JAMES, 43519-7, CMP, 38769-4, 88282-1 #### [facility] ([id number]) [address] [place] [address] 89689 RBC COUNT 3.43 X10E12/L Low 3.80-5.20 [facility] Comment on above: Performed By: #### C JAMES, 99185-8, CMP, 37505-3, 48288-1 #### [facility] ([id number]) [address] [place] [address] 92232 WBC (Bld) [#/Vol] 8.5 10*3/uL Normal 4.0-11.0 [facility] Comment on above: Performed By: #### Siria RAMIREZ, 51897-8, [facility], 80378-7, 80779-6 #### [facility] ([id number]) [address] [place] [address] 59063 CBC auto differentialon 05-23 Basophils (Bld) [#/Vol] 0.0 10*3/uL [facility] Basophils/100 WBC (Bld) 0.2 % [facility] Eosinophils (Bld) [#/Vol] 0.0 10*3/uL [facility] Eosinophils/100 WBC (Bld) 0.0 % [facility] Erythrocyte distribution width (RBC) [Ratio] 16.0 % High 11.5 - 15.0 % [facility] Hematocrit (Bld) [Volume fraction] 30.8 % Low 35 - 47 % [facility] Hemoglobin (Bld) [Mass/Vol] 10.3 g/dL Low 11.7 - 15.5 g/dL [facility] Interpretation and review of laboratory results Abnormal [facility] Lymphocytes (Bld) [#/Vol] 1.0 10*3/uL [facility] Lymphocytes/100 WBC (Bld) 12.1 % [facility] MCH (RBC) [Entitic mass] 29.9 pg 27 - 34 pg [facility] MCHC (RBC) [Mass/Vol] 33.4 g/dL 32 - 36 g/dL [facility] MCV (RBC) [Entitic vol] 90 fL 80 - 100 fL [facility] Monocytes (Bld) [#/Vol] 0.4 10*3/uL [facility] Monocytes/100 WBC (Bld) 4.8 % [facility] Neutrophils (Bld) [#/Vol] 7.1 10*3/uL High [facility] Neutrophils/100 WBC (Bld) 82.9 % [facility] Platelet mean volume (Bld) [Entitic vol] 8.0 fL 7 - 12 fL [facility] Platelets (Bld) [#/Vol] 200 10*3/uL [facility] RBC (Bld) [#/Vol] 3.43 10*6/uL Low [facility] WBC corrected for nucl RBC Auto (Bld) [#/Vol] 8.5 [facility] COMPREHENSIVE METABOLIC PANE Schuyler 06-13-2024 Albumin [Mass/Vol] 3.4 g/dL Normal 3.2-5.3 [facility] Comment on above: Performed By: #### C BCA, 65499-9, CMP, 78579-3, 63927-5 #### [facility] ([id number]) [address] [place] [address] 32233 ALP [Catalytic activity/Vol] 69 U/L Normal 39-130 [facility] Comment on above: Performed By: #### C BCA, 78994-6, CMP, 19242-1, 05109-4 #### [facility] ([id number]) [address] [place] [address] 74933 ALT [Catalytic activity/Vol] 34 U/L High 0-31 [facility] Comment on above: Performed By: #### C BCA, 35883-1, CMP, 20762-4, 90962-6 #### [facility] ([id number]) [address] [place] [address] 78438 Anion gap [Moles/Vol] 8 mmol/L Normal 5-15 [facility] Comment on above: Performed By: #### C BCA, 78420-5, CMP, 72542-8, 53286-2 #### [facility] ([id number]) [address] [place] [address] 97184 AST [Catalytic activity/Vol] 31 U/L Normal 0-41 [facility] Comment on above: Performed By: #### C BCA, 87589-0, CMP, 66425-0, 10652-1 #### [facility] ([id number]) [address] [place] [address] 49165 Bilirubin [Mass/Vol] 0.3 mg/dL Normal 0.3-1.2 [facility] Comment on above: Performed By: #### C BCA, 03616-7, CMP, 78031-0, 90355-0 #### [facility] ([id number]) [address] [place] [address] 06506 Calcium [Mass/Vol] 8.5 mg/dL Normal 8.5-10.5 [facility] Comment on above: Performed By: #### C BCA, 61053-9, CMP, 52616-0, 29603-8 #### [facility] ([id number]) [address] [place] [address] 78679 Chloride [Moles/Vol] 107 mmol/L Normal 98-109 [facility] Comment on above: Performed By: #### C BCA, 97045-4, CMP, 92536-0, 60322-0 #### [facility] ([id number]) [address] [place] [address] 02399 CO2 [Moles/Vol] 21 mmol/L Low 22-32 [facility] Comment on above: Performed By: #### C BCA, 15710-2, CMP, 75768-3, 55918-8 #### [facility] ([id number]) [address] [place] [address] 51653 Creatinine [Mass/Vol] 0.62 mg/dL Normal 0.40-1.00 [facility] Comment on above: Result Comment: METH OD TRACEABLE TO IDMS STANDARD Performed By: #### C BCA, 57744-2, CMP, 92700-1, 56982-3 #### [facility] ([id number]) [address] [place] [address] 37277 eGFR (CKD-EPI) NON-RACE DEPENDENT >90 Normal >59 [facility] Comment on above: Result Comment: Reported eGFR is based on the CKD-EPI 2020 equation that does not use a race coefficient. Performed By: #### C BCA, 11554-3, CMP, 97593-8, 32553-4 #### [facility] ([id number]) [address] [place] [address] 11164 Glucose [Mass/Vol] 159 mg/dL High 65-99 [facility] Comment on above: Performed By: #### C BCA, 26173-5, CMP, 84470-9, 13819-8 #### [facility] ([id number]) [address] [place] [address] 50020 Potassium [Moles/Vol] 3.8 mmol/L Normal 3.5-5.0 [facility] Comment on above: Performed By: #### C BCA, 02034-6, CMP, 20433-7, 33805-3 #### [facility] ([id number]) [address] [place] [address] 20525 Protein [Mass/Vol] 6.3 g/dL Normal 6.0-8.0 [facility] Comment on above: Performed By: #### C BCA, 92847-9, CMP, 68316-5, 07036-3 #### [facility] ([id number]) [address] [place] [address], [place] [address] Sodium [Moles/Vol] 136 mmol/L Normal 134-146 [facility] Comment on above: Performed By: #### C BCA, 68977-1, CMP, 36550-7, 31052-9 #### [facility] ([id number]) [address] [place] [address] 54133 Urea nitrogen [Mass/Vol] 17 mg/dL Normal 5-27 [facility] Comment on above: Performed By: #### C BCA, 77496-1, CMP, 87531-2, 03128-6 #### [facility] ([id number]) [address] [place] [address] 00429 Comprehensive metabolic pane schuyler 06-13-2024 Albumin [Mass/Vol] 3.4 g/dL 3.2 - 5.3 g/dL [facility] ALP [Catalytic activity/Vol] 69 U/L 39 - 130 U/L [facility] ALT No additional P-5'-P [Catalytic activity/Vol] 34 U/L High 0 - 31 U/L [facility] Anion gap [Moles/Vol] 8 mmol/L 5 - 15 mmol/L [facility] AST [Catalytic activity/Vol] 31 U/L 0 - 41 U/L [facility] Bilirubin [Mass/Vol] 0.3 mg/dL 0.3 - 1 .2 mg/dL [facility] Calcium [Mass/Vol] 8.5 mg/dL 8.5 - 10. 5 mg/dL [facility] Chloride [Moles/Vol] 107 mmol/L 98 - 10 9 mmol/L [facility] CO2 [Moles/Vol] 21 mmol/L Low 22 - 32 mmol/L [facility] Creatinine [Mass/Vol] 0.62 mg/dL 0.40 - 1.00 mg/dL [facility] Comment on above: METHOD TRACEABLE TO IDMS STANDARD eGFR (CKD-EPI)non-race dependent - PINF [facility] Comment on above: Reported eGFR is based on the CKD-EPI 2020 equation that does not use a race coefficient. Glucose [Mass/Vol] 159 mg/dL High 65 - 99 mg/dL [facility] Potassium [Moles/Vol] 3.8 mmol/L 3.5 - 5.0 mmol/L [facility] Protein [Mass/Vol] 6.3 g/dL 6.0 - 8.0 g/dL [facility] Sodium [Moles/Vol] 136 mmol/L 134 - 146 mmol/L [facility] Urea nitrogen [Mass/Vol] 17 mg/dL 5 - 27 mg/dL [facility] Glucose Glucometer (BldC) [M ass/Vol]on 06-13-2024 Glucose [Mass/Vol] 233 mg/dL High 65 - 99 mg/dL [facility] [facility] Interpretation and review of laboratory results Abnormal [facility] Glucose [Mass/Vol] 233 mg/dL High 65-99 [facility] Glucose [Mass/Vol] 268 mg/dL High 65-99 [facility] Glucose [Mass/Vol] 153 mg/dL High 65 - 99 mg/dL [facility] Interpretation and review of laboratory results Abnormal [facility] Glucose [Mass/Vol] 153 mg/dL High 65-99 [facility] Glucose [Mass/Vol] 276 mg/dL High 65 - 99 mg/dL [facility] Interpretation and review of laboratory results Abnormal [facility] Glucose [Mass/Vol] 276 mg/dL High 65-99 [facility] MAGNESIUMon 06-13-2024 Magnesium [Mass/Vol] 1.5 mg/dL Low 1.8-2.6 [facility] Comment on above: Performed By: #### C JAMES, 56424-5, [facility], 28095-2, 18932-1 #### [facility] ([id number]) [address] [place] [address] [place] [address] Magnesiumon 06-13-2024 Magnesium [Mass/Vol] 1.5 mg/dL Low 1.8 - 2 .6 mg/dL [facility] No Panel Informationon 06-13 Interpretation and review of laboratory results Abnormal [facility] Troponin I, High Sensitivity on 06-13-2024 Troponin I.cardiac High sensitivity method [Mass/Vol] 116 ng/L High NINF - 16 ng/L [facility] Comment on above: Elevations of hs-Troponin may be due to causes other than myocardial ischemia. Recommend serial hs-Troponin testing be performed. For the initial evaluation and management of chest pain patients, refer to the algorithms linked below. Emergency Patient: [email or web address]& uh=acaea Inpatient: [email or web address]& uh=acaea Troponin I, High Sensitivity 1 Houron 06-13-2024 Troponin I.cardiac High sensitivity method [Mass/Vol] 116 ng/L High NINF - 16 ng/L [facility] Comment on above: Elevations of hs-Troponin may be due to causes other than myocardial ischemia. Recommend serial hs-Troponin testing be performed. For the initial evaluation and management of chest pain patients, refer to the algorithms linked below. Emergency Patient: [email or web address]& uh=acaea Inpatient: [email or web address]& uh=acaea Troponin I, High Sensitivity 3 Houron 06-13-2024 Troponin I.cardiac High sensitivity method [Mass/Vol] 100 ng/L High NINF - 16 ng/L [facility] Comment on above: Elevations of hs-Troponin may be due to causes other than myocardial ischemia. Recommend serial hs-Troponin testing be performed. For the initial evaluation and management of chest pain patients, refer to the algorithms linked below. Emergency Patient: [email or web address]& uh=acaea Inpatient: [email or web address]& uh=acaea Troponin I.cardiac High sens itivity method [Mass/Vol]on 06-13-2024 Interpretation and review of laboratory results Abnormal [facility] [employer] [facility] 3 HOUR TROP I, HIGH SENSITIVITY 100 ng/L High <16 [facility] Comment on above: Result Comment: Elevations of hs-Troponin may be due to causes other than myocardial ischemia. Recommend serial hs-Troponin testing be performed. For the initial evaluation and management of chest pain patients, refer to the algorithms linked below. Emergency Patient: [email or web address]& uh=acaea Inpatient: [email or web address]& uh=acaea Performed By: #### C BCA, 72397-3, CMP, 66594-4, 03958-6 #### [facility] ([id number]) [address] [place] [address] Interpretation and review of laboratory results Abnormal [facility] 1 HOUR TROP I, HIGH SENSITIVITY 116 ng/L High <16 [facility] Comment on above: Result Comment: Elevations of hs-Troponin may be due to causes other than myocardial ischemia. Recommend serial hs-Troponin testing be performed. For the initial evaluation and management of chest pain patients, refer to the algorithms linked below. Emergency Patient: [email or web address]& uh=acaea Inpatient: [email or web address]& uh=acaea Performed By: #### C BCA, 27843-0, CMP, 25633-7, 97123-2 #### [facility] ([id number]) [address] [place] [address] Interpretation and review of laboratory results Abnormal [facility] TROPONIN I, HIGH SENSITIVITY 116 ng/L High <16 [facility] Comment on above: Result Comment: Elevations of hs-Troponin may be due to causes other than myocardial ischemia. Recommend serial hs-Troponin testing be performed. For the initial evaluation and management of chest pain patients, refer to the algorithms linked below. Emergency Patient: [email or web address]& uh=acaea Inpatient: [email or web address]& uh=acaea Performed By: #### C BCA, 00035-4, CMP, 59851-4, 09985-3 #### [facility] ([id number]) [address] [place] [address] 56979 Acetone, (BetaHydroxybutyrat e, Ketone) quantitative, serumon 06-12-2024 Beta hydroxybutyrate [Moles/Vol] 0.20 mmol/L 0.02 - 0.27 mmol/L [facility] Beta hydroxybutyrate [Moles/ Vol]on 06-12-2024 [facility] BetaHydroxybutyrate 0.20 mmol/L Normal 0.02-0.27 [facility] Comment on above: Performed By: #### 6 873-4, 24100-3, 75584-5 #### [facility] ([id number]) [address] [place] [address] 90715 Blood gas, venouson 06-12-20 24 Arterial patency Wrist artery --pre arterial puncture [facility] Base deficit (Bld) [Moles/Vol] 9.0 mmol/L High [facility] CO2 (BldV) [Partial pressure] 30.0 mm[Hg] Low [facility] HCO3 (Bld) [Moles/Vol] 16.0 mmol/L Low [facility] Interpretation and review of laboratory results Abnormal [facility] Oxygen (BldV) [Partial pressure] 33 mm[Hg] [facility] Oxygen therapy source and amount [CARE] RoomAir [facility] pH (BldV) 7.334 [pH] 7.320 - 7.420 [facility] SaO2% Calculated from oxygen partial pressure (BldV) [Mass fraction] 60.0 % Low 80.0 - PINF % [facility] Specimen site Narrative N/A [facility] Specimen type Nom (Spec) VENOUS [facility] CBC AND AUTO DIFFon 06-12-20 ABSOLUTE BASOPHIL 0.0 X10E9/L Normal 0.0-0.2 [facility] Comment on above: Performed By: #### C JAMES, 82397-7, CMP, 81300-7, 55489-9 #### [facility] ([id number]) [address] [place] [address] 20999 ABSOLUTE NEUTROPHIL 5.7 X10E9/L Normal 1.5-6.6 [facility] Comment on above: Performed By: #### Siria RAMIREZ, 22594-0, CMP, 78611-2, 18454-5 #### [facility] ([id number]) [address] [place] [address] 28541 Basophils/100 WBC (Bld) 0.1 % Normal [facility] Comment on above: Performed By: #### Siria RAMIREZ, 69279-5, CMP, 64144-8, 22350-4 #### [facility] ([id number]) [address] [place] [address] 74841 Eosinophils (Bld) [#/Vol] 0.0 10*3/uL Normal 0.0-0.4 [facility] Comment on above: Performed By: #### Siria RAMIREZ, 64327-4, CMP, 33574-2, 92550-9 #### [facility] ([id number]) [address] [place] [address], [place] [address] Eosinophils/100 WBC (Bld) 0.0 % Normal [facility] Comment on above: Performed By: #### Siria RAMIREZ, 89078-0, CMP, 27939-4, 30451-7 #### [facility] ([id number]) [address] [place] [address] 76147 Erythrocyte distribution width (RBC) [Ratio] 16.2 % High 11.5-15.0 [facility] Comment on above: Performed By: #### Siria RAMIREZ, 35622-1, CMP, 36085-3, 62261-5 #### [facility] ([id number]) [address] [place] [address] 99265 Hematocrit (Bld) [Volume fraction] 32.5 % Low 35-47 [facility] Comment on above: Performed By: #### Siria RAMIREZ, 85252-9, CMP, 13287-7, 33900-8 #### [facility] ([id number]) [address] [place] [address] 74401 Hemoglobin (Bld) [Mass/Vol] 10.7 g/dL Low 11.7-15.5 [facility] Comment on above: Performed By: #### Siria RAMIREZ, 44760-8, CMP, 80447-2, 82515-6 #### [facility] ([id number]) [address] [place] [address] 08447 Lymphocytes (Bld) [#/Vol] 0.6 10*3/uL Low 1.0-3.5 [facility] Comment on above: Performed By: #### Siria RAMIREZ, 96543-3, CMP, 93910-0, 87057-7 #### [facility] ([id number]) [address] [place] [address] 57378 Lymphocytes/100 WBC (Bld) 8.7 % Normal [facility] Comment on above: Performed By: #### Siria RAMIREZ, 87258-9, CMP, 82834-9, 25764-4 #### [facility] ([id number]) [address] [place] [address] 71674 MCH (RBC) [Entitic mass] 29.6 pg Normal 27-34 [facility] Comment on above: Performed By: #### Siria RAMIREZ, 69220-8, CMP, 53376-9, 73171-7 #### [facility] ([id number]) [address] [place] [address] 29132 MCHC (RBC) [Mass/Vol] 32.9 g/dL Normal 32-36 [facility] Comment on above: Performed By: #### Siria RAMIREZ, 44602-5, CMP, 60203-1, 71825-1 #### [facility] ([id number]) [address] [place] [address] 97629 MCV (RBC) [Entitic vol] 90 fL Normal 80-100 [facility] Comment on above: Performed By: #### Siria RAMIREZ, 97271-5, CMP, 68147-6, 74958-2 #### [facility] ([id number]) [address] [place] [address] 05929 Monocytes (Bld) [#/Vol] 0.2 10*3/uL Normal 0-0.9 [facility] Comment on above: Performed By: #### Siria RAMIREZ, 88149-9, CMP, 17553-2, 56409-3 #### [facility] ([id number]) [address] [place] [address] 52535 Monocytes/100 WBC (Bld) 3.3 % Normal [facility] Comment on above: Performed By: #### Siria RAMIREZ, 91145-4, CMP, 08121-4, 94588-6 #### [facility] ([id number]) [address] [place] [address] 15377 Neutrophils/100 WBC (Bld) 87.9 % Normal [facility] Comment on above: Performed By: #### Siria RAMIREZ, 78184-8, CMP, 94004-4, 03886-7 #### [facility] ([id number]) [address] [place] [address] 91895 Platelet mean volume (Bld) [Entitic vol] 7.7 fL Normal 7-12 [facility] Comment on above: Performed By: #### Siria RAMIREZ, 53469-5, CMP, 37801-1, 12551-4 #### [facility] ([id number]) [address] [place] [address] 05402 Platelets (Bld) [#/Vol] 212 10*3/uL Normal 150-450 [facility] Comment on above: Performed By: #### Siria RAMIREZ, 68369-5, CMP, 83211-0, 64829-4 #### [facility] ([id number]) [address] [place] [address] 49530 RBC COUNT 3.62 X10E12/L Low 3.80-5.20 [facility] Comment on above: Performed By: #### Siria RAMIREZ, 86954-0, CMP, 42793-3, 48806-6 #### [facility] ([id number]) [address] [place] [address] 72362 WBC (Bld) [#/Vol] 6.4 10*3/uL Normal 4.0-11.0 [facility] Comment on above: Performed By: #### Siria RAMIREZ, 83119-0, CMP, 97016-2, 85876-8 #### [facility] ([id number]) [address] [place] [address] 91642 CBC auto differentialon 05-23 Basophils (Bld) [#/Vol] 0.0 10*3/uL [facility] Basophils/100 WBC (Bld) 0.1 % [facility] Eosinophils (Bld) [#/Vol] 0.0 10*3/uL [facility] Eosinophils/100 WBC (Bld) 0.0 % [facility] Erythrocyte distribution width (RBC) [Ratio] 16.2 % High 11.5 - 15.0 % [facility] Hematocrit (Bld) [Volume fraction] 32.5 % Low 35 - 47 % [facility] Hemoglobin (Bld) [Mass/Vol] 10.7 g/dL Low 11.7 - 15.5 g/dL [facility] Interpretation and review of laboratory results Abnormal [facility] Lymphocytes (Bld) [#/Vol] 0.6 10*3/uL Low [facility] Lymphocytes/100 WBC (Bld) 8.7 % [facility] MCH (RBC) [Entitic mass] 29.6 pg 27 - 34 pg [facility] MCHC (RBC) [Mass/Vol] 32.9 g/dL 32 - 36 g/dL [facility] MCV (RBC) [Entitic vol] 90 fL 80 - 100 fL [facility] Monocytes (Bld) [#/Vol] 0.2 10*3/uL [facility] Monocytes/100 WBC (Bld) 3.3 % [facility] Neutrophils (Bld) [#/Vol] 5.7 10*3/uL [facility] Neutrophils/100 WBC (Bld) 87.9 % [facility] Platelet mean volume (Bld) [Entitic vol] 7.7 fL 7 - 12 fL [facility] Platelets (Bld) [#/Vol] 212 10*3/uL [facility] RBC (Bld) [#/Vol] 3.62 10*6/uL Low [facility] WBC corrected for nucl RBC Auto (Bld) [#/Vol] 6.4 [facility] COMPREHENSIVE METABOLIC PANE Schuyler 06-12-2024 Albumin [Mass/Vol] 3.8 g/dL Normal 3.2-5.3 [facility] Comment on above: Performed By: #### C BCA, 50780-6, CMP, 62839-0, 43383-4 #### [facility] ([id number]) [address] [place] [address] 44803 ALP [Catalytic activity/Vol] 78 U/L Normal 39-130 [facility] Comment on above: Performed By: #### C BCA, 00942-8, CMP, 98664-3, 84337-1 #### [facility] ([id number]) [address] [place] [address] 18269 ALT [Catalytic activity/Vol] 30 U/L Normal 0-31 [facility] Comment on above: Performed By: #### C BCA, 16996-1, CMP, 25567-0, 47077-7 #### [facility] ([id number]) [address] [place] [address] 96213 Anion gap [Moles/Vol] 16 mmol/L High 5-15 [facility] Comment on above: Performed By: #### C BCA, 26176-0, CMP, 39537-0, 08386-3 #### [facility] ([id number]) [address] [place] [address] 85092 AST [Catalytic activity/Vol] 31 U/L Normal 0-41 [facility] Comment on above: Performed By: #### C BCA, 24169-3, CMP, 25152-9, 59881-7 #### [facility] ([id number]) [address] [place] [address] 98074 Bilirubin [Mass/Vol] 0.2 mg/dL Low 0.3-1.2 [facility] Comment on above: Performed By: #### C BCA, 10185-2, CMP, 32386-8, 85904-6 #### [facility] ([id number]) [address] [place] [address] 74713 Calcium [Mass/Vol] 9.0 mg/dL Normal 8.5-10.5 [facility] Comment on above: Performed By: #### C BCA, 25927-8, CMP, 38797-3, 74299-6 #### [facility] ([id number]) [address] [place] [address] 29536 Chloride [Moles/Vol] 103 mmol/L Normal 98-109 [facility] Comment on above: Performed By: #### C BCA, 22387-1, CMP, 58183-1, 24646-1 #### [facility] ([id number]) [address] [place] [address] 06688 CO2 [Moles/Vol] 15 mmol/L Low 22-32 [facility] Comment on above: Performed By: #### C BCA, 27526-7, CMP, 59827-1, 31119-0 #### [facility] ([id number]) [address] [place] [address] 22659 Creatinine [Mass/Vol] 0.92 mg/dL Normal 0.40-1.00 [facility] Comment on above: Result Comment: METH OD TRACEABLE TO IDMS STANDARD Performed By: #### C JAMES, 96994-1, CMP, 25936-8, 25961-9 #### [facility] ([id number]) [address] [place] [address] 26722 GFR/1.73 sq M.predicted among non-blacks MDRD (S/P/Bld) [Vol rate/Area] 65 mL/min/{1.73_m2} Normal >59 [facility] Comment on above: Result Comment: Reported eGFR is based on the CKD-EPI 2020 equation that does not use a race coefficient. Performed By: #### C BCA, 89836-1, CMP, 20434-4, 46848-3 #### [facility] ([id number]) [address] [place] [address] 21174 Glucose [Mass/Vol] 362 mg/dL High 65-99 [facility] Comment on above: Performed By: #### C BCA, 62559-2, CMP, 28791-7, 12697-6 #### [facility] ([id number]) [address] [place] [address] 60635 Potassium [Moles/Vol] 3.7 mmol/L Normal 3.5-5.0 [facility] Comment on above: Performed By: #### C BCA, 15322-6, CMP, 95358-3, 27406-6 #### [facility] ([id number]) [address] [place] [address] 76568 Protein [Mass/Vol] 6.9 g/dL Normal 6.0-8.0 [facility] Comment on above: Performed By: #### C BCA, 23976-8, CMP, 75457-8, 99738-9 #### [facility] ([id number]) [address] [place] [address] 18878 Sodium [Moles/Vol] 134 mmol/L Normal 134-146 [facility] Comment on above: Performed By: #### C BCA, 70577-4, CMP, 92197-4, 51951-7 #### [facility] ([id number]) [address] [place] [address] 70813 Urea nitrogen [Mass/Vol] 22 mg/dL Normal 5-27 [facility] Comment on above: Performed By: #### C BCA, 67341-2, CMP, 34076-0, 01200-7 #### [facility] ([id number]) [address] [place] [address] 81572 Comprehensive metabolic pane schuyler 06-12-2024 Albumin [Mass/Vol] 3.8 g/dL 3.2 - 5.3 g/dL [facility] ALP [Catalytic activity/Vol] 78 U/L 39 - 130 U/L [facility] ALT No additional P-5'-P [Catalytic activity/Vol] 30 U/L 0 - 31 U/L [facility] Anion gap [Moles/Vol] 16 mmol/L High 5 - 15 mmol/L [facility] AST [Catalytic activity/Vol] 31 U/L 0 - 41 U/L [facility] Bilirubin [Mass/Vol] 0.2 mg/dL Low 0.3 - 1 .2 mg/dL [facility] Calcium [Mass/Vol] 9.0 mg/dL 8.5 - 10. 5 mg/dL [facility] Chloride [Moles/Vol] 103 mmol/L 98 - 10 9 mmol/L [facility] CO2 [Moles/Vol] 15 mmol/L Low 22 - 32 mmol/L [facility] Creatinine [Mass/Vol] 0.92 mg/dL 0.40 - 1.00 mg/dL [facility] Comment on above: METHOD TRACEABLE TO [facility] STANDARD eGFR (CKD-EPI)non-race dependent 65 - PINF [facility] Comment on above: Reported eGFR is based on the CKD-EPI 2020 equation that does not use a race coefficient. Glucose [Mass/Vol] 362 mg/dL High 65 - 99 mg/dL [facility] Interpretation and review of laboratory results Abnormal [facility] Potassium [Moles/Vol] 3.7 mmol/L 3.5 - 5.0 mmol/L [facility] Protein [Mass/Vol] 6.9 g/dL 6.0 - 8.0 g/dL [facility] Sodium [Moles/Vol] 134 mmol/L 134 - 146 mmol/L [facility] Urea nitrogen [Mass/Vol] 22 mg/dL 5 - 27 mg/dL [facility] D-Dimeron 06-12-2024 Fibrin D-dimer DDU (PPP) [Mass/Vol] NINF [facility] Comment on above: Results <255 ng/mL DDU: The presence of a VTE can safely be excluded with a negative D-Dimer result and Wells score. A negative result doesn't exclude the possibility of DIC. The test be repeated along with other diagnostic tests if the patient's symptoms persist or worsen. [email or web address]& uh=acaea ECG 12 leadOrdered By: Savita Jovel on 06-12-2024 [facility] Fibrin D-dimer DDU (PPP) [Ma ss/Vol]on 06-12-2024 [facility] D DIMER <150 Normal <255 [facility] Comment on above: Result Comment: Results <255 ng/mL DDU: The presence of a VTE can safely be excluded with a negative D-Dimer result and Wells score. A negative result doesn't exclude the possibility of DIC. The test be repeated along with other diagnostic tests if the patient's symptoms persist or worsen. [email or web address]& uh=acaea Performed By: #### C JAMES, 55850-4, HARRISON, 23212-4, 15698-9 #### [facility] ([id number]) [address] [place] [address] 28917 Glucose Glucometer (BldC) [M ass/Vol]on 06-12-2024 Glucose [Mass/Vol] 327 mg/dL High 65 - 99 mg/dL [facility] Interpretation and review of laboratory results Abnormal [facility] Glucose [Mass/Vol] 327 mg/dL High 65-99 [facility] Natriuretic peptide B [Mass/ Vol]on 06-12-2024 Natriuretic peptide B (Bld) [Mass/Vol] 71 pg/mL NINF - 100.0 pg/mL [facility] Natriuretic peptide B (Bld) [Mass/Vol] 71 pg/mL Normal <100.0 [facility] Comment on above: Performed By: #### C JAMES, 90911-1, [facility], 08616-9, 29255-1 #### [facility] ([id number]) [address] [place] [address] 14452 Procalcitoninon 06-12-2024 Procalcitonin IA [Mass/Vol] 0.05 ng/mL High NINF - 0.05 ng/mL [facility] Comment on above: NOTE <0.50 ng/mL - Low risk of severe sepsis and/or septic shock. <2.00 ng/mL - Recommend retesting within 6-24 hours. >2.00 ng/mL - High risk of sepsis and/or septic shock. Procalcitonin IA [Mass/Vol]o n 06-12-2024 Interpretation and review of laboratory results Abnormal [facility] PROCALCITONIN 0.05 ng/mL High <0.05 [facility] Comment on above: Result Comment: NOTE <0.50 ng/mL - Low risk of severe sepsis and/or septic shock. <2.00 ng/mL - Recommend retesting within 6-24 hours. >2.00 ng/mL - High risk of sepsis and/or septic shock. Performed By: #### 6 873-4, 74028-8, 98558-1 #### [facility] ([id number]) [address] [place] [address] 60522 Troponin I, High Sensitivity on 06-12-2024 Troponin I.cardiac High sensitivity method [Mass/Vol] 7 ng/L [facility]/L [facility] Troponin I, High Sensitivity 1 Houron 06-12-2024 Troponin I.cardiac High sensitivity method [Mass/Vol] 10 ng/L [facility] ng/L [facility] Troponin I.cardiac High sens itivity method [Mass/Vol]on 06-12-2024 [facility] 1 HOUR TROP I, HIGH SENSITIVITY 10 ng/L Normal <16 [facility] Comment on above: Performed By: #### 6 873-4, 76286-1, 23890-3 #### [facility] ([id number]) [address] [place] [address] 29718 [facility] TROPONIN I, HIGH SENSITIVITY 7 ng/L Normal <16 [facility] Comment on above: Performed By: #### C BCA, 54547-8, [facility], 43343-9, 50997-6 #### [facility] ([id number]) [address] [place] [address] 84819 VENOUS BLOOD GASon 07-22-202 4 GALI'S TEST Normal [facility] Comment on above: Performed By: #### V BG #### [facility] ([id number]) [address] [place] [address] [id number] BASE,DEFICIT 9.0 MMOL/L High 0.0-2.0 [facility] Comment on above: Performed By: #### V BG #### [facility] ([id number]) [address] [place] [address] [place] [address] Body temperature 98.6 [degF] Normal 37.[address] [facility] Comment on above: Performed By: #### V BG #### [facility] ([id number]) [address] [place] [address] [id number] HCO3 (Bld) [Moles/Vol] 16.0 mmol/L Low 20.0-24.0 [facility] [facility] [place] Comment on above: Performed By: #### V BG #### [facility] ([id number]) [address] [place] [id number] Oxygen saturation in Blood 60.0 % Low >80.0 [facility] Comment on above: Performed By: #### V BG #### [facility] ([id number]) [address] [place] [address] [place] [address] OXYGEN SOURCE RoomAir Normal [facility] Comment on above: Performed By: #### V BG #### [facility] ([id number]) [address] [place] [id number] PCO2, VENOUS 30.0 MMHG Low 35-50 [facility] Comment on above: Performed By: #### V BG #### [facility] ([id number]) [address] [place] [address] [id number] PH, VENOUS 7.334 Normal 7.320-7.420 [facility] Comment on above: Performed By: #### V BG #### [facility] ([id number]) [address] [place] [address] [id number] PO2, VENOUS 33 MMHG Normal 30-50 [facility] Comment on above: Performed By: #### V BG #### [facility] ([id number]) [address] [place] [address] 25749 SAMPLE SITE N/A Normal [facility] Comment on above: Performed By: #### V BG #### [facility] ([id number]) [address] [place] [address] [id number] SAMPLE TYPE VENOUS Normal [facility] Comment on above: Performed By: #### V BG #### [facility] ([id number]) [address] [place] [id number] XR Chest PA and Lateralon Marvin Ackerman MD - 06/12/2024 Procedure: Chest x-ray performed Number of views:2 History:Chest pain Covid positive Comparison:01/20/2020 Findings: The heart and lungs show no acute findings, and the mediastinum and brennen are grossly negative . Impression: 1. No acute change. Finalized by Marvin Ackerman MD on 06/12/2024 9:29 PM [facility] Radiology Study observation (narrative) [facility] XR Chest PA and LateralOrder ed By: Marvin Ackerman on 06-12-2024 [facility] Work Phone: FLUORO FOR SURGICAL PROCEDUR ESon 03-22-2024 FLU[facility] FOR SURGICAL PROCEDURES Radiology result is complete; follow up with provider / physician office for radiology results Final result Normal [facility] Glucose,Whole Bloodon 2023 Glucose [Mass/Vol] 95 mg/dL Normal 65-105 [facility] FLUORO FOR SURGICAL PROCEDUR ESon 02-02-2024 FLUORO FOR SURGICAL PROCEDURES Radiology result is complete; follow up with provider / physician office for radiology results Final result Normal [facility] Glucose,Whole Bloodon 2023 Glucose [Mass/Vol] 88 mg/dL Normal 65-105 [facility] POC Glucose Fingerstickon Glucose [Mass/Vol] 88 mg/dL 65 - 105 mg/dL [facility] COVID + FLU Quick Testingon 12-28-2023 SARS-CoV-2 (COVID-19) RNA JAYY+probe Ql (Unsp spec) Negative Answer.To Other COVID + FLU Quick Testing Negative Answer.To Other FLUORO FOR SURGICAL PROCEDUR ESon 11-08-2023 FLUORO FOR SURGICAL PROCEDURES Radiology result is complete; follow up with provider / physician office for radiology results Final result Normal [facility] No Panel Informationon 05-14 [facility] XR LUMBAR 3V AP/LAT/L5-S1on 05-14-2023 XR [...] severe lumbar spine degenerative change as described. Sawyer Helper: JENNIFER Transcribe Date/Time: May 14 2023 1:53P Dictated by : GABRIELA SANDERSON MD This examination was interpreted and the report reviewed and electronically signed by: GABRIELA SANDERSON MD on May 14 2023 1:54PM EST [id number] [facility] XR PELVIS 1V APon 05-14-2023 XR PELVIS [...] bony erosions. IMPRESSION: Degenerative changes as described. Sawyer Helper: JENNIFER Transcribe Date/Time: May 14 2023 1:52P Dictated by : GABRIELA SANDERSON MD This examination was interpreted and the report reviewed and electronically signed by: GABRIELA SANDERSON MD on May 14 2023 1:53PM EST [id number] [facility] C-REACTIVE PROTEIN (CRP)on 0 03-27-2023 CRP [Mass/Vol] <0.9 mg/dL [facility] ESR Westergren method (Bld) [Velocity]on 03-27-2023 ESR (Bld) [Velocity] 8 mm/h 0 - 20 mm/hr Cl [facility] POINT OF CARE GLUCOSEon 04-0 Glucose [Mass/Vol] 133 mg/dL Critically high 74-106 [facility] Comment on above: Performed By: #### P OCGLUC #### [facility] [address] [address] [address] Kris Castillo CBC with Auto Differentialon 12-02-2022 Absolute Eos # 0.20 [facility] Absolute Lymph # 2.10 [facility] Absolute Holt # 0.30 [facility] Basophils (Bld) [#/Vol] 0.00 10*3/uL [facility] Basophils/100 WBC (Bld) 1 % 0 - 2 % [facility] Eosinophils/100 WBC (Bld) 3 % 0 - 4 % [facility] Hematocrit (Bld) [Volume fraction] 33.7 % Low 36 - 46 % [facility] Hemoglobin (Bld) [Mass/Vol] 11.3 g/dL Low 12.0 - 16.0 g/dL [facility] Interpretation and review of laboratory results Abnormal [facility] Lymphocytes/100 WBC (Bld) 36 % 24 - 44 % [facility] MCH (RBC) [Entitic mass] 29.2 pg 26 - 34 pg [facility] MCHC (RBC) [Mass/Vol] 33.5 g/dL 31 - 37 g/dL [facility] MCV (RBC) [Entitic vol] 87.1 fL 80 - 100 fL [facility] Monocytes/100 WBC (Bld) 6 % 1 - 7 % [facility] Platelet distribution width (Bld) [Ratio] 15.9 % High 11.5 - 14.9 % [facility] Platelet mean volume (Bld) [Entitic vol] 7.5 fL 6.0 - 12.0 fL [facility] Platelets (Bld) [#/Vol] 255 10*3/uL [facility] RBC (Bld) [#/Vol] 3.87 10*6/uL Low 4.0 - 5.2 m/uL [facility] Segmented neutrophils/100 WBC (Bld) 54 % 36 - 66 % [facility] Segs Absolute 3.00 [facility] WBC (Bld) [#/Vol] 5.7 10*3/uL [facility] Comprehensive Metabolic Pane schuyler 12-02-2022 Albumin [Mass/Vol] 3.8 g/dL 3.5 - 5.2 g/dL [facility] ALP (Bld) [Catalytic activity/Vol] 79 U/L 35 - 104 U/L [facility] ALT [Catalytic activity/Vol] 14 U/L 5 - 33 U/L [facility] Anion gap [Moles/Vol] 10 mmol/L 9 - 17 mmol/L [facility] AST [Catalytic activity/Vol] 18 U/L NINF - 32 U/L [facility] Bilirubin [Mass/Vol] 0.5 mg/dL 0.3 - 1 .2 mg/dL [facility] Calcium [Mass/Vol] 9.6 mg/dL 8.6 - 10. 4 mg/dL [facility] Chloride [Moles/Vol] 105 mmol/L 98 - 10 7 mmol/L [facility] CO2 [Moles/Vol] 26 mmol/L 20 - 31 mmol/L [facility] Creatinine [Mass/Vol] 0.53 mg/dL 0.50 - 0.90 mg/dL [facility] GFR/1.73 sq M.predicted MDRD (S/P/Bld) [Vol rate/Area] - PINF [facility] Comment on above: Effective Aug 24, 2022 [...] 135 mg/dL High 70 - 99 mg/dL [facility] Interpretation and review of laboratory results Abnormal [facility] Potassium [Moles/Vol] 4.3 mmol/L 3.7 - 5.3 mmol/L [facility] Protein [Mass/Vol] 6.6 g/dL 6.4 - 8.3 g/dL [facility] Sodium [Moles/Vol] 141 mmol/L 135 - 144 mmol/L [facility] Urea nitrogen (BldV) [Mass/Vol] 14 mg/dL 8 - 23 mg/dL [facility] Folateon 12-02-2022 Folate 11 ng/mL 4.8 - PINF ng/mL [facility] Iron and TIBCon 12-02-2022 Iron [Mass/Vol] 81 ug/dL 37 - 145 ug/dL [facility] Iron Saturation 24 % 20 - 55 % [facility] TIBC 338 ug/dL 250 - 450 ug/dL [facility] UIBC 257 ug/dL 112 - 347 ug/dL [facility] Lipaseon 12-02-2022 Lipase [Catalytic activity/Vol] 16 U/L 13 - 60 U/L [facility] No Panel Informationon 12-02 [facility] Reticulocyteson 12-02-2022 Absolute Retic # 0.036 [facility] Retic % 0.9 % 0.5 - 2.0 % [facility] T4, Freeon 12-02-2022 Interpretation and review of laboratory results Abnormal [facility] Thyroxine, Free 1.95 ng/dL High 0.93 - 1.70 ng/dL [facility] TSH With Reflex Ft4on 2022 Interpretation and review of laboratory results Abnormal [facility] TSH Qn 0.08 m[IU]/L Low [facility] Vitamin B12on 12-02-2022 Cobalamin (Vitamin B12) [Mass/Vol] pg/mL High 232 - 1245 pg/mL [facility] Interpretation and review of laboratory results Abnormal [facility] XR WRIST RT MIN 3 Von [...] by: ALEX HUERTA Date: 2022-09-06 16:27 Normal [facility] LIPID PROFILEon 08-29-2022 CHOL-HDL RATIO NORM SEE BELOW Normal [facility] Comment on above: Result Comment: 3.3 - 4.4 LOW RISK 4.4 - 7.1 AVERAGE RISK 7.1 - 11.0 MODERATE RISK >11.0 HIGH RISK Performed By: #### C MREP #### [facility] [address] [address] [address] Kris Castillo Cholesterol [Mass/Vol] 157 mg/dL Normal <=200 [facility] Comment on above: Performed By: #### C MREP #### [facility] [address] [address] [address] Kris Castillo Cholesterol in HDL [Mass/Vol] 84 mg/dL Critically high 40-60 [facility] Comment on above: Performed By: #### C MREP #### [facility] [address] [address] [address] Kris Castillo Cholesterol in LDL [Mass/Vol] 62.4 mg/dL Normal [facility] Comment on above: Performed By: #### C MREP #### [facility] [address] [address] [address] Kris Castillo Cholesterol.total/Chol esterol in HDL [Mass ratio] 1.9 {ratio} Normal [facility] Comment on above: Performed By: #### C MREP #### [facility] [id number] Kris Castillo HDL NORMAL > or = 60 mg/dl - LOW CARDIOVASCULAR RISK <40 mg/dl - HIGH CARDIOVASCULAR RISK Normal [facility] Comment on above: Performed By: #### C MREP #### [facility] [id number] Kris Castillo LDL CALC NORMAL SEE BELOW Normal [facility] Comment on above: Result Comment: <100 mg/dl OPTIMAL 100 - 129 mg/dl NEAR OR ABOVE OPTIMAL 130 - 159 mg/dl BORDERLINE HIGH 160 - 189 mg/dl HIGH >190 mg/dl VERY HIGH Performed By: #### C MREP #### [facility] [address] [place] [address] Dr. Kris Castillo Triglyceride [Mass/Vol] 53 mg/dL Normal <=150 [facility] Comment on above: Performed By: #### C MREP #### [facility] [address] [address] [address] Kris Castillo VLDL CALC 10.6 mg/dL Normal [facility] Comment on above: Performed By: #### C MREP #### [facility] [address] [place] [address] Dr. Kris Castillo CARDIAC ROYA 3-6on 2 CK [Catalytic activity/Vol] 54 U/L Normal 26-192 [facility] Comment on above: Performed By: #### D DIM #### [facility] [address] [place] [address] Dr. Kris Castillo CK.MB [Mass/Vol] 1.12 ng/mL Normal <=3.60 [facility] Comment on above: Performed By: #### D DIM #### [facility] [address] [place] [address] Dr. Kris Castillo HSTROP 8.2 pg/mL Normal 4.0-51.3 [facility] Comment on above: Result Comment: CUT- OFF POINTS HAVE BEEN ESTABLISHED BASED ON THE FOURTH UNIVERSAL DEFINITIONS OF MYOCARDIAL INFARCTION. THE UPPER REFERENCE LIMIT (URL) OF TROPONIN, DEFINED THE 99TH PERCENTILE OF cTnI DISTRIBUTION IN A REFERENCE POPULATION, HAS BEEN CONFIRMED THE DECISION THRESHOLD FOR MS DIAGNOSIS. Performed By: #### D DIM #### [facility] [address] [place] [address] Dr. Kris Castillo CK [Catalytic activity/Vol] 57 U/L Normal 26-192 [facility] Comment on above: Performed By: #### C MREP #### [facility] [address] [place] [address] Dr. Kris Castillo CK.MB [Mass/Vol] 1.25 ng/mL Normal <=3.60 [facility] Comment on above: Performed By: #### C MREP #### [facility] [address] [place] [address] Dr. Kris Castillo HSTROP 7.3 pg/mL Normal 4.0-51.3 [facility] Comment on above: Result Comment: CUT- OFF POINTS HAVE BEEN ESTABLISHED BASED ON THE FOURTH UNIVERSAL DEFINITIONS OF MYOCARDIAL INFARCTION. THE UPPER REFERENCE LIMIT (URL) OF TROPONIN, DEFINED THE 99TH PERCENTILE OF cTnI DISTRIBUTION IN A REFERENCE POPULATION, HAS BEEN CONFIRMED THE DECISION THRESHOLD FOR MS DIAGNOSIS. Performed By: #### C MREP #### [facility] [address] [place] [address] Dr. Kris Castillo CARDIAC ROYA ADMITon 022 CK [Catalytic activity/Vol] 86 U/L Normal 26-192 [facility] Comment on above: Performed By: #### D DIM #### [facility] [address] [place] [address] Dr. Kris Castillo CK.MB [Mass/Vol] 1.65 ng/mL Normal <=3.60 [facility] Comment on above: Performed By: #### D DIM #### [facility] [address] [place] [address] Dr. Kris Castillo HSTROP 6.2 pg/mL Normal 4.0-51.3 [facility] Comment on above: Result Comment: CUT- OFF POINTS HAVE BEEN ESTABLISHED BASED ON THE FOURTH UNIVERSAL DEFINITIONS OF MYOCARDIAL INFARCTION. THE UPPER REFERENCE LIMIT (URL) OF TROPONIN, DEFINED THE 99TH PERCENTILE OF cTnI DISTRIBUTION IN A REFERENCE POPULATION, HAS BEEN CONFIRMED THE DECISION THRESHOLD FOR MS DIAGNOSIS. Performed By: #### D DIM #### [facility] [address] [place] [address] Dr. Kris Castillo RAMSES 34 ng/mL Normal 9-82 [facility] Comment on above: Performed By: #### D DIM #### [facility] [address] [place] [address] Dr. Kris Castillo CBC AUTO DIFFon 08-28-2022 BASO # 0.1 103/ul Normal 0.0-0.1 [facility] Comment on above: Performed By: #### C BC #### [facility] [address] [place] [address] Dr. Kris Castillo Basophils/100 WBC (Bld) 0.6 % Normal 0.2-2.0 [facility] Comment on above: Performed By: #### C BC #### [facility] [address] [place] [address] Dr. Kris Castillo EO # 0.3 103/ul Normal 0.0-0.7 [facility] Comment on above: Performed By: #### C BC #### [facility] [address] [place] [address] Dr. Kris Castillo Eosinophils/100 WBC (Bld) 3.8 % Normal 0.9-7.0 [facility] Comment on above: Performed By: #### C BC #### [facility] [address] [place] [address] Dr. Kris Castillo Erythrocyte distribution width (RBC) [Ratio] 16.2 % Critically high 11.0-15.0 [facility] Comment on above: Performed By: #### C BC #### [facility] [address] [place] [address] Dr. Kris Castillo Hematocrit (Bld) [Volume fraction] 34.7 % Critically low 36.0-48.0 [facility] Comment on above: Performed By: #### C BC #### [facility] [address] [place] [address] Dr. Kris Castillo Hemoglobin (Bld) [Mass/Vol] 10.8 g/dL Critically low 12.0-16.0 [facility] Comment on above: Performed By: #### C BC #### [facility] [address] [place] [address] Dr. Kris Castillo IG # 0.02 10e3/ul Normal 0.00-0.03 [facility] Comment on above: Performed By: #### C BC #### [facility] [address] [place] [address] Dr. Kris Castillo IG % 0.3 % Normal 0.0-0.5 [facility] Comment on above: Performed By: #### C BC #### [facility] [address] [place] [address] Dr. Kris Castillo LYMPH # 2.2 103/ul Normal 1.2-3.8 [facility] Comment on above: Performed By: #### C BC #### [facility] [address] [place] [address] Dr. Kris Castillo Lymphocytes/100 WBC (Bld) 27.9 % Normal 20.5-60.0 [facility] Comment on above: Performed By: #### C BC #### [facility] [address] [place] [address] Dr. Kris Castillo MANUAL DIFF REQ NO Normal [facility] Comment on above: Performed By: #### C BC #### [facility] [address] [place] [address] Dr. Kris Castillo MCH (RBC) [Entitic mass] 27.7 pg Normal 26.7-34.0 [facility] Comment on above: Performed By: #### C BC #### [facility] [address] [place] [address] Dr. Kris Castillo MCHC (RBC) [Mass/Vol] 31.1 g/dL Normal 29.9-35.2 [facility] Comment on above: Performed By: #### C BC #### [facility] [address] [place] [address] Dr. Kris Castillo MCV (RBC) [Entitic vol] 89.0 fL Normal 81.0-99.0 [facility] Comment on above: Performed By: #### C BC #### [facility] [address] [place] [address] Dr. Kris Castillo MONO # 0.6 103/ul Normal 0.3-0.8 [facility] Comment on above: Performed By: #### C BC #### [facility] [address] [place] [address] Dr. Kris Castillo Monocytes/100 WBC (Bld) 7.6 % Normal 1.7-12.0 [facility] Comment on above: Performed By: #### C BC #### [facility] [address] [place] [address] Dr. Kris Castillo NEUT # 4.7 103/ul Normal 1.4-6.5 [facility] Comment on above: Performed By: #### C BC #### [facility] [address] [place] [address] Dr. Kris Castillo Neutrophils/100 WBC (Bld) 59.8 % Normal 43.0-75.0 [facility] Comment on above: Performed By: #### C BC #### [facility] [address] [place] [address] Dr. Kris Castillo Platelet mean volume (Bld) [Entitic vol] 9.5 fL Normal 9.5-13.5 [facility] Comment on above: Performed By: #### C BC #### [facility] [address] [place] [address] Dr. Kris Castillo PLT 264 103/ul Normal 150-450 [facility] Comment on above: Performed By: #### C BC #### [facility] [address] [place] [address] Dr. Kris Castillo RBC 3.90 106/ul Critically low 4.20-5.40 [facility] Comment on above: Performed By: #### C BC #### [facility] [address] [place] [address] Dr. Kris Castillo WBC 7.9 103/ul Normal 4.0-11.0 [facility] Comment on above: Performed By: #### C BC #### [facility] [address] [place] [address] Dr. Kris Castillo Covid-19 PCR ([facility])on SARS-CoV-2 (COVID-19) RNA JAYY+probe Ql (Unsp spec) Not detected Normal NOT DETECTED [facility] Comment on above: Result Comment: When [...] for this test is supported by the [employer] Att[employer] of Health and Human Service's declaration that [...] used). Performed By: #### C VDTBH #### [facility] [address] [place] [address] Dr. Kris Castillo D-DIMERon 08-28-2022 D-DIMER 0.48 mg/L FEU Normal <=0.59 [facility] Comment on above: Performed By: #### D DIM #### [facility] [address] [place] [address] Dr. Kris Castillo D-DIMER COMMENTS SEE BELOW Normal [facility] Comment on above: Result Comment: Incr [...] hospitalization. Performed By: #### D DIM #### [facility] [address] [place] [address] Dr. Kris Castillo LIPID PROFILEon 08-28-2022 CHOL-HDL RATIO NORM SEE BELOW Normal [facility] Comment on above: Result Comment: 3.3 - 4.4 LOW RISK 4.4 - 7.1 AVERAGE RISK 7.1 - 11.0 MODERATE RISK >11.0 HIGH RISK Performed By: #### D DIM #### [facility] [address] [place] [address] Dr. Kris Castillo Cholesterol [Mass/Vol] 151 mg/dL Normal <=200 Th [facility] Comment on above: Performed By: #### D DIM #### [facility] [address] [place], [place] [address] Dr. Kris Castillo Cholesterol in HDL [Mass/Vol] 77 mg/dL Critically high 40-60 [facility] Comment on above: Performed By: #### D DIM #### [facility] [address] [place], [place] [address] Dr. Kris Castillo Cholesterol in LDL [Mass/Vol] 65.6 mg/dL Normal [facility] Comment on above: Performed By: #### D DIM #### [facility] [address] [address] [address] Kris Castillo Cholesterol.total/Chol esterol in HDL [Mass ratio] 2.0 {ratio} Normal [facility] Comment on above: Performed By: #### D DIM #### [facility] [address] [address] [address] Kris Castillo HDL NORMAL > or = 60 mg/dl - LOW CARDIOVASCULAR RISK <40 mg/dl - HIGH CARDIOVASCULAR RISK Normal [facility] Comment on above: Performed By: #### D DIM #### [facility] [address] [address] [address] Kris Castillo LDL CALC NORMAL SEE BELOW Normal [facility] Comment on above: Result Comment: <100 mg/dl OPTIMAL 100 - 129 mg/dl NEAR OR ABOVE OPTIMAL 130 - 159 mg/dl BORDERLINE HIGH 160 - 189 mg/dl HIGH >190 mg/dl VERY HIGH Performed By: #### D DIM #### [facility] Laboratory [address] [address] [address] Kris Castillo Triglyceride [Mass/Vol] 42 mg/dL Normal <=150 [facility] Comment on above: Performed By: #### D DIM #### [facility] [address] [address] [address] Kris Castillo VLDL CALC 8.4 mg/dL Normal [facility] Comment on above: Performed By: #### D DIM #### [facility] [address] [address] [address] Kris Castillo POINT OF CARE GLUCOSEon 10-0 Glucose [Mass/Vol] 108 mg/dL Critically high 74-106 [facility] Comment on above: Performed By: #### D DIM #### [facility] [address] [place] [address] Dr. Kris Castillo PROF 14(COMP METB)on 022 Albumin [Mass/Vol] 3.4 g/dL Normal 3.4-5.0 [facility] Comment on above: Performed By: #### D DIM #### [facility] [address] [place] [address] Dr. Kris Castillo Albumin/Globulin [Mass ratio] 0.9 {ratio} Normal [facility] Comment on above: Performed By: #### D DIM #### [facility] [address] [place] [address] Dr. Kris Castillo ALP [Catalytic activity/Vol] 88 U/L Normal 46-116 [facility] Comment on above: Performed By: #### D DIM #### [facility] [address] [place] [address] Dr. Kris Castillo ALT [Catalytic activity/Vol] 16 U/L Normal 14-59 [facility] Comment on above: Performed By: #### D DIM #### [facility] [address] [place] [address] Dr. Kris Castillo Anion gap [Moles/Vol] 9.5 mmol/L Normal [facility] Comment on above: Performed By: #### D DIM #### [facility] [address] [place] [address] Dr. Kris Castillo AST [Catalytic activity/Vol] 18 U/L Normal 15-37 [facility] Comment on above: Performed By: #### D DIM #### [facility] [address] [place] [address] Dr. Kris Castillo Bilirubin [Mass/Vol] 0.5 mg/dL Normal 0.2-1.0 [facility] Comment on above: Performed By: #### D DIM #### [facility] [address] [place] [address] Dr. Kris Castillo Calcium [Mass/Vol] 9.7 mg/dL Normal 8.5-10.1 [facility] Comment on above: Performed By: #### D DIM #### [facility] [address] [address] [address] Kris Castillo Chloride [Moles/Vol] 103 mmol/L Normal 98-107 [facility] Comment on above: Performed By: #### D DIM #### [facility] [address] [address] [address] Kris Castillo CO2 [Moles/Vol] 28.4 mmol/L Normal 21.0-32.0 [facility] Comment on above: Performed By: #### D DIM #### [facility] [address] [address] [address] Kris Castillo Creatinine [Mass/Vol] 0.78 mg/dL Normal 0.55-1.02 [facility] Comment on above: Performed By: #### D DIM #### [facility] [address] [place] [address] Dr. Kris Castillo EGFR-AF IRANIAN >60 Normal >=60 [facility] Comment on above: Performed By: #### D DIM #### [facility] [address] [address] [address] Kris Castillo EGFR-NON AF IRANIAN >60 Normal >=60 [facility] Comment on above: Performed By: #### D DIM #### [facility] [address] [address] [address] Kris Castillo Globulin (S) [Mass/Vol] 3.6 g/dL Normal [facility] Comment on above: Performed By: #### D DIM #### [facility] [address] [address] [address] Kris Castillo Glucose [Mass/Vol] 111 mg/dL Critically high 74-106 [facility] Comment on above: Performed By: #### D DIM #### [facility] [address] [address] [address] Kris Castillo Potassium [Moles/Vol] 3.9 mmol/L Normal 3.5-5.1 [facility] Comment on above: Performed By: #### D DIM #### [facility] [address] [address] [address] Kris Castillo Protein [Mass/Vol] 7.0 g/dL Normal 6.4-8.2 [facility] Comment on above: Performed By: #### D DIM #### [facility] [address] [address] [address] Kris Castillo Sodium [Moles/Vol] 137 mmol/L Normal 136-145 [facility] Comment on above: Performed By: #### D DIM #### [facility] [address] [address] [address] Kris Castillo Urea nitrogen [Mass/Vol] 21.0 mg/dL Critically high 7.0-18.0 [facility] Comment on above: Performed By: #### D DIM #### [facility] [address] [address] [address] Kris Castillo Urea nitrogen/Creatinine [Mass ratio] 26.9 mg/mg Normal [facility] Comment on above: Performed By: #### D DIM #### [facility] [address] [address] [address] Kris Castillo XR CHEST 1 Von [...] by: GABRIELA MITTAL Date: 2022-08-28 02:26 Normal [facility] CULTURE URINEon 07-27-2022 CULTURE URINE Isolate [...] F Trimethoprim/Sulfame thoxazole >=320 R F Normal [facility] Comment on above: Performed By: #### D DIM #### [facility] [address] [place] [address] Dr. Kris Castillo ACETONE SERUMon 07-25-2022 ACETONE Negative Normal NEGATIVE [facility] Comment on above: Performed By: #### C MREP #### [facility] [address] [place] [address] Dr. Kris Castillo BNPon 07-25-2022 Natriuretic peptide B (Bld) [Mass/Vol] 111.0 pg/mL Normal <=900.0 [facility] Comment on above: Performed By: #### C MREP #### [facility] [address] [address] [address] Kris Castillo CARDIAC ROYA ADMITon 022 CK [Catalytic activity/Vol] 61 U/L Normal 26-192 [facility] Comment on above: Performed By: #### C MREP #### [facility] [address] [place] [address] Dr. Kris Castillo CK.MB [Mass/Vol] 1.55 ng/mL Normal <=3.60 [facility] Comment on above: Performed By: #### C MREP #### [facility] [address] [place] [address] Dr. Kris Castillo HSTROP 7.1 pg/mL Normal 4.0-51.3 [facility] Comment on above: Result Comment: CUT- OFF POINTS HAVE BEEN ESTABLISHED BASED ON THE FOURTH UNIVERSAL DEFINITIONS OF MYOCARDIAL INFARCTION. THE UPPER REFERENCE LIMIT (URL) OF TROPONIN, DEFINED THE 99TH PERCENTILE OF cTnI DISTRIBUTION IN A REFERENCE POPULATION, HAS BEEN CONFIRMED THE DECISION THRESHOLD FOR MS DIAGNOSIS. Performed By: #### C MREP #### [facility] [address] [address] [address] Kris Castillo RAMSES 29 ng/mL Normal 9-82 [facility] Comment on above: Performed By: #### C MREP #### [facility] [id number] Kris Castillo CBC AUTO DIFFon 07-25-2022 BASO # 0.1 103/ul Normal 0.0-0.1 [facility] Comment on above: Performed By: #### C BC #### [facility] [address] [place] [address] Dr. Kris Castillo Basophils/100 WBC (Bld) 0.6 % Normal 0.2-2.0 [facility] Comment on above: Performed By: #### C BC #### [facility] [address] [place] [address] Dr. Kris Castillo EO # 0.2 103/ul Normal 0.0-0.7 [facility] Comment on above: Performed By: #### C BC #### [facility] [address] [place] [address] Dr. Kris Castillo Eosinophils/100 WBC (Bld) 2.6 % Normal 0.9-7.0 [facility] Comment on above: Performed By: #### C BC #### [facility] [address] [place] [address] Dr. Kris Castillo Erythrocyte distribution width (RBC) [Ratio] 17.4 % Critically high 11.0-15.0 [facility] Comment on above: Performed By: #### C BC #### [facility] [address] [place] [address] Dr. Kris Castillo Hematocrit (Bld) [Volume fraction] 34.5 % Critically low 36.0-48.0 [facility] Comment on above: Performed By: #### C BC #### [facility] [address] [place] [address] Dr. Kris Castillo Hemoglobin (Bld) [Mass/Vol] 11.0 g/dL Critically low 12.0-16.0 [facility] Comment on above: Performed By: #### C BC #### [facility] [address] [place] [address] Dr. Kris Castillo IG # 0.03 10e3/ul Normal 0.00-0.03 [facility] Comment on above: Performed By: #### C BC #### [facility] [address] [place] [address] Dr. Kris Castillo IG % 0.3 % Normal 0.0-0.5 [facility] Comment on above: Performed By: #### C BC #### [facility] [address] [place] [address] Dr. Kris Castillo LYMPH # 2.0 103/ul Normal 1.2-3.8 [facility] Comment on above: Performed By: #### C BC #### [facility] [address] [place] [address] Dr. Kris Castillo Lymphocytes/100 WBC (Bld) 21.8 % Normal 20.5-60.0 [facility] Comment on above: Performed By: #### C BC #### [facility] [address] [place] [address] Dr. Kris Castillo MANUAL DIFF REQ NO Normal [facility] Comment on above: Performed By: #### C BC #### [facility] [address] [place] [address] Dr. Kris Castillo MCH (RBC) [Entitic mass] 27.8 pg Normal 26.7-34.0 [facility] Comment on above: Performed By: #### C BC #### [facility] [address] [place] [address] Dr. Kris Castillo MCHC (RBC) [Mass/Vol] 31.9 g/dL Normal 29.9-35.2 [facility] Comment on above: Performed By: #### C BC #### [facility] [address] [place] [address] Dr. Kris Castillo MCV (RBC) [Entitic vol] 87.3 fL Normal 81.0-99.0 [facility] Comment on above: Performed By: #### C BC #### [facility] [address] [place] [address] Dr. Kris Castillo MONO # 0.5 103/ul Normal 0.3-0.8 [facility] Comment on above: Performed By: #### C BC #### [facility] [address] [address] [address] Kris Castillo Monocytes/100 WBC (Bld) 5.9 % Normal 1.7-12.0 [facility] Comment on above: Performed By: #### C BC #### [facility] [address] [place] [address] Dr. Kris Castillo NEUT # 6.2 103/ul Normal 1.4-6.5 [facility] Comment on above: Performed By: #### C BC #### [facility] [address] [place] [address] Dr. Kris Castillo Neutrophils/100 WBC (Bld) 68.8 % Normal 43.0-75.0 [facility] Comment on above: Performed By: #### C BC #### [facility] [address] [place] [address] Dr. Kris Castillo Platelet mean volume (Bld) [Entitic vol] 9.5 fL Normal 9.5-13.5 [facility] Comment on above: Performed By: #### C BC #### [facility] [address] [place] [address] Dr. Kris Castillo PLT 231 103/ul Normal 150-450 [facility] Comment on above: Performed By: #### C BC #### [facility] [address] [place] [address] Dr. Kris Castillo RBC 3.95 106/ul Critically low 4.20-5.40 [facility] Comment on above: Performed By: #### C BC #### [facility] [address] [place] [address] Dr. Kris Castillo WBC 9.0 103/ul Normal 4.0-11.0 [facility] Comment on above: Performed By: #### C BC #### [facility] [address] [place] [address] HEAD WO CONon [...] ears demonstrate no substantial mucosal disease. Bilateral samish ocular lens replacement.Nonspeci fic calcifications are present [...] ASTRID RODRIGUEZ Date: 2022-07-25 12:48 Normal [facility] ER URINE PROFILEon 2 Bilirubin Ql (U) Negative Normal NEGATIVE [facility] Comment on above: Performed By: #### U MICRO, ERUR #### [facility] [address] [address] [address] Kris Castillo Clarity (U) CLEAR Normal CLEAR [facility] Comment on above: Performed By: #### U MICRO, ERUR #### [facility] [address] [address] [address] Kris Castillo Color (U) LT. YELLOW Normal YELLOW [facility] Comment on above: Performed By: #### U MICRO, ERUR #### [facility] [address] [place] [address] Dr. Kris Castillo ERUAHD A micrscopic examination will be performed if indicated. Normal [facility] Comment on above: Performed By: #### U MICRO, ERUR #### [facility] [address] [address] [address] Kris Castillo Glucose Ql (U) Negative Normal NEGATIVE [facility] Comment on above: Performed By: #### U MICRO, ERUR #### [facility] [address] [address] [address] Kris Castillo Hemoglobin Ql (U) Negative Normal NEGATIVE [facility] Comment on above: Performed By: #### U MICRO, ERUR #### [facility] [address] [address] [address] Kirs Castillo Ketones Ql (U) Negative Normal NEGATIVE [facility] Comment on above: Performed By: #### U MICRO, ERUR #### [facility] [address] [place] [address] Dr. Kris Castillo LEUKOCYTES SMALL Abnormal NEGATIVE [facility] Comment on above: Performed By: #### U MICRO, ERUR #### [facility] [address] [place] [address] Dr. Kris Castillo Nitrite Ql (U) Negative Normal NEGATIVE [facility] Comment on above: Performed By: #### U MICRO, ERUR #### [facility] [address] [address] [address] Kris Castillo pH (U) 6.0 [pH] Normal 5-9 [facility] Comment on above: Performed By: #### U MICRO, ERUR #### [facility] [address] [address] [address] Kris Castillo SPEC GRAVITY <=1.005 Abnormal 1.005-<=1.02 5 [facility] Comment on above: Performed By: #### U MICRO, ERUR #### [facility] [address] [place] [address] Dr. Kirs Castillo UA PROTEIN Negative Normal NEGATIVE/ TRACE [facility] Comment on above: Performed By: #### U MICRO, ERUR #### [facility] [address] [address] [address] Kris Castillo UR MICRO IND INDICATED Normal [facility] Comment on above: Performed By: #### U MICRO, ERUR #### [facility] [address] [place] [address] Dr. Kris Castillo Urobilinogen Qn (U) 0.2 {Yaritza'U}/dL Normal 0.2 - 1. 0 [facility] Comment on above: Performed By: #### U MICRO, ERUR #### [facility] [address] [place] [address] Dr. Kris Castillo PH VENOUS BLOODon 07-25-2022 PCO2 VENOUS 49.1 mmHg Normal 40.0-52.0 [facility] Comment on above: Performed By: #### P T, PTT #### [facility] [address] [place] [address] Dr. Kris Castillo pH VENOUS 7.320 Critically low 7.330-7.430 [facility] Comment on above: Performed By: #### P T, PTT #### [facility] [address] [place] [address] Dr. Kris Castillo PROF 14(COMP METB)on 022 Albumin [Mass/Vol] 3.5 g/dL Normal 3.4-5.0 [facility] Comment on above: Performed By: #### C MREP #### [facility] [address] [place] [address] Dr. Kris Castillo Albumin/Globulin [Mass ratio] 1.0 {ratio} Normal [facility] Comment on above: Performed By: #### C MREP #### [facility] [address] [place] [address] Dr. Kris Castillo ALP [Catalytic activity/Vol] 82 U/L Normal 46-116 [facility] Comment on above: Performed By: #### C MREP #### [facility] [address] [place] [address] Dr. Kris Castillo ALT [Catalytic activity/Vol] 18 U/L Normal 14-59 [facility] Comment on above: Performed By: #### C MREP #### [facility] [address] [place] [address] Dr. Kris Castillo Anion gap [Moles/Vol] 15.9 mmol/L Normal [facility] Comment on above: Performed By: #### C MREP #### [facility] [address] [address] [address] Kris Castillo AST [Catalytic activity/Vol] 14 U/L Critically low 15-37 [facility] Comment on above: Performed By: #### C MREP #### [facility] [address] [address] [address] Kris Castillo Bilirubin [Mass/Vol] 0.4 mg/dL Normal 0.2-1.0 [facility] Comment on above: Performed By: #### C MREP #### [facility] [address] [place] [address] Dr. Kris Castillo Calcium [Mass/Vol] 8.6 mg/dL Normal 8.5-10.1 [facility] Comment on above: Performed By: #### C MREP #### [facility] [address] [address] [address] Kris Castillo Chloride [Moles/Vol] 102 mmol/L Normal 98-107 [facility] Comment on above: Performed By: #### C MREP #### [facility] [address] [place] [address] Dr. Kris Castillo CO2 [Moles/Vol] 22.7 mmol/L Normal 21.0-32.0 [facility] Comment on above: Performed By: #### C MREP #### [facility] [address] [address] [address] Kris Castillo Creatinine [Mass/Vol] 0.63 mg/dL Normal 0.55-1.02 [facility] Comment on above: Performed By: #### C MREP #### [facility] [address] [place] [address] Dr. Kris Castillo EGFR-AF IRANIAN >60 Normal >=60 [facility] Comment on above: Performed By: #### C MREP #### [facility] [address] [place] [address] Dr. Kris Castillo EGFR-NON AF IRANIAN >60 Normal >=60 [facility] Comment on above: Performed By: #### C MREP #### [facility] [address] [address] [address] Kris Castillo Globulin (S) [Mass/Vol] 3.4 g/dL Normal [facility] Comment on above: Performed By: #### C MREP #### [facility] [address] [address] [address] Kris Castillo Glucose [Mass/Vol] 92 mg/dL Normal 74-106 [facility] Comment on above: Performed By: #### C MREP #### [facility] [address] [address] [address] Kris Castillo Potassium [Moles/Vol] 3.6 mmol/L Normal 3.5-5.1 [facility] Comment on above: Performed By: #### C MREP #### [facility] [address] [address] [address] Kris Castillo Protein [Mass/Vol] 6.9 g/dL Normal 6.4-8.2 [facility] Comment on above: Performed By: #### C MREP #### [facility] [address] [address] [address] Kris Castillo Sodium [Moles/Vol] 137 mmol/L Normal 136-145 [facility] Comment on above: Performed By: #### C MREP #### [facility] [address] [address] [address] Kris Castillo Urea nitrogen [Mass/Vol] 24.0 mg/dL Critically high 7.0-18.0 [facility] Comment on above: Performed By: #### C MREP #### [facility] [address] [address] [address] Kris Castillo Urea nitrogen/Creatinine [Mass ratio] 38.1 mg/mg Normal [facility] Comment on above: Performed By: #### C MREP #### [facility] [address] [address] [address] Kris Castillo PROTIMEon 07-25-2022 INR Coag (PPP) [Relative time] 1.01 {INR} Normal [facility] Comment on above: Performed By: #### P T, PTT #### [facility] [address] [place] [address] Dr. Kris Castillo INR GUIDELINES SEE BELOW Normal [facility] Comment on above: Result Comment: ISAAC RED INR: 2.0 - 3.0 CONDITIONS NOT LISTED BELOW 2.5 - 3.5 FOR PROSTHETIC HEART VALVE REPLACEMENT 2.5 - 3.5 RECURRENT THROMBOSIS Performed By: #### P T, PTT #### [facility] [address] [place] [address] Dr. Kris Castillo PT Coag (PPP) [Time] 10.9 s Normal 9.0-11.6 [facility] Comment on above: Performed By: #### P T, PTT #### [facility] [address] [place] [address] Dr. Kris Castillo PTTon 07-25-2022 aPTT Coag (Bld) [Time] 27.6 s Normal 22.3-36.2 [facility] Comment on above: Performed By: #### P T, PTT #### [facility] [address] [place] [address] Dr. Kris Castillo SARS-CoV-2 (COVID-19) RNA NA A+probe Ql (Resp)on 07-25-2022 SARS-CoV-2 (COVID-19) RNA JAYY+probe Ql (Unsp spec) Negative Answer.To Other URINE MICROSCOPIC ONLYon BACTERIA MODERATE Abnormal NONE SEEN [facility] Comment on above: Performed By: #### U MICRO, ERUR #### [facility] [address] [place] [address] Dr. Kris Castillo Bacteria identified Cx Nom (U) INDICATED Normal [facility] Comment on above: Performed By: #### U MICRO, ERUR #### [facility] [address] [place] [address] Dr. Kris Castillo CAST NONE SEEN Normal NONE SEEN [facility] Comment on above: Performed By: #### U MICRO, ERUR #### [facility] [address] [address] [address] Kris Castillo Crystals LM Nom (Urine sed) NONE SEEN Normal NONE SEEN [facility] Comment on above: Performed By: #### U MICRO, ERUR #### [facility] [address] [place] [address] Dr. Kris Castillo Epithelial cells LM Ql (Urine sed) FEW Abnormal NONE SEEN /RARE [facility] Comment on above: Performed By: #### U MICRO, ERUR #### [facility] [address] [address] [address] Kris Castillo MUCOUS NONE SEEN Normal NONE SEEN [facility] Comment on above: Performed By: #### U MICRO, ERUR #### [facility] [address] [place] [address] Dr. Kris Castillo RBC 0-2 Normal 0-2 [facility] Comment on above: Performed By: #### U MICRO, ERUR #### [facility] [address] [place] [address] Dr. Kris Castillo WBC 2-5 Abnormal NONE SEEN [facility] Comment on above: Performed By: #### U MICRO, ERUR #### [facility] [address] [place] [address] Dr. Kris Castillo XR CHEST 1 Von [...] by: BILL JONES Date: 2022-07-25 12:52 Normal [facility] CBC Auto Differentialon 05-1 Absolute Eos # 0.00 [facility] th Absolute Lymph # 1.40 [facility] alth Absolute Holt # 0.30 [facility] Basophils (Bld) [#/Vol] 0.10 10*3/uL [facility] Basophils/100 WBC (Bld) 1 % 0 - 2 % [facility] Eosinophils/100 WBC (Bld) 0 % 0 - 4 % [facility] Hematocrit (Bld) [Volume fraction] 35.2 % Low 36 - 46 % [facility] Hemoglobin.gastrointes tinal spec 1 Ql (Stl) 11.2 g/dL Low 12.0 - 16.0 g/dL [facility] Interpretation and review of laboratory results Abnormal [facility] Lymphocytes/100 WBC (Bld) 14 % Low 24 - 44 % [facility] MCH (RBC) [Entitic mass] 27.7 pg 26 - 34 pg [facility] MCHC (RBC) [Mass/Vol] 31.9 g/dL 31 - 37 g/dL [facility] MCV (RBC) [Entitic vol] 86.8 fL 80 - 100 fL [facility] Monocytes/100 WBC (Bld) 3 % 1 - 7 % [facility] Platelet distribution width (Bld) [Ratio] 16.5 % High 11.5 - 14.9 % [facility] Platelet mean volume (Bld) [Entitic vol] 6.8 fL 6.0 - 12.0 fL [facility] Platelets (Bld) [#/Vol] 290 10*3/uL [facility] RBC (Bld) [#/Vol] 4.06 10*6/uL 4.0 - 5.2 m/uL [facility] Segmented neutrophils/100 WBC (Bld) 82 % High 36 - 66 % [facility] Segs Absolute 8.50 [facility] h WBC (Bld) [#/Vol] 10.3 10*3/uL [facility] CBC with Auto Differentialon 04-07-2022 Absolute Eos # 0.00 [facility] th Absolute Lymph # 1.40 [facility] alth Absolute Holt # 0.30 [facility] lth Basophils (Bld) [#/Vol] 0.10 10*3/uL [facility] Basophils/100 WBC (Bld) 1 % 0 - 2 % [facility] Eosinophils/100 WBC (Bld) 0 % 0 - 4 % [facility] Hematocrit (Bld) [Volume fraction] 35.2 % Low 36 - 46 % [facility] Hemoglobin.gastrointes tinal spec 1 Ql (Stl) 11.2 g/dL Low 12.0 - 16.0 g/dL [facility] Interpretation and review of laboratory results Abnormal [facility] Lymphocytes/100 WBC (Bld) 14 % Low 24 - 44 % [facility] MCH (RBC) [Entitic mass] 27.7 pg 26 - 34 pg [facility] MCHC (RBC) [Mass/Vol] 31.9 g/dL 31 - 37 g/dL [facility] MCV (RBC) [Entitic vol] 86.8 fL 80 - 100 fL [facility] Monocytes/100 WBC (Bld) 3 % 1 - 7 % [facility] Platelet distribution width (Bld) [Ratio] 16.5 % High 11.5 - 14.9 % [facility] Platelet mean volume (Bld) [Entitic vol] 6.8 fL 6.0 - 12.0 fL [facility] Platelets (Bld) [#/Vol] 290 10*3/uL [facility] RBC (Bld) [#/Vol] 4.06 10*6/uL 4.0 - 5.2 m/uL [facility] Segmented neutrophils/100 WBC (Bld) 82 % High 36 - 66 % [facility] Segs Absolute 8.50 [facility] WBC (Bld) [#/Vol] 10.3 10*3/uL [facility] Iron And TIBCon 04-07-2022 Interpretation and review of laboratory results Abnormal [facility] Iron [Mass/Vol] 34 ug/dL Low 37 - 145 ug/dL [facility] Iron Saturation 8 % Low 20 - 55 % [facility] TIBC 413 ug/dL 250 - 450 ug/dL [facility] UIBC 379 ug/dL High 112 - 347 ug/dL [facility] COVID Quick Testingon 2021 Result Negative Answer.To Other Quick Fluon 04-06-2022 FLUAV Ab CF (S) [Titer] Negative Answer.To Other FLUBV Ab CF (S) [Titer] Negative Answer.To Other Laboratory - Microbiology an d Antimicrobial susceptibilityon 09-17-2021 SARS-CoV-2 (COVID-19) RNA JAYY+probe Ql (Unsp spec) [address] [id number] [place] Work Phone: No Panel Informationon 09-17 18\S\18 Normal 9-23 [facility] [address] [place] Work Phone: 27.4\S\27.4 Normal 25.1-36.5 [facility] [address] [place] Work Phone: Comment on above: PERFORMED BY:[address] [address] [address] [place], [place] [id number] MEDICAL DIRECTORKIA MORE M.D. 1.1\S\1.1 Normal [facility] [address] [place] Work Phone: Comment on above: [...] 3 - 4.5 12.5\S\12.5 Normal 9.0-12.9 [facility] [address] [place] Work Phone: 24.9\S\24.9 Normal 22.0-30.0 [facility] [address] [place] Work Phone: 106\S\106 Normal 95-114 [facility] [address] [place] Work Phone: 3.8\S\3.8 Normal 3.5-5.1 [facility] [address] [place] Work Phone: 140\S\140 Normal 136-146 [facility] [address] [place] Work Phone: [facility] [address] [place] Work Phone: > 60 Normal [facility] [address] [place] Work Phone: Comment on above: GFR estimated refere nce range: According to KDOQI guidelines, <60 ml/min/1.73m2 is sufficient to diagnose a patient with chronic kidney disease.PERFORMED BY:[facility] [place] [id number] MEDICAL DIRECTORKIA MORE M.D. 0.57\S\0.57 Normal 0.44-1.03 [facility] [address] [place] Work Phone: 46.1\S\46.1 Normal . [facility] [address] [place] Work Phone: 7.2\S\7.2 Normal . [facility] [address] [place] Work Phone: 267\S\267 Normal 150-450 [facility] [address] [place] Work Phone: 20.2\S\20.2 above high threshold 11.9-15.3 [facility] [address] [place] Work Phone: 30.4\S\30.4 below low threshold 32.0-35.0 [facility] [address] [place] Work Phone: 20.9\S\20.9 below low threshold 24.7-34.3 [facility] [address] [place] Work Phone: 2.1\S\2.1 Normal 1.8-7.7 [facility] [address] [place] Work Phone: 0.0\S\0.0 Normal 0-0.5 [facility] [address] [place] Work Phone: 1.9\S\1.9 Normal 1.00-4.8 -[facility] [address] [place] Work Phone: 4.5\S\4.5 Normal . [facility] [address] [place] Work Phone: 40.3\S\40.3 Normal . [facility] [address] [place] Work Phone: Moderate Normal -[facility] [address] [place] Work Phone: 0.1\S\0.1 Normal 0.0-0.2 -[facility] [address] [place] Work Phone: 0.2\S\0.2 Normal 0.0-0.45 [facility] [address] [place] Work Phone: 0.3\S\0.3 Normal 0.0-0.8 [facility] [address] [place] Work Phone: Normal Normal Normal [facility] [address] [place] Work Phone: Comment on above: PERFORMED BY:[address] [address] [address] [place], [place] [phone] MEDICAL DIRECTORKIA MORE M.D. Slight Normal [facility] [address] [place] Work Phone: 68.8\S\68.8 below low threshold 80-100 -[facility] [address] [place] Work Phone: 26.3\S\26.3 below low threshold 34.0-46.4 [facility] [address] [place] Work Phone: 8.0\S\8.0 below low threshold 11.8-15.4 [facility] [address] [place] Work Phone: 3.82\S\3.82 Normal 3.60-5.00 [facility] [address] [place] Work Phone: 4.6\S\4.6 Normal 3.8-11.6 [facility] [address] [place] Work Phone: [facility] [address] [place] Work Phone: Laboratory - Chemistry and C hemistry - challengeon 09-09-2021 Cholesterol [Mass/Vol] 164\S\164 Normal 140-[address] Work Phone: Comment on above: Chol less than 200 m g/dl low risk Chol 201-239 mg/dl borderline risk Chol 240 mg/dl and greater high risk Cholesterol in LDL [Mass/Vol] 90\S\90 Normal 0-[address] Work Phone: Comment on above: LDL ATP III CLASSIFI CATION LDL less than 100 mg/dL Optimal LDL 100-129 mg/dL Near or above optimal LDL 130-159 mg/dL Borderline high LDL 160-189 mg/dL High LDL greater than 189 mg/dL Very high Laboratory - Microbiology an d Antimicrobial susceptibilityon 09-09-2021 SARS-CoV-2 (COVID-19) RNA JAYY+probe Ql (Unsp spec) [address] Work Phone: No Panel Informationon 09-09 29.7\S\29.7 Normal 25.1-36.[address] Work Phone: Comment on above: PERFORMED BY:[address] [address] [address] [place], [place] [phone] MEDICAL DIRECTORKIA MORE M.D. 1.2\S\1.[address] Work Phone: Comment on above: INR [...] - 4.5 13.3\S\13.3 above high threshold 9.0-12.[address] Work Phone: 24.8\S\24.8 Normal 22.0-30.0 [facility] [address] [place] Work Phone: 106\S\106 Normal 95-114 [facility] [address] [place] Work Phone: 4.0\S\4.0 Normal 3.5-5.1 [facility] [address] [place] Work Phone: 140\S\140 Normal 136-146 [facility] [address] [place] Work Phone: Slight Normal [facility] [address] [place] Work Phone: Comment on above: PERFORMED BY:[id number] [place], [place] [phone] MEDICAL DIRECTORKIA MORE M.D. Normal Normal Normal [facility] [address] [place] Work Phone: Moderate Normal [facility] [address] [place] Work Phone: 0.1\S\0.1 Normal 0.0-0.2 [facility] [address] [place] Work Phone: 0.3\S\0.3 Normal 0.0-0.45 [facility] [address] [place] Work Phone: 0.4\S\0.4 Normal 0.0-0.8 [facility] [address] [place] Work Phone: 2.1\S\2.1 Normal 1.00-4.8 [facility] [address] [place] Work Phone: 2.6\S\2.6 Normal 1.8-7.7 [facility] [address] [place] Work Phone: Comment on above: PERFORMED BY:[facility] [place] [id number] MEDICAL DIRECTORKIA MORE M.D. 0.0\S\0.0 Normal 0-0.5 -[facility] [address] [place] Work Phone: 1.1\S\1.1 Normal . -[facility] [address] [place] Work Phone: 5.3\S\5.3 Normal . [facility] [address] [place] Work Phone: 7.2\S\7.2 Normal . -[facility] [address] [place] Work Phone: 39.2\S\39.2 Normal . -[facility] [address] [place] Work Phone: 47.2\S\47.2 Normal . [facility] [address] [place] Work Phone: 6.8\S\6.8 Normal 6.3-10.7 -[facility] [address] [place] Work Phone: 332\S\332 Normal 150-450 [facility] [address] [place] Work Phone: 20.1\S\20.1 above high threshold 11.9-15.3 -[facility] [address] [place] Work Phone: 29.8\S\29.8 below low threshold 32.0-35.0 -[facility] [address] [place] Work Phone: 20.7\S\20.7 below low threshold 24.7-34.3 -[facility] [address] [place] Work Phone: 69.2\S\69.2 below low threshold 80-100 -[facility] [address] [place] Work Phone: 27.8\S\27.8 below low threshold 34.0-46.4 -[facility] [address] [place] Work Phone: 8.3\S\8.3 below low threshold 11.8-15.4 -[facility] [address] [place] Work Phone: 4.01\S\4.01 Normal 3.60-5.00 [facility] [place] Work Phone: 5.5\S\5.5 Normal 3.8-11.6 [facility] [place] Work Phone: 11\S\11 Normal [facility] [place] Work Phone: 57\S\57 Normal 35-149 [facility] [place] Work Phone: Comment on above: TRIG ATP III CLASSIF ICATION TRIG less than 150 mg/dL Normal TRIG 150-199 mg/dL Borderline high TRIG 200-500 mg/dL High TRIG greater than 500 mg/dL Very high Standard traceable to the Center for Disease Conrtrol and Prevention (CDC) test method. 63\S\63 Normal 35-85 [facility] [place] Work Phone: Comment on above: HDL CHOL ATP-III CLA SSIFICATION Cardiovascular Risk HDL > or equal to 60 mg/dL LOW HDL < 40 mg/dL HIGH > 60 Normal [facility] [place] Work Phone: Comment on above: GFR estimated refere nce range: According to KDOQI guidelines, <60 ml/min/1.73m2 is sufficient to diagnose a patient with chronic kidney disease. 0.56\S\0.56 Normal 0.44-1.03 [facility] [place] Work Phone: 19\S\19 Normal 9-23 [facility] [place] Work Phone: [facility] [place] Work Phone: [facility] [place] Work Phone: Office Visit (Cardiology)on 09-02-2021 Follow-up [...] Hospital Evaluation and Treatment Evaluate AND Treat [facility] [place] staff to initiate [facility] preop orders for left cardiac cath Status: [...] a history of prior heart catheterization in [place] remotely that revealed normal coronary arteries. I [...] 2 SPRAYS IN EACH NOSTRIL ONCE DAILY [id number] AT NIGHT Pantoprazole Sodium 40 MG Oral [...] illicit tres (more content not included)... Normal [facility] Tobacco Screening.on 021 Fall risk assessment a) No falls within the last year [facility] [place] Work Phone: Tobacco use status [facility] b) [facility] Work Phone: POC Glucose Fingerstickon Glucose [Mass/Vol] 101 mg/dL 65 - 105 mg/dL [facility] Phone: Glucose [Mass/Vol] 121 mg/dL High 65 - 105 mg/dL [facility] Phone: Interpretation and review of laboratory results Abnormal [facility] Phone: Folateon 03-03-2021 Folate 6.6 ng/mL >4.8 [facility] Phone: Iron and TIBCon 03-03-2021 Interpretation and review of laboratory results Abnormal [facility] Phone: Iron [Mass/Vol] 15 ug/dL Low 37 - 145 ug/dL [facility] Phone: Iron Saturation 4 % Low 20 - 55 % [facility] Work Phone: TIBC 390 ug/dL 250 - 450 ug/dL [facility] Phone: UIBC 375 ug/dL High 112 - 347 ug/dL [facility] Phone: Reticulocyteson 03-03-2021 Absolute Retic # 0.049 [facility] Work Phone: Immature Retic Fract NOT REPORTED % Me [facility] Work Phone: Retic % 1.3 % 0.5 - 2.0 % [facility] [employer] Work Phone: Retic Hemoglobin NOT REPORTED 28.2 - 35.7 pg [facility] [employer] Work Phone: Vitamin B12on 03-03-2021 Cobalamin (Vitamin B12) [Mass/Vol] pg/mL High 232 - 1245 pg/mL [facility] [employer] Work Phone: Interpretation and review of laboratory results Abnormal [facility] Work Phone: Vital Signs Date Time Vital Sign Value Performing Clinician Facility 12-19-2024 10:02-0500 Body height 157.48 cm Smith Sheikh MD Work Phone: [facility] 12-19-2024 10:02-0500 Body mass index (BMI) [Ratio] 31.8 kg/m2 Smith Sheikh MD Work Phone: [facility] 12-19-2024 10:02-0500 Body temperature 100 [degF] Smith Sheikh MD Work Phone: [facility] 12-19-2024 10:02-0500 Body weight 79.15 kg Smith Sheikh MD Work Phone: [facility] 12-19-2024 10:02-0500 Diastolic blood pressure 69 mm[Hg] Smith Sheikh MD Work Phone: [facility] 12-19-2024 10:02-0500 Heart rate 98 /min Smith Sheikh MD Work Phone: [facility] 12-19-2024 10:02-0500 Respiratory rate 20 /min Smith Shekih MD Work Phone: [facility] 12-19-2024 10:02-0500 SaO2% (BldA) [Mass fraction] 99 % Smith Sheikh MD Work Phone: [facility] 12-19-2024 10:02-0500 Systolic blood pressure 137 mm[Hg] Smith Sheikh MD Work Phone: [facility] 12-01-2024 10:38-0500 Body height 157.48 cm Smith Sheikh MD Work Phone: [facility] 12-01-2024 10:38-0500 Body mass index (BMI) [Ratio] 32.1 kg/m2 Smith Sheikh MD Work Phone: [facility] 12-01-2024 10:38-0500 Body temperature 98.6 [degF] Smith Sheikh MD Work Phone: [facility] 12-01-2024 10:38-0500 Body weight 79.83 kg Smith Sheikh MD Work Phone: [facility] 12-01-2024 10:38-0500 Diastolic blood pressure 71 mm[Hg] Smith Sheikh MD Work Phone: [facility] 12-01-2024 10:38-0500 Heart rate 68 /min Smith Sheikh MD Work Phone: [facility] 12-01-2024 10:38-0500 Respiratory rate 16 /min Smith Sheikh MD Work Phone: [facility] 12-01-2024 10:38-0500 SaO2% (BldA) [Mass fraction] 96 % Smith Sheikh MD Work Phone: [facility] 12-01-2024 10:38-0500 Systolic blood pressure 120 mm[Hg] Smith Sheikh MD Work Phone: [facility] 11-03-2024 13:35-0500 Body mass index (BMI) [Ratio] 34.96 kg/m2 Esperanza Irving WEAPONS 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 [facility] Phone[facility] 11-03-2024 13:35-0500 Body weight 81.19 kg Esperanza Irving WEAPONS 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 Work Phone: [facility] [employer] [facility] 11-03-2024 13:35-0500 Diastolic blood pressure 64 mm[Hg] Esperanza Irving WEAPONS 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 Work Phone: [facility] 11-03-2024 13:35-0500 Heart rate 88 /min Esperanza Irving WEAPONS 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 Work Phone: [facility] [employer] [facility] 11-03-2024 13:35-0500 Systolic blood pressure 143 mm[Hg] Esperanza Irving WEAPONS 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 Work Phone: [facility] 07-26-2024 10:19-0400 Diastolic blood pressure 64 mm[Hg] Atul Frazier DO Work Phone: [facility] 07-26-2024 10:19-0400 Systolic blood pressure 152 mm[Hg] Atul Frazier DO Work Phone: [facility] 07-26-2024 09:28-0400 Heart rate 70 /min Atul Frazier DO Work Phone: [facility] 07-26-2024 09:27-0400 Body height 152.4 cm Atul Frazier DO Work Phone: [facility] 07-26-2024 09:27-0400 Body mass index (BMI) [Ratio] 34.96 kg/m2 Atul Frazier DO Work Phone: [facility] 07-26-2024 09:27-0400 Body weight 81.19 kg Atul Frazier DO Work Phone: [facility] 06-13-2024 12:00-0400 Body temperature 98.01 [degF] Angelica Sotelo MD Work Phone: [facility] 06-13-2024 12:00-0400 Diastolic blood pressure 61 mm[Hg] Angelica Sotelo MD Work Phone: [facility] 06-13-2024 12:00-0400 Heart rate 71 /min Angelica Sotelo MD Work Phone: [facility] 06-13-2024 12:00-0400 Respiratory rate 16 /min Angelica Sotelo MD Work Phone: [facility] 06-13-2024 12:00-0400 SaO2% (BldA) [Mass fraction] 96 % Angelica Sotelo MD Work Phone: [facility] 06-13-2024 12:00-0400 Systolic blood pressure 138 mm[Hg] Angelica Sotelo MD Work Phone: [facility] 06-13-2024 02:53-0400 Body height 152.4 cm Angelica Sotelo MD Work Phone: [facility] 06-13-2024 02:53-0400 Body mass index (BMI) [Ratio] 33.2 kg/m2 Angelica Sotelo MD Work Phone: [facility] 06-13-2024 02:53-0400 Body weight 77.11 kg Angelica Sotelo MD Work Phone: [facility] 06-12-2024 20:53-0400 Body temperature 98.6 [degF] Angelica Sotelo MD [facility] 12-28-2023 12:00-0500 Body height 149.86 cm Tayla Torres Other Answer.To Other 12-28-2023 12:00-0500 Body mass index (BMI) [Ratio] 35.95 kg/m2 Tayla Torres Other Answer.To Other 12-28-2023 12:00-0500 Body temperature 98.1 [degF] Tayla Torres Other Answer.To Other 12-28-2023 12:00-0500 Body weight 80.74 kg Tayla Torres Other Answer.To Other 12-28-2023 12:00-0500 Respiratory rate 18 /min Tayla Torres Other Answer.To Other 12-28-2023 12:00-0500 SaO2% (BldA) [Mass fraction] 97 % Tayla Torres Other Answer.To Other 05-14-2023 12:05-0400 Body height 152.4 cm Saberr Work Phone: [facility] 05-14-2023 12:05-0400 Body weight 74.84 kg [employer] Phone: [facility] 05-08-2023 11:30-0400 Body height 149.86 cm Courtney Perez Other Answer.To Other 05-08-2023 11:30-0400 Body mass index (BMI) [Ratio] 33.24 kg/m2 Courtney Perez Other Answer.To Other 05-08-2023 11:30-0400 Body temperature 97.7 [degF] Courtney Perez Other Answer.To Other 05-08-2023 11:30-0400 Body weight 74.66 kg Courtney Perez Other Answer.To Other 05-08-2023 11:30-0400 Diastolic blood pressure 66 mm[Hg] Courtney Perez Other Answer.To Other 05-08-2023 11:30-0400 Respiratory rate 18 /min Courtney Weathersley Other Answer.To Other 05-08-2023 11:30-0400 SaO2% (BldA) [Mass fraction] 98 % Courtney Weathersley Other Answer.To Other 05-08-2023 11:30-0400 Systolic blood pressure 154 mm[Hg] Courtney Perez Other Answer.To Other 12-08-2022 16:06-0500 Body height 149.9 cm Stcz 3 [facility] [employer] 12-08-2022 16:06-0500 Body mass index (BMI) [Ratio] 33.73 kg/m2 St[facility] 3 [facility] [employer] 12-08-2022 16:06-0500 Body weight 75.75 kg Stcz 3 [facility] [employer] 07-25-2022 10:25-0400 Body height 149.86 cm Adilia Buck Other Answer.To Other 07-25-2022 10:25-0400 Body mass index (BMI) [Ratio] 35.14 kg/m2 Adilia Buck Other Answer.To Other 07-25-2022 10:25-0400 Body temperature 97.8 [degF] Adilia Buck Other Answer.To Other 07-25-2022 10:25-0400 Body weight 78.93 kg Adilia Cielo Other Answer.To Other 07-25-2022 10:25-0400 Respiratory rate 18 /min Adilia Buck Other Answer.To Other 07-25-2022 10:25-0400 SaO2% (BldA) [Mass fraction] 98 % Adilia Buck Other Answer.To Other 04-06-2022 12:35-0400 Body height 149.86 cm Ava Salvador Other Answer.To Other 04-06-2022 12:35-0400 Body mass index (BMI) [Ratio] 35.95 kg/m2 Ava Salvador Other Answer.To Other 04-06-2022 12:35-0400 Body temperature 98.8 [degF] Ava Salvador Other Answer.To Other 04-06-2022 12:35-0400 Body weight 80.74 kg Ava Salvador Other Answer.To Other 04-06-2022 12:35-0400 Respiratory rate 18 /min Ava Salvador Other Answer.To Other 04-06-2022 12:35-0400 SaO2% (BldA) [Mass fraction] 97 % Ava Salvador Other Answer.To Other 09-09-2021 00:00-0400 90 1 Atul Frazier DO Work Phone: [facility] [employer] [address] [place] Work Phone: Comment on above: FSLDL 09-02-2021 10:49-0400 Heart rate 62 /min Atlu Frazier DO Work Phone: [facility] 250 DO Work Phone: 09-02-2021 10:46-0400 Body height 149.86 cm Atul Frazier DO Work Phone: [facility]b 250 DO Work Phone: 09-02-2021 10:46-0400 Body mass index (BMI) [Ratio] 34.54 kg/m2 Atul Frazier DO Work Phone: [facility] 250 DO Work Phone: 09-02-2021 10:46-0400 Body surface area Derived from formula 1.73 m2 Atul Frazier DO Work Phone: [facility] 250 DO Work Phone: 09-02-2021 10:46-0400 Body weight 77.57 kg Atul Frazier DO Work Phone: [facility] 250 DO Work Phone: 09-02-2021 10:46-0400 Diastolic blood pressure 70 mm[Hg] Atul Frazier DO Work Phone: [facility] 250 DO Work Phone: 09-02-2021 10:46-0400 Systolic blood pressure 138 mm[Hg] Atul Frazier DO Work Phone: [facility] 250 DO Work Phone: 03-07-2021 09:20-0400 BP Diastolic 53 mm[Hg] Bobbi [facility] Work Phone: 03-07-2021 09:20-0400 BP Systolic 136 mm[Hg] Bobbi PanShoutlylur [facility] Work Phone: 03-07-2021 09:20-0400 Pulse (Heart Rate) 81 /min [facility]bi [facility] Work Phone: 03-07-2021 09:20-0400 Pulse Oximetry 97 % Bobbi [facility] Work Phone: 03-07-2021 09:20-0400 Respiratory Rate 21 /min [facility] [employer] Work Phone: 03-07-2021 09:10-0400 Body Temperature 97.7 [degF] Bobbi Lin[employer]r [employer] Work Phone: 03-07-2021 06:58-0400 BMI (Body Mass Index) 37.2 kg/m2 [facility] [employer] Work Phone: 03-07-2021 06:58-0400 Body weight 80.74 kg [facility] [employer] Work Phone: 03-07-2021 06:58-0400 Height 147.3 cm [facility] [employer] Work Phone: 02-26-2021 15:57-0400 BMI (Body Mass Index) 37.2 kg/m2 [facility] [employer] Work Phone: 02-26-2021 15:57-0400 Body weight 80.[address] [employer] Work Phone: 02-26-2021 15:57-0400 Height 147.3 cm [facility] [employer] Work Phone: Encounters Encounter Date Encounter Type Care Provider Facility Start: 01-06-2025 End: 01-06-2025 Telephone encounter Manpreet Membreno MD Work Phone: Ophthalmology Start: 01-01-2025 End: 01-01-2025 Telephone encounter Yolie DAHL [facility] Start: 12-22-2024 End: 12-22-2024 Telephone encounter Mony DAHL [facility] Start: 12-19-2024 End: 12-19-2024 ambulatory Smith Sheikh MD Work Phone: [facility] Work Phone: Start: 12-19-2024 End: 12-19-2024 Departed Referred Smith Sheikh MD Work Phone: [facility] [place] Work Phone: Start: 12-19-2024 End: 12-19-2024 Patient encounter procedure Smith Sheikh MD Work Phone: [facility] Work Phone: Start: 12-01-2024 End: 12-25-2024 Telephone encounter Mony Paula [facility] Start: 12-01-2024 End: 12-01-2024 Patient encounter procedure Smith Sheikh MD Work Phone: [facility] Work Phone: Start: 11-06-2024 End: 11-06-2024 Telephone encounter Kimberly Sam INSPECTION ENGINEER [facility] Start: 11-03-2024 End: 11-03-2024 Office outpatient new 30 minutes Esperanza Cindi RiosIrving [employer] 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 Work Phone: [facility] Comment on above: Anemia, unspecified type (Primary Dx); Diarrhea, unspecified type; Family history of colon cancer Start: 11-03-2024 ambulatory [facility] Cindi IRVING [facility] Start: 10-12-2024 End: 10-12-2024 Orders Only Not In System Ref Prov [facility] Start: 10-10-2024 End: 10-10-2024 Orders Only Gabriela Villatoro DO Work Phone: [facility] Start: 10-09-2024 End: 10-09-2024 Orders Only Not In System Ref Prov [facility] Start: 09-30-2024 End: 09-30-2024 ambulatory Smith Sheikh MD Work Phone: 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 Dx); Keratoconjunctivitis sicca of both eyes not specified as Sjogren's; Bilateral cornea scars; Pseudophakia of both eyes Start: 07-26-2024 End: 07-26-2024 Office outpatient new 45 minutes [facility] DO Work Phone: [facility] Comment on above: History of COVID-19; Essential hypertension; Chest pain, unspecified type; RBBB; Type 2 diabetes mellitus without complication, 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 (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); BMI 34.0-34.9,adult; Never smoked tobacco Start: 07-26-2024 End: 07-26-2024 ambulatory [facility] Start: 06-12-2024 End: 06-14-2024 Emergency department patient [facility] Start: 06-12-2024 End: 06-13-2024 ambulatory SMITH SHEIKH [facility] Start: 06-12-2024 End: 06-13-2024 Emergency department patient visit [facility] DO Work Phone: [facility] Comment on above: COVID-19 (Primary Dx ); Hypertensive urgency; Chest pain, unspecified type; Hyperglycemia; Tachycardia Start: 03-22-2024 End: 03-23-2024 ambulatory TRINIDAD LICONA [facility] Start: 03-13-2024 End: 03-13-2024 ambulatory SMITH SHEIKH Facility:[facility] Start: 03-13-2024 End: 03-13-2024 Patient encounter [...] by physician Trinidad Licona MD Work Phone: [facility] [place] [employer] Comment on above: Canceled (Patient) Start: 02-21-2024 End: 03-22-[address] [facility] Start: 02-02-2024 End: 02-03-2024 ambulatory [facility] Start: 02-02-2024 End: 02-02-2024 Subsequent hospital visit by physician Trinidad Licona MD Work Phone: [facility] [place] [employer] Comment on above: Lumbosacral spondylo sis without myelopathy (Primary Dx) Start: 01-21-2024 End: 02-21-[address] [facility] Start: 12-28-2023 End: 12-28-2023 ambulatory Tayla Torres Other Answer.To Other Start: 12-28-2023 Office outpatient vi sit 25 minutes Tayla Torres [facility] Start: 12-23-2023 End: 01-21-[address] [facility] Start: 11-30-2023 End: 12-03-2023 ambulatory [facility] Start: 11-29-2023 End: 12-23-2023 [facility] Start: 11-08-2023 End: 11-09-2023 ambulatory [facility] Start: 10-26-2023 End: 11-22-2023 ambulatory TRINIDAD LICONA [facility] Start: 10-21-2023 End: 10-22-2023 ambulatory FABI ANTONY [facility] Start: 05-14-2023 ambulatory SMITH GUILLE SHEIKH Facility:[facility] Start: 05-14-2023 Telephone encounter Concepcion Moore DO Work Phone: [facility] [place] Comment on above: Medication Question Start: 05-14-2023 End: 05-14-2023 Patient encounter procedure Concepcion Moore DO Work Phone: [facility] Comment on above: Spinal stenosis of l umbar region, unspecified whether neurogenic claudication present (Primary Dx); Degenerative arthropathy of spinal facet joint; Myalgia; Postural imbalance Start: 05-11-2023 Telephone encounter Concepcion Moore DO Work Phone: [facility] Comment on above: Appointment Cancelle d Start: 05-08-2023 End: 05-08-2023 ambulatory Courtney Perez Other Answer.To Other Start: 05-08-2023 Office outpatient vi sit 15 minutes Courtney Perez [facility] Start: 04-20-2023 End: 04-21-2023 ambulatory SMITH RAGMUSA Facility:[facility] Start: 03-26-2023 End: 03-26-2023 Patient encounter [...] Start: 12-08-2022 End: 12-13-2022 ambulatory BOBBI NUNEZ [facility] Start: 12-08-2022 End: 12-12-2022 Subsequent hospital [...] outpatient vi sit 15 minutes Adilia Buck [facility] Start: 07-25-2022 End: 07-25-2022 ambulatory CORBY STORM . Answer.To Other Start: 07-01-2022 End: 07-02-[address] RONY ARCINIEGA . Facility:[facility] Start: 04-15-2022 Telephone encounter Ava Damon OD Work Phone: Ophthalmology Comment on above: Patient Question Start: 04-07-2022 End: 04-07-2022 Subsequent hospital visit by physician Smith Sheikh MD Work Phone: [facility] Comment on above: Other iron deficienc y anemia Start: 04-06-2022 End: 04-06-2022 ambulatory Ava Salvador Other Answer.To Other Start: 04-06-2022 Office outpatient vi sit 15 minutes Ava Salvador [facility] Start: 02-19-2022 [...] Chart Update Atul veloz DO Work Phone: [facility] [employer] [address] [place] Work Phone: Start: 09-19-2021 [facility], Provider: Atul Frazier, Status: Pen, Time: 10:00 AM Atul Frazier DO Work Phone: [facility] [employer] [address] [place] Work Phone: Start: 09-18-2021 AUDIT Atul veloz DO Work Phone: [facility] [employer] [address] [place] Work Phone: Start: 09-11-2021 [facility], Provider: Atul Frazier, Status: Babatunde, Time: 12:00 PM Atul Frazier DO Work Phone: [facility] [employer] [address] [place] Work Phone: Start: 09-09-2021 Chart Update Atul veloz DO Work Phone: [facility] [employer] [address] [place] Work Phone: Start: 09-02-2021 Office consultation new/estab patient 80 min Atul Frazier DO Work Phone: [facility] [employer] 250 DO Work Phone: Start: 09-02-2021 Patient encounter procedure Atul Frazier DO Work Phone: [facility] 250 DO Work Phone: Start: 03-07-2021 End: [...] only Not In System Ref Prov Start: 07-26-2024 Ecg routine ecg w/least 12 lds w/i&r Atul Frazier DO Work Phone: Start: 06-13-2024 Gluc bld gluc mntr dev cleared fda spec home use Fausto Marcos MD Work Phone: Start: 06-13-2024 TROP I, HIGH SENSITIVITY 3 HOUR Teresa Odom MD Work Phone: Start: 06-13-2024 History of coronary artery bypass grafting History of coronary artery bypass graft Angelica Sotelo MD Work Phone: Start: 06-13-2024 TROP I, HIGH SENSITIVITY 1 HOUR Joyce Krishna [employer] 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 Work Phone: Start: 06-13-2024 Assay of troponin quantitative Joyce Krishna [employer] 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 Work Phone: Start: 06-13-2024 Gluc bld gluc mntr dev cleared fda spec home use Fausto Marcos MD Work Phone: Start: 06-13-2024 Comprehensive metabolic panel Ijeoma Quinn [employer] 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 Work Phone: Start: 06-13-2024 Gluc bld gluc mntr dev cleared fda spec home use Fausto Marcos MD Work Phone: Start: 06-12-2024 Gluc bld gluc mntr dev cleared fda spec home use Fausot Marcos MD Work Phone: Start: 06-12-2024 Radiologic exam chest 2 views Marjorie Ardon DO Work Phone: Start: 06-12-2024 Blood gases any combination ph pco2 po2 co2 hco3 Marjorie Ardon DO Work Phone: Start: 06-12-2024 Ketone bodies serum quantitative Marjorie Ardon DO Work Phone: Start: 06-12-2024 Comprehensive metabolic panel Marjorie Ardon DO Work Phone: Start: 06-12-2024 Ecg routine ecg w/least 12 lds trcg only w/o i&r Marjorie Ardon DO Work Phone: Start: 02-02-2024 Glucose blood reagent strip Trinidad [...] 03-03-2021 Assay of folic acid serum Bobbi dalal Work Phone: Start: 03-03-2021 Blood count reticulocyte automated Bobbi Nunez Work Phone: Start: 03-03-2021 Cyanocobalamin vitamin b-12 Bobbi cespedes Work Phone: Start: 03-03-2021 Iron binding capacity Bobbi Kellylu r Work Phone: Cholecystectomy Atul fermin DO Work Phone: Colonoscopy Atul Frazier DO Work Phone: History of coronary artery bypass grafting History of coronary artery bypass graft Marjorie Ardon DO Work Phone: Operation on the ear Atul Frazier DO Work Phone: Ostectomy of calcane us for spur Atul Frazier DO Work Phone: Partial hysterectomy Atul Frazier DO Work Phone: Tonsillectomy Atul veloz DO Work Phone: Plan of Treatment Date Care Activity Detail Author Start: 03-07-2026 Screening for malignant neoplasm of colon [facility] Start: 11-03-2025 Tobacco Screening Tobacco Screening [facility] [employer] [facility] Start: 06-13-2025 Tobacco Screening Tobacco Screening [facility] Start: 03-14-2025 End: 03-14-2025 Patient encounter procedure 03/14/2025 10:30 AM EDT Office Visit [facility] [address] [place] [address] Ava Damon, OD [address] [place] [address] 1 year diabetic eye exam Ophthalmology Comment on above: 1 year diabetic eye exam Start: 03-13-2025 Glaucoma screening Dilated Retinal Exam [facility] Start: 12-19-2024 Bacteria identified in Urine by Culture Urine Culture [facility] Start: 12-19-2024 Urine culture [facility] Start: 12-13-2024 Depression Screen Depression Screen [facility] Start: 11-22-2024 Advance Directive Discussion Advance Directive Discussion [facility] Start: 10-24-2024 End: 10-24-2024 Patient encounter procedure 10/24/2024 11:00 AM EST Office Visit [facility] [address] [place] [address] Esperanza Irving, WE[employer] 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 [address] [place] [address] [facility] Start: 07-23-2024 COVID-19 Vaccine ( season) COVID-19 Vaccine ( season) [facility] Start: 07-23-2024 Covid-19 Vaccine ( season) Covid-19 Vaccine ( season) [facility] Start: 07-23-2024 COVID-19 Vaccine () COVID-19 Vaccine () [facility] Start: 07-23-2024 Influenza vaccination [facility] Start: 07-06-2024 Hemoglobin A1c measurement HbA1C [facility] Start: 06-22-2024 Influenza vaccination Flu vaccine (Season Ended) [facility] Start: 04-10-2024 End: 04-10-2024 Patient encounter procedure 04/10/2024 2:30 PM EDT Office Visit [facility] [address] [place] [id number] Smith Sheikh MD [address] [place] [id number] 3 month check Smith Sheikh [facility] Comment on above: 3 month check Start: 04-07-2024 Shingles vaccine (2 of 2) Shingles vaccine (2 of 2) [facility] Comment on above: Postponed from 09/17/2021 (Unavailable) Start: 04-03-2024 End: 04-03-2024 Patient encounter procedure 04/03/2024 11:15 AM EDT Office Visit [facility] [address] [place] [id number] Smith Sheikh MD [address] [place] [address] 3 month f/u Smith Sheikh MD [facility] Comment on above: 3 month f/u Start: 03-29-2024 Pneumococcal 65+ years Vaccine (2 - PPSV23 or PCV20) Pneumococcal 65+ years Vaccine (2 - PPSV23 or PCV20) [facility] Comment on above: Postponed from 09/17/2021 (Unavailable) Start: 03-29-2024 Pneumococcal 65+ years Vaccine (2 of 2 - PPSV23 or PCV20) Pneumococcal 65+ years Vaccine (2 of 2 - PPSV23 or PCV20) [facility] Comment on above: Postponed from 09/17/2021 (Unavailable) Start: 03-10-2024 Hepatitis C antibody, confirmatory test DILATED RETINAL EXAM [facility] Start: 12-02-2023 GFR test (Diabetes, CKD 3-4, OR last GFR 15-59) GFR test (Diabetes, CKD 3-4, OR last GFR 15-59) [facility] Start: 11-22-2023 Advance Directive Discussion Advance Directive Discussion [facility] Start: 11-22-2023 Behavioral Health Screening Behavioral Health Screening [facility] Start: 10-21-2023 Depression Screen Depression Screen [facility] [employer] [facility] Start: 10-21-2023 Hemoglobin A1c measurement A1C test (Diabetic or Prediabetic) [facility] Start: 08-29-2023 Lipid panel Lipids [facility] Start: 07-23-2023 Covid-19 Vaccine ( season) Covid-19 Vaccine ( season) [facility] Start: 07-23-2023 COVID-19 Vaccine ( season) COVID-19 Vaccine ( season) [facility] Start: 06-22-2023 Influenza vaccination Flu vaccine (#1) [facility] Start: 04-07-2023 Screening for malignant neoplasm of breast Breast cancer screen [facility] Start: 02-19-2023 Hepatitis C antibody, confirmatory test DILATED RETINAL EXAM [facility] Start: 01-20-2023 End: 01-20-2023 Patient encounter procedure 01/20/2023 Office Visit Family Medicine Smith Sheikh MD [address] [place] [id number] Smith Sheikh MD [facility] Start: 2023 RSV Vaccine (1 - 1-dose 75+ series) RSV Vaccine (1 - 1-dose 75+ series) [facility] Start: 12-22-2022 End: 12-22-2022 Admission to same day surgery center 12/22/2022 Surgery Endoscopy Bobbi Nunez MD [address], [facility] [address] [place] [address] EGD BIOPSY [facility] Comment on above: EGD BIOPSY Start: 12-22-2022 End: 12-22-2022 Egd transoral biopsy single/multiple EGD BIOPSY Gastroesophageal reflux disease without esophagitis 12/22/2022 8:00 AM EST [facility] Start: 12-22-2022 Subsequent hospital visit by physician 12/22/2022 Hospital Encounter Endoscopy Bobbi Nunez MD [address], [address] [address] [facility] Start: 12-08-2022 End: 12-08-2022 Patient encounter procedure 12/08/2022 Appointment Pre-Admission Testing [facility]mit [facility] Start: 11-22-2022 ADVANCE DIRECTIVE DISCUSSION ADVANCE DIRECTIVE DISCUSSION [facility] Start: 11-22-2022 DEPRESSION ASSESSMENT DEPRESSION ASSESSMENT [facility] Start: 11-03-2022 Depression Screen Depression Screen [facility] Start: 08-30-2022 Hemoglobin A1c measurement A1C test (Diabetic or Prediabetic) [facility] Start: 07-23-2022 Influenza vaccination [facility] Start: 07-23-2022 Pneumococcal 65+ years Vaccine (2 - PPSV23 if available, else PCV20) Pneumococcal 65+ years Vaccine (2 - PPSV23 if available, else PCV20) [facility] Start: 07-23-2022 Pneumococcal 65+ years Vaccine (2 - PPSV23 or PCV20) Pneumococcal 65+ years Vaccine (2 - PPSV23 or PCV20) [facility] Start: 05-13-2022 End: 05-13-2022 Patient encounter procedure 05/13/2022 Office Visit Gastroenterology Bobbi Nunez MD [address] [address] [facility] G[facility] Start: 04-22-2022 End: 04-22-2022 Patient encounter procedure 04/22/2022 Office Visit Family Medicine Smith Sheikh MD [address] [place] [address] Smith Sheikh MD [facility] Start: 04-07-2022 Mammography MAMMOGRAM [facility] Start: 02-14-2022 Screening for malignant neoplasm of colon FIT/FOBT: Average risk [facility] [employer] Start: 02-05-2022 Hepatitis C screening Hepatitis C screen [facility] Phone: Comment on above: Postponed from 1950 (Patient Refus ed) Start: 01-24-2022 COVID-19 VACCINE (4 - Booster for Moderna series) COVID-19 VACCINE (4 - Booster for Moderna series) [facility] Start: 01-22-2022 Creatinine measurement Creatinine monitoring [facility] Phone: Start: 01-22-2022 HbA1c (Bld) [Mass fraction] A1C test (Diabetic or Prediabetic) [employer] Phone: Start: 01-22-2022 Lipid panel [facility] Start: 01-22-2022 Potassium monitoring Potassium monitoring [facility] Phone: Start: 01-22-2022 TSH Qn TSH testing [facility] [employer] Phone: Start: 11-22-2021 ADVANCE DIRECTIVE DISCUSSION ADVANCE DIRECTIVE DISCUSSION [facility] Start: 11-21-2021 COVID-19 VACCINE (4 - Booster for Moderna series) COVID-19 VACCINE (4 - Booster for Moderna series) [facility] Start: 11-21-2021 COVID-19 VACCINE (5 - Booster for Moderna series) COVID-19 VACCINE (5 - Booster for Moderna series) [facility] Start: 11-21-2021 COVID-19 Vaccine (5 - Booster) COVID-19 Vaccine (5 - Booster) [facility] Start: 10-30-2021 [facility], Provider: Atul Frazier, Status: Pen, Time: 10:10 AM [facility], Provider: Atul Frazier, Status: Pen, Time: 10:10 AM [facility] DO Work Phone: Start: 09-17-2021 Administration of varicella zoster vaccine Zoster (Shingles) Vaccine (2 of 2) [facility] Start: 09-17-2021 Pneumococcal Vaccine: 50+ (2 of 2 - PPSV23) Pneumococcal Vaccine: 50+ (2 of 2 - PPSV23) [facility] Start: 09-17-2021 Pneumococcal Vaccine: 65+ (2 of 2 - PPSV23 or PCV20) Pneumococcal Vaccine: 65+ (2 of 2 - PPSV23 or PCV20) [facility] Start: 09-17-2021 Pneumococcal Vaccine: 65+ Years (2 of 2 - PPSV23 or PCV20) Pneumococcal Vaccine: 65+ Years (2 of 2 - PPSV23 or PCV20) [facility] Start: 09-17-2021 Shingles vaccine (2 of 2) Shingles vaccine (2 of 2) [facility] Start: 09-17-2021 Shingrix Vaccine (2 of 2) Shingrix Vaccine (2 of 2) [facility] Start: 09-17-2021 Zoster Vaccines (2 of 2) Zoster Vaccines (2 of 2) [facility] Start: 09-11-2021 [facility], Provider: Atul Frazier, Status: Pen, Time: 12:00 PM [facility], Provider: Atul Frazier, Status: Pen, Time: 12:00 PM [facility] [employer] [employer] 250 DO Work Phone: Start: 08-28-2021 HbA1c (Bld) [Mass fraction] A1C test (Diabetic or Prediabetic) [facility] Work Phone: Start: 08-23-2021 DTaP/Tdap/Td vaccine (1 - Tdap) DTaP/Tdap/Td vaccine (1 - Tdap) [employer] Phone: Comment on above: Postponed from 1967 (Not Indicated ) Start: 08-23-2021 Pneumococcal 65+ years Vaccine (1 of 1 - PPSV23) Pneumococcal 65+ years Vaccine (1 of 1 - PPSV23) [employer] Phone: Comment on above: Postponed from 2013 (Not Indicated ) Start: 08-23-2021 Shingles Vaccine (1 of 2) Shingles Vaccine (1 of 2) [employer] Phone: Comment on above: Postponed from 1998 (Not Indicated ) Start: 07-23-2021 Influenza vaccination INFLUENZA (#1) [facility] Start: 03-31-2021 End: 03-31-2021 Office Visit 03/31/2021 Office Visit Gastroenterology [facility]une[facility] [address] [address] [phone] [facility] Start: 03-17-2021 End: 03-17-2021 Office Visit 03/17/2021 Office Visit Family Medicine Smith Sheikh MD [address] [place] [address] [phone] Smith Sheikh MD [facility] Start: 03-07-2021 End: 03-07-2021 Hospital Encounter [facility] Comment on above: EGD Start: 03-03-2021 End: 02-28-2022 COVID-19 [facility] Phone: Comment on above: Expected: 03/03/2021, Expires: 2 Once for 1 Occurrenc es starting 03/03/2021 until 03/03/2021 Start: 03-03-2021 Hospital Encounter 03/03/2021 Hospital Encounter Lab Pre-op testing (Primary Dx) [facility] Covid Screening Comment on above: Pre-op testing (Primary Dx) Start: 02-26-2021 Hemoglobin A1c measurement HbA1C [facility] Start: 02-26-2021 Hemoglobin A1c/Hemoglobin.total in Blood HBA1C [facility] Start: 12-25-2018 Screening for malignant neoplasm of breast Breast cancer screen [facility] Phone: Start: 08-21-2017 Screening for malignant neoplasm of colon Colon Cancer Screen FIT/FOBT [facility] Phone: Start: 07-31-2017 Creatinine measurement Creatinine monitoring [facility] Phone: Start: 07-31-2017 Lipid panel Lipid screen [facility] Phone: Start: 07-31-2017 Potassium monitoring Potassium monitoring [facility] Phone: Start: 07-31-2017 TSH Qn TSH testing [facility] Phone: Start: 11-19-2015 Diabetic foot examination Diabetic foot exam [facility] Start: 11-19-2015 Diabetic retinal exam Diabetic retinal exam [facility] Start: 11-19-2015 Glaucoma screening Diabetic retinal exam [facility] Start: 2013 BONE DENSITY BONE DENSITY [facility] Start: 2013 Fall Risk Screening Fall Risk Screening [facility] Start: 2013 PNEUMOCOCCAL: 65+ (1 - PCV) PNEUMOCOCCAL: 65+ (1 - PCV) [facility] Start: 2013 PNEUMOVAX AGE 65 AND OVER WITH 5YR LOOKBACK (#1) PNEUMOVAX AGE 65 AND OVER WITH 5YR LOOKBACK (#1) [facility] Start: 2013 Screening for osteoporosis Bone Density Screening [facility] Start: 2008 Respiratory Syncytial Virus (RSV) or age 60 yrs+ (1 - 1-dose 60+ series) Respiratory Syncytial Virus (RSV) or age 60 yrs+ (1 - 1-dose 60+ series) [facility] Start: 2008 RSV patients and/or patients aged 60+ years (1 - 1-dose 60+ series) RSV patients and/or patients aged 60+ years (1 - 1-dose 60+ series) [facility] Start: 2008 RSV Vaccine (1 - 1-dose 60+ series) RSV Vaccine (1 - 1-dose 60+ series) [facility] Start: 1998 SHINGRIX VACCINE (1 of 2) SHINGRIX VACCINE (1 of 2) [facility] Start: 1993 COLOGUARD (FIT-DNA) COLOGUARD (FIT-DNA) [facility] Start: 1993 Colonoscopy COLONOSCOPY [facility] Start: 1993 COLORECTAL CANCER SCREENING COLORECTAL CANCER SCREENING [facility] Start: [address] COLONOGRAPHY [facility] Start: 1993 FECAL OCCULT BLOOD FECAL OCCULT BLOOD [facility] Start: 1993 Screening for malignant neoplasm of colon [facility] Start: 1993 SIGMOIDOSCOPY SIGMOIDOSCOPY [facility] Start: 1970 DTaP/Tdap/Td Vaccines (1 - Tdap) DTaP/Tdap/Td Vaccines (1 - Tdap) [facility] Start: 1967 DTaP,Tdap and Td Vaccines (1 - Tdap) DTaP,Tdap and Td Vaccines (1 - Tdap) [facility] Start: 1967 DTaP/Tdap/Td vaccine (1 - Tdap) DTaP/Tdap/Td vaccine (1 - Tdap) [facility] Start: 1967 Urine microalbumin profile [facility] Start: 1966 ANNUAL PCP TEAM CHRONIC DISEASE VISIT ANNUAL PCP TEAM CHRONIC DISEASE VISIT [facility] Start: 1966 Anxiety Screening Anxiety Screening [facility] Start: 1966 Depression Screening Depression Screening [facility] Start: 1966 Diabetes mellitus screening Diabetes Screening [facility] Start: 1966 Diabetic microalbuminuria test Diabetic microalbuminuria test [employer] Work Phone: Start: 1966 Hepatitis B surface antibody level LDL CHOLESTEROL [facility] Start: 1966 HEPATITIS C SCREENING HEPATITIS C SCREENING [facility] Start: 1966 Hepatitis C screening [facility] Start: 1966 Urine screening for protein [facility] Start: 1960 Adult depression screening assessment DEPRESSION SCREENING [facility] Start: 1958 3 comp foot exam completed DIABETIC FOOT EXAM [facility] Start: 1958 Diabetic foot examination Diabetic Foot Exam [facility] Start: 1958 Hepatitis B screening URINE ALBUMIN:CREATININE RATIO [facility] Start: 1954 PNEUMOCOCCAL: 65+ (1 - PCV) PNEUMOCOCCAL: 65+ (1 - PCV) [facility] Start: 1948 Annual Wellness Visit (AWV) Annual Wellness Visit (AWV) [facility] Start: 1948 Lipid panel Lipid Panel [facility] Start: 1948 Medicare Annual Wellness Visit Medicare Annual Wellness Visit (AWV) [facility] Start: 1948 Thyroid stimulating hormone measurement TSH Level [facility] Bedside Glucose *Place/Obtain serum glucose if >500(>600 MRH) per glucometer. Bedside Glucose *Place/Obtain serum glucose if >500(>600 MRH) per glucometer. Point of Care Testing Routine 4X Daily (AC and at bedtime) until discontinued starting 06/13/2024, 1 completed [employer] Work Phone: Comment on above: 4X Daily (AC and at bedtime) until disco ntinued starting 06/13/2024, 1 completed CBC W Auto Different ial panel - Blood CBC auto differential Lab Routine Lab max of 3 days, Daily, for lab use only until discontinued starting 06/13/2024, 1 completed [employer] Comment on above: Lab max of 3 days, Daily, for lab use on ly until discontinued starting 06/13/2024, 1 completed End: 11-03-2025 Colonoscopy Colonoscopy GI Routine Anemia, unspecified type 1 Occurrences starting 11/03/2024 until 11/03/2025 [employer] Work Phone: Comment on above: 1 Occurrences starting 11/03/2024 until 11/03/2025 Comprehensive metabo lic 2000 panel - Serum or Plasma Comprehensive metabolic panel Lab Routine Lab max of 3 days, Daily, for lab use only until discontinued starting 06/13/2024, 1 completed [employer] Comment on above: Lab max of 3 days, Daily, for lab use on ly until discontinued starting 06/13/2024, 1 completed COVID-19 COVID-19 Lab Rou [facility] 03/03/2021 1:21 PM EDT [facility] Work Phone: Magnesium [Mass/volu me] in Serum or Plasma Magnesium Lab Routine Lab max of 3 days, Daily, for lab use only until discontinued starting 06/13/2024, 1 completed [employer] Comment on above: Lab max of 3 days, Daily, for lab use on ly until discontinued starting 06/13/2024, 1 completed Oxygen Therapy - Maintain SpO2: 90%; *TAILER IN Guidelines for O2: Yes; Document: [email or web address]\epi c\EPIC_Reference\Orders\ Respiratory Care Guidelines\CPG Oxygen 2022.pdf Oxygen Therapy - Maintain SpO2: 90%; *TAILER IN Guidelines for O2: Yes; Document: \[email or web address]\ep ic\EPIC_Reference\Order s\Respiratory Care Guidelines\CPG Oxygen 2022.pdf Respiratory Care Routine As Needed until discontinued starting 06/12/2024 [employer] Comment on above: As Needed until discontinued starting Oxygen therapy [[facility] Data Set] Initiate Oxygen Therapy Protocol Respiratory Care Routine Daily until discontinued starting 03/07/2021 [facility] Phone: Comment on above: Daily until discontinued starting 2020 Surgical Pathology Surgical Path ology Lab Routine Release Upon Ordering for 1 Occurrences starting 03/07/2021 [facility] Phone: Comment on above: Release Upon Ordering for 1 Occurrences starting 03/07/2021 End: 03-03-2021 Tissue Transglutaminase, IgA Tissue Transglutaminase, IgA Lab Routine Anemia, unspecified type 1 Occurrences starting 03/03/2021 until 03/03/2021 [facility] Phone: Comment on above: 1 Occurrences starting 03/03/2021 until 03/03/2021 Tissue Transglutamin ase, IgA Tissue Transglutaminase, IgA Lab Routine Anemia, unspecified type 03/03/2021 10:40 AM EDT [facility] Phone: End: 12-02-2022 Tissue Transglutaminase, IgA [facility] [employer] Phone: Comment on above: 1 Occurrences starting 12/02/2022 until 12/02/2022 [facility] Immunizations Immunization Date Immunization Notes Care Provider [facility] 08-28-2022 influenza, high dose seasonal, preservative-free Smith Sheikh MD Work Phone: [facility] 08-28-2022 influenza virus vaccine, unspecified formulation Ava Damon OD Work Phone: [facility] 09-26-2021 COVID-19, PFIZER PUR PLE top, DILUTE for use, (age 12 y+), 30mcg/0.3mL Trinidad Licona MD Work Phone: [facility] 07-23-2021 pneumococcal conjuga te vaccine, 13 valent Atul Frazier DO Work Phone: [facility] 07-23-2021 zoster vaccine recombinant Atul Frazier DO Work Phone: [facility] [employer] 250 DO Work Phone: 07-23-2021 zoster vaccine, unspecified formulation Not Ref Prov [facility] 02-23-2021 COVID-19, Moderna, Primary or Immunocompromised, PF, 100mcg/0.5mL Smith Sheikh MD Work Phone: [facility] Work Phone: 02-20-2021 Moderna COVID-19 Vaccine 100 MCG/0.5ML Intramuscular Suspension Atul Frazier DO Work Phone: [facility] Work Phone: 01-31-2021 COVID-19, Moderna, P F, 100mcg/0.5mL Stcz 4 [facility] Work Phone: 01-23-2021 Moderna COVID-19 Vaccine 100 MCG/0.5ML Intramuscular Suspension Atul Frazier DO Work Phone: [facility] DO Work Phone: 10-26-2020 Influenza, High-dose , Quadv, 65 yrs +, IM (Fluzone) Stcz 4 [facility] Phone: Payers Date Payer Category Payer Self-pay 2019 Auto Insurance [employer] INSURANCE [id number] 2017 Medicare HUMANA MEDICARE HUMANA MEDICARE PPO [id number] 2017-Present [phone] [place] [address] [id number] 2017 Medicare [id number] 2017 Medicare (Managed Care) HUMANA M EDICARE [id number] 2017 Medicare O HUMANA MEDICARE [id number] 1959 Private Health Insurance [id number] [id number]. 2.7.3.935877.315 1948 Unknown [id number] 2.16.840.1.396912.3.579. 2.593 1948 Unknown [id number] 2.16.840.1.066573.3.579. 2.593 1948 Unknown [id number] 2.16.840.1.929490.3.579. 2.593 1948 Unknown [id number] 2.16.840.1.607656.3.579. 2.593 1948 Unknown [id number] 2.16.840.1.266911.3.579. 2.593 1948 Unknown [id number] 2.16.840.1.132822.3.579. 2.593 1948 Unknown [id number] 2.16.840.1.340500.3.579. 2.593 1948 Unknown [id number] 2.16.840.1.299680.3.579. 2.593 1948 Unknown [id number] 2.16.840.1.487034.3.579. 2.593 1948 Unknown [id number] 2.16.840.1.306860.3.579. 2.593 1948 Unknown [id number] 2.16.840.1.439431.3.579. 2.593 1948 Unknown [id number] 2.16.840.1.924958.3.579. 2.176 1948 Unknown [id number] 2.16.840.1.885204.3.579. 2.176 1948 Unknown [id number] 2.16.840.1.875834.3.579. 2.176 1948 Unknown [id number] 2.16.840.1.056030.3.579. 2.175 1948 Unknown [id number] 2.16.840.1.077377.3.579. 2.175 1948 Unknown [id number] 2.16.840.1.042530.3.579. 2.175 1948 Unknown [id number] 2.16.840.1.531530.3.579. 2.175 1948 Unknown [id number] 2.16.840.1.381267.3.579. 2.175 1948 Unknown [id number] 2.16.840.1.578347.3.579. 2.175 1948 Unknown [id number] 2.16.840.1.584750.3.579. 2.1286 1948 Unknown [id number] 2.16.840.1.829067.3.579. 2.1286 1948 Unknown [id number] 2.16.840.1.449782.3.579. 2.1286 1948 Unknown [id number] 2.16.840.1.341431.3.579. 2.1286 1948 Unknown [id number] 2.16.840.1.065749.3.579. 2.1286 1948 Unknown [id number] 2.16.840.1.579756.3.579. 2.1286 1948 Unknown [id number] 2.16.840.1.995684.3.579. 2.1286 1948 Unknown [id number] 2..840.1.466716.3.579. 2.1244 1948 Unknown [id number] 2.840.1.535020.3.579. 2.1286 Medicare Medicare [id number] Unknown HUMANA GOLD CHOICE Unknown [id number] 2.840.1.748345.3.579. 2.531 Unknown [id number] 840.1.778720.3.579. 2.531 Social History Date Type Detail Facility Start: 02-26-2021 End: 06-13-2024 Tobacco smoking status NJIS Never smoker [facility] Start: 02-26-2021 End: 06-13-2024 Tobacco use and exposure Never used [facility] Phone: Start: 02-26-2021 End: 11-03-2024 Alcohol intake Current non-drinker of alcohol (finding) [facility] Phone: Start: 02-05-2021 History SDOH Social Connections Phone 5 [facility] Phone: Start: 02-05-2021 End: 02-19-2022 History SDOH Social Connections Get Together 1 [facility] Phone: Start: 02-05-2021 History SDOH Social Connections Zoroastrian 3 [facility] Phone: Start: 02-05-2021 History SDOH Physical Activity DPW 0 [facility] Phone: Start: 02-05-2021 History SDOH Education 12 [facility] Phone: Start: 02-05-2021 History SDOH IPV Fear 2 [facility] Phone: Start: 05-19-2013 Alcohol Comment never drank [facility] Phone: Start: 1950 Sex Assigned At Not on file [employer] Work Phone: Start: 01-23-2022 End: 07-26-2024 Exposure to SARS-CoV-2 (event) Not sure [employer] Work Phone: Start: 01-02-2021 End: 11-03-2021 No alcohol use No alcohol use -[facility] 250 DO Work Phone: Start: 02-19-2022 End: 08-29-2024 Alcohol intake Lifetime non-drinker (finding) [facility] Start: 01-02-2021 End: 02-05-2021 Sex Assigned At [facility] [employer] Other Start: 08-28-2022 History SDOH Financial 4 [facility] Work Phone: Do you belong to any clubs or organizations such as religion groups, unions, fraternal or athletic groups, or school groups? Yes [employer] Are you now , , , , never or living with a partner? [facility] How hard is it for y ou to pay for the very basics like food, housing, medical care, and heating Not hard at all [facility] Do you feel stress - tense, restless, nervous, or anxious, or unable to sleep at night because your mind is troubled all the time - these days [OSQ] Not at all [employer] [employer] (I/We) worried alfonzo er (my/our) food would run out before (I/we) got money to buy more. Never true [facility] At any time in the p ast 12 months, were you homeless or living in correction [including now]? No [employer] Start: 10-03-2024 End: 12-20-2024 Sex Patient sex unknown (finding) [facility] Start: 1950 Sex Assigned At Female [facility] Start: 06-27-2015 Sex Female (finding) [employer] [facility] [employer] Procedure Code Equipment Code Equipment Origin al Text Equipment Identifier Dates 100 each by In V itro route 2 times daily As needed. [id number] Start: 02-24-2018 1 kit by Does no t apply route 2 times daily [id number] Start: 02-24-2018 Patient test blo od sugar BID [id number] Start: 02-24-2018 End: 12-08-2022 Lens Iol +21.5 D iop Acrsf Iq - [id number] Start: 01-10-2014 100 each by In V itro route 2 times daily As needed. [id number] Start: 07-28-2022 Goals Date Patient Goal Desired Activity /State Personal health goal Comment on above: Formatting of this n ote might be different from the original. Evaluation of progress towards goal: In progress: DC to home today. Clinical Notes 11-03-2010 to 01-06-2025 Telephone Encounter - Manpreet Membreno MD - 01/06/2025 12:36 PM ESTTelephone Encounter - Manpreet Membreno MD - 01/06/2025 12:36 PM EST Note Date & Type Note Facility 01-06-2025 Telephone encount er Note Received page that patient had called. Spoke to them on the phone at 12:36 PM. Patient has a history of chronic allergic conjunctivitis OU. Last seen by Dr. Damon 08/2024 who rx maxitrol gtt TID for 1 week Patient reports she has been using the mixtrol gtt TID since last visit with minimal improvement and is requesting refill since she is out. She reports stable tearing and discharge OU and intermittent sharp pain OS which lasts a few seconds. Denies change in vision or new symptoms since last eye exam. Discussed that the maxtrol was only suppose to be for one week per Dr. Damon's note. Rec PF AFTs 6x daily for now. Rec calling Dr. Damon's office for sooner apt Return precautions given. Discussed that if any significant change in symptoms, worsening vision, pain or new symptoms, please call back or go to the emergency room. Manpreet Membreno MD Ophthalmology Resident [facility] Work Phone: 01-06-2025 Miscellaneous Notes Formattin g of this note might be different from the original. Received page that patient had called. Spoke to them on the phone at 12:36 PM. Patient has a history of chronic allergic conjunctivitis OU. Last seen by Dr. Damon 08/2024 who rx maxitrol gtt TID for 1 week Patient reports she has been using the mixtrol gtt TID since last visit with minimal improvement and is requesting refill since she is out. She reports stable tearing and discharge OU and intermittent sharp pain OS which lasts a few seconds. Denies change in vision or new symptoms since last eye exam. Discussed that the maxtrol was only suppose to be for one week per Dr. Damon's note. Rec PF AFTs 6x daily for now. Rec calling Dr. Damon's office for sooner apt Return precautions given. Discussed that if any significant change in symptoms, worsening vision, pain or new symptoms, please call back or go to the emergency room. Manpreet Membreno MD Ophthalmology Resident documented in this encounter [facility] 01-01-2025 Miscellaneous Notes Formattin g of this note might be different from the original. I called [facility] and spoke with Milagros in the surgery scheduling department - I cancelled Marah's procedure scheduled for 01/10/[address] Villatoro. documented in this encounter [facility] 01-01-2025 Telephone encount er Note I called [facility] and spoke with Milagros in the surgery scheduling department - I cancelled Marah's procedure scheduled for 01/10/[address] Villatoro. [facility] 12-22-2024 Miscellaneous Notes Formattin g of this note might be different from the original. Called patient to confirm her appointment for 2/3/25, patient stated she is going to cancel due to not having any issues at the moment. I informed patient that Dr. Villatoro will not be doing surgery at [facility] moving forward, and if she chose to reschedule she would be seen at [facility]. Patient stated she did not want to go to [place]. Informed patient if she wanted to go to [facility] she should reach out to her PCP to get a referral to a provider who goes to [facility]. Patient verbalized understanding. documented in this encounter [facility] 12-22-2024 Telephone encount er Note Called patient to confirm her appointment for 12/25/24, patient stated she is going to cancel due to not having any issues at the moment. I informed patient that Dr. Byrdwei will not be doing surgery at [facility] moving forward, and if she chose to reschedule she would be seen at [facility]. Patient stated she did not want to go to [place]. Informed patient if she wanted to go to [facility] she should reach out to her PCP to get a referral to a provider who goes to [facility]. Patient verbalized understanding. [facility] 12-01-2024 Miscellaneous Notes Formattin g of this note might be different from the original. Patient called into the office requesting to reschedule her colonoscopy that is scheduled on 12/06/24 at [facility]. Patient will need [facility] Patient has updated H&P visit with Esperanza on 12/25/24 Patient is sick and has bronchitis. documented in this encounter [facility] 12-01-2024 Telephone encount er Note Patient called into the office requesting to reschedule her colonoscopy that is scheduled on 12/06/24 at [facility]. Patient will need updated H&P prior to next sugery date of 01/10/25. Patient has updated H&P visit with Esperanza on 12/25/24 Patient is sick and has bronchitis. [facility] 12-01-2024 Evaluation note Diagnosis Onset Date Resolution Bronchitis acute December 01, 2024 10:14am Acute UTI acute December 19, 2024 9:24am [facility] Work Phone: [phone] Miscellaneous Notes* Telephone Encounter - Kimberly Sam CMA - 11/06/2024 8:48 AM EST The patient left her cane at her appointment on 11/03/24. Her son will let her know that she can pick it up. [facility] Tele[facility] encounter Note* Telephone Encounter - Kimberly Sam CMA - 11/06/2024 8:48 AM EST The patient left her cane at her appointment on 11/03/24. Her son will let her know that she can pick it up. [facility] History of Present illness Narrative* Esperanza Irving APRN-PRODUCTION LINE TECHNICIAN - 11/03/2024 1:30 PM EST Images from the original note were not included. Chief Complaint: Anemia History of Present Illness Marah Silva is a 74 y.o. female who presents to the office after recently being admitted to [facility] with hematemesis and black tarry stools. She was also anemic with a hemoglobin ofaround 7-8. EGD was performed that revealed ulcers and medium-sized hiatal hernia. She is taking her pantoprazole and carafate as prescribed. She is here to schedule colonoscopy. She can not rememberwhen her last 1 was. There is a family history of colon cancer in 2 of her sisters and 1 brother. She reports diarrhea with 3-4 bowel movements daily and an upset stomach. Review of Systems Constitutional: Negative for fever and unexpected weight change. HENT: Negative for trouble swallowing. Respiratory: Positive for shortness of breath. SOB with exertion Cardiovascular: Negative for chest pain. Gastrointestinal: Positive for abdominal pain and diarrhea. Negative for nausea, vomiting, constipation and blood in stool. Genitourinary: Negative for dysuria and difficulty urinating. Musculoskeletal: Positive for back pain. Negative for gait problem. Skin: Negative for rash and wound. Neurological: Negative for dizziness, weakness and light-headedness. Hematological: Does not bruise/bleed easily. Psychiatric/Behavioral: Negative for confusion. Past Medical History: Diagnosis Date Allergic COPD (chronic obstructive pulmonary disease) [place] COVID-19 06/12/2024 Diabetes ([facility] Gastric ulcer Hiatal hernia Hyperlipidemia Hypertension Hypothyroid Past Surgical History: Procedure Laterality Date CHOLECYSTECTOMY PARTIAL HYSTERECTOMY TONSILLECTOMY Allergies Allergen Reactions Bactrim [Sulfamethoxazole-Trimethoprim] Ciprofloxacin Morphine Motrin [Ibuprofen] Penicillins Zyrtec [Cetirizine] Current Outpatient Medications: amLODIPine (NORVASC) 2.5 mg tablet, Take 1 tablet (2.5 mg total) by mouth in the morning., Disp: , Rfl: ascorbic acid (VITAMIN C ORAL), Take by mouth., Disp: , Rfl: aspirin 81 mg, Take 1 tablet (81 mg total) by mouth in the morning., Disp: , Rfl: atorvastatin (LIPITOR) 10 mg tablet, Take 1 tablet (10 mg total) by mouth in the morning., Disp: , Rfl: biotin 1 mg capsule, Take by mouth., Disp: , Rfl: ferrous sulfate 325 (65 FE) mg tablet, Take 1 tablet (325 mg total) by mouth in the morning and 1 tablet (325 mg total) in the evening. Take with meals. Wednesday, Wednesday, WEDNESDAY., Disp: , Rfl: fluticasone propion-salmeteroL (ADVAIR) 250-50 mcg/dose DISKUS, Inhale 1 puff in the morning and 1 puff before bedtime., Disp: , Rfl: fluticasone propionate (FLONASE) 50 mcg/actuation nasal spray, Administer 1 spray into each nostrilin the morning., Disp: , Rfl: levothyroxine (SYNTHROID, LEVOTHROID) 100 MCG tablet, Take 1 tablet (100 mcg total) by mouth in themorning., Disp: , Rfl: loratadine (CLARITIN) 10 mg tablet, Take 1 tablet (10 mg total) by mouth in the morning., Disp: , Rfl: metFORMIN (GLUCOPHAGE) 500 mg tablet, Take 1 tablet (500 mg total) by mouth in the morning and 1 tablet (500 mg total) in the evening. Take with meals., Disp: , Rfl: mometasone (NASONEX) 50 mcg/actuation nasal spray, Administer 2 sprays into each nostril in the morning., Disp: , Rfl: pantoprazole (PROTONIX) 40 mg EC tablet, Take 1 tablet (40 mg total) by mouth in the morning and atbedtime., Disp: 180 tablet, Rfl: 1 ramipriL (ALTACE) 10 mg capsule, Take 1 capsule (10 mg total) by mouth in the morning., Disp: , Rfl: sucralfate (CARAFATE) 1 gram tablet, Take 1 tablet (1 g total) by mouth in the morning and 1 tablet(1 g total) at noon and 1 tablet (1 g total) in the evening and 1 tablet (1 g total) before bedtime., Disp: , Rfl: tiZANidine (ZANAFLEX) 2 mg tablet, Take 1 tablet (2 mg total) by mouth in the morning and at bedtime., Disp: , Rfl: sod sulf-pot chloride-mag sulf 1.479-0.188- 0.225 gram tablet, Please see instructional sheet givenby physicians office., Disp: 24 tablet, Rfl: 0 Social History Socioeconomic History Marital status: Spouse name: Not on file Number of children: Not on file Years of education: Not on file Highest education level: Not on file Occupational History Not on file Tobacco Use Smoking status: Never Smokeless tobacco: Never Vaping Use Vaping status: Never Used Substance and Sexual Activity Alcohol use: No Drug use: No Sexual activity: Defer Other Topics Concern Not on file Social History Narrative Not on file Social Drivers of Health Financial Resource Strain: Low Risk (06/29/2024) Received from [facility] Overall Financial Resource Strain (CARDIA) Difficulty of Paying Living Expenses: Not hard at all Food Insecurity: No Food Insecurity (06/29/2024) Received from [facility] Hunger Vital Sign Worried About Running Out of Food in the Last Year: Never true Ran Out of Food in the Last Year: Never true Transportation Needs: Unknown (06/29/2024) Received from [facility] PRAPARE - Transportation Lack of Transportation (Medical): Not on file Lack of Transportation (Non-Medical): No Physical Activity: Insufficiently Active (08/21/2024) Received from [facility] Exercise Vital Sign Days of Exercise per Week: 3 days Minutes of Exercise per Session: 10 min Stress: No Stress Concern Present (02/05/2021) Received from [facility] [place] of Occupational Health - Occupational Stress Questionnaire Feeling of Stress : Not at all Social Connections: Socially Integrated (02/05/2021) Received from [facility] Social Connection and Isolation Panel [NHANES] Frequency of Communication with Friends and Family: More than three times a week Frequency of Social Gatherings with Friends and Family: Never Attends Rastafari Services: More than 4 times per year Active Member of Clubs or Organizations: Yes Attends Club or Organization Meetings: More than 4 times per year Marital Status: Interpersonal Safety: Not At Risk (06/13/2024) Humiliation, Afraid, Rape, and Kick questionnaire Fear of Current or Ex-Partner: No Emotionally Abused: No Physically Abused: No Sexually Abused: No Housing Instability: Unknown (06/29/2024) Received from [facility] Housing Stability Vital Sign Unable to Pay for Housing in the Last Year: Not on file Number of Places Lived in the Last Year: Not on file Unstable Housing in the Last Year: No Family History Problem Relation Age of Onset Colon cancer Sister Colon cancer Sister Colon cancer Brother Objective Physical Exam Constitutional: General: She is not in acute distress. Appearance: Normal appearance. She is not ill-appearing. HENT: Head: Normocephalic and atraumatic. Mouth/Throat: Mouth: Mucous membranes are moist. Eyes: Pupils: Pupils are equal, round, and reactive to light. Cardiovascular: Rate and Rhythm: Normal rate. Pulmonary: Effort: Pulmonary effort is normal. No respiratory distress. Abdominal: General: There is no distension. Palpations: Abdomen is soft. Tenderness: There is no abdominal tenderness. There is no guarding. Musculoskeletal: General: Normal range of motion. Skin: General: Skin is warm and dry. Neurological: Mental Status: She is alert and oriented to person, place, and time. Mental status is at baseline. Vital Signs: Blood pressure 143/64, pulse 88, weight 81.2 kg (179 lb). Respiratory Source: No data recorded Admission Weight: Weight: 81.2 kg (179 lb) Labs Lab Results Component Value Date WBC 8.5 06/13/2024 HGB 10.3 (L) 06/13/2024 HCT 30.8 (L) 06/13/2024 MCV 90 06/13/2024 PLT 200 06/13/2024 Lab Results Component Value Date GLU 233 (H) 06/13/2024 CALCIUM 8.5 06/13/2024 K 3.8 06/13/2024 CO2 21 (L) 06/13/2024 CL 107 06/13/2024 BUN 17 06/13/2024 CREATININE 0.62 06/13/2024 No results found for: AMYLASE Lab Results Component Value Date LIPASE 19 02/14/2021 Lab Results Component Value Date ALT 34 (H) 06/13/2024 AST 31 06/13/2024 ALKPHOS 69 06/13/2024 Lab Results Component Value Date INR 1.0 01/20/2020 PROTIME 11.6 01/20/2020 Assessment Anemia Family history of colon cancer in 3 first-degree relatives Plan Colonoscopy with possible biopsy and/or polypectomy. Risks, benefits, and alternatives discussed with patient. Educated on bowel evacuation preparation. Patient verbalizes understanding and wishes toproceed. Evaluation included: Preparing to see the patient (e.g., review of tests) Obtaining and/or reviewing separately obtained history Performing a medically appropriate examination and/or evaluation Counseling and educating the patient/family/caregiver Referring and communicating with other health critical care educator Anemia, unspecified type [D64.9] PRATEEK PIÑA [facility] General [facility] [place] This note was created with the assistance of a speech recognition program. While intending to generate a timely document that accurately reflects the content of the visit, no guarantee can be provided that every grammatical or spelling mistake has been or will be identified or corrected. Thank you for your understanding. PRATEEK Piña 11/03/24 1404 documented in this [facility]11-19-2024 Miscellaneous Notes* Telephone Encounter - Courtney Barbosa CMA - 10/10/2024 9:52 AM EST ----- Message from Dr. Gabriela Villatoro, sent at 10/10/2024 6:51 AM EST ----- [...] sucralfate rx. ThanksDr. Keyes documented in this [facility]11-19-2024 Telephone encounter Note* Telephone Encounter - Courtney Barbosa CMA - 10/10/2024 9:52 AM EST ----- Message from Dr. Gabriela Villatoro DO [...] ThanksDr. Keyes [facility]11-07-2024 Telephone encounter Note* Telephone Encounter - Astrid Latham - 09/28/2024 8:54 AM EST Pt is requesting a new eye drop prescription or another alternative due to the rx that was given being to expensive. Pt states they are 25 dollars and too much. Would like something else. Would like something sent to [facility] in [place] on [address] [facility]11-07-2024 Miscellaneous Notes* Telephone Encounter - Astrid Latham - 09/28/2024 8:54 AM EST Pt is requesting a new eye drop prescription or another alternative due to the rx that was given being to expensive. Pt states they are 25 dollars and too much. Would like something else. Would like something sent to [facility] in [place] on [address] documented in this [facility]24 NoteHNO ID: [id number] Author: AVA DAMON OD Service: ? Author Type: CORE COMPOSER MACHINE TENDER Type: Progress Notes Filed: 08/29/2024 15:26 Note [...] Ava Damon OD August 29, 2024 3:24 [facility] History of Present illness Narrative* Ava Damon OD - 08/29/2024 3:24 PM EDT ASSESSMENT/PLAN: 1. Other chronic allergic conjunctivitis of [...] 29, 2024 3:24 PM documented in this [facility]Park[facility] Instructions* Patient Instructions* Ava Damon OD - 08/29/2024 11:44 AM EDT Short term: start maxitrol drops (steroid) 3 times daily in both eyes for 5 days, then stop. This should help you feel better quickly manager intermediate: also start allergy drops (either Rx, or OTC Pataday, Zaditor) twice a day. Go back to [facility] for artificial tears documented in this encounterPark[facility]24 History of Present illness Narrative* Atul Frazier, DO - 07/26/2024 9:30 AM EDT Cardiology Consultation- New Consult Reason for referral: Chest pain, history of COVID HPI: Marah Silva is a 74 y.o. female seen in repeat cardiology consultation at the request of [facility] primary care physician with chest pain in May, associated with acute COVID illness. Shehas no current chest discomfort at this time she has chronic fatigue likely secondary to long-haul symptoms from her COVID illness. She was hospitalized in [place] at [facility] details of her cardiology consultation at that time areavailable and reviewed she did not have any stress testing that she is aware of nor that we can find in the EMR. She is otherwise doing well able to complete daily activities however with new symptoms of fatigue but no significant exertional shortness of breath or angina. She does have a history of heart catheterization with myself less than 2 years ago revealing normalcoronary arteries and normal left ventricular function Her comorbidities are noted for hypertension and diabetes and mild obesity ECG demonstrates sinus rhythm with right bundle branch block and is unchanged from the past After detailed review of her records, review of her cardiac catheterization report from less than 2years ago, and lack of current symptomatology; my current recommendations are simply to escalate her amlodipine to 5 mg daily to treat her underlying blood pressure (currently 152/68) follow-up with her primary care physician, we can otherwise see her as needed. No further diagnostic testing is warranted at this time Past Medical History: She has no past medical history on file. Surgical History: She has a past surgical history that includes Other surgical history (09/02/2021); Other surgical history (09/02/2021); Other surgical history (09/02/2021); Other surgical history (09/02/2021); Othersurgical history (09/02/2021); Other surgical history (09/02/2021); and Other surgical history (10/15/2021). Family History: Family History Problem Relation Name Age of Onset Heart disease Mother Ulcers Mother Diabetes Father Heart attack Father Diabetes Sister Heart disease Sister Diabetes Brother Social History: Social History Tobacco Use Smoking status: Never Smokeless tobacco: Never Substance Use Topics Alcohol use: Never Allergies: Morphine, Cetirizine, Ciprofloxacin, Penicillins, Sulfa (sulfonamide antibiotics), and Sulfamethoxazole-trimethoprim Current Medications: Current Outpatient Medications: acetaminophen (Tylenol) 500 mg tablet, Take 1 tablet (500 mg) by mouth every 6 hours if needed., Disp: , Rfl: albuterol 90 mcg/actuation inhaler, Inhale 2 puffs every 6 hours if needed., Disp: , Rfl: amLODIPine (Norvasc) 2.5 mg tablet, Take 1 tablet (2.5 mg) by mouth once daily., Disp: , Rfl: ascorbate calcium, vitamin C, 500 mg tablet, 1 tablet once daily., Disp: , Rfl: aspirin 81 mg EC tablet, Take 1 tablet (81 mg) by mouth once daily., Disp: , Rfl: atorvastatin (Lipitor) 10 mg tablet, Take 1 tablet (10 mg) by mouth once daily., Disp: , Rfl: biotin 10 mg tablet, Take 1 tablet (10 mg) by mouth once daily., Disp: , Rfl: coenzyme Q-10 200 mg capsule, Take 1 capsule (200 mg) by mouth once daily., Disp: , Rfl: cyanocobalamin (Vitamin B-12) 100 mcg tablet, Take 1 tablet (100 mcg) by mouth once daily., Disp: ,Rfl: ferrous sulfate 325 (65 Fe) MG EC tablet, Take by mouth. 1 tablet 3 times a week, Disp: , Rfl: fluticasone (Flonase) 50 mcg/actuation nasal spray, USE 2 SPRAY(S) IN EACH NOSTRIL ONCE DAILY FOR 14 DAYS, Disp: , Rfl: fluticasone propion-salmeteroL (Advair Diskus) 250-50 mcg/dose diskus inhaler, USE 1 INHALATION TWICE A DAY, Disp: , Rfl: ipratropium-albuteroL (Duo-Neb) 0.5-2.5 mg/3 mL nebulizer solution, Inhale 4 times a day., Disp: , Rfl: ketotifen (Zaditor) 0.025 % (0.035 %) ophthalmic solution, INSTILL 1 DROP INTO AFFECTED EYE TWICE DAILY FOR 7 DAYS, Disp: , Rfl: levothyroxine (Synthroid, Levoxyl) 100 mcg tablet, Take 1 tablet (100 mcg) by mouth once daily., Disp: , Rfl: loratadine (Claritin) 10 mg tablet, Take 1 tablet (10 mg) by mouth. 1 tablet 3 times a week, Disp: , Rfl: LYCOPENE ORAL, Take 1 tablet by mouth once daily., Disp: , Rfl: meloxicam (Mobic) 7.5 mg tablet, Take 1 tablet (7.5 mg) by mouth once daily., Disp: , Rfl: metFORMIN (Glucophage) 500 mg tablet, 1 tablet (500 mg) 2 times daily (morning and late afternoon)., Disp: , Rfl: pantoprazole (ProtoNix) 40 mg EC tablet, Take 1 tablet (40 mg) by mouth once daily in the morning. Take before meals., Disp: , Rfl: ramipril (Altace) 10 mg capsule, Take 1 capsule (10 mg) by mouth once daily., Disp: , Rfl: sucralfate (Carafate) 1 gram tablet, Take 1 tablet (1 g) by mouth 4 times a day., Disp: , Rfl: tiZANidine (Zanaflex) 2 mg tablet, Take 1 tablet (2 mg) by mouth twice a day., Disp: , Rfl: Vitals: Vitals: 07/26/24 0927 07/26/24 0928 07/26/24 1019 BP: 144/74 144/76 152/64 BP Location: Left arm Right arm Left arm Patient Position: Sitting Sitting Sitting Pulse: 70 70 Weight: 81.2 kg (179 lb) Height: 1.524 m (5') EKG done in office today Review of Systems Constitutional: Positive for malaise/fatigue. Cardiovascular: Positive for chest pain, irregular heartbeat, leg swelling and palpitations. Neurological: Positive for numbness. All other systems reviewed and are negative. Objective Physical Exam Constitutional: Appearance: Normal appearance. HENT: Nose: Nose normal. Neck: Vascular: No carotid bruit. Cardiovascular: Rate and Rhythm: Normal rate. Pulses: Normal pulses. Heart sounds: Normal heart sounds. Pulmonary: Effort: Pulmonary effort is normal. Abdominal: General: Bowel sounds are normal. Palpations: Abdomen is soft. Musculoskeletal: General: Normal range of motion. Cervical back: Normal range of motion. Right lower leg: No edema. Left lower leg: No edema. Skin: General: Skin is warm and dry. Neurological: General: No focal deficit present. Mental Status: She is alert. Psychiatric: Mood and Affect: Mood normal. Behavior: Behavior normal. Thought Content: Thought content normal. Judgment: Judgment normal. Assessment and Plan: 1. History of COVID-19 2. Essential hypertension 3. Chest pain, unspecified type 4. RBBB 5. 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 BMI 34.0-34.9,adult 7. Never smoked tobacco Scribe Attestation By signing my name below, IAlana RN , Scribe attest that this documentation has been prepared under the direction and in the presence of Raquel Frazier DO. Provider Attestation - Scribe documentation All medical record entries made by the Scribe were at my direction and personally dictated by me. Ihave reviewed the chart and agree that the record accurately reflects my personal performance of the history, physical exam, discussion and plan. documented in this [facility] Work Phone: 1(609) 580-291709-04-2024 Instructions* Patient Instructions* Alana Arroyo RN - 07/26/2024 9:30 AM EDT Please bring all medicines, vitamins, and herbal supplements with you when you come to the office. Prescriptions will not be filled unless you are compliant with your follow up appointments or have a follow up appointment scheduled as per instruction of your physician. Refills should be requested at the time of your visit. BMI was above normal measurement. Current weight: 81.2 kg (179 lb) Weight change since last visit (-) denotes wt loss 8 lbs Weight loss needed to achieve BMI 25: 51.3 Lbs Weight loss needed to achieve BMI 30: 25.7 Lbs Provided instructions on dietary changes Provided instructions on exercise. Increase amlodipine to 5 mg daily Follow up ordered as needed only documented in this encounterUK [facility] Work Phone: 1(431) 809-258107-23-2024 Hospital course Narrative* Angelica Sotelo MD - 06/13/2024 5:56 PM EDT Images from the original note were not included. [facility] [address] [facility] [id number] Hospital Medicine Discharge Summary Patient: Marah Silva Date of : 1950 Room: [facility] Encounter date: 06/13/24 DATE OF ADMISSION: 06/12/2024 DATE OF DISCHARGE:06/13/2024 DISCHARGE DIAGNOSES Active Problems: COVID-19 virus infection Chronic obstructive pulmonary disease with acute lower respiratory infection ([facility]) History of coronary artery bypass graft Type 2 diabetes mellitus without complication, without long-term current use of insulin ([facility] Cardiology PCP: Smith Sheikh MD [facility] HOSPITAL COURSE SUMMARY Marah Silva is a 74 y.o. female who presents with chest pain and SOB. She states that Wednesday she was seen at the urgent care in [place] due to had congestion, body aches and a sinus infection. She had a COVID test that was positive and she was given Paxlovid to take at home. She has a past medical history hypertension, diabetes mellitus, COPD, CABG. She is also a smoker. EKG showed sinus tach. However her troponins peaked at 116, down trending to 100. Cardiology was consulted and felt that she would need a stress test in the future but nothing acutely needing to be done intervention hidalgo.On examination patient is feeling fatigued. Code Status: Full Code Labs Recent Results (from the past 48 hour(s)) CBC auto differential Collection Time: 06/12/24 7:41 PM Result Value Ref Range White Blood Cells 6.4 4.0 - 11.0 X10E9/L RBC count 3.62 (L) 3.80 - 5.20 X10E12/L Hemoglobin 10.7 (L) 11.7 - 15.5 g/dL Hematocrit 32.5 (L) 35 - 47 % MCV 90 80 - 100 fL MCH 29.6 27 - 34 pg MCHC 32.9 32 - 36 g/dL RDW 16.2 (H) 11.5 - 15.0 % Platelets 212 150 - 450 X10E9/L MPV 7.7 7 - 12 fL % neutrophils 87.9 % % lymphocytes 8.7 % % monocytes 3.3 % % eosinophils 0.0 % % Basophils 0.1 % Neutrophils Absolute (A) 5.7 1.5 - 6.6 X10E9/L Lymphocytes Absolute 0.6 (L) 1.0 - 3.5 X10E9/L Monocytes Absolute 0.2 0 - 0.9 X10E9/L Eosinophils Absolute 0.0 0.0 - 0.4 X10E9/L Basophils Absolute 0.0 0.0 - 0.2 X10E9/L Comprehensive metabolic panel Collection Time: 06/12/24 7:41 PM Result Value Ref Range Sodium 134 134 - 146 mmol/L Potassium, Bld 3.7 3.5 - 5.0 mmol/L Chloride 103 98 - 109 mmol/L CO2 15 (L) 22 - 32 mmol/L Anion gap 16 (H) 5 - 15 mmol/L BUN 22 5 - 27 mg/dL Creatinine 0.92 0.40 - 1.00 mg/dL Glucose 362 (H) 65 - 99 mg/dL Calcium 9.0 8.5 - 10.5 mg/dL Total Protein 6.9 6.0 - 8.0 g/dL Albumin 3.8 3.2 - 5.3 g/dL Alkaline Phosphatase 78 39 - 130 U/L AST 31 0 - 41 U/L ALT 30 0 - 31 U/L Total bilirubin 0.2 (L) 0.3 - 1.2 mg/dL eGFR (CKD-EPI)non-race dependent 65 >59 ml/min/1.73sq.m D-Dimer Collection Time: 06/12/24 7:41 PM Result Value Ref Range D-dimer <150 <255 ng/mL DDU B-type natriuretic peptide Collection Time: 06/12/24 7:41 PM Result Value Ref Range BNP 71 <100.0 pg/mL Troponin I, High Sensitivity Collection Time: 06/12/24 7:41 PM Result Value Ref Range Troponin I, High Sensitivity 7 <16 ng/L Troponin I, High Sensitivity 1 Hour Collection Time: 06/12/24 8:45 PM Result Value Ref Range 1 Hour Trop I, High Sensitivity 10 <16 ng/L Acetone, (BetaHydroxybutyrate, Ketone) quantitative, serum Collection Time: 06/12/24 8:45 PM Result Value Ref Range Beta hydroxy buterate 0.20 0.02 - 0.27 mmol/L Procalcitonin Collection Time: 06/12/24 8:45 PM Result Value Ref Range Procalcitonin 0.05 (H) <0.05 ng/mL Blood gas, venous Collection Time: 06/12/24 8:51 PM Result Value Ref Range Sample Type VENOUS Body Temp 37.0 37.0 C pH, Venous 7.334 7.320 - 7.420 PCO2, Venous 30.0 (L) 35 - 50 MMHG PO2, Venous 33 30 - 50 MMHG Base,Deficit 9.0 (H) 0.0 - 2.0 MMOL/L Portable HCO3 16.0 (L) 20.0 - 24.0 MMOL/L % O2 Sat 60.0 (L) >80.0 % Gali's Test NA Sample Site N/A Oxygen Source RoomAir Bedside Glucose *Place/Obtain serum glucose if >500(>600 MRH) per glucometer. Collection Time: 06/12/24 11:31 PM Result Value Ref Range Bedside glucose 327 (H) 65 - 99 mg/dL Bedside Glucose *Place/Obtain serum glucose if >500(>600 MRH) per glucometer. Collection Time: 06/13/24 12:54 AM Result Value Ref Range Bedside glucose 276 (H) 65 - 99 mg/dL Comprehensive metabolic panel Collection Time: 06/13/24 5:21 AM Result Value Ref Range Sodium 136 134 - 146 mmol/L Potassium, Bld 3.8 3.5 - 5.0 mmol/L Chloride 107 98 - 109 mmol/L CO2 21 (L) 22 - 32 mmol/L Anion gap 8 5 - 15 mmol/L BUN 17 5 - 27 mg/dL Creatinine 0.62 0.40 - 1.00 mg/dL Glucose 159 (H) 65 - 99 mg/dL Calcium 8.5 8.5 - 10.5 mg/dL Total Protein 6.3 6.0 - 8.0 g/dL Albumin 3.4 3.2 - 5.3 g/dL Alkaline Phosphatase 69 39 - 130 U/L AST 31 0 - 41 U/L ALT 34 (H) 0 - 31 U/L Total bilirubin 0.3 0.3 - 1.2 mg/dL eGFR (CKD-EPI)non-race dependent >90 >59 ml/min/1.73sq.m Magnesium Collection Time: 06/13/24 5:21 AM Result Value Ref Range Magnesium 1.5 (L) 1.8 - 2.6 mg/dL CBC auto differential Collection Time: 06/13/24 5:21 AM Result Value Ref Range White Blood Cells 8.5 4.0 - 11.0 X10E9/L RBC count 3.43 (L) 3.80 - 5.20 X10E12/L Hemoglobin 10.3 (L) 11.7 - 15.5 g/dL Hematocrit 30.8 (L) 35 - 47 % MCV 90 80 - 100 fL MCH 29.9 27 - 34 pg MCHC 33.4 32 - 36 g/dL RDW 16.0 (H) 11.5 - 15.0 % Platelets 200 150 - 450 X10E9/L MPV 8.0 7 - 12 fL % neutrophils 82.9 % % lymphocytes 12.1 % % monocytes 4.8 % % eosinophils 0.0 % % Basophils 0.2 % Neutrophils Absolute (A) 7.1 (H) 1.5 - 6.6 X10E9/L Lymphocytes Absolute 1.0 1.0 - 3.5 X10E9/L Monocytes Absolute 0.4 0 - 0.9 X10E9/L Eosinophils Absolute 0.0 0.0 - 0.4 X10E9/L Basophils Absolute 0.0 0.0 - 0.2 X10E9/L Bedside Glucose *Place/Obtain serum glucose if >500(>600 [facility]) per glucometer. Collection Time: 06/13/24 8:09 AM Result Value Ref Range Bedside glucose 153 (H) 65 - 99 mg/dL Troponin I, High Sensitivity Collection Time: 06/13/24 10:56 AM Result Value Ref Range Troponin I, High Sensitivity 116 (H) <16 ng/L Troponin I, High Sensitivity 1 Hour Collection Time: 06/13/24 12:02 PM Result Value Ref Range 1 Hour Trop I, High Sensitivity 116 (H) <16 ng/L Troponin I, High Sensitivity 3 Hour Collection Time: 06/13/24 2:37 PM Result Value Ref Range 3 Hour Trop I, High Sensitivity 100 (H) <16 ng/L Bedside Glucose *Place/Obtain serum glucose if >500(>600 MRH) per glucometer. Collection Time: 06/13/24 4:44 PM Result Value Ref Range Bedside glucose 233 (H) 65 - 99 mg/dL Radiology X-ray chest 2 views Result Date: 06/12/2024 Narrative: Procedure: Chest x-ray performed Number of views:2 History:Chest pain Covid positive Comparison:01/20/2020 Findings: The heart and lungs show no acute findings, and the mediastinum and hilaare grossly negative . Impression: 1. No acute change. Finalized by Marvin Ackerman MD on 06/12/2024 9:29 PM DISCHARGE INSTRUCTION Discharge disposition: Home Condition:Stable Activity: activity as tolerated Diet: Adult diet Regular Texture Adult diet Follow up: Smith Sheikh MD within 7-[address] Odom, cardiology in 1-2 weeks once COVID infection clears Labs/Imaging/Pathology: na Discharge Medications: Medication List START taking these medications Instructions Last Dose Given Next Dose Due predniSONE 20 mg tablet Commonly known as: DELTASONE Start taking on: June 14, 2024 Take 2 tablets (40 mg total) by mouth daily with breakfast for 5 days. CONTINUE taking these medications Instructions Last Dose Given Next Dose Due amLODIPine 2.5 mg tablet Commonly known as: NORVASC Take 1 tablet (2.5 mg total) by mouth in the morning. aspirin 81 mg Take 1 tablet (81 mg total) by mouth in the morning. atorvastatin 10 mg tablet Commonly known as: LIPITOR Take 1 tablet (10 mg total) by mouth in the morning. biotin 1 mg capsule Take by mouth. ferrous sulfate 325 (65 FE) mg tablet Take 1 tablet (325 mg total) by mouth daily with breakfast. Wednesday, Wednesday, WEDNESDAY fluticasone propion-salmeteroL 250-50 mcg/dose DISKUS Commonly known as: ADVAIR Inhale 1 puff in the morning and 1 puff before bedtime. fluticasone propionate 50 mcg/actuation nasal spray Commonly known as: FLONASE Administer 1 spray into each nostril in the morning. levothyroxine 100 MCG tablet Commonly known as: SYNTHROID, LEVOTHROID Take 1 tablet (100 mcg total) by mouth in the morning. meloxicam 7.5 mg tablet Commonly known as: MOBIC Take 1 tablet (7.5 mg total) by mouth in the morning. * metFORMIN 1000 mg tablet Commonly known as: GLUCOPHAGE Take 0.5 tablets (500 mg total) by mouth daily with breakfast. * metFORMIN 500 mg tablet Commonly known as: GLUCOPHAGE Take 1 tablet (500 mg total) by mouth nightly. vicmjezy-hna-XF-lycopen-lutein 0.4 mg-300 mcg- 250 mcg tablet Commonly known as: CENTRUM SILVER Take by mouth. pantoprazole 20 mg EC tablet Commonly known as: PROTONIX Take 1 tablet (20 mg total) by mouth in the morning. ramipriL 10 mg capsule Commonly known as: ALTACE Take 1 capsule (10 mg total) by mouth in the morning. sucralfate 1 gram tablet Commonly known as: CARAFATE Take 1 tablet (1 g total) by mouth in the morning and 1 tablet (1 g total) at noon and 1 tablet (1 g total) in the evening and 1 tablet (1 g total) before bedtime. tiZANidine 2 mg tablet Commonly known as: ZANAFLEX Take 1 tablet (2 mg total) by mouth in the morning and at bedtime. traMADoL 50 mg tablet Commonly known as: ULTRAM Take 1 tablet (50 mg total) by mouth 2 (two) times a day as needed for pain. vitamin B-12 100 MCG tablet Generic drug: cyanocobalamin Take 1 tablet (100 mcg total) by mouth in the morning. * This list has 2 medication(s) that are the same as other medications prescribed for you. Read thedirections carefully, and ask your doctor or other care provider to review them with you. STOP taking these medications celecoxib 200 mg capsule Commonly known as: CeleBREX CEPHalexin 500 mg capsule Commonly known as: KEFLEX meclizine 25 mg tablet Commonly known as: ANTIVERT ondansetron ODT 4 mg disintegrating tablet Commonly known as: ZOFRAN ODT Where to Get Your Medications These medications were sent to [facility] [address] [place] [address] [address] [facility] [phone] [facility] [address] [address] predniSONE 20 mg tablet >30 minutes were spent on discharging this patient. Joyce Krishna APRN-ALICJA 06/13/2024 5:56 PM [facility] Internal Medicine 7AM-7PM (all facilities): EpicChat or page through [employer]. 7PM-7AM ([facility], [facility] Psychiatry and Inpatient Rehab): EpicChat or page, [phone]. 7PM-7AM ([facility] and [facility] Rehab): EpicChat or page through [employer]. Joyce Krishna APRN-ALICJA 06/13/24 [id number] I have seen and evaluated the patient, and have reviewed the history above and agree. I have repeated the vargas portions of the physical exam and concur with the TED findings. I have reviewed all laboratory findings and imaging reports/films. I agree with the plan as noted above Dr Angelica Sotelo MD, [facility] 06/13/2024 8:29 PM [facility] History and physical note* Angelica Sotelo MD - 06/13/2024 5:41 PM EDT Images from the original note were not included. [facility] [address] [id number] Hospital Medicine History & Physical Patient: Marah Silva Date of : 1950 Room: [facility]/01 PCP: Smith Sheikh MD Admission date: 06/12/2024 7:06 PM Encounter date: 06/13/24 Hospital Day: 2 SUBJECTIVE Marah Silva is a 74 y.o. female who presents with chest pain and SOB. She states that Wednesday she was seen at the urgent care in [place] due to had congestion, body aches and a sinus infection. She had a COVID test that was positive and she was given Paxlovid to take at home. She has a past medical history hypertension, diabetes mellitus, COPD, CABG. She is also a smoker. EKG showed sinus tach. However her troponins peaked at 1:16 a.m.. Cardiology was consulted and felt that she would need astress test in the future but nothing acutely needing to be done intervention hidalgo. On examination patient is feeling fatigued. Allergies: Bactrim [sulfamethoxazole-trimethoprim], Ciprofloxacin, Morphine, Motrin [ibuprofen], Penicillins, and Zyrtec [cetirizine] Prior to Admission medications Medication Sig Start Date End Date Taking? Authorizing Provider amLODIPine (NORVASC) 2.5 mg tablet Take 1 tablet (2.5 mg total) by mouth in the morning. Yes Not InSystem Ref Prov aspirin 81 mg Take 1 tablet (81 mg total) by mouth in the morning. Yes Not In System Ref Prov atorvastatin (LIPITOR) 10 mg tablet Take 1 tablet (10 mg total) by mouth in the morning. Yes Not InSystem Ref Prov biotin 1 mg capsule Take by mouth. Yes Not In System Ref Prov cyanocobalamin (vitamin B-12) 100 MCG tablet Take 1 tablet (100 mcg total) by mouth in the morning.Yes Not In System Ref Prov ferrous sulfate 325 (65 FE) mg tablet Take 1 tablet (325 mg total) by mouth daily with breakfast. Wednesday, Wednesday, WEDNESDAY Yes Not In System Ref Prov fluticasone propion-salmeteroL (ADVAIR) 250-50 mcg/dose DISKUS Inhale 1 puff in the morning and 1 puff before bedtime. Yes Not In System Ref Prov fluticasone propionate (FLONASE) 50 mcg/actuation nasal spray Administer 1 spray into each nostril in the morning. Yes Not In System Ref Prov levothyroxine (SYNTHROID, LEVOTHROID) 100 MCG tablet Take 1 tablet (100 mcg total) by mouth in the morning. 05/29/22 Yes Not In System Ref Prov meloxicam (MOBIC) 7.5 mg tablet Take 1 tablet (7.5 mg total) by mouth in the morning. Yes Not In System Ref Prov metFORMIN (GLUCOPHAGE) 1000 mg tablet Take 0.5 tablets (500 mg total) by mouth daily with breakfast. Yes Not In System Ref Prov metFORMIN (GLUCOPHAGE) 500 mg tablet Take 1 tablet (500 mg total) by mouth nightly. Yes Not In System Ref Prov bxiilngb-aqy-EA-lycopen-lutein (CENTRUM SILVER) 0.4 mg-300 mcg- 250 mcg tablet Take by mouth. Yes Not In System Ref Prov pantoprazole (PROTONIX) 20 mg EC tablet Take 1 tablet (20 mg total) by mouth in the morning. Yes Not In System Ref Prov ramipriL (ALTACE) 10 mg capsule Take 1 capsule (10 mg total) by mouth in the morning. Yes Not In System Ref Prov sucralfate (CARAFATE) 1 gram tablet Take 1 tablet (1 g total) by mouth in the morning and 1 tablet (1 g total) at noon and 1 tablet (1 g total) in the evening and 1 tablet (1 g total) before bedtime.Yes Not In System Ref Prov tiZANidine (ZANAFLEX) 2 mg tablet Take 1 tablet (2 mg total) by mouth in the morning and at bedtime. Yes Not In System Ref Prov traMADol (ULTRAM) 50 mg tablet Take 1 tablet (50 mg total) by mouth 2 (two) times a day as needed for pain. Yes Not In System Ref Prov celecoxib (CeleBREX) 200 mg capsule Take 1 capsule by mouth in the morning. Patient not taking: Reported on 06/13/2024 07/06/22 Not In System Ref Prov CEPHalexin (KEFLEX) 500 mg capsule Take 500 mg by mouth in the morning and 500 mg at noon and 500 mg in the evening and 500 mg before bedtime. Patient not taking: Reported on 06/13/2024 Not In System Ref Prov meclizine (ANTIVERT) 25 mg tablet Take 1 tablet (25 mg total) by mouth 3 (three) times a day as needed for dizziness. Patient not taking: Reported on 08/14/2022 02/14/21 Alan Harris, meclizine (ANTIVERT) 25 mg tablet Take 1 tablet (25 mg total) by mouth 3 (three) times a day as needed for dizziness. Patient not taking: Reported on 06/13/2024 08/14/22 Bobby Ortiz MD ondansetron ODT (ZOFRAN ODT) 4 mg disintegrating tablet Dissolve 1 tablet (4 mg total) on tongue every 8 (eight) hours as needed for nausea for up to 10 doses. Patient not taking: Reported on 06/13/2024 08/14/22 Bobby Ortiz MD ondansetron ODT (ZOFRAN-ODT) 4 mg disintegrating tablet Dissolve 1 tablet (4 mg total) on tongue every 8 (eight) hours as needed for nausea for up to 10 doses. Patient not taking: Reported on 08/14/2022 02/14/21 Alan Harris DO predniSONE (DELTASONE) 20 mg tablet Take 2 tablets (40 mg total) by mouth daily with breakfast for 5 days. 06/14/24 06/19/24 Joyce Krishna APRN-[facility] Code Status: Full Code Past Medical History: Patient has a past medical history of Allergic, COPD (chronic obstructive pulmonary disease) ([facility] COVID-19 (06/12/2024), Diabetes ([facility]), Hyperlipidemia, Hypertension, and Hypothyroid. Past Surgical History: Patient has a past surgical history that includes Cholecystectomy; Partial hysterectomy; and Tonsillectomy. Family History: Patient's family history is not on file. Social History: Patient reports that she has never smoked. She has never used smokeless tobacco. She reports that she does not drink alcohol and does not use drugs. Review of Systems Constitutional: Positive for fatigue and fever. HENT: Negative. Eyes: Negative. Respiratory: Positive for shortness of breath. Cardiovascular: Positive for chest pain. Gastrointestinal: Negative. Endocrine: Negative. Genitourinary: Negative. Musculoskeletal: Negative. Skin: Negative. Allergic/Immunologic: Negative. Neurological: Negative. Hematological: Negative. Psychiatric/Behavioral: Negative. OBJECTIVE BP 138/61 Pulse 71 Temp 36.7 C (98 F) (Oral) Resp 16 Ht 152.4 cm (5') Wt 77.1 kg (170 lb) SpO2 96% BMI 33.20 kg/m Temp: [36.5 C (97.7 F)-36.9 C (98.4 F)] 36.7 C (98 F) Pulse: [71-116] 71 Resp: [15-22] 16 BP: (117-180)/(58-83) 138/61 SpO2: [95 %-100 %] 96 % O2 Device: None (Room air) Intake/Output Summary (Last 24 hours) at 06/13/2024 1750 Last data filed at 06/12/2024 2334 Gross per 24 hour Intake 1000.14 ml Output -- Net 1000.14 ml Physical Exam Vitals and nursing note reviewed. Constitutional: Appearance: She is ill-appearing. HENT: Head: Normocephalic and atraumatic. Eyes: Pupils: Pupils are equal, round, and reactive to light. Neck: Vascular: No carotid bruit. Cardiovascular: Rate and Rhythm: Regular rhythm. Tachycardia present. Pulses: Normal pulses. Heart sounds: Normal heart sounds. Pulmonary: Effort: Pulmonary effort is normal. Breath sounds: Rhonchi present. Abdominal: General: Bowel sounds are normal. Palpations: Abdomen is soft. Musculoskeletal: Cervical back: Normal range of motion and neck supple. No rigidity or tenderness. Right lower leg: No edema. Left lower leg: No edema. Lymphadenopathy: Cervical: No cervical adenopathy. Skin: General: Skin is warm and dry. Capillary Refill: Capillary refill takes less than 2 seconds. Neurological: General: No focal deficit present. Mental Status: She is alert and oriented to person, place, and time. Psychiatric: Mood and Affect: Mood normal. Behavior: Behavior normal. Thought Content: Thought content normal. Judgment: Judgment normal. Medications Scheduled: aspirin, 81 mg, oral, Daily atorvastatin, 10 mg, oral, Nightly heparin (porcine), 5,000 Units, subcutaneous, Q8H TAHIRA insulin lispro, 2-10 Units, subcutaneous, TID with meals insulin lispro, 2-8 Units, subcutaneous, Nightly pantoprazole, 40 mg, oral, QAM AC predniSONE, 40 mg, oral, Daily with breakfast tiZANidine, 4 mg, oral, Once Infusions: dextrose 5 % in water, 100 mL/hr dextrose 5 % in water, 100 mL/hr sodium chloride 0.9 %, 20 mL/hr As Needed: acetaminophen calcium gluconate calcium gluconate calcium gluconate dextrose dextrose dextrose 5 % in water dextrose 5 % in water dextrose 50 % in water (D50W) dextrose 50 % in water (D50W) glucagon (human recombinant) glucagon (human recombinant) hydrALAZINE HYDROcodone-acetaminophen magnesium sulfate magnesium sulfate ondansetron potassium chloride OR potassium chloride sennosides-docusate sodium sodium phosphate IV OR sodium phosphate IV - central line OR sod phos di, mono-K phos mono sodium chloride sodium chloride sodium chloride 0.9 % Allergies: Bactrim [sulfamethoxazole-trimethoprim], Ciprofloxacin, Morphine, Motrin [ibuprofen], Penicillins, and Zyrtec [cetirizine] Labs Recent Results (from the past 24 hour(s)) CBC auto differential Collection Time: 06/12/24 7:41 PM Result Value Ref Range White Blood Cells 6.4 4.0 - 11.0 X10E9/L RBC count 3.62 (L) 3.80 - 5.20 X10E12/L Hemoglobin 10.7 (L) 11.7 - 15.5 g/dL Hematocrit 32.5 (L) 35 - 47 % MCV 90 80 - 100 fL MCH 29.6 27 - 34 pg MCHC 32.9 32 - 36 g/dL RDW 16.2 (H) 11.5 - 15.0 % Platelets 212 150 - 450 X10E9/L MPV 7.7 7 - 12 fL % neutrophils 87.9 % % lymphocytes 8.7 % % monocytes 3.3 % % eosinophils 0.0 % % Basophils 0.1 % Neutrophils Absolute (A) 5.7 1.5 - 6.6 X10E9/L Lymphocytes Absolute 0.6 (L) 1.0 - 3.5 X10E9/L Monocytes Absolute 0.2 0 - 0.9 X10E9/L Eosinophils Absolute 0.0 0.0 - 0.4 X10E9/L Basophils Absolute 0.0 0.0 - 0.2 X10E9/L Comprehensive metabolic panel Collection Time: 06/12/24 7:41 PM Result Value Ref Range Sodium 134 134 - 146 mmol/L Potassium, Bld 3.7 3.5 - 5.0 mmol/L Chloride 103 98 - 109 mmol/L CO2 15 (L) 22 - 32 mmol/L Anion gap 16 (H) 5 - 15 mmol/L BUN 22 5 - 27 mg/dL Creatinine 0.92 0.40 - 1.00 mg/dL Glucose 362 (H) 65 - 99 mg/dL Calcium 9.0 8.5 - 10.5 mg/dL Total Protein 6.9 6.0 - 8.0 g/dL Albumin 3.8 3.2 - 5.3 g/dL Alkaline Phosphatase 78 39 - 130 U/L AST 31 0 - 41 U/L ALT 30 0 - 31 U/L Total bilirubin 0.2 (L) 0.3 - 1.2 mg/dL eGFR (CKD-EPI)non-race dependent 65 >59 ml/min/1.73sq.m D-Dimer Collection Time: 06/12/24 7:41 PM Result Value Ref Range D-dimer <150 <255 ng/mL DDU B-type natriuretic peptide Collection Time: 06/12/24 7:41 PM Result Value Ref Range BNP 71 <100.0 pg/mL Troponin I, High Sensitivity Collection Time: 06/12/24 7:41 PM Result Value Ref Range Troponin I, High Sensitivity 7 <16 ng/L Troponin I, High Sensitivity 1 Hour Collection Time: 06/12/24 8:45 PM Result Value Ref Range 1 Hour Trop I, High Sensitivity 10 <16 ng/L Acetone, (BetaHydroxybutyrate, Ketone) quantitative, serum Collection Time: 06/12/24 8:45 PM Result Value Ref Range Beta hydroxy buterate 0.20 0.02 - 0.27 mmol/L Procalcitonin Collection Time: 06/12/24 8:45 PM Result Value Ref Range Procalcitonin 0.05 (H) <0.05 ng/mL Blood gas, venous Collection Time: 06/12/24 8:51 PM Result Value Ref Range Sample Type VENOUS Body Temp 37.0 37.0 C pH, Venous 7.334 7.320 - 7.420 PCO2, Venous 30.0 (L) 35 - 50 MMHG PO2, Venous 33 30 - 50 MMHG Base,Deficit 9.0 (H) 0.0 - 2.0 MMOL/L Portable HCO3 16.0 (L) 20.0 - 24.0 MMOL/L % O2 Sat 60.0 (L) >80.0 % Gali's Test NA Sample Site N/A Oxygen Source RoomAir Bedside Glucose *Place/Obtain serum glucose if >500(>600 MRH) per glucometer. Collection Time: 06/12/24 11:31 PM Result Value Ref Range Bedside glucose 327 (H) 65 - 99 mg/dL Bedside Glucose *Place/Obtain serum glucose if >500(>600 MRH) per glucometer. Collection Time: 06/13/24 12:54 AM Result Value Ref Range Bedside glucose 276 (H) 65 - 99 mg/dL Comprehensive metabolic panel Collection Time: 06/13/24 5:21 AM Result Value Ref Range Sodium 136 134 - 146 mmol/L Potassium, Bld 3.8 3.5 - 5.0 mmol/L Chloride 107 98 - 109 mmol/L CO2 21 (L) 22 - 32 mmol/L Anion gap 8 5 - 15 mmol/L BUN 17 5 - 27 mg/dL Creatinine 0.62 0.40 - 1.00 mg/dL Glucose 159 (H) 65 - 99 mg/dL Calcium 8.5 8.5 - 10.5 mg/dL Total Protein 6.3 6.0 - 8.0 g/dL Albumin 3.4 3.2 - 5.3 g/dL Alkaline Phosphatase 69 39 - 130 U/L AST 31 0 - 41 U/L ALT 34 (H) 0 - 31 U/L Total bilirubin 0.3 0.3 - 1.2 mg/dL eGFR (CKD-EPI)non-race dependent >90 >59 ml/min/1.73sq.m Magnesium Collection Time: 06/13/24 5:21 AM Result Value Ref Range Magnesium 1.5 (L) 1.8 - 2.6 mg/dL CBC auto differential Collection Time: 06/13/24 5:21 AM Result Value Ref Range White Blood Cells 8.5 4.0 - 11.0 X10E9/L RBC count 3.43 (L) 3.80 - 5.20 X10E12/L Hemoglobin 10.3 (L) 11.7 - 15.5 g/dL Hematocrit 30.8 (L) 35 - 47 % MCV 90 80 - 100 fL MCH 29.9 27 - 34 pg MCHC 33.4 32 - 36 g/dL RDW 16.0 (H) 11.5 - 15.0 % Platelets 200 150 - 450 X10E9/L MPV 8.0 7 - 12 fL % neutrophils 82.9 % % lymphocytes 12.1 % % monocytes 4.8 % % eosinophils 0.0 % % Basophils 0.2 % Neutrophils Absolute (A) 7.1 (H) 1.5 - 6.6 X10E9/L Lymphocytes Absolute 1.0 1.0 - 3.5 X10E9/L Monocytes Absolute 0.4 0 - 0.9 X10E9/L Eosinophils Absolute 0.0 0.0 - 0.4 X10E9/L Basophils Absolute 0.0 0.0 - 0.2 X10E9/L Bedside Glucose *Place/Obtain serum glucose if >500(>600 MRH) per glucometer. Collection Time: 06/13/24 8:09 AM Result Value Ref Range Bedside glucose 153 (H) 65 - 99 mg/dL Troponin I, High Sensitivity Collection Time: 06/13/24 10:56 AM Result Value Ref Range Troponin I, High Sensitivity 116 (H) <16 ng/L Troponin I, High Sensitivity 1 Hour Collection Time: 06/13/24 12:02 PM Result Value Ref Range 1 Hour Trop I, High Sensitivity 116 (H) <16 ng/L Troponin I, High Sensitivity 3 Hour Collection Time: 06/13/24 2:37 PM Result Value Ref Range 3 Hour Trop I, High Sensitivity 100 (H) <16 ng/L Bedside Glucose *Place/Obtain serum glucose if >500(>600 MRH) per glucometer. Collection Time: 06/13/24 4:44 PM Result Value Ref Range Bedside glucose 233 (H) 65 - 99 mg/dL Radiology X-ray chest 2 views Result Date: 06/12/2024 Narrative: Procedure: Chest x-ray performed Number of views:2 History:Chest pain Covid positive Comparison:01/20/2020 Findings: The heart and lungs show no acute findings, and the mediastinum and hilaare grossly negative . Impression: 1. No acute change. Finalized by Marvin Ackerman MD on 06/12/2024 9:29 PM HOSPITAL PROBLEM LIST Active Problems: COVID-19 virus infection Chronic obstructive pulmonary disease with acute lower respiratory infection (CMS-HCC) History of coronary artery bypass graft Type 2 diabetes mellitus without complication, without long-term current use of insulin (CMS-HCC) ASSESSMENT & PLAN COVID-19 virus infection/COPD Prednisone Airborne isolation Oxygen as needed On paxlovid that was started by Urgent care in [facility] type 2 FSBS with sliding scale coverage Monitor labs H/o CABG/ chest pain with elevated troponins Continue home aspirin, statin EKG done Cardiology consult Chart reviewed. Admission orders placed and home medications reconciled. DVT/VTE prophylaxis: SCD's and pharmacologic prophylaxis, heparin SQ. GI prophylaxis: add pantoprazole. PT/OT to evaluate and treat. na DC planning: Plan to discharge home on prednisone for 5 days and paxlovid once okay with cardiology. Joyce Krishna APRN-ALICJA 06/13/2024 5:50 PM [facility] Internal Medicine 7AM-7PM (all facilities): EpicChat or page through [employer]. 7PM-7AM ([facility], [facility] Psychiatry and Inpatient Rehab): EpicChat or page, [phone]. 7PM-7AM ([facility] and [facility] Rehab): EpicChat or page through [employer]. Joyce Krishna APRN-ALICJA 06/13/24 [id number] I have seen and evaluated the patient, and have reviewed the history above and agree. I have repeated the vargas portions of the physical exam and concur with the TED findings. I have reviewed all laboratory findings and imaging reports/films. I agree with the plan as noted above Dr Angelica Sotelo MD, [facility] 06/13/2024 8:28 PM [facility]07-[facility] History and physical note* Angelica Sotelo MD - 06/13/2024 5:41 PM EDT Images from the original note were not included. [facility] [address] [facility] [id number] Hospital Medicine History & Physical Patient: Marah Silva Date of : 1950 Room: [facility]/01 PCP: Smith Sheikh MD Admission date: 06/12/2024 7:06 PM Encounter date: 06/13/24 Hospital Day: 2 SUBJECTIVE Marah Silva is a 74 y.o. female who presents with chest pain and SOB. She states that Wednesday she was seen at the urgent care in [place] due to had congestion, body aches and a sinus infection. She had a COVID test that was positive and she was given Paxlovid to take at home. She has a past medical history hypertension, diabetes mellitus, COPD, CABG. She is also a smoker. EKG showed sinus tach. However her troponins peaked at 1:16 a.m.. Cardiology was consulted and felt that she would need astress test in the future but nothing acutely needing to be done intervention hidalgo. On examination patient is feeling fatigued. Allergies: Bactrim [sulfamethoxazole-trimethoprim], Ciprofloxacin, Morphine, Motrin [ibuprofen], Penicillins, and Zyrtec [cetirizine] Prior to Admission medications Medication Sig Start Date End Date Taking? Authorizing Provider amLODIPine (NORVASC) 2.5 mg tablet Take 1 tablet (2.5 mg total) by mouth in the morning. Yes Not InSystem Ref Prov aspirin 81 mg Take 1 tablet (81 mg total) by mouth in the morning. Yes Not In System Ref Prov atorvastatin (LIPITOR) 10 mg tablet Take 1 tablet (10 mg total) by mouth in the morning. Yes Not InSystem Ref Prov biotin 1 mg capsule Take by mouth. Yes Not In System Ref Prov cyanocobalamin (vitamin B-12) 100 MCG tablet Take 1 tablet (100 mcg total) by mouth in the morning.Yes Not In System Ref Prov ferrous sulfate 325 (65 FE) mg tablet Take 1 tablet (325 mg total) by mouth daily with breakfast. Wednesday, Wednesday, WEDNESDAY Yes Not In System Ref Prov fluticasone propion-salmeteroL (ADVAIR) 250-50 mcg/dose DISKUS Inhale 1 puff in the morning and 1 puff before bedtime. Yes Not In System Ref Prov fluticasone propionate (FLONASE) 50 mcg/actuation nasal spray Administer 1 spray into each nostril in the morning. Yes Not In System Ref Prov levothyroxine (SYNTHROID, LEVOTHROID) 100 MCG tablet Take 1 tablet (100 mcg total) by mouth in the morning. 05/29/22 Yes Not In System Ref Prov meloxicam (MOBIC) 7.5 mg tablet Take 1 tablet (7.5 mg total) by mouth in the morning. Yes Not In System Ref Prov metFORMIN (GLUCOPHAGE) 1000 mg tablet Take 0.5 tablets (500 mg total) by mouth daily with breakfast. Yes Not In System Ref Prov metFORMIN (GLUCOPHAGE) 500 mg tablet Take 1 tablet (500 mg total) by mouth nightly. Yes Not In System Ref Prov eosyiyzf-upu-AI-lycopen-lutein (CENTRUM SILVER) 0.4 mg-300 mcg- 250 mcg tablet Take by mouth. Yes Not In System Ref Prov pantoprazole (PROTONIX) 20 mg EC tablet Take 1 tablet (20 mg total) by mouth in the morning. Yes Not In System Ref Prov ramipriL (ALTACE) 10 mg capsule Take 1 capsule (10 mg total) by mouth in the morning. Yes Not In System Ref Prov sucralfate (CARAFATE) 1 gram tablet Take 1 tablet (1 g total) by mouth in the morning and 1 tablet (1 g total) at noon and 1 tablet (1 g total) in the evening and 1 tablet (1 g total) before bedtime.Yes Not In System Ref Prov tiZANidine (ZANAFLEX) 2 mg tablet Take 1 tablet (2 mg total) by mouth in the morning and at bedtime. Yes Not In System Ref Prov traMADol (ULTRAM) 50 mg tablet Take 1 tablet (50 mg total) by mouth 2 (two) times a day as needed for pain. Yes Not In System Ref Prov celecoxib (CeleBREX) 200 mg capsule Take 1 capsule by mouth in the morning. Patient not taking: Reported on 06/13/2024 07/06/22 Not In System Ref Prov CEPHalexin (KEFLEX) 500 mg capsule Take 500 mg by mouth in the morning and 500 mg at noon and 500 mg in the evening and 500 mg before bedtime. Patient not taking: Reported on 06/13/2024 Not In System Ref Prov meclizine (ANTIVERT) 25 mg tablet Take 1 tablet (25 mg total) by mouth 3 (three) times a day as needed for dizziness. Patient not taking: Reported on 08/14/2022 02/14/21 Alan Harris DO meclizine (ANTIVERT) 25 mg tablet Take 1 tablet (25 mg total) by mouth 3 (three) times a day as needed for dizziness. Patient not taking: Reported on 06/13/2024 08/14/22 Bobby Ortzi MD ondansetron ODT (ZOFRAN ODT) 4 mg disintegrating tablet Dissolve 1 tablet (4 mg total) on tongue every 8 (eight) hours as needed for nausea for up to 10 doses. Patient not taking: Reported on 06/13/2024 08/14/22 Bobby Ortiz MD ondansetron ODT (ZOFRAN-ODT) 4 mg disintegrating tablet Dissolve 1 tablet (4 mg total) on tongue every 8 (eight) hours as needed for nausea for up to 10 doses. Patient not taking: Reported on 08/14/2022 02/14/21 Alan Harris DO predniSONE (DELTASONE) 20 mg tablet Take 2 tablets (40 mg total) by mouth daily with breakfast for 5 days. 06/14/24 06/19/24 Joyce Krishna APRN-PRODUCTION LINE TECHNICIAN Code Status: Full Code Past Medical History: Patient has a past medical history of Allergic, COPD (chronic obstructive pulmonary disease) ([facility] COVID-19 (06/12/2024), Diabetes ([facility]), Hyperlipidemia, Hypertension, and Hypothyroid. Past Surgical History: Patient has a past surgical history that includes Cholecystectomy; Partial hysterectomy; and Tonsillectomy. Family History: Patient's family history is not on file. Social History: Patient reports that she has never smoked. She has never used smokeless tobacco. She reports that she does not drink alcohol and does not use drugs. Review of Systems Constitutional: Positive for fatigue and fever. HENT: Negative. Eyes: Negative. Respiratory: Positive for shortness of breath. Cardiovascular: Positive for chest pain. Gastrointestinal: Negative. Endocrine: Negative. Genitourinary: Negative. Musculoskeletal: Negative. Skin: Negative. Allergic/Immunologic: Negative. Neurological: Negative. Hematological: Negative. Psychiatric/Behavioral: Negative. OBJECTIVE BP 138/61 Pulse 71 Temp 36.7 C (98 F) (Oral) Resp 16 Ht 152.4 cm (5') Wt 77.1 kg (170 lb) SpO2 96% BMI 33.20 kg/m Temp: [36.5 C (97.7 F)-36.9 C (98.4 F)] 36.7 C (98 F) Pulse: [71-116] 71 Resp: [15-22] 16 BP: (117-180)/(58-83) 138/61 SpO2: [95 %-100 %] 96 % O2 Device: None (Room air) Intake/Output Summary (Last 24 hours) at 06/13/2024 1750 Last data filed at 06/12/2024 2334 Gross per 24 hour Intake 1000.14 ml Output -- Net 1000.14 ml Physical Exam Vitals and nursing note reviewed. Constitutional: Appearance: She is ill-appearing. HENT: Head: Normocephalic and atraumatic. Eyes: Pupils: Pupils are equal, round, and reactive to light. Neck: Vascular: No carotid bruit. Cardiovascular: Rate and Rhythm: Regular rhythm. Tachycardia present. Pulses: Normal pulses. Heart sounds: Normal heart sounds. Pulmonary: Effort: Pulmonary effort is normal. Breath sounds: Rhonchi present. Abdominal: General: Bowel sounds are normal. Palpations: Abdomen is soft. Musculoskeletal: Cervical back: Normal range of motion and neck supple. No rigidity or tenderness. Right lower leg: No edema. Left lower leg: No edema. Lymphadenopathy: Cervical: No cervical adenopathy. Skin: General: Skin is warm and dry. Capillary Refill: Capillary refill takes less than 2 seconds. Neurological: General: No focal deficit present. Mental Status: She is alert and oriented to person, place, and time. Psychiatric: Mood and Affect: Mood normal. Behavior: Behavior normal. Thought Content: Thought content normal. Judgment: Judgment normal. Medications Scheduled: aspirin, 81 mg, oral, Daily atorvastatin, 10 mg, oral, Nightly heparin (porcine), 5,000 Units, subcutaneous, Q8H TAHIRA insulin lispro, 2-10 Units, subcutaneous, TID with meals insulin lispro, 2-8 Units, subcutaneous, Nightly pantoprazole, 40 mg, oral, QAM AC predniSONE, 40 mg, oral, Daily with breakfast tiZANidine, 4 mg, oral, Once Infusions: dextrose 5 % in water, 100 mL/hr dextrose 5 % in water, 100 mL/hr sodium chloride 0.9 %, 20 mL/hr As Needed: acetaminophen calcium gluconate calcium gluconate calcium gluconate dextrose dextrose dextrose 5 % in water dextrose 5 % in water dextrose 50 % in water (D50W) dextrose 50 % in water (D50W) glucagon (human recombinant) glucagon (human recombinant) hydrALAZINE HYDROcodone-acetaminophen magnesium sulfate magnesium sulfate ondansetron potassium chloride OR potassium chloride sennosides-docusate sodium sodium phosphate IV OR sodium phosphate IV - central line OR sod phos di, mono-K phos mono sodium chloride sodium chloride sodium chloride 0.9 % Allergies: Bactrim [sulfamethoxazole-trimethoprim], Ciprofloxacin, Morphine, Motrin [ibuprofen], Penicillins, and Zyrtec [cetirizine] Labs Recent Results (from the past 24 hour(s)) CBC auto differential Collection Time: 06/12/24 7:41 PM Result Value Ref Range White Blood Cells 6.4 4.0 - 11.0 X10E9/L RBC count 3.62 (L) 3.80 - 5.20 X10E12/L Hemoglobin 10.7 (L) 11.7 - 15.5 g/dL Hematocrit 32.5 (L) 35 - 47 % MCV 90 80 - 100 fL MCH 29.6 27 - 34 pg MCHC 32.9 32 - 36 g/dL RDW 16.2 (H) 11.5 - 15.0 % Platelets 212 150 - 450 X10E9/L MPV 7.7 7 - 12 fL % neutrophils 87.9 % % lymphocytes 8.7 % % monocytes 3.3 % % eosinophils 0.0 % % Basophils 0.1 % Neutrophils Absolute (A) 5.7 1.5 - 6.6 X10E9/L Lymphocytes Absolute 0.6 (L) 1.0 - 3.5 X10E9/L Monocytes Absolute 0.2 0 - 0.9 X10E9/L Eosinophils Absolute 0.0 0.0 - 0.4 X10E9/L Basophils Absolute 0.0 0.0 - 0.2 X10E9/L Comprehensive metabolic panel Collection Time: 06/12/24 7:41 PM Result Value Ref Range Sodium 134 134 - 146 mmol/L Potassium, Bld 3.7 3.5 - 5.0 mmol/L Chloride 103 98 - 109 mmol/L CO2 15 (L) 22 - 32 mmol/L Anion gap 16 (H) 5 - 15 mmol/L BUN 22 5 - 27 mg/dL Creatinine 0.92 0.40 - 1.00 mg/dL Glucose 362 (H) 65 - 99 mg/dL Calcium 9.0 8.5 - 10.5 mg/dL Total Protein 6.9 6.0 - 8.0 g/dL Albumin 3.8 3.2 - 5.3 g/dL Alkaline Phosphatase 78 39 - 130 U/L AST 31 0 - 41 U/L ALT 30 0 - 31 U/L Total bilirubin 0.2 (L) 0.3 - 1.2 mg/dL eGFR (CKD-EPI)non-race dependent 65 >59 ml/min/1.73sq.m D-Dimer Collection Time: 06/12/24 7:41 PM Result Value Ref Range D-dimer <150 <255 ng/mL DDU B-type natriuretic peptide Collection Time: 06/12/24 7:41 PM Result Value Ref Range BNP 71 <100.0 pg/mL Troponin I, High Sensitivity Collection Time: 06/12/24 7:41 PM Result Value Ref Range Troponin I, High Sensitivity 7 <16 ng/L Troponin I, High Sensitivity 1 Hour Collection Time: 06/12/24 8:45 PM Result Value Ref Range 1 Hour Trop I, High Sensitivity 10 <16 ng/L Acetone, (BetaHydroxybutyrate, Ketone) quantitative, serum Collection Time: 06/12/24 8:45 PM Result Value Ref Range Beta hydroxy buterate 0.20 0.02 - 0.27 mmol/L Procalcitonin Collection Time: 06/12/24 8:45 PM Result Value Ref Range Procalcitonin 0.05 (H) <0.05 ng/mL Blood gas, venous Collection Time: 06/12/24 8:51 PM Result Value Ref Range Sample Type VENOUS Body Temp 37.0 37.0 C pH, Venous 7.334 7.320 - 7.420 PCO2, Venous 30.0 (L) 35 - 50 MMHG PO2, Venous 33 30 - 50 MMHG Base,Deficit 9.0 (H) 0.0 - 2.0 MMOL/L Portable HCO3 16.0 (L) 20.0 - 24.0 MMOL/L % O2 Sat 60.0 (L) >80.0 % Gali's Test NA Sample Site N/A Oxygen Source RoomAir Bedside Glucose *Place/Obtain serum glucose if >500(>600 MRH) per glucometer. Collection Time: 06/12/24 11:31 PM Result Value Ref Range Bedside glucose 327 (H) 65 - 99 mg/dL Bedside Glucose *Place/Obtain serum glucose if >500(>600 MRH) per glucometer. Collection Time: 06/13/24 12:54 AM Result Value Ref Range Bedside glucose 276 (H) 65 - 99 mg/dL Comprehensive metabolic panel Collection Time: 06/13/24 5:21 AM Result Value Ref Range Sodium 136 134 - 146 mmol/L Potassium, Bld 3.8 3.5 - 5.0 mmol/L Chloride 107 98 - 109 mmol/L CO2 21 (L) 22 - 32 mmol/L Anion gap 8 5 - 15 mmol/L BUN 17 5 - 27 mg/dL Creatinine 0.62 0.40 - 1.00 mg/dL Glucose 159 (H) 65 - 99 mg/dL Calcium 8.5 8.5 - 10.5 mg/dL Total Protein 6.3 6.0 - 8.0 g/dL Albumin 3.4 3.2 - 5.3 g/dL Alkaline Phosphatase 69 39 - 130 U/L AST 31 0 - 41 U/L ALT 34 (H) 0 - 31 U/L Total bilirubin 0.3 0.3 - 1.2 mg/dL eGFR (CKD-EPI)non-race dependent >90 >59 ml/min/1.73sq.m Magnesium Collection Time: 06/13/24 5:21 AM Result Value Ref Range Magnesium 1.5 (L) 1.8 - 2.6 mg/dL CBC auto differential Collection Time: 06/13/24 5:21 AM Result Value Ref Range White Blood Cells 8.5 4.0 - 11.0 X10E9/L RBC count 3.43 (L) 3.80 - 5.20 X10E12/L Hemoglobin 10.3 (L) 11.7 - 15.5 g/dL Hematocrit 30.8 (L) 35 - 47 % MCV 90 80 - 100 fL MCH 29.9 27 - 34 pg MCHC 33.4 32 - 36 g/dL RDW 16.0 (H) 11.5 - 15.0 % Platelets 200 150 - 450 X10E9/L MPV 8.0 7 - 12 fL % neutrophils 82.9 % % lymphocytes 12.1 % % monocytes 4.8 % % eosinophils 0.0 % % Basophils 0.2 % Neutrophils Absolute (A) 7.1 (H) 1.5 - 6.6 X10E9/L Lymphocytes Absolute 1.0 1.0 - 3.5 X10E9/L Monocytes Absolute 0.4 0 - 0.9 X10E9/L Eosinophils Absolute 0.0 0.0 - 0.4 X10E9/L Basophils Absolute 0.0 0.0 - 0.2 X10E9/L Bedside Glucose *Place/Obtain serum glucose if >500(>600 MRH) per glucometer. Collection Time: 06/13/24 8:09 AM Result Value Ref Range Bedside glucose 153 (H) 65 - 99 mg/dL Troponin I, High Sensitivity Collection Time: 06/13/24 10:56 AM Result Value Ref Range Troponin I, High Sensitivity 116 (H) <16 ng/L Troponin I, High Sensitivity 1 Hour Collection Time: 06/13/24 12:02 PM Result Value Ref Range 1 Hour Trop I, High Sensitivity 116 (H) <16 ng/L Troponin I, High Sensitivity 3 Hour Collection Time: 06/13/24 2:37 PM Result Value Ref Range 3 Hour Trop I, High Sensitivity 100 (H) <16 ng/L Bedside Glucose *Place/Obtain serum glucose if >500(>600 MRH) per glucometer. Collection Time: 06/13/24 4:44 PM Result Value Ref Range Bedside glucose 233 (H) 65 - 99 mg/dL Radiology X-ray chest 2 views Result Date: 06/12/2024 Narrative: Procedure: Chest x-ray performed Number of views:2 History:Chest pain Covid positive Comparison:01/20/2020 Findings: The heart and lungs show no acute findings, and the mediastinum and hilaare grossly negative . Impression: 1. No acute change. Finalized by Marvin Ackerman MD on 06/12/2024 9:29 PM HOSPITAL PROBLEM LIST Active Problems: COVID-19 virus infection Chronic obstructive pulmonary disease with acute lower respiratory infection (CMS-HCC) History of coronary artery bypass graft Type 2 diabetes mellitus without complication, without long-term current use of insulin (CMS-HCC) ASSESSMENT & PLAN COVID-19 virus infection/COPD Prednisone Airborne isolation Oxygen as needed On paxlovid that was started by Urgent care in [place] DM type 2 FSBS with sliding scale coverage Monitor labs H/o CABG/ chest pain with elevated troponins Continue home aspirin, statin EKG done Cardiology consult Chart reviewed. Admission orders placed and home medications reconciled. DVT/VTE prophylaxis: SCD's and pharmacologic prophylaxis, heparin SQ. GI prophylaxis: add pantoprazole. PT/OT to evaluate and treat. na DC planning: Plan to discharge home on prednisone for 5 days and paxlovid once okay with cardiology. Joyce Krishna APRN-ALICJA 06/13/2024 5:50 PM [facility] Internal Medicine 7AM-7PM (all facilities): EpicChat or page through [employer]. 7PM-7AM ([facility], [facility]iat[facility] and [facility]patient Rehab): EpicChat or page, [phone]. 7PM-7AM ([place], [place], [place], [place] and [facility] Rehab): EpicChat or page through [employer]. PRATEEK Medina 06/13/24 8995 I have seen and evaluated the patient, and have reviewed the history above and agree. I have repeated the vargas portions of the physical exam and concur with the TED findings. I have reviewed all laboratory findings and imaging reports/films. I agree with the plan as noted above Dr Angelica Sotelo MD, [facility] 06/13/2024 8:28 PM documented in this encounterOhio [facility] Plan of care note * Plan of Care - Myrna Meng RN - 06/13/2024 4:16 PM EDT Problem: Safety Goal: Patient will be injury free during hospitalization Description: INTERVENTIONS: 1. Assess patient's risk for falls and implement fall prevention plan of care per policy 2. Provide and maintain a safe environment 3. Proper use of double Identifiers 4. Medication administration using the 5 rights 5. Hand hygiene 6. Specimens are labeled at the bedside 7. Instruct patient/ patient high school admissions representative about use of safety devices 8. Include patient/ patient high school admissions representative in decisions related to safety Outcome: Progressing Note: Evaluation of progress towards goal: Patient remains safe and free of falls and injury since start of shift. Hourly rounding continued and call light within reach. Bed rails up x3 and orientation reviewed. Will continue to maintain safety during duration of stay.. Problem: Knowledge Deficit Goal: Patient/patient high school admissions representative demonstrates understanding of disease process, treatment plan,medications, and discharge instructions Description: INTERVENTIONS 1. Complete learning assessment and assess knowledge base 2. Provide teaching at level of understanding 3. Provide teaching via preferred learning method(s) Outcome: Progressing Note: Evaluation of progress towards goal: Patient educated on daily Plan of Care. Will continue toreinforce as appropriate. [facility] [employer] [id number] Miscellaneous Notes* Plan of Care - Myrna Meng RN - 06/13/2024 4:16 PM EDT Problem: Safety Goal: Patient will be injury free during hospitalization Description: INTERVENTIONS: 1. Assess patient's risk for falls and implement fall prevention plan of care per policy 2. Provide and maintain a safe environment 3. Proper use of double Identifiers 4. Medication administration using the 5 rights 5. Hand hygiene 6. Specimens are labeled at the bedside 7. Instruct patient/ patient high school admissions representative about use of safety devices 8. Include patient/ patient high school admissions representative in decisions related to safety Outcome: Progressing Note: Evaluation of progress towards goal: Patient remains safe and free of falls and injury since start of shift. Hourly rounding continued and call light within reach. Bed rails up x3 and orientation reviewed. Will continue to maintain safety during duration of stay.. Problem: Knowledge Deficit Goal: Patient/patient high school admissions representative demonstrates understanding of disease process, treatment plan,medications, and discharge instructions Description: INTERVENTIONS 1. Complete learning assessment and assess knowledge base 2. Provide teaching at level of understanding 3. Provide teaching via preferred learning method(s) Outcome: Progressing Note: Evaluation of progress towards goal: Patient educated on daily Plan of Care. Will continue toreinforce as appropriate. * Discharge Planning Note - JORGE L Bull - 06/13/2024 3:47 PM EDT Images from the original note were not included. DISCHARGE PLANNING NOTE Discharge Planning Assessment completed at bedside. Basket Hand Braider identified self and role to the patient.Patient is agreeable to the assessment and discussion of a safe discharge plan. Goals as below Pt reports to being independent prior to admit. No new DME needs: Pt confirms PCP & Preferred pharmacy: Pt reports ability to afford medications, denies food/utility/transportation needs. Pt denies alcohol/drug/tobacco use. No depression/anxiety, Negative [place] Screen. Basket Hand Braider discussed post acute care needs. Pt denies any needs at discharge and confirms will have a ride home. Prefers to set up own f/u appts. No other questions or concerns at this time 06/13/24 1544 Discharge Disposition Discharge Disposition Home with Self Care County Information County of [facility] [place] Patient Information Primary Caregiver Self Support System Immediate family Stressors Type of stressor (Denies) Income Information Income Information Retired/Pension/Social Security Referral To Community Resources Denies needs Discharge Planning Living Arrangements Spouse/significant other Support Systems Spouse/significant other;Children;Family members Assistance Needed Pt denies any DC needs, questions or concerns. DC today. Type of Residence Private residence Home Care Services No Community Agencies Currently Utilized None Established DME Comments Cane Patient expects to be discharged to: DC to home today. Does the patient need discharge transport arranged? No Services Requested: Services Requested Discharge Disposition: Home with self care Does the patient need discharge transportation arranged?: No Initial DC Assessment Completed: Yes DC Planning Complete Discharge Milestones: Yes Patient Goals: Patient/Caregiver Goals Patient/Caregiver Goals: Home No Needs, Home with Outpatient Service Provider Home No Needs: Caregiver/Family Goals: Goals Home (pt-stated) Evaluation of progress towards goal: In progress: DC to home today. * Plan of Care - Mohini Barrios RN - 06/13/2024 3:01 AM EDT Problem: Pain Goal: Patient goal is pain score less than 4, able to rest, and participant in treatment plan as appropriate Description: INTERVENTIONS: 1. Encourage patient or legal high school admissions representative to report early pain and ask for pain medicine when needed 2. Assess pain using appropriate pain scale and include the scale used when documenting 3. Administer analgesics based on type and severity of pain and evaluate response within appropriate time frame 4. Implement non-pharmacological measures as appropriate and evaluate response 5. Consider cultural and social influences on pain and pain management 6. Notify LIP if interventions ineffective or patient reports new pain 7. Monitor vital signs including pulse ox, end-tidal CO2 based on pain intervention 8. Reassess pain per policy 9. Teach patient or legal high school admissions representative interventions for comforting Outcome: Progressing Note: Evaluation of progress towards goal: ongoing Problem: Safety Goal: Patient will be injury free during hospitalization Description: INTERVENTIONS: 1. Assess patient's risk for falls and implement fall prevention plan of care per policy 2. Provide and maintain a safe environment 3. Proper use of double Identifiers 4. Medication administration using the 5 rights 5. Hand hygiene 6. Specimens are labeled at the bedside 7. Instruct patient/ patient high school admissions representative about use of safety devices 8. Include patient/ patient high school admissions representative in decisions related to safety Outcome: Progressing Note: Evaluation of progress towards goal: ongoing Problem: Glucose Imbalance Goal: Clinical indication of glucose balance is achieved Description: Patient's goal is: INTERVENTIONS 1. Monitor blood glucose levels as ordered 2. Administer medications as ordered 3. Notify physician of ineffective treatment plan Outcome: Progressing Note: Evaluation of progress towards goal: ongoing documented in this encounterChillicothe HospitalYuuConnect [facility] [id number] Progress note* Discharge Planning Note - JORGE L Bull - 06/13/2024 3:47 PM EDT Images from the original note were not included. DISCHARGE PLANNING NOTE Discharge Planning Assessment completed at bedside. Basket Hand Braider identified self and role to the patient.Patient is agreeable to the assessment and discussion of a safe discharge plan. Goals as below Pt reports to being independent prior to admit. No new DME needs: Pt confirms PCP & Preferred pharmacy: Pt reports ability to afford medications, denies food/utility/transportation needs. Pt denies alcohol/drug/tobacco use. No depression/anxiety, Negative [place] Screen. Basket Hand Braider discussed post acute care needs. Pt denies any needs at discharge and confirms will have a ride home. Prefers to set up own f/u appts. No other questions or concerns at this time 06/13/24 4938 Discharge Disposition Discharge Disposition Home with Self Care County Information [facility] Patient Information Primary Caregiver Self Support System Immediate family Stressors Type of stressor (Denies) Income Information Income Information Retired/Pension/Social Security Referral To Community Resources Denies needs Discharge Planning Living Arrangements Spouse/significant other Support Systems Spouse/significant other;Children;Family members Assistance Needed Pt denies any DC needs, questions or concerns. DC today. Type of Residence Private residence Home Care Services No Community Agencies Currently Utilized None Established DME Comments Cane Patient expects to be discharged to: DC to home today. Does the patient need discharge transport arranged? No Services Requested: Services Requested Discharge Disposition: Home with self care Does the patient need discharge transportation arranged?: No Initial DC Assessment Completed: Yes DC Planning Complete Discharge Milestones: Yes Patient Goals: Patient/Caregiver Goals Patient/Caregiver Goals: Home No Needs, Home with Outpatient Service Provider Home No Needs: Caregiver/Family Goals: Goals Home (pt-stated) Evaluation of progress towards goal: In progress: DC to home today. [facility]07-23-[facility] Consult note* Teresa Odom MD - 06/13/2024 2:00 PM EDT Images from the original note were not included. [facility] [address] [place] [address] HISTORY & PHYSICAL / CONSULT NOTE Marah Puente Ricardo PCP: Smith Sheikh MD Date of Admission: 06/12/2024 Date of Consultation: 06/13/2024 2:00 PM Consult for COVID/chest discomfort/positive troponin SUBJECTIVE History of Present Illness: Marah Silva is a 74 y.o. female with intense chest discomfort starting from 17:30 yesterday lasting after 11:00 o'clock at night patient said she had a left anterior chest discomfort sharp dull that kept persisting. She thought it might be from the COVID but when it continued to persist she came to the emergency room after already being seen at the urgent care for COVID. Presently she is pain free. She is a nonsmoker nondiabetic. ECG shows right bundle-branch block. Troponin was 116 high sensitivity Previous Medical History: Past Medical History: Diagnosis Date Allergic COPD (chronic obstructive pulmonary disease) [facility] Diabetes ([facility]) Hyperlipidemia Hypertension Hypothyroid Previous Surgical History: Past Surgical History: Procedure Laterality Date CHOLECYSTECTOMY PARTIAL HYSTERECTOMY TONSILLECTOMY Allergies: Allergies Allergen Reactions Bactrim [Sulfamethoxazole-Trimethoprim] Ciprofloxacin Morphine Motrin [Ibuprofen] Penicillins Zyrtec [Cetirizine] Hospital Meds: Current Facility-Administered Medications Medication Dose Route Frequency Provider Last Rate Last Admin acetaminophen (TYLENOL) tablet 650 mg 650 mg oral Q4H PRN Ijeoma L Guinta, WE[employer]ONS ELECT[employer]ICAL ENGINEERING OFFICER- PRODUCTION LINE TECHNICIAN 650 mg at 06/13/24 0323 calcium gluconate 3,000 mg in sodium chloride 0.9 % 100 mL IVPB 3,000 mg intravenous PRN Ijeoma L Guinta, [employer] 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 calcium gluconate 4,000 mg in sodium chloride 0.9 % 250 mL IVPB 4,000 mg intravenous PRN Ijeoma L Guinta, [employer] 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 calcium gluconate IVPB 2000 mg/100 mL (20 mg/mL premix) 2,000 mg intravenous PRN Ijeoma L Guinta, [employer] 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 dextrose (GLUTOSE) 40 % gel 15 g 15 g oral PRN Ijeoma L Guinta, [employer] 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 dextrose (GLUTOSE) 40 % gel 15 g 15 g oral PRN Ijeoma L Guinta, WE[employer] 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 dextrose 5 % (D5W) infusion 100 mL/hr intravenous Continuous PRN Ijeoma L Guinta, [employer] 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 dextrose 5 % (D5W) infusion 100 mL/hr intravenous Continuous PRN Ijeoma L Guinta, [employer] 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 dextrose 50 % in water (D50W) 50% solution 25 mL 25 mL intravenous PRN Ijeoma L Guinta, [employer] 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 dextrose 50 % in water (D50W) 50% solution 25 mL 25 mL intravenous PRN Ijeoma L Guinta, WE[employer] 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 glucagon HCL injection 1 mg 1 mg intramuscular PRN Ijeoma L Guinta, WEAPONS 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 glucagon HCL injection 1 mg 1 mg intramuscular PRN Ijeoma L Guinta, 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 heparin (porcine) injection 5,000 Units 5,000 Units subcutaneous Q8H TAHIRA Ijeoma L Guinta, 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 5,000 Units at 06/13/24 0643 hydrALAZINE (APRESOLINE) injection 10 mg 10 mg intravenous Q4H PRN Ijeoma L Guinta, 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 HYDROcodone-acetaminophen (NORCO) 5-325 mg per tablet 1 tablet 1 tablet oral Q4H PRN Ijeoma Aguilar Jarodinta,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 1 tablet at 06/13/24 0643 insulin lispro (HumaLOG) injection 2-10 Units 2-10 Units subcutaneous TID with meals Ijeoma Aguilar Darrena,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 6 Units at 06/13/24 1313 insulin lispro (HumaLOG) injection 2-8 Units 2-8 Units subcutaneous Nightly Ijeoma Aguilar Kai, 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 magnesium sulfate IVPB 2000 mg/50 mL in iso-osmotic water (40 mg/mL premix) 2,000 mg intravenous PRN Ijeoma L Jarodinta, 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 magnesium sulfate IVPB 4000 mg/100 mL in iso-osmotic water (40 mg/mL premix) 4,000 mg intravenous PRN Ijeoma L Jarodinta, 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 25 mL/hr at 06/13/24 0856 4,000 mg at 06/13/24 0856 ondansetron (PF) (ZOFRAN) injection 4 mg 4 mg intravenous Q8H PRN Ijeoma L Guinta, 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 pantoprazole (PROTONIX) EC tablet 40 mg 40 mg oral QAM AC Ijeomacindi Oliverainta, [employer] ENG[employer]ERING OFFICER- PRODUCTION LINE TECHNICIAN 40 mg at 643 potassium chloride (KLOR-CON M 20) CR tablet 30-50 mEq 30-50 mEq oral PRN Ijeoma L Jarodinta, 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 30 mEq at 06/13/24 0949 Or potassium chloride (KAYCIEL) 20 mEq/15 mL solution 30-50 mEq 30-50 mEq oral PRN Ijeoma L Guinta, 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 sennosides-docusate sodium (SENOKOT-S) 8.6-50 mg 1 tablet 1 tablet oral Q12H PRN Ijeoma L Guinta, 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 sodium phosphate 20 mmol in sodium chloride 0.9 % 250 mL IVPB 20 mmol intravenous PRN Ijeoma L Guinta, 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 Or sodium phosphate 20 mmol in sodium chloride 0.9 % 100 mL IVPB 20 mmol intravenous PRN Ijeoma L Guinta, 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 Or sod phos di, mono-K phos mono (K-PHOS NEUTRAL) 250 mg tablet 2 tablet 2 tablet oral PRN Ijeoma Banksa, 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 sodium chloride 0.9 % flush 3 mL 3 mL intravenous PRN [facility], DO sodium chloride 0.9 % flush bag 25 mL intravenous PRN Ijeoma Oliverainta, 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 sodium chloride 0.9 % infusion 20 mL/hr intravenous Continuous PRN Ijeoma Maria Ines Oliverainta, 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 tiZANidine (ZANAFLEX) tablet 4 mg 4 mg oral Once [facility], DO Home Meds: Prior to Admission medications Medication Sig Start Date End Date Taking? Authorizing Provider amLODIPine (NORVASC) 2.5 mg tablet Take 2.5 mg by mouth daily. Not In System Ref Prov aspirin 81 mg Take 81 mg by mouth daily. Not In System Ref Prov atorvastatin (LIPITOR) 10 mg tablet Take 10 mg by mouth daily. Not In System Ref Prov biotin 1 mg capsule Take by mouth. Not In System Ref Prov celecoxib (CeleBREX) 200 mg capsule Take 1 capsule by mouth in the morning. 07/06/22 Not In System Ref Prov CEPHalexin (KEFLEX) 500 mg capsule Take 500 mg by mouth in the morning and 500 mg at noon and 500 mg in the evening and 500 mg before bedtime. Not In System Ref Prov ferrous sulfate 325 (65 FE) mg tablet Take 325 mg by mouth daily with breakfast. Wednesday, Wednesday, WEDNESDAY Not In System Ref Prov levothyroxine (SYNTHROID, LEVOTHROID) 100 MCG tablet Take 1 tablet by mouth in the morning. 05/29/22 Not In System Ref Prov meclizine (ANTIVERT) 25 mg tablet Take 1 tablet (25 mg total) by mouth 3 (three) times a day as needed for dizziness. Patient not taking: Reported on 08/14/2022 02/14/21 Alan Harris, meclizine (ANTIVERT) 25 mg tablet Take 1 tablet (25 mg total) by mouth 3 (three) times a day as needed for dizziness. 08/14/22 Bobyb Ortiz MD metFORMIN (GLUCOPHAGE) 1000 mg tablet Take 1,000 mg by mouth daily with breakfast. Not In System Ref Prov metFORMIN (GLUCOPHAGE) 500 mg tablet Take 1 tablet by mouth nightly. Not In System Ref Prov usbjgics-sln-XY-lycopen-lutein (CENTRUM SILVER) 0.4 mg-300 mcg- 250 mcg tablet Take by mouth. Not In System Ref Prov ondansetron ODT (ZOFRAN ODT) 4 mg disintegrating tablet Dissolve 1 tablet (4 mg total) on tongue every 8 (eight) hours as needed for nausea for up to 10 doses. 08/14/22 Bobby Ortiz MD ondansetron ODT (ZOFRAN-ODT) 4 mg disintegrating tablet Dissolve 1 tablet (4 mg total) on tongue every 8 (eight) hours as needed for nausea for up to 10 doses. Patient not taking: Reported on 08/14/2022 02/14/21 Alan Harris, pantoprazole (PROTONIX) 20 mg EC tablet Take 20 mg by mouth in the morning. Not In System Ref Prov ramipriL (ALTACE) 10 mg capsule Take 10 mg by mouth daily. Not In System Ref Prov sucralfate (CARAFATE) 1 gram tablet Take 1 g by mouth in the morning and 1 g at noon and 1 g in theevening and 1 g before bedtime. Not In System Ref Prov traMADol (ULTRAM) 50 mg tablet Take 50 mg by mouth 2 (two) times a day as needed for pain. Not In System Ref Prov Social History: TOBACCO: reports that she has never smoked. She has never used smokeless tobacco. ETOH: reports no history of alcohol use. DRUGS: reports no history of drug use. OCCUPATION: Family History: History reviewed. No pertinent family history. Review of Systems: Constitutional: there has been no unanticipated weight loss, no change in energy level, sleep pattern, or activity level. Eyes: No visual changes or diplopia, no scleral icterus. ENT: No Headaches, hearing loss or vertigo, no mouth sores or sore throat. Cardiovascular: No chest pain, dyspnea on exertion, palpitations or loss of consciousness, no cough, hemoptysis, pleuritic pain, or phlebitis. Respiratory: No cough or wheezing, no sputum production, no hematemesis. Gastrointestinal: No abdominal pain, appetite loss, blood in stools, no change in bowel or bladder habits. Genitourinary: No dysuria, trouble voiding, or hematuria Musculoskeletal: No gait disturbance, weakness or joint complaints Integumentary: No rash or pruritis Neurological: No headache, diplopia, change in muscle strength, numbness or tingling, no change in gait, balance, coordination, mood, affect, memory, mentation, behavior Psychiatric: No anxiety, or depression Endocrine: No temperature intolerance, no excessive thirst, fluid intake, or urination, no tremor Hematologic/Lymphatic: No abnormal bruising or bleeding, blood clots or swollen lymph nodes Allergic/Immunologic: No nasal congestion or hives OBJECTIVE LAST LABS: CBC: Results from last 7 days Lab Units 06/13/24 0521 06/12/241940 WBC X10E9/L 8.5 6.4 HEMOGLOBIN g/dL 10.3* 10.7* HEMATOCRIT % 30.8* 32.5* MCV fL 90 90 PLATELETS X10E9/L 200 212 BMP: Results from last 7 days Lab Units 06/13/2421 06/12/241940 SODIUM mmol/L 136 134 POTASSIUM mmol/L 3.8 3.7 CHLORIDE mmol/L 107 103 CO2 mmol/L 21* 15* BUN mg/dL 17 22 CREATININE mg/dL 0.62 0.92 CALCIUM mg/dL 8.5 9.0 MAGNESIUM mg/dL 1.5* -- PT/INR: APTT: MAG: Results from last 7 days Lab Units 06/13/24520 MAGNESIUM mg/dL 1.5* D Dimer: Results from last 7 days Lab Units 06/12/241940 D DIMER ng/mL DDU <150 Troponin I ProBNP Results from last 7 days Lab Units 06/12/241940 BNP pg/mL 71 Lipid Panel: Lab Results Component Value Date CHOL 199 07/31/2016 TRIG 83 07/31/2016 HDL 76 07/31/2016 HDL 82 02/15/2016 CHOLHDLR 02/15/2016 RISK FEMALE RATIO MALE RATIO 1/2 AVERAGE 3.27 3.43 AVERAGE 4.44 4.97 2X 7.05 9.55 3X 11.04 23.39 Liver Panel: No results found for: ALB HgA1C: Lab Results Component Value Date HGBA1C 6.1 (H) 02/15/2016 ABG: CV HISTORY: ECHO: No results found. STRESS: No results found. HOLTER: No results found. CARDIAC CATH: No results found. CAROTID: No results found. CXR: X-ray chest 2 views Result Date: 06/12/2024 Procedure: Chest x-ray performed Number of views:2 History:Chest pain Covid positive Comparison:01/20/2020 Findings: The heart and lungs show no acute findings, and the mediastinum and brennen are grossly negative . Impression: 1. No acute change. Finalized by Marvin Ackerman MD on 06/12/2024 9:29 PM EKG: TELEMETRY: PHYSICAL EXAM Admission Weight: Weight: 85.7 kg (189 lb) I/O last 3 completed shifts: In: 1000.1 [IV Piggyback:1000.1] Out: - Weight change: Wt Readings from Last 3 Encounters: 06/13/24 77.1 kg (170 lb) 08/14/22 78.9 kg (174 lb) 02/14/21 82.1 kg (181 lb) Vitals: Vitals: 06/13/24 0030 06/13/24 0253 06/13/24 0747 06/13/24 1200 BP: 117/61 122/83 132/64 138/61 Pulse: 83 74 77 71 Resp: 15 16 16 16 Temp: 36.9 C (98.4 F) 36.5 C (97.7 F) 36.7 C (98 F) TempSrc: Oral Oral Oral SpO2: 95% 97% 99% 96% Weight: 77.1 kg (170 lb) Height: 152.4 cm (5') Admit Weight Weight: 85.7 kg (189 lb) Last 3 Weights Last 3 Weight Readings 06/12/24 1918 06/13/24 0253 Weight: 85.7 kg (189 lb) 77.1 kg (170 lb) Body mass index is 33.2 kg/m . INTAKE/OUTPUT I/O last 3 completed shifts: In: 1000.1 [IV Piggyback:1000.1] Out: - Intake/Output Summary (Last 24 hours) at 06/13/2024 1400 Last data filed at 06/12/2024 2334 Gross per 24 hour Intake 1000.14 ml Output -- Net 1000.14 ml General appearance: Alert oriented and cooperative, in no acute distress Skin: Warm and dry to touch Head: Normocephalic, without obvious abnormality, atraumatic Eyes: Conjunctivae unremarkable, EOMs intact, sclera non icteric Neck: No JVD, no carotid bruit, neck supple, trachea midline Lungs: Fairly clear Heart:: RRR with normal S1 and S2 , no murmurs and no gallops. Abdomen: Soft, non-tender, bowel sounds normal Extremities: No edema Neurologic: Oriented to time, person and place, affect appropriate, no focal/major motor or sensorydefects noted Psychiatric: Appropriate mood, memory and judgment ASSESSMENT 1. Intense discomfort lasting over 5 hours left-sided chest recent diagnosis of COVID. Mildly elevated cardiac enzymes. ECG right bundle-branch block PLAN It seems that she would have a higher peak of troponin given the intense discomfort and essentiallythis would be 0.1 from the prior troponin draw levels Would check another troponin to make sure it has not increasing significantly if it levels off and/or coming down then more than likely this is not cardiac chest discomfort. Probably either way a stress test at some point would be warranted to make sure were not missing anything Teresa Odom MD This note was completed using a voice vehicle and equipment cleaner system. Every effort was made to ensure accuracy. However, inadvertent computerized vehicle and equipment cleaner errors may be present. [employer] Work Phone: [phone] Consult note* Teresa Odom MD - 06/13/2024 2:00 PM EDT Images from the original note were not included. [facility] [address] [place] [address] HISTORY & PHYSICAL / CONSULT NOTE Marah Cindi Silva PCP: Smith Sheikh MD Date of Admission: 06/12/2024 Date of Consultation: 06/13/2024 2:00 PM Consult for COVID/chest discomfort/positive troponin SUBJECTIVE History of Present Illness: Marah Silva is a 74 y.o. female with intense chest discomfort starting from 17:30 yesterday lasting after 11:00 o'clock at night patient said she had a left anterior chest discomfort sharp dull that kept persisting. She thought it might be from the COVID but when it continued to persist she came to the emergency room after already being seen at the urgent care for COVID. Presently she is pain free. She is a nonsmoker nondiabetic. ECG shows right bundle-branch block. Troponin was 116 high sensitivity Previous Medical History: Past Medical History: Diagnosis Date Allergic COPD (chronic obstructive pulmonary disease) ([facility]) [place] Hyperlipidemia Hypertension Hypothyroid Previous Surgical History: Past Surgical History: Procedure Laterality Date CHOLECYSTECTOMY PARTIAL HYSTERECTOMY TONSILLECTOMY Allergies: Allergies Allergen Reactions Bactrim [Sulfamethoxazole-Trimethoprim] Ciprofloxacin Morphine Motrin [Ibuprofen] Penicillins Zyrtec [Cetirizine] Hospital Meds: Current Facility-Administered Medications Medication Dose Route Frequency Provider Last Rate Last Admin acetaminophen (TYLENOL) tablet 650 mg 650 mg oral Q4H PRN Ijeoma L Guinta, [employer] OFFICER- [employer]ODUCTION LINE TECHNICIAN 650 mg at 06/13/24 0323 calcium gluconate 3,000 mg in sodium chloride 0.9 % 100 mL IVPB 3,000 mg intravenous PRN Ijeoma L Guinta, 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 calcium gluconate 4,000 mg in sodium chloride 0.9 % 250 mL IVPB 4,000 mg intravenous PRN Ijeoma L Guinta, 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 calcium gluconate IVPB 2000 mg/100 mL (20 mg/mL premix) 2,000 mg intravenous PRN Ijeoma L Guinta, 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 dextrose (GLUTOSE) 40 % gel 15 g 15 g oral PRN Ijeoma L Guinta, 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 dextrose (GLUTOSE) 40 % gel 15 g 15 g oral PRN Ijeoma L Guinta, 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 dextrose 5 % (D5W) infusion 100 mL/hr intravenous Continuous PRN Ijeoma L Guinta, 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 dextrose 5 % (D5W) infusion 100 mL/hr intravenous Continuous PRN Ijeoma L Guinta, 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 dextrose 50 % in water (D50W) 50% solution 25 mL 25 mL intravenous PRN Ijeoma L Guinta, 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 dextrose 50 % in water (D50W) 50% solution 25 mL 25 mL intravenous PRN Ijeoma L Guinta, 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 glucagon HCL injection 1 mg 1 mg intramuscular PRN Ijeoma L Guinta, 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 glucagon HCL injection 1 mg 1 mg intramuscular PRN Ijeoma L Guinta, 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 heparin (porcine) injection 5,000 Units 5,000 Units subcutaneous Q8H TAHIRA Ijeoma L Guinta, 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 5,000 Units at 06/13/24 0643 hydrALAZINE (APRESOLINE) injection 10 mg 10 mg intravenous Q4H PRN Ijeoma Banksa, 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 HYDROcodone-acetaminophen (NORCO) 5-325 mg per tablet 1 tablet 1 tablet oral Q4H PRN Ijeoma Maria Ines Oliverainta,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 1 tablet at 06/13/24 0643 insulin lispro (HumaLOG) injection 2-10 Units 2-10 Units subcutaneous TID with meals Ijeoma Banksa,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 6 Units at 06/13/24 1313 insulin lispro (HumaLOG) injection 2-8 Units 2-8 Units subcutaneous Nightly Ijeoma Banksa, 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 magnesium sulfate IVPB 2000 mg/50 mL in iso-osmotic water (40 mg/mL premix) 2,000 mg intravenous PRN Ijeoma Oliverainta, 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 magnesium sulfate IVPB 4000 mg/100 mL in iso-osmotic water (40 mg/mL premix) 4,000 mg intravenous PRN Ijeoma Banksa, 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 25 mL/hr at 06/13/24 0856 4,000 mg at 06/13/24 0856 ondansetron (PF) (ZOFRAN) injection 4 mg 4 mg intravenous Q8H PRN Ijeoma Oliverainta, 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 pantoprazole (PROTONIX) EC tablet 40 mg 40 mg oral QAM AC Ijeoma Banksa, [employer] ENGINEERING OFFICER- PRODUCTION LINE TECHNICIAN 40 mg at 643 potassium chloride (KLOR-CON M 20) CR tablet 30-50 mEq 30-50 mEq oral PRN Ijeoma L Jarodinta, 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 30 mEq at 06/13/24 0949 Or potassium chloride (KAYCIEL) 20 mEq/15 mL solution 30-50 mEq 30-50 mEq oral PRN Ijeoma L Guinta, 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 sennosides-docusate sodium (SENOKOT-S) 8.6-50 mg 1 tablet 1 tablet oral Q12H PRN Ijeoma L Guinta, 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 sodium phosphate 20 mmol in sodium chloride 0.9 % 250 mL IVPB 20 mmol intravenous PRN Ijeoma L Jarodinta, 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 Or sodium phosphate 20 mmol in sodium chloride 0.9 % 100 mL IVPB 20 mmol intravenous PRN Ijeoma L Guinta, 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 Or sod phos di, mono-K phos mono (K-PHOS NEUTRAL) 250 mg tablet 2 tablet 2 tablet oral PRN Ijeoma L Guinta, 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 sodium chloride 0.9 % flush 3 mL 3 mL intravenous PRN [facility], DO sodium chloride 0.9 % flush bag 25 mL intravenous PRN Ijeoma L Guinta, 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 sodium chloride 0.9 % infusion 20 mL/hr intravenous Continuous PRN Ijeoma L Guinta, 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 tiZANidine (ZANAFLEX) tablet 4 mg 4 mg oral Once [facility], DO Home Meds: Prior to Admission medications Medication Sig Start Date End Date Taking? Authorizing Provider amLODIPine (NORVASC) 2.5 mg tablet Take 2.5 mg by mouth daily. Not In System Ref Prov aspirin 81 mg Take 81 mg by mouth daily. Not In System Ref Prov atorvastatin (LIPITOR) 10 mg tablet Take 10 mg by mouth daily. Not In System Ref Prov biotin 1 mg capsule Take by mouth. Not In System Ref Prov celecoxib (CeleBREX) 200 mg capsule Take 1 capsule by mouth in the morning. 07/06/22 Not In System Ref Prov CEPHalexin (KEFLEX) 500 mg capsule Take 500 mg by mouth in the morning and 500 mg at noon and 500 mg in the evening and 500 mg before bedtime. Not In System Ref Prov ferrous sulfate 325 (65 FE) mg tablet Take 325 mg by mouth daily with breakfast. Wednesday, Wednesday, WEDNESDAY Not In System Ref Prov levothyroxine (SYNTHROID, LEVOTHROID) 100 MCG tablet Take 1 tablet by mouth in the morning. 05/29/22 Not In System Ref Prov meclizine (ANTIVERT) 25 mg tablet Take 1 tablet (25 mg total) by mouth 3 (three) times a day as needed for dizziness. Patient not taking: Reported on 08/14/2022 02/14/21 Alan Harris DO meclizine (ANTIVERT) 25 mg tablet Take 1 tablet (25 mg total) by mouth 3 (three) times a day as needed for dizziness. 08/14/22 Bobby Ortiz MD metFORMIN (GLUCOPHAGE) 1000 mg tablet Take 1,000 mg by mouth daily with breakfast. Not In System Ref Prov metFORMIN (GLUCOPHAGE) 500 mg tablet Take 1 tablet by mouth nightly. Not In System Ref Prov shzrstlm-aeu-AX-lycopen-lutein (CENTRUM SILVER) 0.4 mg-300 mcg- 250 mcg tablet Take by mouth. Not In System Ref Prov ondansetron ODT (ZOFRAN ODT) 4 mg disintegrating tablet Dissolve 1 tablet (4 mg total) on tongue every 8 (eight) hours as needed for nausea for up to 10 doses. 08/14/22 Bobby Oritz MD ondansetron ODT (ZOFRAN-ODT) 4 mg disintegrating tablet Dissolve 1 tablet (4 mg total) on tongue every 8 (eight) hours as needed for nausea for up to 10 doses. Patient not taking: Reported on 08/14/2022 02/14/21 Alan Harris DO pantoprazole (PROTONIX) 20 mg EC tablet Take 20 mg by mouth in the morning. Not In System Ref Prov ramipriL (ALTACE) 10 mg capsule Take 10 mg by mouth daily. Not In System Ref Prov sucralfate (CARAFATE) 1 gram tablet Take 1 g by mouth in the morning and 1 g at noon and 1 g in theevening and 1 g before bedtime. Not In System Ref Prov traMADol (ULTRAM) 50 mg tablet Take 50 mg by mouth 2 (two) times a day as needed for pain. Not In System Ref Prov Social History: TOBACCO: reports that she has never smoked. She has never used smokeless tobacco. ETOH: reports no history of alcohol use. DRUGS: reports no history of drug use. OCCUPATION: Family History: History reviewed. No pertinent family history. Review of Systems: Constitutional: there has been no unanticipated weight loss, no change in energy level, sleep pattern, or activity level. Eyes: No visual changes or diplopia, no scleral icterus. ENT: No Headaches, hearing loss or vertigo, no mouth sores or sore throat. Cardiovascular: No chest pain, dyspnea on exertion, palpitations or loss of consciousness, no cough, hemoptysis, pleuritic pain, or phlebitis. Respiratory: No cough or wheezing, no sputum production, no hematemesis. Gastrointestinal: No abdominal pain, appetite loss, blood in stools, no change in bowel or bladder habits. Genitourinary: No dysuria, trouble voiding, or hematuria Musculoskeletal: No gait disturbance, weakness or joint complaints Integumentary: No rash or pruritis Neurological: No headache, diplopia, change in muscle strength, numbness or tingling, no change in gait, balance, coordination, mood, affect, memory, mentation, behavior Psychiatric: No anxiety, or depression Endocrine: No temperature intolerance, no excessive thirst, fluid intake, or urination, no tremor Hematologic/Lymphatic: No abnormal bruising or bleeding, blood clots or swollen lymph nodes Allergic/Immunologic: No nasal congestion or hives OBJECTIVE LAST LABS: CBC: Results from last 7 days Lab Units 06/13/24 0521 06/12/241940 WBC X10E9/L 8.5 6.4 HEMOGLOBIN g/dL 10.3* 10.7* HEMATOCRIT % 30.8* 32.5* MCV fL 90 90 PLATELETS X10E9/L 200 212 BMP: Results from last 7 days Lab Units 06/13/24 0521 06/12/241940 SODIUM mmol/L 136 134 POTASSIUM mmol/L 3.8 3.7 CHLORIDE mmol/L 107 103 CO2 mmol/L 21* 15* BUN mg/dL 17 22 CREATININE mg/dL 0.62 0.92 CALCIUM mg/dL 8.5 9.0 MAGNESIUM mg/dL 1.5* -- PT/INR: APTT: MAG: Results from last 7 days Lab Units 06/13/24520 MAGNESIUM mg/dL 1.5* D Dimer: Results from last 7 days Lab Units 06/12/241940 D DIMER ng/mL DDU <150 Troponin I ProBNP Results from last 7 days Lab Units 06/12/24 194 BNP pg/mL 71 Lipid Panel: Lab Results Component Value Date CHOL 199 07/31/2016 TRIG 83 07/31/2016 HDL 76 07/31/2016 HDL 82 02/15/2016 CHOLHDLR 02/15/2016 RISK FEMALE RATIO MALE RATIO 1/2 AVERAGE 3.27 3.43 AVERAGE 4.44 4.97 2X 7.05 9.55 3X 11.04 23.39 Liver Panel: No results found for: ALB HgA1C: Lab Results Component Value Date HGBA1C 6.1 (H) 02/15/2016 ABG: CV HISTORY: ECHO: No results found. STRESS: No results found. HOLTER: No results found. CARDIAC CATH: No results found. CAROTID: No results found. CXR: X-ray chest 2 views Result Date: 06/12/2024 Procedure: Chest x-ray performed Number of views:2 History:Chest pain Covid positive Comparison:01/20/2020 Findings: The heart and lungs show no acute findings, and the mediastinum and brennen are grossly negative . Impression: 1. No acute change. Finalized by Marvin Ackerman MD on 06/12/2024 9:29 PM EKG: TELEMETRY: PHYSICAL EXAM Admission Weight: Weight: 85.7 kg (189 lb) I/O last 3 completed shifts: In: 1000.1 [IV Piggyback:1000.1] Out: - Weight change: Wt Readings from Last 3 Encounters: 06/13/24 77.1 kg (170 lb) 08/14/22 78.9 kg (174 lb) 02/14/21 82.1 kg (181 lb) Vitals: Vitals: 06/13/24 0030 06/13/24 0253 06/13/24 0747 06/13/24 1200 BP: 117/61 122/83 132/64 138/61 Pulse: 83 74 77 71 Resp: 15 16 16 16 Temp: 36.9 C (98.4 F) 36.5 C (97.7 F) 36.7 C (98 F) TempSrc: Oral Oral Oral SpO2: 95% 97% 99% 96% Weight: 77.1 kg (170 lb) Height: 152.4 cm (5') Admit Weight Weight: 85.7 kg (189 lb) Last 3 Weights Last 3 Weight Readings 06/12/24 1918 06/13/24 0253 Weight: 85.7 kg (189 lb) 77.1 kg (170 lb) Body mass index is 33.2 kg/m . INTAKE/OUTPUT I/O last 3 completed shifts: In: 1000.1 [IV Piggyback:1000.1] Out: - Intake/Output Summary (Last 24 hours) at 06/13/2024 1400 Last data filed at 06/12/2024 2334 Gross per 24 hour Intake 1000.14 ml Output -- Net 1000.14 ml General appearance: Alert oriented and cooperative, in no acute distress Skin: Warm and dry to touch Head: Normocephalic, without obvious abnormality, atraumatic Eyes: Conjunctivae unremarkable, EOMs intact, sclera non icteric Neck: No JVD, no carotid bruit, neck supple, trachea midline Lungs: Fairly clear Heart:: RRR with normal S1 and S2 , no murmurs and no gallops. Abdomen: Soft, non-tender, bowel sounds normal Extremities: No edema Neurologic: Oriented to time, person and place, affect appropriate, no focal/major motor or sensorydefects noted Psychiatric: Appropriate mood, memory and judgment ASSESSMENT 1. Intense discomfort lasting over 5 hours left-sided chest recent diagnosis of COVID. Mildly elevated cardiac enzymes. ECG right bundle-branch block PLAN It seems that she would have a higher peak of troponin given the intense discomfort and essentiallythis would be 0.1 from the prior troponin draw levels Would check another troponin to make sure it has not increasing significantly if it levels off and/or coming down then more than likely this is not cardiac chest discomfort. Probably either way a stress test at some point would be warranted to make sure were not missing anything Teresa Odom MD This note was completed using a voice vehicle and equipment cleaner system. Every effort was made to ensure accuracy. However, inadvertent computerized vehicle and equipment cleaner errors may be present. * Jah Blunt RPH - 06/13/2024 7:26 AM EDTAssociated Order(s): PHARMACY TO DOSE MEDICATION Reviewed criteria for Remdesivir, patient currenlty does not meet oxygen saturation (SpO2) ? 94% onroom air, or requiring supplemental oxygen (increased from baseline if on home O2). Will continue to follow for any changes in oxygen saturation. Jah Blunt PharmD [facility] documented in this encounterChillicothe HospitalYuuConnect [id number] Consult note* Jah Blunt RPH - 06/13/2024 7:26 AM EDTAssociated Order(s): PHARMACY TO DOSE MEDICATION Reviewed criteria for Remdesivir, patient currenlty does not meet oxygen saturation (SpO2) ? 94% onroom air, or requiring supplemental oxygen (increased from baseline if on home O2). Will continue to follow for any changes in oxygen saturation. Jah Blunt PharmCheo [facility]07-23-2024 Plan of care note* Plan of Care - Mohini Barrios RN - 06/13/2024 3:01 AM EDT Problem: Pain Goal: Patient goal is pain score less than 4, able to rest, and participant in treatment plan as appropriate Description: INTERVENTIONS: 1. Encourage patient or legal high school admissions representative to report early pain and ask for pain medicine when needed 2. Assess pain using appropriate pain scale and include the scale used when documenting 3. Administer analgesics based on type and severity of pain and evaluate response within appropriate time frame 4. Implement non-pharmacological measures as appropriate and evaluate response 5. Consider cultural and social influences on pain and pain management 6. Notify LIP if interventions ineffective or patient reports new pain 7. Monitor vital signs including pulse ox, end-tidal CO2 based on pain intervention 8. Reassess pain per policy 9. Teach patient or legal high school admissions representative interventions for comforting Outcome: Progressing Note: Evaluation of progress towards goal: ongoing Problem: Safety Goal: Patient will be injury free during hospitalization Description: INTERVENTIONS: 1. Assess patient's risk for falls and implement fall prevention plan of care per policy 2. Provide and maintain a safe environment 3. Proper use of double Identifiers 4. Medication administration using the 5 rights 5. Hand hygiene 6. Specimens are labeled at the bedside 7. Instruct patient/ patient high school admissions representative about use of safety devices 8. Include patient/ patient high school admissions representative in decisions related to safety Outcome: Progressing Note: Evaluation of progress towards goal: ongoing Problem: Glucose Imbalance Goal: Clinical indication of glucose balance is achieved Description: Patient's goal is: INTERVENTIONS 1. Monitor blood glucose levels as ordered 2. Administer medications as ordered 3. Notify physician of ineffective treatment plan Outcome: Progressing Note: Evaluation of progress towards goal: ongoing [facility]07-22-2024 NoteXR CHEST 2 VWS Procedure: Chest x-ray performed Number of views:2 History:Chest pain Covid positive Comparison:01/20/2020 Findings: The heart and lungs show no acute findings, and the mediastinum and brennen are grossly negative . Impression: 1. No acute change. Finalized by Marvin Ackerman MD on 06/12/2024 9:29 [facility] 06-12-2024 Note Procedure: Chest x-ray performed Number of views:2 History:Chest pain Covid positive Comparison:01/20/2020 Findings: The heart and lungs show no acute findings, and the mediastinum and brennen are grossly negative . Impression: 1. No acute change. Finalized by Marvin Ackerman MD on 06/12/2024 9:29 [id number] Emergency department Triage note* Jenny Salcido RN - 06/12/2024 7:15 PM EDT Pt states that she began having chest pain at 1800 today. Pt states tht she is Covid+ and is not sure if that is causing the chest pain but it did feel like the pain when she had previous MS. Pt states she is taking prednisone right now. [facility] [id number] Emergency department Note* Jenny Salcido RN - 06/12/2024 7:15 PM EDT Pt states that she began having chest pain at 1800 today. Pt states tht she is Covid+ and is not sure if that is causing the chest pain but it did feel like the pain when she had previous MS. Pt states she is taking prednisone right now. documented in this encounterChillicothe Hospitalbrand [facility]04-22-2024 Instructions* Patient Instructions* Ava Damon OD - 03/13/2024 11:10 AM EDT Dry eye is likely causing the blurred vision in the morning, and blurriness that gets worse with prolonged reading. Start using artificial tears 2-3 times daily, when needed. Here are some good iobl-jum-erlpcgi brands: Systane, Refresh, TheraTears Restart the pataday allergy drops in both eyes every morning during allergy seasons documented in this encounterParkview [facility]04-22-2024 NoteHNO ID: [id number] Author: AVA DAMON OD Service: ? Author Type: CORE COMPOSER MACHINE TENDER Type: Progress Notes Filed: 03/13/2024 11:12 Note [...] Ava Damon OD March 13, 2024 11:08 [facility]04-22-2024 History of Present illness Narrative* Ava Damon OD - 03/13/2024 11:08 AM EDT ASSESSMENT/PLAN: 1. Diabetes mellitus type [...] 13, 2024 11:08 AM documented in this encounterParkview Health Montpelier Hospital04-03-2024 History of Present illness Narrative* Migdalia German - 02/23/2024 10:45 AM EDT Pt called to cancel appt she is ill will call office to reschedule. documented in this encounterHENRICO [facility] Hospital Discharge instructions* Discharge Instructions* Chichi Castrejon RN - 02/23/2024 7:19 AM [...] may use ice to reduce soreness. Call [facility] at [phone] if you experience: Fever, chills or temperature over 100 Vomiting, Headache, persistent stiff neck, nausea, blurred vision Difficulty in urinating or unable to urinate with 8 hours Increase in weakness, numbness or loss of function Increased redness, swelling or drainage at the injection site documented in this encounterBON [facility] Hospital Discharge instructions* Discharge Instructions* Chichi Castrejon RN - 02/02/2024 7:20 AM [...] Please complete pain diary as instructed. Call [facility] at [phone] if you experience: Fever, chills or temperature over 100 Vomiting, Headache, persistent stiff neck, nausea, blurred vision Difficulty in urinating or unable to urinate with 8 hours Increase in weakness, numbness or loss of function Increased redness, swelling or drainage at the injection site documented in this encounterBON [facility]02-06-[facility] Evaluation note* Encounter Date Diagnosis Assessment Notes Treatment Notes Treatment Clinical Notes Dec, Acute cough (ICD-10 - R05.1) Dec, COPD exacerbation (ICD-10 - J44.1) Advised patient that rapid COVID/Influenza A/B test was negative today in office. Discussed diagnosis with patient in detail. Will treat today with antibiotic. Reviewed allergies and recent antibiotic use. Advised to take medications as prescribed, take with food and plenty of water, finish entire course. Encouraged supportive care as directed, push fluids and rest, may use Tylenol as needed for fever/discomfort, cool mist humidifier. May use Tessalon Perles, albuterol inhaler as directed. Patient to follow up with PCP in 2-3 days. Immediate eval if SOB, difficulty breathing, chest pain, dizziness, or other concerning symptoms. Patient verbalizes understanding and is agreeable to treatment plan Answer.To Other 06-23-2023 NoteHNO ID: [id number] Author: RT Brandyn(R) Service: Radiology Author Type: Dog Walker Type: Progress Notes Filed: 05/14/2023 1:06 PM [...] RT(R) May 14, 2023 1:06 [facility] [id number] Miscellaneous Notes* Telephone Encounter - Dominique Meneses LPN - 05/14/2023 1:24 PM EDT Pt came back to the front office supervisor requesting tramadol Spoke to pt and advised Dr Moore does not prescribe narcotics for chronic pain and will need to secure the tramadol from the prior prescriber-also noted in office visit note Pt stated the prescriber did not want to see her anymore Advised pt to see if another provider/PCP would possibly consider prescribing the tramadol Pt verbalized understanding documented in this encounterParkview Health Montpel[facility]06-23-2023 History of Present illness Narrative* Concepcion [...] supervised home exercise program (HEP): No 4. Roofer: No 5. What are your limitations: Standing [...] not taking: No sig reported) MV with Qxr-Lumdbuas-Vkqdma 0.4 mg-300 mcg- 250 mcg tab Take [...] Past Histories independently gathered by the clinical support architect and the remaining scribed note accurately describes [...] surgical care. No neurological deficits noted during [facility] exam. PT - Core stabilization exercises, [...] which included preparing to see the patient, osvx-tr-pbmm patient care, completing clinical documentation, obtaining and/or [...] Concepcion Moore DO, MBA documented in this encounterParkview Health Montpel[facility]06-20-2023 Miscellaneous Notes* Telephone Encounter - Frank Pillai - 05/11/2023 9:26 AM EDT 05/11/2023 LVM documented in this encounterParkview Health Montpel[facility] Hospital06-17-2023 Evaluation note* Encounter Date Diagnosis Assessment [...] fever. Patient verbalized understanding of treatment plan. Answer.To Other 05-30-2023 NoteCONSULTATION CONSULTATION DATE: 04/20/2023 TO: [facility] HISTORY: Patient presents today complaining of 5-7/10 [...] that she consider follow up with the [facility], as the patient is requesting the same. In the interim, I have asked her to discontinue her baclofen secondary to ineffectiveness. To continue with the tramadol until she follows up with her new physician and primary caregivers for pain management at the [facility], and we will facilitate that referral. As part of providing excellent, safe, comprehensive care, the following was completed at our patient's visit: 1. A medication reconciliation and review to ensure accurate knowledge of current/active medications, including asking our patients to inform us about any uksa-rml-nfbszwg medications or herbal remedies/nutritional supplements/alternative remedies. 2. [...] treatment options with their primary care provider.[facility] [id number] History of Present illness Narrative* Blayne Haro, [...] 26, 2023 3:00 PM documented in this encounterParkview Health [facility]pel[facility]03-23-2023 NoteCONSULTATION CONSULTATION DATE: 02/11/2023 TO: [facility] CHIEF COMPLAINT: Includes right sided hip pain, [...] of the iliohypogastric nerve under fluoroscopic guidance.[facility] 12-23-2022 Miscellaneous Notes* Telephone Encounter - Yaquelin Wang - 12/23/2022 3:30 PM EST Called patient and told her about the recommendation to see Dr. Childers in [place]. * Telephone Encounter - Yaquelin Wang - [...] would like it to go to the [facility] on [address] in [place]. Please advise. documented in this encounterParkview Health Montpel[facility] Hospital01-17-2023 History of Present illness Narrative* Shanna [...] lotion, powder, jewelry, piercings, perfume, makeup, nail greek, hair accessories, or hair spray on the day of surgery. Wear loose comfortable clothing. Leave your valuables at home. Bring a storage case for any glasses/contacts. An adult who is responsible for you MUST drive you home and should be with you for the first 24 hours after surgery. The Day of Surgery: Arrive at [facility] at the time directed by your surgeon and check in at the desk. If you have a living will or healthcare power of [place] attorney, please bring a copy. You will be taken to the pre-op holding area where you will be prepared for surgery. A physical assessment will be performed by a nurse practitioner or clerical warehouse worker. Your IV will be started and you [...] and understanding verbalized. documented in this encounterBON [employer] Phone: [phone] NoteCONSULTATION CONSULTATION DATE: 11/10/2022 CHIEF COMPLAINT: Low [...] mg b.i.d. will be refilled for her.[facility] [id number] Evaluation note* Encounter Date Diagnosis Assessment Notes [...] the ER for worsening symptoms or concerns. Answer.To Other 08-10-2022 NoteCONSULTATION CONSULTATION DATE: 07/01/2022 This is a pleasant 72-year-old female returning to the clinic for a 3-month follow-up for her chronic lower back pain and right hip pain. Today she was complaining of right buttocks pain and hip pain that she feels is affecting her ambulation. She rates it 7 out of 10 and describes it as sharp. 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 Please advise. documented in this encounterParkview Health [facility]05-16-2022 Evaluation note* Encounter Date Diagnosis Assessment [...] Patient care instructions given in writting by [facility] document. Answer.To Other 03-31-2022 History of Present illness Narrative* [...] 19, 2022 11:51 AM documented in this encounterParkview Health [facility]pel[facility]09-12-2021 Chief complaint Narrative - Reported* MARAH [...] a history of prior heart catheterization in [place] remotely that revealed normal coronary arteries. I [...] and also offered conservative based medical therapies. -[place] [address] DO Work Phone: [phone] 288-846212-13-2010 History of Past illness Narrative* Problem Noted Date Resolved Date Senile cataract, unspecified 11/03/2010 documented as of this encounter (statuses as of 02/19/2022) [facility]12-13-[facility] History of Past illness Narrative* Problem Noted Date Resolved Date Senile cataract, unspecified 11/03/2010 documented as of this encounter (statuses as of 04/15/2022) [place] [address]-13-2010 History of Past illness Narrative* Problem Noted Date Resolved Date Senile cataract, unspecified 11/03/2010 documented as of this encounter (statuses as of 12/23/2022) [place] [address]-13-2010 History of Past illness Narrative* Problem Noted Date Resolved Date Senile cataract, unspecified 11/03/2010 documented as of this encounter (statuses as of 03/29/2023) [place] [address]-13-2010 History of Past illness Narrative* Problem Noted Date Resolved Date Senile cataract, unspecified 11/03/2010 documented as of this encounter (statuses as of 05/11/2023) [place] [address]-13-2010 History of Past illness Narrative* Problem Noted Date Resolved Date Senile cataract, unspecified 11/03/2010 documented as of this encounter (statuses as of 05/14/2023) [facility]12[facility] History of Past illness Narrative* Problem Noted Date Resolved Date Senile cataract, unspecified 11/03/2010 documented as of this encounter (statuses as of 05/14/2023) [facility] HospitalChi complaint Narrative - Johnathon SILVA is being seen for a consultation for abnormal test(s) results.-[facility] [employer] Work Phone: Evaluation note* Diagnosis Diabetes mellitus [...] Other retinal disorders documented in this encounter [facility] HospitalEvaluation note* Diagnosis Other iron deficiency anemia documented in this encounter [employer] Phone: evaluation note* Diagnosis Chronic anemia Anemia, unspecified Weight loss Loss of weight Iron deficiency anemia secondary to inadequate dietary iron intake Gastroesophageal reflux disease without esophagitis Esophageal reflux documented in this encounter [facility] [employer] Phone: evaluation note* Diagnosis Left facial pain- Primary Headache Keratoconjunctivitis sicca of both eyes not specified as Sjogren's Keratoconjunctivitis sicca, not specified as Sjogren's Bilateral cornea scars Corneal opacity, unspecified Diabetes mellitus type 2 without retinopathy (HCC) Type II or unspecified type diabetes mellitus without mention of complication, not stated as uncontrolled documented in this encounter [facility] HospitalEvaluation note* Diagnosis Spinal stenosis of lumbar region, unspecified whether neurogenic claudication present- Primary Degenerative arthropathy of spinal facet joint Spondylosis of unspecified site without mention of myelopathy Myalgia Mylagia and myositis, unspecified Postural imbalance Disorders of soft tissue, unspecified [facility]* Diagnosis Lumbosacral spondylosis without myelopathy- Primary documented in this encounter [facility]* Diagnosis Diabetes mellitus type 2 without [...] by other means [facility]* Diagnosis Other chronic allergic conjunctivitis of both eyes- Primary Keratoconjunctivitis sicca of both eyes not specified as Sjogren's Keratoconjunctivitis sicca, not specified as Sjogren's Bilateral cornea scars Corneal opacity, unspecified Pseudophakia of both eyes Lens replaced by other means documented in this encounter [facility] noteNo assessment information availableMercy Health St. 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 (Multi) BMI 34.0-34.9,adult Never smoked tobacco documented in this encounter [facility] Work Phone: Evaluation note* Diagnosis COVID-19- Primary COVID-19 Hypertensive urgency Chest pain, unspecified type Hyperglycemia Other abnormal glucose Tachycardia Unspecified tachycardia COVID-19 virus infection Chronic obstructive pulmonary disease with acute lower respiratory infection ([facility]) 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 Type 2 diabetes mellitus without complication, without long-term current use of insulin ([facility]) documented in this encounter [facility]* Diagnosis Anemia, unspecified type- Primary Diarrhea, unspecified type Family history of colon cancer Family history of malignant neoplasm of gastrointestinal tract documented in this encounter [facility] SystemHistory general Narrative - Reported* Type Description Date Medical History diabetes mellitus Medical History Hypothyroidism Medical History osteoporosis Medical History Chronic obstructive pulmonary di sease Medical History Hearing loss Medical History asthma Surgical History cholecystectomy Surgical History partial hysterectomy Surgical History tonsillectomy Surgical History colonoscopy Surgical History ear surgery Surgical History back ablasion Hospitalization History See Above Answer.To Other History general Narrative - Reported* Type Description Date Medical History diabetes mellitus Medical History Hypothyroidism Medical History osteoporosis Medical History Chronic obstructive pulmonary di sease Medical History Hearing loss Medical History asthma Surgical History cholecystectomy Surgical History partial hysterectomy Surgical History tonsillectomy Surgical History colonoscopy Surgical History ear surgery Surgical History back ablasion Hospitalization History See Above Hospitalization History blood pressure elevated Answer.To Other Hospital Discharge instructionsNot on filedocumented in this encounterProNextEnergy Health SystemInstructionsNot on filedocumented in this encounterProSureline Systems SystemInstructionsNot on filedocumented in this encounterProSureline Systems SystemInstructionsNot on filedocumented in this encounterProSureline Systems SystemReason for referral (narrative)* - Pending Review Specialty Diagnoses / Procedures Referred By Bernardino mcmahan Referred To Contact Physical Therapy Diagnoses Spinal stenosis of lumbar region, unspecified whether neurogenic claudication present Degenerative arthropathy of spinal facet joint Myalgia Postural imbalance Procedures CONSULT [place] [address] [place] [address] Referral ID Status Reason Start Date Expiration Date V isits Requested Visits Authorized [id number] Pending Review 05/14/2023 08/12/2023 1 1 * Diagnostic Procedure Only (Routine) - Closed Specialty Diagnoses / Procedures Referred By Bernardino mcmahan Referred To Contact XR IMAGING Diagnoses Spinal stenosis of lumbar region, unspecified whether neurogenic claudication present Degenerative arthropathy of spinal facet joint Myalgia Postural imbalance Procedures XR PELVIS 1V AP RADIOLOGIC EXAMINATION PELVIS 1/[place] [address] [place] [address] Xr Imaging Referral ID Status Reason Start Date Expiration Date V isits Requested Visits Authorized [id number] Closed Auto-Generate d Referral 05/14/2023 06/12/2024 1 1 * Diagnostic Procedure Only (Routine) - Closed Specialty Diagnoses / Procedures Referred By Bernardino mcmahan Referred To Contact XR IMAGING Diagnoses Spinal stenosis of lumbar region, unspecified whether neurogenic claudication present Degenerative arthropathy of spinal facet joint Myalgia Postural imbalance Procedures XR LUMBAR GENERAL 3V AP/LAT/L5-S1 RADEX SPINE LUMBOSACRAL 2/3 [place] [address] [place] [address] Xr Imaging Referral ID Status Reason Start Date Expiration Date V isits Requested Visits Authorized [id number] Closed Auto-Generate d Referral 05/14/2023 06/12/2024 1 1 [facility] History of Present Illness * Gya Lin RN - 02/26/2021 1:45 PM EDT [...] lotion, powder, jewelry, piercings, perfume, makeup, nail greek, hair accessories, or hair spray on the day of surgery. Wear loose comfortable clothing. 4. Leave your valuables at home. Bring a storage case for any glasses/contacts. 5. An adult who is responsible for you MUST drive you home and should be with you for the first 24 hours after surgery. The Day of Surgery: Arrive at [facility] at the time directed by your surgeon and check in at the desk. If you have a living will or healthcare power of [place] attorney, please bring a copy. You will be taken to the pre-op holding area where you will be prepared for surgery. A physical assessment will be performed by a nurse practitioner or clerical warehouse worker. Your IV will be started and you [...] Documents on File Type Date Recorded Patient Research And Insights Executive Expl anation ACP-Advance Directive ACP-Power of Brand Lead Documents on File Type Date Recorded Patient Research And Insights Executive Expl anation ACP-Advance Directive ACP-Power of Brand Lead Advance Directive Response Recorded Date/ Time Advance Directives No September 08, 2021 8:39am Date Activated Date Inactivated Comments 06/12/2024 11:18 PM 06/13/2024 8:47 PM Date Activated Date Inactivated Comments 06/12/2024 11:18 PM Assessments Diagnosis Pre-op testing- Primary Preoperative [...] if your caregiver approves them. Only take bnal-pqg-esutdyz or prescription medicines for pain, discomfort, or [...] 11/08/2006 Document Revised: 05/09/2013 Document Reviewed: 03/08/2013 [facility] Patient Information 2013 [employer]. Colonoscopy: What to Expect at Home Your [...] Where can you learn more? Go to [email or web address] and sign in to your Active[employer] account. Enter E264 in the Search Health Information box to learn more about Colonoscopy: What to Expect at Home. If you do not have an account, please click on the Sign Up Now link. [id number] [employer] Care instructions adapted under license by [facility]. This care instruction is for use with your licensed healthcare professional. If you have questions about a medical condition or this instruction, always ask your healthcare professional. [employer] disclaims any warranty or liability for your use of this information. Content Version: [id number]; Last Revised: January 11, 2013 EGD DISCHARGE [...] of fluids when exercising. MEDICATIONS: Take an lfqa-wgy-owiurnu fiber supplement as noted above twice daily. [...] to call your physician or the hospital pole sander operator if you have any questions, and [...] Whole-grain breads, muffins, bagels, or verna bread [place] bread Whole-wheat crackers or crisp breads Whole-grain or bran cereals Oatmeal, oat bran, or grits Wheat germ Whole-wheat pasta and brown rice Read the ingredients list on food labels. Look for products that list whole as the first ingredient (eg, whole-wheat, whole oats). Choose cereals with at least 2 grams of fiber per serving. Vegetables All vegetables, especially asparagus, rocha sprouts, broccoli, Onia sprouts, cabbage, carrots, cauliflower, celery, corn, greens, [...] All nuts and seeds, especially almonds, peanuts, Edmond nuts, cashews, peanut butter, walnuts, sesame and [...] be sent through Care Everywhere. * Esophagitis (Macedonian) documented in this encounter Family History Unknown [...] Unknown father Unknown mother Unknown Summary Purpose Reason for Referral Specialty Diagnoses / Procedures Referred By Contac t Referred To Contact Procedures Discharge Follow-Up Joyce Krishna APRN-CNP [address] [place] [address] Referral ID Status Reason Start Date Expiration Date V isits Requested Visits Authorized [id number] Pending Review 06/13/2024 06/13/2025 1 1 Specialty Diagnoses / Procedures Referred By Contac t Referred To Contact Diagnoses COVID-19 Chest pain, unspecified type Procedures Follow-up with primary care provider Joyce Krishna APRN-CNP [address] [place] [address] Referral ID Status Reason Start Date Expiration Date V isits Requested Visits Authorized [id number] Pending Review 06/13/2024 06/13/2025 1 1 Specialty Diagnoses / Procedures Referred By Contac t Referred To Contact Procedures Adult diet Joyce Krishna APRN-CNP [address] [place] [address] Referral ID Status Reason Start Date Expiration Date V isits Requested Visits Authorized [id number] Pending Review 06/13/2024 06/13/2025 1 1 Specialty Diagnoses / Procedures Referred By Contac t Referred To Contact Diagnoses Chest pain, unspecified type RBBB Procedures ECG 12 Lead Atul Frazier, [address] [facility], [facility] [place] [address] [place] [address] Referral ID Status Reason Start Date Expiration Date V isits Requested Visits Authorized [id number] Authorized 07/26/2024 07/26/2025 1 1 Chief Complaint and Reason for Visit Chief Complaint Admit Date Unknown September 30, 2024 9 :27am Cough December 01, 2024 1 0:14am yeast infection December 19, 2024 9 :24am Dysuria December 19, 2024 1 0:15am Reason for Visit Admit Date Bronchitis December 01, 2024 1 0:14am Acute UTI December 19, 2024 9 :24am Additional Source Comments Reason for Visit (unrecogniz ed section and content) Status Reason Specialty Diagnoses / Procedures Re ferred By Contact Referred To Contact Diagnoses Anemia ANEMIA COVID 03/03 Procedures AK ESOPHAGOGASTRODUODENOSCOPY TRANSORAL DIAGNOSTIC AK COLONOSCOPY FLX DX W/COLLJ SPEC WHEN PFRMD EGD COLONOSCOPY DIAGNOSTIC Panguludarren, Bobbi Veloz MD [address] [facility] [address] [place] [address] [facility] Reason Comments Keratoconjunctivitis sicca Reason Comments Patient Question Reason Onset Date Comments Opened In Error 12/23/2022 Reason Comments Eye Problem Left Eye Reason Comments Appointment Cancelled Reason Comments Pain Rt lower back pain Reason Comments Medication Question Specialty Diagnoses / Procedures Referred By Contac t Referred To Contact Pain Management Diagnoses Spondylosis without myelopathy or radiculopathy, lumbosacral region Procedures AK NJX DX/THER AGT PVRT FACET JT LMBR/SAC 1 LEVEL AK NJX DX/THER AGT PVRT FACET JT LMBR/SAC 2ND LEVEL Trinidad Licona MD [address] [place] [address] Trinidad Licona MD [address] [place] [address] Referral ID Status Reason Start Date Expiration Date Visits Re quested Visits Authorized [id number] Open 01/05/2024 01/04/2025 1 1 Specialty Diagnoses / Procedures Referred By Contac t Referred To Contact Pain Management Diagnoses Spondylosis without myelopathy or radiculopathy, lumbosacral region Procedures AK DSTR NROLYTC AGNT PARVERTEB FCT SNGL LMBR/SACRAL AK DSTR NROLYTC AGNT PARVERTEB FCT ADDL LMBR/SACRAL Trinidad Licona MD [address] [place] [address] Trinidad Licona MD [address] [place] [address] Referral ID Status Reason Start Date Expiration Date Visits Re quested Visits Authorized [id number] Open 02/23/2024 05/24/2024 1 1 Reason Comments Diabetic Eye Exam Reason Comments Tearing Both Eyes Reason Comments Medication Problem Reason Comments New Patient Visit Reestablish Specialty Diagnoses / Procedures Referred By Contac t Referred To Contact Diagnoses Chest pain, unspecified type RBBB Procedures ECG 12 Lead Atul Frazier, [address] [facility], [facility] [place] [address] [place] [address] Referral ID Status Reason Start Date Expiration Date V isits Requested Visits Authorized [id number] Authorized 07/26/2024 07/26/2025 1 1 Reason Comments Chest Pain Specialty Diagnoses / Procedures Referred By Contac t Referred To Contact Diagnoses Chest pain Tachycardia Hyperglycemia Hypertensive urgency Chest pain, unspecified type COVID-19 Fausto Marcos MD [address] [facility] [address] [place] [address] Referral ID Status Reason Start Date Expiration Date Visits Re quested Visits Authorized [id number] 1 1 Reason Comments Diarrhea Colonoscopy INFORMATION SOURCE (unrecogn ized section and content) DATE CREATED AUTHOR 09/03/2021 [employer] DATE CREATED AUTHOR AUTHOR'S ORGANIZ ATION 04/30/2023 [facility] DATE CREATED AUTHOR AUTHOR'S ORGANIZ ATION 05/15/2023 [facility] DATE CREATED AUTHOR AUTHOR'S ORGANIZ ATION 12/03/2023 [facility] DATE CREATED AUTHOR AUTHOR'S ORGANIZ ATION 03/23/2024 [facility] DATE CREATED AUTHOR AUTHOR'S ORGANIZ ATION 06/15/2024 [facility] DATE CREATED AUTHOR AUTHOR'S ORGANIZ ATION 07/27/2024 [facility] DATE CREATED AUTHOR AUTHOR'S ORGANIZ ATION 11/06/2024 [facility] DATE CREATED AUTHOR AUTHOR'S ORGANIZ ATION 12/21/2024 [facility] DATE CREATED AUTHOR AUTHOR'S ORGANIZ ATION 01/08/2025 [facility] Source Comments (unrecognize d section and content) In the event this informatio n is protected by the Federal Confidentiality of Alcohol and Drug Abuse Patient Records regulations: The Federal rules restrict any use of the information to criminally investigate or prosecute any alcohol or drug abuse patient.[facility] the event this information is protected by the Federal Confidentiality of Alcohol and Drug Abuse Patient Records regulations: The Federal rules restrict any use of the information to criminally investigate or prosecute any alcohol or drug abuse patient.[facility] Hospital[facility] the event this information is protected by the Federal Confidentiality of Alcohol and Drug Abuse Patient Records regulations: The Federal rules restrict any use of the information to criminally investigate or prosecute any alcohol or drug abuse patient.[facility] Hospital[facility] the event this information is protected by the Federal Confidentiality of Alcohol and Drug Abuse Patient Records regulations: The Federal rules restrict any use of the information to criminally investigate or prosecute any alcohol or drug abuse patient.[facility] Hospital[facility] the event this information is protected by the Federal Confidentiality of Alcohol and Drug Abuse Patient Records regulations: The Federal rules restrict any use of the information to criminally investigate or prosecute any alcohol or drug abuse patient.[facility] HospitalIn the event this information is protected by the Federal Confidentiality of Alcohol and Drug Abuse Patient Records regulations: The Federal rules restrict any use of the information to criminally investigate or prosecute any alcohol or drug abuse patient.[facility] Hospital[facility] the event this information is protected by the Federal Confidentiality of Alcohol and Drug Abuse Patient Records regulations: The Federal rules restrict any use of the information to criminally investigate or prosecute any alcohol or drug abuse patient.[facility] Hospital[facility] the event this information is protected by the Federal Confidentiality of Alcohol and Drug Abuse Patient Records regulations: The Federal rules restrict any use of the information to criminally investigate or prosecute any alcohol or drug abuse patient.[facility] Hospital[facility] the event this information is protected by the Federal Confidentiality of Alcohol and Drug Abuse Patient Records regulations: The Federal rules restrict any use of the information to criminally investigate or prosecute any alcohol or drug abuse patient.[facility] Hospital[facility] the event this information is protected by the Federal Confidentiality of Alcohol and Drug Abuse Patient Records regulations: The Federal rules restrict any use of the information to criminally investigate or prosecute any alcohol or drug abuse patient.[facility] HospitalIn the event this information is protected by the Federal Confidentiality of Alcohol and Drug Abuse Patient Records regulations: The Federal rules restrict any use of the information to criminally investigate or prosecute any alcohol or drug abuse patient.[facility] HospitalIn the event this information is protected by the Federal Confidentiality of Alcohol and Drug Abuse Patient Records regulations: The Federal rules restrict any use of the information to criminally investigate or prosecute any alcohol or drug abuse patient.[facility] Care Teams (unrecognized sec tion and content) 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 Relationship Specialty Start Date End Date Smith Sheikh MD [address] [place] [id number] PCP - General 01/08/14 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 Relationship Specialty Start Date End Date Smith Sheikh MD [address] [place] [id number] PCP - General Family Medicine 05/18/13 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 Relationship Specialty Start Date End Date Smith Sheikh MD [address] [place] [id number] PCP - General Family Medicine 05/18/13 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 Relationship Specialty Start Date End Date Smith Sheikh MD [address] [place] [phone] PCP - General 01/08/14 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 Relationship Specialty Start Date End Date Smith Sheikh MD [address] [place] [id number] PCP - General Family Medicine 05/18/13 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 Relationship Specialty Start Date End Date Smith Sheikh MD [address] [place] [id number] PCP - General 01/08/14 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 Relationship Specialty Start Date End Date Smith Sheikh MD [address] [place] [address], [place] [address] PCP - General 01/08/14 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 Relationship Specialty Start Date End Date Smith Sheikh MD [address] [place] [id number] PCP - General 01/08/14 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 Relationship Specialty Start Date End Date Smith Sheikh MD [address] [place] [address] [id number] PCP - General 01/08/14 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 Relationship Specialty Start Date End Date Smith Sheikh MD [address] [place] [phone] PCP - General Family Medicine 05/18/13 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 Relationship Specialty Start Date End Date Smith Sheikh MD [address] [place] [phone] PCP - General Family Medicine 05/18/13 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 Relationship Specialty Start Date End Date Smith Sheikh MD [address] [place] [address] [id number] PCP - General 01/08/14 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 Relationship Specialty Start Date End Date Smith Sheikh MD [address] [place] [address] PCP - General 01/08/14 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 Relationship Specialty Start Date End Date Smith Sheikh MD [address] [place] [address] PCP - General 01/08/14 Team Status: Active Member Role Status Dates Smith Sheikh MD Primary Care Provider Active Team Status: Inactive Member Role Status Dates Smith Sheikh MD Primary Care Provider Active Start: September 30, 2024 End: September 30, 2024 Gabriela Villatoro DO Attending Provider Active Start: September 30, 2024 End: September 30, 2024 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 Relationship Specialty Start Date End Date Smith Sheikh MD [address] [place] [phone] PCP - General Family Medicine 07/26/24 Team Status: Inactive Member Role Status Dates Smith Sheikh MD Primary Care Provider Active Start: December 01, 2024 End: December 01, 2024 Felisha Mcbride APRN Attending Provider Active S tart: December 01, 2024 End: December 01, 2024 Team Status: Inactive Member Role Status Dates Smith Sheikh MD Primary Care Provider Active Start: December 19, 2024 End: December 19, 2024 Courtney Perez APRN Attending Provider Active Start: December 19, 2024 End: December 19, 2024 Team Status: Inactive Member Role Status Dates Courtney Perez APRN Attending Provider Active Start: December 19, 2024 End: December 19, 2024 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 Relationship Specialty Start Date End Date Smith Sheikh MD [address] [place] [address] PCP - General Family Medicine 12/07/17 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 Relationship Specialty Start Date End Date Smith Sheikh MD [address] [place] [address] PCP - General 01/08/14 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 Relationship Specialty Start Date End Date Smith Sheikh MD [address] [place] [address] PCP - General Family Medicine 12/07/17 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 Relationship Specialty Start Date End Date Smith Sheikh MD [address] [place] [id number] PCP - General Family Medicine 12/07/17 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 Relationship 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 Start Date End Date Smith Sheikh MD [address] [place] [id number] PCP - General Family Medicine 12/07/17 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 Relationship 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 Start Date End Date Smith Sheikh MD [address] [place] [id number] PCP - General Family Medicine 12/07/17 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 Relationship 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 Start Date End Date Smith Sheikh MD [address] [place] [id number] PCP - General Family Medicine 12/07/17 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 Relationship Specialty Start Date End Date Smith Shiekh MD [address] [place] [id number] PCP - General Family Medicine 12/07/17 Goals (unrecognized section and content) Goals may be documented in a n alternate section Scheduled Active and Recently Administ ered Medications (unrecognized section and content) Medication Order 06/11/2024 06/12/2024 06/13/2024 acetaminophen (TYLENOL EXTRA STRENGTH) tablet 1,000 mg (COMPLETED) 1,000 mg, oral, Once, On Wed06/12/24 at 1925, For 1 dose 1952 (Given - Provider: Dillon Machuca)1999 (Canceled Entry - Provider: Arlette Garza RN) aspirin EC tablet 81 mg 81 mg, oral, Daily, First dose on Wed06/13/24 at 1445, Do not crush or chew. 2100 (Due - Provider : Myrna Meng, DERICK - Comment: patient takes at night) atorvastatin (LIPITOR) tablet 10 mg 10 mg, oral, Nightly, First dose on Wed06/13/24 at 2200, Look-alike/sound-alike medication - verify indication for use. 0 (Due) heparin (porcine) injection 5,000 Units 5,000 Units, subcutaneous, Every 8 hours scheduled, First dose on Wed06/13/24 at 0600, Notify prescriber if INR greater than 1.9, hemoglobin less than 10 mg/dL, aPTT greater than 40 seconds, and/or platelet count less than 100,000/mm Look-alike/sound-alike medication - verify indication for use. Observe for bleeding. 0643 (Given - Provid er: Mohini Barrios RN)1520 (Given - Provider: Myrna Meng RN)2200 (Due) insulin lispro (HumaLOG) injection 2-10 Units 2-10 Units, subcutaneous, 3 times daily with meals, First dose on Wed06/13/24 at 0800, Daytime hyperglycemia dosing. For blood glucose 151-200 mg/dL, give 2 units. For blood glucose 201-250 mg/dL, give 4 units. For blood glucose 251-300 mg/dL, give 6 units. For blood glucose 301-350 mg/dL, give 8 units. For blood glucose 351-400 mg/dL, give 10 units. Give even if NPO or meals skipped. Do NOT give more often then every 4 hours when NPO. Notify prescriber if blood glucose greater than 400 mg/dL. Look-alike/sound-alike medication - verify indication for use. Prime with 2 units of insulin prior to administration. Prandial/supplemental Insulin. Pre-filled pens stable 28 days at room temperature. Insulin lispro should be administered within 15 minutes before or immediately after a meal. 0944 (Given - Provid er: Myrna Meng RN)1313 (Given - Provider: Myrna Meng RN)1707 (Given - Provider: Myrna Meng RN) insulin lispro (HumaLOG) injection 2-8 Units 2-8 Units, subcutaneous, Nightly, First dose on Wed06/12/24 at 2320, Bedtime hyperglycemia dosing. For blood glucose 201-250 mg/dL, give 2 units. For blood glucose 251-300 mg/dL, give 4 units. For blood glucose 301-350 mg/dL, give 6 units. For blood glucose 351-400 mg/dL, give 8 units. Give even if NPO or meals skipped. Do NOT give more often then every 4 hours when NPO. Notify prescriber if blood glucose greater than 400 mg/dL. Look-alike/sound-alike medication - verify indication for use. Prime with 2 units of insulin prior to administration. Prandial/supplemental Insulin. Pre-filled pens stable 28 days at room temperature. Insulin lispro should be administered within 15 minutes before or immediately after a meal. 2320 (Due) 2200 (Due) insulin regular (HumuLIN R,NovoLIN R) injection 10 Units (COMPLETED) 10 Units, subcutaneous, Once, On Wed06/12/24 at 2205, For 1 dose, Look-alike/sound-alike medication - verify indication for use. Prandial/supplemental insulin. Stable for 28 days at room temperature. 2223 (Given - Provider: Dillon Machuca) labetaloL (NORMODYNE,TRANDATE) injection 20 mg (COMPLETED) 20 mg, intravenous, Once, On Wed06/12/24 at 2310, For 1 dose, For systolic blood pressure greater than 180 mmHg Look-alike/sound-alike medication - verify indication for use. 2330 (Given - Provider: Dillon Machuca) pantoprazole (PROTONIX) EC tablet 40 mg 40 mg, oral, Every morning before breakfast, First dose on Wed06/13/24 at 0700, Look-alike/sound-alike medication - verify indication for use. If patient is receiving enteral feeding, consider alternative PPI or continue IV pantoprazole until the delayed-release tablet can be taken orally, Indication: GERD 0643 (Given - Provid er: Mohini Barrios RN) predniSONE (DELTASONE) tablet 40 mg 40 mg, oral, Daily with breakfast, First dose on Wed06/13/24 at 1445, Look-alike/sound-alike medication - verify indication for use. Food-Drug Interaction Education Required May alter blood glucose or insulin requirements Take/give with food Look-alike/sound-alike medication - verify indication for use. 1524 (Given - Provid er: Myrna Meng RN) sodium chloride 0.9 % bolus (COMPLETED) 1,000 mL, intravenous, at 984 mL/hr, Administer over 61 Minutes, Once, On Wed06/12/24 at 2205, For 1 dose 2219 (New Bag - Provider: Dillon Machuca)222 (Paused - Provider: Dillon Machuca)223 (Restarted - Provider: Dillon Machuca)232 (Paused - Provider: Dillon Machuca)232 (Restarted - Provider: Dillon Machuca)233 (Stop Bag - Provider: Dillon Machuca) tiZANidine (ZANAFLEX) tablet 4 mg 4 mg, oral, Once, On Wed06/12/24 at 2205, For 1 dose, Look-alike/sound-alike medication - verify indication for use. 2204 (Not Given - Provider: Arlette Garza RN - Reason: Patient/family refused - Comment: pt states she takes only 1mg at home and 2-4 mg is too much) PRN Medication Order 06/11/2024 06/12/2024 06/13/2024 acetaminophen (TYLENOL) tablet 650 mg 650 mg, oral, Every 4 hours PRN, mild pain - pain scale 1-3, headaches, temperature greater than 38 C, Temperature greater than 38.3 C, Starting on Wed06/12/24 at 2317, [Warning: Total Acetaminophen not to exceed more than 4 grams (4000 mg) in 24 hours] 0323 (Given - Provid er: Mohini Barrios RN - Comment: bilat leg pain) calcium gluconate 3,000 mg in sodium chloride 0.9 % 100 mL IVPB 3,000 mg, intravenous, at 43.3 mL/hr, Administer over 3 Hours, As needed, ionized calcium 3.5 to 3.9 mg/dL, Starting on Wed06/12/24 at 2317, IV Administration of calcium via a central or deep vein preferred. Avoid administration in small hand veins VESICANT (RED) calcium gluconate 4,000 mg in sodium chloride 0.9 % 250 mL IVPB 4,000 mg, intravenous, at 72.5 mL/hr, Administer over 4 Hours, As needed, ionized calcium 3.4 mg/dL or less, Starting on Wed06/12/24 at 2317, IV administration of calcium via a central or deep vein is preferred. Avoid administration in small hand veins. VESICANT (RED) calcium gluconate IVPB 2000 mg/100 mL (20 mg/mL premix) 2,000 mg, intravenous, at 50 mL/hr, Administer over 2 Hours, As needed, ionized calcium 4 to 4.3 mg/dL, Starting on Wed06/12/24 at 2317, IV Administration of calcium via a central or deep vein preferred. Avoid administration in small hand veins VESICANT (RED) dextrose (GLUTOSE) 40 % gel 15 g 15 g, oral, As needed, low blood sugar, blood glucose less than 70 mg/dL, Starting on Wed06/12/24 at 2317, If patient conscious and taking PO. If blood glucose is not greater than 70 mg/dL after initial treatment, repeat treatment. dextrose 5 % (D5W) infusion 100 mL/hr, intravenous, Continuous PRN, blood glucose less than 70 mg/dL, Starting on Wed06/12/24 at 2317, Use immediately following dextrose 50% or glucagon treatment for patients who are unconscious or NPO. Contact prescriber for additional orders. If blood glucose is not greater than 70 mg/dL after initial treatment, repeat treatment. dextrose 50 % in water (D50W) 50% solution 25 mL 25 mL, intravenous, As needed, low blood sugar, blood glucose less than 70 mg/dL and unconscious or NPO with IV access, Starting on Wed06/12/24 at 2317, Push over 1-3 minutes STAT. If conscious and not NPO, immediately follow with meal tray or high protein (7 grams) snack if tray not available. If NPO, initiate 5% dextrose in water at 100 mL/hr and contact prescriber for additional orders. If blood glucose is not greater than 70 mg/dL after initial treatment, repeat treatment. VESICANT (RED) Warning: HYPERTONIC solution. glucagon HCL injection 1 mg 1 mg, intramuscular, As needed, low blood sugar, blood glucose less than 70 mg/dL and unconscious or NPO without IV access., Starting on Wed06/12/24 at 2317, If conscious and not NPO, immediately follow with meal tray or high protein (7Grams) snack if tray not available. If NPO, initiate IV 5% Dextrose/Water at 100 mL/hr and contact prescriber for additional orders. If blood glucose is not greater than 70 mg/dL after initial treatment, repeat treatment. hydrALAZINE (APRESOLINE) injection 10 mg 10 mg, intravenous, Every 4 hours PRN, high blood pressure, SBP > 180, Starting on Wed06/12/24 at 2318, Look-alike/sound-alike medication - verify indication for use. Administer IV doses as a slow IV push; maximum rate: 5 mg/minute. HYDROcodone-acetaminophen (NORCO) 5-325 mg per tablet 1 tablet 1 tablet, oral, Every 4 hours PRN, moderate pain - pain scale 4-6, severe pain - pain scale 7-10, Starting on Wed06/13/24 at 0456, Look-alike/sound-alike medication - verify indication for use. 0643 (Given - Provid er: Mohini Barrios RN - Comment: leg pain) magnesium sulfate IVPB 2000 mg/50 mL in iso-osmotic water (40 mg/mL premix) 2,000 mg, intravenous, at 25 mL/hr, Administer over 120 Minutes, As needed, Magnesium level 1.7 to 1.9 mg/dL, or Ionized Magnesium level 0.45 to 0.5 mmol/L., Starting on Wed06/12/24 at 2317, Recheck magnesium level 4 hours after infusion complete. With each magnesium result continue the replacement orders as needed. magnesium sulfate IVPB 4000 mg/100 mL in iso-osmotic water (40 mg/mL premix) 4,000 mg, intravenous, at 25 mL/hr, Administer over 240 Minutes, As needed, Magnesium level 1.6 mg/dL or less, or Ionized Magnesium level 0.44 mmol/L or less, Starting on Wed06/12/24 at 2317, Recheck magnesium level 4 hours after infusion complete. With each magnesium result continue the replacement orders as needed. 0856 (New Bag - Prov ider: Myrna Meng RN)1256 (Stop Bag - Provider: Myrna Meng RN) ondansetron (PF) (ZOFRAN) injection 4 mg 4 mg, intravenous, Every 8 hours PRN, nausea, vomiting, Starting on Wed06/12/24 at 2317, Administer over 2-5 minutes. potassium chloride (KAYCIEL) 20 mEq/15 mL solution 30-50 mEq(Linked Group 1) 30-50 mEq, oral, As needed, potassium supplementation, Starting on Wed06/12/24 at 2317, Progress to oral potassium replacement when patient tolerating oral intake. If dose administered, recheck potassium level 4 hours after last dose. For potassium level 3.4 to 3.8 mmol/L and GFR 30 mL/min or greater=30 mEq. For potassium level 3.1 to 3.3 mmol/L and GFR 30 mL/min or greater=40 mEq. For potassium level 3 mmol/L or less and GFR 30 mL/min or greater=50 mEq. Must dilute before use - Mix in 3-8 ounces of water or juice before administration When administering in feeding tube, flush before and after per policy and monitor potassium levels 0949 (See Alternativ e - Provider: Myrna Meng RN) potassium chloride (KLOR-CON M 20) CR tablet 30-50 mEq(Linked Group 1) 30-50 mEq, oral, As needed, potassium supplementation, Starting on Wed06/12/24 at 2317, Progress to oral potassium replacement when patient tolerating oral intake. If dose administered, recheck potassium level 4 hours after last dose. For potassium level 3.4 to 3.8 mmol/L and GFR 30 mL/min or greater=30 mEq. For potassium level 3.1 to 3.3 mmol/L and GFR 30 mL/min or greater=40 mEq. For potassium level 3 mmol/L or less and GFR 30 mL/min or greater=50 mEq. Do not crush or chew. 0949 (Given - Provid er: Myrna Meng RN) sennosides-docusate sodium (SENOKOT-S) 8.6-50 mg 1 tablet 1 tablet, oral, Every 12 hours PRN, constipation, Starting on Wed06/12/24 at 2317 sod phos di, mono-K phos mono (K-PHOS NEUTRAL) 250 mg tablet 2 tablet(Linked Group 2) 2 tablet, oral, As needed, for phosphorus level 2.3 mg/dL or less., Starting on Wed06/12/24 at 2317, If dose administered, recheck phosphorus level 4 hours after last dose. Look-alike/sound-alike medication - verify indication for use. Give with a full glass of water. sodium chloride 0.9 % flush 3 mL 3 mL, intravenous, As needed, line care, before and after each intermittent use, Starting on Wed06/12/24 at 1914 sodium chloride 0.9 % flush bag 25 mL, intravenous, at 100 mL/hr, Administer over 15 Minutes, As needed, line care, line care after IVPB administration, Starting on Wed06/12/24 at 2317 sodium chloride 0.9 % infusion 20 mL/hr, intravenous, Continuous PRN, to maintain patency of lines, Starting on Wed06/12/24 at 2317 sodium phosphate 20 mmol in sodium chloride 0.9 % 100 mL IVPB(Linked Group 2) 20 mmol, intravenous, at 26.7 mL/hr, Administer over 4 Hours, As needed, for phosphorus level 2.3 mg/dL or less., Starting on Wed06/12/24 at 2317, Administer over 4 hours via dedicated line (central line). If administered, recheck phosphorus level 4 hours after infusion complete. Infuse using central line access. sodium phosphate 20 mmol in sodium chloride 0.9 % 250 mL IVPB(Linked Group 2) 20 mmol, intravenous, at 42.8 mL/hr, Administer over 6 Hours, As needed, for phosphorus level 2.3 mg/dL or less, Starting on Wed06/12/24 at 2317, Administer over 6 hours via dedicated line (peripheral line). If administered, recheck phosphorus level 4 hours after infusion complete. Linked Groups Order Group 1: potassium chloride (KLOR-CON M 20) CR tablet 30-50 mEqJump to med 30-50 mEq, oral, As needed, potassium supplementation, Starting on Wed06/12/24 at 2317, Progress to oral potassium replacement when patient tolerating oral intake. If dose administered, recheck potassium level 4 hours after last dose. For potassium level 3.4 to 3.8 mmol/L and GFR 30 mL/min or greater=30 mEq. For potassium level 3.1 to 3.3 mmol/L and GFR 30 mL/min or greater=40 mEq. For potassium level 3 mmol/L or less and GFR 30 mL/min or greater=50 mEq. Do not crush or chew. Or potassium chloride (KAYCIEL) 20 mEq/15 mL solution 30-50 mEqJump to med 30-50 mEq, oral, As needed, potassium supplementation, Starting on Wed06/12/24 at 2317, Progress to oral potassium replacement when patient tolerating oral intake. If dose administered, recheck potassium level 4 hours after last dose. For potassium level 3.4 to 3.8 mmol/L and GFR 30 mL/min or greater=30 mEq. For potassium level 3.1 to 3.3 mmol/L and GFR 30 mL/min or greater=40 mEq. For potassium level 3 mmol/L or less and GFR 30 mL/min or greater=50 mEq. Must dilute before use - Mix in 3-8 ounces of water or juice before administration When administering in feeding tube, flush before and after per policy and monitor potassium levels Group 2: sodium phosphate 20 mmol in sodium chloride 0.9 % 250 mL IVPBJump to med 20 mmol, intravenous, at 42.8 mL/hr, Administer over 6 Hours, As needed, for phosphorus level 2.3 mg/dL or less, Starting on Wed06/12/24 at 2317, Administer over 6 hours via dedicated line (peripheral line). If administered, recheck phosphorus level 4 hours after infusion complete. Or sodium phosphate 20 mmol in sodium chloride 0.9 % 100 mL IVPBJump to med 20 mmol, intravenous, at 26.7 mL/hr, Administer over 4 Hours, As needed, for phosphorus level 2.3 mg/dL or less., Starting on Wed06/12/24 at 2317, Administer over 4 hours via dedicated line (central line). If administered, recheck phosphorus level 4 hours after infusion complete. Infuse using central line access. Or sod phos di, mono-K phos mono (K-PHOS NEUTRAL) 250 mg tablet 2 tabletJump to med 2 tablet, oral, As needed, for phosphorus level 2.3 mg/dL or less., Starting on Wed06/12/24 at 2317, If dose administered, recheck phosphorus level 4 hours after last dose. Look-alike/sound-alike medication - verify indication for use. Give with a full glass of water. FOR RECORDS PERTAINING TO PATIENTS WHO ARE [...] BE BASED ON THE PRIMARY CLINICAL RECORDS. [facility] [employer] [facility]. provides no warranty or guarantee of the accuracy or completeness of information in this document.
== END 2025-02-02 11:02 | disposition home or self-care (01) ==
LOC: RAD 11:01
PROVIDERS: PCP Family Medicine; Visit Provider Family Medicine
DX: Z78.0 Asymptomatic menopausal state (principal); M85.80 Other specified disorders of bone density and structure, unspecified site
CPT/HCPCS: 77080

== ENCOUNTER 2025-04-19 10:05 | Outpatient (OUT) | payer MEDICARE, SELFPAY ==
--- OUTSIDE RECORDS SUMMARY | 2024-11-29 07:45 | XMS_ITS ---
Author Organization [facility] in [place] Address [address] [place] [address] Care Team Providers Care Merchandise Buyer Name Role Phone Kedar EDWARDS, Smith Primary Care Provider Valery vailaZbigniew Redman [facility] [phone] REASON FOR VISIT RT great toenail ingrown Encounters Encounter Location Date Provider Diagnosis [facility] (PODIATRY) [address] [place] [address] [place] [address] 11/29/2024 Zbigniew Jensen Plan Of Treatment No Information Progress Notes * Marah SILVA ADOB:[birth year] (75 yo F)Acc No.[id number]:11/29/2024 UNLOCKED PROGRESS NOTE Follow Up Patient: Marah LADD Provider: Binh Jensen DPM, MS :1950 A ge:74 Y S ex:Female Date:11/29/2024 Address:[address] [place] [address] Henri[place], [id number] Pcp:Smith Thacker MD Subjective: * Chief Complaints: * 1 . RT great toenail ingrown. * Medical History: Objective: * Vitals: Assessment: Plan: * Treatment: * * Electronic signature of Adolph Jensen DPM on 04/19/2025 at 10:10 AM EDT Sign off status: Pending Visit Status: N /S N/C (No Show/No Charge) * Provider: Binh Jensen DPM, MS Date: 0 11/29/2024 Generated for Romi jimenes/Jasen/Costa on: 0 04/19/2025 10:10 AM EDT
--- OUTSIDE RECORDS SUMMARY | 2025-04-18 14:30 | XMS_ITS | Encounter Summary ---
Author Organization [facility] Address [address] [place] [address] Care Team Providers Care Bone Drier Name Role Phone Smith Sheikh MD Primary Care Provider + Reason for Visit * Reason Comments COPD Pt presents for a br onchitis f/u. Pt states she is doing better. Pt states she has been using inhalers and oxygen at night. Encounter Details Date Type Department Care Team (Latest Contact Info) Description 04/18/2025 2:30 PM EDT Office Visit Smith Sheikh MD [address] [address] Smith Sheikh MD [address] [place] [address] Diabetes mellitus due to underlying condition with hyperosmolarity without coma, without long-term current use of insulin (HCC) (Primary Dx); Mild intermittent asthmatic bronchitis without complication; Morbid obesity due to excess calories (HCC); Acute exacerbation of chronic obstructive pulmonary disease (HCC); Subclinical iodine-deficiency hypothyroidism Social History Tobacco Use Types Packs/Day Years Used Date Smoking Tobacco: Never Smokeless Tobacco: Never Tobacco Cessation:Counseling Given: Not Answered Alcohol Use Standard Drinks/Week Comments No 0 (1 standard drink = 0.6 oz pur e alcohol) never drank Social Connection and Isolat ion Panel [NHANES] Answer Date Recorded In a typical week, how many times do you talk on the phone with family, friends, or neighbors? More than three times a week 02/05/2021 How often do you get togethe r with friends or relatives? Never 02/05/2021 How often do you attend chur ch or samaritan services? More than 4 times per year 02/05/2021 Do you belong to any clubs o r organizations such as synagogue groups, unions, fraternal or athletic groups, or school groups? Yes 02/05/2021 How often do you attend meet ings of the clubs or organizations you belong to? More than 4 times per year 02/05/2021 Are you , , di vorced, , never , or living with a partner? 02/05/2021 AUDIT-C Answer Date Recorded Q1: How often do you have a drink containing alcohol? Never 08/21/2024 Q2: How many drinks containi ng alcohol do you have on a typical day when you are drinking? Patient does not drink Q3: How often do you have si x or more drinks on one occasion? Never 08/21/2024 Overall Financial Resource Strain (CARDIA) Answe r Date Recorded How hard is it for you to pa y for the very basics like food, housing, medical care, and heating? Not hard at all 06/29/2024 PHQ-2 Answer Date Recorded PHQ-9 Total Score 0 03/07/2025 [facility] - Occupational Stress Questionnaire Answer Date Recorded Do you feel stress - tense, restless, nervous, or anxious, or unable to sleep at night because your mind is troubled all the time - these days? Not at all 02/05/2021 Exercise Vital Sign Answer Date Recorde d On average, how many days pe r week do you engage in moderate to strenuous exercise (like a brisk walk)? 3 days 08/21/2024 On average, how many minutes do you engage in exercise at this level? 10 min 08/21/2024 Hunger Vital Sign Answer Date Recorded Within the past 12 months, y ou worried that your food would run out before you got the money to buy more. Never true 06/29/20 24 Within the past 12 months, t he food you bought just didn't last and you didn't have money to get more. Never true 06/29/2024 PRAPARE - Transportation Answer Date Re corded Lack of Transportation (Medical) Not on file 06/29/2024 In the past 12 months, has l ack of transportation kept you from meetings, work, or from getting things needed for daily living? No 06/29/2024 Housing Stability Vital Sign Answer Judson e Recorded Unable to Pay for Housing in the Last Year Not o n file 06/29/2024 Number of Places Lived in the Last Year Not on f ile 06/29/2024 In the last 12 months, was t here a time when you did not have a steady place to sleep or slept in a detention (including now)? No 06/29/2024 Food Insecurity Answer Date Recorded Within the past 12 months, y ou worried that your food would run out before you got the money to buy more. 1 06/29/2024 Within the past 12 months, t he food you bought just didn't last and you didn't have money to get more. 1 06/29/2024 Interpersonal Safety Domain Source: IP Abuse Scr eening Answer Date Recorded Read-Only, Retired: Physical Abuse Denies 03/22/2024 Read-Only, Retired: Verbal Abuse Denies 03/22/2024 Read-Only, Retired: Emotional abuse Denies 03/22/2024 Read-Only, Retired: Financial Abuse Denies 03/22/2024 Read-Only, Retired: Sexual abuse Denies 03/22/2024 Education Answer Date Recorded What is the highest level of school you have completed or the highest degree you have received? 12th grade 02/05/2021 Comments No Sex and Gender Information Value Date Recorded Sex Assigned at Not on file Legal Sex Female 9:18 AM EST Gender Identity Not on file Sexual Orientation Not on file documented as of this encounter Last Filed Vital Signs Vital Sign Reading Time Taken Comments Blood Pressure 146/80 04/18/2025 2:37 PM EDT Pulse 85 04/18/2025 2:37 PM EDT Temperature 36.1 C (97 F) 04/18/2025 2:37 PM EDT Respiratory Rate 18 04/18/2025 2:37 PM EDT Oxygen Saturation 98% 04/18/2025 2:37 PM EDT Inhaled Oxygen Concentration - - Weight 80.7 kg (178 lb) 04/18/2025 2:37 PM EDT Height 152.4 cm (5') 04/18/2025 2:37 PM EDT Body Mass Index 34.76 04/18/2025 2:37 PM EDT documented in this encounter Progress Notes * Smith Sheikh MD - 04/18/2025 3:00 PM EDT Images from the original note were not included. [facility] [address] [facility] [address] Dept: [phone] Dept Marah Silva is a 75 y.o. female who presents today for Chief Complaint Patient presents with COPD Pt presents for a bronchitis f/u. Pt states she is doing better. Pt states she has been using inhalers and oxygen at night. and follow up of chronic medicalproblems: Patient Active Problem List Diagnosis DM (diabetes mellitus) (HCC) Hypothyroid Family history of colon cancer Diarrhea Tubular adenoma of colon History of colon polyps Chronic pain IBS (irritable bowel syndrome) Acquired absence of both cervix and uterus Acquired absence of other specified parts of digestive tract Heart failure, unspecified (HCC) Gastro-esophageal reflux disease without esophagitis Hypertensive heart disease with heart failure (HCC) MCFP (current) use of aspirin Neuralgia and neuritis, unspecified Spondylosis without myelopathy or radiculopathy, lumbar region 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) use of oral hypoglycemic drugs Other meterman (current) drug therapy Mononeuropathy of lower extremity Right hip pain Pain in wrist Primary osteoarthritis, right wrist Other muscle spasm Cervical spondylosis without myelopathy Trochanteric bursitis of right hip Seasonal allergic rhinitis Intercostal neuralgia Spinal stenosis of lumbar region with neurogenic claudication Lumbosacral spondylosis without myelopathy Pain in right toe(s) Gastritis medicamentosa Ingrown nail Neck pain Sensorineural hearing loss (SNHL) of both ears Strain of neck muscle Subjective pulsatile tinnitus of right ear Toothache Acute cough Acute exacerbation of chronic obstructive pulmonary disease (HCC) . Past Medical History: Diagnosis Date Anemia Arthritis COPD (chronic obstructive pulmonary disease) (HCC) Difficulty swallowing Dizziness GERD (gastroesophageal reflux disease) History of colon polyps HTN (hypertension) Hyperlipidemia Hypothyroid 05/19/2013 IBS (irritable bowel syndrome) Painful swallowing Sleep apnea c-pap Tinnitus of right ear Tubular adenoma of colon 08/19/2016 Type II or unspecified type diabetes mellitus without mention of complication, not stated as uncontrolled Past Surgical History: Procedure Laterality Date CATARACT REMOVAL WITH IMPLANT Bilateral CHOLECYSTECTOMY 2006 COLONOSCOPY 08/21/2016 loose anal sphincter, tubular adenoma rectum PT states she has not had colonoscopy COLONOSCOPY N/A 03/07/2021 COLONOSCOPY DIAGNOSTIC performed by Kory Nunez MD at [facility] ENDO FOOT SURGERY Left BONE SPUR REMOVAL HYSTERECTOMY (CERVIX STATUS UNKNOWN) 2008 Partial- still has ovaries MASTOID SURGERY age 22 TUMOR EXCISION age 40 inner ear with bone reconstruction UPPER GASTROINTESTINAL ENDOSCOPY N/A 03/07/2021 EGD BIOPSY performed by Kory Nunez MD at [facility] ENDO Family History Problem Relation Age of Onset Heart Disease Mother Heart Disease Father Arthritis Father Cancer Father tongue High Blood Pressure Father Diabetes Father Diabetes Sister Heart Disease Sister Stroke Sister Cancer Brother colon, prostate Social History Tobacco Use Smoking status: Never Smokeless tobacco: Never Substance Use Topics Alcohol use: No Alcohol/week: 0.0 standard drinks of alcohol Comment: never drank Current Outpatient Medications Medication Sig Dispense Refill albuterol sulfate HFA (PROVENTIL;VENTOLIN;PROAIR) 108 (90 Base) MCG/ACT inhaler Inhale 2 puffs intothe lungs every 6 hours as needed for Wheezing 1 each 1 fluticasone-salmeterol (ADVAIR) 250-50 MCG/ACT AEPB diskus inhaler Inhale 1 puff into the lungs 2 times daily 1 each 11 tiZANidine (ZANAFLEX) 2 MG tablet Take 1 tablet by mouth every 8 hours as needed (TAKE NEEDED FOR PAIN) 90 tablet 1 metFORMIN (GLUCOPHAGE) 500 MG tablet TAKE 1 TABLET EVERY MORNING AND 1 TABLET EVERY EVENING, TWICE A DAY 180 tablet 3 loratadine (CLARITIN) 10 MG tablet Take 1 tablet by mouth daily 90 tablet 0 sucralfate (CARAFATE) 1 GM tablet TAKE 1 TABLET FOUR TIMES A DAY 360 tablet 3 fluticasone (FLONASE) 50 MCG/ACT nasal spray USE 2 SPRAY(S) IN EACH NOSTRIL ONCE DAILY FOR 14 DAYS 16 g 1 atorvastatin (LIPITOR) 10 MG tablet TAKE 1 TABLET DAILY 90 tablet 3 pantoprazole (PROTONIX) 40 MG tablet TAKE 1 TABLET EVERY MORNING BEFORE BREAKFAST 90 tablet 3 ramipril (ALTACE) 10 MG capsule TAKE 1 CAPSULE DAILY 90 capsule 3 levothyroxine (SYNTHROID) 100 MCG tablet TAKE 1 TABLET DAILY 90 tablet 3 Ascorbic Acid (VITAMIN C PO) Take by mouth acetaminophen (TYLENOL) 500 MG tablet Take 1 tablet by mouth every 6 hours as needed for Pain Biotin 08190 MCG TABS Take by mouth amLODIPine (NORVASC) 2.5 MG tablet TAKE 1 TABLET DAILY 90 tablet 3 aspirin 81 MG chewable tablet Take by mouth olopatadine (PATANOL) 0.1 % ophthalmic solution EQ EYE ITCH RELIEF 0.025 % ophthalmic solution INSTILL 1 DROP INTO AFFECTED EYE TWICE DAILY FOR 7 DAYS mometasone (NASONEX) 50 MCG/ACT nasal spray 2 sprays by Nasal route daily 1 each 0 ferrous sulfate (IRON 325) 325 (65 Fe) MG tablet Take 1 tablet by mouth 2 times daily 90 tablet 1 blood glucose monitor strips Test 4 times a day for symptoms of irregular blood glucose. Dispense sufficient amount for indicated testing frequency 100 strip 3 blood glucose monitor strips Test 3 times a day & as needed for symptoms of irregular blood glucose. Dispense sufficient amount for indicated testing frequency plus additional to accommodate PRN testing needs. 100 strip 1 ipratropium 0.5 mg-albuterol 2.5 mg (DUONEB) 0.5-2.5 (3) MG/3ML SOLN nebulizer solution Inhale 3 mLs into the lungs every 4 hours 360 mL 1 meloxicam (MOBIC) 7.5 MG tablet Take 1 tablet by mouth once daily (Patient not taking: Reported on 03/21/2025) 90 tablet 0 ondansetron (ZOFRAN) 4 MG tablet Take 1 tablet by mouth 3 times daily as needed for Nausea or Vomiting (Patient not taking: Reported on 03/21/2025) 15 tablet 0 Respiratory Therapy Supplies (NEBULIZER/TUBING/MOUTHPIECE) KIT 1 kit by Does not apply route 4 times daily 1 kit 0 blood glucose test strips (ACCU-CHEK IZABEL) strip 100 each by In Vitro route 2 times daily As needed. 100 strip 3 Lancets Misc. (ACCU-CHEK MULTICLIX LANCET DEV) KIT 1 kit by Does not apply route 2 times daily 1 kit 0 No current facility-administered medications for this visit. Allergies Allergen Reactions Ciprofloxacin Morphine Pcn [Penicillins] Sulfamethoxazole-Trimethoprim Zyrtec [Cetirizine Hcl] Azithromycin Hives Bactrim [Sulfamethoxazole-Trimethoprim] Nausea And Vomiting Abdominal cramping, didn't clear infection Sulfa Antibiotics Other (See Comments) Sulfamethoxazole Nausea Only Trimethoprim Nausea Only Health Maintenance Topic Date Due Diabetic Alb to Cr ratio (uACR) test Never done DTaP/Tdap/Td vaccine (1 - Tdap) Never done Shingles vaccine (2 of 2) 09/17/2021 Pneumococcal 50+ years Vaccine (2 of 2 - PPSV23) 09/17/2021 Respiratory Syncytial Virus (RSV) or age 60 yrs+ (1 - 1-dose 75+ series) Never done Lipids 08/29/2023 GFR test (Diabetes, CKD 3-4, OR last GFR 15-59) 12/02/2023 COVID-19 Vaccine ( season) 2024 Annual Wellness Visit (Medicare Advantage) 11/22/2024 Flu vaccine (Season Ended) 2025 Depression Screen 03/07/2026 DEXA (modify frequency per FRAX score) Completed Hepatitis A vaccine Aged Out Hepatitis B vaccine Aged Out Hib vaccine Aged Out Polio vaccine Aged Out Meningococcal (ACWY) vaccine Aged Out Meningococcal B vaccine Aged Out Diabetic foot exam Discontinued A1C test (Diabetic or Prediabetic) Discontinued Diabetic retinal exam Discontinued Breast cancer screen Discontinued Colorectal Cancer Screen Discontinued Hepatitis C screen Discontinued HPI: HPIpt here for follow up, pt doing well, weight has increased, not on mounjaro at present ROS: Review of Systems Constitutional: Negative for activity change, appetite change, chills, diaphoresis, fatigue, fever and unexpected weight change. HENT: Negative for congestion, dental problem, drooling, ear discharge, ear pain, hearing loss, postnasal drip, rhinorrhea, sinus pressure, sore throat, tinnitus, trouble swallowing and voice change. Eyes: Negative for photophobia, pain, discharge, redness, itching and visual disturbance. Respiratory: Negative for apnea, cough, choking, chest tightness, shortness of breath, wheezing andstridor. Cardiovascular: Negative for chest pain, palpitations and leg swelling. Gastrointestinal: Negative for abdominal distention, abdominal pain, blood in stool, constipation, diarrhea, nausea and vomiting. Endocrine: Negative for cold intolerance, heat intolerance, polydipsia, polyphagia and polyuria. Musculoskeletal: Negative for arthralgias, back pain, gait problem, joint swelling, myalgias, neck pain and neck stiffness. Skin: Negative for color change and rash. Allergic/Immunologic: Negative for environmental allergies, food allergies and immunocompromised state. Neurological: Negative for dizziness, seizures, syncope, speech difficulty, weakness, light-headedness, numbness and headaches. Hematological: Negative for adenopathy. Does not bruise/bleed easily. Psychiatric/Behavioral: Negative for behavioral problems, decreased concentration, dysphoric mood, hallucinations, sleep disturbance and suicidal ideas. The patient is not nervous/anxious and is not hyperactive. Clinical staff notes reviewed. Physical Exam: Physical Exam Constitutional: General: She is not in acute distress. Appearance: She is well-developed. HENT: Head: Normocephalic and atraumatic. Eyes: General: Right eye: No discharge. Left eye: No discharge. Conjunctiva/sclera: Conjunctivae normal. Pupils: Pupils are equal, round, and reactive to light. Neck: Thyroid: No thyromegaly. Vascular: No JVD. Trachea: No tracheal deviation. Cardiovascular: Rate and Rhythm: Normal rate and regular rhythm. Heart sounds: Normal heart sounds. No murmur heard. No friction rub. Pulmonary: Effort: Pulmonary effort is normal. No respiratory distress. Breath sounds: Normal breath sounds. No wheezing or rales. Chest: Chest wall: No tenderness. Abdominal: General: Bowel sounds are normal. Palpations: Abdomen is soft. There is no mass. Tenderness: There is no abdominal tenderness. There is no rebound. Musculoskeletal: General: Normal range of motion. Cervical back: Normal range of motion and neck supple. Lymphadenopathy: Cervical: No cervical adenopathy. Skin: General: Skin is warm and dry. Neurological: Mental Status: She is alert and oriented to person, place, and time. Deep Tendon Reflexes: Reflexes are normal and symmetric. Psychiatric: Behavior: Behavior normal. Thought Content: Thought content normal. BP (!) 146/80 Pulse 85 Temp 97 ??F (36.1 ??C) Resp 18 Ht 1.524 m (5') Wt 80.7 kg (178 lb) LMP 05/19/1988 SpO2 98% BMI 34.76 kg/m?? Labs: Lab Results Component Value Date LABA1C 6.5 11/04/2024 Lab Results Component Value Date CHOL 149 01/22/2021 Lab Results Component Value Date HDL 84 (A) 08/29/2022 No components found for: LDLCALC Lab Results Component Value Date TRIG 49 01/22/2021 No results found for: CHOLHDL Lab Results Component Value Date WBC 7.1 11/06/2024 HGB 9.2 (L) 11/06/2024 HCT 30.1 (L) 11/06/2024 MCV 90.4 11/06/2024 PLT 311 11/06/2024 No results found for: INR , PROTIME Lab Results Component Value Date GLUCOSE 135 (H) 12/02/2022 CREATININE 0.53 12/02/2022 BUN 14 12/02/2022 NA 141 12/02/2022 K 4.3 12/02/2022 CL 105 12/02/2022 CO2 26 12/02/2022 Lab Results Component Value Date ALT 14 12/02/2022 AST 18 12/02/2022 GGT 10 03/21/2013 ALKPHOS 79 12/02/2022 BILITOT 0.5 12/02/2022 No results found for: LABPROT , LABALBU Lab Results Component Value Date TSH 0.08 (L) 12/02/2022 Medication List Accurate as of April 18, 2025 3:03 PM. If you have any questions, ask your nurse or doctor. CONTINUE taking these medications * Accu-Chek Izabel strip Generic drug: blood glucose test strips 100 each by In Vitro route 2 times daily As needed. * blood glucose test strips Test 3 times a day & as needed for symptoms of irregular blood glucose. Dispense sufficient amount for indicated testing frequency plus additional to accommodate PRN testing needs. * blood glucose test strips Test 4 times a day for symptoms of irregular blood glucose. Dispense sufficient amount for indicated testing frequency Accu-Chek Multiclix Lancet Dev Kit 1 kit by Does not apply route 2 times daily acetaminophen 500 MG tablet Commonly known as: TYLENOL albuterol sulfate HFA 108 (90 Base) MCG/ACT inhaler Commonly known as: PROVENTIL;VENTOLIN;PROAIR Inhale 2 puffs into the lungs every 6 hours as needed for Wheezing amLODIPine 2.5 MG tablet Commonly known as: NORVASC TAKE 1 TABLET DAILY aspirin 81 MG chewable tablet atorvastatin 10 MG tablet Commonly known as: LIPITOR TAKE 1 TABLET DAILY Biotin 18545 MCG Tabs EQ Eye Itch Relief 0.025 % ophthalmic solution Generic drug: ketotifen ferrous sulfate 325 (65 Fe) MG tablet Commonly known as: IRON 325 Take 1 tablet by mouth 2 times daily fluticasone 50 MCG/ACT nasal spray Commonly known as: FLONASE USE 2 SPRAY(S) IN EACH NOSTRIL ONCE DAILY FOR 14 DAYS fluticasone-salmeterol 250-50 MCG/ACT Aepb diskus inhaler Commonly known as: ADVAIR Inhale 1 puff into the lungs 2 times daily ipratropium 0.5 mg-albuterol 2.5 mg 0.5-2.5 (3) MG/3ML Soln nebulizer solution Commonly known as: DUONEB Inhale 3 mLs into the lungs every 4 hours levothyroxine 100 MCG tablet Commonly known as: SYNTHROID TAKE 1 TABLET DAILY loratadine 10 MG tablet Commonly known as: CLARITIN Take 1 tablet by mouth daily meloxicam 7.5 MG tablet Commonly known as: MOBIC Take 1 tablet by mouth once daily metFORMIN 500 MG tablet Commonly known as: GLUCOPHAGE TAKE 1 TABLET EVERY MORNING AND 1 TABLET EVERY EVENING, TWICE A DAY mometasone 50 MCG/ACT nasal spray Commonly known as: Nasonex 2 sprays by Nasal route daily Nebulizer/Tubing/Mouthpiece Kit 1 kit by Does not apply route 4 times daily olopatadine 0.1 % ophthalmic solution Commonly known as: PATANOL ondansetron 4 MG tablet Commonly known as: ZOFRAN Take 1 tablet by mouth 3 times daily as needed for Nausea or Vomiting pantoprazole 40 MG tablet Commonly known as: PROTONIX TAKE 1 TABLET EVERY MORNING BEFORE BREAKFAST ramipril 10 MG capsule Commonly known as: ALTACE TAKE 1 CAPSULE DAILY sucralfate 1 GM tablet Commonly known as: CARAFATE TAKE 1 TABLET FOUR TIMES A DAY tiZANidine 2 MG tablet Commonly known as: ZANAFLEX Take 1 tablet by mouth every 8 hours as needed (TAKE NEEDED FOR PAIN) VITAMIN C PO * This list has 3 medication(s) that are the same as other medications prescribed for you. Read thedirections carefully, and ask your doctor or other care provider to review them with you. Where to Get Your Medications These medications were sent to [facility], [place] [address] [phone] F [phone] [address] [facility] [address] albuterol sulfate HFA 108 (90 Base) MCG/ACT inhaler fluticasone-salmeterol 250-50 MCG/ACT Aepb diskus inhaler Assessment and Plan: Marah was seen today for copd. Diagnoses and all orders for this visit: Diabetes mellitus due to underlying condition with hyperosmolarity without coma, without long-term current use of insulin ([facility]) - Hemoglobin A1C; Future Mild intermittent asthmatic bronchitis without complication Morbid obesity due to excess calories ([facility]) Other orders - albuterol sulfate HFA (PROVENTIL;VENTOLIN;PROAIR) 108 (90 Base) MCG/ACT inhaler; Inhale 2 puffs into the lungs every 6 hours as needed for Wheezing - fluticasone-salmeterol (ADVAIR) 250-50 MCG/ACT AEPB diskus inhaler; Inhale 1 puff into the lungs 2 times daily 1. Marah received counseling onthe following healthy behaviors: nutrition, exercise, and medicationadherence 2. Prior labs and health maintenance reviewed. 3. Discussed use, benefit, and side effects of prescribed medications. Barriers to medication compliance addressed. All her questions were answered. Pt voiced understanding and agreed to treatment plan. Marah will continue current medications,diet and exercise. Patient given educational materials - see patient instructions documented in this encounter Plan of Treatment Upcoming Encounters Date Type Department Care Team (Late st Contact Info) Description 04/23/2025 11:10 AM EDT Office Visit [facility] [place], [facility] [address] [facility], [address] [place] [address] Apolinar Mejia MD [address] [facility] [facility] [address] [facility] [address] [place] [address] Lumbar-follow up w/MRI Lumbar@ [place] 04/19/2025, patient will bring in disc 07/18/2025 3:00 PM EDT Office Visit Smith Sheikh MD [facility] [address] [place] [address] Smith Sheikh MD [address] [place] [address] 3 MONTH CHECK Scheduled Orders Name Type Priority Associated Diagnoses Orde r Schedule Hemoglobin A1C Lab Routine Diabetes mellitus due to underlying condition with hyperosmolarity without coma, without long-term current use of insulin (HCC) Expected: 04/18/2025, Expires: 04/18/2026 documented as of this encounter Visit Diagnoses Diagnosis Diabetes mellitus due to underlying condition with hyperosmolarity without coma, without long-term current use of insulin (HCC)- Primary Mild intermittent asthmatic bronchitis without complication Morbid obesity due to excess calories (HCC) Acute exacerbation of chronic obstructive pulmonary disease (HCC) Obstructive chronic bronchitis with exacerbation Subclinical iodine-deficiency hypothyroidism Other specified acquired hypothyroidism documented in this encounter Additional Health Concerns Assessment Noted Time A fall risk assessment has been complete d for the patient 03/07/2025 3:00 PM EDT documented as of this encounter Care Teams Bone Drier Relationship Specialty Start Date End Date Smith Sheikh MD [address] [place] [address] PCP - General Family Medicine 05/18/13 documented as of this encounter
--- OUTSIDE RECORDS SUMMARY | 2025-04-19 10:09 | XMS_ITS | Encounter Summary ---
Author Organization [facility]fer [facility] Address [address] [place] [address] Care Team Providers Care Hemotherapist Name Role Phone Smith Thacker MD Primary Care Provider + Reason for Visit * Reason Comments Medication Refill Encounter Details Date Type Department Care Team (Late st Contact Info) Description 03/26/2020 Refill Smith Thacker MD [address] [phone] Smith Thacker MD [address] [place] [address] Medication Refill Social History Tobacco Use Types Packs/Day Years Used Date Smoking Tobacco: Never Smokeless Tobacco: Never Alcohol Use Standard Drinks/Week Comments No 0 (1 standard drink = 0.6 oz pur e alcohol) never drank PHQ-2 Answer Date Recorded PHQ-2 Score 0 02/22/2019 Comments No Sex and Gender Information Value Date Recorded Sex Assigned at Not on file Legal Sex Female 9:18 AM EST Gender Identity Not on file Sexual Orientation Not on file documented as of this encounter Plan of Treatment Upcoming Encounters Date Type Department Care Team (Late st Contact Info) Description 04/23/2025 11:10 AM EDT Office Visit [facility] Neuroscience [place], [facility] Neurosurgery [address] [place] [address], [address] [place] [address] Apolinar Mejia MD [address] [address] Lumbar-follow up w/MRI [email or web address]@ [place] 04/19/2025, patient will bring in disc 07/18/2025 3:00 PM EDT Office Visit [facility] [address] [place] [phone] Smith Thacker MD [address] [place] [address] 3 MONTH CHECK documented as of this encounter Visit Diagnoses Not on filedocumented in this encounter Additional Health Concerns Infection Onset Date Last Indicated Resolved Time COVID-19 (Rule Out) 03/03/2021 03/03/2021 03/04/20 21 6:02 AM EDT Assessment Noted Time A fall risk assessment has been complete d for the patient 01/24/2020 12:03 PM EST documented as of this encounter Care Teams Hemotherapist Relationship Specialty Start Date End Date Smith Thacker MD [address] [place] [address] PCP - General Family Medicine 05/18/13 documented as of this encounter
--- OUTSIDE RECORDS SUMMARY | 2025-04-19 10:09 | XMS_ITS | Encounter Summary ---
Author Organization [facility] Address [address] [place] [address] Care Team Providers Care Quality System Manager Name Role Phone Smith Thacker MD Primary Care Provider + Reason for Visit * Reason Comments Medication Refill Encounter Details Date Type Department Care Team (Late st Contact Info) Description 10/17/2021 Refill Smith Thacker MD [address] [phone] Smith Thacker MD [address] [place], [place] [phone] Medication Refill Social History Tobacco Use Types [...] often do you attend chur ch or gnosticist services? More than 4 times per year 02/05/2021 Do you belong to any clubs o r organizations such as denominational groups, unions, fraternal or athletic groups, or school groups? Yes 02/05/2021 How often do you attend meet ings of the clubs or organizations you belong to? More than 4 times per year 02/05/2021 Are you , , di vorced, , never , or living with a partner? 02/05/2021 Overall Financial Resource Strain (CARDIA) Answe r Date Recorded How hard is it for you to pa y for the very basics like food, housing, medical care, and heating? Not hard at all 02/05/2021 PHQ-2 Answer Date Recorded PHQ-9 Total Score 0 10/03/2021 [facility] - Occupational Stress Questionnaire Answer Date Recorded [...] to strenuous exercise (like a brisk walk)? 0 days 02/05/2021 On average, how many minutes do you engage in exercise at this level? 0 min 02/05/2021 Hunger Vital Sign Answer Date Recorded Within the past 12 months, y ou worried that your food would run out before you got the money to buy more. Never true 02/06/20 21 Within the past 12 months, t he food you bought just didn't last and you didn't have money to get more. Never true 02/05/2021 PRAPARE - Transportation Answer Date Re corded In the past 12 months, has l ack of transportation kept you from medical appointments or from getting medications? No 01/20 In the past 12 months, has l ack of transportation kept you from meetings, work, or from getting things needed for daily living? No 02/05/2021 Education Answer Date Recorded What is the highest level of school you have completed or the highest degree you have received? 12th grade 02/05/2021 Comments No Sex and Gender Information Value Date Recorded Sex Assigned at Not on file Legal Sex Female 9:18 AM EST Gender Identity Not on file Sexual Orientation Not on file COVID-19 Exposure Response Date Recorded In the last month, have you been in contact with someone who was confirmed or suspected to have Coronavirus / COVID-19? No / Unsure 10/03/2021 11:15 AM EST documented as of this encounter Plan of Treatment Upcoming Encounters Date Type Department Care Team (Late st Contact Info) Description 04/23/2025 11:10 AM EDT Office Visit [facility] Neuroscience [place], [facility] [address] [facility], [address] [place] [address] Apolinar Mejia MD [address] [facility] [address] [place] [address] Lumbar-follow up w/MRI [email or web address]@ [email or web address] 04/19/2025, patient will bring in disc 07/18/2025 3:00 PM EDT Office Visit Smith Thacker MD [address] [phone] Smith Thacker MD [address] [place] [address] 3 MONTH CHECK documented as of this encounter Visit Diagnoses Not on filedocumented in this encounter Additional Health Concerns Assessment Noted Time A fall risk assessment has been complete d for the patient 10/03/2021 11:15 AM EST documented as of this encounter Care Teams Quality System Manager Relationship Specialty Start Date End Date Smith Thacker MD [address] [place] [address] PCP - General Family Medicine 05/18/13 documented as of this encounter
--- OUTSIDE RECORDS SUMMARY | 2025-04-19 10:09 | XMS_ITS | Encounter Summary ---
Author Organization [facility] Address [address] [place] [address] Care Team Providers Care Dynamotor Repairer Name Role Phone Smith Thacker MD Primary Care Provider + Encounter Details Date Type Department Care Team (Late st Contact Info) Description 09/14/2023 Orders Only [facility] Neuroscience [place], [facility] [address] [place] [address], [address] [place] [address] Social History Tobacco Use Types Packs/Day Years [...] often do you attend chur ch or adventist services? More than 4 times per year 02/05/2021 Do you belong to any clubs o r organizations such as quaker groups, unions, fraternal or athletic groups, or [...] care, and heating? Not hard at all 04/07/2023 PHQ-2 Answer Date Recorded PHQ-9 Total Score 0 03/29/2023 [facility] - Occupational Stress Questionnaire Answer Date Recorded [...] the money to buy more. Never true 04/07/20 Within the past 12 months, t he food you bought just didn't last and you didn't have money to get more. Never true 04/07/2023 PRAPARE - Transportation Answer Date Re corded Lack of Transportation (Medical) Not on file 04/07/2023 In the past 12 months, has l ack of transportation kept you from meetings, work, or from getting things needed for daily living? No 04/07/2023 Housing Stability Vital Sign Answer Judson e Recorded Unable to Pay for Housing in the Last Year Not o n file 04/07/2023 Number of Places Lived in the Last Year Not on f ile 04/07/2023 In the last 12 months, was t here a time when you did not have a steady place to sleep or slept in a long-term (including now)? No 04/07/2023 Food Insecurity Answer Date Recorded Within the past 12 months, y ou worried that your food would run out before you got the money to buy more. 1 04/07/2023 Within the past 12 months, t he food you bought just didn't last and you didn't have money to get more. 1 04/07/2023 Education Answer Date Recorded What is the [...] Description 04/23/2025 11:10 AM EDT Office Visit [facility] [address] [place] [address], [address] [place] [address] Apolinar Mejia MD [address] [facility] [address] [place] [address] Lumbar-follow up w/MRI [email or web address]@ [facility] 04/19/2025, patient will bring in disc 07/18/2025 3:00 PM EDT Office Visit Smith Thacker MD [facility] [address] [place] [address] Smith Thacker MD [address] [place] [address] 3 MONTH CHECK documented as of this encounter Procedures Procedure Name Priority Date/Time Associated Diagnosis Comments MRI LUMBAR SPINE WO CONTRAST Routine 06/16/2023 documented in this encounter Results * MRI LUMBAR SPINE WO CONTRAST (06/16/2023) Anatomical Region Laterality Modality T-spine, L-spine, Pelvis Other us Pcp Nurse IMG MRI ORDERABLES Final Result documented in this encounter Visit Diagnoses Not on filedocumented in this encounter Additional Health Concerns Assessment Noted Time A fall risk assessment has been complete d for the patient 03/29/2023 3:21 PM EDT documented as of this encounter Care Teams Dynamotor Repairer Relationship Specialty Start Date End Date Smith Thacker MD [address] [place] [address] PCP - General Family Medicine 05/18/13 documented as of this encounter
--- OUTSIDE RECORDS SUMMARY | 2025-04-19 10:09 | XMS_ITS | Encounter Summary ---
Author Organization Jose [facility] Address [address] [place] [address] Care Team Providers Care Sap Bw Bi Developer Name Role Phone Smith Thacker MD Primary Care Provider + Reason for Visit * Reason Onset Date Comments Medication Refill 04/09/2025 Encounter Details Date Type Department Care Team (Late st Contact Info) Description 04/09/2025 Refill Smith Thacker MD [address] [phone] Smith Thacker MD [address] [place], [place] [phone] Medication Refill Social History Tobacco Use Types [...] any clubs o r organizations such as anglican groups, unions, fraternal or athletic groups, or [...] Date Recorded PHQ-9 Total Score 0 03/07/2025 [facility] - [...] place to sleep or slept in a snf (including now)? No 06/29/2024 Food Insecurity Answer [...] 11:10 AM EDT Office Visit [facility], [facility] [address] [place] [address], [address] [place] [address] Apolinar Mejia MD [address] [place] [address] [address] [place] [address] Lumbar-follow up w/MRI [email or web address]@ [email or web address] 04/19/2025, patient will bring in disc 07/18/2025 3:00 PM EDT Office Visit Smith Thacker MD [address] [phone] Smith Thacker MD [address] [place] [address] 3 MONTH CHECK documented as of this encounter Visit Diagnoses Not on filedocumented in this encounter Additional Health Concerns Assessment Noted Time A fall risk assessment has been complete d for the patient 03/07/2025 3:00 PM EDT documented as of this encounter Care Teams Sap Bw Bi Developer Relationship Specialty Start Date End Date Smith Thacker MD [address] [place] [address] PCP - General Family Medicine 05/18/13 documented as of this encounter
--- OUTSIDE RECORDS SUMMARY | 2025-04-19 10:09 | XMS_ITS | Encounter Summary ---
Author Organization [facility] Schafer [facility] Address [address] [place] [address] Care Team Providers Care Automatic Corn Grinder Operator Name Role Phone Smith Thacker MD Primary Care Provider + Reason for Visit * Reason Comments Medication Refill Encounter Details Date Type Department Care Team (Late st Contact Info) Description 05/01/2019 Refill Smith Thacker MD [facility] [address] [place] [phone] Smith Thacker MD [address] [place] [address] Medication Refill Social History Tobacco Use Types [...] Description 04/23/2025 11:10 AM EDT Office Visit [facility] Neuroscience [place], [place] [facility]surgery [address] [place] [address], [address] [place] [address] Apolinar Mejia MD [address] [address] Lumbar-follow up w/MRI [email or web address]@ [facility] 04/19/2025, patient will bring in disc 07/18/2025 3:00 PM EDT Office Visit [facility] [address] [place] [address] Smith Thacker MD [address] [place] [address] 3 MONTH CHECK documented as of this encounter Visit Diagnoses Not on filedocumented in this encounter Additional Health Concerns Infection Onset Date Last Indicated Resolved Time COVID-19 (Rule Out) 03/03/2021 03/03/2021 03/04/20 21 6:02 AM EDT Assessment Noted Time A fall risk assessment has been complete d for the patient 03/22/2019 1:49 PM EDT documented as of this encounter Care Teams Automatic Corn Grinder Operator Relationship Specialty Start Date End Date Smith Thacker MD [address] [place] [address] PCP - General Family Medicine 05/18/13 documented as of this encounter
--- OUTSIDE RECORDS SUMMARY | 2025-04-19 10:09 | XMS_ITS | Encounter Summary ---
Author Organization [facility] Schafer [facility] Address [address] [place] [address] Care Team Providers Care Casino Controller Name Role Phone Smith Thacker MD Primary Care Provider + Reason for Visit * Reason Comments Medication Refill Encounter Details Date Type Department Care Team (Late st Contact Info) Description 04/19/2020 Refill Smith Thacker MD [address] [phone] Smith Thacker MD [address] [place] [address] Medication Refill Social History Tobacco Use Types [...] Description 04/23/2025 11:10 AM EDT Office Visit [facility] Neuroscience [place], [facility] Neurosurgery [address] [place] [address], [address] [place] [address] Apolinar Mejia MD [address] [address] Lumbar-follow up w/MRI [email or web address]@ [facility] 04/19/2025, patient will bring in disc 07/18/2025 3:00 PM EDT Office Visit [facility] [address] [place] [phone] Smith Thacker MD [address] [place] [address] 3 MONTH CHECK documented as of this encounter Visit Diagnoses Not on filedocumented in this encounter Additional Health Concerns Infection Onset Date Last Indicated Resolved Time COVID-19 (Rule Out) 03/03/2021 03/03/2021 03/04/20 21 6:02 AM EDT Assessment Noted Time A fall risk assessment has been complete d for the patient 01/24/2020 12:03 PM EST documented as of this encounter Care Teams Casino Controller Relationship Specialty Start Date End Date Smith Thacker MD [address] [place] [address] PCP - General Family Medicine 05/18/13 documented as of this encounter
--- OUTSIDE RECORDS SUMMARY | 2025-04-19 10:09 | XMS_ITS | Encounter Summary ---
Author Organization Jose [facility]ash [facility] Address [address] [place] [address] Care Team Providers Care Film Technician Name Role Phone Smith Thacker MD Primary Care Provider + Reason for Visit * Reason Onset Date Comments Medication Refill 04/11/2025 Encounter Details Date Type Department Care Team (Late st Contact Info) Description 04/11/[address] [facility] [address] [place] [address] Smith Thacker MD [address] [place] [address] Medication Refill Social History Tobacco Use Types [...] often do you attend chur ch or zoroastrianism services? More than 4 times per year 02/05/2021 Do you belong to any clubs o r organizations such as tenriism groups, unions, fraternal or athletic groups, or [...] Date Recorded PHQ-9 Total Score 0 03/07/2025 [facility] - [...] place to sleep or slept in a jail (including now)? No 06/29/2024 Food Insecurity Answer [...] Description 04/23/2025 11:10 AM EDT [facility] Visit [facility] Neurosurgery [address] [place] [address], [address] [place] [address] Apolinar Mejia MD [address] [place] [address] [address] [place] [phone] Lumbar-follow up w/MRI [email or web address]@ [place] 04/19/2025, patient will bring in disc 07/18/2025 3:00 PM EDT Office Visit Smith Thacker MD [address] [phone] Smith Thacker MD [address] [place] [address] 3 MONTH CHECK documented as of this encounter Visit Diagnoses Diagnosis Spinal stenosis of lumbar region, unspecified whether neurogenic claudication present- Primary Chronic midline low back pain without sciatica Chronic pain due to trauma documented in this encounter Additional Health Concerns Assessment Noted Time A fall risk assessment has been complete d for the patient 03/07/2025 3:00 PM EDT documented as of this encounter Care Teams Film Technician Relationship Specialty Start Date End Date Smith Thacker MD [address] [place] [address] PCP - General Family Medicine 05/18/13 documented as of this encounter
--- OUTSIDE RECORDS SUMMARY | 2025-04-19 10:09 | XMS_ITS | Encounter Summary ---
Author Organization Jose [facility]ash [facility] Address [address] [place] [address] Care Team Providers Care Farm Mechanic Name Role Phone Smith Thacker MD Primary Care Provider + Reason for Visit * Reason Comments Medication Refill Encounter Details Date Type Department Care Team (Late st Contact Info) Description 04/11/2025 Refill Smith Thacker MD [facility] [address] [place] [phone] Smith Thacker MD [address] [place], [place] [phone] Medication Refill Social History Tobacco Use Types [...] often do you attend chur ch or restorationist services? More than 4 times per year 02/05/2021 Do you belong to any clubs o r organizations such as faith groups, unions, fraternal or athletic groups, or [...] Date Recorded PHQ-9 Total Score 0 03/07/2025 [facility] Occupat ional Health - Occupational Stress [...] place to sleep or slept in a mcfp (including now)? No 06/29/2024 Food Insecurity Answer [...] Description 04/23/2025 11:10 AM EDT Office Visit [facility] Neuroscience [place], [facility] Neurosurgery [address] [place] [address], [address] [place] [address] Apolinar Mejia MD [address] [place] [address] [place], [place] [phone] Lumbar-follow up w/MRI [email or web address]@ [place] 04/19/2025, patient will bring in disc 07/18/2025 3:00 PM EDT Office Visit Smith Thacker MD [address] [phone] Smith Thacker MD [address] [place] [address] 3 MONTH CHECK documented as of this encounter Visit Diagnoses Not on filedocumented in this encounter Additional Health Concerns Assessment Noted Time A fall risk assessment has been complete d for the patient 03/07/2025 3:00 PM EDT documented as of this encounter Care Teams Farm Mechanic Relationship Specialty Start Date End Date Smith Thacker MD [address] [place] [address] PCP - General Family Medicine 05/18/13 documented as of this encounter
--- OUTSIDE RECORDS SUMMARY | 2025-04-19 10:09 | XMS_ITS | Encounter Summary ---
Author Organization Jose [facility] Address [address] [place] [address] Care Team Providers Care Ms Sql Server Developer Name Role Phone Smith Thacker MD Primary Care Provider + Encounter Details Date Type Department Care Team ([facility] st Contact Info) Description 01/05/[address] [address] Smith Thacker MD [address] [place] [address] Social History Tobacco Use Types Packs/Day Years [...] often do you attend chur ch or anabaptist services? More than 4 times per year 02/05/2021 Do you belong to any clubs o r organizations such as episcopal groups, unions, fraternal or athletic groups, or [...] Answer Date Recorded PHQ-9 Total Score 0 12/13/2023 [facility] ional Health - Occupational Stress [...] money to buy more. Never true 04/07/20 23 Within the past 12 months, t he [...] place to sleep or slept in a alf (including now)? No 04/07/2023 Food Insecurity Answer [...] Description 04/23/2025 11:10 AM EDT Office Visit [facility] Neuroscience [place], [facility] Neurosurgery [address] [place] [address], [address] [place] [address] Apolinar Mejia MD [address] [facility] [address] [place] [address] Lumbar-follow up w/MRI [email or web address]@ [place] 04/19/2025, patient will bring in disc 07/18/2025 3:00 PM EDT Office Visit Simth Thacker MD [facility] [address] [place] [address] Smith Thacker MD [address] [place] [address] 3 MONTH CHECK documented as of this encounter Visit Diagnoses Not on filedocumented in this encounter Additional Health Concerns Assessment Noted Time A fall risk assessment has been complete d for the patient 12/13/2023 2:19 PM EST documented as of this encounter Care Teams Ms Sql Server Developer Relationship Specialty Start Date End Date Smith Thacker MD [address] [place] [address] PCP - General Family Medicine 05/18/13 documented as of this encounter
--- OUTSIDE RECORDS SUMMARY | 2025-04-19 10:09 | XMS_ITS | Encounter Summary ---
Author Organization Jose Schafer [facility] Address [address] [place] [address] Care Team Providers Care Moveman Name Role Phone Smith Thacker MD Primary Care Provider + Reason for Visit * Reason Comments Medication Refill Encounter Details Date Type Department Care Team (Late st Contact Info) Description 10/12/2019 Refill Smith Thacker MD [facility] [address] [place] [phone] Smith Thacker MD [address] [place] [address] Medication Refill Social History Tobacco Use Types [...] Description 04/23/2025 11:10 AM EDT Office Visit [facility] Neuroscience [place], [facility] Neurosurgery [address] [place] [address], [address] [place] [address] Apolinar Mejia MD [address] [address] Lumbar-follow up w/MRI Lumbar@ [facility] 04/19/2025, patient will bring in disc 07/18/2025 3:00 PM EDT Office Visit [facility] [address] [place] [address] Smith Thacker MD [address] [place] [address] 3 MONTH CHECK documented as of this encounter Visit Diagnoses Not on filedocumented in this encounter Additional Health Concerns Infection Onset Date Last Indicated Resolved Time COVID-19 (Rule Out) 03/03/2021 03/03/2021 03/04/20 21 6:02 AM EDT Assessment Noted Time A fall risk assessment has been complete d for the patient 09/20/2019 11:50 AM EDT documented as of this encounter Care Teams Moveman Relationship Specialty Start Date End Date Smith Thacker MD [address] [place] [address] PCP - General Family Medicine 05/18/13 documented as of this encounter
--- OUTSIDE RECORDS SUMMARY | 2025-04-19 10:09 | XMS_ITS | Encounter Summary ---
Author Organization [facility] Address [address] [place] [address] Care Team Providers Care Tar Heater Name Role Phone Smith Thacker MD Primary Care Provider + Encounter Details Date Type Department Care Team (Late st Contact Info) Description 08/27/2021 Abstract Smith Thacker MD [address] [phone] Smith Thacker MD [address] [place], [place] [phone] Social History Tobacco Use Types Packs/Day Years [...] often do you attend chur ch or orthodox services? More than 4 times per year 02/05/2021 Do you belong to any clubs o r organizations such as taoist groups, unions, fraternal or athletic groups, or [...] Answer Date Recorded PHQ-9 Total Score 0 08/29/2021 [facility] of Occupat ional [facility] - Occupational Stress Questionnaire Answer Date Recorded [...] have Coronavirus / COVID-19? No / Unsure 08/29/2021 11:37 AM EDT documented as of this encounter Plan of Treatment Upcoming Encounters Date Type Department Care Team (Late st Contact Info) Description 04/23/2025 11:10 AM EDT Office Visit [facility] Neuroscience [place], [facility] [address], [address] [place] [address] Apolinar Mejia MD [address] [place], [place] [phone] [email or web address], patient will bring in disc 07/18/2025 3:00 PM EDT Office Visit Smith Thacker MD [address] [phone] Smith Thacker MD [address] [place] [address] 3 MONTH CHECK documented as of this encounter Visit Diagnoses Not on filedocumented in this encounter Additional Health Concerns Assessment Noted Time A fall risk assessment has been complete d for the patient 06/16/2021 3:35 PM EDT documented as of this encounter Care Teams Tar Heater Relationship Specialty Start Date End Date Smith Thacker MD [address] [place] [address] PCP - General Family Medicine 05/18/13 documented as of this encounter
--- OUTSIDE RECORDS SUMMARY | 2025-04-19 10:09 | XMS_ITS | Encounter Summary ---
Author Organization [facility] Address [address] [place] [address] Care Team Providers Care Biology Lecturer Name Role Phone Smith Thacker MD Primary Care Provider + Reason for Visit * Reason Comments Medication Refill Encounter Details Date Type Department Care Team (Late st Contact Info) Description 10/21/2019 Refill Smith Thacker MD [facility] [address] [place] [phone] Smith Thacker MD [address] [place] [address] Medication Refill Social History Tobacco Use Types [...] Description 04/23/2025 11:10 AM EDT Office Visit [facility] Neuroscience [place], [facility] Neurosurgery [address] [place] [address], [address] [place] [address] Apolinar Mejia MD [address] [address] Lumbar-follow up w/MRI [email or web address]@ [facility] 04/19/2025, patient will bring in disc 07/18/2025 3:00 PM EDT Office Visit [facility] [address] [place] [address] Smith Thacker MD [address] [place] [address] 3 MONTH CHECK documented as of this encounter Visit Diagnoses Not on filedocumented in this encounter Additional Health Concerns Infection Onset Date Last Indicated Resolved Time COVID-19 (Rule Out) 03/03/2021 03/03/2021 03/04/20 21 6:02 AM EDT Assessment Noted Time A fall risk assessment has been complete d for the patient 09/20/2019 11:50 AM EDT documented as of this encounter Care Teams Biology Lecturer Relationship Specialty Start Date End Date Smith Thacker MD [address] [place] [address] PCP - General Family Medicine 05/18/13 documented as of this encounter
--- OUTSIDE RECORDS SUMMARY | 2025-04-19 10:09 | XMS_ITS | Encounter Summary ---
Author Organization [facility] Address [address] [place] [address] Phone Care Team Providers Care Behavioral Assistant Name Role Phone Smith Thacker MD Primary Care Provider + Encounter Details Date Type Department Care Team (Late st Contact Info) Description 09/17/2021 Orders Only [facility] [address] [place] [address] Conversion, Onbase Social History Tobacco Use Types Packs/Day Years Used Date Smoking Tobacco: Never Assessed Comments Unknown Sex and Gender Information Value Date Recorded Sex Assigned at Not on file Legal Sex Female 1:55 AM EST Gender Identity Not on file Sexual Orientation Not on file documented as of this encounter Plan of Treatment Scheduled Orders Name Type Priority Associated Diagnoses Orde r Schedule OUTSIDE LAB SCAN Lab Ordered: 09/17/2021 documented as of this encounter Visit Diagnoses Not on filedocumented in this encounter Care Teams Behavioral Assistant Relationship Specialty Start Date End Date Smith Thacker MD [address] [place] [address] PCP - General Family Medicine 07/26/24 documented as of this encounter
--- OUTSIDE RECORDS SUMMARY | 2025-04-19 10:09 | XMS_ITS | Clinical Summary ---
Author Organization [facility] Address [address] [place] [address] Phone Care Team Providers Care Gymnastics Coach Or Instructor Name Role Phone Smith Thacker MD Primary Care Provider + Allergies Active Allergy Reactions Criticality Noted Date Comments Cetirizine Other 12/20/2008 Ciprofloxacin GI Upset,Other,Unknown 05/19/2013 Morphine Shortness of breath,Unknown High 12/20/2008 Penicillins Rash Low 12/20/2008 Sulfa (Sulfonamide Antibiotics) GI Upset,Nausea Only Low 12/01/2021 Sulfamethoxazole-Trimeth oprim Nausea And Vomiting,Nausea Only,GI Upset Low 12/20/2008 Abdominal cramping, didn't clear infection Medications ascorbate calcium, vitamin C, 500 mg tablet 1 tablet once daily. 4 Active loratadine (Claritin) 10 mg tablet Take 1 tablet (10 mg) by mouth. 1 tablet 3 times a week 4 Active levothyroxine (Synthroid, Levoxyl) 100 mcg tablet Take 1 tablet (100 mcg) by mouth once daily. 4 Active LYCOPENE ORAL Take 1 tablet by mouth once daily. Active metFORMIN (Glucophage) 500 mg tablet 1 tablet (500 mg) 2 times daily (morning and late afternoon). 4 Active pantoprazole (ProtoNix) 40 mg EC tablet Take 1 tablet (40 mg) by mouth once daily in the morning. Take before meals. 3 Active ramipril (Altace) 10 mg capsule Take 1 capsule (10 mg) by mouth once daily. 4 Active sucralfate (Carafate) 1 gram tablet Take 1 tablet (1 g) by mouth 4 times a day. 4 Active coenzyme Q-10 200 mg capsule Take 1 capsule (200 mg) by mouth once daily. Active tiZANidine (Zanaflex) 2 mg tablet Take 1 tablet (2 mg) by mouth twice a day. 4 Active aspirin 81 mg EC tablet Take 1 tablet (81 mg) by mouth once daily. Active atorvastatin (Lipitor) 10 mg tablet Take 1 tablet (10 mg) by mouth once daily. 3 Active biotin 10 mg tablet Take 1 tablet (10 mg) by mouth once daily. Active cyanocobalamin (Vitamin B-12) 100 mcg tablet Take 1 tablet (100 mcg) by mouth once daily. Active fluticasone propion-salmetero L (Advair Diskus) 250-50 mcg/dose diskus inhaler USE 1 INHALATION TWICE A DAY 4 Active ipratropium-albut Zoie (Duo-Neb) 0.5-2.5 mg/3 mL nebulizer solution Inhale 4 times a day. Active fluticasone (Flonase) 50 mcg/actuation nasal spray USE 2 SPRAY(S) IN EACH NOSTRIL ONCE DAILY FOR 14 DAYS 4 Active ketotifen (Zaditor) 0.025 % (0.035 %) ophthalmic solution INSTILL 1 DROP INTO AFFECTED EYE TWICE DAILY FOR 7 DAYS 3 Active meloxicam (Mobic) 7.5 mg tablet Take 1 tablet (7.5 mg) by mouth once daily. 4 Active albuterol 90 mcg/actuation inhaler Inhale 2 puffs every 6 hours if needed. 3 Active ferrous sulfate 325 (65 Fe) MG EC tablet Take by mouth. 1 tablet 3 times a week Active acetaminophen (Tylenol) 500 mg tablet Take 1 tablet (500 mg) by mouth every 6 hours if needed. Active amLODIPine (Norvasc) 5 mg tabletIndications :Essential hypertension Take 1 tablet (5 mg) by mouth once daily. 90 tablet 3 4 07/26/20 Active Active Problems Problem Noted Date Diagnosed Date BMI 34.0-34.9,adult 07/26/2024 Never smoked tobacco 07/26/2024 RBBB 07/26/2024 Essential hypertension 07/26/2024 Type 2 diabetes mellitus 07/26/2024 History of COVID-19 07/26/2024 Chest pain 07/26/2024 Family History Medical History Relation Name Comments Diabetes Brother Diabetes Father Heart attack Father Heart disease Mother Ulcers Mother Diabetes Sister Heart disease Sister Relation Name Status Comments Brother Father Mother Sister Social History Tobacco Use Types Packs/Day Years Used Date Smoking Tobacco: Never Smokeless Tobacco: Never Tobacco Cessation:Counseling Given: Not Answered Alcohol Use Standard Drinks/Week Comments Never 0 (1 standard drink = 0.6 oz pur e alcohol) Comments Unknown Sex and Gender Information Value Date Recorded Sex Assigned at Not on file Legal Sex Female 1:55 AM EST Gender Identity Not on file Sexual Orientation Not on file Last Filed Vital Signs Vital Sign Reading Time Taken Comments Blood Pressure 152/64 07/26/2024 10:19 AM EDT Pulse 70 07/26/2024 9:28 AM EDT Temperature - - Respiratory Rate - - Oxygen Saturation - - Inhaled Oxygen Concentration - - Weight 81.2 kg (179 lb) 07/26/2024 9:27 AM EDT Height 152.4 cm (5') 07/26/2024 9:27 AM EDT Body Mass Index 34.96 07/26/2024 9:27 AM EDT Plan of Treatment Health Maintenance Due Date Last Done Comments Creatinine Level 1948 Diabetes: Hemoglobin A1C 1948 Diabetes: Urine Protein Screening 1948 Echocardiogram 1948 Lipid Panel 1950 Medicare Annual Wellness Vis it (AWV) 1948 Potassium Level 1948 TSH Level 1948 Diabetes: Retinopathy Screening 1958 Hepatitis C Screening 1966 DTaP/Tdap/Td Vaccines (1 - Tdap) 1970 Pneumococcal Vaccine (2 of 2 - PPSV23) 09/17/2021 07/23/2021 Zoster Vaccines (2 of 2) 09/17/2021 07/23/2021 RSV High Risk: (Elderly (60+ ) or Population) (1 - 1-dose 75+ series) 2023 COVID-19 Vaccine (4 - 2023-2 5 season) 2024 09/26/2021, 02/20/2021, 01/23/2021 Influenza Vaccine (Season Ended) 2025 08/28/2022, 10/26/2020 Bone Density Scan Completed 04/15/2016 Mammogram Discontinued 11/24/2021, 11/24/2021, 04/07/2021 HIB Vaccines Aged Out No longer eligi ble based on patient's age to complete this topic HPV Vaccines Aged Out No longer eligi ble based on patient's age to complete this topic Hepatitis A Vaccines Aged Out No long er eligible based on patient's age to complete this topic Hepatitis B Vaccines Aged Out No long er eligible based on patient's age to complete this topic IPV Vaccines Aged Out No longer eligi ble based on patient's age to complete this topic Meningococcal Vaccine Aged Out No amber greg eligible based on patient's age to complete this topic Rotavirus Vaccines Aged Out No longer eligible based on patient's age to complete this topic Insurance [employer] Ad[employer] Care Teams Gymnastics Coach Or Instructor Relationship Specialty Start Date End Date Smith Thacker MD [address] [place] [address] PCP - General Family Medicine 07/26/24
--- OUTSIDE RECORDS SUMMARY | 2025-04-19 10:09 | XMS_ITS | Encounter Summary ---
Author Organization [facility] Address [address] [place] [address] Care Team Providers Care Medical Information Specialist Name Role Phone Smith Thacker MD Primary Care Provider + Reason for Visit * Reason Comments Medication Refill Encounter Details Date Type Department Care Team (Late st Contact Info) Description 07/19/2019 Refill Smith Thacker MD [facility] [address] [place] [phone] Smith Thacker MD [address] [place] [address] Medication Refill Social History Tobacco Use Types [...] Description 04/23/2025 11:10 AM EDT Office Visit [facility] Neuroscience [place], [facility] Neurosurgery [address] [place] [address], [address] [place] [address] Apolinar Mejia MD [address] [address] Lumbar-follow up w/MRI [email or web address]@ [facility] 04/19/2025, patient will bring in disc 07/18/2025 3:00 PM EDT Office Visit [facility] [address] [place] [address] Smith Thacker MD [address] [place] [address] 3 MONTH CHECK documented as of this encounter Visit Diagnoses Not on filedocumented in this encounter Additional Health Concerns Infection Onset Date Last Indicated Resolved Time COVID-19 (Rule Out) 03/03/2021 03/03/2021 03/04/20 21 6:02 AM EDT Assessment Noted Time A fall risk assessment has been complete d for the patient 07/10/2019 2:37 PM EDT documented as of this encounter Care Teams Medical Information Specialist Relationship Specialty Start Date End Date Smith Thacker MD [address] [place] [address] PCP - General Family Medicine 05/18/13 documented as of this encounter
--- OUTSIDE RECORDS SUMMARY | 2025-04-19 10:09 | XMS_ITS | Encounter Summary ---
Author Organization [facility] Address [address] [employer] [address] Care Team Providers Care Client Service Coordinator Name Role Phone Smith Thacker MD Primary Care Provider + Reason for Visit * Reason Comments Medication Refill Encounter Details Date Type Department Care Team ([facility] st Contact Info) Description 09/15/2021 Refill [facility] [address] [place] [address] Nancy Nj MD [address] [place] [phone] Medication Refill Social History Tobacco Use Types [...] often do you attend chur ch or bahai services? More than 4 times per year 02/05/2021 Do you belong to any clubs o r organizations such as yazidi groups, unions, fraternal or athletic groups, or [...] Date Recorded PHQ-9 Total Score 0 08/29/2021 [facility] of Occupat ional Health - [...] have Coronavirus / COVID-19? No / Unsure 09/01/2021 1:57 PM EDT documented as of this encounter Plan of Treatment Upcoming Encounters Date Type Department Care Team (Late st Contact Info) Description 04/23/2025 11:10 AM EDT Office Visit [facility] Neuroscience [place], [facility] [address], [address] [place] [address] Apolinar Mejia MD [address] [place], [place] [phone] [email or web address] 04/[facility], patient will bring in disc 07/18/2025 3:00 PM EDT Office Visit Smith Thacker MD [address] [phone] Smith Thacker MD [address] [place] [address] 3 MONTH CHECK documented as of this encounter Visit Diagnoses Not on filedocumented in this encounter Additional Health Concerns Assessment Noted Time A fall risk assessment has been complete d for the patient 08/29/2021 11:37 AM EDT documented as of this encounter Care Teams Client Service Coordinator Relationship Specialty Start Date End Date Smith Thacker MD [address] [place] [address] PCP - General Family Medicine 05/18/13 documented as of this encounter
--- OUTSIDE RECORDS SUMMARY | 2025-04-19 10:09 | XMS_ITS | Encounter Summary ---
Author Organization [facility] Address [address] [place] [address] Care Team Providers Care C Developer Name Role Phone Smith Thacker MD Primary Care Provider + Reason for Visit * Reason Onset Date Comments Medication Refill Medication Refill 08/11/2021 Encounter Details Date Type Department Care Team (Late st Contact Info) Description 08/11/2021 Refill Smith Thacker MD [address] [phone] Smith Thacker MD [address] [place], [place] [phone] Medication Refill; Medication Refill Social History Tobacco Use Types [...] often do you attend chur ch or taoist services? More than 4 times per year 02/05/2021 Do you belong to any clubs o r organizations such as congregation groups, unions, fraternal or athletic groups, or [...] Answer Date Recorded PHQ-9 Total Score 0 06/16/2021 [facility] of Occupat ional [facility] - Occupational Stress Questionnaire Answer Date Recorded [...] Description 04/23/2025 11:10 AM EDT Office Visit [facility] Neuroscience [place], [facility] [address], [address] [place] [address] Apolinar Mejia MD [address] [place] [address] Lumbar-follow up w/MRI [email or web address]@ [facility] 04/19/2025, patient will bring in disc 07/18/2025 3:00 PM EDT Office Visit Smith Thacker MD [address] [phone] Smith Thacker MD [address] [place] [address] 3 MONTH CHECK documented as of this encounter Visit Diagnoses Diagnosis Other chronic pain- Primary documented in this encounter Additional Health Concerns Assessment Noted Time A fall risk assessment has been complete d for the patient 06/16/2021 3:35 PM EDT documented as of this encounter Care Teams C Developer Relationship Specialty Start Date End Date Smith Thacker MD [address] [place] [address] PCP - General Family Medicine 05/18/13 documented as of this encounter
--- OUTSIDE RECORDS SUMMARY | 2025-04-19 10:09 | XMS_ITS | Encounter Summary ---
Author Organization [facility] Address [address] [place] [address] Care Team Providers Care Police Reserves Commander Name Role Phone Smith Thacker MD Primary Care Provider + Encounter Details Date Type Department Care Team (Late st Contact Info) Description 08/06/2021 Abstract Smith Thacker MD [address] [phone] Smith Thacker MD [address] [place], [place] [phone] Social History Tobacco Use Types Packs/Day Years [...] often do you attend chur ch or yazidi services? More than 4 times per year [...] Date Recorded PHQ-9 Total Score 0 06/16/2021 [facility] of Occupat ional [facility] - Occupational Stress Questionnaire Answer Date [...] 11:10 AM EDT Office Visit [facility], [facility] Neurosurgery [address] [place] [address], [address] [place] [address] Apolinar Mejia MD [address] [facility] [address] [place] [address] [email or web address] 04/19/[facility]25, patient will bring in disc 07/18/2025 3:00 PM EDT Office Visit Smith Thacker MD [facility] [address] [place] [address] Smith Thacker MD [address] [place] [address] 3 MONTH CHECK documented as of this encounter Visit Diagnoses Not on filedocumented in this encounter Additional Health Concerns Assessment Noted Time A fall risk assessment has been complete d for the patient 06/16/2021 3:35 PM EDT documented as of this encounter Care Teams Police Reserves Commander Relationship Specialty Start Date End Date Smith Thacker MD [address] [place] [address] PCP - General Family Medicine 05/18/13 documented as of this encounter
--- OUTSIDE RECORDS SUMMARY | 2025-04-19 10:09 | XMS_ITS | Encounter Summary ---
Author Organization [facility] Address [address] [place] [address] Care Team Providers Care Faucet Polisher Name Role Phone Smith Thacker MD Primary Care Provider + Reason for Visit * Reason Comments Medication Refill Encounter Details Date Type Department Care Team (Late st Contact Info) Description 08/07/2019 Refill Smith Thacker MD [facility] [address] [place] [phone] Smith Thacker MD [address] [place] [address] Medication Refill Social History Tobacco Use Types [...] Description 04/23/2025 11:10 AM EDT Office Visit [facility] Neuroscience [place], [facility]surgery [address] [place] [address], [address] [place] [address] Apolinar Mejia MD [address] [address] Lumbar-follow up w/MRI [email or web address]@ [facility] 04/19/2025, patient will bring in disc 07/18/2025 3:00 PM EDT Office Visit [facility] [address] [place] [address] Smith Thacker MD [address] [place] [address] 3 MONTH CHECK documented as of this encounter Visit Diagnoses Not on filedocumented in this encounter Additional Health Concerns Infection Onset Date Last Indicated Resolved Time COVID-19 (Rule Out) 03/03/2021 03/03/2021 03/04/20 21 6:02 AM EDT Assessment Noted Time A fall risk assessment has been complete d for the patient 08/04/2019 12:06 PM EDT documented as of this encounter Care Teams Faucet Polisher Relationship Specialty Start Date End Date Smith Thacker MD [address] [place] [address] PCP - General Family Medicine 05/18/13 documented as of this encounter
--- OUTSIDE RECORDS SUMMARY | 2025-04-19 10:09 | XMS_ITS | Encounter Summary ---
Author Organization [facility] Address [address] [place] [address] Phone Care Team Providers Care Director Of Events Name Role Phone Smith Thacker MD Primary Care Provider + Encounter Details Date Type Department Care Team (Late st Contact Info) Description 10/28/2021 Orders Only [facility] [address] [place] [address] Conversion, Onbase Social History Tobacco Use Types [...] r Schedule OUTSIDE LAB SCAN Lab Ordered: 10/28/2021 documented as of this encounter Visit Diagnoses Not on filedocumented in this encounter Care Teams Director Of Events Relationship Specialty Start Date End Date Smith Thacker MD [address] [place] [address] PCP - General Family Medicine 07/26/24 documented as of this encounter
--- OUTSIDE RECORDS SUMMARY | 2025-04-19 10:09 | XMS_ITS | Encounter Summary ---
Author Organization [facility] Address [address] [place] [address] Care Team Providers Care Dealer Account Manager Name Role Phone Smith Thacker MD Primary Care Provider + Encounter Details Date Type Department Care Team (Late st Contact Info) Description 08/08/2021 Abstract Smith Thacker MD [address] [phone] Smith Thacker MD [address] [place], [place] [phone] Social History Tobacco Use Types Packs/Day Years [...] often do you attend chur ch or temple services? More than 4 times per year [...] Date Recorded PHQ-9 Total Score 0 06/16/2021 [facility] of Occupat ional [facility] - Occupational Stress Questionnaire Answer Date [...] Description 04/23/2025 11:10 AM EDT Office Visit [facility] Neurosurgery [address] [place] [address], [address] [place] [address] Apolinar Mejia MD [address] [facility] [address] [place] [address] [email or web address] 04/19/[facility], patient will bring in disc 07/18/2025 3:00 PM EDT Office Visit Smith Thacker MD [facility] [address] [place] [address] Smith Thacker MD [address] [place] [address] 3 MONTH CHECK documented as of this encounter Visit Diagnoses Not on filedocumented in this encounter Additional Health Concerns Assessment Noted Time A fall risk assessment has been complete d for the patient 06/16/2021 3:35 PM EDT documented as of this encounter Care Teams Dealer Account Manager Relationship Specialty Start Date End Date Smith Thacker MD [address] [place] [address] PCP - General Family Medicine 05/18/13 documented as of this encounter
--- OUTSIDE RECORDS SUMMARY | 2025-04-19 10:09 | XMS_ITS | Encounter Summary ---
Author Organization [facility] Address [address] [place] [address] Care Team Providers Care Flight Superintendent Name Role Phone Smith Thacker MD Primary Care Provider + Reason for Visit * Reason Comments New Med Request Encounter Details Date Type Department Care Team (Late st Contact Info) Description 04/11/2025 Refill Smith Thacker MD [address] [phone] Smith Thacker MD [address] [place], [place] [phone] New Med Request Social History Tobacco Use Types Packs/Day Years [...] often do you attend chur ch or druze services? More than 4 times per year 02/05/2021 Do you belong to any clubs o r organizations such as mu-ism groups, unions, fraternal or athletic groups, or [...] Date Recorded PHQ-9 Total Score 0 03/07/2025 [facility] - Occupational Stress [...] place to sleep or slept in a correction (including now)? No 06/29/2024 Food Insecurity Answer [...] AM EDT Office Visit [facility] Neuroscience [place], [facility] Neurosurgery [address] [place] [address], [address] [place] [address] Apolinar Mejia MD [address] [place] [address] [place], [place] [id number] Lumbar-follow up w/MRI Lumbar@ [place] 04/19/2025, patient will bring in disc 07/18/2025 3:00 PM EDT Office Visit Smith Thacker MD [address] [phone] Smith Thacker MD [address] [place] [address] 3 MONTH CHECK documented as of this encounter Visit Diagnoses Not on filedocumented in this encounter Additional Health Concerns Assessment Noted Time A fall risk assessment has been complete d for the patient 03/07/2025 3:00 PM EDT documented as of this encounter Care Teams Flight Superintendent Relationship Specialty Start Date End Date Smith Thacker MD [address] [place] [address] PCP - General Family Medicine 05/18/13 documented as of this encounter
--- OUTSIDE RECORDS SUMMARY | 2025-04-19 10:10 | XMS_ITS | Encounter Summary ---
Author Organization [facility] Address [address] [place] [address] Care Team Providers Care Hvac Technician Name Role Phone Smith Tahcker MD Primary Care Provider + Reason for Visit * Reason Comments Medication Refill Encounter Details Date Type Department Care Team (Late st Contact Info) Description 03/26/2016 Refill Smith Thacker MD [facility] [address] [place] [address] Smith Thacker MD [address] [place] [address] Medication Refill Social History Tobacco Use Types Packs/Day Years Used Date Smoking Tobacco: Never Alcohol Use Standard Drinks/Week Comments No 0 (1 standard drink = 0.6 oz pur e alcohol) never drank Comments Unknown Sex and Gender Information Value Date Recorded Sex Assigned at Not on file Legal Sex Female 9:18 AM EST Gender Identity Not on file Sexual Orientation Not on file documented as of this encounter Plan of Treatment Upcoming Encounters Date Type Department Care Team (Late st Contact Info) Description 04/23/2025 11:10 AM EDT Office Visit [facility] Neuroscience [place], [facility] Neurosurgery [address] [facility], [address] [place] [address] Apolinar Mejia MD [address] [facility] [address] [place] [address] Lumbar-follow up w/MRI Lumbar@ [facility] 04/19/2025, patient will bring in disc 07/18/2025 3:00 PM EDT Office Visit [facility] [address] [place] [phone] Smith Thacker MD [address] [place] [address] 3 MONTH CHECK documented as of this encounter Visit Diagnoses Not on filedocumented in this encounter Additional Health Concerns Infection Onset Date Last Indicated Resolved Time COVID-19 (Rule Out) 03/03/2021 03/03/2021 03/04/20 21 6:02 AM EDT Assessment Noted Time A fall risk assessment has been complete d for the patient 01/31/2016 3:39 PM EST documented as of this encounter Care Teams Hvac Technician Relationship Specialty Start Date End Date Smith Thacker MD [address] [place] [address] PCP - General Family Medicine 05/18/13 documented as of this encounter
--- OUTSIDE RECORDS SUMMARY | 2025-04-19 10:10 | XMS_ITS | Encounter Summary ---
Author Organization [facility] Address [address] [place] [address] Care Team Providers Care Bpm Solution Architect Name Role Phone Smith Thacker MD Primary Care Provider + Reason for Visit * Reason Comments Medication Refill Encounter Details Date Type Department Care Team (Late st Contact Info) Description 08/12/2015 Refill Smith Thacker MD [facility] 128 [place] [address] Smith Thacker MD 128 [place] [address] Medication Refill Social History Tobacco Use Types [...] Description 04/23/2025 11:10 AM EDT Office Visit [facility] Neuroscience [place], [facility] Neurosurgery [address] [facility], [address] [place] [address] Apolinar Mejia MD [address] [facility] [address] [place] [address] Lumbar-follow up w/MRI Lumbar@ [facility] 04/19/2025, patient will bring in disc 07/18/2025 3:00 PM EDT Office Visit [facility] [address] [place] [phone] Smith Thacker MD [address] [place] [address] 3 MONTH CHECK documented as of this encounter Visit Diagnoses Not on filedocumented in this encounter Additional Health Concerns Infection Onset Date Last Indicated Resolved Time COVID-19 (Rule Out) 03/03/2021 03/03/2021 03/04/20 21 6:02 AM EDT Assessment Noted Time A fall risk assessment has been complete d for the patient 11/19/2014 2:34 PM EST documented as of this encounter Care Teams Bpm Solution Architect Relationship Specialty Start Date End Date Smith Thacker MD [address] [place] [address] PCP - General Family Medicine 05/18/13 documented as of this encounter
--- OUTSIDE RECORDS SUMMARY | 2025-04-19 10:10 | XMS_ITS | Encounter Summary ---
Author Organization [facility] Address [address] [place] [address] Care Team Providers Care Box Strapper Name Role Phone Smith Thacker MD Primary Care Provider + Reason for Visit * Reason Comments Medication Refill Encounter Details Date Type Department Care Team (Late st Contact Info) Description 10/07/2018 Ref[address] [facility] [address] [place] [address] Smith Thacker MD [address] [place] [address] Medication Refill Social History Tobacco Use Types Packs/Day Years Used Date Smoking Tobacco: Never Smokeless Tobacco: Never Alcohol Use Standard Drinks/Week Comments No 0 (1 standard drink = 0.6 oz pur e alcohol) never drank Comments No Sex and Gender Information Value Date Recorded Sex Assigned at Not on file Legal Sex Female 9:18 AM EST Gender Identity Not on file Sexual Orientation Not on file documented as of this encounter Plan of Treatment Upcoming Encounters Date Type Department Care Team (Late st Contact Info) Description 04/23/2025 11:10 AM EDT Office Visit [facility] Neuroscience [place], [facility] Neurosurgery [address] [place] [address], [address] [place] [address] Apolinar Mejia MD [address] [facility] [address] [place] [address] Lumbar-follow up w/MRI Lumbar@ [facility] 04/19/2025, patient will bring in disc 07/18/2025 3:00 PM EDT Office Visit Smith Thacker MD [address] [phone] Smith Thacker MD [address] [place] [address] 3 MONTH CHECK documented as of this encounter Visit Diagnoses Not on filedocumented in this encounter Additional Health Concerns Infection Onset Date Last Indicated Resolved Time COVID-19 (Rule Out) 03/03/2021 03/03/2021 03/04/20 21 6:02 AM EDT Assessment Noted Time A fall risk assessment has been complete d for the patient 08/17/2018 2:32 PM EDT documented as of this encounter Care Teams Box Strapper Relationship Specialty Start Date End Date Smith Thacker MD [address] [place] [address] PCP - General Family Medicine 05/18/13 documented as of this encounter
--- OUTSIDE RECORDS SUMMARY | 2025-04-19 10:10 | XMS_ITS | Encounter Summary ---
Author Organization [facility] Address [address] [place] [address] Care Team Providers Care Microsoft Crm Developer Name Role Phone Smith Thacker MD Primary Care Provider + Reason for Visit * Reason Comments Medication Refill Encounter Details Date Type Department Care Team (Late st Contact Info) Description 06/28/2018 Refill Smith Thacker MD [facility] 128 [place] [address] Smith Thacker MD 128 [place] [address] Medication Refill Social History Tobacco Use Types [...] Description 04/23/2025 11:10 AM EDT Office Visit [facility] Neuroscience [place], [facility] Neurosurgery [address] [place] [address], [address] [place] [address] Apolinar Mejia MD [address] [facility] [address] [place] [address] Lumbar-follow up w/MRI Lumbar@ [facility] 04/19/2025, patient will bring in disc 07/18/2025 3:00 PM EDT Office Visit Smith Thacker MD [address] [phone] Smith Thacker MD [address] [place] [address] 3 MONTH CHECK documented as of this encounter Visit Diagnoses Not on filedocumented in this encounter Additional Health Concerns Infection Onset Date Last Indicated Resolved Time COVID-19 (Rule Out) 03/03/2021 03/03/2021 03/04/20 21 6:02 AM EDT Assessment Noted Time A fall risk assessment has been complete d for the patient 05/27/2018 11:26 AM EDT documented as of this encounter Care Teams Microsoft Crm Developer Relationship Specialty Start Date End Date Smith Thacker MD [address] [place] [address] PCP - General Family Medicine 05/18/13 documented as of this encounter
--- OUTSIDE RECORDS SUMMARY | 2025-04-19 10:10 | XMS_ITS | Encounter Summary ---
Author Organization [facility] Address [address] [place] [address] Care Team Providers Care Shingler Name Role Phone Smith Thacker MD Primary Care Provider + Reason for Visit * Reason Comments Medication Refill Encounter Details Date Type Department Care Team (Late st Contact Info) Description 06/11/2018 Refill Smith Thacker MD [facility] 128 [place] [address] Smith Thacker MD [address] [place] [address] Medication Refill Social History Tobacco Use Types [...] Description 04/23/2025 11:10 AM EDT Office Visit [facility] Neuroscience [place], [facility] Neurosurgery [address] [place] [address], [address] [place] [address] Apolinar Mejia MD [address] [facility] [address] [place] [address] Lumbar-follow up w/MRI Lumbar@ [facility] 04/19/2025, patient will bring in disc 07/18/2025 3:00 PM EDT Office Visit Smith Thacker MD [address] [phone] Smith Thacker MD [address] [place] [address] 3 MONTH CHECK documented as of this encounter Visit Diagnoses Not on filedocumented in this encounter Additional Health Concerns Infection Onset Date Last Indicated Resolved Time COVID-19 (Rule Out) 03/03/2021 03/03/2021 03/04/20 21 6:02 AM EDT Assessment Noted Time A fall risk assessment has been complete d for the patient 05/27/2018 11:26 AM EDT documented as of this encounter Care Teams Shingler Relationship Specialty Start Date End Date Smith Thacker MD [address] [place] [address] PCP - General Family Medicine 05/18/13 documented as of this encounter
--- OUTSIDE RECORDS SUMMARY | 2025-04-19 10:10 | XMS_ITS | Encounter Summary ---
Author Organization [facility] Address [address] [place] [address] Care Team Providers Care Field Inspector Name Role Phone Smith Thacker MD Primary Care Provider + Reason for Visit * Reason Comments Medication Refill Encounter Details Date Type Department Care Team (Late st Contact Info) Description 11/18/2017 Refill Smith Thacker MD [facility] 128 [place] [address] Smith Thacker MD [address] [place] [address] Medication Refill Social History Tobacco Use Types [...] Description 04/23/2025 11:10 AM EDT Office Visit [facility] Neuroscience [place], [facility] Neurosurgery [address] [place] [address], [address] [place] [address] Apolinar Mejia MD [address] [facility] [address] [place] [address] Lumbar-follow up w/MRI Lumbar@ [facility] 04/19/2025, patient will bring in disc 07/18/2025 3:00 PM EDT Office Visit Smith Thacker MD [address] [phone] Smith Thacker MD [address] [place] [address] 3 MONTH CHECK documented as of this encounter Visit Diagnoses Not on filedocumented in this encounter Additional Health Concerns Infection Onset Date Last Indicated Resolved Time COVID-19 (Rule Out) 03/03/2021 03/03/2021 03/04/20 21 6:02 AM EDT Assessment Noted Time A fall risk assessment has been complete d for the patient 10/27/2017 12:13 PM EST documented as of this encounter Care Teams Field Inspector Relationship Specialty Start Date End Date Smith Thacker MD [address] [place] [address] PCP - General Family Medicine 05/18/13 documented as of this encounter
--- OUTSIDE RECORDS SUMMARY | 2025-04-19 10:10 | XMS_ITS | Encounter Summary ---
Author Organization [facility] Address [address] [place] [address] Care Team Providers Care Teacher Of The Hearing Impaired Name Role Phone Smith Thacker MD Primary Care Provider + Reason for Visit * Reason Comments Medication Refill Encounter Details Date Type Department Care Team (Late st Contact Info) Description 02/27/2018 Refill Smith Thacker MD [facility] [address] [place] [address] Smith Thacker MD [address] [place] [address] Medication Refill Social History Tobacco Use Types [...] EDT Office Visit [facility] Neuroscience [place], [facility] Neurosurgery [address] [place] [address], [address] [place] [address] Apolinar Mejia MD [address] [facility] [address] [place] [address] Lumbar-follow up w/MRI Lumbar@ [facility] 04/19/2025, patient will bring in disc 07/18/2025 3:00 PM EDT Office Visit [facility] [address] [place] [phone] Smith Thacker MD [address] [place] [address] 3 MONTH CHECK documented as of this encounter Visit Diagnoses Not on filedocumented in this encounter Additional Health Concerns Infection Onset Date Last Indicated Resolved Time COVID-19 (Rule Out) 03/03/2021 03/03/2021 03/04/20 6:02 AM EDT Assessment Noted Time A fall risk assessment has been complete d for the patient 01/26/2018 12:20 PM EST documented as of this encounter Care Teams Teacher Of The Hearing Impaired Relationship Specialty Start Date End Date Smith Tahcker MD [address] [place] [phone] PCP - General Family Medicine 05/18/13 documented as of this encounter
--- OUTSIDE RECORDS SUMMARY | 2025-04-19 10:10 | XMS_ITS | Clinical Summary ---
Author Organization [facility] Address [address] [place], [place] [id number] Care Team Providers Care Calender Machine Operator Name Role Phone Smith Thacker MD Primary Care Provi israel Allergies Active Allergy Reactions Criticality Noted Date Comments Sulfamethoxazole-Trimethoprim 2008 Ciprofloxacin Unknown 05/19/2013 Ibuprofen Unknown 12/07/2017 Morphine 12/20/2008 Penicillins 12/20/2008 Cetirizine Hcl 12/20/2008 Medications ramipril(ALTACE 10 MG TAB) Take by mouth. 0 9 Active metformin hcl(GLUCOPHAGE 500 MG TAB) Take by mouth. 0 9 Active tramadol hcl(ULTRAM 50 MG TAB) Take by mouth. 0 9 Active fluticasone/sarthak meterol(ADVAIR DISKUS 250 MCG-50 MCG/DOSE FOR INHALATION) 0 9 Active mometasone furoate(NASONEX 50 MCG/ACTUATION SPRAY) 0 9 Active desloratadine(C LARINEX 5 MG TAB) Take by mouth. 0 9 Active levothyroxine (SYNTHROID) 100 mcg tablet Take 1 tablet by mouth once daily. 0 4 Active rosuvastatin (CRESTOR) 20 mg tablet Take 1 tablet by mouth daily at bedtime. 0 4 Active MV with Ysj-Sprosafo-Em tein 0.4 mg-300 mcg- 250 mcg tab Take by mouth. Activ e amLODIPine (NORVASC) 2.5 mg tablet Take 2.5 mg by mouth once daily. Active atorvastatin (LIPITOR) 10 mg tablet Take 10 mg by mouth once daily. Active esomeprazole (NEXIUM) 40 mg capsule Take 40 mg by mouth DAILY (6 AM). Active BABY ASPIRIN ORAL Take by mouth. Activ e biotin 1 mg cap Take by mouth. Active fexofenadine (TRIPP) 180 mg tablet Take 180 mg by mouth once daily. Active cyanocobalamin, vitamin B-12, (B-12 DOTS ORAL) Take by mouth. Activ e acetaminophen (TYLENOL ORAL) Take 650 mg by mouth as needed. Active sucralfate (CARAFATE) 1 gram tablet Take 1 g by mouth four times daily. 0 Active albuterol sulfate (PROAIR DIGIHALER) 90 mcg/actuation aebs Inhale as instructed. Active pantoprazole DR (PROTONIX) 40 mg tablet Take 40 mg by mouth once daily. 0 Active ipratropium-alb uterol (DUONEB) 0.5 mg-3 mg(2.5 mg base)/3 mL nebu Inhale 3 mL as instructed every 4 hours. 9 Active furosemide (LASIX) 20 mg tablet Take 20 mg by mouth once daily. 0 Active acetaminophen-c odeine (TYLENOL-COD #3) 300-30 mg per tablet 0 Active celecoxib (CELEBREX) 100 mg capsule Take 100 mg by mouth. Active celecoxib (CELEBREX) 100 mg capsule 0 Active diclofenac potassium (CATAFLAM) 50 mg tablet 0 Active amLODIPine (NORVASC) 2.5 mg tablet TAKE 1 TABLET DAILY 0 Active aspirin, enteric coated (ASPIRIN, ENTERIC COATED) 81 mg EC tablet Take 81 mg by mouth. Active atorvastatin (LIPITOR) 10 mg tablet TAKE 1 TABLET DAILY 0 Active fluticasone-sarthak meterol (ADVAIR, WIXELA) 250-50 mcg/dose inhaler USE 1 INHALATION TWICE A DAY 0 Active levothyroxine (SYNTHROID) 100 mcg tablet 1 tab qd 0 Active SYNTHROID 88 mcg tablet 0 Active metFORMIN (GLUCOPHAGE) 1,000 mg tablet Take 1,000 mg by mouth. Active metFORMIN (GLUCOPHAGE) 500 mg tablet TAKE 2 TABLETS EVERY MORNING AND TAKE 1 TABLET EVERY EVENING 0 Active ramipril (ALTACE) 10 mg capsule TAKE 1 CAPSULE DAILY 0 Active ramipril (ALTACE) 10 mg capsule 0 Active traMADol (ULTRAM) 50 mg tablet Take 50 mg by mouth. Active Coenzyme Q10 200 mg cap Take 1 capsule by mouth once daily. 1 Active olopatadine (PATANOL) 0.1 % ophthalmic solution INSTILL ONE DROP TO BOTH EYES TWICE A DAY 5 mL 5 4 Active loratadine (CLARITIN) 10 mg tablet Take 1 tablet by mouth every afternoon. 4 Active meloxicam (MOBIC) 7.5 mg tablet 4 Active COMP-AIR NEBULIZER COMPRESSOR 4 Active NEOMYCIN-POLYMY APOLLO-DEXAMETH 3.5 MG/ML-10,000 UNIT/ML-0.1% EYE DROPS Use 1 Drop in both eyes three times a day. 5 mL 4 Active olopatadine (PATADAY TWICE DAILY RELIEF) 0.1 % ophthalmic solution Use 1 Drop in both eyes two times a day. 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 Pseudophakia of both eyes 06/09/2019 Retinal pigment epithelial mottling of macula Contact dermatitis and other eczema, due to unspecified cause 12/20/2008 Resolved Problems Problem Noted Date Diagnosed Date Resolved Date Senile cataract, unspecified 11/03/2010 06/09/2019 Family History Medical History Relation Comments No Ocular Disease Father No Ocular Disease Mother Relation Status Comments Father Mother Social History Tobacco Use Types Packs/Day Years Used Date Smoking Tobacco: Never Smokeless Tobacco: Never Tobacco Cessation:Counseling Given: Not Answered Alcohol Use Standard Drinks/Week Comments Never 0 (1 standard drink = 0.6 oz pur e alcohol) Area Deprivation Index Answer Date Michael rded National Score (1-100), lower number is lower ri sk 75 03/26/2023 State Score (1-10), lower number is lower risk 6 03/26/2023 Data from: https://www.neighborhoodatlas.[facility].edu/. Last address used for calculation [address] 03/26/2023 Comments No Sex and Gender Information Value Date Recorded Sex Assigned at Not on file Legal Sex Female 8:17 AM EST Gender Identity Not on file Sexual Orientation Not on file Last Filed Vital Signs Vital Sign Reading Time Taken Comments Blood Pressure 121/57 01/10/2014 9:15 AM EST Pulse 65 01/10/2014 9:15 AM EST Temperature 37 C (98.6 F) 01/10/2014 8:45 AM EST Respiratory Rate 16 01/10/2014 9:15 AM EST Oxygen Saturation 98% 01/10/2014 9:15 AM EST Inhaled Oxygen Concentration - - Weight 74.8 kg (165 lb) 05/14/2023 12:05 PM EDT self report Height 152.4 cm (5') 05/14/2023 12:05 PM EDT Body Mass Index 32.22 05/14/2023 12:05 PM EDT Plan of Treatment Health Maintenance Due Date Last Done Comments Diabetic Foot Exam 1958 Urine Albumin:Creatinine Ratio 1958 Annual PCP Team Chronic Dise ase Visit 1966 Anxiety Screening 1966 Depression Screening 1966 Hepatitis C Screening 1966 LDL Cholesterol 1966 DTaP,Tdap,Td Vaccine (1 - Tdap) 1967 Pneumococcal Vaccine: 50+ (2 of 2 - PPSV23) 09/17/2021 07/23/2021 Shingrix Vaccine (2 of 2) 09/17/2021 07/23/2021 RSV Vaccine (1 - 1-dose 75+ series) 2023 HbA1C 07/06/2024 01/06/2024, 08/28/2020 Covid-19 Vaccine (4 - 2023-2 5 season) 2024 09/26/2021, 02/20/2021, 01/23/2021 Advance Directive Discussion 11/22/2024 Dilated Retinal Exam 03/13/2025 03/13/2024, 03/10/2023, 02/19/2022, Additional history exists Influenza Vaccine (Season Ended) 2025 08/28/20 22, 10/26/2020 Bone Density Screening Completed 04/15/2016 Mammogram Screening Discontinued 11/24/2021, 04/07/2021, 04/07/2021 Medical Devices Implanted Type Area Chimney Repairer Device Identifier Shelf Expiration Date Model / Serial / Lot Lens Iol +21.5 Aly Acrsf Iq - [id number] Implanted:Qty : 1 on 01/10/2014 at [facility] Intraocular Lens Right: Eye - Lens [employer] [facility] 09/21/2018 [id number] 21.5 / [id number] / [place] [address] [employer] Care Teams Calender Machine Operator Relationship Specialty Start Date End Date Smith Thacker MD [address] [place] [address] PCP - General 01/08/14
--- OUTSIDE RECORDS SUMMARY | 2025-04-19 10:10 | XMS_ITS | Encounter Summary ---
Author Organization Jsoe Schafer [facility] Address [address] [place] [address] Care Team Providers Care Customer Solutions Specialist Name Role Phone Smith Thacker MD Primary Care Provider + Reason for Visit * Reason Comments Medication Refill Encounter Details Date Type Department Care Team (Late st Contact Info) Description 12/05/2020 Refill Smith Thacker MD [address] [phone] Smith Thacker MD [address] [place] [address] Medication Refill Social History Tobacco Use Types [...] 11:10 AM EDT Office Visit [facility] Neuroscience [place], [facility] Neurosurgery [address] [place] [address], [address] [place] [address] Apolinar Mejia MD [address] [address] Lumbar-follow up w/MRI Lumbar@ [facility] 04/19/2025, patient will bring in disc 07/18/2025 3:00 PM EDT Office Visit Smith Thacker MD [address] [phone] Smith Thacker MD [address] [place] [address] 3 MONTH CHECK documented as of this encounter Visit Diagnoses Not on filedocumented in this encounter Additional Health Concerns Infection Onset Date Last Indicated Resolved Time COVID-19 (Rule Out) 03/03/2021 03/03/2021 03/04/20 21 6:02 AM EDT Assessment Noted Time A fall risk assessment has been complete d for the patient 11/11/2020 4:49 PM EST documented as of this encounter Care Teams Customer Solutions Specialist Relationship Specialty Start Date End Date Smith Thacker MD [address] [place] [address] PCP - General Family Medicine 05/18/13 documented as of this encounter
--- OUTSIDE RECORDS SUMMARY | 2025-04-19 10:10 | XMS_ITS | Encounter Summary ---
Author Organization [facility] Address [address] [place] [address] Care Team Providers Care Rivet Driver Name Role Phone Smith Thacker MD Primary Care Provider + Encounter Details Date Type Department Care Team (Late st Contact Info) Description 07/30/[address] [address] Smith Thacker MD [address] [place] [address] Social History Tobacco Use Types Packs/Day Years [...] Answer Date Recorded PHQ-9 Total Score 0 07/22/2022 [facility] - [...] Exposure Response Date Recorded In the last 10 days, have yo u been in contact with someone who was confirmed or suspected to have Coronavirus/COVID-19? No / Unsure 07/22/2022 11:26 AM EDT documented as of this encounter Plan of Treatment Upcoming Encounters Date Type Department Care Team (Late st Contact Info) Description 04/23/2025 11:10 AM EDT Office Visit [facility] Neuroscience [place], [facility] [address] [facility], [address] [place] [address] Apolinar Mejia MD [address] [facility] [address] [place] [address] Lumbar-follow up w/MRI [email or web address]@ [place] 04/19/2025, patient will bring in disc 07/18/2025 3:00 PM EDT Office Visit Smith Thacker MD [facility] [address] [place] [address] Smith Thacker MD [address] [place] [address] 3 MONTH CHECK documented as of this encounter Visit Diagnoses Not on filedocumented in this encounter Additional Health Concerns Assessment Noted Time A fall risk assessment has been complete d for the patient 07/22/2022 11:26 AM EDT documented as of this encounter Care Teams Rivet Driver Relationship Specialty Start Date End Date Smith Thacker MD [address] [place] [address] PCP - General Family Medicine 05/18/13 documented as of this encounter
--- OUTSIDE RECORDS SUMMARY | 2025-04-19 10:10 | XMS_ITS | Clinical Summary ---
Author Organization [facility] Address [address] [place] [address] Care Team Providers Care Biomed Tech Name Role Phone Unavailable Primary Care Provider Unavailabl e Social History Tobacco Use Types Packs/Day Years Used Date Smoking Tobacco: Never Assessed [place] Safety & Environment Answer Date Rec orded Fear of Current or Ex-Partner Not on file Emotionally Abused Not on file 01/13/2024 Physically Abused Not on file 01/13/2024 Sexually Abused Not on file 01/13/2024 Physically or Sexually Abused Not on file Sex and Gender Information Value Date Recorded Sex Assigned at Not on file Gender Identity Not on file Sexual Orientation Not on file Plan of Treatment Not on file
--- OUTSIDE RECORDS SUMMARY | 2025-04-19 10:10 | XMS_ITS | Encounter Summary ---
Author Organization [facility] Address [address] [place] [address] Care Team Providers Care Pbx Wire Chief Name Role Phone Smith Thacker MD Primary Care Provider + Reason for Visit * Reason Comments Medication Refill Encounter Details Date Type Department Care Team (Late st Contact Info) Description 03/24/2016 Refill Smith Thacker MD [facility] 128 [place] [address] Smith Thacker MD [address] [place] [address] Medication Refill Social History Tobacco Use Types [...] Description 04/23/2025 11:10 AM EDT Office Visit [facility] Neuroscience [place], [facility] Neurosurgery [address] [facility], [address] [place] [address] Apolinar Mejia MD [address] [facility] [address] [place] [address] Lumbar-follow up w/MRI [email or web address]@ [place] 04/19/2025, patient will bring in disc 07/18/2025 3:00 PM EDT Office Visit [facility] [address] [place] [phone] Smith Thacker MD [address] [place] [address] 3 MONTH CHECK documented as of this encounter Visit Diagnoses Not on filedocumented in this encounter Additional Health Concerns Infection Onset Date Last Indicated Resolved Time COVID-19 (Rule Out) 03/03/2021 03/03/2021 03/04/20 21 6:02 AM EDT Assessment Noted Time A fall risk assessment has been complete d for the patient 01/31/2016 3:39 PM EST documented as of this encounter Care Teams Pbx Wire Chief Relationship Specialty Start Date End Date Smith Thacker MD [address] [place] [address] PCP - General Family Medicine 05/18/13 documented as of this encounter
--- OUTSIDE RECORDS SUMMARY | 2025-04-19 10:10 | XMS_ITS | Encounter Summary ---
Author Organization [facility] Address [address] [place] [address] Care Team Providers Care Blade Boner Name Role Phone Smith Thacker MD Primary Care Provider + Reason for Visit * Reason Comments Medication Refill Encounter Details Date Type Department Care Team (Late st Contact Info) Description 02/16/2017 Refill Smith Thacker MD [facility] 128 [place] [address] Smith Thacker MD [address] [place] [address] Medication Refill Social History Tobacco Use Types [...] Description 04/23/2025 11:10 AM EDT Office Visit [facility] Neuroscience [place], [facility] Neurosurgery [address] [facility], [address] [place] [address] Apolinar Mejia MD [address] [facility] [address] [place] [address] Lumbar-follow up w/MRI [email or web address]@ [place] 04/19/2025, patient will bring in disc 07/18/2025 3:00 PM EDT Office Visit [facility] [address] [place] [phone] Smith Thacker MD [address] [place] [address] 3 MONTH CHECK documented as of this encounter Visit Diagnoses Not on filedocumented in this encounter Additional Health Concerns Infection Onset Date Last Indicated Resolved Time COVID-19 (Rule Out) 03/03/2021 03/03/2021 03/04/20 21 6:02 AM EDT Assessment Noted Time A fall risk assessment has been complete d for the patient 01/31/2016 3:39 PM EST documented as of this encounter Care Teams Blade Boner Relationship Specialty Start Date End Date Smith Thacker MD [address] [place] [address] PCP - General Family Medicine 05/18/13 documented as of this encounter
--- OUTSIDE RECORDS SUMMARY | 2025-04-19 10:10 | XMS_ITS | Encounter Summary ---
Author Organization [facility] Address [address] [place] [address] Care Team Providers Care Forest Worker Name Role Phone Smith Thacker MD Primary Care Provider + Reason for Visit * Reason Comments Other Encounter Details Date Type Department Care Team (Late st Contact Info) Description 04/06/2015 Refill Smith Thacker MD [facility] [address] [place] [address] Smith Thacker MD [address] [place] [address] Other Social History Tobacco Use Types Packs/Day Years [...] EDT Office Visit [facility] Neuroscience [place], . [facility] [address] [facility], [address] [place] [address] Apolinar Mejia MD [address] [facility] [address] [place] [address] Lumbar-follow up w/MRI [email or web address]@ [place] 04/19/2025, patient will bring in disc 07/18/2025 3:00 PM EDT Office Visit Smith Thacker MD [address] [address] Smith Thacker MD [address] [place] [address] 3 MONTH CHECK documented as of this encounter Visit Diagnoses Not on filedocumented in this encounter Additional Health Concerns Infection Onset Date Last Indicated Resolved Time COVID-19 (Rule Out) 03/03/2021 03/03/2021 03/04/20 21 6:02 AM EDT Assessment Noted Time A fall risk assessment has been complete d for the patient 11/19/2014 2:34 PM EST documented as of this encounter Care Teams Forest Worker Relationship Specialty Start Date End Date Smith Thacker MD [address] [place] [address] PCP - General Family Medicine 05/18/13 documented as of this encounter
--- OUTSIDE RECORDS SUMMARY | 2025-04-19 10:10 | XMS_ITS | Encounter Summary ---
Author Organization [facility] Address [address] [place] [address] Care Team Providers Care Substance Abuse Services Director Name Role Phone Smith Thacker MD Primary Care Provider + Reason for Visit * Reason Comments Medication Refill Encounter Details Date Type Department Care Team (Late st Contact Info) Description 09/23/2020 Refill Smith Thacker MD [address] [address] Smith Thacker MD [address] [place] [address] Medication Refill Social History Tobacco Use Types [...] 11:10 AM EDT Office Visit [facility]science [place], [facility] Neurosurgery [address] [place] [address], [address] [place] [address] Apolinar Mejia MD [address] [address] Lumbar-follow up w/MRI [email or web address]@ [place] 04/19/2025, patient will bring in disc 07/18/2025 3:00 PM EDT Office Visit Smith Thacker MD [address] [address] Smith Thacker MD [address] [place] [address] 3 MONTH CHECK documented as of this encounter Visit Diagnoses Not on filedocumented in this encounter Additional Health Concerns Infection Onset Date Last Indicated Resolved Time COVID-19 (Rule Out) 03/03/2021 03/03/2021 03/04/20 21 6:02 AM EDT Assessment Noted Time A fall risk assessment has been complete d for the patient 09/02/2020 5:32 PM EDT documented as of this encounter Care Teams Substance Abuse Services Director Relationship Specialty Start Date End Date Smith Thacker MD [address] [place] [address] PCP - General Family Medicine 05/18/13 documented as of this encounter
--- OUTSIDE RECORDS SUMMARY | 2025-04-19 10:10 | XMS_ITS | Encounter Summary ---
Author Organization [facility] Address [address] [place] [address] Care Team Providers Care Appeals Reviewer Veteran Name Role Phone Smith Thacker MD Primary Care Provider + Reason for Visit * Reason Comments Medication Refill Encounter Details Date Type Department Care Team (Late st Contact Info) Description 01/04/2020 Refill Smith Thacker MD [address] [address] Smith Thacker MD [address] [place] [address] Medication Refill Social History Tobacco Use Types [...] 11:10 AM EDT Office Visit [facility] Neuroscience [place], [facility]surgery [address] [place] [address], [address] [place] [address] Apolinar Mejia MD [address] [address] Lumbar-follow up w/MRI [email or web address]@ [place] 04/19/2025, patient will bring in disc 07/18/2025 3:00 PM EDT Office Visit [facility] [address] [place] [address] Smith Thacker MD [address] [place] [address] 3 MONTH CHECK documented as of this encounter Visit Diagnoses Not on filedocumented in this encounter Additional Health Concerns Infection Onset Date Last Indicated Resolved Time COVID-19 (Rule Out) 03/03/2021 03/03/2021 03/04/20 21 6:02 AM EDT Assessment Noted Time A fall risk assessment has been complete d for the patient 11/08/2019 11:58 AM EST documented as of this encounter Care Teams Appeals Reviewer Veteran Relationship Specialty Start Date End Date Smith Thacker MD [address] [place] [address] PCP - General Family Medicine 05/18/13 documented as of this encounter
--- OUTSIDE RECORDS SUMMARY | 2025-04-19 10:10 | XMS_ITS | Encounter Summary ---
Author Organization [facility] Address [address] [place] [address] Care Team Providers Care Bowling Ball Weigher And Packer Name Role Phone Smith Thacker MD Primary Care Provider + Reason for Visit * Reason Comments Medication Refill Encounter Details Date Type Department Care Team (Late st Contact Info) Description 12/20/2018 Refill Smith Thacker MD [facility] [address] [place] [address] Smith Thacker MD [address] [place] [address] Medication Refill Social History Tobacco Use Types [...] Description 04/23/2025 11:10 AM EDT Office Visit [facility] Neuroscience [place], [facility] Neurosurgery [address] [place] [address], [address] [place] [address] Apolinar Mejia MD [address] [facility] [address] [place] [address] Lumbar-follow up w/MRI [email or web address]@ [place] 04/19/2025, patient will bring in disc 07/18/2025 3:00 PM EDT Office Visit Smith Thacker MD [address] [address] Smith Thacker MD [address] [place] [address] 3 MONTH CHECK documented as of this encounter Visit Diagnoses Not on filedocumented in this encounter Additional Health Concerns Infection Onset Date Last Indicated Resolved Time COVID-19 (Rule Out) 03/03/2021 03/03/2021 03/04/20 21 6:02 AM EDT Assessment Noted Time A fall risk assessment has been complete d for the patient 08/17/2018 2:32 PM EDT documented as of this encounter Care Teams Bowling Ball Weigher And Packer Relationship Specialty Start Date End Date Smith Thacker MD [address] [place] [address] PCP - General Family Medicine 05/18/13 documented as of this encounter
--- OUTSIDE RECORDS SUMMARY | 2025-04-19 10:10 | XMS_ITS | Encounter Summary ---
Author Organization [facility] Address [address] [place] [address] Care Team Providers Care Membership Coordinator Name Role Phone Smith Thacker MD Primary Care Provider + Reason for Visit * Reason Comments Medication Refill Encounter Details Date Type Department Care Team (Late st Contact Info) Description 01/01/2017 Refill Smith Thacker MD [facility] [address] [place] [address] Smith Thacker MD [address] [place] [address] Medication Refill Social History Tobacco Use Types [...] 11:10 AM EDT Office Visit [facility]science [place], [facility] Neurosurgery [address] [facility], [address] [place] [address] Apolinar Mejia MD [address] [facility] [address] [place] [address] Lumbar-follow up w/MRI Lumbar@ [facility] 04/19/2025, patient will bring in disc 07/18/2025 3:00 PM EDT Office Visit [facility] [address] [place] [phone] Smith Thacker MD [address] [place] [address] 3 MONTH CHECK documented as of this encounter Visit Diagnoses Not on filedocumented in this encounter Additional Health Concerns Infection Onset Date Last Indicated Resolved Time COVID-19 (Rule Out) 03/03/2021 03/03/2021 03/04/20 21 6:02 AM EDT Assessment Noted Time A fall risk assessment has been complete d for the patient 01/31/2016 3:39 PM EST documented as of this encounter Care Teams Membership Coordinator Relationship Specialty Start Date End Date Smith Thacker MD [address] [place] [address] PCP - General Family Medicine 05/18/13 documented as of this encounter
--- OUTSIDE RECORDS SUMMARY | 2025-04-19 10:10 | XMS_ITS | Referral Summary ---
Author Organization [facility] Address [address] [place] [address] Care Team Providers Care Survey Research Analyst Name Role Phone Unavailable Primary Care Provider [...]
--- OUTSIDE RECORDS SUMMARY | 2025-04-19 10:10 | XMS_ITS | Encounter Summary ---
Author Organization [facility] Address [address] [place] [address] Care Team Providers Care Pulp Tester Name Role Phone Smith Thacker MD Primary Care Provider + Reason for Visit * Reason Comments Medication Refill Encounter Details Date Type Department Care Team (Late st Contact Info) Description 06/25/2018 Refill Smith Thacker MD [facility] 128 [place] [address] Smith Thacker MD [address] [place] [address] Medication Refill Social History Tobacco Use Types [...] Description 04/23/2025 11:10 AM EDT Office Visit [facility] Neuroscience [place], [facility] Neurosurgery [address] [place] [address], [address] [place] [address] Apolinar Mejia MD [address] [facility] [address] [place] [address] Lumbar-follow up w/MRI [email or web address]@ [facility] 04/19/2025, patient will bring in disc 07/18/2025 3:00 PM EDT Office Visit Smith Thacker MD [address] [address] Smith Thacker MD [address] [place] [address] 3 MONTH CHECK documented as of this encounter Visit Diagnoses Not on filedocumented in this encounter Additional Health Concerns Infection Onset Date Last Indicated Resolved Time COVID-19 (Rule Out) 03/03/2021 03/03/2021 03/04/20 21 6:02 AM EDT Assessment Noted Time A fall risk assessment has been complete d for the patient 05/27/2018 11:26 AM EDT documented as of this encounter Care Teams Pulp Tester Relationship Specialty Start Date End Date Smith Thacker MD [address] [place] [address] PCP - General Family Medicine 05/18/13 documented as of this encounter
--- OUTSIDE RECORDS SUMMARY | 2025-04-19 10:10 | XMS_ITS | Encounter Summary ---
Author Organization [facility] Address [address] [place] [address] Care Team Providers Care Package Line Operator Name Role Phone Smith Thacker MD Primary Care Provider + Reason for Visit * Reason Comments Medication Refill Encounter Details Date Type Department Care Team (Late st Contact Info) Description 08/07/2020 Refill Smith Thacker MD [address] [address] Smith Thacker MD [address] [place] [address] Medication Refill Social History Tobacco Use Types [...] 11:10 AM EDT Office Visit [facility] Neuroscience [place], [facility] Neurosurgery [address] [place] [address], [address] [place] [address] Apolinar Mejia MD [address] [address] Lumbar-follow up w/MRI [email or web address]@ [place] 04/19/2025, patient will bring in disc 07/18/2025 3:00 PM EDT Office Visit Smith Thacker MD [address] [address] Smith Thacker MD [address] [place] [address] 3 MONTH CHECK documented as of this encounter Visit Diagnoses Not on filedocumented in this encounter Additional Health Concerns Infection Onset Date Last Indicated Resolved Time COVID-19 (Rule Out) 03/03/2021 03/03/2021 03/04/20 21 6:02 AM EDT Assessment Noted Time A fall risk assessment has been complete d for the patient 05/13/2020 3:15 PM EDT documented as of this encounter Care Teams Package Line Operator Relationship Specialty Start Date End Date Smith Thacker MD [address] [place] [address] PCP - General Family Medicine 05/18/13 documented as of this encounter
--- OUTSIDE RECORDS SUMMARY | 2025-04-19 10:10 | XMS_ITS | Encounter Summary ---
Author Organization [facility] Address [address] [place] [address] Care Team Providers Care Single Ending Machine Operator Name Role Phone Smith Thacker MD Primary Care Provider + Reason for Visit * Reason Comments Medication Refill Encounter Details Date Type Department Care Team (Late st Contact Info) Description 01/02/2020 Refill Smith Thacker MD [address] [address] Smith Thacker MD [address] [place] [address] Medication Refill Social History Tobacco Use Types [...] Description 04/23/2025 11:10 AM EDT Office Visit [facility] Neuroscience [place], [facility] Neurosurgery [address] [place] [address], [address] [place] [address] Apolinar Mejia MD [address] [address] Lumbar-follow up w/MRI [email or web address]@ [facility] 04/19/2025, patient will bring in disc 07/18/2025 3:00 PM EDT Office Visit [facility] [address] [place] [address] Smith Thacker MD [address] [place] [address] 3 MONTH CHECK documented as of this encounter Visit Diagnoses Not on filedocumented in this encounter Additional Health Concerns Infection Onset Date Last Indicated Resolved Time COVID-19 (Rule Out) 03/03/2021 03/03/2021 03/04/20 21 6:02 AM EDT Assessment Noted Time A fall risk assessment has been complete d for the patient 11/08/2019 11:58 AM EST documented as of this encounter Care Teams Single Ending Machine Operator Relationship Specialty Start Date End Date Smith Thacker MD [address] [place] [address] PCP - General Family Medicine 05/18/13 documented as of this encounter
--- OUTSIDE RECORDS SUMMARY | 2025-04-19 10:10 | XMS_ITS | Encounter Summary ---
Author Organization [facility] Address [address] [place] [address] Care Team Providers Care Senior Mainframe Programmer Analyst Name Role Phone Smith Thacker MD Primary Care Provider + Reason for Visit * Reason Comments Other Encounter Details Date Type Department Care Team (Late st Contact Info) Description 12/27/2014 Refill Smith Thacker MD [facility] [address] [place] [address] Smith Thacker MD [address] [place] [address] Other Social History Tobacco Use Types Packs/Day [...] Office Visit [facility] Neuroscience [place], . [facility] [address] [facility], [address] [place] [address] Apolinar Mejia MD [address] [facility] [address] [place] [address] Lumbar-follow up w/MRI Lumbar@ [facility] 04/19/2025, patient will bring in disc 07/18/2025 3:00 PM EDT Office Visit Smith Thacker MD [address] [address] Smith Thacker MD [address] [place] [address] 3 MONTH CHECK documented as of this encounter Visit Diagnoses Not on filedocumented in this encounter Additional Health Concerns Infection Onset Date Last Indicated Resolved Time COVID-19 (Rule Out) 03/03/2021 03/03/2021 03/04/20 21 6:02 AM EDT Assessment Noted Time A fall risk assessment has been complete d for the patient 11/19/2014 2:34 PM EST documented as of this encounter Care Teams Senior Mainframe Programmer Analyst Relationship Specialty Start Date End Date Smith Thacker MD [address] [place] [address] PCP - General Family Medicine 05/18/13 documented as of this encounter
--- OUTSIDE RECORDS SUMMARY | 2025-04-19 10:10 | XMS_ITS | Data Portability ---
Author Organization [facility] In 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 Audiogram ordered and reviewed 03/02/24: Right: SRT 85dB; WRS 40% severe to profound MHL Left: SRT 45dB; WRS 90% mod down to severe SNHL - today's findings discussed with patient - discussed BAHA vs bicros - discussed R cochlear implant but patient has Medicare - BAHA sim - return after [email or web address] Not available 03/02/2024 12:16:52 04/05/2024 04/05/2024 1. Situation reviewed with the patient. 2. I have asked for an audiogram to be done today along with an examination. She needs an MR scan and CT scan because she is having disabling tinnitus and she significantly had a hearing change from the 90s when I first met her and did surgery on her. 3. I did have an audiogram performed today and results were discussed with the patient and son. I believe her condition is stable without a ventilation tube in the right ear. I do want an MRI scan for the asymmetric hearing loss and also to make certain that we don t have any recurrent residual cholesteatoma from surgeries many years ago, so a DWI scan is ordered. 4. Call with questions or problems. [email or web address] Not available 04/06/2024 07:48:08 Plan of Treatment Reminders Order Date Submit Date Provider Last Modified By Organization Details Last Modified Time Details Appointments None recorded. Lab None recorded. Referral None recorded. Procedures None recorded. Surgeries None recorded. Imaging MRI, brain + internal auditory canal, w/wo contrast 2023 024 MOISE Not available 05:01:22 Medication Orders None recorded. Patient TargetsNo targets recorded. Patient InstructionsNo instructions recorded. Reason for Referral None Reported. Results Created Date Observation Date Name Description Value Unit Range Abnormal Flag Note LastModifiedBy Organization Detail LastModifiedTime 03/02/20 24 03/02/2024 audio gram No observ ation record ed. [email or web address] Not Available 2023 12:48:36 03/02/20 24 10/30/2016 tympa nogra m No observ ation record ed. [email or web address] Not Available 2023 15:24:19 04/05/20 24 04/05/2024 audio gram No observ ation record ed. [email or web address] Not Available 2023 14:43:19 Result Notes None recorded. Problems Name Problem SNOMED Code Status Onset Date Resolution Date Notes Provider Name and Address Organization Details Recorded Time Subjectiv e pulsatile tinnitus of right ear 296096601985 9108 Active [address] [place] [address], [address], [facility] 4 15:24:45 Sensorine ural hearing loss of bilateral ears 997463793 Active [address] [place] [address], [address], [facility] 4 15:24:46 Recurrent cholestea aiyana of mastoid cavity 829813841 Active [address] [place] [address] [address], [facility] 4 09:46:29 Mixed conductiv e AND sensorine ural hearing loss 73622612 Active [address] [place] [address] [address], [facility] 14:43:33 Problem Notes None recorded. Procedures Surgical History Date Name Laterality Status Provider Name and Address Organization Details Recorded Time [facility] 11:59:03 [facility]ar[facility] 03/02/2024 11:59:16 partial hysterectomy completed [facility] 03/02/2024 11:59:28 Imaging Results None recorded. Procedure Notes None recorded. Medical Equipment None Reported. Allergies No known drug allergies Medications Name Sig Start Date Stop Date Status Note LastModified by Organization Details LastModified Time aspirin 81 mg tablet,delay ed release Take 1 tablet every day by oral route. active Not Available Not Available No t Available Advair Diskus 250 mcg-50 mcg/dose powder for inhalation Inhale 1 puff twice a day by inhalation route. active Not Available Not Available No t Available Delmi Allergy 180 mg tablet Take 1 tablet every day by oral route. active Not Available Not Available No t Available Vitals Date Recorded Body height Body mass index (BMI) Body weight Heart rate Systolic blood pressure Diastolic blood pressure Provider Name and Address Organization Details Last Updated DateTime 157.48 cm 32.6 kg/m2 97992.4 4 g 73 /min 152 mm[Hg] 73 mm[Hg] [facility] 11:53:30 Date Recorded Body height Body mass index (BMI) Body weight Provider Name and Address Organization Details Last Updated DateTime 04/05/2024 157.48 cm 32.6 kg/m2 68766.44 g [facility] 04/05/2024 13:59:44 Social History None recorded. Functional Status Question Answer Note LastModified by Organization D etails LastModified Time What is your level of alcohol consumption? None [email or web address] Information not available 03/02/2024 Mental Status None recorded. Family History Relationship Description Onset Age of this Age Resolved Age Notes LastModified by Organization Details LastModified Time Father Diabetes mellitus [email or web address] Not available 2023 11:55:15 Father Heart disease [email or web address] Not available 2023 11:55:28 Father Family history of malignant neoplasm [email or web address] Not available 2023 11:55:50 Mother Family history of malignant neoplasm [email or web address] Not available 2023 11:55:50 Mother Migraine [email or web address] Not available 03/02/2024 11:56:00 Mother Heart disease [email or web address] Not available 2023 11:56:13 Medical History Condition Response Diabetes Y Hypertension (High Blood Pressure) Y Arthritis Y Sleep Disorder Y Emphysema/COPD Y Acid Reflux (GERD) Y Thyroid Problems Y Hyperlipidemia (High Cholesterol) Y Asthma Y Gynecological HistoryNo gynecological history recorded. Obstetrics History GPAL:G 0 P 0 0 0 0 Past Encounters Encounter ID Performer Location Encounter Start Date Encounter Closed Date Diagnosis/Indication Diagnosis SNOMED-CT Code Diagnosis ICD10 Code Diagnosis Note [id number] CHELA ALMANZAR SR, MD [facility] [address] [place] [address] 03/02/2024 10:54:33 03/02/2024 12:10:18 Sensorineural hearing loss of bilateral ears 156107898 H90.3 Subjective pulsatile tinnitus of right ear 7471391729 548706 H93.A1 Recurrent cholesteatoma of mastoid cavity 145507726 H71.21 [id number] CHELA ALMANZAR SR, MD [facility] [address] [place] [address] 04/05/2024 07:47:07 04/05/2024 15:24:42 Subjective pulsatile tinnitus of right ear 5747410740 566503 H93.A1 Mixed cond uctive AND sensorineural hearing loss 65371898 H90.A31 Health Concerns Section Related Observation LastModified by Organization Detai ls LastModified Time None Recorded Concern Status LastModified by Organization Details LastModified Time None Recorded Advance Directives Directive None Recorded Payers Encounter Date Sequence Insurance Name Policy Number Policy Monteiro Covered Member ID Monteiro Member ID Guarantor Name 03/02/2024 1 [employer] (MEDICARE REPLACEMENT /ADVANTAGE - PPO) [id number] Marah Silva [id number] Marah Cindi LopezRicardo 04/05/2024 1 [employer] (MEDICARE REPLACEMENT /ADVANTAGE - PPO) [id number] Marah Silva [id number] Marah Silva Notes Date Note Type Note Provider Name and Address Organization Details Recorded Time 4 text/htm l 74F who presents with a history of R CWD tympanomastoidectomy with DR. Almanzar. She is complaining of R ear itchiness, pain, and tinnitus. She endorses decreased hearing bilaterally. No otorrhea, [place] [address] [address], [place], [address], [facility] 03/14/2024 15:32:21 4 text/htm l The patient is having difficulty hearing. She wonders if her hearing got any better but she feels she has significant hearing loss in both ears.She was seen on April 01 and at that time we did do a hearing test and she had a profound mixed hearing loss in the right ear, severe hearing loss in the left ear with 90% discrimination.She acts like she is having increased hearing problems today.The patient and her son present today. She is worried about changes in her hearing on the right side. Basically she is having no pain in the ear. She has no change in hearing in her left [place] [address] [address] [address], [place], [address], [facility] 04/11/2024 12:28:50 OBGyn Episode No OBEpisode recorded.
--- OUTSIDE RECORDS SUMMARY | 2025-04-19 10:10 | XMS_ITS | Encounter Summary ---
Author Organization [facility] Schafer [facility] Address [address] [place] [address] Care Team Providers Care Etcher Apprentice Name Role Phone Smith Thacker MD Primary Care Provider + Reason for Visit * Reason Comments Medication Refill Encounter Details Date Type Department Care Team (Late st Contact Info) Description 07/23/2020 Refill Smith Thacker MD [address] [address] Smith Thacker MD [address] [place] [address] Medication Refill Social History Tobacco Use Types [...] Description 04/23/2025 11:10 AM EDT Office Visit [facility] Neuroscience [place], [facility] Neurosurgery [address] [place] [address], [address] [place] [address] Apolinar Mejia MD [address] [address] Lumbar-follow up w/MRI [email or web address]@ [facility] 04/19/2025, patient will bring in disc 07/18/2025 3:00 PM EDT Office Visit Smith Thacker MD [address] [address] Smith Thacker MD [address] [place] [address] 3 MONTH CHECK documented as of this encounter Visit Diagnoses Not on filedocumented in this encounter Additional Health Concerns Infection Onset Date Last Indicated Resolved Time COVID-19 (Rule Out) 03/03/2021 03/03/2021 03/04/20 21 6:02 AM EDT Assessment Noted Time A fall risk assessment has been complete d for the patient 05/13/2020 3:15 PM EDT documented as of this encounter Care Teams Etcher Apprentice Relationship Specialty Start Date End Date Smith Thacker MD [address] [place] [address] PCP - General Family Medicine 05/18/13 documented as of this encounter
--- OUTSIDE RECORDS SUMMARY | 2025-04-19 10:10 | XMS_ITS | Encounter Summary ---
Author Organization Jose Schafer [facility] Address [address] [place] [address] Care Team Providers Care Chemists Name Role Phone Smith Thacker MD Primary Care Provider + Reason for Visit * Reason Comments Medication Refill Encounter Details Date Type Department Care Team (Late st Contact Info) Description 08/21/2018 Refill Smith Thacker MD [facility] [address] [place] [address] Smith Thacker MD [address] [place] [address] Medication Refill Social History Tobacco Use Types [...] [facility] Neuroscience [place], [facility] Neurosurgery [address] [place] [address], [address] [place] [address] Apolinar Mejia MD [address] [facility] [address] [place] [address] Lumbar-follow up w/MRI [email or web address]@ [facility] 04/19/2025, patient will bring in disc 07/18/2025 3:00 PM EDT Office Visit Smith Thacker MD [address] [address] Smith Thacker MD [address] [place] [address] 3 MONTH CHECK documented as of this encounter Visit Diagnoses Not on filedocumented in this encounter Additional Health Concerns Infection Onset Date Last Indicated Resolved Time COVID-19 (Rule Out) 03/03/2021 03/03/2021 03/04/20 21 6:02 AM EDT Assessment Noted Time A fall risk assessment has been complete d for the patient 08/17/2018 2:32 PM EDT documented as of this encounter Care Teams Chemists Relationship Specialty Start Date End Date Smith Thacker MD [address] [place] [address] PCP - General Family Medicine 05/18/13 documented as of this encounter
--- OUTSIDE RECORDS SUMMARY | 2025-04-19 10:10 | XMS_ITS | Clinical Summary ---
Author Organization [facility] Healthcare Address [address] [facility] [place] [address] Care Team Providers Care Distresser Name Role Phone Unavailable Primary Care Provider Unavailabl e Social History Tobacco Use Types Packs/Day Years Used Date Smoking Tobacco: Never Assessed Comments Unknown Sex and Gender Information Value Date Recorded Sex Assigned at Not on file Legal Sex Female 7:12 PM EDT Gender Identity Not on file Sexual Orientation Not on file Last Filed Vital Signs Vital Sign Reading Time Taken Comments Blood Pressure 130/60 06/12/2021 12:00 PM EDT Pulse - - Temperature - - Respiratory Rate - - Oxygen Saturation - - Inhaled Oxygen Concentration - - Weight 77.6 kg (171 lb) 06/12/2021 12:00 PM EDT Height 152.4 cm (5') 06/12/2021 12:00 PM EDT Body Mass Index 33.4 06/12/2021 12:00 PM EDT Plan of Treatment Not on file
--- OUTSIDE RECORDS SUMMARY | 2025-04-19 10:10 | XMS_ITS | Encounter Summary ---
Author Organization Jose Schafer [facility] Address [address] [place] [address] Care Team Providers Care Supervisor [employer] Name Role Phone Smith Thacker MD Primary Care Provider + Reason for Visit * Reason Comments Medication Refill Encounter Details Date Type Department Care Team (Late st Contact Info) Description 01/27/2017 Refill Smith Thacker MD [facility] [address] [place] [address] Smith Thacker MD [address] [place] [address] Medication Refill Social History Tobacco Use Types [...] 11:10 AM EDT Office Visit [facility] Neuroscience [place], [facility] Neurosurgery [address] [facility], [address] [place] [address] Apolinar Mejia MD [address] [facility] [address] [place] [address] Lumbar-follow up w/MRI Lumbar@ [facility] 04/19/2025, patient will bring in disc 07/18/2025 3:00 PM EDT Office Visit [facility] [address] [place] [address] Smith Thacker MD [address] [place] [address] 3 MONTH CHECK documented as of this encounter Visit Diagnoses Not on filedocumented in this encounter Additional Health Concerns Infection Onset Date Last Indicated Resolved Time COVID-19 (Rule Out) 03/03/2021 03/03/2021 03/04/20 21 6:02 AM EDT Assessment Noted Time A fall risk assessment has been complete d for the patient 01/31/2016 3:39 PM EST documented as of this encounter Care Teams Supervisor T[employer] Relationship Specialty Start Date End Date Smith Thacker MD [address] [place] [address] PCP - General Family Medicine 05/18/13 documented as of this encounter
--- OUTSIDE RECORDS SUMMARY | 2025-04-19 10:10 | XMS_ITS | Encounter Summary ---
Author Organization [facility] Address [address] [place] [address] Care Team Providers Care Resident Care Manager Name Role Phone Smith Thacker MD Primary Care Provider + Reason for Visit * Reason Comments Medication Refill Encounter Details Date Type Department Care Team (Late st Contact Info) Description 10/25/2016 Refill Smith Thacker MD [facility] [address] [place] [address] Smith Thacker MD [address] [place] [address] Medication Refill Social History Tobacco Use Types [...] 11:10 AM EDT [facility] Visit [facility] [place], [facility] Neurosurgery [address] [facility], [address] [place] [address] Apolinar Mejia MD [address] [facility] [address] [place] [address] Lumbar-follow up w/MRI Lumbar@ [facility] 04/19/2025, patient will bring in disc 07/18/2025 3:00 PM EDT Office Visit [facility] [address] [place] [phone] Smith Thacker MD [address] [place] [address] 3 MONTH CHECK documented as of this encounter Visit Diagnoses Not on filedocumented in this encounter Additional Health Concerns Infection Onset Date Last Indicated Resolved Time COVID-19 (Rule Out) 03/03/2021 03/03/2021 03/04/20 21 6:02 AM EDT Assessment Noted Time A fall risk assessment has been complete d for the patient 01/31/2016 3:39 PM EST documented as of this encounter Care Teams Resident Care Manager Relationship Specialty Start Date End Date Smith Thacker MD [address] [place] [address] PCP - General Family Medicine 05/18/13 documented as of this encounter
--- OUTSIDE RECORDS SUMMARY | 2025-04-19 10:10 | XMS_ITS | Encounter Summary ---
Author Organization Jose Schafer [facility] Address [address] [place] [address] Care Team Providers Care Heating Equipment Repairer Name Role Phone Smith Thacker MD Primary Care Provider + Reason for Visit * Reason Comments Medication Refill Encounter Details Date Type Department Care Team (Late st Contact Info) Description 05/14/[address] [facility] [address] [place] [address] Smith Thacker MD [address] [place] [address] Medication Refill Social History Tobacco Use Types [...] Description 04/23/2025 11:10 AM EDT Office Visit [facility] Neuroscience [place], [facility] Neurosurgery [address] [place] [address], [address] [place] [address] Apolinar Mejia MD [address] [facility] [address] [place] [address] Lumbar-follow up w/MRI Lumbar@ [facility] 04/19/2025, patient will bring in disc 07/18/2025 3:00 PM EDT Office Visit Smith Thacker MD [address] [address] Smith Thacker MD [address] [place] [address] 3 MONTH CHECK documented as of this encounter Visit Diagnoses Not on filedocumented in this encounter Additional Health Concerns Infection Onset Date Last Indicated Resolved Time COVID-19 (Rule Out) 03/03/2021 03/03/2021 03/04/20 21 6:02 AM EDT Assessment Noted Time A fall risk assessment has been complete d for the patient 04/08/2018 12:22 PM EDT documented as of this encounter Care Teams Heating Equipment Repairer Relationship Specialty Start Date End Date Smith Thacker MD [address] [place] [address] PCP - General Family Medicine 05/18/13 documented as of this encounter
--- OUTSIDE RECORDS SUMMARY | 2025-04-19 10:10 | XMS_ITS | Clinical Summary ---
Author Organization [facility] Address [address] [place] [address] Care Team Providers Care Nutritional Services Cook Name Role Phone Smith Thacker MD Primary Care Provider + Allergies Active Allergy Reactions Criticality Noted Date Comments Azithromycin Hives Low 06/18/2023 Sulfamethoxazole-Trimethop rim Nausea And Vomiting Low 12/08/2022 Abdominal cramping, didn't clear infection Ciprofloxacin 05/19/2013 Morphine 06/30/2016 Penicillins 05/19/2013 Sulfa Antibiotics Other (See Comments) Low 12/01/2021 Sulfamethoxazole Nausea Only Low 12/01/2021 Sulfamethoxazole-Trimethop rim 05/19/2013 Trimethoprim Nausea Only Low 12/01/2021 Cetirizine Hcl 05/19/2013 Medications Lancets Misc. (ACCU-CHEK MULTICLIX LANCET DEV) KIT 1 kit by Does not apply route 2 times daily 1 kit 02/25/20 18 Active ferrous sulfate (IRON 325) 325 (65 Fe) MG tablet Take 1 tablet by mouth 2 times daily 90 tablet 1 09/01/20 21 Active blood glucose test strips (ACCU-CHEK RAS) strip 100 each by In Vitro route 2 times daily As needed. 100 strip 3 07/28/20 22 Active mometasone (NASONEX) 50 MCG/ACT nasal spray 2 sprays by Nasal route daily 1 each 04/13/20 23 Active olopatadine (PATANOL) 0.1 % ophthalmic solution 04/19/20 23 Active EQ EYE ITCH RELIEF 0.025 % ophthalmic solution INSTILL 1 DROP INTO AFFECTED EYE TWICE DAILY FOR 7 DAYS 05/08/20 23 Active aspirin 81 MG chewable tablet Take by mouth Active amLODIPine (NORVASC) 2.5 MG tablet TAKE 1 TABLET DAILY 90 tablet 3 10/07/20 23 Active Biotin 90330 MCG TABS Take by mouth Active acetaminophen (TYLENOL) 500 MG tablet Take 1 tablet by mouth every 6 hours as needed for Pain Active Respiratory Therapy Supplies (NEBULIZER/TUBIN G/MOUTHPIECE) KIT 1 kit by Does not apply route 4 times daily 1 kit 03/07/20 24 Active Ascorbic Acid (VITAMIN C PO) Take by mouth A ctive levothyroxine (SYNTHROID) 100 MCG tablet TAKE 1 TABLET DAILY 90 tablet 3 05/19/20 24 Active ramipril (ALTACE) 10 MG capsule TAKE 1 CAPSULE DAILY 90 capsule 3 07/17/20 24 Active pantoprazole (PROTONIX) 40 MG tablet TAKE 1 TABLET EVERY MORNING BEFORE BREAKFAST 90 tablet 3 09/18/20 24 Active meloxicam (MOBIC) 7.5 MG tablet Take 1 tablet by mouth once daily 90 tablet 09/28/20 24 Active Additional Information Patient not taking.Reported on 03/21/2025 ondansetron (ZOFRAN) 4 MG tablet Take 1 tablet by mouth 3 times daily as needed for Nausea or Vomiting 15 tablet 09/28/20 24 Active Additional Information Patient not taking.Reported on 03/21/2025 atorvastatin (LIPITOR) 10 MG tablet TAKE 1 TABLET DAILY 90 tablet 3 10/16/20 24 Active fluticasone (FLONASE) 50 MCG/ACT nasal spray USE 2 SPRAY(S) IN EACH NOSTRIL ONCE DAILY FOR 14 DAYS 16 g 1 10/30/20 24 Active sucralfate (CARAFATE) 1 GM tablet TAKE 1 TABLET FOUR TIMES A DAY 360 tablet 3 11/13/20 24 Active ipratropium 0.5 mg-albuterol 2.5 mg (DUONEB) 0.5-2.5 (3) MG/3ML SOLN nebulizer solutionIndicati ons:Chronic bronchitis, unspecified chronic bronchitis type (HCC) Inhale 3 mLs into the lungs every 4 hours 360 mL 1 11/30/19 25 Active blood glucose monitor stripsIndication s:Type 2 diabetes mellitus without complication, without long-term current use of insulin (HCC) Test 3 times a day & as needed for symptoms of irregular blood glucose. Dispense sufficient amount for indicated testing frequency plus additional to accommodate PRN testing needs. 100 strip 1 12/11/19 25 Active blood glucose monitor strips Test 4 times a day for symptoms of irregular blood glucose. Dispense sufficient amount for indicated testing frequency 100 strip 3 12/13/19 25 Active loratadine (CLARITIN) 10 MG tablet Take 1 tablet by mouth daily 90 tablet 01/26/20 25 025 Active metFORMIN (GLUCOPHAGE) 500 MG tablet TAKE 1 TABLET EVERY MORNING AND 1 TABLET EVERY EVENING, TWICE A DAY 180 tablet 3 03/19/20 25 Active tiZANidine (ZANAFLEX) 2 MG tablet Take 1 tablet by mouth every 8 hours as needed (TAKE NEEDED FOR PAIN) 90 tablet 1 04/11/20 25 Active albuterol sulfate HFA (PROVENTIL;CHRIS JOVITA;PROAIR) 108 (90 Base) MCG/ACT inhaler Inhale 2 puffs into the lungs every 6 hours as needed for Wheezing 1 each 1 04/18/20 25 Active fluticasone-salm eterol (ADVAIR) 250-50 MCG/ACT AEPB diskus inhaler Inhale 1 puff into the lungs 2 times daily 1 each 04/18/20 25 Active albuterol sulfate HFA (PROVENTIL;CHRIS JOVITA;PROAIR) 108 (90 Base) MCG/ACT inhaler Inhale 2 puffs into the lungs every 6 hours as needed for Wheezing 1 each 1 09/28/20 24 025 Discontin ued(REORD ER) fluticasone-salm eterol (ADVAIR) 250-50 MCG/ACT AEPB diskus inhaler Inhale 1 puff into the lungs 2 times daily 1 each 11 10/30/20 24 025 Discontin ued(REORD ER) tiZANidine (ZANAFLEX) 2 MG tablet Take 1 tablet by mouth every 6 hours as needed ( NEEDED FOR PAIN) 14 tablet 02/15/20 25 025 Discontin ued(REORD ER) fluticasone-salm eterol (ADVAIR) 250-50 MCG/ACT AEPB diskus inhaler Inhale 1 puff into the lungs 2 times daily 1 each 11 03/23/20 25 025 Discontin ued(REORD ER) tiZANidine (ZANAFLEX) 2 MG tablet Take 1 tablet by mouth every 6 hours as needed ( NEEDED FOR PAIN) 30 tablet 03/27/20 25 025 Discontin ued(REORD ER) tiZANidine (ZANAFLEX) 2 MG tablet Take 1 tablet by mouth every 6 hours as needed ( NEEDED FOR PAIN) 30 tablet 03/29/20 25 025 Discontin ued(REORD ER) tiZANidine (ZANAFLEX) 2 MG tablet Take 1 tablet by mouth every 6 hours as needed ( NEEDED FOR PAIN) 7 tablet 04/09/20 25 025 Discontin ued(REORD ER) tiZANidine (ZANAFLEX) 2 MG tablet TAKE 1 TABLET BY MOUTH EVERY 6 HOURS NEEDED FOR PAIN 7 tablet 04/11/20 25 025 Discontin ued(DUPLI JESSE) tiZANidine (ZANAFLEX) 2 MG tabletIndication s:Spinal stenosis of lumbar region, unspecified whether neurogenic claudication present,Chronic midline low back pain without sciatica,Chronic pain due to trauma Take 1 tablet by mouth every 6 hours as needed ( NEEDED FOR PAIN) 360 tablet 04/11/20 25 025 Discontin ued(DUPLI JESSE) tiZANidine (ZANAFLEX) 2 MG tabletIndication s:Spinal stenosis of lumbar region, unspecified whether neurogenic claudication present,Chronic midline low back pain without sciatica,Chronic pain due to trauma Take 1 tablet by mouth every 6 hours as needed (FOR PAIN) 28 tablet 04/11/20 25 025 Discontin ued(DUPLI JESSE) Active Problems Patient Care Coordination No te Formatting of this note migh t be different from the original. Dr. Nunez- GI Last colonoscopy 08/21/16. Next colon due in 2020 Problem Noted Date Diagnosed Date Gastritis medicamentosa 04/03/2024 Ingrown nail 04/03/2024 Strain of neck muscle 04/03/2024 Acute cough 04/03/2024 Acute exacerbation of chronic obstructive pulmon bartolo disease 04/03/2024 Sensorineural hearing loss (SNHL) of both ears 0 03/02/2024 Subjective pulsatile tinnitus of right ear 03/02 Toothache 01/01/2024 Spinal stenosis of lumbar re gion with neurogenic claudication 10/21/2023 Lumbosacral spondylosis without myelopathy 10/21 Seasonal allergic rhinitis 07/28/2023 Neck pain 07/20/2023 Pain in right toe(s) 06/19/2023 Intercostal neuralgia 04/21/2023 Mononeuropathy of lower extremity 02/23/2023 Neuralgia and neuritis, unspecified 02/14/2023 Right hip pain 02/11/2023 Acquired absence of both cervix and uterus 09/07 Acquired absence of other sp ecified parts of digestive tract 09/07/2022 Gastro-esophageal reflux disease without esophag itis 09/07/2022 detention (current) use of aspirin 09/07/2022 pairer substandard (current) use of oral hypoglycemic tres gs 09/07/2022 Other flame hardener (current) drug therapy Primary osteoarthritis, right wrist 09/07/2022 Pain in wrist 09/06/2022 Heart failure, unspecified 07/29/2022 Hypertensive heart disease with heart failure Trochanteric bursitis of right hip 07/06/2022 Other muscle spasm 07/01/2022 Cervical spondylosis without myelopathy 03/19/20 22 Spondylosis without myelopat hy or radiculopathy, lumbar region 03/09/2022 Chronic pain 08/02/2017 Tubular adenoma of colon 08/19/2016 Family history of colon cancer 07/16/2016 Diarrhea 07/16/2016 DM (diabetes mellitus) 05/19/2013 Hypothyroid 05/19/2013 History of colon polyps IBS (irritable bowel syndrome) Resolved Problems Problem Noted Date Diagnosed Date Resolved Date Dehydration 07/29/2022 05/07/2023 Osteoporosis 05/19/2013 04/29/2016 Encounters Date Type Department Care Team Description 04/18/2025 2:30 PM EDT Office Visit [facility] [address] [place] [address] Smith Thacker MD Diabetes mellitus due to underlying condition with hyperosmolarity without coma, without long-term current use of insulin (HCC) (Primary Dx); Mild intermittent asthmatic bronchitis without complication; Morbid obesity due to excess calories (HCC); Acute exacerbation of chronic obstructive pulmonary disease (HCC); Subclinical iodine-deficiency hypothyroidism 04/11/2025 Refill [facility] [address] [place] [address] Smith Thacker MD New Med Request 04/11/2025 [facility]ill [facility] [address] [place] [address] Smith Thacker MD Medication Refill 04/11/[address] [facility] [address] [place] [address] Smith Thacker MD Medication Refill 04/09/2025 [facility]ill [facility] [address] [place] [address] Smith Thacker MD Medication Refill 03/29/[address] [facility] [address] [place] [address] Padmaja Pizano MA 03/27/2025 Orders Only [address] [address] Padmaja Pizano MA 03/23/2025 Orders Only [address] [address] Padmaja Pizano MA 03/21/2025 11:50 AM EDT Office Visit [facility], [facility] [address] [place] [address], [address] [place] [address] Apolinar Mejia MD Spinal stenosis of lumbar region with neurogenic claudication (Primary Dx) 03/19/2025 Abstract [facility], [facility] [address], [address] [place] [address] Desi James MA 03/19/2025 Refill [facility] [address] [facility] [place] [address] Smith Thacker MD Medication Refill 03/07/2025 2:45 PM EDT Office Visit [facility] [address] [place] [address] Smith Thacker MD Acute bronchitis, unspecified organism (Primary Dx); Diabetes mellitus due to underlying condition with hyperosmolarity without coma, without long-term current use of insulin (HCC); Hypertensive heart disease with heart failure (HCC) 03/07/2025 Travel 03/05/2025 Abstract [facility] [address] [place] [address] Smith Thacker MD 02/14/2025 Orders Only [address] [address] Padmaja Pizano MA 02/08/[address] [facility] [address] [place] [address] Padmaja Pizano MA [facility] 01/25/2025 Orders Only [address] [place] [address] Padmaja Pizano MA 01/24/2025 11:30 AM EST Office Visit [facility] [address] [place] [address] Smith Thacker MD Diabetes mellitus due to underlying condition with hyperosmolarity without coma, without long-term current use of insulin (HCC) (Primary Dx); Hypertensive heart disease with heart failure (HCC); Postmenopausal 01/24/2025 Travel from Last 3 Months Immunizations Immunization Administration Dates Next Due COVID-19, MODERNA JAME banks, Primary or Immunocompromised, (age 12y+), IM, 100 mcg/0.5mL 02/20/2021,01/31/2021,01/23/2021 COVID-19, PFIZER PURPLE top, DILUTE for use, (age 12 y+), 30mcg/0.3mL 09/26/2021 COVID-19, [place] Vaccine, Vaccine Unspecified 2020,01/31/2021,01/23/2021 Influenza, FLUZONE High Dose (age 65 y+), IM, Quadv, 0.7mL 10/26/2020 Influenza, FLUZONE High Dose , (age 65 y+), IM, Trivalent PF, 0.5mL 08/28/2022 Pneumococcal, PCV-13, PREVNA R 13, (age 6w+), IM, 0.5mL 07/23/2021 Zoster Recombinant (Shingrix) 07/23/2021 Family History Medical History Relation Name Comments Cancer Brother 3 colon, prostate Arthritis Father Cancer Father tongue Diabetes Father Heart Disease Father High Blood Pressure Father Heart Disease Mother Diabetes Sister Heart Disease Sister Stroke Sister Relation Name Status Comments Brother 1 (Age 59) heart [place] ck Brother 2 (Age 54) heart [place] c[place] Brother 3 Alive Father (Age 81) heart [place] c[place] Mother (Age 75) heart [place] c[place] Sister (Age 64) Social History Tobacco Use Types Packs/Day Years [...] 02/05/2021 How often do you attend chur or latter day services? More than 4 times per year 02/05/2021 Do you belong to any clubs o r organizations such as religion groups, unions, fraternal [...] Date Recorded PHQ-9 Total Score 0 03/07/2025 [facility] - Occupational Stress [...] Mass Index 34.76 04/18/2025 2:37 PM EDT Plan of Treatment Upcoming Encounters Date Type Department Care Team (Late st Contact Info) Description 04/23/2025 11:10 AM EDT Office Visit [facility] [place], [facility] [address], [address] [place] [address] Apolinar Mejia MD [address] [place] [address] Lumbar-follow up w/MRI Lumbar@ [place] 04/19/2025, patient will bring in disc 07/18/2025 3:00 PM EDT Office Visit [facility] [address] [place] [phone] Smith Thacker MD [address] [place] [address] 3 MONTH CHECK Health Maintenance Due Date Last Done Comments Diabetic Alb to Cr ratio (uACR) test 1966 DTaP/Tdap/Td vaccine (1 - Tdap) 1967 Pneumococcal 50+ years Vaccine (2 of 2 - PPSV23) 09/17/2021 07/23/2021 Shingles vaccine (2 of 2) 09/17/2021 07/23/2021 Respiratory Syncytial Virus (RSV) or age 60 yrs+ (1 - 1-dose 75+ series) 2023 Lipids 08/29/2023 08/29/2022, 03/01/2021, 07/31/2016, Additional history exists GFR test (Diabetes, CKD 3-4, OR last GFR 15-59) 12/02/2023 12/02/2022, 04/17/2014, 03/21/2013, Additional history exists COVID-19 Vaccine ( season) 2024 09/26/2021, 02/20/2021, 02/20/2021, Additional history exists Annual Wellness Visit (Medicare Advantage) 11/22/2024 08/21/2024 Flu vaccine (Season Ended) 2025 08/28/2022, Depression Screen 03/07/2026 03/07/2025, 03/07/2025 Diabetic retinal exam Discontinued 11/19/2014 (Postpon ed) FIT/FOBT: Average risk Discontinued 08/21/2016 Colonoscopy Discontinued 03/07/2021, 07/25, 07/04/2014 Colorectal Cancer Screen Discontinued Breast cancer screen Discontinued 11/24/2021, 04/07/2021, 12/25/2016, Additional history exists Diabetic foot exam Discontinued 05/13/2023, 1 (Postponed) A1C test (Diabetic or Prediabetic) Discontinued 11/04/2024, 01/06/2024, 05/13/2023, Additional history exists DEXA (modify frequency per FRAX score) Completed 02/07/2025, 04/15/2016, 07/04/2014 (Postponed) Fecal-DNA (Cologuard): Average risk Discontinued Hepatitis A vaccine Aged Out No longe r eligible based on patient's age to complete this topic Hepatitis B vaccine Aged Out No longe r eligible based on patient's age to complete this topic Hepatitis C screen Discontinued Hib vaccine Aged Out No longer eligi ble based on patient's age to complete this topic Meningococcal (ACWY) vaccine Aged Out No longer eligible based on patient's age to complete this topic Meningococcal B vaccine Aged Out No l onger eligible based on patient's age to complete this topic Polio vaccine Aged Out No longer elig ible based on patient's age to complete this topic Sigmoidoscopy/CT colonography Discontinued Procedures Procedure Name Priority Date/Time Associated Diagnosis Comments DEXA BONE DENSITY AXIAL SKELETON Routine 02/07/2025 Postmenopausal HEMOGLOBIN A1C Routine 11/04/2024 Type 2 diabetes mellitus without complication, without long-term current use of insulin (HCC) COMPREHENSIVE METABOLIC PANEL Routine 12/02/2022 1:55 PM EST Weight loss LIPID, FASTING Routine 08/29/2022 Coronary artery disease involving poarch coronary artery of poarch heart without angina pectoris ARNULFO COMFORT DIGITAL SCREEN SELF REFERRAL W OR WO CAD BILATERAL Routine 04/07/2021 Encounter for screening for malignant neoplasm of breast, unspecified screening modality OCCULT BLOOD SCREEN Routine 08/21/2016 1 0:11 AM EDT Diarrhea, unspecified type from Last 3 Months or Most Recently Relevant to Health Maintenance Results * DEXA BONE DENSITY AXIAL SKELETON (02/07/2025) Anatomical Region Laterality Modality Head, C-spine, T-spine, L-spine, Chest Other us Smith Thacker MD IMG DEXA ORDERABLES Mahogany l Result * Hemoglobin A1C (11/04/2024) Hemoglobin A1C 6.5 % Estimated Avg Glucose 140 Blood BLOOD SPECIMEN / Unknown 11/04/2024 Nancy Nj MD CHEMISTRY ORDERABLES Fin al Result * (ABNORMAL) Comprehensive Metabolic Panel (12/02/2022 1:55 PM EST) Glucose 135(H) 70 - 99 mg/dL 12/02/2022 1:55 PM [facility] BUN 14 8 - 23 mg/dL 12/02/2022 1:55 PM [facility] Creatinine 0.53 0.50 - 0.90 mg/dL 12/02/2022 1:55 PM [facility] Est, Glom Filt Rate >60 >60 mL/min/1.7 3m2 12/02/2022 1:55 PM [facility] Comment: Effective Aug 24, 2022 These results are [...] following therapy that affects renal tubular secretion. Calcium 9.6 8.6 - 10.4 mg/dL 12/02/2022 1:55 PM [facility] Sodium 141 135 - 144 mmol/L 12/02/2022 1:55 PM [facility] Potassium 4.3 3.7 - 5.3 mmol/L 12/02/2022 1:55 PM [facility] Chloride 105 98 - 107 mmol/L 12/02/2022 1:55 PM [facility] CO2 26 20 - 31 mmol/L 12/02/2022 1:55 PM [facility] Anion Gap 10 9 - 17 mmol/L 12/02/2022 1:55 PM EST [facility] Alkaline Phosphatase 79 35 - 104 U/L 12/02/2022 1:55 PM EST [facility] ALT 14 5 - 33 U/L 12/02/2022 1:55 PM EST [facility] AST 18 <32 U/L 12/02/2022 1:55 PM EST [facility] Total Bilirubin 0.5 0.3 - 1.2 mg/dL 12/02/2022 1:55 PM EST [facility] Total Protein 6.6 6.4 - 8.3 g/dL 12/02/2022 1:55 PM [facility] Albumin 3.8 3.5 - 5.2 g/dL 12/02/2022 1:55 PM [facility] BLOOD SPECIMEN / Unknown 12/02/2022 1:55 PM EST 12/02/2022 2:00 PM EST Kory Nunez MD CHEMISTRY ORDERABLES Mahogany l Result [facility] Ray Titus. [address] [phone] * (ABNORMAL) Lipid, Fasting (08/29/2022) Cholesterol, Fasting 157 Triglyceride, Fasting 53 HDL 84(A) 35 - 70 mg/dL LDL Calculated 82.4 0 - 160 mg/dL BLOOD SPECIMEN / Unknown 08/29/2022 Smith Thacker MD CHEMISTRY ORDERABLES Fin al Result * ARNULFO COMFORT DIGITAL SCREEN SELF REFERRAL W OR WO CAD BILATERAL (04/07/2021) Anatomical Region Laterality Modality Breast Bilateral Mammography us Smith Thacker MD IMG MAMMOGRAPHY ORDERABL ES Final Result * Occult Blood Screen (08/21/2016 10:11 AM EDT) Occult Blood, Stool #1 NEGATIVE NEG 08/21/2016 10:21 AM EDT PN LAB Date, Stool #1 08.21.2016 08/21/2016 10:12 AM EDT PN LAB Time, Stool #1 UNKNOWN 08/21/2016 10:12 AM EDT [facility] Comment: Performed at [facility] [address] [place], [place] [id number] ([phone] Occult Blood, Stool #2 NOT REPORTED NEG [facility] Date, Stool #2 NOT REPORTED ME [facility] Time, Stool #2 NOT REPORTED ME [facility] Occult Blood, Stool #3 NOT REPORTED NEG [facility] Date, Stool #3 NOT REPORTED ME [facility] Time, Stool #3 NOT REPORTED ME [facility] STOOL SPECIMEN / Unknown 08/21/2016 10:11 AM EDT 08/21/2016 10:11 AM EDT Myra Roach CPNP BODY FLUIDS AND STOOLS O RDERABLES Final Result [facility] [address] [place] [address], [facility] [phone] [facility] from Last 3 Months or Most Recently Relevant to Health Maintenance [place] [address] [facility] MEDICARE [employer] MEDICARE HU[employer] MEDICARE Care Teams Nutritional Services Cook Relationship Specialty Start Date End Date Smith Thacker MD [address] [place] [phone] PCP - General Family Medicine 05/18/13
--- OUTSIDE RECORDS SUMMARY | 2025-04-19 10:10 | XMS_ITS | Encounter Summary ---
Author Organization [facility] Address [address] [place] [address] Care Team Providers Care Shotblaster Name Role Phone Smith Thacker MD Primary Care Provider + Reason for Visit * Reason Comments Medication Refill Encounter Details Date Type Department Care Team (Late st Contact Info) Description 05/06/2021 Refill Smith Thacker MD [facility] [address] [place] [phone] Smith Thacker MD [address] [place], [place] [phone] Medication Refill Social History Tobacco Use Types [...] often do you attend chur ch or yazidism services? More than 4 times per year 02/05/2021 Do you belong to any clubs o r organizations such as orthodox groups, unions, fraternal or athletic groups, or [...] Answer Date Recorded PHQ-9 Total Score 0 05/09/2021 [facility] Occupat ional [facility] - Occupational Stress Questionnaire Answer Date Recorded [...] have Coronavirus / COVID-19? No / Unsure 05/09/2021 12:28 PM EDT documented as of this encounter Plan of Treatment Upcoming Encounters Date Type Department Care Team (Late st Contact Info) Description 04/23/2025 11:10 AM EDT Office Visit [facility] [place], [facility] [address], [address] [place] [address] Apolinar Mejia MD [address] [place], [place] [phone] Lumbar-follow up w/MRI Lumbar@ [place] 04/19/2025, patient will bring in disc 07/18/2025 3:00 PM EDT Office Visit Smith Thacker MD [address] [address] Smith Thacker MD [address] [place] [address] 3 MONTH CHECK documented as of this encounter Visit Diagnoses Not on filedocumented in this encounter Additional Health Concerns Assessment Noted Time A fall risk assessment has been complete d for the patient 03/17/2021 2:38 PM EDT documented as of this encounter Care Teams Shotblaster Relationship Specialty Start Date End Date Smith Thacker MD [address] [place] [address] PCP - General Family Medicine 05/18/13 documented as of this encounter
--- OUTSIDE RECORDS SUMMARY | 2025-04-19 10:10 | XMS_ITS | Encounter Summary ---
Author Organization [facility] Address [address] [place] [address] Care Team Providers Care Shellfish Weigher Name Role Phone Smith Thacker MD Primary Care Provider + Reason for Visit * Reason Comments Medication Refill Encounter Details Date Type Department Care Team (Late st Contact Info) Description 11/11/2018 Refill Smith Thacker MD [facility] [address] [place] [address] Smith Thacker MD [address] [place] [address] Medication Refill Social History Tobacco Use Types [...] AM EDT Office Visit [facility] [place], [facility] [address] [place] [address], [address] [place] [address] Apolinar Mejia MD [address] [facility] [address] [place] [address] Lumbar-follow up w/MRI Lumbar@ [place] 04/19/2025, patient will bring in disc 07/18/2025 3:00 PM EDT Office Visit Smith Thacker MD [address] [address] Smith Thacker MD [address] [place] [id number] 3 MONTH CHECK documented as of this encounter Visit Diagnoses Not on filedocumented in this encounter Additional Health Concerns Infection Onset Date Last Indicated Resolved Time COVID-19 (Rule Out) 03/03/2021 03/03/2021 03/04/20 21 6:02 AM EDT Assessment Noted Time A fall risk assessment has been complete d for the patient 08/17/2018 2:32 PM EDT documented as of this encounter Care Teams Shellfish Weigher Relationship Specialty Start Date End Date Smith Thacker MD [address] [place] [id number] PCP - General Family Medicine 05/18/13 documented as of this encounter
--- OUTSIDE RECORDS SUMMARY | 2025-04-19 10:11 | XMS_ITS | Encounter Summary ---
Author Organization Jose Gilmar [facility] Address [address] [place] [address] Care Team Providers Care Communications Executive Name Role Phone Smith Thacker MD Primary Care Provider + Encounter Details Date Type Department Care Team (Late Contact Info) Description 08/24/2016 FollowUp Telephone Encounter [facility] General Surgery [address] [place] [address] Acacia Sweet, RN Social History Tobacco Use Types Packs/Day Years [...] Encounters Date Type Department Care Team (Late Contact Info) Description 04/23/2025 11:10 AM EDT Office Visit [facility] Neuroscience [place], [facility] [address] [facility], [address] [place] [address] Apolinar Mejia MD [address] [place] [address] Lumbar-follow up w/MRI [email or web address]@ [email or web address] 04/19/2025, patient will bring in disc 07/18/2025 3:00 PM EDT Office Visit [facility] [address] [place] [address] Smith Thacker MD [address] [place] [address] 3 MONTH CHECK documented as of this encounter Visit Diagnoses Not on filedocumented in this encounter Additional Health Concerns Infection Onset Date Last Indicated Resolved Time COVID-19 (Rule Out) 03/03/2021 03/03/2021 03/04/20 21 6:02 AM EDT Assessment Noted Time A fall risk assessment has been complete d for the patient 01/31/2016 3:39 PM EST documented as of this encounter Care Teams Communications Executive Relationship Specialty Start Date End Date Smith Thacker MD [address] [place] [address] PCP - General Family Medicine 05/18/13 documented as of this encounter
--- OUTSIDE RECORDS SUMMARY | 2025-04-19 10:11 | XMS_ITS | Encounter Summary ---
Author Organization Jose Schafer [facility] Address [address] [place] [address] Care Team Providers Care Seat Maker Name Role Phone Smith Thacker MD Primary Care Provider + Reason for Visit * Reason Comments Medication Refill Encounter Details Date Type Department Care Team (Late st Contact Info) Description 07/20/2017 Refill Smith Thacker MD [facility] [address] [place] [address] Smith Thacker MD [address] [place] [address] Medication Refill Social History Tobacco Use Types [...] Description 04/23/2025 11:10 AM EDT Office Visit [facility] Neuroscience [place], [facility] Neurosurgery [address] [facility], [address] [place] [address] Apolinar eMjia MD [address] [facility] [address] [place] [address] Lumbar-follow up w/MRI [email or web address]@ [place] 04/19/2025, patient will bring in disc 07/18/2025 3:00 PM EDT Office Visit [facility] [address] [place] [phone] Smith Thacker MD [address] [place] [address] 3 MONTH CHECK documented as of this encounter Visit Diagnoses Not on filedocumented in this encounter Additional Health Concerns Infection Onset Date Last Indicated Resolved Time COVID-19 (Rule Out) 03/03/2021 03/03/2021 03/04/20 21 6:02 AM EDT Assessment Noted Time A fall risk assessment has been complete d for the patient 05/17/2017 2:46 PM EDT documented as of this encounter Care Teams Seat Maker Relationship Specialty Start Date End Date Smith Thacker MD [address] [place] [address] PCP - General Family Medicine 05/18/13 documented as of this encounter
--- OUTSIDE RECORDS SUMMARY | 2025-04-19 10:11 | XMS_ITS | Encounter Summary ---
Author Organization Jose Schafer [facility] Address [address] [place] [address] Care Team Providers Care Devil Dog Name Role Phone Smith Thacker MD Primary Care Provider + Reason for Visit * Reason Comments Medication Refill Encounter Details Date Type Department Care Team (Late st Contact Info) Description 03/14/2017 Refill Smith Thacker MD [facility] [address] [place] [address] Smith Thacker MD [address] [place] [address] Medication Refill Social History Tobacco Use Types [...] Description 04/23/2025 11:10 AM EDT Office Visit [facility] Neuroscience [place], [facility] Neurosurgery [address] [facility], [address] [place] [address] Apolinar Mejia MD [address] [facility] [address] [place] [address] Lumbar-follow up w/MRI Lumbar@ [facility] 04/19/2025, patient will bring in disc 07/18/2025 3:00 PM EDT Office Visit [facility] [address] [place] [phone] Smith Thacker MD [address] [place] [address] 3 MONTH CHECK documented as of this encounter Visit Diagnoses Not on filedocumented in this encounter Additional Health Concerns Infection Onset Date Last Indicated Resolved Time COVID-19 (Rule Out) 03/03/2021 03/03/2021 03/04/20 21 6:02 AM EDT Assessment Noted Time A fall risk assessment has been complete d for the patient 01/31/2016 3:39 PM EST documented as of this encounter Care Teams Devil Dog Relationship Specialty Start Date End Date Smith Thacker MD [address] [place] [address] PCP - General Family Medicine 05/18/13 documented as of this encounter
--- OUTSIDE RECORDS SUMMARY | 2025-04-19 10:11 | XMS_ITS | Clinical Summary ---
Author Organization [employer] Address [id number] [address] [place] [address] Care Team Providers Care Fiberglass Insulation Installer Name Role Phone Smith Thacker MD Primary Care Provider + Allergies Active Allergy Reactions Criticality Noted Date Comments Sulfamethoxazole-Trimethoprim 2018 Ciprofloxacin 01/20/2020 Morphine 12/07/2017 Ibuprofen 12/07/2017 Penicillins 12/07/2017 Cetirizine 12/07/2017 Medications amLODIPine (NORVASC) 2.5 mg tablet Take 1 tablet (2.5 mg total) by mouth in the morning. Active ramipriL (ALTACE) 10 mg capsule Take 1 capsule (10 mg total) by mouth in the morning. Active atorvastatin (LIPITOR) 10 mg tablet Take 1 tablet (10 mg total) by mouth in the morning. Active aspirin 81 mg Take 1 tablet (81 mg total) by mouth in the morning. Active metFORMIN (GLUCOPHAGE) 500 mg tablet Take 1 tablet (500 mg total) by mouth in the morning and 1 tablet (500 mg total) in the evening. Take with meals. Active biotin 1 mg capsule Take by mouth. Activ e ferrous sulfate 325 (65 FE) mg tablet Take 1 tablet (325 mg total) by mouth in the morning and 1 tablet (325 mg total) in the evening. Take with meals. Wednesday, Wednesday, WEDNESDAY. Active sucralfate (CARAFATE) 1 gram tablet Take 1 tablet (1 g total) by mouth in the morning and 1 tablet (1 g total) at noon and 1 tablet (1 g total) in the evening and 1 tablet (1 g total) before bedtime. Active levothyroxine (SYNTHROID, LEVOTHROID) 100 MCG tablet Take 1 tablet (100 mcg total) by mouth in the morning. 2 Active tiZANidine (ZANAFLEX) 2 mg tablet Take 1 tablet (2 mg total) by mouth in the morning and at bedtime. Active fluticasone propionate (FLONASE) 50 mcg/actuation nasal spray Administer 1 spray into each nostril in the morning. Active fluticasone propion-salmete roL (ADVAIR) 250-50 mcg/dose DISKUS Inhale 1 puff in the morning and 1 puff before bedtime. Active pantoprazole (PROTONIX) 40 mg EC tablet Take 1 tablet (40 mg total) by mouth in the morning and at bedtime. 180 tablet 1 4 Active loratadine (CLARITIN) 10 mg tablet Take 1 tablet (10 mg total) by mouth in the morning. Active ascorbic acid (VITAMIN C ORAL) Take by mouth. Activ e mometasone (NASONEX) 50 mcg/actuation nasal spray Administer 2 sprays into each nostril in the morning. Active sod sulf-pot chloride-mag sulf 1.479-0.188- 0.225 gram tabletIndicatio ns:Anemia, unspecified type Please see instructional sheet given by physicians office. 24 tablet 4 Active Active Problems Problem Noted Date Diagnosed Date COVID-19 virus infection 06/13/2024 Chronic obstructive pulmonar y disease with acute lower respiratory infection 06/13/2024 History of coronary artery bypass graft 06/13/20 24 Type 2 diabetes mellitus wit hout complication, without long-term current use of insulin 06/13/2024 Resolved Problems Problem Noted Date Diagnosed Date Resolved Date COVID-19 06/12/2024 06/13/2024 Encounters Date Type Department Care Team Description 04/11/2025 Refill [facility] [address] [place] [phone] Oscar Villatoro DO from Last 3 Months Immunizations Immunization Administration Dates Next Due COVID-19, mRNA, LNP-S, PF, 100mcg/0.5mL Dose 11/2020,01/23/2021 Family History Medical History Relation Name Comments Colon cancer Brother Colon cancer Sister 1 Colon cancer Sister 2 Relation Name Status Comments Brother Sister 1 Sister 2 Social History Tobacco Use Types Packs/Day Years Used Date Smoking Tobacco: Never Smokeless Tobacco: Never Tobacco Cessation:Counseling Given: Not Answered Alcohol Use Standard Drinks/Week Comments No 0 (1 standard drink = 0.6 oz pur e alcohol) [facility] Utilities Answer Date Recorded In the past 12 months has th e electric, gas, oil, or water company threatened to shut off services in your home? No 06/13/2024 PRAPARE - Transportation Answer Date Re corded In the past 12 months, has l ack of transportation kept you from medical appointments or from getting medications? No 05/23 In the past 12 months, has l ack of transportation kept you from meetings, work, or from getting things needed for daily living? No 06/13/2024 Housing Instability Answer Date Recorde d Are you worried or concerned that in the next two months you may not have stable housing that you own, rent or stay in as a part of a household? No 06/13/2024 Childcare Answer Date Recorded Childcare Unknown 04/27/2019 Employment Answer Date Recorded Employment Unknown 04/27/2019 Hunger Screening Answer Date Recorded Within the past 12 months we worried whether our food would run out before we got money to buy more. Never True 06/13/2024 Within the past 12 months th e food we bought just didn't last and we didn't have money to get more. Never True 06/13/2024 Purpose - Life Answer Date Recorded Purpose and direction in life Unknown Comments No Sex and Gender Information Value Date Recorded Sex Assigned at Not on file Legal Sex Female 11:29 AM EDT Gender Identity Not on file Sexual Orientation Not on file Last Filed Vital Signs Vital Sign Reading Time Taken Comments Blood Pressure 143/64 11/03/2024 1:35 PM EST Pulse 88 11/03/2024 1:35 PM EST Temperature 36.7 C (98 F) 06/13/2024 12:00 PM EDT Respiratory Rate 16 06/13/2024 12:00 PM EDT Oxygen Saturation 96% 06/13/2024 12:00 PM EDT Inhaled Oxygen Concentration - - Weight 81.2 kg (179 lb) 11/03/2024 1:35 PM EST Height 152.4 cm (5') 06/13/2024 2:53 AM EDT Body Mass Index 34.96 06/13/2024 2:53 AM EDT Plan of Treatment Health Maintenance Due Date Last Done Comments Depression Screening 1960 DTaP,Tdap and Td Vaccines (1 - Tdap) 1967 Fall Risk Screening 2013 Zoster (Shingles) Vaccine (2 of 2) 09/17/2021 07/23/2021 COVID-19 Vaccine (5 - 2023-2 5 season) 2024 09/26/2021, 02/20/2021, 01/31/2021, Additional history exists Influenza Vaccine 07/23/2025 08/28/2022, 10/26/2020 Tobacco Screening 11/03/2025 11/03/2024 Goals Goal Patient Goal Type Associated Problems Recent Progress Patient-Stated? Author Home General Yes Shelly Milian LSW Note: Evaluation of progress towards goal: In progress: DC to home today. Medical Devices Not on file Insurance [employer] INSURANCE Advance Directives * Full Code (Latest Code Status on File) Date Activated Date Inactivated Comments 06/12/2024 11:18 PM 06/13/2024 8:47 PM Care Teams Fiberglass Insulation Installer Relationship Specialty Start Date End Date Smith Thacker MD [address] [place] [address] PCP - General Family Medicine 12/07/17
--- OUTSIDE RECORDS SUMMARY | 2025-04-19 10:11 | XMS_ITS | Encounter Summary ---
Author Organization [email or web address] Address [id number] [address] [place] [address] Care Team Providers Care Trailer Park Manager Name Role Phone Smith Thacker MD Primary Care Provider + Reason for Visit * Reason Comments Med Refill Encounter Details Date Type Department Care Team (Late st Contact Info) Description 04/11/2025 Refill [facility] [address] [place] [phone] Oscar Villatoro, DO [address] [phone] Social History Tobacco Use Types Packs/Day Years Used Date Smoking Tobacco: Never Smokeless Tobacco: Never Alcohol Use Standard Drinks/Week Comments No 0 (1 standard drink = 0.6 oz pur e alcohol) [facility] Utilities Answer Date Recorded In the past 12 months has [employer], gas, oil, or water [employer] threatened to shut off services in your [...] as of this encounter Plan of Treatment Not on file documented as of this encounter Goals Goal Patient Goal Type Associated Problems Recent Progress Patient-Stated? Author Home General Yes Shelly Milian LSW Note: Evaluation of progress towards goal: In progress: DC to home today. documented as of this encounter Visit Diagnoses Not on filedocumented in this encounter Care Teams Trailer Park Manager Relationship Specialty Start Date End Date Smith Thacker MD [address] [place] [address] PCP - General Family Medicine 12/07/17 documented as of this encounter
--- OUTSIDE RECORDS SUMMARY | 2025-04-19 10:11 | XMS_ITS | Encounter Summary ---
Author Organization [facility] [facility] [facility] Address [id number] [address] [place] [address] Care Team Providers Care Sports Agent Name Role Phone Smith Thacker MD Primary Care Provider + Encounter Details Date Type Department Care Team (Late st Contact Info) Description 12/22/2024 Telephone [facility] General Surgery [address] [place] [address] Yolie Richard RMA Social History Tobacco Use Types Packs/Day Years Used Date Smoking Tobacco: Never Smokeless Tobacco: Never Alcohol Use Standard Drinks/Week Comments No 0 (1 standard drink = 0.6 oz pur e alcohol) [facility] Utilities Answer Date Recorded In the past 12 months has e electric, gas, oil, or water company [...] on file documented as of this encounter Miscellaneous Notes * Telephone Encounter - HESHAM Hinkle - 12/22/2024 11:17 AM EST I tried to call Marah to ask her if she would be willing to move her surgery to [place]. I called both phone line and they are not active. She is presently on [facility] for 01/10/25. documented in this encounter Plan of Treatment Not on file documented as of this encounter Goals Goal Patient Goal Type Associated Problems Recent Progress Patient-Stated? Author Home General Yes Shelly Milian LSW Note: Evaluation of progress towards goal: In progress: DC to home today. documented as of this encounter Visit Diagnoses Not on filedocumented in this encounter Care Teams Sports Agent Relationship Specialty Start Date End Date Smith Thacker MD [address] [place] [address] PCP - General Family Medicine 12/07/17 documented as of this encounter
--- OUTSIDE RECORDS SUMMARY | 2025-04-19 10:11 | XMS_ITS | Encounter Summary ---
Author Organization Jose Schafer [facility] Address [address] [place] [address] Care Team Providers Care Superintendent General Name Role Phone Smith Thacker MD Primary Care Provider + Reason for Visit * Reason Comments Medication Refill Encounter Details Date Type Department Care Team (Late st Contact Info) Description 08/24/2017 Refill Smith Thacker MD [facility] [address] [place] [address] Smith Thacker MD [address] [place] [address] Medication Refill Social History Tobacco Use Types [...] Visit [facility] Neuroscience [place], [facility] Neurosurgery [address] [facility] [place] [facility], [address] [place] [address] Apolinar Mejia MD [address] [facility] [place] [facility] [address] [place] [address] Lumbar-follow up w/MRI Lumbar@ [facility] 04/19/2025, patient will bring in disc 07/18/2025 3:00 PM EDT Office Visit [facility] [address] [place] [phone] Smith Thacker MD [address] [place] [address] 3 MONTH CHECK documented as of this encounter Visit Diagnoses Not on filedocumented in this encounter Additional Health Concerns Infection Onset Date Last Indicated Resolved Time COVID-19 (Rule Out) 03/03/2021 03/03/2021 03/04/20 21 6:02 AM EDT Assessment Noted Time A fall risk assessment has been complete d for the patient 08/18/2017 12:42 PM EDT documented as of this encounter Care Teams Superintendent General Relationship Specialty Start Date End Date Smith Thacker MD [address] [place] [address] PCP - General Family Medicine 05/18/13 documented as of this encounter
--- OUTSIDE RECORDS SUMMARY | 2025-04-19 10:11 | XMS_ITS | Encounter Summary ---
Author Organization Jose Sch[facility]er [facility] Address [address] [place] [address] Care Team Providers Care Comb Winder Name Role Phone Smith Thacker MD Primary Care Provider + Reason for Visit * Reason Comments Medication Refill Encounter Details Date Type Department Care Team (Late st Contact Info) Description 06/25/2020 Refill Smith Thacker MD [address] [phone] Smith Thakcer MD [address] [place] [address] Medication Refill Social History Tobacco Use Types [...] 11:10 AM EDT Office Visit [facility] Neuroscience [place], [facility] Neurosurgery [address] [place] [address], [address] [place] [address] Apolinar Mejia MD [address] [address] Lumbar-follow up w/MRI Lumbar@ [facility] 04/19/2025, patient will bring in disc 07/18/2025 3:00 PM EDT Office Visit Smith Thacker MD [address] [phone] Smith Thacker MD [address] [place] [address] 3 MONTH CHECK documented as of this encounter Visit Diagnoses Not on filedocumented in this encounter Additional Health Concerns Infection Onset Date Last Indicated Resolved Time COVID-19 (Rule Out) 03/03/2021 03/03/2021 03/04/20 21 6:02 AM EDT Assessment Noted Time A fall risk assessment has been complete d for the patient 05/13/2020 3:15 PM EDT documented as of this encounter Care Teams Comb Winder Relationship Specialty Start Date End Date Smith Thacker MD [address] [place] [id number] PCP - General Family Medicine 05/18/13 documented as of this encounter
--- OUTSIDE RECORDS SUMMARY | 2025-04-19 10:11 | XMS_ITS | Encounter Summary ---
Author Organization Jose Schafer [facility] Address [address] [place] [address] Care Team Providers Care Oil Spot Washer Name Role Phone Smith Thacker MD Primary Care Provider + Reason for Visit * Reason Comments Medication Refill Encounter Details Date Type Department Care Team (Late st Contact Info) Description 05/20/2017 Refill Smith Thacker MD [facility] [address] [place] [address] Smith Thacker MD [address] [place] [address] Medication Refill Social History Tobacco Use Types [...] Description 04/23/2025 11:10 AM EDT [facility] [place], [facility] Neurosurgery [address] [facility], [address] [place] [address] Apolinar Mejia MD [address] [facility] [address] [place] [address] Lumbar-follow up w/MRI Lumbar@ [facility] 04/19/2025, patient will bring in disc 07/18/2025 3:00 PM EDT Office Visit [facility] [address] [place] [phone] Smith Thacker MD [address] [place] [address] 3 MONTH CHECK documented as of this encounter Visit Diagnoses Not on filedocumented in this encounter Additional Health Concerns Infection Onset Date Last Indicated Resolved Time COVID-19 (Rule Out) 03/03/2021 03/03/2021 03/04/20 21 6:02 AM EDT Assessment Noted Time A fall risk assessment has been complete d for the patient 05/17/2017 2:46 PM EDT documented as of this encounter Care Teams Oil Spot Washer Relationship Specialty Start Date End Date Smith Thacker MD [address] [place] [address] PCP - General Family Medicine 05/18/13 documented as of this encounter
--- OUTSIDE RECORDS SUMMARY | 2025-04-19 10:11 | XMS_ITS | Encounter Summary ---
Author Organization Jose Schafer [facility] Address [address] [place] [address] Care Team Providers Care Press Operator Automatic Name Role Phone Smith Thacker MD Primary Care Provider + Reason for Visit * Reason Comments Medication Refill Encounter Details Date Type Department Care Team (Late st Contact Info) Description 08/18/2017 Refill Smith Thacker MD [facility] [address] [place] [address] Smith Thacker MD [address] [place] [address] Medication Refill Social History Tobacco Use Types [...] Description 04/23/2025 11:10 AM EDT Office Visit [facility] Neuroscience [place], [facility] Neurosurgery [address] [facility], [address] [place] [address] Apolinar Mejia MD [address] [facility] [address] [place] [address] Lumbar-follow up w/MRI Lumbar@ [facility] 04/19/2025, patient will bring in disc 07/18/2025 3:00 PM EDT Office Visit [facility] [address] [place] [phone] Smith Thacker MD [address] [place] [address] 3 MONTH CHECK documented as of this encounter Visit Diagnoses Not on filedocumented in this encounter Additional Health Concerns Infection Onset Date Last Indicated Resolved Time COVID-19 (Rule Out) 03/03/2021 03/03/2021 03/04/20 21 6:02 AM EDT Assessment Noted Time A fall risk assessment has been complete d for the patient 08/18/2017 12:42 PM EDT documented as of this encounter Care Teams Press Operator Automatic Relationship Specialty Start Date End Date Smith Thacker MD [address] [place] [address] PCP - General Family Medicine 05/18/13 documented as of this encounter
--- OUTSIDE RECORDS SUMMARY | 2025-04-19 10:11 | XMS_ITS | Patient Health Record ---
Author Organization The [facility] in [place] Address [address] [place] [address] Care Team Providers Care Pulper Tender Name Role Phone Kedar EDWARDS, Smith Primary Care Provider Zbigniew Servin [phone] Allergies Allergen (clinical drug ingredient) Drug/Non Drug Allergy documented on EMR Reaction Allergy Type Onset Date Status sulfamethoxazole / trimethoprim Bactrim stomach upset Drug Allergy Active ciprofloxacin Cipro stomach upset Drug Allergy Active ZyrTEC Unknown Drug Allergy Active Substance with sulfonamide structure and antibacterial mechanism of action (substance) Sulfa Antibiotics stomach upset Drug Allergy Active morphine Morphine Unknown Drug Allergy Active Penicillin rash Drug Allergy Active Results Component Value Reference Range Notes PROF 14(COMP METB) Reviewed date:10/01/2024 05:35:18 PM Interpretation: Performing Lab: Notes/Report: [facility] , Sodium 146 136-145 mmol/L Potassium 3.9 3.5-5.1 mmol/L Chloride 110 98-107 mmol/L Carbon Dioxide 27.4 21.0-32.0 mmol/L Anion Gap 12.5 Glucose 91 74-106 mg/dL Blood Urea Nitrogen 15.0 7.0-18.0 mg/dL Creatinine 0.88 0.55-1.02 mg/dL Estimated GFR ( Debbie >60 >=60 mL/mi n/1.73m 2 Estimated GFR (Non- Lakisha >60 >=60 mL/mi n/1.73m 2 BUN Creatinine Ratio 17.0 Calcium 8.2 8.5-10.1 mg/dL Bilirubin Total 0.5 0.2-1.0 mg/dL Aspartate Amino Transferase 18 15-37 U/L Alanine Aminotransferase 20 14-59 U/L Alkaline Phosphatase 60 46-116 U/L Total Protein 5.5 6.4-8.2 g/dL Albumin Level 2.8 3.4-5.0 g/dL Globulin 2.7 Albumin Globulin Ratio 1.0 Performing Lab: see note ML - [facility] LB CBC AUTO DIFF Reviewed date:10/01/2024 05:35:18 PM Interpretation: Performing Lab: Notes/Report: [facility] , White Blood Count 6.4 4.0-11.0 10 3/uL Red Blood Count 2.71 4.20-5.40 10 6/uL Hemoglobin 8.4 12.0-16.0 g/dL Hematocrit 25.5 36.0-48.0 % Mean Corpuscular Volume 94.1 81.0-99.0 fL Mean Corpuscular Hemoglobin 31.0 26.7-34.0 pg Mean Corpuscular HGB Conc 32.9 29.9-35.2 g/dL Red Cell Distribution Width 14.6 11.0-15.0 % Platelet Count 174 150-450 10 3/uL Mean Platelet Volume 9.4 9.5-13.5 fL Neutrophils Percent Auto 52.5 43.0-75.0 % Lymphocytes Percent Auto 36.2 20.5-60.0 % Monocytes Percent Auto 6.1 1.7-12.0 % Eosinophils Percent Auto 4.3 0.9-7.0 % Basophils Percent Auto 0.6 0.2-2.0 % Immature Granulocytes Pct Auto 0.3 0.0-0.5 % Neutrophils Absolute Auto 3.3 1.4-6.5 10 3/uL Lymphocytes Absolute Auto 2.3 1.2-3.8 10 3/uL Monocytes Absolute Auto 0.4 0.3-0.8 10 3/uL Eosinophils Absolute Auto 0.3 0.0-0.7 10 3/uL Basophils Absolute Auto 0.0 0.0-0.1 10 3/uL Immature Granulocytes Abs Auto 0.02 0.00-0.03 10 3/uL Performing Lab: see note ML - [facility] LB Second ABO/RH Type Reviewed date:09/30/2024 04:01:15 PM Interpretation: Performing Lab: Notes/Report: [facility] , Blood Type #2 O Positive CBC no Diff (Hemogram) Reviewed date:10/01/2024 05:35:18 PM Interpretation: Performing Lab: Notes/Report: [facility] , White Blood Count 7.6 4.0-11.0 10 3/uL Red Blood Count 2.59 4.20-5.40 10 6/uL Hemoglobin 7.9 12.0-16.0 g/dL Hematocrit 23.9 36.0-48.0 % RESULTS CALLED TO Waldo Moya RN @BY Jamil Lenz MLT at 2344 Mean Corpuscular Volume 92.3 81.0-99.0 fL Mean Corpuscular Hemoglobin 30.5 26.7-34.0 pg Mean Corpuscular HGB Conc 33.1 29.9-35.2 g/dL Red Cell Distribution Width 14.4 11.0-15.0 % Platelet Count 176 150-450 10 3/uL Mean Platelet Volume 9.7 9.5-13.5 fL Performing Lab: see note ML - [facility] LB CBC AUTO DIFF Reviewed date:10/01/2024 05:35:18 PM Interpretation: Performing Lab: Notes/Report: [facility] , White Blood Count 7.4 4.0-11.0 10 3/uL Red Blood Count 2.54 4.20-5.40 10 6/uL Hemoglobin 7.9 12.0-16.0 g/dL Hematocrit 23.7 36.0-48.0 % RESULTS CALLED TO ge pabon rn @BY Milagros Laws at 1642 Mean Corpuscular Volume 93.3 81.0-99.0 fL Mean Corpuscular Hemoglobin 31.1 26.7-34.0 pg Mean Corpuscular HGB Conc 33.3 29.9-35.2 g/dL Red Cell Distribution Width 14.1 11.0-15.0 % Platelet Count 170 150-450 10 3/uL Mean Platelet Volume 9.4 9.5-13.5 fL Neutrophils Percent Auto 59.0 43.0-75.0 % Lymphocytes Percent Auto 31.8 20.5-60.0 % Monocytes Percent Auto 5.8 1.7-12.0 % Eosinophils Percent Auto 2.6 0.9-7.0 % Basophils Percent Auto 0.5 0.2-2.0 % Immature Granulocytes Pct Auto 0.3 0.0-0.5 % Neutrophils Absolute Auto 4.4 1.4-6.5 10 3/uL Lymphocytes Absolute Auto 2.4 1.2-3.8 10 3/uL Monocytes Absolute Auto 0.4 0.3-0.8 10 3/uL Eosinophils Absolute Auto 0.2 0.0-0.7 10 3/uL Basophils Absolute Auto 0.0 0.0-0.1 10 3/uL Immature Granulocytes Abs Auto 0.02 0.00-0.03 10 3/uL Performing Lab: see note ML - [facility] LB Type and Screen Reviewed date:09/30/2024 04:01:15 PM Interpretation: Performing Lab: Notes/Report: [facility] , Blood Type O Positive Antibody Screen NEGATIVE Packed Red Blood Cells Reviewed date:09/30/2024 04:01:15 PM Interpretation: Performing Lab: Notes/Report: Packed Red Blood Cells [id number] OP RC TRANSFUSED 09/30/24 1147 Reason For Referral No Information Medications Medication SIG (Take, Route, Frequency, Duration) Notes Start Date End Date Status Ferrous Sulfate 325 MG as directed Orally Active Mometasone Furoate 50 MCG/ACT 4 sprays (2 sprays in each nostril) Nasally Once a day for 30 day(s) Active Fluticasone-Salmeterol 250-50 MCG/DOSE as directed Inhalation Active Pantoprazole Sodium 40 MG 1 tablet Orally Once a day for 30 day(s) Active Vitamin B-12 1000 MCG 1 tablet Orally Once a day for 30 day(s) Active Baclofen 10 MG 1 tablet as needed Orally Twice a day Active Atorvastatin Calcium 10 MG 1 tablet Orally Once a day for 30 day(s) Active Loratadine 10 MG 1 tablet Orally Once a day for 30 day(s) Active traMADol HCl 50 MG 1 tablet as needed Orally BID for 7 Days Active Co Enzyme Q-10 Activ e Benzonatate 200 MG 1 capsule Orally Three times a day for 30 day(s) Active metFORMIN HCl 500 MG 1 tablet with a meal Orally Once a day for 30 day(s) Active Albuterol 108mcg/act inhaler 2 puffs q6hrs prn wheezing Active Ipratropium-Albuterol 0.5-2.5 (3) MG/3ML 3 mL as needed Inhalation every 6 hrs Active Ramipril 10 MG 1 capsule Orally Once a day for 30 day(s) Active Aspirin 81 81 MG 1 tablet Orally Once a day for 30 day(s) Active amLODIPine Besylate 2.5 MG 1 tablet Orally Once a day for 30 day(s) Active Levothyroxine Sodium 100 MCG 1 tablet in the morning on an empty stomach Orally Once a day for 30 day(s) Active Sucralfate 1 GM 1 tablet on an empty stomach Orally Twice a day for 30 day(s) Active Social History Tobacco Use: Social History Observation Description Date Details (start date - stop date) Never Smoker NA - NA Tobacco Use/Smoking Question Answer Notes Patient is a nonsmoker Section Notes: nonsmoker, denies ETOH use nonsmoker, denies ETOH use nonsmoker, denies ETOH use Problems Problem Type SNOMED Code ICD Code Onset Dates Problem Status W/U Status Risk Notes Problem Gastroesophageal reflux disease (211070171) GERD (gastroesophage al reflux disease) (K21.9) Active confirmed Problem Sleep apnea (07647657) Sleep apnea (G47.30) Active confirmed Problem Degeneration of lumbar intervertebral disc (70588259) Lumbar degenerative disc disease (M51.36) Active confirmed Problem Sacroiliitis (56209268) Sacroiliitis (M46.1) Active confirmed Problem Cervical disc disorder (034812004) DDD (degenerative disc disease), cervical (M50.30) Active confirmed Problem Diabetes mellitus (62483718) Diabetes mellitus (E11.9) Active confirmed Plan Of Treatment Pending Test Test Name Order Date MRI Lumbar Spine w/o contrast 06/09/2023 Insurance Providers Payer Name Payer Address Payer Phone Subscriber Number Group Number Insured Name Patient Relationship to Insured Coverage Start Date Coverage End Date [facility] MED[facility] ADV PLAN [address] [address] [place] [address] [phone] [id number] Ricardo Fouzia Self - patient is the insured 8 Medical (General) History Medical History History ICD Code Cataract Hx of sinus infections Thyroid disease DM type 2 Hx of DC HTN Anemia Asthma Hx of TB Hx of gallstones Diverticulitis with Diarrhea Surgical History Surgery Date(Month/Year) 4 or 5 mastoid surgeries 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
--- NOTE | 2025-04-19 10:26 | MR_ITS ---
The [address] [address] Patient Name: EDITH KHOURY MRN: [facility]:[id number] date: 1950 Sex: F Assigned Patient Location: MRI Current Patient Location: MRI Accession/Order Number: [id number] Exam Date: 04/19/2025 11:58 Report Date: 04/19/2025 12:09 At the request of: NON-STAFF PHYSICIAN Procedure: MR lumbar spine wo con MR lumbar spine wo con 04/19/2025 11:06 AM SIGNS AND SYMPTOMS: Low back pain with radiculopathy bilaterally PROTOCOL: Multiplanar multisequence MR images of the lumbar spine without IV contrast COMPARISON: 06/15/2023 FINDINGS: The bones of the lumbar spine are in anatomic alignment. There is preservation of vertebral body heights. There is moderate disc height loss at L2-L3. There is severe disc height loss at L4-5. There is mild disc height loss at L3-L4 and L5-S1. There is a benign-appearing hemangioma at T12. Mild Modic type I endplate edema is noted at L4-L5. The conus terminates at the mid L1 vertebral body level. No epidural or paraspinous fluid collection is appreciated. At T12-L1: There is a normal disc, central canal, and neural foramen. At L1-L2: There is a broad-based disc bulge with facet hypertrophy. There is no significant stenosis. This is unchanged. At L2-L3: There is a circumferential disc bulge with facet hypertrophy, ligament flavum thickening, and small bilateral facet effusions. There is moderate spinal canal stenosis with mild left and moderate right neural foraminal narrowing. This is similar to the prior exam. At L3-L4: There is a circumferential disc bulge with facet hypertrophy and ligamentum flavum thickening. There is moderate to severe spinal canal stenosis with mild left and moderate right neural foraminal stenosis similar to the prior exam. At L4-L5: There is a circumferential disc bulge with facet hypertrophy and ligamentum flavum thickening contributing to severe spinal canal stenosis. There is moderate to severe bilateral neural foraminal narrowing, left greater than right. This is unchanged. At L5-S1: There is a circumferential disc bulge with facet hypertrophy. There is accompanying endplate osteophyte formation. There is severe left and mild right neural foraminal narrowing. There is mass effect on the exiting left L5 nerve roots. There is mild spinal canal narrowing. This is unchanged. MR/MR lumbar spine wo con IMPRESSION: At L5-S1: There is a circumferential disc bulge with facet hypertrophy. There is accompanying endplate osteophyte formation. There is severe left and mild right neural foraminal narrowing. There is mass effect on the exiting left L5 nerve roots. There is mild spinal canal narrowing. This is unchanged. Additional but lesser degrees of degenerative changes are redemonstrated throughout the lumbar spine without significant interval progression when compared to the previous exam. Impression dictated by: Silvestre Lal M.D. 04/19/2025 12:09 PM Dictation Location: [place] [address] Electronically authenticated by: [id number] Y Date: 04/19/2025 12:09
== END 2025-04-19 10:06 | disposition home or self-care (01) ==
LOC: MRI 10:07
PROVIDERS: PCP Family Medicine
DX: M48.062 Spinal stenosis, lumbar region with neurogenic claudication (principal); M51.369 Other intervertebral disc degeneration, lumbar region without mention of lumbar back pain or lower extremity pain
CPT/HCPCS: 72148

== ENCOUNTER 2025-04-19 10:11 | Outpatient (OUT) | payer MEDICARE, SELFPAY ==
[2025-04-19 12:20] LABS: Estimated Average Glucose 160 mg/dL; Glycohemoglobin A1C 7.2 % (4.5-6.2)
== END 2025-04-19 10:12 | disposition home or self-care (01) ==
LOC: LAB 10:13
PROVIDERS: PCP Family Medicine; Visit Provider Family Medicine
DX: E08.00 Diabetes mellitus due to underlying condition with hyperosmolarity without nonketotic hyperglycemic-hyperosmolar coma (NKHHC) (principal)
CPT/HCPCS: 36415; 83036